=== PATIENT | female | born 1960 | race Caucasian/White ===

== ENCOUNTER 2020-04-18 10:13 | Emergency (ER) | payer BC ==
[~2020-04-18] VITALS: Ht 152.4 cm; Wt 64.0 kg
--- NOTE | 2020-04-18 10:46 | Emergency Department Note ---
History of Present Illnes History of Present Illness Chief Complaint: General Medicine Complaints History of Present Illness This is a 60 year old female Patient presents to the ER with reports of low platelet count. Patient reports that her doctor wanted her to get platelet transfusions. ER MD made patient aware that she would have to be admitted for the blood products transfusion. Patient states she does not want to be admitted here and states she would like to leave. 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 Any updates have been documented here. Past Medical History Recent Fever: No Clinical Suspicion of Infectio: No New/Unexplained Change in Ment: No Other Medical History: AML Past Surgical History: Social History Smoking Cessation: Never Smoker Counseling Performed: No Alcohol Use: None Any Illegal Drug Use: No TB Exposure/Symptoms: No Physically hurt or threatened: No Family History Family history of heart diseas: No Other Any Pre-Existing Lines (PICC,: No Review of Systems Review of Systems Constitutional: Reports no symptoms EENTM: Reports no symptoms Cardiovascular: Reports no symptoms Respiratory: Reports no symptoms Gastrointestinal: Reports no symptoms Genitourinary: Reports no symptoms Musculoskeletal: Reports no symptoms Integumentary: Reports as per HPI Neurological: Reports no symptoms Psychological: Reports no symptoms Endocrine: Reports no symptoms Hematological/Lymphatic: Reports no symptoms Physical Exam Related Data Triage Vital Signs Vital Signs Date Time Temp Pulse Resp B/P (MAP) Pulse Ox O2 Delivery O2 Flow Rate FiO2 04/18/20 10:18 97.8 97 16 160/83 100 Room Air Vital signs reviewed: Yes Physical Exam CONSTITUTIONAL Constitutional: Present well-developed, Present well-nourished HENT HENT: Present normocephalic, Present atraumatic, Present oropharynx clear/mois t, Present nose normal HENT L/R: Present left ext ear normal, Present right ext ear normal EYES Eyes: Reports PERRL, Reports conjunctivae normal NECK Neck: Present ROM normal PULMONARY Pulmonary: Present effort normal, Present breath sounds normal CARDIOVASCULAR Cardiovascular: Present regular rhythm, Present heart sounds normal, Present capillary refill normal, Present normal rate GASTROINTESTINAL Abdominal: Present soft, Present nontender, Present bowel sounds normal GENITOURINARY Genitourinary: Present exam deferred SKIN Skin: Present warm, Present dry, Present other (small areas of ecchymosis left arm, 1 cm area in mouth left cheek internally) MUSCULOSKELETAL Musculoskeletal: Present ROM normal NEUROLOGICAL Neurological: Present alert, Present oriented x 3, Present no gross motor or sensory deficits PSYCHOLOGICAL Psychological: Present mood/affect normal, Present judgement normal Assessment & Plan Medical Decision Making MDM pt advised that due to small ER here, we will need to admit for transfusion - she does not want admission. I offered to transfer pt but she wants to leve and go to [facility] where they will do transfusion Reassessment Reassessment dc home, pt wants to drive to [facility] now Assessment & Plan Final Impression: (1) Thrombocytopenia Depart Disposition: HOME, SELF-CARE Last Vital Signs Date Time Temp Pulse Resp B/P (MAP) Pulse Ox O2 Delivery O2 Flow Rate FiO2 04/18/20 10:18 97.8 97 16 160/83 100 Room Air SID MARTINEZ MD Apr 18, 2020 10:46
--- OUTSIDE RECORDS SUMMARY | 2020-04-19 09:58 | XMS REPORT | Clinical Summary ---
Author Author [facility] Address Unknown Phone Unavailable Care Team Providers Care Medical Office Manager Name Role Phone Kayleigh Green MD PCP Allergies Comments Active Allergy Reactions Severity Noted Date Latex Dermatitis 08/20/2019 Medications End Date Status Medication Sig Dispensed Refills Start Date Active cyanocobalamin, vitamin Take 800 mcg 0 B-12, 1,000 mcg/mL drops by mouth daily. Active ascorbic acid, vitamin C, Take 1,000 mg 0 (VITAMIN C) 1000 MG by mouth tablet daily. 11/07/2020 Active calcium carbonate-vitamin Take 1 tablet 0 10/28 D3 500 mg-200 unit per by mouth 0 tablet daily. Active polycarbophil (FIBERCON) Take 625 mg 0 625 mg tablet by mouth daily. Active multivitamin (THERAGRAN) Take 1 tablet 0 tablet by mouth daily. Active omeprazole (PriLOSEC) 20 Take 1 0 MG capsule capsule by mouth daily. Active valACYclovir (VALTREX) Take 500 mg 0 500 MG tablet by mouth 0 daily. Active VITAMIN B COMPLEX ORAL Take 1 tablet 0 by mouth daily. Active vitamin E 1000 UNIT Take 1,000 0 capsule Units by mouth daily. Active voriconazole (VFEND) 200 Take 1 tablet 0 02/28 / MG tablet by mouth 2 0 (two) times a day. 01/27/2021 Active zinc sulfate (ZINCATE) Take 200 mg 0 220 (50) mg capsule by mouth 0 daily. 09/21/2019 ciprofloxacin (Cipro) 500 Take 1 tablet 60 tablet 0 08/21/202 MG tablet (500 mg 0 total) by mouth 2 (two) times a day for 30 days. 09/21/2019 sulfamethoxazole-trimetho Take 1 tablet 12 tablet 0 prim (Bactrim DS) 800-160 by mouth 3 0 mg per tablet (three) times a week for 30 days. 01/14/2020 levoFLOXacin (LEVAQUIN) Take 500 mg 0 500 MG tablet by mouth 0 daily. 02/26/2020 voriconazole (VFEND) 200 Take 200 mg 0 12/21 MG tablet by mouth 2 0 (two) times a day. Active Problems Problem Noted Date Pre-transplant evaluation for stem cell transplant 1 Acute myeloid leukemia not having achieved remission 2020 Overview: 08/20/2019 bone marrow showed MDS with e xcess blasts-2, erythroid predominance, 15% myeloblasts and moder ate myelofibrosis grade 2, focal increase in myeloblasts 20%. Flow showe d 7% myeloblasts POSITIVE: CD13, CD34, HLA-DR. 09/07/2019 whole blood flow showed 9.23% myeloblasts. CD34, CD117, CD13, CD33, CD7, HLA-DR. NGS RUNX1+ at 45.9%, FISH negative for FLt3, IDHA, IDH2, RNUX1, BCR-Abl, not able to do cytogene tics 09/20/2019 Induction chemo with daunarub icon + cytarabine 3+7, complicated by neutropenic fever 10/23/2019 bone marrow showed 20% myelob lasts. 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 CT showed bilateral up per lobe lesions and MRI of LLE showed muscle abscesses. 11/28/2019 bone marrow shows complete rem ission with 20-80% cellularity, 1% blasts, normal female cytogenetics. 12/17/19 HiDac cycle #1 consolidation, c omplicated by admission for neutropenic fever 12/28-01/04/2020 01/23/2020 HiDac cycle #2 02/20/2020 HiDAC cycle #3 on 02/20/2020, complicated by neutropenic fever with admission on 03/08-03/12/2020. 03/27/2020 BM 70% cellular, AML in lemuel ssion. Flow negative. Cytogenetics 46 XX FISH AML normal RUNX-1 PCR negati ve NGS: RUNX1 c.292del, p.Zkk73mi ([id number]) Variant Frequency: 48.2%, DNMT3A c.1507del, p.Nmm838js ([id number]) Variant Frequency: 2.0% EZH2 c.1555T>C, p.Sin264Qxb ([id number]) Variant Frequency: 48.1% Fusarium 09/28/2019 Overview: 09/2019 skin Aspergillus 09/28/2019 Overview: skin/lungs Pancytopenia 08/20/2019 GI bleed 08/20/2019 Encounters Care Team Description Date Type Specialty Hao Luciano 04/18/2020 Documentation Hematology and Onco logy Caitlyn Rivas MD Canceled (Insurance Pending) 04/17/2020 Infusion Neurology 04/16/2020 Shelley aBshir, Maurice Matthews MD Acute myeloid leukemia not having achiev ed remission (HCC) (Primary Dx) 04/02/2020 Hospital Hematology and Onco logy Encounter 04/02/2020 Shelley Bashir NP Carrum, George, MD Acute myeloid leukemia not having achiev ed remission (HCC) (Primary Dx); Pre-transplant evaluation for stem cell transplant 03/27/2020 [facility] Hematology and Onco logy Encounter 03/27/2020 Keena Cooley LCSW 03/27/2020 Social Work Oncology Maurice Olea MD Acute myeloid leukemia not having achiev ed remission (HCC); Pre-transplant evaluation for stem cell transplant; Status post chemotherapy 03/25/2020 Hospital Procedural Cardiolo gy Encounter Teresa Levi RN Acute myeloid leukemia not having achiev ed remission (HCC) (Primary Dx); Pre-transplant evaluation for stem cell transplant 03/25/2020 Orders Only Hematology and Onco logy 03/25/2020 Maurice Swenson MD Acute myeloid leukemia not having achiev ed remission (HCC); Pre-transplant evaluation for stem cell transplant; Status post chemotherapy 03/18/2020 Hospital Radiology Encounter Maurice Olea MD Acute myeloid leukemia not having achiev ed remission (HCC) 03/18/2020 Hospital Pulmonology Encounter 03/18/2020 Travel 03/13/2020 Teresa Roberts RN Acute myeloid leukemia not having achiev ed remission (HCC) (Primary Dx); Pre-transplant evaluation for stem cell transplant; Status post chemotherapy 03/13/2020 Orders Only Hematology and Onco logy Maurice Olea MD 03/03/2020 Lab Lab Maurice Olea MD 02/22/2020 Lab Lab Maurice Olea MD Escudier, Susan M., MD Canceled (Scheduling Error) 02/13/2020 Infusion Neurology Caitlyn Rivas MD Acute myeloid leukemia not having achiev ed remission (HCC) (Primary Dx) 02/13/2020 Infusion Neurology 02/13/2020 Travel 02/12/2020 Travel Maurice Olea MD 02/11/2020 Lab Lab 02/11/2020 Teresa Roberts RN Acute myeloid leukemia not having achiev ed remission (HCC) (Primary Dx) 02/11/2020 Orders Only Hematology and Onco logy Maurice Olea MD 01/25/2020 Lab Lab Maurice Olea MD Scholoff, Audrey C., JACEY Acute myeloid leukemia not having achiev ed remission (HCC) (Primary Dx) 01/10/2020 Hospital Hematology and Onco logy Encounter 01/10/2020 Teresa Roberts RN Stem cell donor (Primary Dx) 2020 Orders Only Hematology and Onco logy Teresa Levi RN 2020 Orders Only Hematology and Onco logy Maurice Olea MD Scholoff, Audrey C., JACEY Canceled (Admitted/Hospitalized) 01/07/2020 [facility] Hematology and Onco logy Encounter Maurice Olea MD Scholoff, Audrey C., MANAGER CAMP Canceled (Department/Provider) 01/03/2020 [facility] Hematology and Onco logy Encounter Radha Burciaga MD Bavare, Arusha Amod, MD Bokhari, Syed Muhammad Javed, MD Pancytopenia (HCC) (Primary Dx); Gastrointestinal hemorrhage associated with gastritis, unspecified gastritis type 08/20/2019 [facility] Internal Me dicine - Encounter 08/22/2019 Flako Diane NP Gastrointestinal hemorrhage associated w ith gastritis, unspecified gastritis type (Primary Dx) 08/20/2019 Orders Only Family Medicine after 04/18/2019 Surgical History Surgery Date Site/Laterality Comments CYST REMOVAL 05/30/1991 - Right ear 05/29/1992 SECTION 05/30/1988 - 199105/29/1989 TONSILLECTOMY AND 05/30/1960 - ADENOIDECTOMY 05/29/1961 PERIPHERALLY INSERTED 09/19/2019 Right CENTRAL CATHETER INSERTION Medical History Medical History Date Comments AML (acute myelogenous leukemia) (HCC) 07/2019 Chronic tension headaches Aspergillus (HCC) 09/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 Mood disorder (HCC) anxiety/depression Family History Medical History Relation Name Comments Diabetes Brother age 64 Hepatitis Brother age 55 Hep C Alzheimer's disease Father 76 Heart disease Father 76 hypertension Schizophrenia Father 76 Acute myelogenous Mother 72 leukemia Relation Name Status Comments Brother age 64 Alive Brother age 55 Father 76 Mother 72 Social History Date Tobacco Use Types Packs/Day Years Used Quit: 1982 Former Smoker Cigarettes 0.1 6 Smokeless Tobacco: Never Used Drinks/Week oz/Week Comments Alcohol Use Not Currently Social Isolation Answer Date Recorded In a typical week, how many times do you talk on More than three times a week 01/10/2020 the phone with family, friends, or neig hbors? How often do you get together with friends or More than th ree times a week 01/10/2020 relatives? How often do you attend druze or confucianism 1 to 4 times p year 01/10/2020 services? Do you belong to any clubs or organizations such No 01/10/2020 as druze groups, unions, fraternal or athletic groups, or school groups? How often do you attend meetings of the clubs or Never 01/10/2020 organizations you belong to? Are you now , , , , 01/10/2020 never or living with a partner? Physical Activity Answer Date Recorded On average, how many days per week do you engage 0 days 01/10/2020 in moderate to strenuous exercise (like walking fast, running, jogging, dancing, swimmi ng, biking, or other activities that cause a light or heavy sweat)? On average, how many minutes do you engage in Not as ked exercise at this level? Stress Answer Date Recorded Do you feel stress - tense, restless, nervous, or To some extent 01/10/2020 anxious, or unable to sleep at night be cause your mind is troubled all the time - these d ays? Financial Resource Strain Answer Date Recorde d How hard is it for you to pay for the very basics Not hard at all 01/10/2020 like food, housing, medical care, and h eating? Intimate Partner Violence Answer Date Recorde d Within the last year, have you been afraid of your No 01/10/2020 partner or ex-partner? Within the last year, have you been humiliated or No 01/10/2020 emotionally abused in other ways by you r partner or ex-partner? Within the last year, have you been kicked, hit, No 01/10/2020 slapped, or otherwise physically hurt b y your partner or ex-partner? Within the last year, have you been raped or No 01/10/2020 forced to have any kind of sexual activ ity by your partner or ex-partner? Food Insecurity Answer Date Recorded Within the past 12 months, you worried that your Never renuka e 01/10/2020 food would run out before you got money to buy more. Within the past 12 months, the food you bought Never true 01/10/2020 just didn't last and you didn't have mo saúl to get more. Transportation Needs Answer Date Recorded In the past 12 months, has lack of transportation No 01/10/2020 kept you from medical appointments or f rom getting medications? In the past 12 months, has lack of transportation No 01/10/2020 kept you from meetings, work, or gettin g things needed for daily living? Sex Assigned at Date Recorded Not on file Industry Job Start Date Occupation Not on file Not on file Not on file Date Recorded COVID-19 Exposure Response 04/16/2020 3:47 PM AUDIOMETRIST In the last month, have you been in contact with [facility] to assess someone who was confirmed or suspected to have Coronavirus / COVID-19? Last Filed Vital Signs Reading Time Taken Comments Vital Sign 168/78 04/02/2020 9:53 AM AUDIOMETRIST Blood Pressure 77 04/02/2020 9:53 AM AUDIOMETRIST Pulse 36.8 C (98.2 F) 04/02/2020 9:53 AM AUDIOMETRIST Temperature 18 04/02/2020 9:53 AM AUDIOMETRIST Respiratory Rate 100% 04/02/2020 9:53 AM AUDIOMETRIST Oxygen Saturation - - Inhaled Oxygen Concentration 64 kg (141 lb 1.5 oz) 04/02/2020 9:53 AM AUDIOMETRIST Weight 149 cm (4' 10.66") 04/02/2020 9:53 AM AUDIOMETRIST Height 28.83 04/02/2020 9:53 AM AUDIOMETRIST Body Mass Index Plan of Treatment Health Maintenance Due Date Last Done Comments CERVICAL CANCER SCREENING 01/10/1980 BREAST CANCER SCREENING 2009 COLONOSCOPY SCREENING 2009 SHINGLES VACCINES (#1) 2009 INFLUENZA VACCINE 12/29/2019 Procedures Comments Procedure Name Priority Date/Time Associated Diag nosis FAMILY TYPING (HAPLOTYPE Routine 03/31/2020 REPORT) 12:49 PM AUDIOMETRIST SURGICAL PATHOLOGY Routine 03/27/2020 REQUEST 1:01 PM CDT MISCELLANEOUS REFERRAL Routine 03/27/2020 TEST 12:42 PM CDT MISCELLANEOUS REFERRAL Routine 03/27/2020 TEST 12:42 PM CDT MISCELLANEOUS REFERRAL Routine 03/27/2020 TEST 12:42 PM CDT BONE MARROW TRAY Routine 03/27/2020 11:42 AM CDT FLOW CYTOMETRY EVALUATION Routine 03/27/2020 11:42 AM CDT LOW RESOLUTION FULL STAT 03/27/2020 TYPING BY SSO 10:31 AM CDT URINE CULTURE STAT 03/27/2020 10:05 AM CDT ECG 12-LEAD Routine 03/27/2020 Pre-transplant evaluation 9:56 AM CDT for stem cell transplant Acute myeloid leukemia not having achieved remission (HCC) TOTAL IRON BINDING STAT 03/27/2020 Pre-transpl ant evaluation CAPACITY 9:33 AM CDT for stem cell trans plant Acute myeloid leukemia not having achieved remission (HCC) FERRITIN LEVEL STAT 03/27/2020 Pre-transplant evaluation 9:33 AM CDT for stem cell transplant Acute myeloid leukemia not having achieved remission (HCC) JUANI-UMAÑA VIRUS STAT 03/27/2020 Pre-transpl ant evaluation ANTIBODY TEST 9:33 AM CDT for stem cell trans plant Acute myeloid leukemia not having achieved remission (HCC) TOXOPLASMA GONDII STAT 03/27/2020 Pre-transpla nt evaluation ANTIBODY, IGG 9:32 AM CDT for stem cell trans plant Acute myeloid leukemia not having achieved remission (HCC) TOXOPLASMA IGM AB STAT 03/27/2020 Pre-transpla nt evaluation 9:32 AM CDT for stem cell transplant Acute myeloid leukemia not having achieved remission (HCC) IMMUNOGLOBULIN M STAT 03/27/2020 Pre-transplan t evaluation 9:32 AM CDT for stem cell transplant Acute myeloid leukemia not having achieved remission (HCC) IMMUNOGLOBULIN A STAT 03/27/2020 Pre-transplan t evaluation 9:32 AM CDT for stem cell transplant Acute myeloid leukemia not having achieved remission (HCC) IMMUNOGLOBULIN G STAT 03/27/2020 Pre-transplan t evaluation 9:32 AM CDT for stem cell transplant Acute myeloid leukemia not having achieved remission (HCC) HCG QUANTITATIVE, SERUM STAT 03/27/2020 Pre-tr ansplant evaluation 9:32 AM CDT for stem cell transplant Acute myeloid leukemia not having achieved remission (HCC) SICKLE CELL SCREEN STAT 03/27/2020 Pre-transpl ant evaluation 9:32 AM CDT for stem cell transplant Acute myeloid leukemia not having achieved remission (HCC) SMEAR REVIEW STAT 03/27/2020 9:31 AM CDT ESTIMATED GFR STAT 03/27/2020 9:31 AM CDT B NATRIURETIC PEPTIDE STAT 03/27/2020 Pre-nicole splant evaluation 9:31 AM CDT for stem cell transplant Acute myeloid leukemia not having achieved remission (HCC) TYPE AND SCREEN STAT 03/27/2020 Pre-transplant evaluation 9:31 AM CDT for stem cell transplant Acute myeloid leukemia not having achieved remission (HCC) URINALYSIS SCREEN AND STAT 03/27/2020 Pre-nicole splant evaluation MICROSCOPY, WITH REFLEX 9:31 AM CDT for stem cell transplant TO CULTURE Acute myeloid leukemia not having achieved remission (HCC) MAGNESIUM LEVEL STAT 03/27/2020 Pre-transplant evaluation 9:31 AM CDT for stem cell transplant Acute myeloid leukemia not having achieved remission (HCC) PHOSPHORUS LEVEL STAT 03/27/2020 Pre-transplan t evaluation 9:31 AM CDT for stem cell transplant Acute myeloid leukemia not having achieved remission (HCC) URIC ACID LEVEL STAT 03/27/2020 Pre-transplant evaluation 9:31 AM CDT for stem cell transplant Acute myeloid leukemia not having achieved remission (HCC) LDH STAT 03/27/2020 Pre-transplant evaluation 9:31 AM CDT for stem cell transplant Acute myeloid leukemia not having achieved remission (HCC) COMPREHENSIVE METABOLIC STAT 03/27/2020 Pre-tr ansplant evaluation PANEL 9:31 AM CDT for stem cell trans plant Acute myeloid leukemia not having achieved remission (HCC) PARTIAL THROMBOPLASTIN STAT 03/27/2020 Pre-tra nsplant evaluation TIME (PTT) 9:31 AM CDT for stem cell trans plant Acute myeloid leukemia not having achieved remission (HCC) PROTHROMBIN TIME WITH INR STAT 03/27/2020 Pre- transplant evaluation 9:31 AM CDT for stem cell transplant Acute myeloid leukemia not having achieved remission (HCC) HC COMPLETE BLD COUNT STAT 03/27/2020 Pre-nicole splant evaluation W/AUTO DIFF 9:31 AM CDT for stem cell trans plant Acute myeloid leukemia not having achieved remission (HCC) NM MYOCARDIAL PERFUSION Routine 03/25/2020 Acute myeloid leukemia STRESS REST 2 DAY 12:19 PM CDT not having achieved remission (HCC) Pre-transplant evaluation for stem cell transplant Status post chemotherapy CV STRESS TEST NUCLEAR Routine 03/25/2020 Acute m yeloid leukemia CARDIO 12:19 PM CDT not having achieved remission (HCC) Pre-transplant evaluation for stem cell transplant Status post chemotherapy XR CHEST 2 VW Routine 03/18/2020 Acute myeloid l eukemia 2:25 PM CDT not having achieved remission (HCC) Pre-transplant evaluation for stem cell transplant Status post chemotherapy SPIROMETRY, DIFFUSION, Routine 03/18/2020 Acute m yeloid leukemia LUNG VOLUMES 1:20 PM CDT not having achieved remission (HCC) FAMILY TYPING (HAPLOTYPE Routine 03/03/2020 REPORT) 11:52 AM CDT FAMILY TYPING (HAPLOTYPE Routine 02/22/2020 REPORT) 7:55 AM CDT TRANSFUSE PLATELET Routine 02/13/2020 Acute myelo id leukemia PHERESIS 11:59 AM CDT not having achieved remission (HCC) PREPARE PLATELET PHERESIS Routine 02/13/2020 Acut e myeloid leukemia 8:59 AM CDT not having achieved remission (HCC) TYPE AND SCREEN Routine 02/13/2020 Acute myeloid leukemia 8:59 AM CDT not having achieved remission (HCC) FAMILY TYPING (HAPLOTYPE Routine 01/25/2020 REPORT) 11:24 AM CDT SEQUENCE BASED TYPING STAT 01/10/2020 9:37 AM CDT [facility] SEROLOGY TEST STAT 01/10/2020 Acute myeloid leukemia 9:37 AM CDT not having achieved remission (HCC) CYTOMEGALOVIRUS AB, IGM STAT 01/10/2020 Acute myeloid leukemia 9:37 AM CDT not having achieved remission (HCC) CYTOMEGALOVIRUS AB, IGG STAT 01/10/2020 Acute myeloid leukemia 9:37 AM CDT not having achieved remission (HCC) MANUAL DIFFERENTIAL Routine 08/22/2019 5:49 AM CDT IMMATURE PLATELET Routine 08/22/2019 FRACTION 5:49 AM CDT ESTIMATED GFR Routine 08/22/2019 5:49 AM CDT BASIC METABOLIC PANEL Routine 08/22/2019 5:49 AM CDT CBC WITH PLATELET AND Routine 08/22/2019 DIFFERENTIAL 5:49 AM CDT SURGICAL PATHOLOGY Routine 08/21/2019 REQUEST 12:[address] BONE MARROW BX W ASP Routine 08/21/2019 SAME SITE 12:33 PM CDT HEPATITIS ACUTE PANEL Routine 08/21/2019 9:42 AM CDT US ABDOMEN COMPLETE Routine 08/21/2019 9:12 AM CDT MANUAL DIFFERENTIAL Routine 08/21/2019 5:02 AM CDT IMMATURE PLATELET Routine 08/21/2019 FRACTION 5:02 AM CDT CBC WITH PLATELET AND Routine 08/21/2019 DIFFERENTIAL 5:02 AM CDT TRANSFUSE RED BLOOD CELLS Routine 08/21/2019 1:56 AM CDT TRANSFUSE RED BLOOD CELLS Routine 08/20/2019 8:45 PM CDT TOTAL IRON BINDING Routine 08/20/2019 CAPACITY 7:12 PM CDT LDH Routine 08/20/2019 7:12 PM CDT HAPTOGLOBIN Routine 08/20/2019 7:12 PM CDT DIRECT KENAN' (DEO) Routine 08/20/2019 7:12 PM CDT VITAMIN B12 LEVEL Routine 08/20/2019 7:12 PM CDT FERRITIN LEVEL Routine 08/20/2019 7:12 PM CDT FLOW CYTOMETRY EVALUATION Routine 08/20/2019 7:12 PM CDT XR CHEST 1 VW PORTABLE Routine 08/20/2019 6:50 PM CDT TTE COMPLETE, W CONTRAST, Routine 08/20/2019 W DOPPLER ([id number]) 6:35 PM CDT ECG 12-LEAD Routine 08/20/2019 5:55 PM CDT PREPARE PLATELET PHERESIS STAT 08/20/2019 5:50 PM CDT PREPARE RBC STAT 08/20/2019 5:50 PM CDT PREPARE PLATELET PHERESIS STAT 08/20/2019 5:50 PM CDT PREPARE RBC STAT 08/20/2019 5:50 PM CDT MANUAL DIFFERENTIAL STAT 08/20/2019 5:50 PM CDT IMMATURE PLATELET STAT 08/20/2019 FRACTION 5:50 PM CDT ESTIMATED GFR STAT 08/20/2019 5:50 PM CDT PARTIAL THROMBOPLASTIN STAT 08/20/2019 TIME (PTT) 5:50 PM CDT TYPE AND SCREEN STAT 08/20/2019 5:50 PM CDT PROTHROMBIN TIME WITH INR STAT 08/20/2019 5:50 PM CDT COMPREHENSIVE METABOLIC STAT 08/20/2019 PANEL 5:50 PM CDT CBC WITH PLATELET AND STAT 08/20/2019 DIFFERENTIAL 5:50 PM CDT AMMONIA LEVEL Routine 08/20/2019 5:50 PM CDT after 04/18/2019 Results * Family typing (haplotype report) (03/31/2020 12:49 PM AUDIOMETRIST) Only the most recent of 4 results within the time period is included. [facility] Famiy typing See link below for PDF Lab [place] (haplotype Report [facility] report) HOSPITAL Specimen Performing Organization Address City/State/ZIP Code P raine Number [address] [address] PATHOLOGY AND GENOMIC MEDICINE [facility] * Surgical pathology request (03/27/2020 1:01 PM CDT) Only the most recent of 2 results within the time period is included. [facility] DEPARTMENT OF PATHOLOGY AND GENOMIC MEDICINE Surgical See link below for PDF Lab [facility] DEPART [facility] pathology Report OF PATHOLOGY report AND GENOMIC MEDICINE Result status This is Final Report for [facility] DEPARTME NT [id number] OF PATHOLOGY AND GENOMIC MEDICINE Specimen Performing Organization Address City/State/ZIP Code P raine Number [facility] DEPARTMENT OF [address] [place] [address] PATHOLOGY AND GENOMIC MEDICINE * Miscellaneous referral test (03/27/2020 12:42 PM CDT) Only the most recent of 3 results within the time period is included. Misc test name [facility] SHOWN ABOVE Misc test see note SHOWN ABOVE result Comment: CHROMOSOME/FISH ANALYSIS ONCOLOGY Chromosome Analysis Indication: AML Sample Type: BONE MARROW METHOD OF ANALYSIS: GTG-Banding RESULTS:999 46,XX[20] INTERPRETATION : Normal female chormosome analysis with no clonal abnormalities observed. ---- FISH ONCOLOGY ANALYSIS Method of Analysis: FISH FISH Nuclei examined: 1000 Results: NORMAL: 8 Centromere (D8Z2x2) - Gain of chromosome 8 NOT detected t(8;21)(q22;q22) (QRNC4N5/RUNX1) - Translocation NOT detected 11q23 (KMT2A) - Rearrangement NOT detected t(15;17)(q24;q21) (PML/JANET) - Translocation NOT detected inv(16)(p13.1q22) or t(16;16) (CBFB) - Rearrangement NOT detected INTERPRETATION : Normal FISH analysis for the above loci. Fluorescence in situ hybridization (FISH) studies were performed on this specimen using a panel of DNA probes as listed above designed to detect abnormalities frequently observed in acute myeloid leukemia (AML). At least two hundred nuclei were analyzed for each probe, and all probe sets scored within their normal ranges. Therefore, these results are interpreted as normal. It should be noted that approximately 2-5% of APL patients are estimated to have a cryptic insertion of JANET into PML which could be missed by the dual color, dual fusion probe set. If there is a strong clinical impression of APL, PCR analysis would be warranted. ISCN: nuc natasha(D8Z2,HYUQ0P9,KMT2A,PML,CBF B,JANET,RUNX1)x2[200] Test performed by: [facility] [address] [place] [address]. [place] [id number] Specimen Performing Organization Address City/State/ZIP Code P raine Number [facility] [place] [place] [address] PATHOLOGY AND GENOMIC MEDICINE SHOWN ABOVE * Bone marrow tray (03/27/2020 11:42 AM CDT) Bone marrow Done [facility] Specimen Fluid Performing Organization Address City/[facility]/[place] [address] PATHOLOGY AND GENOMIC MEDICINE [address] * Flow cytometry evaluation (03/27/2020 11:42 AM CDT) Only the most recent of 2 results within the time period is included. Pathologist [facility] Flow cytometry See link below for PDF Lab [place] evaluation Report [facility] Specimen Narrative Performed At This result has an attachment that is n ot available. Performing Organization Address [facility] Code P raine Number [facility] [place] [place] [address] PATHOLOGY AND GENOMIC MEDICINE [facility] * Low resolution full typing by SSO (03/27/2020 10:31 AM CDT) Pathologist [facility] Interpretation Note: HLA typing was performed [place] by PCR-SSO DNA based [facility] procedures. HOSPITAL Note: The serological phenotype is an interpretation based on molecular typing data. [facility] Low resolution See link below for PDF [facility] full typing by Report [facility] Specimen Blood Performing Organization Address City/[facility]/ZIP Code P raine Number [facility] [place] [address] PATHOLOGY AND GENOMIC MEDICINE [address] * Urine culture (03/27/2020 10:05 AM CDT) [facility] Urine culture SEE COMMENTComment: [place] Bacteriuria screen negative. [facility] Specimen Performing Organization Address City/[facility]/ZIP Code P raine Number [facility] DEPARTMENT OF [address] [place] [address] PATHOLOGY AND GENOMIC MEDICINE [address] * ECG 12 lead (03/27/2020 9:56 AM CDT) Only the most recent of 2 results within the time period is included. Ventricular 66 [facility] MUSE rate Atrial rate 66 [facility] MUSE [place] interval 178 [facility] QRSD interval 68 [facility] QT interval 412 [facility] QTC interval 431 [facility] P axis 1 53 [facility] MUSE QRS axis 1 56 HM MUSE T wave axis 54 [facility] EKG impression Normal sinus [facility] MUSE rhythm- Specimen Narrative Performed At This result has an attachment that is n ot available. Performing Organization Address City/[facility] [place] [address] * Juani-Umaña virus antibody test (03/27/2020 9:33 AM CDT) Pathologist [facility] EBV Ab to viral Positive (A) Negative [place] capsid Ag, IgG [facility] EBV Ab to viral Negative Negative [place] capsid Ag, IgM [facility] EBV Ab to Positive (A) Negative [place] nuclear Ag, IgG [facility] EBV Ab to early Negative Negative [place] (D) Ag, IgG [facility] Juani-Umaña SEE COMMENTComment: Infection [place] virus antibody Status: Results may suggest HOAHAOISM interpretation past EBV infection. HOSPITAL Specimen Serum Performing Organization Address [facility] P raine Number [facility] DEPARTMENT OF [address] [place] [address] PATHOLOGY AND GENOMIC MEDICINE [address] * Total iron binding capacity (03/27/2020 9:33 AM CDT) Only the most recent of 2 results within the time period is included. Pathologist [facility] Iron level 60 37 - 145 ug/dL [facility] Iron binding 228 200 - 400 ug/dL [facility] % Saturation 26.3 15.0 - 38.0 % [facility] Specimen Plasma Performing Organization Address [facility] P raine Number [facility] [place] [place] [address] PATHOLOGY AND GENOMIC MEDICINE [address] * Ferritin level (03/27/2020 9:33 AM CDT) Only the most recent of 2 results within the time period is included. [facility] Ferritin level 1,817 (H) 13 - 150 ng/mL [facility] Specimen Plasma Performing Organization Address City/[facility] P raine Number [facility] [place] [address] PATHOLOGY AND GENOMIC MEDICINE [address] * Toxoplasma IgM Ab (03/27/2020 9:32 AM CDT) [facility] Toxoplasma IgM Negative Negative [facility] Specimen Blood Performing Organization Address [facility] P raine Number [facility] [place] [address] PATHOLOGY AND GENOMIC MEDICINE [address] * Toxoplasma gondii antibody, IgG (03/27/2020 9:32 AM CDT) [facility] Toxoplasma <3 0 - 9 IU/mL [place] gondii Ab, IgG Comment: HOAHAOISM Equal or less than 9 IU/mL HOSPITAL Negative; No previous T. gonii infection Specimen Serum Performing Organization Address [facility] P raine Number [facility] [place] [address] PATHOLOGY AND GENOMIC MEDICINE [address] * Sickle cell screen (03/27/2020 9:32 AM CDT) [facility] Sickle cells Negative [place] Comment: HOAHAOISM This is a screening test. If HOSPITAL positive, confirmation by a definitive method such as Hemoglobin Electrophoresis is recommended if clinically indicated. Smear review, Smear Reviewed [place] sickle cell HOAHAOISM screen HOSPITAL Specimen Plasma Performing Organization Address [facility] P raine Number [facility] [place] [address] PATHOLOGY AND GENOMIC MEDICINE [address] * hCG quantitative, serum (03/27/2020 9:32 AM CDT) [facility] hCG <1 0 - 5 mIU/mL [place] quantitative, Comment: HOAHAOISM serum Reference range for HCG Quant HOSPITA L applies to males and non- females. Post Menopausal 0.0 - 8.1 mIU/mL Specimen Plasma Performing Organization Address City/[facility] Code P raine Number [facility] DEPARTMENT OF [address] [place] [address] PATHOLOGY AND GENOMIC MEDICINE [address] * Immunoglobulin A (03/27/2020 9:32 AM CDT) IgA <50 (L) 70 - 400 mg/dL [facility] Specimen Plasma Performing Organization Address City/[facility]/ZIP [facility] P raine Number [facility] [place] [address] PATHOLOGY AND GENOMIC MEDICINE [address] * Immunoglobulin M (03/27/2020 9:32 AM CDT) IgM <25 (L) 33 - 255 mg/dL [facility] Specimen Plasma Performing Organization Address City/[facility] P raine Number [facility] [place] [address] PATHOLOGY AND [facility] MEDICINE [address] * Immunoglobulin G (03/27/2020 9:32 AM CDT) IgG 509 (L) 700 - 1,600 mg/dL [facility] Specimen Plasma Performing Organization Address City/[facility] P raine Number [facility] [place] [address] PATHOLOGY AND GENOMIC MEDICINE [address] * Urinalysis screen and microscopy, with reflex to culture (03/27/2020 9:31 AM CDT) Specimen site Clean catch [facility] Color, UA Yellow [facility] Appearance, UA Clear [facility] Specific 1.006 1.001 - 1.035 [place] gravity, [facility] pH, UA 6.0 5.0 - 8.5 [facility] Protein, UA Negative Negative [facility] Glucose, UA Negative Negative [facility] Ketones, UA Negative Negative [facility] Bilirubin, UA Negative Negative [facility] Blood, UA Negative Negative [facility] Nitrite, UA Negative Negative [facility] Urobilinogen, <2.0 <2.0 [facility] Leukocyte Negative Negative [place] esterase, [facility] WBC, UA None seen 0 - 4 /HPF [facility] RBC, UA <1 0 - 5 /HPF [facility] Bacteria, UA None seen None seen [facility] Yeast, UA None seen [facility] Yeast with None seen [place] [facility] Specimen Urine Performing Organization Address City/[facility]/ZIP Code P raine Number [facility] [place] [address] PATHOLOGY AND GENOMIC MEDICINE [address] * Smear review (03/27/2020 9:31 AM CDT) Pathologist [facility] Platelet slide Decreased (A) [facility] Anisocytosis Moderate [facility] Polychromasia Moderate [facility] Tear drop cells Occasional [facility] Schistocytes Occasional [facility] Spherocytes Occasional [facility] Ovalocytes Moderate [facility] Specimen Plasma Performing Organization Address City/[facility] [place] [address] PATHOLOGY [address] * Estimated GFR (03/27/2020 9:31 AM CDT) Only the most recent of 3 results within the time period is included. Pathologist [facility] Estimated GFR >=90 mL/min/1.73 m2 [place] Comment: HOAHAOISM [facility] Interpretation G1 >=90 Normal or high G2 60-89 Mildly decreased G3a 45-59 Mildly to moderately decreased G3b 30-44 Moderately to severely decreased G4 15-29 Severely decreased G5 <15 Kidney failure The eGFR was calculated using the Chronic Kidney Disease Epidemiology Collaboration (CKD-EPI) equation. Interpretation is based on recommendations of the National Kidney Foundation-Kidney Disease Outcomes Quality Initiative (NKF-KDOQI) published in 2014. Specimen Plasma Performing Organization Address City/[facility] [place] [address] PATHOLOGY AND GENOMIC MEDICINE [address] * Partial thromboplastin time, activated (03/27/2020 9:31 AM CDT) Only the most recent of 2 results within the time period is included. PTT 28.3 23.0 - 36.0 sec [place] Comment: HOAHAOISM PTT therapeutic range for HOSPITAL unfractionated heparin is 61.0-112.0 seconds which corresponds to Anti-Xa 0.3-0.7 U/ml. Specimen Blood Performing Organization Address City/State/ZIP Code P raine Number [facility] OF [address] [place] [address] PATHOLOGY AND [facility] MEDICINE [address] * Prothrombin time with INR (03/27/2020 9:31 AM CDT) Only the most recent of 2 results within the time period is included. [facility] Prothrombin 13.8 11.5 - 14.5 sec [facility] INR 1.0 [place] Comment: HOAHAOISM The International Normalized HOSPITAL Ratio (INR) is a therapeutic monitoring tool for patients who are stable on oral anticoagulant therapy. An INR of 2.0-3.0 is suggested for deep vein thrombosis/pulmonary embolism. Specimen Blood Performing Organization Address City/State/[facility] [place] [address] PATHOLOGY AND [facility] MEDICINE [address] * CBC with platelet and differential (03/27/2020 9:31 AM CDT) Only the most recent of 4 results within the time period is included. [facility] WBC 2.87 (L) 4.50 - 11.00 k/uL [facility] RBC 2.92 (L) 4.20 - 5.50 m/uL [facility] HGB 10.6 (L) 12.0 - 16.0 g/dL [facility] HCT 32.2 (L) 37.0 - 47.0 % [facility] MCV 110.3 (H) 82.0 - 100.0 fL [facility] MCH 36.3 (H) 27.0 - 34.0 pg [facility] MCHC 32.9 31.0 - 37.0 g/dL [facility] RDW - SD 76.2 (H) 37.0 - 55.0 fL [facility] MPV 10.4 8.8 - 13.2 fL [facility] Platelet count 74 (L) 150 - 400 k/uL [facility] Neutrophils 57.3 39.0 - 69.0 % [facility] Lymphocytes 14.6 (L) 25.0 - 45.0 % [facility] Monocytes 26.8 (H) 0.0 - 10.0 % [facility] Eosinophils 1.0 0.0 - 5.0 % [facility] Basophils 0.3 0.0 - 1.0 % [facility] Specimen Plasma Performing Organization Address City/[facility]/ZIP Code P raine Number [facility] [place] [address] PATHOLOGY AND [facility] MEDICINE [address] * Type and screen (03/27/2020 9:31 AM CDT) Only the most recent of 3 results within the time period is included. ABO grouping O [facility] Rh type POS [facility] Antibody screen NEG [place] (gel) [facility] Specimen Plasma Performing Organization Address City/[facility]/ZIP Code P raine Number [facility] [place] [address] PATHOLOGY AND [facility] MEDICINE [address] * Uric acid level (03/27/2020 9:31 AM CDT) Uric acid 3.8 2.4 - 5.7 mg/dL [facility] Specimen Plasma Performing Organization Address City/[facility]/ZIP [facility] P raine Number [facility] [place] [address] PATHOLOGY AND [facility] MEDICINE [address] * Phosphorus level (03/27/2020 9:31 AM CDT) Phosphorus 3.7 2.4 - 4.5 mg/dL [facility] Specimen Plasma Performing Organization Address City/[facility]/ZIP [facility] P raine Number [facility] [place] [address] PATHOLOGY AND [facility] MEDICINE [address] * B natriuretic peptide (03/27/2020 9:31 AM CDT) BNP 28 0 - 100 pg/mL [facility] Specimen Blood Performing Organization Address City/[facility]/ZIP [facility] P raine Number [facility] [place] [address] PATHOLOGY AND [facility] MEDICINE [address] * Magnesium level (03/27/2020 9:31 AM CDT) Magnesium 2.1 1.6 - 2.4 mg/dL [facility] Specimen Plasma Performing Organization Address City/State/ZIP Code P raine Number [facility] DEPARTMENT OF [address] [place] [address] PATHOLOGY AND GENOMIC MEDICINE [address] * LDH (03/27/2020 9:31 AM CDT) Only the most recent of 2 results within the time period is included. LDH 301 (H) 87 - 225 U/L [facility] Specimen Plasma Performing Organization Address City/[facility] P raine Number [facility] DEPARTMENT OF [address] [place] [address] PATHOLOGY AND GENOMIC MEDICINE [address] * Comprehensive metabolic panel (03/27/2020 9:31 AM CDT) Only the most recent of 2 results within the time period is included. Sodium 143 135 - 148 mEq/L [facility] Potassium 3.7 3.5 - 5.0 mEq/L [facility] Chloride 104 98 - 112 mEq/L [facility] CO2 25 24 - 31 mEq/L [facility] Anion gap 14@ANIO 7 - 15 mEq/L [facility] BUN 18 8 - 23 mg/dL [facility] Creatinine 0.69 0.50 - 0.90 mg/dL [facility] Glucose 83 65 - 99 mg/dL [facility] Calcium 9.6 8.8 - 10.2 mg/dL [facility] Protein 6.7 6.3 - 8.3 g/dL [place] Comment: [facility] 4.6-7.0 g/dL 1 week 4.4-7.6 g/dL 7 months-1year 5.1-7.3 g/dL 1-2 years 5.6-7.5 g/dL >3 years 6.0-8.0 g/dL 18-150 6.3-8.3 g/dL Albumin 4.0 3.5 - 5.0 g/dL [facility] A/G ratio 1.5 0.7 - 3.8 [facility] Alkaline 84 35 - 104 U/L [place] phosphatase [facility] AST 30 10 - 35 U/L [facility] ALT 25 5 - 50 U/L [facility] Total bilirubin 0.5 0.0 - 1.2 mg/dL [facility] Specimen Plasma Performing Organization Address City/State/ZIP Code P raine Number [facility] DEPARTMENT OF [address] [place] [address] PATHOLOGY [place] [address] HOSPITAL * Cv stress test (03/25/2020 12:19 PM CDT) Resting HR 75 [facility] Resting BP 146&75 [facility] Peak MET 1.0 [facility] Achieved Protocol Name SANGEETA [facility] MUSE Time in 00:01:00 [facility] MUSE Exercise Phase Max Systolic BP 163 [facility] Max Diastolic 74 [facility] BP Max Heart Rate 110 [facility] Max Predicted 159 [facility] MUSE Heart Rate Target HR (220 - Age)*100% [facility] MUSE Formula Test Indication PRE TRANSPLANT [facility] MUSE Arrhy During Ex [facility] ECG Interp [facility] Before EX ECG Interp [facility] During Ex Ex Summary [facility] M[facility] Comment Overall HR [facility] Response to Exercise Overall BP [facility] Response To Exercise Reason for Protocol Complete [facility] MUSE Termination Stress Test Waveform interpreted in report HM MU SE Impression associated with image study . No interpretation is provided as part of this Stress ECG report.--Electronically Signed By Uziel IGLESIAS, José Luis Leonardo ([id number]), city editor Summer Lau ([id number]) on 03/28/2020 4:40:03 AM Specimen Narrative Performed At This result has an attachment that is n ot available. Performing Organization Address City/[facility]/ZIP Code P raine Number [facility] MUSE [address] [place] [address] * Nm myocardial perfusion (03/25/2020 12:19 PM CDT) Specimen Narrative Performed At [facility] Cardiology Department [address] [facility] [address] [place] [address] Phone: Myocardial Pe rfusion Imaging Report Pat.Name: TIMOTHY MATHEWS Pat .ID: [id number] St.Date: 03/25/2020 Refer.MD: MAURICE OLEA MD Exam Time: 9:29:00 AM Study Type:Myocardial Perfusion Imaging Height: 59in Weight: 140lb BSA: 1.59 m2 Age: 8 1960,60Y Sex: FEMALE BP: 146/75 HR: 82 bpm Nuclear Tech:KORI GilmanMT, [facility]/Mello Nguyen [facility] Pat. Stat.:Outpatient Tape Vol: , Nuclear Event ID:[id number] Order ID: [id number] Reason for Study:Pre-Op Clearace for BM T History / Clinical:AML, GI Bleed, Pancy topenia Procedures: Single Day Stress / Rest Si ngle-Photon Emission Computed Tomography Risk Factors:None Clinical Symptoms:Regadenoson 0.4 mg ad ministered intravenously over 10 seconds Physical Exam:S1, S2 Surgery: Outpatient SUMMARY: SCINTIGRAPHIC RESULTS Perfusion Defect Size (% LV) 0 % Total 0 % Ischemia 0 % Scar Left Ventricular Perfusion Results There is normal tracer distribution dur ing stress and rest. Gated SPECT Results The post-stress left ventricular ejecti on fraction is 75 % with normal regional wall motion and left ventricul ar thickening. Left ventricular end-diastolic volume is 55 ml; end-systolic volume is 14 ml. The left ventricle is of normal siz e at stress and at rest. The right ventricle is of normal size with normal wall motion. Conclusion Normal regadenoson Tc-99m tetrofosmin m yocardial perfusion study. The left ventricular ejection fraction is n ormal. CT Findings: There appear to be no coronary artery c alcifications present. The ascending and descending aorta are norm al in size. There is no significant pericardial effusion. Limit ed lung nash show no significant abnormalities. Comments Patients with a normal stress myocardia l perfusion study have a low (< 1%) annual risk of cardiac or non fatal myocardial infarction. Study Quality/Artifacts The study quality is fair. The mild red uction in apical and anteroapical wall counts is probably due to marked breast attenuation artifact rather than coronary artery di sease which resolves with prone imaging and CT correction. Comparison to Previous Study None available. FINDINGS: STRESS: Baseline Vital Signs: Intervention Regadenoson 0.4mg/5ml IV over 10 seconds followed by radiotra cer injection and 5ml saline flush Baseline EKG Normal Sinus Rhythm Resting HR: 82 Atropine Administered: 0 Resting BP: 146/75 Stress Test Results: Target HR: 135 Symptoms and Complications: Stress-induced Arrhythmias None Reason for Stopping Test: As per Regade noson protocol Symptoms During Test Dizziness, GI disc omfort, Shortness of breath Complications None Other: Normal heart rate response to pharmacological stress, Normal blood pressure response to pharm acological stress ECG / Stress Interpretation: No ischemi c ST segment change occurred with stress. Signed 03/27/2020 09:53 AM José Luis Triplett MD Procedure Note Interface, Radiology Results In - 03/27/2020 9:54 AM CDT [facility] Nuclear Cardiology Department [address] [place] [address] Myocardial Perfusion Imaging Report Pat.Name: TIMOTHY MATHEWS Pat.ID: [id number] .Date: 03/25/2020 Refer.MD: MAURICE OLEA MD Exam Time: 9:29:00 AM Study Type:Myocardial Perfusion Imaging Height: 59in Weight: 140lb BSA: 1.59 m2 Age: 8 1960,60Y Sex: FEMALE BP: 146/75 HR: 82 bpm Nuclear Tech:KORI GilmanMT, [facility]/Mello Nguyen [facility] Pat. Stat.:Outpatient Tape Vol: , Nuclear Event ID:[id number] Order ID: [id number] Reason for Study:Pre-Op Clearace for BMT History / Clinical:AML, GI Bleed, Pancytopenia Procedures: Single Day Stress / Rest Single-Photon Emission Computed Tomography Risk Factors:None Clinical Symptoms:Regadenoson 0.4 mg administered intravenously over 10 seconds Physical Exam:S1, S2 Surgery: Outpatient SUMMARY: SCINTIGRAPHIC RESULTS Perfusion Defect Size (% LV) 0 % Total 0 % Ischemia 0 % Scar Left Ventricular Perfusion Results There is normal tracer distribution during stress and rest. Gated SPECT Results The post-stress left ventricular ejection fraction is 75 % with normal regional wall motion and left ventricular thickening. Left ventricular end-diastolic volume is 55 ml; end-systolic volume is 14 ml. The left ventricle is of normal size at stress and at rest. The right ventricle is of normal size with normal wall motion. Conclusion Normal regadenoson Tc-99m tetrofosmin myocardial perfusion study. The left ventricular ejection fraction is normal. CT Findings: There appear to be no coronary artery calcifications present. The ascending and descending aorta are normal in size. There is no significant pericardial effusion. Limited lung nash show no significant abnormalities. Comments Patients with a normal stress myocardial perfusion study have a low (< 1%) annual risk of cardiac or nonf atal myocardial infarction. Study Quality/Artifacts The study quality is fair. The mild reduction in apical and anteroapical wall counts is probably due to marked breast attenuation artifact rather than coronary artery disease which resolves with prone imaging and CT correction. Comparison to Previous Study None available. FINDINGS: STRESS: Baseline Vital Signs: Intervention Regadenoson 0.4mg/5ml IV over 10 seconds followed by radiotracer injection and 5ml saline flush Baseline EKG Normal Sinus Rhythm Resting HR: 82 Atropine Administered: 0 Resting BP: 146/75 Stress Test Results: Target HR: 135 Symptoms and Complications: Stress-induced Arrhythmias None Reason for Stopping Test: As per Regadenoson protocol Symptoms During Test Dizziness, GI discomfort, Shortness of breath Complications None Other: Normal heart rate response to pharmacological stress, Normal blood pressure response to pharmacological stress ECG / Stress Interpretation: No ischemic ST segment change occurred with stress. 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 This overlies the anterior r ight seventh rib. Is not definitely seen laterally. CT or short-term follow-up c hest x-ray could be performed to determine if this persists. Linear atelectasis or scarrin g is seen in the left upper lobe. Cardiomediastinal silhouette is within normal limits. PICC line is seen with its tip in the brachiocephalic SVC junction . 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 This overlies the anterior right seventh rib. Is not definitely seen laterally. CT or short-term follow-up chest x-ray could be performed to determine if this persists. Linear atelectasis or scarring is seen in the left upper lobe. Cardiomediastinal silhouette is within normal limits. PICC line is seen with its tip in the brachiocephalic SVC junction. [id number] Performing Organization Address City/State/ZIP Code P raine Number [facility] [address] [place] [address] * Spirometry, diffusion, lung volumes (03/18/2020 1:20 PM CDT) FEV1 Pre 2.49 1.51 - 2.47 L [facility] FEV1/FVC % Pre 88.40 68.05 - 87.64 % [facility] FVC Pre 2.82 2.01 - 3.15 L [facility] PEF Pre 4.79 3.95 - 6.76 L/s [facility] FEF 25-75% Pre 3.49 0.96 - 2.99 L/s [facility] DLCO Pre 9.60 12.56 - 25.56 [facility] ml/(min*mmHg) DL/VA Pre 2.48 3.39 - 6.02 [facility] ml/(min*mmHg*L) VA SB Pre 3.87 2.98 - 5.18 L [facility] DLCOc Pre 11.67 12.56 - 25.56 [facility] ml/(min*mmHg) KCOc SB Pre 3.02 3.39 - 6.02 [facility] ml/(min*mmHg*L) Hb Pre 8.80 g(Hb)/dL [facility] FRCpl Pre 1.89 1.54 - 3.18 L [facility] RV Pre 0.80 1.07 - 2.22 L [facility] TLC Pre 3.67 2.95 - 4.92 L [facility] RV % TLC Pre 21.69 30.11 - 49.29 % [facility] VC Pre 2.88 2.01 - 3.15 L [facility] ERV Pre 1.10 0.72 - 0.72 L [facility] IC Pre 1.78 1.40 - 1.40 L [facility] Raw Pre 0.41 3.06 - 3.06 [facility] cmH2O*s/L sGaw Predicted 1.08 0.10 - 0.10 [facility] 1/(cmH2O*s) FEV1 Predicted 1.99 [facility] FEV1 LLN 1.51 [facility] FEV1 % Pre of 125.4 % [facility] Predicted FVC Predicted 2.58 [facility] FVC LLN 2.01 [facility] FVC % Pre of 109.3 % [facility] Predicted FEV1/FVC % 78 [facility] Predicted FEV1/FVC % LLN 68 [facility] FEV1/FVC % Pre 113.6 % [facility] of Predicted FEF 25-75% 1.98 [facility] Predicted FEF 25-75% LLN 0.96 [facility] FEF 25-75% % 176.4 % [facility] Pre of Predicted PEF Predicted 5.36 [facility] PEF LLN 3.95 [facility] PEF % Pre of 89.5 % [facility] Predicted VC Predicted 2.58 [facility] VC LLN 2.01 [facility] VC % Pre of 111.5 % [facility] Predicted ERV Predicted 0.72 [facility] ERV LLN 0.72 [facility] ERV % Pre of 152.7 % [facility] Predicted FRCpl % 2.36 [facility] Predicted FRCpl % LLN 1.54 [facility] FRCpl % Pre of 80.2 % [facility] Predicted IC Predicted 1.40 [facility] IC LLN 1.40 [facility] IC % Pre of 126.8 % [facility] Predicted RV Predicted 1.64 [facility] RV LLN 1.07 [facility] RV % Pre of 48.5 % [facility] Predicted RV % TLC 40 [facility] Predicted RV % TLC LLN 30 [facility] RV % TLC % Pre 54.6 % [facility] of Predicted TLC Predicted 3.93 [facility] TLC LLN 2.95 [facility] TLC % Pre of 93.3 % [facility] Predicted Raw Predicted 3.06 [facility] Raw LLN 3.06 [facility] Raw % Pre of 13.5 % [facility] Predicted sGaw Predicted 0.10 [facility] sGaw LLN 0.10 [facility] sGaw % Pre of 1059.2 % [facility] Predicted DLCO Predicted 19.06 [facility] DLCO LLN 12.56 [facility] DLCO % Pre of 50.4 % [facility] Predicted DLCOc Predicted 19.06 [facility] DLCOc LLN 12.56 [facility] DLCOc % Pre of 61.2 % [facility] Predicted DL/VA Predicted 4.71 [facility] DL/VA LLN 3.39 [facility] DL/VA % Pre of 52.7 % [facility] Predicted KCOc SB 4.71 [facility] Predicted KCOc SB LLN 3.39 [facility] KCOc SB % Pre 64.1 % [facility] of Predicted VA SB Predicted 4.08 [facility] VA SB LLN 2.98 [facility] VA SB % Pre of 94.9 % [facility] Predicted Specimen Narrative Performed At This result has an attachment that is n ot available. Performing Organization Address [facility] [place] [address] * Transfuse platelet pheresis (02/13/2020 11:59 AM CDT) Only the most recent of 2 results within the time period is included. * Prepare platelet pheresis, 1 Units (02/13/2020 8:59 AM CDT) Only the most recent of 2 results within the time period is included. Product name Apheresis Platelet ACDA LRIRR [place] #1 [facility] Unit number [id number] [facility] Product code [id number] [facility] Dispense status Transfused [facility] Blood [id number] [place] expiration date [facility] Blood type code 6200 [facility] Blood type A POSITIVE [facility] Compatibility Not required [facility] Specimen Performing Organization Address [facility] P raine Number [facility] DEPARTMENT OF [address] [place] [address] PATHOLOGY AND GENOMIC MEDICINE [address] * Sequence based typing (01/10/2020 9:37 AM CDT) Interpretation Note: HLA typing was performed [place] by PCR-SSP/SSO and PCR-SBT DNA HOAHAOISM based procedures. HOSPITAL Although unlikely, the following uncommon alleles cannot be ruled out A*02:CCEHN=A*02:01/02:786/02:8 44/02:846/02:864/02:869 B*44:CETNY=B*44:02/44:292/44:3 21/44:457/44:464/44:470/44:477 /44:479 DRB1*01:JZDV=DRB1*01:01/01:100 DRB1*03:RPXT=DRB1*03:01/03:147 DQB1*05:CDHTN=DQB1*05:01/05:44 /05:183/05:193/05:194/05:195/0 5:216/05:230/05:232/05:234/05: 237 DQB1*02:CVBWS=DQB1*02:01/02:47 /02:109/02:112/02:148/02:163N DRB3*02:CRWSZ=DRB3*02:02/02:28 /02:29N/02:30/02:31/02:33/02:3 402:35/02:36/02:39/02:40/02:4 102:43/02:45/02:46/02:47/02:4 9:51/02:52/02:53/02:54/02:5 11/28:59/02:60/02:61Q/02:62/02: 63/02:64/02:65/02:66/02:67N/02 :68/02:69/02:70/02:71/02:72/02 :73/02:74/02:7 09/28:76/02:77/02:79/02:80N/02: 82/02:84/02:85/02:86/02:87/02: 88/02:90/02:91/02:92/02:93/02: 94/02:95N/02:96/02:97/02:98/02 :99/02:101/02:102/02:105/02:10 11/28:108/02:109N/02:110/02:113 /02:114/02:116/02:117/02:118/0 2:120/02:121N/02:122/02:123/02 :124/02:125N/0 2:126/02:127/02:128/02:129/02: 130/02:132/02:133/02:134/02:13 5/02:136/02:137N/02:138/02:139 /02:140/02:142 Common Alleles found in the above strings can only be present when paired with uncommon alleles and therefore are not resolved. [facility] Sequence based See link below for PDF Lab [place] typing Report [facility] Specimen Blood Performing Organization Address City/[facility] Code P raine Number [facility] [place] [place] [address] PATHOLOGY AND GENOMIC MEDICINE [address] * [facility] serology test (01/10/2020 9:37 AM CDT) Blood type O POS [facility] Antibody screen Negative [place] interp ([facility] Hepatitis B Non-Reactive [place] core Ab ([facility] Hepatitis B Non-Reactive [place] surface Ag [facility] Hepatitis C Non-Reactive [facility]) [facility] HIV combined Non-Reactive [facility]) [facility] HTLV combined Non-Reactive [facility]) [facility] FINA HBV ([place] Non-Reactive [facility]) [facility] FINA HIV ([place] Non-Reactive [facility]) [facility] FINA HCV ([place] Non-Reactive [facility]) [facility] FINA West Nile Non-Reactive [place] virus ([facility] RPR screen Non-Reactive [facility] [place] ([place] Non-Reactive [facility]) [facility] CMV screen Positive (A) [facility] Specimen Blood Performing Organization Address City/[facility]/ZIP Code P raine Number [facility] [place] [place] [address] PATHOLOGY AND GENOMIC MEDICINE [address] * Cytomegalovirus Ab, IgM (01/10/2020 9:37 AM CDT) Cytomegalovirus Negative Negative [place] Ab, IgM [facility] Specimen Serum Performing Organization Address City/[facility]/ZIP Code P raine Number [facility] [place] [place] [address] PATHOLOGY AND GENOMIC MEDICINE [address] * Cytomegalovirus Ab, IgG (01/10/2020 9:37 AM CDT) [facility] Cytomegalovirus Positive (A) Negative [place] Ab, IgG Comment: HOAHAOISM Positive; IgG antibody to CMV HOSPITAL detected which may indicate exposure to CMV infection. Specimen Serum Performing Organization Address City/[facility]/ZIP Code P raine Number [facility] DEPARTMENT OF [address] [place] [address] PATHOLOGY AND GENOMIC MEDICINE [address] * Immature platelet fraction (08/22/2019 5:49 AM CDT) Only the most recent of 3 results within the time period is included. [facility] IPF percentage 2.2 1.0 - 5.8 % [facility] Specimen Performing Organization Address City/State/ZIP Code P raine Number [facility] DEPARTMENT OF [address] [place] [address] PATHOLOGY AND GENOMIC MEDICINE [facility] [address] * Manual differential (08/22/2019 5:49 AM CDT) Only the most recent of 3 results within the time period is included. [facility] Manual PERFORMED [place] differential [facility] Neutrophils 31.0 (L)Comment: Corrected 36.0 - 66.0 % SHABNAM STON result; previously reported as HOAHAOISM 33.0 on 08/22/2019 at 06:16 by [facility] Lymphocytes 61.0 (H)Comment: Corrected 24.0 - 44.0 % SHABNAM STON result; previously reported as HOAHAOISM 56.9 on 08/22/2019 at 06:16 by [facility] Monocytes 7.0 (H)Comment: Corrected 0.0 - 6.0 % [facility] result; previously reported as HOAHAOISM 8.4 on 08/22/2019 at 06:16 by [facility] Eosinophils 1.0Comment: Corrected result; 0.0 - 6.0 % [place] previously reported as 0.4 on HOAHAOISM 08/22/2019 at 06:16 by [facility] Basophils 0.0 0.0 - 1.2 % [facility] Metamyelocytes 0 0 - 1 % [facility] Promyelocytes 0 0 - 1 % [facility] Platelet slide Mkd decreased (A) [place] review [facility] Anisocytosis slight [facility] Polychromasia slight [facility] Tear drop cells Occasional [facility] Schistocytes Occasional [facility] Ovalocytes Occasional [facility] Home cells Occasional [facility] Enlarged Occasional [place] platelets [facility] Giant platelets Occasional [facility] Specimen Performing Organization Address City/State/ZIP Code P raine Number [facility] DEPARTMENT OF [facility] [place] [address] PATHOLOGY AND GENOMIC MEDICINE [address] * Basic metabolic panel (08/22/2019 5:49 AM CDT) Sodium 139 135 - 150 mEq/L [facility] Potassium 4.2 3.5 - 5.0 mEq/L [facility] Chloride 104 98 - 112 mEq/L [facility] CO2 20 (L) 24 - 31 mmol/L [facility] Anion gap 15@ANIO 7 - 15 mEq/L [facility] BUN 18 7 - 18 mg/dL [facility] Creatinine 0.70 0.50 - 0.90 mg/dL [facility] Glucose 99 65 - 100 mg/dL [facility] Calcium 9.2 8.8 - 10.2 mg/dL [facility] Specimen Blood Performing Organization Address City/State/ZIP Code P raine Number [facility] DEPARTMENT OF [address] [place] [address] [place] [address] PATHOLOGY AND GENOMIC MEDICINE [address] * CT Bone Marrow Bx W Asp Same Site (08/21/2019 12:33 PM CDT) Specimen Narrative Performed At Performing Radiologist: DORA Yang MD Assistants: None Anesthesia Type: Under supervision of the physician, Karo sed and fentanyl were administered intravenously for moderate sedation. Pu lse oximetry, heart rate, and blood pressure were continuously monitored by a radiology nurse. The physician spent 9 minutes of [id number] sedation time with the patient. Lidocaine 1% was used for local anesthe tic. Pre Procedure Diagnosis: pancytopenia Post Procedure Diagnosis: pancytopenia Procedure: CT-guided bone marrow biopsy Technique: Written and informed consent for the pr ocedure was obtained from the patient. The patient was brought to the CT suite and placed in the prone position. Limited, noncontrast CT of the pelvis w as obtained. An appropriate site on the skin surface was then marked and prepped and draped in usual sterile fashion. 1% lidocaine was used for local anesthesia. Under direct CT guidance, the posterior aspect of the right iliac bone was targeted using a 11 gauge On Control ma rrow biopsy needle. A bone marrow aspiration was attempted, however no as pirate was obtained. The needle was repositioned and aspiration was reattempted, however no further aspirat e obtained. Single core biopsy were then obtained. The sample was given directly to a financial services representative from the hematology department. The needle was then removed and hemostasis was achieved with manual compression. The patient tolerated the procedure wel l. Complications: None Specimens Removed: 0 mL bone marrow aspirate; one core bio psy. Estimated Blood Loss: Less than 1 mL Blood/Blood Products: Administered: None Grafts/Implants: None. Findings: The bones of the pelvis are unremarkabl e. 6 mm sclerotic lesion in the right sacrum, likely a bone island. IMPRESSION: Successful CT-guided bone marrow biopsy of the right posterior ilium. No blood aspirated. Single core biopsy obtained. [id number] Procedure Note Hm Interface, Radiology Results Incoming - 08/21/2019 1:44 PM CDT Performing Radiologist: Krish Yang MD Assistants: None Anesthesia Type: Under supervision of the physician, Versed and fentanyl were administered intravenously for moderate sedation. Pulse oximetry, heart rate, and blood pressure were continuously monitored by a radiology nurse. The physician spent 9 minutes of [id number] sedation time with the patient. Lidocaine 1% was used for local anesthetic. Pre Procedure Diagnosis: pancytopenia Post Procedure Diagnosis: pancytopenia Procedure: CT-guided bone marrow biopsy Technique: Written and informed consent for the procedure was obtained from the patient. The patient was brought to the CT suite and placed in the prone position. Limited, noncontrast CT of the pelvis was obtained. An appropriate site on the skin surface was then marked and prepped and draped in usual sterile fashion. 1% lidocaine was used for local anesthesia. Under direct CT guidance, the posterior aspect of the right iliac bone was targeted using a 11 gauge On Control marrow biopsy needle. A bone marrow aspiration was attempted, however no aspirate was obtained. The needle was repositioned and aspiration was reattempted, however no further aspirate obtained. Single core biopsy were then obtained. The sample was given directly to a financial services representative from the hematology department. The needle was then removed and hemostasis was achieved with manual compression. The patient tolerated the procedure well. Complications: None Specimens Removed: 0 mL bone marrow aspirate; one core biop sy. Estimated Blood Loss: Less than 1 mL Blood/Blood Products: Administered: None Grafts/Implants: None. Findings: The bones of the pelvis are unremarkable. 6 mm sclerotic lesion in the right sacrum, likely a bone island. IMPRESSION: Successful CT-guided bone marrow biopsy of the right posterior ilium. No blood aspirated. Single core biopsy obtained. [id number] Performing Organization Address City/[facility]/ZIP Code P raine Number [facility] [address] [place] [address] * Hepatitis acute panel (08/21/2019 9:42 AM CDT) Hepatitis A IgM Non-reactive Non-reactive [facility] Hepatitis B Non-reactive Non-reactive [place] core IgM [facility] Hepatitis B Non-reactive Non-reactive [place] surface Ag [facility] Hepatitis C Ab Non-reactive Non-reactive [facility] Specimen Serum Performing Organization Address City/State/ZIP Code P raine Number [facility] DEPARTMENT OF [address] [place] [address] PATHOLOGY AND GENOMIC MEDICINE [facility] [address] * US Abdomen Complete (08/21/2019 9:12 AM CDT) Specimen Narrative Performed At EXAM: [facility]: Abn liver function juliette ts (LFTs), pancytopenia eval liver and spleen COMPARISON: NONE. FINDINGS: PANCREAS: The head and body of the pa ncreas are unremarkable. The tail of the is not well seen on the current study . LIVER: The liver demonstrates normal echogenicity without focal mass or intrahepatic biliary ductal dilatation. MPV: Doppler evaluation of the portal vein demonstrates normal hepatopedal flow. CBD: 0.37 cm within normal limits. GALLBLADDER: The gallbladder is witho ut evidence of calculi. The gallbladder wall is not thickened and there is no p ericholecystic fluid. RIGHT KIDNEY: The right kidney is nor mal in size and echogenicity. There is no evidence of mass, calculi, or hydroneph rosis. The right kidney measures 9.39 cm LEFT KIDNEY: The left kidney is norman l in size and echogenicity. There is no evidence of mass, calculi, or hydroneph rosis. The left kidney measures 8.78 cm . SPLEEN: The spleen is homogeneous and not enlarged measuring 9.14 cm AORTA: The visualized upper abdominal aorta demonstrates no evidence of ectasia or aneurysm. IVC: The visualized portions of the i nferior vena cava are unremarkable. IMPRESSION: 1. Normal abdominal ultrasound examin ation. 2. The liver does not demonstrate any m asses. There is no intrahepatic biliary dilatation. 3. The gallbladder, spleen, kidneys and pancreas are unremarkable. [id number] Procedure Note Hm Interface, Radiology Results - 08/21/2019 9:24 AM CDT EXAM: US ABDOMEN COMPLETE CLINICAL DATA: Abn liver function tests (LFTs), pancytopenia eval liver and spleen COMPARISON: NONE. FINDINGS: PANCREAS: The head and body of the pancreas are unremarkable. The tail of the is not well seen on the current study. LIVER: The liver demonstrates normal echogenicity without focal mass or intrahepatic biliary ductal dilatation. MPV: Doppler evaluation of the portal vein demonstrates normal hepatopedal flow. CBD: 0.37 cm within normal limits. GALLBLADDER: The gallbladder is without evidence of calculi. The gallbladder wall is not thickened and there is no pericholecystic fluid. RIGHT KIDNEY: The right kidney is normal in size and echogenicity. There is no evidence of mass, calculi, or hydronephrosis. The right kidney measures 9.39 cm LEFT KIDNEY: The left kidney is normal in size and echogenicity. There is no evidence of mass, calculi, or hydronephrosis. The left kidney measures 8.78 cm . SPLEEN: The spleen is homogeneous and not enlarged measuring 9.14 cm AORTA: The visualized upper abdominal aorta demonstrates no evidence of ectasia or aneurysm. IVC: The visualized portions of the inferior vena cava are unremarkable. IMPRESSION: 1. Normal abdominal ultrasound examinat ion. 2. The liver does not demonstrate any ma sses. There is no intrahepatic biliary dilatation. 3. The gallbladder, spleen, kidneys and pancreas are unremarkable. [id number] Performing Organization Address City/[facility]/[place]IP [place] [address] * Transfuse RBC (08/21/2019 1:56 AM CDT) * Direct Kenan' (DEO) (08/20/2019 7:12 PM CDT) [id number] NEG [place] Polyspecific [facility] Specimen Blood Performing Organization Address City/[facility] Code P raine Number [facility] [place] [address] PATHOLOGY AND [facility] MEDICINE [address] * Haptoglobin (08/20/2019 7:12 PM CDT) Haptoglobin 252 (H) 30 - 200 mg/dL [facility] Specimen Blood Performing Organization Address [facility] P raine Number [facility] [place] [address] PATHOLOGY AND [facility] MEDICINE [address] * Vitamin B12 level (08/20/2019 7:12 PM CDT) Vitamin B12 665 231 - 931 pg/mL [place] Comment: HOAHAOISM Significant overlap exists HOSPITAL between normal and deficiency states. However, most patients with deficiencies will have Serum B12 <200 pg/mL. Specimen Serum Performing Organization Address [facility] P raine Number [facility] [place] [address] PATHOLOGY AND GENOMIC MEDICINE [address] * XR Chest 1 Vw Portable (08/20/2019 6:50 PM CDT) Specimen Narrative Performed At EXAMINATION: XR CHEST 1 VW PORTABLE [facility] CLINICAL HISTORY: 59 years Female S O B COMPARISON: None IMPRESSION: Heart size and pulmonary vasculature ar e normal. No focal infiltrate, pleural effusion or pneumothorax seen. Visualiz ed osseous structures are intact. [id number] Procedure Note Hm Interface, Radiology Results Incoming - 08/20/2019 6:59 PM CDT EXAMINATION: XR CHEST 1 VW PORTABLE CLINICAL HISTORY: 59 years Female S OB COMPARISON: None IMPRESSION: Heart size and pulmonary vasculature are normal. No focal infiltrate, pleural effusion or pneumothorax seen. Visualized osseous structures are intact. [id number] Performing Organization Address City/State/ZIP Code P raine Number [facility] [address] [place] [address] * Transthoracic Echocardiogram Complete, (w Contrast, Strain and 3D if needed) (08/20/2019 6:35 PM CDT) Velocity Ratio 0.71 m/s [facility] (V1/V2) AoV Mean PG 5.52 mmHg [facility] AV LVOT peak 4.89 mmHg [facility] gradient MV valve area p 6.23 cm2 [facility] 1/2 method E/A ratio 1.28 [facility] E wave 121.72 msec [facility] decelartion time LVOT Vmax 1.15 m/s [facility] LVOT VTI 0.22 m [facility] AoV Peak PG 10.10 mmHg [facility] MV Peak E Josh 0.95 m/s [facility] MV stenosis 35.30 ms [facility] pressure 1/2 time MV Peak A Josh 0.74 m/s [facility] BSA 1.51 m2 [facility] AoV Vmax 1.61 m/s [facility] BSA Owusu 1.59 m2 [facility] BSA Haycock 1.56 m2 [facility] TR Vpeak 2.90 mm/s [facility] BMI 26.75 kg/m2 [facility] MV E A ratio 1.28 [facility] TR pk grad 27.71 mmHg [facility] AR Press Half 361.65 ms [facility] Time LA area s A4C 19.34 cm2 [facility] LA Vol MOD A4C 59.43 ml [facility] AoV Vmn 1.11 [facility] AR slope 4.66 [facility] Ar Vmax 5.20 [facility] Glob Peak Long -23.25 % [facility] St A2C Glob Peak Long -20.74 % [facility] St A4C Glob Peak Long -20.99 % [facility] St ApLong Glob Peak Long -21.66 % [facility] St AoV VTI 0.34 m [facility] MV AE ratio 0.78 [facility] LVOT Vmn 0.85 [facility] Pt Size 147.32 [facility] Pt Wt 58.06 [facility] LVOT mean grad 3.13 mmHg [facility] MAX Pred HR 159.39 [facility] 85 of MPHR 135.48 [facility] AR DT 1,115.03 msec [facility] AR pk grad 96.28 mmHg [facility] Calc MPHR 159.39 bpm [facility] MV Decel slope 7.79 m/s2 [facility] Pred Exer Dur 7.84 [facility] R1 Pred METS R1 6.82 [facility] Specimen Narrative Performed At [facility] Left ventricular systolic function i s normal. Left Ventricular ejection fraction i s 55 - 60%. Diastolic dysfunction is indetermina te. Left atrium size is moderately dilat ed. Mild tricuspid valve regurgitation. Mild mitral valve regurgitation. There is pericardial effusion. There is a trivial pericardial effusion localized near the right ventricle. No previous study available for lalo alford. Performing Organization Address City/State/ZIP Code P raine Number [place] [address] [place] [address], * Prepare RBC, 2 Units (08/20/2019 5:50 PM CDT) Product name Red Blood Cells -1, Leukored [facility] N [facility] Unit number [id number] [facility] Product [facility] [id number] [facility] Dispense status Transfused [facility] Blood [id number] [place] expiration date [facility] Blood type code 9500 [facility] Blood type O NEGATIVE [facility] Compatibility Compatible [facility] Product name Red Blood Cells -1, Leukored [facility] N [facility] Unit number [id number] [facility] Product [facility] [id number] [facility] Dispense status Transfused [facility] Blood [id number] [place] expiration date [facility] Blood type [facility] 9500 [facility] Blood type O NEGATIVE [facility] Compatibility Compatible [facility] Specimen Blood Performing Organization Address City/State/ZIP Code P raine Number [facility] DEPARTMENT OF [address] [id number] PATHOLOGY AND GENOMIC MEDICINE [facility] [address] [place] [address] HOSPITAL * Ammonia level (08/20/2019 5:50 PM CDT) Ammonia 18 11 - 51 umol/L [facility] Specimen Blood Performing Organization Address City/State/ZIP Code P raine Number [facility] DEPARTMENT OF [address] [phone] PATHOLOGY AND GENOMIC MEDICINE [facility] [address] [place] [address] HOSPITAL after 04/18/2019 Insurance Type Payer Benefit Subscriber ID Effective Phone Address Plan / Dates Group Exchange BCBS EXCHANGE BLUE [id number] 2018-P ADVANTAGE resent HMO EXCH Timothy Mathews Meg BMT Self 1960 [phone] Transplant (Home) [place] [address] Lurdes Mathewsdeisi Weaver National Self [phone] [place] (Home) [place] [id number] Donor Program Advance Directives For more information, please contact: [phone] Patient Msw Explanation Type Date Recorded Advance Directives, Living Will and Medical Power of Paint Preparer Advance Directives, 08/21/2019 11:02 AM Living Will and Medical Power of Paint Preparer
--- OUTSIDE RECORDS SUMMARY | 2020-04-19 09:59 | XMS REPORT | Clinical Summary ---
Author [facility] Address Unknown Phone Unavailable Care Team Providers Care [employer] Name Role Phone System, Provider Not In PCP Unavailable Allergies Comments Active Allergy Reactions Severity Noted Date Latex Rash, High 08/20/2019 Dermatitis Medications End Date Status Medication Sig Dispensed Refills Start Date Active ascorbic acid, vitamin C, Take 1,000 mg 0 (VITAMIN C) 1000 MG by mouth tablet daily. Active b complex vitamins tablet Take 1 tablet 0 by mouth daily. Active cyanocobalamin, vitamin Take 800 mcg 0 B-12, (VITAMIN B-12 ORAL) by mouth daily. Active multivitamin per tablet Take 1 tablet 0 by mouth daily. Active omeprazole (PRILOSEC) 20 Take by mouth 0 MG capsuleIndications: daily. unknown dose Active polycarbophil (FIBERCON) Take 625 mg 0 625 mg tablet by mouth daily. 11/07/2020 Active calcium carbonate-vitamin Take 1 tablet 30 tablet 11 D3 (OSCAL-D) 500 by mouth 0 mg(1,250mg) -200 unit per daily. tablet Active valACYclovir (VALTREX) Take 1 tablet 30 tablet 1 0 500 MG tablet (500 mg 0 total) by mouth daily. 01/27/2021 Active zinc sulfate (ZINCATE) Take 1 30 capsule 2 220 (50) mg capsule capsule (220 0 mg total) by mouth daily. Active vitamin E 1000 UNIT Take 1,000 0 capsule Units by mouth daily. 04/20/2020 Active voriconazole (VFEND) 50 Take 6 60 tablet 11 MG tablet tablets (300 0 mg total) by mouth 2 (two) times daily for 7 days. 04/14/2021 Active fluticasone propionate 1 spray by 9.9 mL 0 (FLONASE) 50 Nasal route 0 mcg/actuation nasal spray daily. 09/19/2019 Discontinued (Med History: P atient reports therapy complete) sulfamethoxazole-trimetho Last dose due 0 07/29 prim (BACTRIM DS) 800-160 Saturday 09/16. 0 mg per tablet 11/07/2019 Discontinued (Stop Taking at Discharge) ciprofloxacin HCl (CIPRO) 2 (two) times 0 07/29 500 MG tablet daily . 0 11/07/2019 Discontinued (Stop Taking at Discharge) calcium carbonate Take 600 mg 0 (OS-BINH) 600 mg calcium by mouth 2 (1,500 mg) Tab (two) times daily with breakfast and dinner. 01/23/2020 Discontinued (Error) CARICA PAPAYA ORAL Take by 0 mouth. 09/19/2019 Discontinued (Duplicate Ther apy) ciprofloxacin HCl (CIPRO) Take 500 mg 0 07/29 500 MG tablet by mouth. 0 09/19/2019 Discontinued (Duplicate Ther apy) sulfamethoxazole-trimetho Take 1 tablet 0 07/29 prim (BACTRIM DS) 800-160 by mouth. 0 mg per tablet 11/29/2019 Discontinued (Stop Taking at Discharge) fluconazole (DIFLUCAN) Take 1 tablet 30 tablet 0 0 200 MG tablet (200 mg 0 total) by mouth daily for 30 days. 12/08/2019 levoFLOXacin (LEVAQUIN) Take 1 tablet 30 tablet 0 500 MG tablet (500 mg 0 total) by mouth daily for 30 days. 11/29/2019 Discontinued (Stop Taking at Discharge) valACYclovir (VALTREX) Take 1 tablet 60 tablet 0 0 500 MG tablet (500 mg 0 total) by mouth every 12 (twelve) hours for 30 days. 12/13/2019 amoxicillin-clavulanate Take 1 tablet 28 tablet 0 (AUGMENTIN) 875-125 mg by mouth 0 per tablet every 12 (twelve) hours for 14 days. 12/22/2019 Discontinued (Reorder) voriconazole (VFEND) 200 Take 1 tablet 176 tablet 0 MG tablet (200 mg 0 total) by mouth 2 (two) times daily for 88 days. 02/27/2020 Discontinued voriconazole (VFEND) 200 Take 1 tablet 176 tablet 0 MG tablet (200 mg 0 total) by mouth 2 (two) times daily for 66 days. 01/14/2020 levoFLOXacin (LEVAQUIN) Take 1 tablet 10 tablet 0 500 MG tablet (500 mg 0 total) by mouth daily for 10 days. 04/13/2020 Discontinued (Stop Taking at Discharge) voriconazole (VFEND) 200 Take 1 tablet 0 02/26 MG tablet (200 mg 0 total) by mouth 2 (two) times daily for 66 days. Status Hospital, Clinic, or Ordered Dose Route Frequency Start End Date Other Facility Date Administered Medication Ended sodium chloride 0.9% (NS) IV Once 12/28/19 infusion 20 0 Discontinued diphenhydrAMINE 25 mg IV Once 12/28/19 02 (BENADRYL) injection 25 20 0 mg Discontinued acetaminophen (TYLENOL) 650 mg Oral Once 12/28/19 tablet 650 mg 20 0 Ended sodium chloride 0.9% (NS) IV Once 03/06/20 infusion 20 0 Ended diphenhydrAMINE 25 mg IV Once 03/06/20 02 (BENADRYL) injection 25 20 0 mg Ended acetaminophen (TYLENOL) 650 mg Oral Once 03/06/20 tablet 650 mg 20 0 Ended furosemide (LASIX) 10 mg IV Once as needed 03/06/20 injection 10 mg 20 0 Active Problems Problem Noted Date Fever 04/03/2020 Severe sepsis 04/03/2020 Fever in other diseases 03/08/2020 Thrombocytopenia 02/05/2020 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 Sepsis 12/29/2019 Neutropenic fever 12/29/2019 Cellulitis, leg 11/20/2019 AML (acute myeloblastic leukemia) 11/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 Anemia 11/15/2019 Generalized weakness 11/10/2019 Chemotherapy-induced thrombocytopenia 11/10/2019 Neutropenia 09/22/2019 Chemotherapy follow-up examination 09/22/2019 Myelodysplastic syndrome, high grade 09/19/2019 MDS (myelodysplastic syndrome), high grade 0 Encounters Care Team Description Date Type Specialty Kristofer Arias MD 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); Thrombocytopenia (HCC) 04/18/2020 Emergency Emergency Medicine 04/18/2020 Travel 04/05/2020 Orders Only General Internal Me dicine 04/05/2020 Travel Sasha Henry MD Kazim, Deepa Dejesus MD Septic shock (HCC) (Primary Dx); Neutropenic fever (HCC); Acute myeloid leukemia in remission (HCC) 04/03/2020 Hospital Oncology - Encounter 04/13/2020 Param Benitez MD Hasan, Syed Ali Reza, MD Massumi, Bonny Thomas MD Fever in other diseases (Primary Dx); Leukopenia, unspecified type; Bilious vomiting with nausea 03/08/2020 Hospital Oncology - Encounter 03/12/2020 03/08/2020 Caitlyn Ireland MD Anemia with low platelet count (HCC) (Pr imary Dx) 03/06/2020 Infusion Oncology Caitlyn Rivas MD Canceled (Hospitalized) 03/05/2020 Infusion Oncology Josefina Messer MD Thrombocytopenia (HCC) (Primary Dx); Anemia, unspecified type; Neutropenia, unspecified type (HCC); Acute myeloid leukemia in remission (HCC) 03/04/2020 Emergency Emergency Medicine 03/04/2020 Alysa Mccabe MD Tran, Tuan Quoc, MD 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) 02/22/2020 Hospital Oncology - Encounter 02/27/2020 02/22/2020 Travel Caitlyn Rivas MD 02/22/2020 Orders Only Oncology 02/06/2020 Orders Only General Internal Nd Nakita Gambino DO Neason, Chau Le, MD Giveon, Ron, MD Thrombocytopenia (HCC) (Primary Dx) 02/05/2020 Hospital Oncology - Encounter 02/08/2020 02/05/2020 Mitch Calhoun MD 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) 01/23/2020 Hospital Oncology - Encounter 01/28/2020 01/23/2020 Caitlyn Ireland MD 01/23/2020 Orders Only Oncology Caitlyn Rivas MD 01/22/2020 Orders Only Oncology Caitlyn Rivas MD Localized swelling, mass and lump, unspe cified (Primary Dx) 01/15/2020 Outside Orders Central Scheduling Param Benitez MD Yoon, Alyssa Hyunna, MD Daniel, Jamuna V., MD Fever and chills (Primary Dx); Myalgia; Leukopenia, unspecified type; Pancytopenia (HCC) 12/29/2019 Hospital Oncology - Encounter 01/04/2020 12/29/2019 Travel Caitlyn Rivas MD 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) 12/28/2019 Infusion Oncology Caitlyn Rivas MD Acute myeloid leukemia not having achiev ed remission (HCC) 12/27/2019 Infusion Oncology Alysa Bliss MD Massumi, Mahsa Abolfathian, MD 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) 12/17/2019 Hospital Oncology - Encounter 12/22/2019 12/17/2019 Travel Alysa Bliss MD 12/17/2019 Orders Only Internal Medicine Caitlyn Rivas MD 12/17/2019 Orders Only Oncology 11/21/2019 Travel Zeke Sena MD 11/20/2019 Hospital Oncology - Encounter 11/29/2019 Zeke Sena MD 11/20/2019 Orders Only Internal Medicine Deepa Burnett MD 11/15/2019 Hospital General Internal Me dicine - Encounter 11/16/2019 Haylie Aguiar MD Massumi, Mahsa Abolfathian, MD Generalized weakness (Primary Dx) 11/10/2019 Emergency Emergency Medicine 11/10/2019 Orders Only General Internal Me Alysa Crockett MD 10/02/2019 Telephone Emergency Medicine Alysa Bliss MD 09/26/2019 Telephone Emergency Medicine Alysa Bliss MD Neason, Chau Le, MD MDS (myelodysplastic syndrome), high gra de (HCC) (Primary Dx); Myelodysplastic syndrome, high grade (HCC); Dry eye syndrome of both eyes; Retinal hemorrhage of right eye; Chemotherapy follow-up examination 09/19/2019 Hospital Oncology - Encounter 11/07/2019 09/19/2019 Travel Alysa Bliss MD 09/19/2019 Orders Only Internal Medicine Caitlyn Rivas MD Myelodysplastic syndrome, high grade (HC C) 09/19/2019 Orders Only Oncology Saulo Soto MD Thrombocytopenia (HCC) (Primary Dx) 09/14/2019 Emergency Emergency Medicine 09/14/2019 Orders Only General Internal Me dicine 09/14/2019 Travel Mario Cruz MD Anemia, unspecified type (Primary Dx); Thrombocytopenia (HCC) 09/07/2019 Emergency Emergency Medicine - 09/08/2019 09/07/2019 Travel after 04/18/2019 Social History Date Tobacco Use Types Packs/Day Years Used Never Smoker Smokeless Tobacco: Never Used Drinks/Week oz/Week Comments Alcohol Use No Alcohol Habits Answer Date Recorded How often do you have a drink containing alcohol? Never 09/14/2019 How many drinks containing alcohol do you have on No t asked a typical day when you are drinking? How often do you have six or more drinks on one Not asked occasion? Sex Assigned at Date Recorded Not on file Date Recorded COVID-19 Exposure Response 04/18/2020 12:11 PM [employer] In the last month, have you been in contact with No / Unsure someone who was confirmed or suspected to have Coronavirus / COVID-19? Last Filed Vital Signs Reading Time Taken Comments Vital Sign 127/82 04/18/2020 7:58 PM [employer] Blood Pressure 96 04/18/2020 7:58 PM [employer] Pulse 37.2 C (98.9 F) 04/18/2020 7:58 PM [employer] Temperature 16 04/18/2020 7:58 PM [employer] Respiratory Rate 100% 04/18/2020 7:58 PM [employer] Oxygen Saturation 99% 09/14/2019 3:52 PM CDT Inhaled Oxygen Concentration 64 kg (141 lb) 04/18/2020 12:18 PM [employer] Weight 152.4 cm (5') 04/18/2020 12:18 PM [employer] Height 27.54 04/18/2020 12:18 PM [employer] Body Mass Index Plan of Treatment Health Maintenance Due Date Last Done Comments BREAST CANCER SCREENING 1960 COLON CANCER SCREENING 1960 COLONOSCOPY PNEUMOCOCCAL VACCINE 0-64 1965 YRS (1 of 3 - PCV13) CERVICAL CANCER SCREENING 01/10/1980 PAP ONLY (Age 21-65) LIPID PANEL 01/10/2004 INFLUENZA VACCINE (#1) 2020 Procedures Comments Procedure Name Priority Date/Time Associated Diag nosis TRANSFUSE LEUKO-REDUCED Routine 04/18/2020 AND IRRADIATED PLATELETS 7:00 PM [employer] TRANSFUSE LEUKO-REDUCED Routine 04/18/2020 AND IRRADIATED PLATELETS 6:05 PM [employer] PREPARE LEUKO-REDUCED AND Routine 04/18/2020 IRRADIATED PLATELETS 4:43 PM [employer] (CELLAVISION MANUAL DIFF) STAT 04/18/2020 2:49 PM [employer] CBC W/PLT COUNT & AUTO STAT 04/18/2020 DIFFERENTIAL 2:49 PM [employer] TYPE AND SCREEN, STAT 04/18/2020 AUTOMATED 2:49 PM [employer] BASIC METABOLIC PANEL (7) STAT 04/18/2020 2:49 PM [employer] PT/APTT STAT 04/18/2020 2:49 PM [employer] CBC W/PLT COUNT & AUTO STAT 04/18/2020 DIFFERENTIAL 2:49 PM [employer] CBC W/PLT COUNT & AUTO Routine 04/13/2020 DIFFERENTIAL 5:22 AM [employer] COMPREHENSIVE METABOLIC Routine 04/13/2020 Acute myeloid leukemia in PANEL 5:22 AM [employer] remission (HCC) CBC W/PLT COUNT & AUTO Routine 04/13/2020 DIFFERENTIAL 5:22 AM [employer] CBC W/PLT COUNT & AUTO Routine 04/12/2020 DIFFERENTIAL 4:25 AM [employer] COMPREHENSIVE METABOLIC Routine 04/12/2020 Acute myeloid leukemia in PANEL 4:25 AM [employer] remission (HCC) CBC W/PLT COUNT & AUTO Routine 04/12/2020 DIFFERENTIAL 4:25 AM [employer] SARS-COV2/RT-PCR ([facility] & Routine 04/11/2020 REF LABS) 3:14 PM [employer] CBC W/PLT COUNT & AUTO Routine 04/11/2020 DIFFERENTIAL 4:48 AM [employer] COMPREHENSIVE METABOLIC Routine 04/11/2020 Acute myeloid leukemia in PANEL 4:48 AM [employer] remission (HCC) CBC W/PLT COUNT & AUTO Routine 04/11/2020 DIFFERENTIAL 4:48 AM [employer] CBC W/PLT COUNT & AUTO Routine 04/10/2020 DIFFERENTIAL 4:12 AM [employer] COMPREHENSIVE METABOLIC Routine 04/10/2020 Acute myeloid leukemia in PANEL 4:12 AM [employer] remission (HCC) CBC W/PLT COUNT & AUTO Routine 04/10/2020 DIFFERENTIAL 4:12 AM [employer] CBC W/PLT COUNT & AUTO Routine 04/09/2020 DIFFERENTIAL 4:55 AM [employer] COMPREHENSIVE METABOLIC Routine 04/09/2020 Acute myeloid leukemia in PANEL 4:55 AM [employer] remission (HCC) CBC W/PLT COUNT & AUTO Routine 04/09/2020 DIFFERENTIAL 4:55 AM [employer] CBC W/PLT COUNT & AUTO Routine 04/08/2020 DIFFERENTIAL 4:41 AM [employer] COMPREHENSIVE METABOLIC Routine 04/08/2020 Acute myeloid leukemia in PANEL 4:41 AM [employer] remission (HCC) CBC W/PLT COUNT & AUTO Routine 04/08/2020 DIFFERENTIAL 4:41 AM [employer] CATHETER TIP CULTURE Routine 04/07/2020 11:31 AM [employer] CMV PCR, QUANTITATIVE Routine 04/07/2020 5:38 AM [employer] (CELLAVISION MANUAL DIFF) Routine 04/07/2020 5:29 AM [employer] CBC W/PLT COUNT & AUTO Routine 04/07/2020 DIFFERENTIAL 5:29 AM [employer] BASIC METABOLIC PANEL (7) Routine 04/07/2020 5:29 AM [employer] CBC W/PLT COUNT & AUTO Routine 04/07/2020 DIFFERENTIAL 5:29 AM [employer] LACTIC ACID, VENOUS STAT 04/06/2020 1:04 PM [employer] (CELLAVISION MANUAL DIFF) Routine 04/06/2020 4:38 AM [employer] CBC W/PLT COUNT & AUTO Routine 04/06/2020 DIFFERENTIAL 4:38 AM [employer] CBC W/PLT COUNT & AUTO Routine 04/06/2020 DIFFERENTIAL 4:38 AM [employer] BASIC METABOLIC PANEL (7) Routine 04/06/2020 4:38 AM [employer] ECG 12-LEAD Routine 04/05/2020 11:08 PM [employer] Procedure Note - Interface, External Ris In - 04/06/2020 6:56 AM [employer] Ventricula r Rate 124 BPM Atrial Rate 124 BPM P-R Interval 154 ms QRS Duration 68 ms Q-T Interval 288 ms QTC Calculatio n(Bazett) 413 ms P Tor[place] 44 degrees R Torreon 28 degrees T [place] 66 degrees Sinus tachycardi a Otherwise normal ECG When compared with ECG of 0 20:34, No significan t change was found ECG 12-LEAD Routine 04/05/2020 11:08 PM [employer] BASIC METABOLIC PANEL (7) STAT 04/05/2020 10:07 PM [employer] POCT-GLUCOSE Routine 04/05/2020 9:59 PM [employer] POCT-CALCIUM IONIZED Routine 04/05/2020 9:59 PM [employer] POCT-HEMATOCRIT Routine 04/05/2020 9:59 PM [employer] POCT-HEMOGLOBIN Routine 04/05/2020 9:59 PM [employer] POCT-POTASSIUM Routine 04/05/2020 9:59 PM [employer] POCT-SODIUM Routine 04/05/2020 9:59 PM [employer] POCT-BLOOD GASES, Routine 04/05/2020 ARTERIAL 9:59 PM [employer] LACTIC ACID, ARTERIAL STAT 04/05/2020 9:59 PM [employer] BLOOD CULTURE Routine 04/05/2020 9:55 PM [employer] BLOOD CULTURE Routine 04/05/2020 9:53 PM [employer] XR CHEST 1 VIEW STAT 04/05/2020 PORTABLE/BEDSIDE 9:36 PM [employer] CBC W/PLT COUNT & AUTO Routine 04/05/2020 DIFFERENTIAL 4:53 AM [employer] CBC W/PLT COUNT & AUTO Routine 04/05/2020 DIFFERENTIAL 4:53 AM [employer] BASIC METABOLIC PANEL (7) Routine 04/05/2020 4:[address] CT SINUS WITH IV CONTRAST Routine 04/04/2020 9:25 PM [employer] BLOOD CULTURE BERNICE 04/04/2020 9:07 PM [employer] SARS-COV2/RT-PCR ([facility] & Routine 04/04/2020 REF LABS) 3:15 PM [employer] (CELLAVISION MANUAL DIFF) Routine 04/04/2020 6:25 AM [employer] CBC W/PLT COUNT & AUTO Routine 04/04/2020 DIFFERENTIAL 6:25 AM [employer] CBC W/PLT COUNT & AUTO Routine 04/04/2020 DIFFERENTIAL 6:25 AM [employer] BASIC METABOLIC PANEL (7) Routine 04/04/2020 6:25 AM [employer] LACTIC ACID, VENOUS STAT 04/04/2020 6:25 AM [employer] BLOOD CULTURE STAT 04/03/2020 9:48 PM [employer] URINALYSIS W/ REFLEX STAT 04/03/2020 URINE CULTURE 8:10 PM [employer] BLOOD CULTURE STAT 04/03/2020 8:01 PM [employer] CBC W/PLT COUNT & AUTO STAT 04/03/2020 DIFFERENTIAL 8:00 PM [employer] LACTIC ACID, VENOUS STAT 04/03/2020 8:00 PM [employer] COMPREHENSIVE METABOLIC STAT 04/03/2020 PANEL 8:00 PM [employer] CBC W/PLT COUNT & AUTO STAT 04/03/2020 DIFFERENTIAL 8:00 PM [employer] XR CHEST 2 VIEWS STAT 04/03/2020 5:39 PM [employer] PREPARE LEUKO-REDUCED AND Routine 03/12/2020 IRRADIATED PLATELETS 11:54 PM CDT (CELLAVISION MANUAL DIFF) Routine 03/12/2020 5:05 AM CDT CBC W/PLT COUNT & AUTO Routine 03/12/2020 DIFFERENTIAL 5:05 AM CDT BASIC METABOLIC PANEL (7) Routine 03/12/2020 5:05 AM CDT CBC W/PLT COUNT & AUTO Routine 03/12/2020 DIFFERENTIAL 5:05 AM CDT VORICONAZOLE LEVEL Routine 03/12/2020 5:04 AM CDT TRANSFUSE LEUKO-REDUCED Routine 03/11/2020 AND IRRADIATED PLATELETS 1:37 PM CDT (CELLAVISION MANUAL DIFF) Routine 03/11/2020 5:35 AM CDT CBC W/PLT COUNT & AUTO Routine 03/11/2020 DIFFERENTIAL 5:35 AM CDT BASIC METABOLIC PANEL (7) Routine 03/11/2020 5:35 AM CDT CBC W/PLT COUNT & AUTO Routine 03/11/2020 DIFFERENTIAL 5:35 AM CDT PREPARE RBC STAT 03/10/2020 11:54 PM CDT VANCOMYCIN LEVEL, TROUGH Timed 03/10/2020 9:08 PM CDT (CELLAVISION MANUAL DIFF) Routine 03/10/2020 4:38 AM CDT CBC W/PLT COUNT & AUTO Routine 03/10/2020 DIFFERENTIAL 4:38 AM CDT BASIC METABOLIC PANEL (7) Routine 03/10/2020 4:38 AM CDT CBC W/PLT COUNT & AUTO Routine 03/10/2020 DIFFERENTIAL 4:38 AM CDT ASPERGILLUS GALACTOMANNAN Routine 03/10/2020 ANTIGEN 4:37 AM CDT MISCELLANEOUS LAB ORDER Routine 03/10/2020 4:[address] MAXILLOFACIAL WITH IV Routine 03/10/2020 CONTRAST 3:12 AM CDT FUNGUS CULTURE, BLOOD Routine 03/09/2020 (ISOLATOR) 1:18 PM CDT (CELLAVISION MANUAL DIFF) Routine 03/09/2020 6:51 AM CDT CBC W/PLT COUNT & AUTO Routine 03/09/2020 DIFFERENTIAL 6:51 AM CDT CBC W/PLT COUNT & AUTO Routine 03/09/2020 DIFFERENTIAL 6:51 AM CDT PROTHROMBIN TIME/INR Routine 03/09/2020 6:51 AM CDT PHOSPHORUS Routine 03/09/2020 6:51 AM CDT MAGNESIUM Routine 03/09/2020 6:51 AM CDT HEPATIC FUNCTION PANEL Routine 03/09/2020 6:51 AM CDT BASIC METABOLIC PANEL (7) Routine 03/09/2020 6:51 AM CDT TRANSFUSE LEUKO-REDUCED Routine 03/09/2020 RED BLOOD CELLS 2:[address] ABDOMEN/PELVIS WITH IV STAT 03/08/2020 CONTRAST 9:40 PM CDT URINALYSIS W/ REFLEX Routine 03/08/2020 URINE CULTURE 9:11 PM CDT XR CHEST 1 VIEW STAT 03/08/2020 PORTABLE/BEDSIDE 7:20 PM CDT PREPARE RBC STAT 03/08/2020 5:10 PM CDT (CELLAVISION MANUAL DIFF) STAT 03/08/2020 3:55 PM CDT CBC W/PLT COUNT & AUTO STAT 03/08/2020 DIFFERENTIAL 3:55 PM CDT TYPE AND SCREEN, STAT 03/08/2020 AUTOMATED 3:55 PM CDT LIPASE Add-On 03/08/2020 3:55 PM CDT CREATINE KINASE (CK) STAT 03/08/2020 3:55 PM CDT LACTIC ACID, VENOUS STAT 03/08/2020 3:55 PM CDT COMPREHENSIVE METABOLIC STAT 03/08/2020 PANEL 3:55 PM CDT CBC W/PLT COUNT & AUTO STAT 03/08/2020 DIFFERENTIAL 3:55 PM CDT PT/APTT STAT 03/08/2020 3:55 PM CDT PHOSPHORUS STAT 03/08/2020 3:55 PM CDT MAGNESIUM STAT 03/08/2020 3:55 PM CDT BLOOD CULTURE Routine 03/08/2020 IDENTIFICATION PANEL 3:54 PM CDT BLOOD CULTURE STAT 03/08/2020 3:54 PM CDT BLOOD CULTURE STAT 03/08/2020 3:54 PM CDT CRITICAL CARE Routine 03/08/2020 3:32 PM CDT PREPARE LEUKO-REDUCED Routine 03/07/2020 Anemia w ith low platelet PLATELETS 11:54 PM CDT count (HCC) TRANSFUSION SERVICE 03/06/2020 REPORT - SCAN 6:05 PM CDT (CELLAVISION MANUAL DIFF) Routine 03/06/2020 1:17 PM CDT CBC W/PLT COUNT & AUTO Routine 03/06/2020 DIFFERENTIAL 1:17 PM CDT CBC W/PLT COUNT & AUTO Routine 03/06/2020 DIFFERENTIAL 1:17 PM CDT TRANSFUSE LEUKO-REDUCED Routine 03/06/2020 Anemia with low platelet AND IRRADIATED PLATELETS 12:27 PM CDT count (HCC) PREPARE LEUKO-REDUCED AND Routine 03/05/2020 IRRADIATED PLATELETS 11:54 PM CDT TRANSFUSION SERVICE 03/05/2020 REPORT - SCAN 6:04 PM CDT PREPARE RBC STAT 03/04/2020 5:51 PM CDT (CELLAVISION MANUAL DIFF) STAT 03/04/2020 5:08 PM CDT CBC W/PLT COUNT & AUTO STAT 03/04/2020 DIFFERENTIAL 5:08 PM CDT CBC W/PLT COUNT & AUTO STAT 03/04/2020 DIFFERENTIAL 5:08 PM CDT TRANSFUSE LEUKO-REDUCED Routine 03/04/2020 AND IRRADIATED PLATELETS 4:06 PM CDT (MANUAL DIFFERENTIAL) Routine 03/04/2020 12:28 PM CDT CBC W/PLT COUNT & AUTO STAT 03/04/2020 DIFFERENTIAL 12:28 PM CDT TYPE AND SCREEN, STAT 03/04/2020 AUTOMATED 12:28 PM CDT COMPREHENSIVE METABOLIC STAT 03/04/2020 PANEL 12:28 PM CDT CBC W/PLT COUNT & AUTO STAT 03/04/2020 DIFFERENTIAL 12:28 PM CDT (MANUAL DIFFERENTIAL) Routine 02/27/2020 4:58 AM CDT CBC W/PLT COUNT & AUTO Routine 02/27/2020 DIFFERENTIAL 4:58 AM CDT CBC W/PLT COUNT & AUTO Routine 02/27/2020 DIFFERENTIAL 4:58 AM CDT MAGNESIUM Routine 02/27/2020 4:58 AM CDT BASIC METABOLIC PANEL (7) Routine 02/27/2020 4:58 AM CDT CBC W/PLT COUNT & AUTO Routine 02/26/2020 DIFFERENTIAL 3:58 AM CDT HEPATIC FUNCTION PANEL Add-On 02/26/2020 3:58 AM CDT TSH/FREE T4 IF INDICATED Routine 02/26/2020 3:58 AM CDT CBC W/PLT COUNT & AUTO Routine 02/26/2020 DIFFERENTIAL 3:58 AM CDT MAGNESIUM Routine 02/26/2020 3:58 AM CDT BASIC METABOLIC PANEL (7) Routine 02/26/2020 3:58 AM CDT (CELLAVISION MANUAL DIFF) Routine 02/25/2020 3:53 AM CDT CBC W/PLT COUNT & AUTO Routine 02/25/2020 DIFFERENTIAL 3:53 AM CDT URIC ACID Routine 02/25/2020 3:53 AM CDT CBC W/PLT COUNT & AUTO Routine 02/25/2020 DIFFERENTIAL 3:53 AM CDT PHOSPHORUS Routine 02/25/2020 3:53 AM CDT MAGNESIUM Routine 02/25/2020 3:53 AM CDT BASIC METABOLIC PANEL (7) Routine 02/25/2020 3:53 AM CDT CBC W/PLT COUNT & AUTO Routine 02/24/2020 DIFFERENTIAL 4:11 AM CDT URIC ACID Routine 02/24/2020 4:11 AM CDT CBC W/PLT COUNT & AUTO Routine 02/24/2020 DIFFERENTIAL 4:11 AM CDT PHOSPHORUS Routine 02/24/2020 4:11 AM CDT MAGNESIUM Routine 02/24/2020 4:11 AM CDT BASIC METABOLIC PANEL (7) Routine 02/24/2020 4:11 AM CDT (CELLAVISION MANUAL DIFF) Routine 02/23/2020 6:06 AM CDT CBC W/PLT COUNT & AUTO Routine 02/23/2020 DIFFERENTIAL 6:06 AM CDT URIC ACID Routine 02/23/2020 6:06 AM CDT CBC W/PLT COUNT & AUTO Routine 02/23/2020 DIFFERENTIAL 6:06 AM CDT PHOSPHORUS Routine 02/23/2020 6:06 AM CDT MAGNESIUM Routine 02/23/2020 6:06 AM CDT BASIC METABOLIC PANEL (7) Routine 02/23/2020 6:06 AM CDT CBC W/PLT COUNT & AUTO Routine 02/22/2020 DIFFERENTIAL 3:50 PM CDT MAGNESIUM Add-On 02/22/2020 3:50 PM CDT CBC W/PLT COUNT & AUTO Routine 02/22/2020 DIFFERENTIAL 3:50 PM CDT HEPATIC FUNCTION PANEL Routine 02/22/2020 3:50 PM CDT BASIC METABOLIC PANEL (7) Routine 02/22/2020 3:50 PM CDT TRANSFUSION SERVICE 02/08/2020 REPORT - SCAN 6:01 PM CDT (CELLAVISION MANUAL DIFF) Routine 02/08/2020 5:01 AM CDT CBC W/PLT COUNT & AUTO Routine 02/08/2020 DIFFERENTIAL 5:01 AM CDT MAGNESIUM Routine 02/08/2020 5:01 AM CDT BASIC METABOLIC PANEL (7) Routine 02/08/2020 5:01 AM CDT CBC W/PLT COUNT & AUTO Routine 02/08/2020 DIFFERENTIAL 5:01 AM CDT PREPARE LEUKO-REDUCED AND Routine 02/07/2020 IRRADIATED RBC 11:54 PM CDT TRANSFUSION SERVICE 02/07/2020 REPORT - SCAN 6:01 PM CDT VANCOMYCIN LEVEL, TROUGH Timed 02/07/2020 7:52 AM CDT (MANUAL DIFFERENTIAL) Routine 02/07/2020 4:36 AM CDT CBC W/PLT COUNT & AUTO Routine 02/07/2020 DIFFERENTIAL 4:36 AM CDT MAGNESIUM Routine 02/07/2020 4:36 AM CDT BASIC METABOLIC PANEL (7) Routine 02/07/2020 4:36 AM CDT CBC W/PLT COUNT & AUTO Routine 02/07/2020 DIFFERENTIAL 4:36 AM CDT PREPARE LEUKO-REDUCED Routine 02/06/2020 PLATELETS 11:54 PM CDT ECG 12-LEAD Routine 02/06/2020 8:34 PM CDT Procedure Note - Interface, External Ris In - 02/07/2020 3:46 PM CDT Ventricula r Rate 101 BPM Atrial Rate 101 BPM P-R Interval 172 ms QRS Duration 66 ms Q-T Interval 336 ms QTC Calculatio n(Bazett) 435 ms P [place] 60 degrees R [place] 52 degrees T [place] 58 degrees Sinus tachycardi a Possible Left atrial enlargemen t Borderline ECG When compared with ECG of 0 14:27, Vent. rate has increased BY 40 BPM ECG 12-LEAD STAT 02/06/2020 8:34 PM CDT TRANSFUSION SERVICE 02/06/2020 REPORT - SCAN 6:01 PM CDT TRANSFUSE LEUKO-REDUCED Routine 02/06/2020 AND IRRADIATED RED BLOOD 1:33 PM CDT CELLS URINALYSIS W/ REFLEX Routine 02/06/2020 URINE CULTURE 5:41 AM CDT (CELLAVISION MANUAL DIFF) Routine 02/06/2020 4:19 AM CDT CBC W/PLT COUNT & AUTO Routine 02/06/2020 DIFFERENTIAL 4:19 AM CDT MAGNESIUM Routine 02/06/2020 4:19 AM CDT BASIC METABOLIC PANEL (7) Routine 02/06/2020 4:19 AM CDT CBC W/PLT COUNT & AUTO Routine 02/06/2020 DIFFERENTIAL 4:19 AM CDT TRANSFUSE LEUKO-REDUCED STAT 02/05/2020 AND IRRADIATED PLATELETS 10:30 PM CDT TRANSFUSE LEUKO-REDUCED STAT 02/05/2020 AND IRRADIATED PLATELETS 9:[address] MAXILLOFACIAL WITH IV STAT 02/05/2020 CONTRAST 7:58 PM CDT LACTIC ACID, VENOUS STAT 02/05/2020 6:33 PM CDT TYPE AND SCREEN, Routine 02/05/2020 AUTOMATED 6:20 PM CDT BASIC METABOLIC PANEL (7) STAT 02/05/2020 6:20 PM CDT BLOOD CULTURE STAT 02/05/2020 6:20 PM CDT BLOOD CULTURE STAT 02/05/2020 6:20 PM CDT CRITICAL CARE Routine 02/05/2020 4:20 PM CDT XR CHEST 1 VIEW STAT 02/05/2020 PORTABLE/BEDSIDE 4:18 PM CDT PROTHROMBIN TIME/INR STAT 02/05/2020 3:28 PM CDT (CELLAVISION MANUAL DIFF) BERNICE 02/05/2020 3:27 PM CDT CBC W/PLT COUNT & AUTO STAT 02/05/2020 DIFFERENTIAL 3:27 PM CDT CBC W/PLT COUNT & AUTO STAT 02/05/2020 DIFFERENTIAL 3:27 PM CDT (CELLAVISION MANUAL DIFF) Routine 01/28/2020 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) CBC W/PLT COUNT & AUTO Routine 01/28/2020 Acute m yeloid leukemia in DIFFERENTIAL 4:54 AM CDT remission (HCC) COMPREHENSIVE METABOLIC Routine 01/28/2020 Acute myeloid leukemia in PANEL 4:54 AM CDT remission (HCC) CBC W/PLT COUNT & AUTO Routine 01/28/2020 Acute m yeloid leukemia in DIFFERENTIAL 4:54 AM CDT remission (HCC) CBC W/PLT COUNT & AUTO Routine 01/27/2020 Acute m yeloid leukemia in DIFFERENTIAL 3:42 AM CDT remission (HCC) COMPREHENSIVE METABOLIC Routine 01/27/2020 Acute myeloid leukemia in PANEL 3:42 AM CDT remission (HCC) CBC W/PLT COUNT & AUTO Routine 01/27/2020 Acute m yeloid leukemia in DIFFERENTIAL 3:42 AM CDT remission (HCC) CT CHEST WITHOUT IV Routine 01/26/2020 CONTRAST 11:58 AM CDT (CELLAVISION MANUAL DIFF) Routine 01/26/2020 Acut e myeloid leukemia in 4:29 AM CDT remission (HCC) CBC W/PLT COUNT & AUTO Routine 01/26/2020 Acute m yeloid leukemia in DIFFERENTIAL 4:29 AM CDT remission (HCC) COMPREHENSIVE METABOLIC Routine 01/26/2020 Acute myeloid leukemia in PANEL 4:29 AM CDT remission (HCC) CBC W/PLT COUNT & AUTO Routine 01/26/2020 Acute m yeloid leukemia in DIFFERENTIAL 4:29 AM CDT remission (HCC) CBC W/PLT COUNT & AUTO Routine 01/25/2020 Acute m yeloid leukemia in DIFFERENTIAL 4:33 AM CDT remission (HCC) COMPREHENSIVE METABOLIC Routine 01/25/2020 Acute myeloid leukemia in PANEL 4:33 AM CDT remission (HCC) CBC W/PLT COUNT & AUTO Routine 01/25/2020 Acute m yeloid leukemia in DIFFERENTIAL 4:33 AM CDT remission (HCC) CBC W/PLT COUNT & AUTO Routine 01/24/2020 Acute m yeloid leukemia in DIFFERENTIAL 4:47 AM CDT remission (HCC) COMPREHENSIVE METABOLIC Routine 01/24/2020 Acute myeloid leukemia in PANEL 4:47 AM CDT remission (HCC) CBC W/PLT COUNT & AUTO Routine 01/24/2020 Acute m yeloid leukemia in DIFFERENTIAL 4:47 AM CDT remission (HCC) CBC W/PLT COUNT & AUTO Routine 01/23/2020 DIFFERENTIAL 2:29 PM CDT MAGNESIUM Routine 01/23/2020 2:29 PM CDT COMPREHENSIVE METABOLIC Routine 01/23/2020 PANEL 2:29 PM CDT CBC W/PLT COUNT & AUTO Routine 01/23/2020 DIFFERENTIAL 2:29 PM CDT TRANSFUSION SERVICE 01/05/2020 REPORT - SCAN 6:00 PM CDT PREPARE LEUKO-REDUCED AND Routine 01/04/2020 IRRADIATED RBC 11:54 PM CDT TRANSFUSION SERVICE 01/04/2020 REPORT - SCAN 6:01 PM CDT (CELLAVISION MANUAL DIFF) Routine 01/04/2020 4:59 AM CDT CBC W/PLT COUNT & AUTO Routine 01/04/2020 DIFFERENTIAL 4:59 AM CDT CBC W/PLT COUNT & AUTO Routine 01/04/2020 DIFFERENTIAL 4:59 AM CDT MAGNESIUM Routine 01/04/2020 4:59 AM CDT BASIC METABOLIC PANEL (7) Routine 01/04/2020 4:59 AM CDT TRANSFUSE LEUKO-REDUCED Routine 01/03/2020 AND IRRADIATED RED BLOOD 1:59 PM CDT CELLS PREPARE RBC Routine 01/03/2020 9:35 AM CDT (CELLAVISION MANUAL DIFF) Routine 01/03/2020 3:44 AM CDT CBC W/PLT COUNT & AUTO Routine 01/03/2020 DIFFERENTIAL 3:44 AM CDT CBC W/PLT COUNT & AUTO Routine 01/03/2020 DIFFERENTIAL 3:44 AM CDT MAGNESIUM Routine 01/03/2020 3:44 AM CDT BASIC METABOLIC PANEL (7) Routine 01/03/2020 3:44 AM CDT TRANSFUSION SERVICE 01/02/2020 REPORT - SCAN 6:01 PM CDT (CELLAVISION MANUAL DIFF) Routine 01/02/2020 4:13 AM CDT CBC W/PLT COUNT & AUTO Routine 01/02/2020 DIFFERENTIAL 4:13 AM CDT CBC W/PLT COUNT & AUTO Routine 01/02/2020 DIFFERENTIAL 4:13 AM CDT MAGNESIUM Routine 01/02/2020 4:13 AM CDT BASIC METABOLIC PANEL (7) Routine 01/02/2020 4:13 AM CDT PREPARE PLATELETS Routine 01/01/2020 11:54 PM CDT TRANSFUSION SERVICE 01/01/2020 REPORT - SCAN 6:21 PM CDT (MANUAL DIFFERENTIAL) Routine 01/01/2020 4:56 AM CDT CBC W/PLT COUNT & AUTO Routine 01/01/2020 DIFFERENTIAL 4:56 AM CDT CBC W/PLT COUNT & AUTO Routine 01/01/2020 DIFFERENTIAL 4:56 AM CDT MAGNESIUM Routine 01/01/2020 4:56 AM CDT BASIC METABOLIC PANEL (7) Routine 01/01/2020 4:56 AM CDT PREPARE LEUKO-REDUCED AND Routine 12/31/2019 IRRADIATED RBC 11:54 PM CDT VANCOMYCIN LEVEL, TROUGH Timed 12/31/2019 8:29 PM CDT TRANSFUSE LEUKO-REDUCED Routine 12/31/2019 AND IRRADIATED PLATELETS 5:58 PM CDT TYPE AND SCREEN, Routine 12/31/2019 AUTOMATED 9:27 AM CDT (CELLAVISION MANUAL DIFF) Routine 12/31/2019 5:23 AM CDT CBC W/PLT COUNT & AUTO Routine 12/31/2019 DIFFERENTIAL 5:23 AM CDT CBC W/PLT COUNT & AUTO Routine 12/31/2019 DIFFERENTIAL 5:23 AM CDT MAGNESIUM Routine 12/31/2019 5:23 AM CDT BASIC METABOLIC PANEL (7) Routine 12/31/2019 5:23 AM CDT TRANSFUSION SERVICE 12/30/2019 REPORT - SCAN 6:02 PM CDT TRANSFUSION SERVICE 12/30/2019 REPORT - SCAN 6:00 PM CDT (MANUAL DIFFERENTIAL) Routine 12/30/2019 5:11 AM CDT CBC W/PLT COUNT & AUTO Routine 12/30/2019 DIFFERENTIAL 5:11 AM CDT CBC W/PLT COUNT & AUTO Routine 12/30/2019 DIFFERENTIAL 5:11 AM CDT MAGNESIUM Routine 12/30/2019 5:11 AM CDT BASIC METABOLIC PANEL (7) Routine 12/30/2019 5:11 AM CDT TRANSFUSE LEUKO-REDUCED Routine 12/30/2019 AND IRRADIATED RED BLOOD 3:51 AM CDT CELLS PREPARE LEUKO-REDUCED AND Routine 12/29/2019 Acut e myeloid leukemia in IRRADIATED PLATELETS 11:54 PM CDT remission (HCC) RESPIRATORY PANEL [facility] Routine 12/29/2019 8:26 PM CDT LACTIC ACID, VENOUS STAT 12/29/2019 8:24 PM CDT URINALYSIS W/ REFLEX STAT 12/29/2019 URINE CULTURE 7:09 PM CDT FUNGUS CULTURE, BLOOD STAT 12/29/2019 (ISOLATOR) 6:32 PM CDT TRANSFUSION SERVICE 12/29/2019 REPORT - SCAN 6:03 PM CDT SARS-COV2/RT-PCR ([facility] & STAT 12/29/2019 REF LABS) 5:56 PM CDT BLOOD CULTURE STAT 12/29/2019 5:54 PM CDT (CELLAVISION MANUAL DIFF) Routine 12/29/2019 5:49 PM CDT CBC W/PLT COUNT & AUTO STAT 12/29/2019 DIFFERENTIAL 5:49 PM CDT LACTIC ACID, VENOUS STAT 12/29/2019 5:49 PM CDT CBC W/PLT COUNT & AUTO STAT 12/29/2019 DIFFERENTIAL 5:49 PM CDT APTT STAT 12/29/2019 5:48 PM CDT PROTHROMBIN TIME/INR STAT 12/29/2019 5:48 PM CDT COMPREHENSIVE METABOLIC STAT 12/29/2019 PANEL 5:48 PM CDT BLOOD CULTURE STAT 12/29/2019 5:48 PM CDT XR CHEST 1 VIEW STAT 12/29/2019 PORTABLE/BEDSIDE 4:55 PM CDT CRITICAL CARE Routine 12/29/2019 4:51 PM CDT TRANSFUSION SERVICE 12/28/2019 REPORT - SCAN 6:04 PM CDT TRANSFUSE LEUKO-REDUCED Routine 12/28/2019 Acute myeloid leukemia in AND IRRADIATED PLATELETS 12:18 PM CDT remission (H CC) TYPE AND SCREEN, Routine 12/27/2019 AUTOMATED 1:48 PM CDT TRANSFUSION SERVICE 12/24/2019 REPORT - SCAN 6:00 PM CDT PREPARE LEUKO-REDUCED AND Routine 12/23/2019 IRRADIATED RBC 11:54 PM CDT TRANSFUSION SERVICE 12/23/2019 REPORT - SCAN 6:00 PM CDT TRANSFUSE LEUKO-REDUCED Routine 12/22/2019 AND IRRADIATED RED BLOOD 5:46 PM CDT CELLS TYPE AND SCREEN, Routine 12/22/2019 AUTOMATED 1:04 PM CDT (CELLAVISION MANUAL DIFF) Routine 12/22/2019 5:15 AM CDT CBC W/PLT COUNT & AUTO Routine 12/22/2019 DIFFERENTIAL 5:15 AM CDT COMPREHENSIVE METABOLIC Routine 12/22/2019 Acute myeloid leukemia in PANEL 5:15 AM CDT remission (HCC) CBC W/PLT COUNT & AUTO Routine 12/22/2019 DIFFERENTIAL 5:15 AM CDT MAGNESIUM Routine 12/22/2019 5:15 AM CDT (CELLAVISION MANUAL DIFF) Routine 12/21/2019 4:48 AM CDT CBC W/PLT COUNT & AUTO Routine 12/21/2019 DIFFERENTIAL 4:48 AM CDT COMPREHENSIVE METABOLIC Routine 12/21/2019 Acute myeloid leukemia in PANEL 4:48 AM CDT remission (HCC) CBC W/PLT COUNT & AUTO Routine 12/21/2019 DIFFERENTIAL 4:48 AM CDT MAGNESIUM Routine 12/21/2019 4:48 AM CDT (CELLAVISION MANUAL DIFF) Routine 12/20/2019 4:34 AM CDT CBC W/PLT COUNT & AUTO Routine 12/20/2019 DIFFERENTIAL 4:34 AM CDT COMPREHENSIVE METABOLIC Routine 12/20/2019 Acute myeloid leukemia in PANEL 4:34 AM CDT remission (HCC) CBC W/PLT COUNT & AUTO Routine 12/20/2019 DIFFERENTIAL 4:34 AM CDT MAGNESIUM Routine 12/20/2019 4:34 AM CDT (CELLAVISION MANUAL DIFF) Routine 12/19/2019 4:18 AM CDT CBC W/PLT COUNT & AUTO Routine 12/19/2019 DIFFERENTIAL 4:18 AM CDT COMPREHENSIVE METABOLIC Routine 12/19/2019 Acute myeloid leukemia in PANEL 4:18 AM CDT remission (HCC) CBC W/PLT COUNT & AUTO Routine 12/19/2019 DIFFERENTIAL 4:18 AM CDT PHOSPHORUS Routine 12/19/2019 4:18 AM CDT MAGNESIUM Routine 12/19/2019 4:18 AM CDT CBC W/PLT COUNT & AUTO Routine 12/18/2019 DIFFERENTIAL 4:37 AM CDT COMPREHENSIVE METABOLIC Routine 12/18/2019 Acute myeloid leukemia in PANEL 4:37 AM CDT remission (HCC) CBC W/PLT COUNT & AUTO Routine 12/18/2019 DIFFERENTIAL 4:37 AM CDT PHOSPHORUS Routine 12/18/2019 4:37 AM CDT MAGNESIUM Routine 12/18/2019 4:37 AM CDT PROTHROMBIN TIME/INR Routine 12/17/2019 5:55 PM CDT PHOSPHORUS Routine 12/17/2019 5:55 PM CDT HEPATIC FUNCTION PANEL Routine 12/17/2019 5:55 PM CDT XR CHEST 2 VIEWS Routine 12/17/2019 3:51 PM CDT SARS-COV2/RT-PCR ([facility] & Routine 12/17/2019 REF LABS) 2:14 PM CDT (CELLAVISION MANUAL DIFF) Routine 12/17/2019 1:19 PM CDT CBC W/PLT COUNT & AUTO Routine 12/17/2019 DIFFERENTIAL 1:19 PM CDT MAGNESIUM STAT 12/17/2019 Add-on 1:19 PM CDT COMPREHENSIVE METABOLIC Routine 12/17/2019 PANEL 1:19 PM CDT CBC W/PLT COUNT & AUTO Routine 12/17/2019 DIFFERENTIAL 1:19 PM CDT (CELLAVISION MANUAL DIFF) Routine 11/29/2019 4:41 AM CDT CBC W/PLT COUNT & AUTO Routine 11/29/2019 DIFFERENTIAL 4:41 AM CDT CBC W/PLT COUNT & AUTO Routine 11/29/2019 DIFFERENTIAL 4:41 AM CDT BASIC METABOLIC PANEL (7) Routine 11/29/2019 4:41 AM CDT CHROMOSOMES CANCER STUDY Routine 11/28/2019 2:08 PM CDT BONE MARROW PROCESS. Routine 11/28/2019 12:30 PM CDT FLOW CYTOMETRY Routine 11/28/2019 12:15 PM CDT BONE MARROW EXAM Routine 11/28/2019 12:15 PM CDT FLOW CYTOMETRY Routine 11/28/2019 REQUISITION 12:15 PM CDT (CELLAVISION MANUAL DIFF) Routine 11/28/2019 5:16 AM CDT CBC W/PLT COUNT & AUTO Routine 11/28/2019 DIFFERENTIAL 5:16 AM CDT CBC W/PLT COUNT & AUTO Routine 11/28/2019 DIFFERENTIAL 5:16 AM CDT BASIC METABOLIC PANEL (7) Routine 11/28/2019 5:16 AM CDT TRANSFUSION SERVICE 11/27/2019 REPORT - SCAN 6:11 PM CDT 2D ECHO W/ DOPPLER Routine 11/27/2019 (CW/PW/COLOR) 1:54 PM CDT VORICONAZOLE LEVEL Routine 11/27/2019 8:46 AM CDT (CELLAVISION MANUAL DIFF) Routine 11/27/2019 5:47 AM CDT CBC W/PLT COUNT & AUTO Routine 11/27/2019 DIFFERENTIAL 5:47 AM CDT COMPREHENSIVE METABOLIC Routine 11/27/2019 PANEL 5:47 AM CDT CBC W/PLT COUNT & AUTO Routine 11/27/2019 DIFFERENTIAL 5:47 AM CDT PREPARE RBC Routine 11/26/2019 11:54 PM CDT FUNGUS CULTURE, BLOOD Routine 11/26/2019 (ISOLATOR) 11:[address] CHEST WITHOUT IV Routine 11/26/2019 CONTRAST 10:25 AM CDT (CELLAVISION MANUAL DIFF) Routine 11/26/2019 4:43 AM CDT CBC W/PLT COUNT & AUTO Routine 11/26/2019 DIFFERENTIAL 4:43 AM CDT CBC W/PLT COUNT & AUTO Routine 11/26/2019 DIFFERENTIAL 4:43 AM CDT BASIC METABOLIC PANEL (7) Routine 11/26/2019 4:43 AM CDT TRANSFUSION SERVICE 11/25/2019 REPORT - SCAN 6:00 PM CDT (CELLAVISION MANUAL DIFF) Routine 11/25/2019 5:03 AM CDT CBC W/PLT COUNT & AUTO Routine 11/25/2019 DIFFERENTIAL 5:03 AM CDT CBC W/PLT COUNT & AUTO Routine 11/25/2019 DIFFERENTIAL 5:03 AM CDT BASIC METABOLIC PANEL (7) Routine 11/25/2019 5:03 AM CDT PREPARE LEUKO-REDUCED AND Routine 11/24/2019 IRRADIATED PLATELETS 11:54 PM CDT TRANSFUSION SERVICE 11/24/2019 REPORT - SCAN 6:01 PM CDT STOOL PATH CHARGE Routine 11/24/2019 4:09 PM CDT SHIGA TOXIN SCREEN Routine 11/24/2019 4:09 PM CDT C. DIFFICILE GDH TOXIN Routine 11/24/2019 4:09 PM CDT STOOL CULTURE + SHIGA Routine 11/24/2019 TOXIN 4:09 PM CDT (CELLAVISION MANUAL DIFF) Routine 11/24/2019 5:19 AM CDT CBC W/PLT COUNT & AUTO Routine 11/24/2019 DIFFERENTIAL 5:19 AM CDT CBC W/PLT COUNT & AUTO Routine 11/24/2019 DIFFERENTIAL 5:19 AM CDT BASIC METABOLIC PANEL (7) Routine 11/24/2019 5:19 AM CDT PREPARE LEUKO-REDUCED AND Routine 11/23/2019 IRRADIATED RBC 11:54 PM CDT TRANSFUSE LEUKO-REDUCED Routine 11/23/2019 AND IRRADIATED PLATELETS 9:39 PM CDT URINALYSIS W/ MICROSCOPIC Routine 11/23/2019 7:47 PM CDT TRANSFUSION SERVICE 11/23/2019 REPORT - SCAN 6:01 PM CDT (MANUAL DIFFERENTIAL) Routine 11/23/2019 5:20 AM CDT CBC W/PLT COUNT & AUTO Routine 11/23/2019 DIFFERENTIAL 5:20 AM CDT TYPE AND SCREEN, Routine 11/23/2019 AUTOMATED 5:20 AM CDT CBC W/PLT COUNT & AUTO Routine 11/23/2019 DIFFERENTIAL 5:20 AM CDT BASIC METABOLIC PANEL (7) Routine 11/23/2019 5:20 AM CDT PREPARE LEUKO-REDUCED Routine 11/22/2019 PLATELETS 11:54 PM CDT TRANSFUSE LEUKO-REDUCED Routine 11/22/2019 AND IRRADIATED RED BLOOD 10:25 PM CDT CELLS TRANSFUSION SERVICE 11/22/2019 REPORT - SCAN 6:01 PM CDT MR LOWER EXTREMITY WITH & Routine 11/22/2019 WITHOUT IV CONTRAST LEFT 9:37 AM CDT (MANUAL DIFFERENTIAL) Routine 11/22/2019 4:23 AM CDT CBC W/PLT COUNT & AUTO Routine 11/22/2019 DIFFERENTIAL 4:23 AM CDT CBC W/PLT COUNT & AUTO Routine 11/22/2019 DIFFERENTIAL 4:23 AM CDT BASIC METABOLIC PANEL (7) Routine 11/22/2019 4:23 AM CDT BLOOD CULTURE, ROUTINE Routine 11/22/2019 ISOLATOR 4:23 AM CDT MISCELLANEOUS LAB ORDER Routine 11/22/2019 4:23 AM CDT HISTOPLASMA AB,ID Routine 11/22/2019 4:22 AM CDT COCCIDIOIDES ANTIBODIES Routine 11/22/2019 4:22 AM CDT BLASTOMYCES ANTIBODY Routine 11/22/2019 4:22 AM CDT ASPERGILLUS ANTIBODY,ID Routine 11/22/2019 4:22 AM CDT CRYPTOCOCCAL ANTIGEN Routine 11/22/2019 4:22 AM CDT FUNGAL PANEL Routine 11/22/2019 4:22 AM CDT ASPERGILLUS GALACTOMANNAN Routine 11/22/2019 ANTIGEN 4:22 AM CDT TRANSFUSION SERVICE 11/21/2019 REPORT - SCAN 6:01 PM CDT XR CHEST 1 VIEW Routine 11/21/2019 PORTABLE/BEDSIDE 7:53 AM CDT (CELLAVISION MANUAL DIFF) Routine 11/21/2019 5:50 AM CDT CBC W/PLT COUNT & AUTO Routine 11/21/2019 DIFFERENTIAL 5:50 AM CDT CBC W/PLT COUNT & AUTO Routine 11/21/2019 DIFFERENTIAL 5:50 AM CDT BASIC METABOLIC PANEL (7) Routine 11/21/2019 5:50 AM CDT URINALYSIS W/ MICROSCOPIC Routine 11/21/2019 5:50 AM CDT URINE CULTURE Routine 11/21/2019 5:50 AM CDT TRANSFUSE LEUKO-REDUCED Routine 11/21/2019 PLATELETS 4:31 AM CDT TRANSFUSE LEUKO-REDUCED Routine 11/21/2019 PLATELETS 1:12 AM CDT WOUND CULTURE + GRAM Routine 11/20/2019 STAIN 11:12 PM CDT BLOOD CULTURE Routine 11/20/2019 8:30 PM CDT BLOOD CULTURE Routine 11/20/2019 8:24 PM CDT TYPE AND SCREEN, Routine 11/20/2019 AUTOMATED 8:06 PM CDT TRANSFUSION SERVICE 11/18/2019 REPORT - SCAN 6:00 PM CDT PREPARE LEUKO-REDUCED AND Routine 11/17/2019 IRRADIATED RBC 11:54 PM CDT PREPARE LEUKO-REDUCED AND Routine 11/17/2019 IRRADIATED PLATELETS 11:54 PM CDT TRANSFUSION SERVICE 11/17/2019 REPORT - SCAN 6:01 PM CDT TRANSFUSION SERVICE 11/16/2019 REPORT - SCAN 6:01 PM CDT (CELLAVISION MANUAL DIFF) Routine 11/16/2019 9:28 AM CDT CBC W/PLT COUNT & AUTO Routine 11/16/2019 DIFFERENTIAL 9:28 AM CDT CBC W/PLT COUNT & AUTO Routine 11/16/2019 DIFFERENTIAL 9:28 AM CDT BASIC METABOLIC PANEL (7) Routine 11/16/2019 9:28 AM CDT TRANSFUSE LEUKO-REDUCED Routine 11/16/2019 AND IRRADIATED PLATELETS 6:31 AM CDT TRANSFUSE LEUKO-REDUCED Routine 11/16/2019 AND IRRADIATED PLATELETS 4:45 AM CDT TRANSFUSE LEUKO-REDUCED Routine 11/16/2019 AND IRRADIATED RED BLOOD 3:00 AM CDT CELLS TRANSFUSE LEUKO-REDUCED Routine 11/15/2019 AND IRRADIATED RED BLOOD 11:48 PM CDT CELLS SARS-COV2/RT-PCR ([facility] & Routine 11/15/2019 REF LABS) 7:09 PM CDT (CELLAVISION MANUAL DIFF) Routine 11/15/2019 6:09 PM CDT CBC W/PLT COUNT & AUTO Routine 11/15/2019 DIFFERENTIAL 6:09 PM CDT CBC W/PLT COUNT & AUTO Routine 11/15/2019 DIFFERENTIAL 6:09 PM CDT TYPE AND SCREEN, Routine 11/15/2019 AUTOMATED 6:07 PM CDT BASIC METABOLIC PANEL (7) Routine 11/15/2019 6:07 PM CDT REPORT OF PROCEDURE - 11/15/2019 ENDOSCOPY SCAN 3:01 PM CDT TRANSFUSION SERVICE 11/12/2019 REPORT - SCAN 6:02 PM CDT PREPARE LEUKO-REDUCED AND STAT 11/11/2019 IRRADIATED PLATELETS 11:54 PM CDT TRANSFUSION SERVICE 11/11/2019 REPORT - SCAN 6:02 PM CDT TRANSFUSE LEUKO-REDUCED STAT 11/10/2019 AND IRRADIATED PLATELETS 5:44 PM CDT TROPONIN I STAT 11/10/2019 4:13 PM CDT TYPE AND SCREEN, STAT 11/10/2019 AUTOMATED 2:47 PM CDT ECG 12-LEAD Routine 11/10/2019 2:27 PM CDT ECG 12-LEAD Routine 11/10/2019 2:27 PM CDT Procedure Note - Interface, External Ris In - 11/12/2019 8:02 PM CDT Ventricula r Rate 61 BPM Atrial Rate 61 BPM P-R Interval 176 ms QRS Duration 66 ms Q-T Interval 406 ms QTC Calculatio n(Bazett) 408 ms P [place] 59 degrees R [place] 61 degrees T [place] 48 degrees Normal sinus rhythm Normal ECG When compared with ECG of 0 15:24, No significan t change was found (CELLAVISION MANUAL DIFF) STAT 11/10/2019 2:16 PM CDT CBC W/PLT COUNT & AUTO STAT 11/10/2019 DIFFERENTIAL 2:16 PM CDT B-TYPE NATRIURETIC FACTOR STAT 11/10/2019 (BNP) 2:16 PM CDT PHOSPHORUS STAT 11/10/2019 2:16 PM CDT TROPONIN I STAT 11/10/2019 2:16 PM CDT COMPREHENSIVE METABOLIC STAT 11/10/2019 PANEL 2:16 PM CDT MAGNESIUM STAT 11/10/2019 2:16 PM CDT CBC W/PLT COUNT & AUTO STAT 11/10/2019 DIFFERENTIAL 2:16 PM CDT TRANSFUSION SERVICE 11/09/2019 REPORT - SCAN 6:01 PM CDT PREPARE LEUKO-REDUCED AND Routine 11/08/2019 IRRADIATED RBC 11:54 PM CDT TRANSFUSION SERVICE 11/08/2019 REPORT - SCAN 5:51 PM CDT TRANSFUSION SERVICE 11/07/2019 REPORT - SCAN 6:10 PM CDT TRANSFUSE LEUKO-REDUCED Routine 11/07/2019 AND IRRADIATED RED BLOOD 2:32 PM CDT CELLS (CELLAVISION MANUAL DIFF) Routine 11/07/2019 5:03 AM CDT CBC W/PLT COUNT & AUTO Routine 11/07/2019 DIFFERENTIAL 5:03 AM CDT COMPREHENSIVE METABOLIC Routine 11/07/2019 PANEL 5:03 AM CDT CBC W/PLT COUNT & AUTO Routine 11/07/2019 DIFFERENTIAL 5:03 AM CDT PREPARE LEUKO-REDUCED AND Routine 11/06/2019 IRRADIATED PLATELETS 11:54 PM CDT TRANSFUSION SERVICE 11/06/2019 REPORT - SCAN 6:51 PM CDT (CELLAVISION MANUAL DIFF) Routine 11/06/2019 4:28 AM CDT CBC W/PLT COUNT & AUTO Routine 11/06/2019 DIFFERENTIAL 4:28 AM CDT COMPREHENSIVE METABOLIC Routine 11/06/2019 PANEL 4:28 AM CDT CBC W/PLT COUNT & AUTO Routine 11/06/2019 DIFFERENTIAL 4:28 AM CDT PREPARE LEUKO-REDUCED AND Routine 11/05/2019 IRRADIATED PLATELETS 11:54 PM CDT TRANSFUSION SERVICE 11/05/2019 REPORT - SCAN 5:50 PM CDT TRANSFUSE LEUKO-REDUCED Routine 11/05/2019 AND IRRADIATED PLATELETS 2:43 PM CDT TYPE AND SCREEN, Routine 11/05/2019 AUTOMATED 9:59 AM CDT (CELLAVISION MANUAL DIFF) Routine 11/05/2019 4:23 AM CDT CBC W/PLT COUNT & AUTO Routine 11/05/2019 DIFFERENTIAL 4:23 AM CDT COMPREHENSIVE METABOLIC Routine 11/05/2019 PANEL 4:23 AM CDT CBC W/PLT COUNT & AUTO Routine 11/05/2019 DIFFERENTIAL 4:23 AM CDT TRANSFUSE LEUKO-REDUCED Routine 11/04/2019 AND IRRADIATED PLATELETS 12:28 PM CDT (CELLAVISION MANUAL DIFF) Routine 11/04/2019 4:35 AM CDT CBC W/PLT COUNT & AUTO Routine 11/04/2019 DIFFERENTIAL 4:35 AM CDT COMPREHENSIVE METABOLIC Routine 11/04/2019 PANEL 4:35 AM CDT CBC W/PLT COUNT & AUTO Routine 11/04/2019 DIFFERENTIAL 4:35 AM CDT TRANSFUSION SERVICE 11/03/2019 REPORT - SCAN 5:51 PM CDT COMPREHENSIVE METABOLIC Routine 11/03/2019 PANEL 5:18 AM CDT (CELLAVISION MANUAL DIFF) Routine 11/03/2019 4:51 AM CDT CBC W/PLT COUNT & AUTO Routine 11/03/2019 DIFFERENTIAL 4:51 AM CDT CBC W/PLT COUNT & AUTO Routine 11/03/2019 DIFFERENTIAL 4:51 AM CDT PREPARE LEUKO-REDUCED AND Routine 11/02/2019 IRRADIATED RBC 11:54 PM CDT TRANSFUSION SERVICE 11/02/2019 REPORT - SCAN 5:51 PM CDT BLOOD CULTURE Routine 11/02/2019 5:40 AM CDT (CELLAVISION MANUAL DIFF) Routine 11/02/2019 5:25 AM CDT CBC W/PLT COUNT & AUTO Routine 11/02/2019 DIFFERENTIAL 5:25 AM CDT MAGNESIUM Routine 11/02/2019 5:25 AM CDT CBC W/PLT COUNT & AUTO Routine 11/02/2019 DIFFERENTIAL 5:25 AM CDT BASIC METABOLIC PANEL (7) Routine 11/02/2019 5:25 AM CDT BLOOD CULTURE Routine 11/02/2019 5:25 AM CDT TRANSFUSE LEUKO-REDUCED Routine 11/01/2019 AND IRRADIATED RED BLOOD 4:58 PM CDT CELLS TYPE AND SCREEN, Routine 11/01/2019 AUTOMATED 9:18 AM CDT CBC W/PLT COUNT & AUTO Routine 11/01/2019 DIFFERENTIAL 4:44 AM CDT HEPATIC FUNCTION PANEL Add-On 11/01/2019 4:44 AM CDT MAGNESIUM Routine 11/01/2019 4:44 AM CDT CBC W/PLT COUNT & AUTO Routine 11/01/2019 DIFFERENTIAL 4:44 AM CDT BASIC METABOLIC PANEL (7) Routine 11/01/2019 4:44 AM CDT MAGNESIUM Routine 10/31/2019 5:32 AM CDT BASIC METABOLIC PANEL (7) Routine 10/31/2019 5:32 AM CDT (CELLAVISION MANUAL DIFF) Routine 10/31/2019 5:28 AM CDT CBC W/PLT COUNT & AUTO Routine 10/31/2019 DIFFERENTIAL 5:28 AM CDT CBC W/PLT COUNT & AUTO Routine 10/31/2019 DIFFERENTIAL 5:28 AM CDT TRANSFUSION SERVICE 10/30/2019 REPORT - SCAN 5:51 PM CDT (MANUAL DIFFERENTIAL) Routine 10/30/2019 4:49 AM CDT CBC W/PLT COUNT & AUTO Routine 10/30/2019 DIFFERENTIAL 4:49 AM CDT CREATINE KINASE (CK) Add-On 10/30/2019 4:49 AM CDT MAGNESIUM Routine 10/30/2019 4:49 AM CDT CBC W/PLT COUNT & AUTO Routine 10/30/2019 DIFFERENTIAL 4:49 AM CDT BASIC METABOLIC PANEL (7) Routine 10/30/2019 4:49 AM CDT PREPARE LEUKO-REDUCED AND Routine 10/29/2019 IRRADIATED PLATELETS 11:54 PM CDT TRANSFUSION SERVICE 10/29/2019 REPORT - SCAN 5:50 PM CDT MISCELLANEOUS LAB ORDER Routine 10/29/2019 12:39 PM CDT VANCOMYCIN LEVEL, TROUGH Timed 10/29/2019 12:33 PM CDT BARTONELLA SPECIES ABS, Routine 10/29/2019 REFLEX TO TITER 12:33 PM CDT ASPERGILLUS GALACTOMANNAN Routine 10/29/2019 ANTIGEN 12:33 PM CDT (CELLAVISION MANUAL DIFF) Routine 10/29/2019 4:47 AM CDT CBC W/PLT COUNT & AUTO Routine 10/29/2019 DIFFERENTIAL 4:47 AM CDT MAGNESIUM Routine 10/29/2019 4:47 AM CDT CBC W/PLT COUNT & AUTO Routine 10/29/2019 DIFFERENTIAL 4:47 AM CDT BASIC METABOLIC PANEL (7) Routine 10/29/2019 4:47 AM CDT TRANSFUSION SERVICE 10/28/2019 REPORT - SCAN 5:51 PM CDT TRANSFUSE LEUKO-REDUCED Routine 10/28/2019 AND IRRADIATED PLATELETS 11:35 AM CDT TYPE AND SCREEN, Routine 10/28/2019 AUTOMATED 8:00 AM CDT (CELLAVISION MANUAL DIFF) Routine 10/28/2019 5:56 AM CDT CBC W/PLT COUNT & AUTO Routine 10/28/2019 DIFFERENTIAL 5:56 AM CDT MAGNESIUM Routine 10/28/2019 5:56 AM CDT CBC W/PLT COUNT & AUTO Routine 10/28/2019 DIFFERENTIAL 5:56 AM CDT BASIC METABOLIC PANEL (7) Routine 10/28/2019 5:56 AM CDT PREPARE LEUKO-REDUCED RBC Routine 10/27/2019 11:54 PM CDT TRANSFUSION SERVICE 10/27/2019 REPORT - SCAN 5:51 PM CDT (MANUAL DIFFERENTIAL) Routine 10/27/2019 5:48 AM CDT CBC W/PLT COUNT & AUTO Routine 10/27/2019 DIFFERENTIAL 5:48 AM CDT MAGNESIUM Routine 10/27/2019 5:48 AM CDT CBC W/PLT COUNT & AUTO Routine 10/27/2019 DIFFERENTIAL 5:48 AM CDT BASIC METABOLIC PANEL (7) Routine 10/27/2019 5:48 AM CDT URINALYSIS WITH Routine 10/26/2019 MICROSCOPIC IF INDICATED 10:56 PM CDT BLOOD CULTURE Routine 10/26/2019 9:56 PM CDT BLOOD CULTURE Routine 10/26/2019 9:49 PM CDT TRANSFUSION SERVICE 10/26/2019 REPORT - SCAN 5:51 PM CDT TRANSFUSE LEUKO-REDUCED Routine 10/26/2019 RED BLOOD CELLS 12:35 PM CDT (CELLAVISION MANUAL DIFF) Routine 10/26/2019 5:25 AM CDT CBC W/PLT COUNT & AUTO Routine 10/26/2019 DIFFERENTIAL 5:25 AM CDT MAGNESIUM Routine 10/26/2019 5:25 AM CDT CBC W/PLT COUNT & AUTO Routine 10/26/2019 DIFFERENTIAL 5:25 AM CDT BASIC METABOLIC PANEL (7) Routine 10/26/2019 5:25 AM CDT PREPARE LEUKO-REDUCED AND Routine 10/25/2019 IRRADIATED PLATELETS 11:54 PM CDT TRANSFUSION SERVICE 10/25/2019 REPORT - SCAN 5:51 PM CDT (CELLAVISION MANUAL DIFF) Routine 10/25/2019 4:39 AM CDT CBC W/PLT COUNT & AUTO Routine 10/25/2019 DIFFERENTIAL 4:39 AM CDT MAGNESIUM Routine 10/25/2019 4:39 AM CDT CBC W/PLT COUNT & AUTO Routine 10/25/2019 DIFFERENTIAL 4:39 AM CDT BASIC METABOLIC PANEL (7) Routine 10/25/2019 4:39 AM CDT TRANSFUSE LEUKO-REDUCED Routine 10/24/2019 AND IRRADIATED PLATELETS 5:[address] CHEST WITH IV CONTRAST Routine 10/24/2019 10:[address] ABDOMEN/PELVIS WITH IV Routine 10/24/2019 CONTRAST 10:13 AM CDT CHROMOSOMES CANCER STUDY Routine 10/24/2019 8:37 AM CDT TYPE AND SCREEN, Routine 10/24/2019 AUTOMATED 8:18 AM CDT (CELLAVISION MANUAL DIFF) Routine 10/24/2019 4:36 AM CDT CBC W/PLT COUNT & AUTO Routine 10/24/2019 DIFFERENTIAL 4:36 AM CDT MAGNESIUM Routine 10/24/2019 4:36 AM CDT CBC W/PLT COUNT & AUTO Routine 10/24/2019 DIFFERENTIAL 4:36 AM CDT BASIC METABOLIC PANEL (7) Routine 10/24/2019 4:36 AM CDT FLOW CYTOMETRY Routine 10/23/2019 4:00 PM CDT FLOW CYTOMETRY Routine 10/23/2019 REQUISITION 4:00 PM CDT BONE MARROW EXAM Routine 10/23/2019 3:30 PM CDT BONE MARROW PROCESS. Routine 10/23/2019 3:30 PM CDT (CELLAVISION MANUAL DIFF) Routine 10/23/2019 4:45 AM CDT CBC W/PLT COUNT & AUTO Routine 10/23/2019 DIFFERENTIAL 4:45 AM CDT MAGNESIUM Routine 10/23/2019 4:45 AM CDT CBC W/PLT COUNT & AUTO Routine 10/23/2019 DIFFERENTIAL 4:45 AM CDT BASIC METABOLIC PANEL (7) Routine 10/23/2019 4:45 AM CDT BLOOD CULTURE Routine 10/22/2019 8:53 PM CDT BLOOD CULTURE Routine 10/22/2019 8:47 PM CDT XR CHEST 1 VIEW STAT 10/22/2019 PORTABLE/BEDSIDE 8:14 PM CDT TRANSFUSION SERVICE 10/22/2019 REPORT - SCAN 5:50 PM CDT (CELLAVISION MANUAL DIFF) Routine 10/22/2019 5:01 AM CDT CBC W/PLT COUNT & AUTO Routine 10/22/2019 DIFFERENTIAL 5:01 AM CDT MAGNESIUM Routine 10/22/2019 5:01 AM CDT CBC W/PLT COUNT & AUTO Routine 10/22/2019 DIFFERENTIAL 5:01 AM CDT BASIC METABOLIC PANEL (7) Routine 10/22/2019 5:01 AM CDT PREPARE LEUKO-REDUCED RBC Routine 10/21/2019 11:54 PM CDT TRANSFUSION SERVICE 10/21/2019 REPORT - SCAN 5:50 PM CDT (MANUAL DIFFERENTIAL) Routine 10/21/2019 4:51 AM CDT CBC W/PLT COUNT & AUTO Routine 10/21/2019 DIFFERENTIAL 4:51 AM CDT MAGNESIUM Routine 10/21/2019 4:51 AM CDT CBC W/PLT COUNT & AUTO Routine 10/21/2019 DIFFERENTIAL 4:51 AM CDT BASIC METABOLIC PANEL (7) Routine 10/21/2019 4:51 AM CDT PREPARE LEUKO-REDUCED AND Routine 10/20/2019 IRRADIATED PLATELETS 11:54 PM CDT TRANSFUSION SERVICE 10/20/2019 REPORT - SCAN 5:51 PM CDT TRANSFUSE LEUKO-REDUCED Routine 10/20/2019 RED BLOOD CELLS 5:18 PM CDT (CELLAVISION MANUAL DIFF) Routine 10/20/2019 4:31 AM CDT CBC W/PLT COUNT & AUTO Routine 10/20/2019 DIFFERENTIAL 4:31 AM CDT MAGNESIUM Routine 10/20/2019 4:31 AM CDT CBC W/PLT COUNT & AUTO Routine 10/20/2019 DIFFERENTIAL 4:31 AM CDT BASIC METABOLIC PANEL (7) Routine 10/20/2019 4:31 AM CDT TRANSFUSE LEUKO-REDUCED Routine 10/19/2019 AND IRRADIATED PLATELETS 4:31 PM CDT TYPE AND SCREEN, Routine 10/19/2019 AUTOMATED 1:08 PM CDT VANCOMYCIN LEVEL, TROUGH Timed 10/19/2019 10:57 AM CDT (MANUAL DIFFERENTIAL) Routine 10/19/2019 5:05 AM CDT CBC W/PLT COUNT & AUTO Routine 10/19/2019 DIFFERENTIAL 5:05 AM CDT MAGNESIUM Routine 10/19/2019 5:05 AM CDT CBC W/PLT COUNT & AUTO Routine 10/19/2019 DIFFERENTIAL 5:05 AM CDT BASIC METABOLIC PANEL (7) Routine 10/19/2019 5:05 AM CDT (CELLAVISION MANUAL DIFF) Routine 10/18/2019 4:30 AM CDT CBC W/PLT COUNT & AUTO Routine 10/18/2019 DIFFERENTIAL 4:30 AM CDT MAGNESIUM Routine 10/18/2019 4:30 AM CDT CBC W/PLT COUNT & AUTO Routine 10/18/2019 DIFFERENTIAL 4:30 AM CDT BASIC METABOLIC PANEL (7) Routine 10/18/2019 4:30 AM CDT TRANSFUSION SERVICE 10/17/2019 REPORT - SCAN 9:34 PM CDT (MANUAL DIFFERENTIAL) Routine 10/17/2019 3:54 AM CDT CBC W/PLT COUNT & AUTO Routine 10/17/2019 DIFFERENTIAL 3:54 AM CDT MAGNESIUM Routine 10/17/2019 3:54 AM CDT CBC W/PLT COUNT & AUTO Routine 10/17/2019 DIFFERENTIAL 3:54 AM CDT BASIC METABOLIC PANEL (7) Routine 10/17/2019 3:54 AM CDT PREPARE LEUKO-REDUCED AND Routine 10/16/2019 IRRADIATED PLATELETS 11:54 PM CDT TRANSFUSION SERVICE 10/16/2019 REPORT - SCAN 7:25 PM CDT (MANUAL DIFFERENTIAL) Routine 10/16/2019 5:31 AM CDT CBC W/PLT COUNT & AUTO Routine 10/16/2019 DIFFERENTIAL 5:31 AM CDT MAGNESIUM Routine 10/16/2019 5:31 AM CDT CBC W/PLT COUNT & AUTO Routine 10/16/2019 DIFFERENTIAL 5:31 AM CDT BASIC METABOLIC PANEL (7) Routine 10/16/2019 5:31 AM CDT TRANSFUSE LEUKO-REDUCED Routine 10/15/2019 AND IRRADIATED PLATELETS 10:49 PM CDT TYPE AND SCREEN, Routine 10/15/2019 AUTOMATED 6:02 PM CDT TRANSFUSION SERVICE 10/15/2019 REPORT - SCAN 5:50 PM CDT VANCOMYCIN LEVEL, TROUGH Timed 10/15/2019 4:38 PM CDT (CELLAVISION MANUAL DIFF) Routine 10/15/2019 5:08 AM CDT CBC W/PLT COUNT & AUTO Routine 10/15/2019 DIFFERENTIAL 5:08 AM CDT MAGNESIUM Routine 10/15/2019 5:08 AM CDT CBC W/PLT COUNT & AUTO Routine 10/15/2019 DIFFERENTIAL 5:08 AM CDT BASIC METABOLIC PANEL (7) Routine 10/15/2019 5:08 AM CDT PREPARE LEUKO-REDUCED AND BERNICE 10/14/2019 IRRADIATED PLATELETS 11:54 PM CDT TRANSFUSION SERVICE 10/14/2019 REPORT - SCAN 5:50 PM CDT VITAMIN B12 AND FOLATE Routine 10/14/2019 9:52 AM CDT (CELLAVISION MANUAL DIFF) Routine 10/14/2019 5:27 AM CDT CBC W/PLT COUNT & AUTO Routine 10/14/2019 DIFFERENTIAL 5:27 AM CDT MAGNESIUM Routine 10/14/2019 5:27 AM CDT CBC W/PLT COUNT & AUTO Routine 10/14/2019 DIFFERENTIAL 5:27 AM CDT BASIC METABOLIC PANEL (7) Routine 10/14/2019 5:27 AM CDT PREPARE LEUKO-REDUCED AND Routine 10/13/2019 IRRADIATED RBC 11:54 PM CDT TRANSFUSION SERVICE 10/13/2019 REPORT - SCAN 5:51 PM CDT TRANSFUSE LEUKO-REDUCED BERNICE 10/13/2019 AND IRRADIATED PLATELETS 12:53 PM CDT (MANUAL DIFFERENTIAL) Routine 10/13/2019 4:37 AM CDT CBC W/PLT COUNT & AUTO Routine 10/13/2019 DIFFERENTIAL 4:37 AM CDT MAGNESIUM Routine 10/13/2019 4:37 AM CDT CBC W/PLT COUNT & AUTO Routine 10/13/2019 DIFFERENTIAL 4:37 AM CDT BASIC METABOLIC PANEL (7) Routine 10/13/2019 4:37 AM CDT TRANSFUSION SERVICE 10/12/2019 REPORT - SCAN 5:51 PM CDT TRANSFUSE LEUKO-REDUCED Routine 10/12/2019 AND IRRADIATED RED BLOOD 2:08 PM CDT CELLS CMV PCR, QUANTITATIVE Routine 10/12/2019 11:04 AM CDT (CELLAVISION MANUAL DIFF) Routine 10/12/2019 4:09 AM CDT CBC W/PLT COUNT & AUTO Routine 10/12/2019 DIFFERENTIAL 4:09 AM CDT CBC W/PLT COUNT & AUTO Routine 10/12/2019 DIFFERENTIAL 4:09 AM CDT BASIC METABOLIC PANEL (7) Routine 10/12/2019 4:09 AM CDT MISCELLANEOUS LAB ORDER Routine 10/12/2019 4:09 AM CDT PREPARE LEUKO-REDUCED AND Routine 10/11/2019 IRRADIATED PLATELETS 11:[address] MAXILLOFACIAL WITH IV Routine 10/11/2019 CONTRAST 9:[address] ABDOMEN/PELVIS WITH IV Routine 10/11/2019 CONTRAST 9:[address] CHEST WITH IV CONTRAST Routine 10/11/2019 9:20 PM CDT TRANSFUSION SERVICE 10/11/2019 REPORT - SCAN 5:51 PM CDT (MANUAL DIFFERENTIAL) Routine 10/11/2019 4:18 AM CDT CBC W/PLT COUNT & AUTO Routine 10/11/2019 DIFFERENTIAL 4:18 AM CDT TYPE AND SCREEN, Routine 10/11/2019 AUTOMATED 4:18 AM CDT CBC W/PLT COUNT & AUTO Routine 10/11/2019 DIFFERENTIAL 4:18 AM CDT BASIC METABOLIC PANEL (7) Routine 10/11/2019 4:18 AM CDT TRANSFUSE LEUKO-REDUCED Routine 10/10/2019 AND IRRADIATED PLATELETS 1:12 PM CDT XR CHEST 1 VIEW Routine 10/10/2019 PORTABLE/BEDSIDE 7:56 AM CDT BLOOD CULTURE Routine 10/10/2019 6:46 AM CDT (CELLAVISION MANUAL DIFF) Routine 10/10/2019 5:28 AM CDT CBC W/PLT COUNT & AUTO Routine 10/10/2019 DIFFERENTIAL 5:28 AM CDT CBC W/PLT COUNT & AUTO Routine 10/10/2019 DIFFERENTIAL 5:28 AM CDT BASIC METABOLIC PANEL (7) Routine 10/10/2019 4:34 AM CDT TRANSFUSION SERVICE 10/09/2019 REPORT - SCAN 5:51 PM CDT (CELLAVISION MANUAL DIFF) Routine 10/09/2019 4:19 AM CDT CBC W/PLT COUNT & AUTO Routine 10/09/2019 DIFFERENTIAL 4:19 AM CDT BASIC METABOLIC PANEL (7) Routine 10/09/2019 4:19 AM CDT CBC W/PLT COUNT & AUTO Routine 10/09/2019 DIFFERENTIAL 4:19 AM CDT PREPARE LEUKO-REDUCED Routine 10/08/2019 PLATELETS 11:54 PM CDT XR CHEST 1 VIEW BERNICE 10/08/2019 PORTABLE/BEDSIDE 11:27 PM CDT URINALYSIS W/ REFLEX Routine 10/08/2019 URINE CULTURE 9:33 PM CDT BLOOD CULTURE Routine 10/08/2019 8:16 PM CDT BLOOD CULTURE Routine 10/08/2019 8:11 PM CDT TRANSFUSION SERVICE 10/08/2019 REPORT - SCAN 5:50 PM CDT VANCOMYCIN LEVEL, TROUGH Timed 10/08/2019 4:17 PM CDT (CELLAVISION MANUAL DIFF) Routine 10/08/2019 5:20 AM CDT CBC W/PLT COUNT & AUTO Routine 10/08/2019 DIFFERENTIAL 5:20 AM CDT BASIC METABOLIC PANEL (7) Routine 10/08/2019 5:20 AM CDT CBC W/PLT COUNT & AUTO Routine 10/08/2019 DIFFERENTIAL 5:20 AM CDT TRANSFUSION SERVICE 10/07/2019 REPORT - SCAN 5:50 PM CDT TRANSFUSE LEUKO-REDUCED Routine 10/07/2019 PLATELETS 4:49 PM CDT TYPE AND SCREEN, Routine 10/07/2019 AUTOMATED 10:11 AM CDT (MANUAL DIFFERENTIAL) Routine 10/07/2019 4:44 AM CDT CBC W/PLT COUNT & AUTO Routine 10/07/2019 DIFFERENTIAL 4:44 AM CDT BASIC METABOLIC PANEL (7) Routine 10/07/2019 4:44 AM CDT CBC W/PLT COUNT & AUTO Routine 10/07/2019 DIFFERENTIAL 4:44 AM CDT TRANSFUSION SERVICE 10/06/2019 REPORT - SCAN 5:51 PM CDT PREPARE RBC Routine 10/06/2019 5:04 AM CDT (CELLAVISION MANUAL DIFF) Routine 10/06/2019 4:19 AM CDT CBC W/PLT COUNT & AUTO Routine 10/06/2019 DIFFERENTIAL 4:19 AM CDT BASIC METABOLIC PANEL (7) Routine 10/06/2019 4:19 AM CDT CBC W/PLT COUNT & AUTO Routine 10/06/2019 DIFFERENTIAL 4:19 AM CDT PREPARE LEUKO-REDUCED Routine 10/05/2019 PLATELETS 11:54 PM CDT TRANSFUSION SERVICE 10/05/2019 REPORT - SCAN 5:51 PM CDT VANCOMYCIN LEVEL, TROUGH Timed 10/05/2019 2:41 PM CDT (MANUAL DIFFERENTIAL) Routine 10/05/2019 4:58 AM CDT CBC W/PLT COUNT & AUTO Routine 10/05/2019 DIFFERENTIAL 4:58 AM CDT BASIC METABOLIC PANEL (7) Routine 10/05/2019 4:58 AM CDT CBC W/PLT COUNT & AUTO Routine 10/05/2019 DIFFERENTIAL 4:58 AM CDT TRANSFUSION SERVICE 10/04/2019 REPORT - SCAN 5:50 PM CDT TRANSFUSE LEUKO-REDUCED Routine 10/04/2019 PLATELETS 2:03 PM CDT (CELLAVISION MANUAL DIFF) Routine 10/04/2019 4:46 AM CDT CBC W/PLT COUNT & AUTO Routine 10/04/2019 DIFFERENTIAL 4:46 AM CDT BASIC METABOLIC PANEL (7) Routine 10/04/2019 4:46 AM CDT CBC W/PLT COUNT & AUTO Routine 10/04/2019 DIFFERENTIAL 4:46 AM CDT PREPARE LEUKO-REDUCED RBC Routine 10/03/2019 11:54 PM CDT TRANSFUSION SERVICE 10/03/2019 REPORT - SCAN 8:10 PM CDT (CELLAVISION MANUAL DIFF) Routine 10/03/2019 5:21 AM CDT CBC W/PLT COUNT & AUTO Routine 10/03/2019 DIFFERENTIAL 5:21 AM CDT BASIC METABOLIC PANEL (7) Routine 10/03/2019 5:21 AM CDT CBC W/PLT COUNT & AUTO Routine 10/03/2019 DIFFERENTIAL 5:21 AM CDT TRANSFUSE LEUKO-REDUCED Routine 10/02/2019 RED BLOOD CELLS 1:45 PM CDT TYPE AND SCREEN, Routine 10/02/2019 AUTOMATED 8:17 AM CDT (CELLAVISION MANUAL DIFF) Routine 10/02/2019 5:46 AM CDT CBC W/PLT COUNT & AUTO Routine 10/02/2019 DIFFERENTIAL 5:46 AM CDT BASIC METABOLIC PANEL (7) Routine 10/02/2019 5:46 AM CDT CBC W/PLT COUNT & AUTO Routine 10/02/2019 DIFFERENTIAL 5:46 AM CDT VANCOMYCIN LEVEL, TROUGH Timed 10/02/2019 12:43 AM CDT TRANSFUSION SERVICE 10/01/2019 REPORT - SCAN 6:00 PM CDT (CELLAVISION MANUAL DIFF) Routine 10/01/2019 4:48 AM CDT CBC W/PLT COUNT & AUTO Routine 10/01/2019 DIFFERENTIAL 4:48 AM CDT PT/APTT Routine 10/01/2019 4:48 AM CDT COMPREHENSIVE METABOLIC Routine 10/01/2019 PANEL 4:48 AM CDT MAGNESIUM Routine 10/01/2019 4:48 AM CDT CBC W/PLT COUNT & AUTO Routine 10/01/2019 DIFFERENTIAL 4:48 AM CDT PREPARE LEUKO-REDUCED AND Routine 09/30/2019 IRRADIATED PLATELETS 11:54 PM CDT TRANSFUSION SERVICE 09/30/2019 REPORT - SCAN 5:[address] ABDOMEN/PELVIS WITH IV Routine 09/30/2019 CONTRAST 4:50 PM CDT URINE CULTURE Routine 09/30/2019 2:38 PM CDT BLOOD CULTURE Routine 09/30/2019 10:46 AM CDT XR CHEST 1 VIEW Routine 09/30/2019 PORTABLE/BEDSIDE 10:43 AM CDT BLOOD CULTURE Routine 09/30/2019 10:38 AM CDT (CELLAVISION MANUAL DIFF) Routine 09/30/2019 5:03 AM CDT CBC W/PLT COUNT & AUTO Routine 09/30/2019 DIFFERENTIAL 5:03 AM CDT CBC W/PLT COUNT & AUTO Routine 09/30/2019 DIFFERENTIAL 5:03 AM CDT BASIC METABOLIC PANEL (7) Routine 09/30/2019 5:02 AM CDT TRANSFUSE LEUKO-REDUCED Routine 09/29/2019 AND IRRADIATED PLATELETS 12:17 PM CDT (MANUAL DIFFERENTIAL) Routine 09/29/2019 5:39 AM CDT CBC W/PLT COUNT & AUTO Routine 09/29/2019 DIFFERENTIAL 5:39 AM CDT BASIC METABOLIC PANEL (7) Routine 09/29/2019 5:39 AM CDT CBC W/PLT COUNT & AUTO Routine 09/29/2019 DIFFERENTIAL 5:39 AM CDT TRANSFUSION SERVICE 09/28/2019 REPORT - SCAN 5:51 PM CDT (CELLAVISION MANUAL DIFF) Routine 09/28/2019 5:52 AM CDT CBC W/PLT COUNT & AUTO Routine 09/28/2019 DIFFERENTIAL 5:52 AM CDT BASIC METABOLIC PANEL (7) Routine 09/28/2019 5:52 AM CDT CBC W/PLT COUNT & AUTO Routine 09/28/2019 DIFFERENTIAL 5:52 AM CDT PREPARE LEUKO-REDUCED RBC Routine 09/27/2019 11:54 PM CDT TRANSFUSION SERVICE 09/27/2019 REPORT - SCAN 6:00 PM CDT (CELLAVISION MANUAL DIFF) Routine 09/27/2019 5:03 AM CDT CBC W/PLT COUNT & AUTO Routine 09/27/2019 DIFFERENTIAL 5:03 AM CDT BASIC METABOLIC PANEL (7) Routine 09/27/2019 5:03 AM CDT CBC W/PLT COUNT & AUTO Routine 09/27/2019 DIFFERENTIAL 5:03 AM CDT TRANSFUSE LEUKO-REDUCED Routine 09/26/2019 RED BLOOD CELLS 1:40 PM CDT TYPE AND SCREEN, Routine 09/26/2019 AUTOMATED 8:58 AM CDT (CELLAVISION MANUAL DIFF) Routine 09/26/2019 5:02 AM CDT CBC W/PLT COUNT & AUTO Routine 09/26/2019 DIFFERENTIAL 5:02 AM CDT LACTATE DEHYDROGENASE Routine 09/26/2019 (LDH) 5:02 AM CDT URIC ACID Routine 09/26/2019 5:02 AM CDT BASIC METABOLIC PANEL (7) Routine 09/26/2019 5:02 AM CDT CBC W/PLT COUNT & AUTO Routine 09/26/2019 DIFFERENTIAL 5:02 AM CDT (CELLAVISION MANUAL DIFF) Routine 09/25/2019 5:20 AM CDT CBC W/PLT COUNT & AUTO Routine 09/25/2019 DIFFERENTIAL 5:20 AM CDT COMPREHENSIVE METABOLIC Routine 09/25/2019 PANEL 5:20 AM CDT LACTATE DEHYDROGENASE Routine 09/25/2019 (LDH) 5:20 AM CDT URIC ACID Routine 09/25/2019 5:20 AM CDT CBC W/PLT COUNT & AUTO Routine 09/25/2019 DIFFERENTIAL 5:20 AM CDT TRANSFUSION SERVICE 09/24/2019 REPORT - SCAN 6:00 PM CDT (CELLAVISION MANUAL DIFF) Routine 09/24/2019 4:51 AM CDT CBC W/PLT COUNT & AUTO Routine 09/24/2019 DIFFERENTIAL 4:51 AM CDT LACTATE DEHYDROGENASE Routine 09/24/2019 (LDH) 4:51 AM CDT URIC ACID Routine 09/24/2019 4:51 AM CDT BASIC METABOLIC PANEL (7) Routine 09/24/2019 4:51 AM CDT CBC W/PLT COUNT & AUTO Routine 09/24/2019 DIFFERENTIAL 4:51 AM CDT PREPARE LEUKO-REDUCED AND Routine 09/23/2019 IRRADIATED PLATELETS 11:54 PM CDT TRANSFUSION SERVICE 09/23/2019 REPORT - SCAN 6:00 PM CDT (CELLAVISION MANUAL DIFF) Routine 09/23/2019 3:54 AM CDT CBC W/PLT COUNT & AUTO Routine 09/23/2019 DIFFERENTIAL 3:54 AM CDT LACTATE DEHYDROGENASE Routine 09/23/2019 (LDH) 3:54 AM CDT URIC ACID Routine 09/23/2019 3:54 AM CDT BASIC METABOLIC PANEL (7) Routine 09/23/2019 3:54 AM CDT CBC W/PLT COUNT & AUTO Routine 09/23/2019 DIFFERENTIAL 3:54 AM CDT TRANSFUSION SERVICE 09/22/2019 REPORT - SCAN 6:01 PM CDT TRANSFUSE LEUKO-REDUCED Routine 09/22/2019 AND IRRADIATED PLATELETS 11:39 AM CDT (CELLAVISION MANUAL DIFF) Routine 09/22/2019 5:10 AM CDT CBC W/PLT COUNT & AUTO Routine 09/22/2019 DIFFERENTIAL 5:10 AM CDT LACTATE DEHYDROGENASE Routine 09/22/2019 (LDH) 5:10 AM CDT URIC ACID Routine 09/22/2019 5:10 AM CDT PHOSPHORUS Routine 09/22/2019 5:10 AM CDT MAGNESIUM Routine 09/22/2019 5:10 AM CDT BASIC METABOLIC PANEL (7) Routine 09/22/2019 5:10 AM CDT CBC W/PLT COUNT & AUTO Routine 09/22/2019 DIFFERENTIAL 5:10 AM CDT PREPARE LEUKO-REDUCED AND Routine 09/21/2019 IRRADIATED RBC 11:54 PM CDT TRANSFUSION SERVICE 09/21/2019 REPORT - SCAN 6:00 PM CDT (CELLAVISION MANUAL DIFF) Routine 09/21/2019 4:17 AM CDT CBC W/PLT COUNT & AUTO Routine 09/21/2019 DIFFERENTIAL 4:17 AM CDT LACTATE DEHYDROGENASE Routine 09/21/2019 (LDH) 4:17 AM CDT URIC ACID Routine 09/21/2019 4:17 AM CDT PHOSPHORUS Routine 09/21/2019 4:17 AM CDT MAGNESIUM Routine 09/21/2019 4:17 AM CDT BASIC METABOLIC PANEL (7) Routine 09/21/2019 4:17 AM CDT CBC W/PLT COUNT & AUTO Routine 09/21/2019 DIFFERENTIAL 4:17 AM CDT TRANSFUSE LEUKO-REDUCED Routine 09/20/2019 AND IRRADIATED RED BLOOD 2:19 PM CDT CELLS PREPARE RBC Routine 09/20/2019 10:23 AM CDT ANTIBODY IDENTIFICATION Routine 09/20/2019 9:59 AM CDT (CELLAVISION MANUAL DIFF) Routine 09/20/2019 4:39 AM CDT CBC W/PLT COUNT & AUTO Routine 09/20/2019 DIFFERENTIAL 4:39 AM CDT TYPE AND SCREEN, Routine 09/20/2019 AUTOMATED 4:39 AM CDT LACTATE DEHYDROGENASE Routine 09/20/2019 (LDH) 4:39 AM CDT URIC ACID Routine 09/20/2019 4:39 AM CDT PHOSPHORUS Routine 09/20/2019 4:39 AM CDT MAGNESIUM Routine 09/20/2019 4:39 AM CDT BASIC METABOLIC PANEL (7) Routine 09/20/2019 4:39 AM CDT CBC W/PLT COUNT & AUTO Routine 09/20/2019 DIFFERENTIAL 4:39 AM CDT ECHOCARDIOGRAM REPORT - 09/19/2019 SCAN 9:20 PM CDT IR TUNNELED DIALYSIS Routine 09/19/2019 CATHETER 6:35 PM CDT ECG 12-LEAD Routine 09/19/2019 3:24 PM CDT 2D ECHO W/ DOPPLER Routine 09/19/2019 (CW/PW/COLOR) 2:31 PM CDT (CELLAVISION MANUAL DIFF) Routine 09/19/2019 1:12 PM CDT CBC W/PLT COUNT & AUTO Routine 09/19/2019 DIFFERENTIAL 1:12 PM CDT PT/APTT Routine 09/19/2019 1:12 PM CDT MAGNESIUM Routine 09/19/2019 1:12 PM CDT HEPATIC FUNCTION PANEL Routine 09/19/2019 1:12 PM CDT COMPREHENSIVE METABOLIC Routine 09/19/2019 PANEL 1:12 PM CDT CBC W/PLT COUNT & AUTO Routine 09/19/2019 DIFFERENTIAL 1:12 PM CDT REPORT OF PROCEDURE - 09/17/2019 ENDOSCOPY SCAN 2:41 PM CDT TRANSFUSION SERVICE 09/16/2019 REPORT - SCAN 6:02 PM CDT PREPARE LEUKO-REDUCED AND Routine 09/15/2019 IRRADIATED PLATELETS 11:54 PM CDT TRANSFUSION SERVICE 09/15/2019 REPORT - SCAN 6:02 PM CDT TRANSFUSE LEUKO-REDUCED Routine 09/14/2019 AND IRRADIATED PLATELETS 3:20 PM CDT ECG 12-LEAD Routine 09/14/2019 11:22 AM CDT ECG 12-LEAD Routine 09/14/2019 11:22 AM CDT Procedure Note - Interface, External Ris In - 09/15/2019 4:24 PM CDT Ventricula r Rate 70 BPM Atrial Rate 70 BPM P-R Interval 174 ms QRS Duration 70 ms Q-T Interval 394 ms QTC Calculatio n(Bazett) 425 ms P [place] 59 degrees R [place] 43 degrees T [place] 42 degrees Normal sinus rhythm Cannot rule out Anterior infarct (cited on or before 0) Abnormal ECG When compared with ECG of 0 11:20, No significan t change was found ECG 12-LEAD Routine 09/14/2019 11:20 AM CDT Procedure Note - Interface, External Ris In - 09/15/2019 4:24 PM CDT Ventricula r Rate 66 BPM Atrial Rate 66 BPM P-R Interval 178 ms QRS Duration 68 ms Q-T Interval 396 ms QTC Calculatio n(Bazett) 415 ms P [place] 63 degrees R [place] 44 degrees T [place] 46 degrees Normal sinus rhythm Cannot rule out Anterior infarct , age undetermin ed Abnormal ECG No previous ECGs available ECG 12-LEAD STAT 09/14/2019 11:20 AM CDT XR CHEST 1 VIEW STAT 09/14/2019 PORTABLE/BEDSIDE 11:18 AM CDT (CELLAVISION MANUAL DIFF) STAT 09/14/2019 11:16 AM CDT CBC W/PLT COUNT & AUTO STAT 09/14/2019 DIFFERENTIAL 11:16 AM CDT CBC W/PLT COUNT & AUTO STAT 09/14/2019 DIFFERENTIAL 11:16 AM CDT TYPE AND SCREEN, STAT 09/14/2019 AUTOMATED 11:00 AM CDT D-DIMER STAT 09/14/2019 11:00 AM CDT BASIC METABOLIC PANEL (7) STAT 09/14/2019 11:00 AM CDT HEPATIC FUNCTION PANEL STAT 09/14/2019 11:00 AM CDT LIPASE STAT 09/14/2019 11:00 AM CDT TROPONIN I STAT 09/14/2019 11:00 AM CDT B-TYPE NATRIURETIC FACTOR STAT 09/14/2019 (BNP) 11:00 AM CDT TRANSFUSION SERVICE 09/09/2019 REPORT - SCAN 5:51 PM CDT PREPARE LEUKO-REDUCED RBC STAT 09/08/2019 11:54 PM CDT PREPARE LEUKO-REDUCED STAT 09/08/2019 PLATELETS 11:54 PM CDT TRANSFUSION SERVICE 09/08/2019 REPORT - SCAN 5:52 PM CDT TRANSFUSE LEUKO-REDUCED STAT 09/07/2019 RED BLOOD CELLS 11:14 PM CDT TRANSFUSE LEUKO-REDUCED STAT 09/07/2019 PLATELETS 6:08 PM CDT ABORH, MANUAL STAT 09/07/2019 2:59 PM CDT PT/APTT STAT 09/07/2019 2:38 PM CDT (CELLAVISION MANUAL DIFF) Routine 09/07/2019 2:37 PM CDT CBC W/PLT COUNT & AUTO STAT 09/07/2019 DIFFERENTIAL 2:37 PM CDT FLOW CYTOMETRY Routine 09/07/2019 2:37 PM CDT TYPE AND SCREEN, STAT 09/07/2019 AUTOMATED 2:37 PM CDT FLOW CYTOMETRY Routine 09/07/2019 REQUISITION 2:37 PM CDT PERIPHERAL BLOOD SMEAR - Routine 09/07/2019 PATHOLOGIST REVIEW 2:37 PM CDT BASIC METABOLIC PANEL (7) STAT 09/07/2019 2:37 PM CDT CBC W/PLT COUNT & AUTO STAT 09/07/2019 DIFFERENTIAL 2:37 PM CDT after 04/18/2019 Results * Transfuse Leuko-Red & Irrad PLT (04/18/2020 7:00 PM AUTOMATIC FABRIC CUTTER) Only the most recent of 24 results within the time period is included. * Prepare Leuko-Red & Irrad PLT (04/18/2020 4:43 PM AUTOMATIC FABRIC CUTTER) Only the most recent of 18 results within the time period is included. Unit ABO O Pos SAFETRACE TX UNIT NUMBER [id number] SAFETRACE TX Status ISSUED SAFETRACE TX Blood Bank PLATELETS SAFETRACE TX Product PRODUCT CODE [id number] SAFETRACE TX Unit ABO O Pos SAFETRACE TX UNIT NUMBER [id number] SAFETRACE TX Status ISSUED SAFETRACE TX Blood Bank PLATELETS SAFETRACE TX Product PRODUCT CODE [id number] SAFETRACE TX Specimen Blood Performing Organization Address City/State/Zipcode Ph one Number [employer] [place] * Manual Differential (04/18/2020 2:49 PM AUTOMATIC FABRIC CUTTER) Only the most recent of 78 results within the time period is included. % Neutros 1 % [facility] % Lymphs 87 % [facility] % Monos 1 % [facility] % Atypical 11 (H) 0 - 0 % [facility] # Neutros 0.00 (L) 1.56 - 6.13 K/ul [facility] # Lymphs 0.09 (L) 1.18 - 3.74 K/ul [facility] # Monos 0.00 (L) 0.24 - 0.36 K/uL [facility] # Atypical 0.01 (H) 0.00 - 0.00 K/uL [facility] Total Counted 100 [facility] WBC Morphology Normal [facility] Platelet Normal [facility] Anisocytosis 1+ few [facility] Macrocytes 1+ few [facility] Tear Drop Cells 1+ few [facility] Platelet Conc Decreased [facility] Specimen Blood Narrative Performed At Mental Health Coordinator ID - [id number] [facility] Performing Organization Address City/[facility] Ph one Number [place] [phone] [place] [address] * Type and screen, automated ([facility] and [facility] only) (04/18/2020 2:49 PM [employer]) Only the most recent of 24 results within the time period is included. ABO/RH O POSITIVE [facility] Ab Scrn NEGATIVE [facility] Specimen Blood Performing Organization Address City/[facility] Ph one Number [place] [address] [phone] [place] [address] * PT/aPTT (04/18/2020 2:49 PM [employer]) Only the most recent of 5 results within the time period is included. Protime 12.9 11.9 - 14.2 seconds [facility] INR 1.00 <=5.90 [facility] PTT 28.0 22.5 - 36.0 seconds [facility] Specimen Blood Narrative Performed At Effective 10/25/2018: PT Reference Range Change [facility] New: 11.9-14.2 Previous: 11.7-14.7 [facility] [place] TER RECOMMENDED COUMADIN/WARFARIN INR THERA PY RANGES STANDARD DOSE: 2.0-3.0 Includes: PROP HYLAXIS for venous thrombosis, systemic embolization; TREATMENT for venous thro mbosis and/or pulmonary embolus. HIGH RISK: Target INR is 2.5-3.5 for pa tients wiht mechanical heart valves. Performing Organization Address [facility] one Number [address] [facility] * CBC with platelet count + automated diff (04/18/2020 2:49 PM [employer]) Only the most recent of 113 results within the time period is included. WBC 0.1 (LL) 3.5 - 10.5 K/L [facility] RBC 2.63 (L) 3.93 - 5.22 M/L [facility] Hemoglobin 8.9 (L) 11.2 - 15.7 GM/DL [facility] Hematocrit 27.2 (L) 34.1 - 44.9 % [facility] MCV 103.4 (H) 79.4 - 94.8 fL [facility] MCH 33.8 (H) 25.6 - 32.2 pg [facility] MCHC 32.7 32.2 - 35.5 GM/DL [facility] RDW 15.5 (H) 11.7 - 14.4 % [facility] Platelets 2 (LL) 150 - 450 K/CU MM [facility] MPV Comment: Unable to report due [facility] to abnormal Platelet [facility] population distribution. [facility] nRBC 0 0 - 0 /100 WBC [facility] Specimen Blood Performing Organization Address City/[facility] one Number [address] [facility] * Basic Metabolic Panel (04/18/2020 2:49 PM [employer]) Only the most recent of 80 results within the time period is included. Sodium 139 136 - 145 meq/L [facility] Potassium 3.8 3.5 - 5.1 meq/L [facility] Chloride 106 98 - 107 meq/L [facility] CO2 24 22 - 29 meq/L [facility] BUN 23 (H) 7 - 21 mg/dL [facility] Creatinine 0.74 0.57 - 1.25 mg/dL [facility] Glucose 106 (H) 70 - 105 mg/dL [facility] Calcium 9.2 8.4 - 10.2 mg/dL [facility] EGFR 80Comment: ESTIMATED GFR IS mL/min/1.73 sq m [facility] NOT ACCURATE CREATININE [facility] CLEARANCE IN PREDICTING MEDICAL CENTER GLOMERULAR FILTRATION RATE. ESTIMATED GFR IS NOT APPLICABLE FOR DIALYSIS PATIENTS. Specimen Blood Narrative Performed At Mental Health Coordinator ID - ADMIN [facility] Performing Organization Address City/State/Zipcode Ph one Number [address] [facility] MED[facility] CENTER * Comprehensive metabolic panel (04/13/2020 5:22 AM AUTOMATIC FABRIC CUTTER) Only the most recent of 32 results within the time period is included. Protein, Total 6.1 6.0 - 8.3 gm/dL [facility] Albumin 3.9 3.5 - 5.0 g/dL [facility] Alkaline 79 40 - 150 U/L [facility] Total Bilirubin 0.8 0.2 - 1.2 mg/dL [facility] Sodium 139 136 - 145 meq/L [facility] Potassium 4.1 3.5 - 5.1 meq/L [facility] Chloride 106 98 - 107 meq/L [facility] CO2 26 22 - 29 meq/L [facility] BUN 17 7 - 21 mg/dL [facility] Creatinine 0.58 0.57 - 1.25 mg/dL [facility] Glucose 106 (H) 70 - 105 mg/dL [facility] Calcium 9.3 8.4 - 10.2 mg/dL [facility] AST 29 5 - 34 U/L [facility] ALT 30 6 - 55 U/L [facility] EGFR 106Comment: ESTIMATED GFR IS mL/min/1.73 sq m [facility] NOT ACCURATE CREATININE [facility] CLEARANCE IN PREDICTING [facility] CENTER GLOMERULAR FILTRATION RATE. ESTIMATED GFR IS NOT APPLICABLE FOR DIALYSIS PATIENTS. Specimen Blood Narrative Performed At Mental Health Coordinator ID - GEOFFREYASI [facility] Performing Organization Address City/State/Zipcode Ph one Number [address] [facility] [facility]ENTER * SARS-CoV2/RT-PCR (Asymptomatic ONLY) (04/11/2020 3:14 PM AUTOMATIC FABRIC CUTTER) Only the most recent of 5 results within the time period is included. SARS-COV2/RT-PC Negative Not Detected, [facility] R Negative, See [facility] external report for [facility] CENTER linked test SARS-COV-2 [facility] MALCOM [facility] PERFORMING LAB [facility] Specimen Other - Nasopharyngeal wall structure (body structure) Narrative Performed At Negative result for this test determine s that SARS-CoV-2 RNA was not present in [facility] the specimen above the Limit of Detecti on (LOD). However, Negative results do [facility] not preclude SARS-CoV-2 infection and s hould not be used as the sole basis for treatment or patient management decisio ns. Negative results must be combined with clinical observations, patient his tory, and epidemiological information. A false negative result may occur if a sp ecimen is improperly collected, transported or handled. A false negat neetu result should be considered if patient's recent exposures or clinical presentation indicate that COVID-19 (SARS-CoV-2) is likely and diagnostic t ests for other causes of illness are negative. Re-testing should be consid ered in cases of suspected false negatives. The limit of detection for this assay i s 800 copies/mL. This SARS CoV-2 test is a real-time RT- PCR test intended for the qualitative detection of nucleic acid from SARS-CoV -2 in a nasopharyngeal swab specimen collected from individuals suspected of COVID-19 by their healthcare provider. This test has not been Food and Drug Ad ministration (FDA) cleared or approved. This is a modified version of an appr cassidy Emergency Use Authorization (EUA) and is in the process of review by the FDA. Once authorized by the FDA, the issued EUA will be effective until the declaration that circumstances exist justifying the authorization of the sarah rgency use of in vitro diagnostic tests for detection and/or diagnosis of COVID -19 is terminated under Section 564(b)(2) of the Act or the EUA is revoked under Section 564(g) of the Act. Fact Sheet for Healthcare Providers: https://www.[facility]/sites/default/files/product/documents/Fact_Sheet_HC_Provi xloj_Ayzp_AOCK-GiY-0.pdf Fact Sheet for Healthcare Patients: https://www.[facility]/sites/default/files/product/documents/Fact_Sheet_Patients _Znlb_WYHL-EfD-7.pdf Performing Laboratory: [address] [place] [address] Performing Organization Address City/[facility] Ph one Number [place] [address] [facility] * Catheter Tip Culture (04/07/2020 11:31 AM AUTOMATIC FABRIC CUTTER) Result No growth [facility] Specimen Other - Catheter tip, device (physical object) Performing Organization Address [facility] Ph one Number [place] [address] [facility] * CMV PCR, quantitative (04/07/2020 5:38 AM AUTOMATIC FABRIC CUTTER) Only the most recent of 2 results within the time period is included. CMV DNA Viral Comment: See scanned report. [facility] CMV DNA Viral Comment: See scanned report. [facility] Specimen Blood Narrative Performed At This result has an attachment that is n ot available. Performing Organization Address City/[facility] Ph one Number [facility] [address] [place], [place] [address] [facility] * Lactic acid, venous (04/06/2020 1:04 PM AUTOMATIC FABRIC CUTTER) Only the most recent of 7 results within the time period is included. Lactate, Venous 1.09 0.50 - 2.20 mmol/L [facility] Specimen Blood Narrative Performed At Mental Health Coordinator ID - IVANA Christopher [facility] Performing Organization Address [facility] one Number [facility] [address] [place], [place] [address] [facility] * ECG 12 lead (04/05/2020 11:08 PM AUTOMATIC FABRIC CUTTER) Only the most recent of 6 results within the time period is included. Specimen Narrative Performed At Ventricular Rate 124 BPM [facility] Atrial Rate 124 BPM P-R Interval 154 ms QRS Duration 68 ms Q-T Interval 288 ms QTC Calculation(Bazett) 413 ms P Torreon 44 degrees R Torreon 28 degrees T Torreon 66 degrees Sinus tachycardia Otherwise normal ECG When compared with ECG of 06-FEB-2020 2 0:34, No significant change was found Confirmed by MD ARTHUR JOSEPH P ([id number]) on 04/07/2020 6:39:37 AM Procedure Note Interface, External Ris In - 04/07/2020 6:39 AM AUTOMATIC FABRIC CUTTER Ventricular Rate 124 BPM Atrial Rate 124 BPM P-R Interval 154 ms QRS Duration 68 ms Q-T Interval 288 ms QTC Calculation(Bazett) 413 ms P Torreon 44 degrees R Torreon 28 degrees T Torreon 66 degrees Sinus tachycardia Otherwise normal ECG When compared with ECG of 06-FEB-2020 20:34, No significant change was found Confirmed by MD ARTHUR JOSEPH P ([id number]) on 04/07/2020 6:39:37 AM Performing Organization Address [facility] one Number GE MUSE * POCT-HEMATOCRIT (04/05/2020 9:59 PM AUTOMATIC FABRIC CUTTER) [facility] POC-Hematocrit 32 (L)Comment: : 36 - 45 % [facility] Mental Health Coordinator/Powerhouse Engineer ID = [id number] [id number] for [facility] Specimen Blood Performing Organization Address [facility] one [address] [facility] * POCT-HEMOGLOBIN (04/05/2020 9:59 PM AUTOMATIC FABRIC CUTTER) [facility] POC-Hemoglobin 10.9 (L) 12.0 - 15.0 g/dL [facility] Comment: HEALTH BCM : TESTED AT [address], [address] : Mental Health Coordinator/Powerhouse Engineer ID = [id number] for [facility] Specimen Blood Performing Organization Address [facility] one [address] 0 [phone] [place] [address] * POCT-GLUCOSE (04/05/2020 9:59 PM AUTOMATIC FABRIC CUTTER) [facility] POC-Glucose 111 (H) 70 - 110 mg/dL [facility] Comment: HEALTH BCM : TESTED AT [address], [address] : Mental Health Coordinator/Powerhouse Engineer ID = [id number] for [facility] Specimen Blood Performing Organization Address [facility] one [address] 0 [phone] [place] [address] * POC-Sodium (04/05/2020 9:59 PM AUTOMATIC FABRIC CUTTER) [facility] POC-Sodium 135 135 - 148 meq/L [facility] Comment: HEALTH BCM : TESTED AT [address], [address] : Mental Health Coordinator/Powerhouse Engineer ID = [id number] for [facility] Specimen Blood Performing Organization Address [facility] one [address] [facility] * POC-Potassium (04/05/2020 9:59 PM AUTOMATIC FABRIC CUTTER) [facility] POC-Potassium 5.5 3.6 - 5.5 meq/L [facility] Comment: HEALTH M : TESTED AT [address], [address] : Mental Health Coordinator/Powerhouse Engineer ID = [id number] for [facility] SIMMONS Specimen Blood Performing Organization Address City/[facility] Ph one Number [address] [facility] * POC-Calcium ionized (04/05/2020 9:59 PM AUTOMATIC FABRIC CUTTER) Pathologist [facility] POC-Calcium 1.09 (L) 1.12 - 1.27 mmol/L [facility] Ionized Comment: HEALTH [facility] : TESTED AT [address], [address] : Mental Health Coordinator/Powerhouse Engineer ID = [id number] for ELIZABETH SIMMONS Specimen Blood Performing Organization Address City/[facility] Ph one Number [address] [facility] * POC-Blood gases, arterial (04/05/2020 9:59 PM AUTOMATIC FABRIC CUTTER) Pathologist [facility] Temp. 99.9 [facility] Celsius-POC [facility] FIO2-POC 100 [facility] pH, 7.507 (H) 7.350 - 7.450 [facility] Arterial-POC [facility] PCO2, 28.0 (L) 35.0 - 45.0 mm Hg [facility] Arterial-POC [facility] PO2, 228.0 (H) 80.0 - 90.0 mm Hg [facility] Arterial-POC [facility] SO2, 100.0 (H) 96.0 - 97.0 % [facility] Arterial-POC [facility] HCO3, 22.0 21.0 - 29.0 meq/L [facility] Arterilal-POC [facility] BE, -1.0 -2.0 - 3.0 meq/L [facility] Arterial-POC Comment: HEALTH BCM : TESTED AT [address], [address] : Mental Health Coordinator/Powerhouse Engineer ID = [id number] for ELIZAB[facility] SIMMONS Specimen Blood Performing Organization Address [facility] one [address] * Lactic Acid, Arterial (04/05/2020 9:59 PM AUTOMATIC FABRIC CUTTER) Lactate, Art 4.0 (HH)Comment: Specimen 0.5 - 2.2 mmol/L [facility] slightly hemolyzed [facility] Specimen Blood, Arterial Narrative Performed At Mental Health Coordinator ID - DB [facility] Performing Organization Address [facility] one Number [place] [address] [place] [address] * Blood Culture - Routine (Left Venipuncture) (04/05/2020 9:55 PM AUTOMATIC FABRIC CUTTER) Only the most recent of 24 results within the time period is included. Result No growth in 5 days [facility] Specimen Blood - Entire left upper arm (body structure) Performing Organization Address [facility] one [address] * XR chest 1 view portable / bedside (04/05/2020 9:36 PM AUTOMATIC FABRIC CUTTER) Only the most recent of 10 results within the time period is included. Specimen Narrative Performed At FINAL REPORT [facility] RAD, CHEST, 1 VIEW, NON DEPT INDICATION: SOB COMPARISON: 04/03/2020 FINDINGS: Portable frontal view of the chest. IMPRESSION: Support Lines: Stable right PICC Lungs and pleura: Unchanged bandlike at electasis in the right midlung and left upper lobe. No consolidation o r sizable effusion. No pneumothorax. Heart and mediastinum: Stable contours. Additional findings: None. Signed: Tayler More MD Report Verified Date/Time: 04/05/2020 22:56:51 Procedure Note Interface, External Ris In - 04/05/2020 10:59 PM AUTOMATIC FABRIC CUTTER FINAL REPORT RAD, CHEST, 1 VIEW, NON DEPT INDICATION: SOB COMPARISON: 04/03/2020 FINDINGS: Portable frontal view of the chest. IMPRESSION: Support Lines: Stable right PICC Lungs and pleura: Unchanged bandlike atelectasis in the right midlung and left upper lobe. No consolidation or sizable effusion. No pneumothorax. Heart and mediastinum: Stable contours. Additional findings: None. Signed: Tayler More MD Report Verified Date/Time: 04/05/2020 22:56:51 Performing Organization Address City/State/Zipcode Ph one Number [phone] * CT sinus with iv contrast (04/04/2020 9:25 PM AUTOMATIC FABRIC CUTTER) Specimen Narrative Performed At FINAL REPORT [phone] EXAM: CT, SINUS, WITH IV CONTRAST CLINICAL INDICATION: Sinusitis. TECHNIQUE: Helical CT examination of th e paranasal sinuses with IV contrast. Axial, sagittal and coronal r eformations were generated. This exam was performed according to [facility] departmental dose-optimization program, which includ es automated exposure control, adjustment of the mA and/or kV accordin g to patient size and/or use of iterative reconstruction technique.E SRC.1.1.1 COMPARISON: 03/10/2020 FINDINGS: Extra-sinus Soft Tissues: Normal Paranasal Sinuses: Predominately bushra r. Previous mucosal thickening that was present within the bilateral e thmoidal air cells and left sphenoid sinus has significantly improv ed. Lamina Papyracea: Intact Cribriform Plate, Lateral Lamella and E thmoid Roofs: Intact Retroantral Fat: Normal Premaxillary Soft Tissues: Normal Nasal Cavity: Clear. Nasopharynx: Normal Included Intracranial Structures: Mild intracranial ICA atherosclerotic calcifications. Included Orbits: Normal Tympanomastoid Cavities: Clear IMPRESSION: No significant paranasal sinus disease. Significant interval decreased mucosal thickening compared t o prior CT. Signed: Tayler More MD Report Verified Date/Time: 04/05/2020 02:04:23 Procedure Note Interface, External Ris In - 04/05/2020 2:07 AM AUTOMATIC FABRIC CUTTER FINAL REPORT EXAM: CT, SINUS, WITH IV CONTRAST CLINICAL INDICATION: Sinusitis. TECHNIQUE: Helical CT examination of the paranasal sinuses with IV contrast. Axial, sagittal and coronal reformations were generated. This exam was performed according to our departmental dose-optimization program, which includes automated exposure control, adjustment of the mA and/or kV according to patient size and/or use of iterative reconstruction technique.[facility].1.1.1 COMPARISON: 03/10/2020 FINDINGS: Extra-sinus Soft Tissues: Normal Paranasal Sinuses: Predominately clear. Previous mucosal thickening that was present within the bilateral ethmoidal air cells and left sphenoid sinus has significantly improved. Lamina Papyracea: Intact Cribriform Plate, Lateral Lamella and Ethmoid Roofs: Intact Retroantral Fat: Normal Premaxillary Soft Tissues: Normal Nasal Cavity: Clear. Nasopharynx: Normal Included Intracranial Structures: Mild intracranial ICA atherosclerotic calcifications. Included Orbits: Normal Tympanomastoid Cavities: Clear IMPRESSION: No significant paranasal sinus disease. Significant interval decreased mucosal thickening compared to prior CT. Signed: Tayler More MD Report Verified Date/Time: 04/05/2020 02:04:23 Performing Organization Address City/State/Zipcode Ph one Number GE RIS * Urinalysis w/Microscopic + Reflex to Culture (04/03/2020 8:10 PM AUTOMATIC FABRIC CUTTER) Only the most recent of 5 results within the time period is included. Color, UA Yellow [facility] Clarity, UA Clear [facility] Specific 1.023 1.001 - 1.035 [facility] [place] pH, UA 5.5 5.0 - 8.0 [facility] Protein, UA 10 mg/dL (A) Negative [facility] Glucose, UA Negative Negative [facility] Ketones, UA Trace (A) Negative [facility] Bilirubin, UA Negative Negative [facility] Blood, UA Negative Negative [facility] Nitrite, UA Negative Negative [facility] Leukocytes, UA Trace (A) Negative [facility] Urobilinogen, 0.2 0.2 - 1.0 mg/dL [facility] RBC, UA <1 /HPF [facility] WBC, UA 2 /HPF [facility] Mucus Few [facility] Squam Epithel, <1 /HPF [facility] Specimen Source [facility] Specimen Urine Narrative Performed At Mental Health Coordinator ID - [auto] [facility] Mental Health Coordinator ID - tech [facility] Performing Organization Address City/State/Zipcode Ph one Number [facility] [address] [place], [place] [address] MED[facility] CENTER * XR chest 2 views (04/03/2020 5:39 PM AUTOMATIC FABRIC CUTTER) Only the most recent of 2 results within the time period is included. Specimen Narrative Performed At FINAL REPORT [facility] PA and Lateral views of the chest dated 04/03/2020 COMPARISON: March 08, 2020 Clinical information: FEVER Comment: Heart is normal in size. Pul monary vasculature is unremarkable. Subsegmental atelectasis is seen in the left upper lobe and right mid lung. The rest of the maria [place] carmen gs are clear. A skinfold is seen in the right lower chest simulatin g pneumothorax. No pulmonary infiltrate or pleural effusion is prese nt. Right PICC line remains in place. Impression: No pneumonia. Signed: Tayler Gallego MD Report Verified Date/Time: 04/03/2020 18:54:14 Reading Location: [facility] B1 C013W Consult Reading Room Procedure Note Interface, External Ris In - 04/03/2020 6:56 PM AUTOMATIC FABRIC CUTTER FINAL REPORT PA and Lateral views of the chest dated 04/03/2020 COMPARISON: March 08, 2020 Clinical information: FEVER Comment: Heart is normal in size. Pulmonary vasculature is unremarkable. Subsegmental atelectasis is seen in the left upper lobe and right mid lung. The rest of the lungs are clear. A skinfold is seen in the right lower chest simulating pneumothorax. No pulmonary infiltrate or pleural effusion is present. Right PICC line remains in place. Impression: No pneumonia. Signed: Tayler Gallego MD Report Verified Date/Time: 04/03/2020 18:54:14 Reading Location: [facility] C013W Consult Reading Room Performing Organization Address [facility] one Number GE [facility] * Voriconazole Level (03/12/2020 5:04 AM CDT) Only the most recent of 2 results within the time period is included. Pathologist [facility] Voriconazole, 1.0 1 - 6 g/mL [employer] [facility] by Comment: LC-MS/MS REFERENCE INTERVAL - Therapeutic Range (trough): 1.0-6.0 g/mL Toxic Level: Greater than 6.0 g/mL INTERPRETIVE DATA - Toxic concentrations may cause nausea, vomiting, peripheral edema and elevated serum liver enzymes. [email or web address] Compliance Statement B: This test was developed and its performance characteristics determined by [employer]. The U.S. Food and Drug Administration has not approved or cleared this test; however, FDA clearance or approval is not currently required for clinical use. The results are not intended to be used as the sole means for clinical diagnosis or patient management decisions. Specimen Blood Narrative Performed At This result has an attachment that is n ot available. Performing Organization Address [facility] Ph one Number [facility] [address] [place] [address] * Prepare RBC (03/10/2020 11:54 PM CDT) Only the most recent of 7 results within the time period is included. Unit ABO O Pos SAFETRACE TX UNIT NUMBER [id number] SAFETRACE TX Status TX_TIMEINCHART SAFETRACE TX Blood Bank RED BLOOD CELLS SAFETRACE TX Product PRODUCT CODE [id number] SAFETRACE TX Unit ABO O Pos SAFETRACE TX UNIT NUMBER [id number] SAFETRACE TX Status READY SAFETRACE TX Blood Bank RED BLOOD CELLS SAFETRACE TX Product PRODUCT CODE [id number] SAFETRACE TX CROSSMATCH COMPATIBLE SAFETRACE TX CROSSMATCH COMPATIBLE SAFETRACE TX Performing Organization Address [facility] one Number [place] * Vancomycin level, trough (03/10/2020 9:08 PM CDT) Only the most recent of 9 results within the time period is included. Vancomycin Tr 11.9 10.0 - 20.0 ug/mL [facility] Specimen Blood Narrative Performed At Mental Health Coordinator ID - DB [facility] Performing Organization Address [facility] one Number [facility] [address] [place], [place] [address] [facility] * fungitell (03/10/2020 4:37 AM CDT) Only the most recent of 4 results within the time period is included. Pathologist [facility] Scan Result <31 [facility] Specimen Blood Narrative Performed At This result has an attachment that is n ot available. Performing Organization Address [facility] one Number [facility] [address] [place] [address] * Aspergillus galactomannan antigen (03/10/2020 4:37 AM CDT) Only the most recent of 3 results within the time period is included. Pathologist [facility] Aspergillus <0.50 [facility] Index Value [facility] Aspergillus NOT DETECTED [facility] Antigen Comment: DIAGNOSTIC REFERENCE RANGE: <0.50, NOT INCORPORATED DETECTED A negative result does not exclude invasive aspergillosis. Follow-up testing may be indicated for high-risk patients. Specimen Blood Narrative Performed At Performing Lab [facility] *[facility] [employer] [address] [place] [address] Fly Calle MD Performing Organization Address [facility] one Number [facility] [place] [place] [facility] [id number] [place] [address] * CT maxillofacial with IV contrast (03/10/2020 3:12 AM CDT) Only the most recent of 3 results within the time period is included. Specimen Narrative Performed At FINAL REPORT [facility] EXAM: CT maxillofacial CT with contrast CLINICAL HISTORY: Unlisted Reason for E xam. Neutropenic patient with sinus pain. TECHNIQUE: CT maxillofacial area was pe rformed with intravenous contrast administration. This exam wa s performed according to our departmental dose optimization program which includes automated exposure control, adjustment of the mA and/or kV according to patient's size and/or use of iterative reconstructive technique. COMPARISON: CT maxillofacial area 02/04. FINDINGS: The paranasal sinuses are well-develope d. The right frontal sinus is smaller than the left. The sino-orbital and sino-cranial junct ions are intact. There is mild mucosal thickening of the bilateral ethmoid sinuses, sphenoid and maxillary sinuses. There i s a small polyp or retention cyst in the left ethmoid sinus. The clare ateral sphenoethmoidal recesses are effaced by mucosal disease . The bilateral ostiomeatal units are patent. There are no parana hina sinus air-fluid levels. The nasal cavity and nasopharynx are un remarkable. There is no abnormal enhancement. The vessels enhance normally. The orbits and visualized intracranial compartment is unremarkable. The mastoid air cells are clear. IMPRESSION: Paranasal sinus mucosal disease as desc ribed. Signed: Keven Aleman MD Report Verified Date/Time: 03/10/2020 04:12:39 Procedure Note Interface, External Ris In - 03/10/2020 4:14 AM CDT FINAL REPORT EXAM: CT maxillofacial CT with contrast CLINICAL HISTORY: Unlisted Reason for Exam. Neutropenic patient with sinus pain. TECHNIQUE: CT maxillofacial area was performed with intravenous contrast administration. This exam was performed according to our departmental dose optimization program which includes automated exposure control, adjustment of the mA and/or kV according to patient's size and/or use of iterative reconstructive technique. COMPARISON: CT maxillofacial area 02/05/2020. FINDINGS: The paranasal sinuses are well-developed. The right frontal sinus is smaller than the left. The sino-orbital and sino-cranial junctions are intact. There is mild mucosal thickening of the bilateral ethmoid sinuses, sphenoid and maxillary sinuses. There is a small polyp or retention cyst in the left ethmoid sinus. The bilateral sphenoethmoidal recesses are effaced by mucosal disease. The bilateral ostiomeatal units are patent. There are no paranasal sinus air-fluid levels. The nasal cavity and nasopharynx are unremarkable. There is no abnormal enhancement. The vessels enhance normally. The orbits and visualized intracranial compartment is unremarkable. The mastoid air cells are clear. IMPRESSION: Paranasal sinus mucosal disease as described. Signed: Keven Aleman MD Report Verified Date/Time: 03/10/2020 04:12:39 Performing Organization Address [facility] one Number GE RIS * Fungus culture, blood (Isolator) (03/09/2020 1:18 PM CDT) Only the most recent of 3 results within the time period is included. Result No fungus isolated [facility] Specimen Blood - Entire left upper arm (body structure) Narrative Performed At [facility] Performing Organization Address [facility] one Number [address] [facility] * Prothrombin time/INR (03/09/2020 6:51 AM CDT) Only the most recent of 4 results within the time period is included. Protime 13.8 11.9 - 14.2 seconds [facility] INR 1.09 <=5.90 [facility] Specimen Blood Narrative Performed At Effective 10/25/2018: PT Reference Range Change [facility] New: 11.9-14.2 Previous: 11.7-14.7 [facility] [place] TER RECOMMENDED COUMADIN/WARFARIN INR THERA PY RANGES STANDARD DOSE: 2.0-3.0 Includes: PROP HYLAXIS for venous thrombosis, systemic embolization; TREATMENT for venous thro mbosis and/or pulmonary embolus. HIGH RISK: Target INR is 2.5-3.5 for pa tients wiht mechanical heart valves. Performing Organization Address [facility] one Number [address] 0 [phone] [place] [address] * Phosphorus (03/09/2020 6:51 AM CDT) Only the most recent of 12 results within the time period is included. Phosphorus 2.8 2.3 - 4.7 mg/dL [facility] Specimen Blood Narrative Performed At Mental Health Coordinator ID - [facility] Performing Organization Address [facility] Ph one Number [address] 0 [phone] [place] [address] * Magnesium (03/09/2020 6:51 AM CDT) Only the most recent of 51 results within the time period is included. Magnesium 1.9 1.6 - 2.6 mg/dL [facility] Specimen Blood Narrative Performed At Mental Health Coordinator ID - [facility] Performing Organization Address [facility] one Number [address] 0 [phone] * Hepatic function panel (03/09/2020 6:51 AM CDT) Only the most recent of 7 results within the time period is included. Protein, Total 6.4 6.0 - 8.3 gm/dL [facility] Albumin 3.8 3.5 - 5.0 g/dL [facility] Total Bilirubin 0.8 0.2 - 1.2 mg/dL [facility] Bilirubin, 0.4 0.1 - 0.5 mg/dL [facility] Alkaline 79 40 - 150 U/L [facility] AST 13 5 - 34 U/L [facility] ALT 15 6 - 55 U/L [facility] Specimen Blood Narrative Performed At [facility] Health [facility]inator [facility] Performing Organization [facility] Ph one Number [address] [place], [place] [address] MEDICAL CENTER * Transfuse Leuko-Red RBC (03/09/2020 2:49 AM CDT) Only the most recent of 6 results within the time period is included. * CT abdomen pelvis with IV contrast (03/08/2020 9:40 PM CDT) Only the most recent of 4 results within the time period is included. Specimen Narrative Performed At FINAL REPORT RIS TECHNIQUE: CT of the abdomen and pelvis WITH intravenous contrast and WITHOUT oral contrast. Dose modulation, iterative reconstruction, and/or weight-based adjustment of the m A/kV was utilized to reduce the radiation dose to as low as reasona anaid achievable. INDICATION: Unlisted Reason for Exam FEVER EMESIS. COMPARISON: 01/26/2028 chest, 10/24/2019 CT abdomen/pelvis. FINDINGS: LOWER THORAX: New pleural-based nodular density in the right lower lobe with diameter of 1.2 cm. HEPATOBILIARY: No focal hepatic lesions . Gallbladder is unremarkable. No biliary ductal dilatation. SPLEEN: No splenomegaly. PANCREAS: No focal masses or ductal dil atation. ADRENALS: No adrenal nodules. KIDNEYS/URETERS: No hydronephrosis, sto rubina, or masses. PELVIC ORGANS/BLADDER: Bladder and uter us are unremarkable. No adnexal mass. PERITONEUM/RETROPERITONEUM: No free air or fluid. LYMPH NODES: No lymphadenopathy. VESSELS: Unremarkable. GI TRACT: No distention or wall thicken ing. Normal appendix. BONES AND SOFT TISSUES: No acute osseou s abnormality. Soft tissues are unremarkable.. IMPRESSION: 1. No acute abnormality within the abdo men or pelvis. 2. New 1.2 cm subpleural pulmonary nodu le in the right lower lobe suspicious for infectious/inflammation. Consider follow-up in three months to ensure resolution Signed: Tayler More MD Report Verified Date/Time: 03/08/2020 22:11:58 Procedure Note Interface, External Ris In - 03/08/2020 10:14 PM CDT FINAL REPORT TECHNIQUE: CT of the abdomen and pelvis WITH intravenous contrast and WITHOUT oral contrast. Dose modulation, iterative reconstruction, and/or weight-based adjustment of the mA/kV was utilized to reduce the radiation dose to as low as reasonably achievable. INDICATION: Unlisted Reason for Exam FEVER EMESIS. COMPARISON: 01/26/2028 chest, 10/24/2019 CT abdomen/pelvis. FINDINGS: LOWER THORAX: New pleural-based nodular density in the right lower lobe with diameter of 1.2 cm. HEPATOBILIARY: No focal hepatic lesions. Gallbladder is unremarkable. No biliary ductal dilatation. SPLEEN: No splenomegaly. PANCREAS: No focal masses or ductal dilatation. ADRENALS: No adrenal nodules. KIDNEYS/URETERS: No hydronephrosis, stones, or masses. PELVIC ORGANS/BLADDER: Bladder and uterus are unremarkable. No adnexal mass. PERITONEUM/RETROPERITONEUM: No free air or fluid. LYMPH NODES: No lymphadenopathy. VESSELS: Unremarkable. GI TRACT: No distention or wall thickening. Normal appendix. BONES AND SOFT TISSUES: No acute osseous abnormality. Soft tissues are unremarkable.. IMPRESSION: 1. No acute abnormality within the abdom en or pelvis. 2. New 1.2 cm subpleural pulmonary nodul e in the right lower lobe suspicious for infectious/inflammation. Consider follow-up in three months to ensure resolution Signed: Tayler More MD Report Verified Date/Time: 03/08/2020 22:11:58 Performing Organization Address [facility] one Number GE RIS * Lipase (03/08/2020 3:55 PM CDT) Only the most recent of 2 results within the time period is included. Lipase 108 (H) 8 - 78 U/L [facility] Specimen Blood Narrative Performed At Mental Health Coordinator ID - [facility] Performing Organization Address [facility] one Number [place] [address] MEDICAL CENTER * Creatine Kinase (CK) (03/08/2020 3:55 PM CDT) Only the most recent of 2 results within the time period is included. Total CK 30 29 - 200 U/L [facility] Specimen Blood Narrative Performed At Mental Health Coordinator ID - DB [facility] Performing Organization Address City/State/Zipcode Ph one Number [facility] [address] [place], [place] [address] MEDICAL CENTER * Blood Culture Panel(BioFire) (03/08/2020 3:54 PM CDT) LISTERIA Not detected Not detected [facility] MONOCYTOGENES [facility] STAPHYLOCOCCUS Detected (A) Not detected [facility] Comment: [facility] Coagulase negative [facility] species (CoNS)- methicillin susceptible First-line therapy: Cefazolin or Oxacillin (Oxacillin preferred if FIELD NURSE CASE MANAGER involvement) MecA NOT DETECTED Possible contamination. The likelihood of pathogenicity is increased if the organism is observed in multiple blood cultures obtained from separate venipunctures. Reference Range: Not Detected STAPHYLOCOCCUS Not detected Not detected [facility] AUREUS [facility] Streptococcus Not detected Not detected [facility] STREPTOCOCCUS Not detected Not detected [facility] AGALACTIAE [facility] (GROUP B) [facility] STREPTOCOCCUS Not detected Not detected [facility] PNEUMONIAE [facility] Streptococcus Not detected Not detected [facility] pyogenes (Group [facility] A) [facility] ACINETOBACTER Not detected Not detected [facility] BAUMANNII [facility] HAEMOPHILUS Not detected Not detected [facility] INFLUENZAE [facility] NEISSERIA Not detected Not detected [facility] MENINGITIDIS [facility] ENTEROBACTERIAC Not detected Not detected [facility] EAE [facility] ENTEROBACTER Not detected Not detected [facility] CLOACOE COMPLEX [facility] KLEBSIELLA Not detected Not detected [facility] OXYTOCA [facility] KLEBSIELLA Not detected Not detected [facility] PNEUMONIAE [facility] PROTEUS Not detected Not detected [facility] SERRATIA Not detected Not detected [facility] MARCESCENS [facility] MARYLU Not detected Not detected [facility] ALBICANS [facility] MARYLU Not detected Not detected [facility] GLABRATA [facility] MARYLU KRUSEI Not detected Not detected [facility] MARYLU Not detected Not detected [facility] PARAPSILOSIS [facility] MARYLU Not detected Not detected [facility] TROPICALIS [facility] ESCHERICHIA Not detected Not detected [facility] COLI [facility] METHICILLIN-RES Not detected Not detected [facility] Comment: [facility] Note: Antimicrobial resistance [facility] can occur via multiple mechanisms. A Not Detected result for the FilmArray antimicrobial resistance gene assays does not indicate antimicrobial susceptibility. Subculturing is required for species identification and susceptibility testing of isolates. VANCOMYCIN-RESI [facility] STANCE [facility] CARBAPENEM-RESI [facility] ENTEROCOCCUS Not detected Not detected [facility] PSEUDOMONAS Not detected Not detected [facility] AERUGINOSA [facility] Specimen Blood - Entire left upper arm (body structure) Narrative Performed At Other bacteria and resistance markers not targeted by this PCR panel cannot be [facility] excluded; therefore clinical correlation and follow u p of serology, culture [facility] results, and other molecular studies is required. The results are not intended to be used as the sole means for clinic al diagnosis or patient management decisions. This sample was tested at e [facility] Molecular Diagnostics Laboratory using the TopFloor Blood Cultu re ID Panel. It is FDA cleared and has been verified and approved by the [facility] Molecular Diagnostics Laboratory for clinical use. This laboratory is CLIA-c ertified and [employer] ([employer])-accredited to [facility] m high complexity testing. Performing Organization Address City/State/Zipcode Ph one Number [facility] [address] [place], [place] [address] [facility] * CRITICAL CARE (03/08/2020 3:32 PM CDT) Narrative Performed At Param Benitez MD 0 5:15 PM Critical Care Performed by: Param Benitez MD Authorized by: Param Benitez MD Total critical care time: 68 minutes Critical care was necessary to treat or prevent imminent or life-threatening deterioration of the f ollowing conditions: sepsis. Critical care was time spent personally by me on the following activities: development of treatment plan with tiffani ent or surrogate, discussions with consultants, discussions with primary p rovider, interpretation of cardiac output measurements, evaluation of tiffani ent's response to treatment, examination of patient, obtaining histo ry from patient or surrogate, ordering and performing treatments and interventions, ordering and review of laboratory studies, ordering and rev iew of radiographic studies, pulse oximetry, re-evaluation of patient's co ndition and review of old charts. * Prepare Leuko-Red PLT (03/07/2020 11:54 PM CDT) Only the most recent of 6 results within the time period is included. Unit ABO O Neg [place] [place] UNIT NUMBER [id number] [place] TX Status TX_TIMEINCHART SAFETRACE TX Blood Bank PLATELETS SAFETRACE [place] Product PRODUCT CODE [id number] [place] Specimen Blood Performing Organization Address [facility] one Number [place] * TRANSFUSION SERVICE REPORT - SCAN (03/06/2020 6:05 PM CDT) Only the most recent of 68 results within the time period is included. Narrative Performed At This result has an attachment that is n ot available. * Manual Differential (03/04/2020 12:28 PM CDT) Only the most recent of 18 results within the time period is included. % Neutros 7 % [facility] (manual) [facility] % Lymphs 93 % [facility] (manual) [facility] # Neutros 0.01 (L) 1.80 - 8.00 K/L [facility] (manual) [facility] # Lymphs 0.09 (L) 1.48 - 4.50 K/L [facility] (manual) [facility] Total Counted 46 [facility] Platelet Normal [facility] Morphology [facility] RBC Morphology Normal [facility] Atypical Lymphs Present [facility] Specimen Blood Performing Organization Address City/[facility] Ph one Number [facility] [address] [place], [place] [address] MEDICAL CENTER * TSH/Free T4 If Indicated (02/26/2020 3:58 AM CDT) TSH 0.953 0.350 - 4.940 uIU/mL [facility] Specimen Blood Narrative Performed At Mental Health Coordinator ID - WU Polo [facility] Performing Organization Address [facility] one [address] [phone] [place] [address] * Uric acid (02/25/2020 3:53 AM CDT) Only the most recent of 10 results within the time period is included. Uric Acid 3.2 2.6 - 7.2 mg/dL [facility] Specimen Blood Narrative Performed At Mental Health Coordinator ID - WU L [facility] Performing Organization Address [facility] one [address] [phone] [address] * Prepare Leuko-Red & Irrad RBC (02/07/2020 11:54 PM CDT) Only the most recent of 10 results within the time period is included. Unit ABO O Pos SAFETRACE TX UNIT NUMBER [id number] SAFETRACE TX Status TX_TIMEINCHART SAFETRACE TX Blood Bank RED BLOOD CELLS SAFETRACE TX Product PRODUCT CODE [id number] SAFETRACE TX CROSSMATCH COMPATIBLE SAFETRACE TX Specimen Other Performing Organization Address [facility] one Number [place] * Transfuse Leuko-Red & Irrad RBC (02/06/2020 1:33 PM CDT) Only the most recent of 11 results within the time period is included. * CRITICAL CARE (02/05/2020 4:20 PM CDT) Narrative Performed At Nakita Lincoln DO 02/05/2020 5: 06 PM Critical Care Performed by: Nakita Lincoln DO Authorized by: aNkita Lincoln DO Total critical care time: 45 minutes Critical care time was exclusive of sep arately billable procedures and treating other patients. Critical care was necessary to treat or prevent imminent or life-threatening deterioration of the f ollowing conditions: circulatory failure. * CT chest without IV contrast (01/26/2020 11:58 AM CDT) Only the most recent of 2 results within the time period is included. Specimen Narrative Performed At FINAL REPORT [employer] RIS History: Pneumonia. TECHNIQUE: Helical CT of the chest was performed w ithout contrast utilizing multiple windows, sagittal and coronal reformations. This exam was performed according to r departmental dose optimization program which includes aut omated exposure control, adjustment of the mA and/or KV accordin g to the patient's size and/or use of iterative reconstruction techniq ue. FINDINGS: Correlation is made with tiffani ent's previous study performed November 26, 2019. Minimal atherosclerotic calcification o f the aorta is again noted. The heart, mediastinum and great vessel s are otherwise unremarkable in this noncontrast study. A right uppe r extremity PICC line is noted its tip terminates in the superior vena cava. No mediastinal or hilar adenopathy. Thyroid gland is unremarkab le. Central airways are patent. Focal opacity in the upper lobe s has improved significantly since the previous study. Only a small amount of residual opacity is present. No new pulmonary parenchymal a bnormalities. No effusions. No suspicious pulmonary nodules or masses. Images obtained through the upper abdomen are unremarkable. Bones a re unremarkable. IMPRESSION: 1. Improved and resolving bilateral upp er lobe pneumonia since the patient's prior study. No new cardiopul monary abnormalities. Signed: Dave Lujan MD Report Verified Date/Time: 01/26/2020 12:28:09 Reading Location: [address] Reading Room Procedure Note Interface, External Ris In - 01/26/2020 12:30 PM CDT FINAL REPORT History: Pneumonia. TECHNIQUE: Helical CT of the chest was performed without contrast utilizing multiple windows, sagittal and coronal reformations. This exam was performed according to our departmental dose optimization program which includes automated exposure control, adjustment of the mA and/or KV according to the patient's size and/or use of iterative reconstruction technique. FINDINGS: Correlation is made with patient's previous study performed November 26, 2019. Minimal atherosclerotic calcification of the aorta is again noted. The heart, mediastinum and great vessels are otherwise unremarkable in this noncontrast study. A right upper extremity PICC line is noted its tip terminates in the superior vena cava. No mediastinal or hilar adenopathy. Thyroid gland is unremarkable. Central airways are patent. Focal opacity in the upper lobes has improved significantly since the previous study. Only a small amount of residual opacity is present. No new pulmonary parenchymal abnormalities. No effusions. No suspicious pulmonary nodules or masses. Images obtained through the upper abdomen are unremarkable. Bones are unremarkable. IMPRESSION: 1. Improved and resolving bilateral uppe r lobe pneumonia since the patient's prior study. No new cardiopulmonary abnormalities. Signed: Dave Lujan MD Report Verified Date/Time: 01/26/2020 12:28:09 Reading Location: [address] Transitional Reading Room Performing Organization Address City/State/[facility] Ph one Number GE RIS * Prepare PLT (01/01/2020 11:54 PM CDT) Unit ABO O Pos SAFETRACE TX UNIT NUMBER [id number] SAFETRACE TX Status TX_TIMEINCHART SAFETRACE TX Blood Bank PLATELETS SAFETRACE TX Product PRODUCT CODE [id number] SAFETRACE TX Performing Organization Address City/[facility] Ph one Number [place] * Respiratory Panel [facility] (12/29/2019 8:26 PM CDT) Human Not detected Not detected, [facility] Metapneumovirus Equivocal [facility] Rhinovirus Not detected Not detected, [facility] Influenza A Not detected Not detected, [facility] Equivocal [facility] INFLUENZA A (NO [facility] SUBTYPE) [facility] Influ[facility] A [facility] subtype H1 [facility] Influenza [facility] Subtype H3 [facility] Influenza A [facility] Subtype H1-2009 [facility] Influenza B Not detected Not detected, [facility] Respiratory Not detected Not detected, [facility] Syncytial Virus Equivocal [facility] Parainfluenza Not detected Not detected, [facility] Virus 1 Equivocal [facility] Parainfluenza Not detected Not detected, [facility] Virus 2 [facility] Parainfluenza Not detected Not detected, [facility] virus 3 [facility] Parainfluenza Not detected Not detected, [facility] Virus 4 [facility] Adenovirus Not detected Not detected, [facility] Coronavirus Not detected Not detected, [facility] 229E [facility] Coronavirus Not detected Not detected, [facility] HKU1 [facility] Coronavirus Not detected Not detected, [facility] [id number] [facility] Coronavirus Not detected Not detected, [facility] OC43 [facility] Bordetella Not detected Not detected, [facility] Pertussis [facility] Chlamydophila Not detected Not detected, [facility] Pneumoniae [facility] Mycoplasma Not detected Not detected, [facility] Pneumoniae [facility] Specimen Nasopharyngeal - Nasopharyngeal wall structure (body structure) Narrative Performed At Other viruses and bacteria not targeted by this PCR p mandy cannot be excluded; [facility] therefore clinical correlation and follow up of serol ogy, culture results, and [facility] other molecular studies is required. e results are not intended to be used as the sole means for clinical diagnosis o r patient management decisions. This sample was tested at the [facility] [employer] [facility] using the [employer] FilmArray Respiratory Panel. It is FDA cleared and has been verified and approved by the [facility] Molecular Diagnos tics Laboratory for clinical use on nasopharyngeal swab specimens. The performance of the FilmArray RP has not been established in individuals who received influenza vaccine. Recent ad ministration of a nasal influenza vaccine may cause false positive results for In fluenza A and/or Influenza B. Performing Organization Address City/State/Zipcode Ph one Number [facility] [address] [place], [place] [address] MEDICAL CENTER * aPTT (12/29/2019 5:48 PM CDT) PTT 35.6 22.5 - 36.0 seconds [facility] Specimen Blood Performing Organization Address City/[facility]/Zipcode Ph one Number [facility] [address] [place], [place] [address] MEDICAL CENTER * CRITICAL CARE (12/29/2019 4:51 PM CDT) Narrative Performed At Param Benitez MD 12/29/2019 6:55 PM Critical Care Performed by: Param Benitez MD Authorized by: Param Benitez MD Total critical care time: 71 minutes Critical care was necessary to treat or prevent imminent or life-threatening deterioration of the f ollowing conditions: sepsis. Critical care was time spent personally by me on the following activities: discussions with primary provider, inte rpretation of cardiac output measurements, examination of patient, o rdering and performing treatments and interventions, ordering and review of radiographic studies, re-evaluation of patient's condition, d evelopment of treatment plan with patient or surrogate, review of old satnam rts, pulse oximetry, ordering and review of laboratory studies, obtaining history from patient or surrogate, evaluation of patient's response to tara atment and discussions with consultants. * Chromosomes Cancer Study (11/28/2019 2:08 PM CDT) Only the most recent of 2 results within the time period is included. Scan Result [facility] Specimen Bone Marrow - Bone marrow structure (body structure) Narrative Performed At This result has an attachment that is n ot available. Performing Organization Address City/[facility]/Zipcode Ph one Number [facility] [address] [facility] [address] [place], [place] [address] GENETICS * BONE MARROW PROCESS. (11/28/2019 12:30 PM CDT) Only the most recent of 2 results within the time period is included. Anatomic Case# [id number] [facility] Ordering [facility] Performing [facility] Clot Rec'd? Yes [facility] Biopsy Rec'd? Yes [facility] Rec'd for No [facility] Culture? [facility] Rec'd for Flow? Yes [facility] Rec'd for Yes [facility] Cytogenetics? [facility] Rec'd for Yes [facility] Molecular [facility] Genetics? MEDICAL CENTER Specimen Bone Marrow - Right posterior iliac crest (body structure) Narrative Performed At Good collection but aspirate slides not good lavander top clot(Molly) [facility] Performing Organization Address [facility] Ph one Number [address] [facility] * Flow Cytometry Requisition (11/28/2019 12:15 PM CDT) Only the most recent of 3 results within the time period is included. Flow Cytometry See Separate Report [facility] Case # [id number] [facility] Specimen Bone Marrow - Bone marrow structure (body structure) Performing Organization Address [facility] Ph one Number [address] [facility] * Flow Cytometry (11/28/2019 12:15 PM CDT) Only the most recent of 3 results within the time period is included. Case Report Flow Cytometry Report [facility] Case: [id number] [facility] Authorizing Provider: Caitlyn Rivas MD Collected: 11/28/2019 12:15 PM Ordering Location: [address] Received: 11/28/2019 01:37 PM SERVICE Pathologist: Radha Devries MD Specimen: Other Flow BONE MARROW, FLOW CYTOMETRY: [facility] Electronically Interpretation -NO INCREASED OR ABERRANT [facility] sig sonia by Kayce, MYELOBLAST POPULATION [facility] CENTER Radha blanc MD IDENTIFIED on 11/29/2019 at 10:23 -SEE COMMENT AM Flow The myeloblasts in the current [facility] Interpretation sample (1% of total cells) [facility] Comment lack aberrant expression of MEDICAL C ENTER CD7, in contrast to the neoplastic myeloblasts seen in previous flow cytometric evaluations ([id number], [id number]). See M20-104 for correlation with the morphologic and other features. 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 [facility] SPECIMEN SOURCE Bone marrow [facility] CELLULAR cytoplasmic (c) MPO, cCD79a, FAVIAN VILLA UKE'S BIOMARKER CD34, CD19, CD7, CD3, cCD3, [facility] ANALYSIS CD45, CD16, CD13, CD117, MEDICAL CENT ER CD11b, CD10, CD36, CD64, CD33, CD14, HLA-DR, cTdT, CD56 IMMUNOPHENOTYPI Specimen Viability: 99.7% [facility] FINDINGS Number of Events Acquired: [facility] [id number] [facility] The following populations are identified: Blasts: the dim CD45+ CD34+CD117+CD13+CD33+HLA-DR+CD 7- myeloblasts comprise 1.0% of total cells. Lymphocytes: Bright CD45+ lymphocytes comprise 3.3% of total cells. Myeloid/monocytic populations: As identified by CD45 and light scatter characteristics, granulocytes comprise 72.3% of cells analyzed, and CD14+ monocytes comprise 17.6% of total cells. The remaining events analyzed represent nonviable cells, non-hematolymphoid cells, and debris. DISCLAIMER These tests were developed and [facility] their performance [facility] characteristics determined by [facility]. They have not been cleared or approved by the U.S. Food and Drug Administration. The FDA has determined that such clearance or approval is not necessary. It should not be regarded as investigational or for research. This laboratory is certified under the Clinical Laboratory Improvement Amendments of 1988 ("CLIA") as qualified to perform high-complexity clinical testing. Professional [facility] 'S component was Center, Department of HEALTH BCM performed at Pathology, [address] [place] [address], [place] [address], Specimen Other Performing Organization Address City/State/Zipcode Ph one Number [facility] [address] [place] [address] [facility]ICAL [place] * Bone Marrow Exam (11/28/2019 12:15 PM CDT) Only the most recent of 2 results within the time period is included. Case Report Bone Marrow Pathology Report [facility] Melani [facility] Case: [id number] [facility] CENTER Authorizing Provider: Caitlyn Rivas MD Collected: 11/28/2019 12:15 PM Ordering Location: [address] Received: 11/28/2019 12:32 PM SERVICE Pathologist: Radha Devries MD Specimens: A) - Iliac Crest, Right B) - C) - ADDENDUM 2 Reticulin stain performed on [facility] Addendum the marrow biopsy (C1) shows a [facility] electr onically focal mild to moderate [facility]ENTER signed by Kayce , increase in reticulin Radha Le MD fibrosis. on 12/06/2019 at 6:01 CPT: 98529 x 1 PM ADDENDUM The normal results of the [facility] Add endum cytogenetic studies do not [facility] electronic ally alter the previously rendered MEDICAL CENTER signed by Kayce, diagnosis (see attached Radha Le MD report). on 12/04/2019 at 10:21 AM DIAGNOSIS BONE MARROW ASPIRATE, CLOT, [facility] LUKE'S E lectronically AND DECALCIFIED BIOPSY: [facility] signed by Dell jay, -VARIABLY CELLULAR (20-80%) [facility] CENTER Radha Le MD MARROW WITH TRILINEAGE on 11/29/2019 at 2:34 HEMATOPOIESIS AND 1% BLASTS PM -PENDING CYTOGENETIC STUDIES PERIPHERAL BLOOD: -ANEMIA AND THROMBOCYTOPENIA Signing Pathologist Direct Phone Line: [phone] COMMENT Less than 5%(1%) blasts are [facility] noted on marrow touch [facility] imprints; marrow aspirate [facility] smears are less than optimal. Flow cytometric studies (F20-567) do not identify an increased nor aberrant myeloblast population. CD34 immunostaining is compatible with the morphologic impression of less than 5% marrow blasts. Cytogenetic studies are pending, and will be reported separately. An addendum will follow. CPT Code(s) 25335; 83539; 38532 x 2; [facility] S 46241; 72900; 74300; [address] [facility] CLINICAL S/p therapy for AML [facility] SPECIMEN SOURCE Bone marrow [facility] GROSS The specimen is received in [facility] DESCRIPTION three parts all labeled with [facility] the patient's name, [facility] CENTER record number, accession number. Specimen A consists of several aspirate smears including one unstained slide for iron stain. Specimen B consists of blood clot measuring 0.8 x 0.5 x 0.5 cm. The specimen is sectioned and entirely submitted in B1. Specimen C is received in formalin and consists of pascual-red bone core measuring pascual-red bone core measuring 0.7 cm in length, submitted entirely in cassette C1 for decalcification. HS/pl MICROSCOPIC BONE MARROW ASPIRATE: [facility] DESCRIPTION QUALITY: [facility] Aspirate- Inadequate [facility] CENTER Touch imprint- Adequate MARROW DIFFERENTIAL COUNT: Number of cells counted: 300 1% Blasts 2% Promyelocytes 36% Myelocytes/Metamyelocytes 30% Bands/Segmented granulocytes 0% Eosinophils and precursors 0% Basophils and precursors 28% Erythroid precursors 2% Lymphocytes 1% Monocytes 0% Plasma cells Myeloid: Erythroid Ratio: 2.5; Normal Blasts: Not Increased Erythropoiesis: Left shifted and complete maturation Myelopoiesis: Normal and complete maturation Megakaryocytes: Present Stainable storage iron cannot be assessed based on an iron stain performed on the aspirate smear due to the lack of adequate marrow spicules. BONE MARROW BIOPSY: Biopsy- Adequate Clot- Inadequate Variable Cellular ( 20-80 %). There is stromal injury/chemotherapy effect. Erythropoiesis and myelopoiesis are complete. Megakaryocytes are adequate, best highlighted with the CD61 immunohistochemical stain. CD34 immunohistochemical staining shows very few (less than 5%) scattered positive blasts. Bony trabeculae: Compatible with a partially subcortical sampling Stainable storage iron cannot be assessed based on an iron stain performed on the clot section due to the lack of adequate marrow particles. PERIPHERAL BLOOD: Red cells: Normocytic, mild anisocytosis White cells: No circulating blasts; occasional reactive-appearing lymphocytes; mild granulocytic left shift with toxic changes Platelets: Decreased SPECIAL STUDIES The interpretation of this FVAIAN URBANO case included the use of [facility] immunohistochemistry or [facility] special stains. B1: iron C1: CD34, CD61 Control Slides Examined: In-house known positive controls were evaluated along with the test tissue. These control slides run alongside of the patients sample show appropriate staining. Internal positive and negative controls when available are evaluated Immunohistochemistry technical testing was performed at [facility], Pathology Laboratory where it was developed and its performance characteristics were determined. It has not been cleared or approved by the U.S. Food and Drug Administration. The FDA has determined that such clearance or approval is not necessary. The test is used for clinical purposes. It should not be regarded as investigational or for research. This laboratory is certified under the Clinical Laboratory Improvement Amendments of 1988 (CLIA-88) as qualified to perform high complexity clinical laboratory testing. Professional [facility] component was Center, Department of HEALTH BCM performed at Pathology, [address] [place] [address], Specimen Bone Marrow Narrative Performed At This result has an attachment that is n ot available. Performing Organization Address City/State/Zipcode Ph one Number [address] 7[address] MEDICAL CENTER * 2D Echo W/Doppler(CW/PW/Color) (11/27/2019 1:54 PM CDT) Ejection [facility] ECHO Fraction [facility] [employer] [facility] Specimen Narrative Performed At Transthoracic Echocardiography Report (TTE) [facility] ECH O HEART[facility] Demographics [facility] Patient Name FARA MATHEWS ate of Study 11/27/2019 BIMAL Gender Female Visit Number [id number] Race Unknown Room Number 2011 Number Date of 1960 Referring Physician Renzo Porras Age 59 year(s) Targeting Acquisition Officer Abed Ubaldo Interpreting Isabel Daniels Physician Procedure Type of Study TTE procedure:2DECHO W DOPP LER(CW/PW/COLOR) (Routine) Indications:Shortness of breath. Clinical History HGB 8.1 HCT 24.2 % CANCER Height: 60 inches Weight: 57.61 kg (127 lbs) BSA: 1.54 m^2 BMI: 24.8 kg/m^2 HR: 87 bpm BP: 165/84 mmHg Summary Global LV systolic function normal . No evidence of LV hypertrophy. Normal diastolic function. LA size is normal . A trace of aortic regurgitation. Estimated peak systolic PA pressure is 30-35 mmHg (normal range) . The estimated RA pressure by IVC dynami cs 0-5mmHg . Previous Study In comparison with the prior exam on there are no significant changes. Signature Findings Left Ventricle Global LV sy stolic function normal . LVEF by Aguilar's method of disk assessment is incr eased (>60%) . The left ventricle is chamber size (by vol index) is n ormal (female - LVED vol - 29-61ml/m2). No e vidence of LV hypertrophy. Norm al diastolic function. Left Atrium LA size is normal . Right Ventricle The right ve ntricular chamber size and systolic func tion are within normal limits. Right Atrium RA size is probably normal based on available view s. Aortic Valve Mild AoV cu sp thickening. A tr rob of aortic regurgitation. Mitral Valve Mild MV ana flet thickening. Trac e mitral regurgitation. Tricuspid Valve TV structure is normal. A tr rob of tricuspid regurgitation. [place] mated peak systolic PA pressure is 30-35 mmHg (nor mal range) . Pulmonic Valve Normal PV st ructure appears normal by available view s. Aorta Aortic root size (SInus of Valsalva diameter) is norm al . Pericardium No signifi cant pericardial effusion is visualized. IVC/SVC/PA/PV/Pleural The estimated R A pressure by IVC dynamics 0-5mmHg . Chambers/Structures Left Atrium LA Dimension: 3.75 cm LA Area: 14.6 cm^2 LA Volume: 48.94 ml LA Vol. Index: 32 ml/m^2 Left Ventricle LVIDd: 4.52 cm LVEDV:93.63 ml LVIDs: 2.65 cm LV Septum Diastolic: 0.79 cm LV PW Diastolic: 0.79 cm LV FS: 41.4 % LVEDV Aguilar's:64.23 ml LVESV Aguilar's:22.45 ml LVEDVI: 42 ml/m^2 LVEF Aguilar's: 65.1 % LVESVI: 15 ml/m^2 LVOT Diameter: 2.02 cm Right Ventricle RVOT VTI: 18.47 cm Doppler/Quantitative Measurements Mitral Valve MV Peak E-Wave: 0.9 m/s MV Peak A-Wave: 0.77 m/s E/A Ratio: 1.16 Peak Gradient: 3.21 mmHg Deceleration Time: 176 msec MV Josh. Peak: Tissue Doppler E' Septal Velocity: 0.07 m/s E' Lateral Velocity: 0.12 m/s Aortic Valve Peak Velocity: 1.57 m/s Mean Velocity: 0.99 m/s Peak Gradient: 9.83 mmHg Mean Gradient: 4.64 mmHg AV Area (continuity): 2.98 cm^2 AV VTI: 28.58 cm AR P1/2t: 333.5 msec Deceleration Time: 1149.9 msec AV DVI: 0.93 LVOT Peak Velocity: 1.38 m/s Peak Gradient: 7.64 mmHg Mean Velocity: 0.8 m/s Mean Gradient: 3.09 mmHg LVOT Diameter: 2.02 cm LVOT VTI: 26.56 cm LVOT Area: 3.2 cm^2 LVOT SV:85.07 ml LVOT CO: 7.4 l/min LVOT CI: 4.81 l/min/m^2 Tricuspid Valve TR Velocity: 2.67 m/s TR Gradient: 28.52 mmHg Procedure Note Interface, External Ris In - 11/27/2019 4:33 PM CDT Transthoracic Echocardiography Report (TTE) Demographics Patient Name FARA MATHEWS Date of Study 11/27/2019 BIMAL Gender Female Visit Number [id number] Race Unknown Room Number 2011 Number Date of 1960 Referring Physician Renzo Porras Age 59 year(s) Targeting Acquisition Officer Abed Ubaldo Interpreting Physician KELSIE Licona Procedure Type of Study TTE procedure:2DECHO W DOPPLER(CW/PW/COLOR) (Routine) Indications:Shortness of breath. Clinical History HGB 8.1 HCT 24.2 % CANCER Height: 60 inches Weight: 57.61 kg (127 lbs) BSA: 1.54 m^2 BMI: 24.8 kg/m^2 HR: 87 bpm BP: 165/84 mmHg Summary Global LV systolic function normal . No evidence of LV hypertrophy. Normal diastolic function. LA size is normal . A trace of aortic regurgitation. Estimated peak systolic PA pressure is 30-35 mmHg (normal range) . The estimated RA pressure by IVC dynamics 0-5mmHg . Previous Study In comparison with the prior exam on 09/19/19 there are no significant changes. Signature Findings Left Ventricle Global LV systolic function normal . LVEF by Aguilar's method of disk assessment is increased (>60%) . The left ventricle is chamber size (by vol index) is normal (female - LVED vol - 29-61ml/m2). No evidence of LV hypertrophy. Normal diastolic function. Left Atrium LA size is normal . Right Ventricle The right ventricular chamber size and systolic function are within normal limits. Right Atrium RA size is probably normal based on available views. Aortic Valve Mild AoV cusp thickening. A trace of aortic regurgitation. Mitral Valve Mild MV leaflet thickening. Trace mitral regurgitation. Tricuspid Valve TV structure is normal. A trace of tricuspid regurgitation. Estimated peak systolic PA pressure is 30-35 mmHg (normal range) . Pulmonic Valve Normal PV structure appears normal by available views. Aorta Aortic root size (SInus of Valsalva diameter) is normal . Pericardium No significant pericardial effusion is visualized. IVC/SVC/PA/PV/Pleural The estimated RA pressure by IVC dynamics 0-5mmHg . Chambers/Structures Left Atrium LA Dimension: 3.75 cm LA Area: 14.6 cm^2 LA Volume: 48.94 ml LA Vol. Index: 32 ml/m^2 Left Ventricle LVIDd: 4.52 cm LVEDV:93.63 ml LVIDs: 2.65 cm LV Septum Diastolic: 0.79 cm LV PW Diastolic: 0.79 cm LV FS: 41.4 % LVEDV Aguilar's:64.23 ml LVESV Aguilar's:22.45 ml LVEDVI: 42 ml/m^2 LVEF Aguilar's: 65.1 % LVESVI: 15 ml/m^2 LVOT Diameter: 2.02 cm Right Ventricle RVOT VTI: 18.47 cm Doppler/Quantitative Measurements Mitral Valve MV Peak E-Wave: 0.9 m/s MV Peak A-Wave: 0.77 m/s E/A Ratio: 1.16 Peak Gradient: 3.21 mmHg Deceleration Time: 176 msec MV Josh. Peak: Tissue Doppler E' Septal Velocity: 0.07 m/s E' Lateral Velocity: 0.12 m/s Aortic Valve Peak Velocity: 1.57 m/s Mean Velocity: 0.99 m/s Peak Gradient: 9.83 mmHg Mean Gradient: 4.64 mmHg AV Area (continuity): 2.98 cm^2 AV VTI: 28.58 cm AR P1/2t: 333.5 msec Deceleration Time: 1149.9 msec AV DVI: 0.93 LVOT Peak Velocity: 1.38 m/s Peak Gradient: 7.64 mmHg Mean Velocity: 0.8 m/s Mean Gradient: 3.09 mmHg LVOT Diameter: 2.02 cm LVOT VTI: 26.56 cm LVOT Area: 3.2 cm^2 LVOT SV:85.07 ml LVOT CO: 7.4 l/min LVOT CI: 4.81 l/min/m^2 Tricuspid Valve TR Velocity: 2.67 m/s TR Gradient: 28.52 mmHg Performing Organization Address City/State/Zipcode Ph one Number [facility] * Clostridium difficile [facility] Toxin (11/24/2019 4:09 PM CDT) C. Difficle Negative Negative [facility] C. Difficile NegativeComment: No indication Negative [facility] Antigen of Clostridium difficile [facility] infection and no colonization. MEDICAL CENTER Discontinue enteric isolation and therapy. Specimen Stool - Feces (substance) Narrative Performed At Testing performed by [employer] Rapid Cassette Assay. Fo r [facility], published [facility] sensitivity of the assay is 98.7% andie red to cytotoxicity testing. For Toxin [facility], published sensitivity is 87.8% and specificity 99.4% compared to cytotoxicity testing. Verification of kit performance was don e by the [facility] Microbiology Lab prior to clinical use. Performing Organization Address City/[facility] Cent[facility] Ph one Number [address] [facility] * STOOL PATH CHARGE (11/24/2019 4:09 PM CDT) Pathogen exam Done [facility] Specimen Stool - Feces (substance) Performing Organization Address [facility] Centercode Ph one Number [address] [facility] * Shiga Toxin Screen (11/24/2019 4:09 PM CDT) Shiga toxin 1 Not detected Not detected [facility] Shiga toxin 2 Not detected Not detected [facility] Specimen Stool - Feces (substance) Performing Organization Address [facility] Ph one Number [address] [facility] * Stool culture + Shiga toxin (11/24/2019 4:09 PM CDT) Result No Salmonella, Shigella or [facility] Campylobacter isolated [facility] Specimen Stool - Feces (substance) Narrative Performed At Reduced fecal amandeep [facility] Performing Organization Address [facility] Centercode Ph one Number [address] [facility] * Urinalysis w/Microscopic (11/23/2019 7:47 PM CDT) Only the most recent of 2 results within the time period is included. Color, UA Light Yellow [facility] Clarity, UA Clear [facility] Specific 1.011 1.001 - 1.035 [facility] [place] pH, UA 5.5 5.0 - 8.0 [facility] Protein, UA 20 mg/dL (A) Negative [facility] Glucose, UA Negative Negative [facility] Ketones, UA Negative Negative [facility] Bilirubin, UA Negative Negative [facility] Blood, UA Trace (A) Negative [facility] Nitrite, UA Negative Negative [facility] Leukocytes, UA Negative Negative [facility] Urobilinogen, 0.2 0.2 - 1.0 mg/dL [facility] RBC, UA 8 /HPF [facility] WBC, UA 4 /HPF [facility] Bacteria, UA Rare [facility] Mucus Rare [facility] Squam Epithel, <1 /HPF [facility] Specimen Source [facility] Specimen Urine Narrative Performed At Mental Health Coordinator ID - [auto] [facility] Mental Health Coordinator ID - [facility] Performing Organization Address City/State/Zipcode Ph one Number [facility] [address] [place], [place] [address] MEDICAL CENTER * MR lower extremity without & with IV contrast left side (11/22/2019 9:37 AM CDT) Specimen Narrative Performed At FINAL REPORT Page365 MRI of the left leg with and without co ntrast. INDICATION: Left knee pain and necrotic left hoover lesion in febrile, neutropenic pt COMPARISON: No priors TECHNIQUE: Multiplanar multisequence MR I examination of the pelvis was performed with and without intraven ous gadolinium. FINDINGS: There is no evidence of fracture, or ma lalignment. Yuxq-rd-tenjuwkh degenerative changes noted at the left knee, associated with a small joint effusion. Marrow signal is somewh at heterogeneous, but there is no suspicious lesion. Focal edema is noted in the peroneus mu scles. Additional small foci of marrow edema are seen in the medial head of gastrocnemius, and lateral aspect of soleus muscles. There are four foci of focal enhancement in the muscles, each with a tiny central area of nonenhancement. No drainable collection . There is no fascial edema. There is mild subcutaneous edema at the anterior aspect of the mid leg, with a shallow ulceration. No drai nable fluid collection. IMPRESSION: Edema in the peroneus, gastrocnemius, a nd soleus muscles, associated with four foci of focal enhancement wit h nonenhancing centers, which could reflect small abscesses, or granu madelaine. Nonspecific mild subcutaneous edema at the anterior aspect of the mid leg, associated with a shallow ulcerati on. Signed: Abdirashid Villeda MD Report Verified Date/Time: 11/22/2019 10:35:10 Reading Location: [facility] C0X [employer] [facility] Reading Room Procedure Note Interface, External Ris In - 11/22/2019 10:37 AM CDT FINAL REPORT MRI of the left leg with and without contrast. INDICATION: Left knee pain and necrotic left hoover lesion in febrile, neutropenic pt COMPARISON: No priors TECHNIQUE: Multiplanar multisequence MRI examination of the pelvis was performed with and without intravenous gadolinium. FINDINGS: There is no evidence of fracture, or malalignment. Xujc-si-nvwbzlsg degenerative changes noted at the left knee, associated with a small joint effusion. Marrow signal is somewhat heterogeneous, but there is no suspicious lesion. Focal edema is noted in the peroneus muscles. Additional small foci of marrow edema are seen in the medial head of gastrocnemius, and lateral aspect of soleus muscles. There are four foci of focal enhancement in the muscles, each with a tiny central area of nonenhancement. No drainable collection. There is no fascial edema. There is mild subcutaneous edema at the anterior aspect of the mid leg, with a shallow ulceration. No drainable fluid collection. IMPRESSION: Edema in the peroneus, gastrocnemius, and soleus muscles, associated with four foci of focal enhancement with nonenhancing centers, which could reflect small abscesses, or granulomas. Nonspecific mild subcutaneous edema at the anterior aspect of the mid leg, associated with a shallow ulceration. Signed: Abdirashid Villeda MD Report Verified Date/Time: 11/22/2019 10:35:10 Reading Location: [facility] C013X Ortho Consult Reading Room Performing Organization Address [facility] Ph one Number GE RIS * Blood culture, routine Isolator (11/22/2019 4:23 AM CDT) Result No growth [facility] Specimen Blood Performing Organization Address [facility] Ph one Number [place] [address] [facility] * Aspergillus Antibody,ID (11/22/2019 4:22 AM CDT) Aspergillus Negative Negative [facility] flavus Ab [facility] Aspergillus Negative Negative [facility] niger Ab [facility] ASPERGILLUS Negative Negative [facility] FUMIGATUS AB Comment: DIAGNOSTIC Interpretive INCORPORATED Criteria: Negative: Antibody not detected Positive: Antibody detected A positive result is represented by 1 or more precipitin bands, and may indicate fungus ball, allergic bronchopulmonary aspergillosis (ROZ) or invasive aspergillosis. Generally, the appearance of 3-4 bands indicates either fungus ball or ROZ. Specimen Blood Narrative Performed At SEE ALSO #[id number] [facility] Performing [facility] INC[facility]PORATED [address] [facility], [address] [facility] [place] [address] Bird Mueller MD, PhD Performing Organization Address [facility] Ph one Number [facility] , [place] INCORPORATED [address] [facility] [address] * HISTOPLASMA AB,ID (11/22/2019 4:22 AM CDT) Histoplasma NEGATIVE [facility] Ab,Id Comment: DIAGNOSTIC REFERENCE RANGE: NEGATIVE INCORPORATED INTERPRETIVE CRITERIA: NEGATIVE: Antibody Not Detected POSITIVE: Antibody Detected Positive immunodiffusion (ID) reactions involve one or more specific precipitin bands. Of these bands the first to appear in active histoplasmosis is the "M" band, which is seen in approximately 70% of proven cases. This band is also seen in some patients with past infections and in 20% of those with recent histoplasmin skin testing. The "H" band is usually seen in active and progressive histoplasmosis and almost always in the presence of the "M" band, although it is found less often (approx. 10% of proven cases.) Specimen Blood Narrative Performed At SEE ALSO #[id number] [facility] Performing [facility] *QDID [facility] [employer] [address] [place] [phone] Fly Calle MD Performing Organization Address [facility] one Number [facility] [place], [place] INCORPORATED [address] [place] [address] * Fungal Panel (11/22/2019 4:22 AM CDT) [facility] Fungal Panel1 Refer to individual [facility] Aspergillus, Blastomyces, DIAGNOSTIC Coccidioides & Histoplasma Ab INCORPORATED results. Specimen Blood Performing Organization Address [facility] one Number [place] INCOR[place] [address] [place] [address] * Coccidioides antibodies (11/22/2019 4:22 AM CDT) [facility] Coccidioides NEGATIVE [facility] Ab,Id Comment: DIAGNOSTIC REFERENCE RANGE: NEGATIVE INCORPORATED INTERPRETIVE CRITERIA: NEGATIVE: Antibody Not Detected POSITIVE: Antibody Detected The immunodiffusion (ID) procedure correlates both in sensitivity and clinical utility with the CF test. The ID test, which detects IgG directed to the "F" antigen, becomes positive within 4 weeks after infection and remains positive throughout clinically active disease. It is most useful in confirming the specificity of low CF titers, where line(s) of identity are formed with reference antisera. Positive ID reactions are diagnostic for coccidioidomycosis and usually indicate active or recent disease and remain detectable for up to 1 year thereafter. Specimen Blood Narrative Performed At SEE ALSO #[id number] [facility] Performing [facility] *QDID [facility] [address] [place] [phone] Fly Calle MD Performing Organization Address [facility]/Zipcode Ph one Number [facility] [place] INCORPORATED [address] [facility] [address] * Blastomyces antibody (11/22/2019 4:22 AM CDT) Pathologist [facility] Blastomyces Negative [facility] Ab,Id Comment: DIAGNOSTIC Test Not Performed. Due to INCORPORATED technical issues with this assay we are unable to perform the test ordered at our [place] site. Your sample has been sent to our [place], [place] laboratory for testing. We will communicate when the problem has been resolved and testing has been resumed at [place]. This is a corrected result. Previous result was TNP on 12/11/2019 at 0801 CDT Specimen Blood Narrative Performed At [facility] SEE ALSO #[id number] INCORPORATED Performing Lab *QDID [facility] [address] [place] [phone] Fly Calle MD Performing Organization Address [facility] Ph one Number [facility] [place] INC[facility] [address] [place] [id number] * Cryptococcal antigen (11/22/2019 4:22 AM CDT) Pathologist [facility] Cryptococcal Negative Negative, [facility] Antigen, Serum [facility] Specimen Blood Performing Organization Address [facility] one Number [address] [facility] * Urine culture (11/21/2019 5:50 AM CDT) Only the most recent of 2 results within the time period is included. Pathologist [facility] Result >100,000 col/mL skin amandeep [facility] Specimen Urine - Urine specimen collection, clean catch (procedure) Performing Organization Address [facility] one Number [address] [facility] * Transfuse Leuko-Red PLT (11/21/2019 4:31 AM CDT) Only the most recent of 5 results within the time period is included. * Wound culture + gram stain (11/20/2019 11:12 PM CDT) Result 3 out of 3 media Fus[facility] species (A) [facility] Comment: MEDICAL CENTER Susceptibility performed by: [facility], Dept. of Pathology, [facility], [address] [place] [phone] Gram Stain No white blood cells seen [facility] Gram Stain No organisms seen [facility] Specimen Wound - Structure of left lower leg (body structure) Antibiotic Method Susceptibility Organism Amphotericin B MANUAL METHOD 2 [facility] species Voriconazole MANUAL METHOD 16 [facility] species Comment: Testing performed by: [facility] Dept. of Pathology [facility] [address] [place] [phone] Performing Organization Address [facility] one Number [address] MEDICAL CENTER * EKG-SCANNED (11/15/2019 3:01 PM CDT) Only the most recent of 2 results within the time period is included. Narrative Performed At This result has an attachment that is n ot available. * Troponin I (11/10/2019 4:13 PM CDT) Only the most recent of 3 results within the time period is included. Troponin I 0.05 (H) 0.00 - 0.03 ng/mL [facility] Specimen Blood Narrative Performed At Troponin I (TnI) levels must be interpreted in the co ntext of the presenting [facility] symptoms and the clinical findings. Elevated TnI leve ls indicate myocardial [facility] damage, but are not specific for ischem ic heart disease. Elevated TnI levels are seen in patients with other cardiac con ditions (including myocarditis and congestive heart failure), and slight T nI elevations occur in patients with other conditions, including sepsis, ian al failure, acidosis, acute neurological disease, and persistent tachyarrhythmia . Mental Health Coordinator ID - CONSUELO M Performing Organization Address [facility] one Number [address] [facility] * B-type Natriuretic Factor (BNP) (11/10/2019 2:16 PM CDT) Only the most recent of 2 results within the time period is included. BNP 30 0 - 100 pg/mL [facility] Specimen Blood Narrative Performed At Mental Health Coordinator ID - DB [facility] Performing Organization Address [facility] Ph one Number [facility] [address] [place], [place] [address] [facility] * Bartonella Species Abs, reflex to titer (10/29/2019 12:33 PM CDT) B. HENSELAE NEGATIVE [facility] (IGG) SCREEN [facility]NO[facility]IC INCORPORATED B.Roman Igg NEGATIVE [facility] Screen [facility]NO[facility] B.Henselae Igm NEGATIVE [facility] Screen [facility]AGNOSTIC INC[facility]PORATED B. roman IgM NEGATIVE [facility] Screen Comment: DIAGNOSTIC REFERENCE RANGE: NEGATIVE INCORPORATED Whereas sera from 10% of healthy controls exhibit Bartonella henselae and Bartonella roman IgG titers of 1:64 - 1:128, none show titers of 1:256 or above. Sera from 95% of patients with clinically defined cat scratch disease show IgG titers of 1:64 and above; 79% exhibit titers of 1:256 and above. IgM titers at 1:20 or higher have not been detected in the normal adult population. Individuals infected with either B. henselae or B. roman may not have initial IgG titers greater than or equal to 1:64; confirmation of infection with either organism may therefore require testing of serial specimens to detect increasing IgG titers or the presence of IgM. IgG cross- reactivity between B. henselae and B. roman may occur at any titer. Crossreactivity of IgM between the two species is limited, and typically is not seen. This test was developed and its analytical performance characteristics have been determined by [facility]. It has not been cleared or approved by FDA. This assay has been validated pursuant to the CLIA regulations and is used for clinical purposes. Specimen Blood Narrative Performed At Performing Lab [facility] *QDID INCORPORATED [facility]. [address] [place] [phone] Fly Calle MD Performing Organization Address City/State/Zipcode Ph one Number [facility] [place] INC[place] [address] [address] * Prepare Leuko-Red RBC (10/27/2019 11:54 PM CDT) Only the most recent of 5 results within the time period is included. Unit ABO O Pos [employer] [place] UNIT NUMBER [id number] [employer] [place] Status TX_TIMEINCHART [facility] [place] Blood Bank RED BLOOD CELLS [employer] [place] Product PRODUCT CODE [id number] [employer] [place] CROSSMATCH COMPATIBLE [facility] [place] Specimen Other Performing Organization Address [facility] Ph one Number [employer] [place] * Urinalysis with Microscopic If Indicated (10/26/2019 10:56 PM CDT) Color, UA Colorless [facility] Clarity, UA Clear [facility] Specific 1.006 1.001 - 1.035 [facility] [place] pH, UA 7.0 5.0 - 8.0 [facility] Protein, UA Negative Negative [facility] Glucose, UA Negative Negative [facility] Ketones, UA Negative Negative [facility] Bilirubin, UA Negative Negative [facility] Blood, UA Negative Negative [facility] Nitrite, UA Negative Negative [facility] Leukocytes, UA Negative Negative [facility] Urobilinogen, 0.2 0.2 - 1.0 mg/dL [facility] Specimen Source [facility] Specimen Urine Narrative Performed At Mental Health Coordinator ID - [auto] [facility] Mental Health Coordinator ID - christiane [facility] Mental Health Coordinator ID - christiane Performing Organization Address City/[facility]/Zipcode Ph one Number [facility] [address] [facility] [place] [place] [address] * CT chest with IV contrast (10/24/2019 10:13 AM CDT) Only the most recent of 2 results within the time period is included. Specimen Narrative Performed At FINAL REPORT [employer] RIS CT of the chest, abdomen and pelvis, wi th contrast Clinical History: neutropenic fever Technique: CT of the chest, abdomen and pelvis is performed with intravenous contrast administration. This exam was performed according to our departmental dose opti mization program which includes automated exposure control, ad justment of the mA and/or kV according to patient's size and/or use of iterative reconstructive technique. Comparison Film: October 11, 2019 and September 30, 2019 Discussion: Visualized thyroid gland is normal. No supraclavicular, and axillary, mediastinal or hilar lymphadenopathy. H eart and pericardium are unremarkable. There is no mass or consolidation, no p leural effusion. Central airways are patent, no significant bron chiectasis or bronchial wall thickening. Previously seen small groun dglass foci in right upper lobe have resolved. A tiny hypodensity in the posterior rig ht lobe of liver is likely a cyst. No biliary ductal dilatation. Gal lbladder appears normal. There are several new tiny hypodensitie s in spleen, measuring up to 7 mm, probably reflecting microabscess. P ancreas, adrenal glands are normal. Kidneys demonstrate no mass, hy dronephrosis or radiopaque stone. No evidence of bowel obstruction, or ab normal bowel wall thickening. There is a moderate to large amount of fecal content in colon suggests constipation. Appendix is not clearly identified, but there is no pericecal inflammatory change. In the pelvis, bladder, uterus and adne xa are unremarkable. No ascites, free air, or lymphadenopath y. No suspicious bony lesion. Impression: A few tiny new hypodensities in the spl een, possibly reflecting microabscess given history of neutropen ic fever. Resolution of small groundglass foci in right upper lobe. Signed: Abdriashid Villeda MD Report Verified Date/Time: 10/24/2019 12:28:17 Reading Location: [facility] C0[facility] Reading Room Procedure Note Interface, External Ris In - 10/24/2019 12:30 PM CDT FINAL REPORT CT of the chest, abdomen and pelvis, with contrast Clinical History: neutropenic fever Technique: CT of the chest, abdomen and pelvis is performed with intravenous contrast administration. This exam was performed according to our departmental dose optimization program which includes automated exposure control, adjustment of the mA and/or kV according to patient's size and/or use of iterative reconstructive technique. Comparison Film: October 11, 2019 and September 30, 2019 Discussion: Visualized thyroid gland is normal. No supraclavicular, and axillary, mediastinal or hilar lymphadenopathy. Heart and pericardium are unremarkable. There is no mass or consolidation, no pleural effusion. Central airways are patent, no significant bronchiectasis or bronchial wall thickening. Previously seen small groundglass foci in right upper lobe have resolved. A tiny hypodensity in the posterior right lobe of liver is likely a cyst. No biliary ductal dilatation. Gallbladder appears normal. There are several new tiny hypodensities in spleen, measuring up to 7 mm, probably reflecting microabscess. Pancreas, adrenal glands are normal. Kidneys demonstrate no mass, hydronephrosis or radiopaque stone. No evidence of bowel obstruction, or abnormal bowel wall thickening. There is a moderate to large amount of fecal content in colon suggests constipation. Appendix is not clearly identified, but there is no pericecal inflammatory change. In the pelvis, bladder, uterus and adnexa are unremarkable. No ascites, free air, or lymphadenopathy. No suspicious bony lesion. Impression: A few tiny new hypodensities in the spleen, possibly reflecting microabscess given history of neutropenic fever. Resolution of small groundglass foci in right upper lobe. Signed: Abdirashid Villeda MD Report Verified Date/Time: 10/24/2019 12:28:17 Reading Location: [facility] C013X [facility] Consult Reading Room Performing Organization Address City/State/Zipcode Ph one Number GE RIS * Vitamin B12 and Folate (10/14/2019 9:52 AM CDT) Vitamin B12 1,087 (H) 213 - 816 pg/mL [facility] Folate 12.80 >=7.00 ng/mL [facility] Specimen Blood Narrative Performed At Vitamin B12= pg/ml [facility] Reference Range 200-1100 pg/ml [facility] Folate, Serum= ng/ml Reference Range Low <3.4 Borderline 3.4-5.4 Normal >5.4 Performed by [facility] Performing Organization Address [facility] one [address] [facility] * Lactate dehydrogenase (LDH) (09/26/2019 5:02 AM CDT) Only the most recent of 7 results within the time period is included. LDH 206 125 - 220 U/L [facility] Specimen Blood - Central venous catheter, device (physical object) Narrative Performed At Mental Health Coordinator ID - LA [facility] Performing Organization Address [facility] one [address] [facility] * Antibody identification (09/20/2019 9:59 AM CDT) ANTIBODY ID UNID IgG [employer] [place] (BEAKER) Antibody SIGNED OUTComment: An IgG SAFETRACE T X Consult antibody of undetermined specificity is detected, transfuse crossmatch compatible RBCs.Electronic Signature: Giovanni Spain M.D. Specimen Performing Organization Address [facility] one Number [employer] [place] * ECHOCARDIOGRAM REPORT - SCAN (09/19/2019 9:20 PM CDT) Narrative Performed At This result has an attachment that is n ot available. * IR Tunneled Catheter Insertion (09/19/2019 6:35 PM CDT) Specimen Narrative Performed At FINAL REPORT GE RIS History: Leukemia. Need for long-term c entral IV access. PROCEDURE: Following informed written consent, the patient's right upper extremity was prepped and draped in usu al sterile manner. Maximum sterile barrier techniques were utilize d. 2% lidocaine was given locally for anesthesia. No conscious se dation was administered. Using ultrasound guidance a micropuncture nee dle, access was gained to the patient's right basilic vein. A 5 Frenc h dual-lumen power PICC line was cut to a length of 32 cm and placed through a peel-away sheath and over wire centrally into the superi or vena cava under fluoroscopic guidance. The catheter was flushed and secured to the skin using 2-0 silk suture. Overall, th e patient tolerated the procedure well without immediate compli cations and was discharged from the department in stable condition . FINDINGS: Spot image of the chest following PICC line placement demonstrates the right upper extremity PICC to lie i n expected position with its tip of the superior vena cava. Both por ts of the catheter flush and aspirate without difficulty. Ultrasound images of the right upper ex tremity show patent compressible right brachial and basilic veins. No evidence for thrombosis. These ultrasound images wer e archived to PACS. IMPRESSION: 1. Successful uncomplicated ultrasound and fluoroscopically guided placement of a right upper extremity 5 [place] dual lumen PICC line as described above. Total fluoroscopy time: 0.4 minutes. Estimated total patient dose reported a s (Ka,r): 0.6 mGy Signed: Dave uLjan MD Report Verified Date/Time: 09/21/2019 10:43:52 Reading Location: [place] [address] [facility] Reading Room Procedure Note Interface, External Ris In - 09/21/2019 10:46 AM CDT FINAL REPORT History: Leukemia. Need for long-term central IV access. PROCEDURE: Following informed written consent, the patient's right upper extremity was prepped and draped in usual sterile manner. Maximum sterile barrier techniques were utilized. 2% lidocaine was given locally for anesthesia. No conscious sedation was administered. Using ultrasound guidance a micropuncture needle, access was gained to the patient's right basilic vein. A 5 Kittitian dual-lumen power PICC line was cut to a length of 32 cm and placed through a peel-away sheath and over wire centrally into the superior vena cava under fluoroscopic guidance. The catheter was flushed and secured to the skin using 2-0 silk suture. Overall, the patient tolerated the procedure well without immediate complications and was discharged from the department in stable condition. FINDINGS: Spot image of the chest following PICC line placement demonstrates the right upper extremity PICC to lie in expected position with its tip of the superior vena cava. Both ports of the catheter flush and aspirate without difficulty. Ultrasound images of the right upper extremity show patent compressible right brachial and basilic veins. No evidence for thrombosis. These ultrasound images were archived to PACS. IMPRESSION: 1. Successful uncomplicated ultrasound a nd fluoroscopically guided placement of a right upper extremity 5 Kittitian dual lumen PICC line as described above. Total fluoroscopy time: 0.4 minutes. Estimated total patient dose reported as (Ka,r): 0.6 mGy Signed: Dave Lujan MD Report Verified Date/Time: 09/21/2019 10:43:52 Reading Location: [facility] P048 Angio Body Reading Room Performing Organization Address City/State/Zipcode Ph one Number GE RIS * 2D Echo W/Doppler(CW/PW/Color) (09/19/2019 2:31 PM CDT) Ejection [facility] ECHO Fraction [facility] Specimen Narrative Performed At Transthoracic Echocardiography Report (TTE) [facility] ECH O HEARTLAB Demographics [facility] Patient Name FARA MATHEWS e of Study 09/19/2019 BIMAL Gender Female Visit Number [id number] R rob Unknown Room Number 2047 Number Date of 1960 Aaliyah Hammer Physician Age 59 year(s) 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 Clinical History HGB 8.4 HCT 25.5 % THROMBOCYTOPENIA, ITP, MDS, HX OF LEU[place] JO ANN Height: 60 inches Weight: 59.87 kg (132 lbs) BSA: 1.56 m^2 BMI: 25.78 kg/m^2 HR: 72 bpm BP: 168/78 mmHg Summary 1. Normal LV size. All LV segments are hyperkinetic LVEF by Aguilar's method of disk assess ment is increased (>70%) 2. Normal RV size and function. 3. Estimated peak systolic PA pressure is 30-35 mmHg (normal range) . 4. Normal diastolic function. Previous Study No prior studies available for comparis on. Signature Findings Technical Quality: Technically adequate exam. Left Ventricle The left ro tricle is chamber size (by vol index) is n ormal (female - LVED vol - 29-61ml/m2). No evid ence of LV hypertrophy. All LV segments are hype rkinetic . Global LV systolic function hype rdynamic . LVEF by Aguilar's method of disk asse ssment is increased (>70%) . Normal diastolic func tion. Left Atrium LA size is normal (16-34 ml/m2) . Right Ventricle The right ve ntricular chamber size and systolic func tion are within normal limits. Right Atrium RA size is normal. Aortic Valve Mild AoV cu sp thickening. A tr rob of aortic regurgitation. Mitral Valve Mild MV ana flet thickening. Mild mitral regurgitation. Tricuspid Valve TV structure is normal. Mild tricuspid regurgitation. [place] mated peak systolic PA pressure is 30-35 mmHg (nor mal range) . Pulmonic Valve Normal PV st ructure and function by limited views and Doppler. Aorta Aortic root size (SInus of Valsalva diameter) is norm al . Pericardium No pericar dial effusion is visualized. IVC/SVC/PA/PV/Pleural The estimated R A pressure by IVC dynamics 0-5mmHg . Chambers/Structures Left Atrium LA Volume: 32.2 ml LA Area: 13.79 cm^2 LA Vol. Index: 21 ml/m^2 Left Ventricle LVIDd: 4.35 cm LVIDs: 2.5 cm LV Septum Diastolic: 0.84 cm LV PW Diastolic: 0.81 cm LV FS: 42.5 % LVEDV Aguilar's:60.12 ml LVESV Aguilar's:12.1 ml LVEDVI: 39 ml/m^2 LVEF Aguilar's: 79.9 % LVESVI: 8 ml/m^2 LVOT Diameter: 2.12 cm Aorta Ao Root S of Angie.: 2.87 cm Doppler/Quantitative Measurements Mitral Valve MV Peak E-Wave: 0.75 m/s MV Peak A-Wave: 0.75 m/s E/A Ratio: 1 Peak Gradient: 2.24 mmHg Deceleration Time: 174.9 msec MV Josh. Peak: Aortic Valve Peak Velocity: 1.38 m/s Mean Velocity: 0.92 m/s Peak Gradient: 7.66 mmHg Mean Gradient: 3.96 mmHg AV Area (continuity): 2.8 cm^2 AV VTI: 25.23 cm AV DVI: 0.79 LVOT Peak Velocity: 0.98 m/s Peak Gradient: 3.85 mmHg Mean Velocity: 0.64 m/s Mean Gradient: 1.94 mmHg LVOT Diameter: 2.12 cm LVOT VTI: 20.02 cm LVOT Area: 3.53 cm^2 LVOT SV:70.63 ml LVOT CO: 5.09 l/min LVOT CI: 3.26 l/min/m^2 Tricuspid Valve TR Velocity: 2.61 m/s TR Gradient: 27.18 mmHg Procedure Note Interface, External Ris In - 09/19/2019 5:15 PM CDT Transthoracic Echocardiography Report (TTE) Demographics Patient Name FARA MATHEWS Date of Study 09/19/2019 BIMAL Gender Female Visit Number [id number] Race Unknown Room Number 2047 Number Date of 1960 Referring [place]udier Caitlyn Hammer Physician Age 59 year(s) 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 Clinical History HGB 8.4 HCT 25.5 % THROMBOCYTOPENIA, ITP, MDS, HX OF LEUKEMIA Height: 60 inches Weight: 59.87 kg (132 lbs) BSA: 1.56 m^2 BMI: 25.78 kg/m^2 HR: 72 bpm BP: 168/78 mmHg Summary 1. Normal LV size. All LV segments are hyperkinetic LVEF by Aguilar's method of disk assessment is increased (>70%) 2. Normal RV size and function. 3. Estimated peak systolic PA pressure is 30-35 mmHg (normal range) . 4. Normal diastolic function. Previous Study No prior studies available for comparison. Signature Findings Technical Quality: Technically adequate exam. Left Ventricle The left ventricle is chamber size (by vol index) is normal (female - LVED vol - 29-61ml/m2). No evidence of LV hypertrophy. All LV segments are hyperkinetic . Global LV systolic function hyperdynamic . LVEF by Aguilar's method of disk assessment is increased (>70%) . Normal diastolic function. Left Atrium LA size is normal (16-34 ml/m2) . Right Ventricle The right ventricular chamber size and systolic function are within normal limits. Right Atrium RA size is normal. Aortic Valve Mild AoV cusp thickening. A trace of aortic regurgitation. Mitral Valve Mild MV leaflet thickening. Mild mitral regurgitation. Tricuspid Valve TV structure is normal. Mild tricuspid regurgitation. Estimated peak systolic PA pressure is 30-35 mmHg (normal range) . Pulmonic Valve Normal PV structure and function by limited views and Doppler. Aorta Aortic root size (SInus of Valsalva diameter) is normal . Pericardium No pericardial effusion is visualized. IVC/SVC/PA/PV/Pleural The estimated RA pressure by IVC dynamics 0-5mmHg . Chambers/Structures Left Atrium LA Volume: 32.2 ml LA Area: 13.79 cm^2 LA Vol. Index: 21 ml/m^2 Left Ventricle LVIDd: 4.35 cm LVIDs: 2.5 cm LV Septum Diastolic: 0.84 cm LV PW Diastolic: 0.81 cm LV FS: 42.5 % LVEDV Aguilar's:60.12 ml LVESV Aguilar's:12.1 ml LVEDVI: 39 ml/m^2 LVEF Aguilar's: 79.9 % LVESVI: 8 ml/m^2 LVOT Diameter: 2.12 cm Aorta Ao Root S of Angie.: 2.87 cm Doppler/Quantitative Measurements Mitral Valve MV Peak E-Wave: 0.75 m/s MV Peak A-Wave: 0.75 m/s E/A Ratio: 1 Peak Gradient: 2.24 mmHg Deceleration Time: 174.9 msec MV Josh. Peak: Aortic Valve Peak Velocity: 1.38 m/s Mean Velocity: 0.92 m/s Peak Gradient: 7.66 mmHg Mean Gradient: 3.96 mmHg AV Area (continuity): 2.8 cm^2 AV VTI: 25.23 cm AV DVI: 0.79 LVOT Peak Velocity: 0.98 m/s Peak Gradient: 3.85 mmHg Mean Velocity: 0.64 m/s Mean Gradient: 1.94 mmHg LVOT Diameter: 2.12 cm LVOT VTI: 20.02 cm LVOT Area: 3.53 cm^2 LVOT SV:70.63 ml LVOT CO: 5.09 l/min LVOT CI: 3.26 l/min/m^2 Tricuspid Valve TR Velocity: 2.61 m/s TR Gradient: 27.18 mmHg Performing Organization Address City/State/Zipcode Ph one Number SLE ECHO HEARTLAB [facility] * D-dimer, quantitative (09/14/2019 11:00 AM CDT) D-Dimer, Quant 0.44 <0.50 MG/L FEU [facility] Specimen Blood Narrative Performed At Intended Use: The D-Dimer Assay can be used to aid in the diagnosis of Deep Vein [facility] Thrombosis (DVT) and Pulmonary Embolism Disease (PED) . [facility] In patients with low pre-test probabili ty, various studies concerning STA Liatest D-dimer test have reported that with a cutoff value of 0.50 MG/L FEU, the Negative Predictive Value (NPV) reg arding the exclusion of thrombosis is within 95-100% range. Performing Organization Address City/[facility]/Zipcode Ph one Number [facility] [address] [place], [place] [address] [facility] * DONI, manual (09/07/2019 2:59 PM CDT) ABO Grouping O [facility] Rh Factor POS [facility] Specimen Blood Performing Organization Address City/State/Zipcode Ph one Number [facility] [address] [place] [address] [phone] [facility] * Peripheral Blood Smear - Path Review (09/07/2019 2:37 PM CDT) Pathologist Circulating blasts present, No [facility] Review Favio rods identified. Reported [facility] to ER physician Dr. Cruz [facility] on 09/07/2019. Pathologist: Jeremy Donahue [facility] Pang(electronic signature) [facility] Specimen Blood Performing Organization Address City/[facility] Ph one Number [facility] [address] [place] [address] [facility] after 04/18/2019 Insurance Type Payer Benefit Subscriber ID Effective Phone Address Plan / Dates Group [employer] BCBS ADV [id number] 2019-P [phone] [id number] [place] [phone] Advance Directives For more information, please contact: [phone] Date Inactivated Comments Code Status Date Activated 04/13/2020 12:13 PM Full Code 04/03/2020 8:39 PM This code status was determined by: Patient 03/12/2020 3:43 PM Full Code 03/08/2020 8:06 PM This code status was determined by: Patient 03/08/2020 8:04 PM Full Code 03/08/2020 5:00 PM This code status was determined by: Patient 02/27/2020 8:06 PM Full Code 02/22/2020 2:48 PM This code status was determined by: Patient 01/04/2020 1:45 PM Full Code 12/29/2019 4:51 PM This code status was determined by: Patient
--- OUTSIDE RECORDS SUMMARY | 2020-04-19 10:03 | XMS REPORT | Continuity of Care Document ---
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 2020-03-27 09:31:00 Carrharriet, Chalo Mary COMPREHENSIVE METABOLIC PANEL 2020-03-27 09:31:00 CarrPato thomas LDH 2020-03-27 09:31:00 CarrPato thomas [facility] URIC ACID LEVEL 2020-03-27 09:31:00 CarrPato thomas odjusta PHOSPHORUS LEVEL 2020-03-27 09:31:00 CarrPato thomas Met [facility] MAGNESIUM LEVEL 2020-03-27 09:31:00 Pato Olea odjusta URINALYSIS SCREEN AND MICROSCOPY, WITH REFLEX TO CULTURE 202 09:31:00 Pato Olea TYPE AND SCREEN 2020-03-27 09:31:00 CarrPato thomas B NATRIURETIC PEPTIDE 2020-03-27 09:31:00 Pato Olea ESTIMATED GFR 2020-03-27 09:31:00 Pato Olea SMEAR REVIEW 2020-03-27 09:31:00 Pato Olea CV STRESS TEST NUCLEAR CARDIO 2020-03-25 12:19:41 Pato Olea NM MYOCARDIAL PERFUSION STRESS REST 2 DAY 2020-03-25 12:19:41 Ca rrPato thomas XR CHEST 2 VW 2020-03-18 14:25:26 Pato Olea SPIROMETRY, DIFFUSION, LUNG VOLUMES 2020-03-18 13:20:01 Pato Olea PREPARE LEUKO-REDUCED AND IRRADIATED PLATELETS 2020-03-12 23 :54:00 [facility] BASIC METABOLIC PANEL (7) 2020-03-12 05:05:00 Oleg Tang [facility] CBC W/PLT COUNT & AUTO DIFFERENTIAL 2020-03-12 05:05:00 Marya Tang [facility] (CELLAVISION MANUAL DIFF) 2020-03-12 05:05:00 Oleg Tang [facility] VORICONAZOLE LEVEL 2020-03-12 05:04:00 Chayito Smiley [facility] TRANSFUSE LEUKO-REDUCED AND IRRADIATED PLATELETS 2020-03-11 13:37:00 [facility] BASIC METABOLIC PANEL (7) 2020-03-11 05:35:00 Oleg Tang [facility] CBC W/PLT COUNT & AUTO DIFFERENTIAL 2020-03-11 05:35:00 Marya Tang [facility] (CELLAVISION MANUAL DIFF) 2020-03-11 05:35:00 Oleg Tang [facility] PREPARE RBC 2020-03-10 23:54:00 Oleg Tang [facility] VANCOMYCIN LEVEL, TROUGH 2020-03-10 21:08:00 Chayito Smiley [facility] BASIC METABOLIC PANEL (7) 2020-03-10 04:38:00 Oleg Tang [facility] CBC W/PLT COUNT & AUTO DIFFERENTIAL 2020-03-10 04:38:00 Marya Tang [facility] (CELLAVISION MANUAL DIFF) 2020-03-10 04:38:00 Oleg Tang [facility] MISCELLANEOUS LAB ORDER 2020-03-10 04:37:00 Betina Linares [facility] ASPERGILLUS GALACTOMANNAN ANTIGEN 2020-03-10 04:37:00 Betina Linares [facility] CT MAXILLOFACIAL WITH IV CONTRAST 2020-03-10 03:12:00 Betina Linares [facility] FUNGUS CULTURE, BLOOD (ISOLATOR) 2020-03-09 13:18:00 Betina Linares [facility] BASIC METABOLIC PANEL (7) 2020-03-09 06:51:00 Trae Trejo [facility] HEPATIC FUNCTION PANEL 2020-03-09 06:51:00 Trae Trejo [facility] MAGNESIUM 2020-03-09 06:51:00 Trae Trejo [facility] PHOSPHORUS 2020-03-09 06:51:00 [facility]/INR 2020-03-09 06:51:00 Trae Trejo [facility] CBC W/PLT COUNT & AUTO DIFFERENTIAL 2020-03-09 06:51:00 Enmanuel Trejo [facility] (CELLAVISION MANUAL DIFF) 2020-03-09 06:51:00 Trae Trejo [facility] TRANSFUSE LEUKO-REDUCED RED BLOOD CELLS 2020-03-09 02:49:19 Trae Trejo [facility] CT ABDOMEN/PELVIS WITH IV CONTRAST 2020-03-08 21:40:00 Daren Trejo [facility] URINALYSIS W/ REFLEX URINE CULTURE 2020-03-08 21:11:00 Daren Trejo [facility] XR CHEST 1 VIEW PORTABLE/BEDSIDE 2020-03-08 19:20:00 ClydeBradlymichi Dillon [facility] PREPARE RBC 2020-03-08 17:10:00 Transfusion Service, Onesimo jurado [facility] MAGNESIUM 2020-03-08 15:55:00 Eli, [facility] PHOSPHORUS 2020-03-08 15:55:00 Eli, [facility] PT/APTT 2020-03-08 15:55:00 Eli, [facility] COMPREHENSIVE METABOLIC PANEL 2020-03-08 15:55:00 Eli, Param pérez [facility] LACTIC ACID, VENOUS 2020-03-08 15:55:00 Eli, [facility] CREATINE KINASE (CK) 2020-03-08 15:55:00 Eli, [facility] LIPASE 2020-03-08 15:55:00 Trae Trejo [facility] TYPE AND SCREEN, AUTOMATED 2020-03-08 15:55:00 Eli, Param gonzalez [facility] CBC W/PLT COUNT & AUTO DIFFERENTIAL 2020-03-08 15:55:00 Eli, Lamin davis [facility] (CELLAVISION MANUAL DIFF) 2020-03-08 15:55:00 Eli, Param benz [facility] BLOOD CULTURE 2020-03-08 15:54:00 Eli, [facility] BLOOD CULTURE IDENTIFICATION PANEL 2020-03-08 15:54:00 Eli, Luca alarcon [facility] CRITICAL CARE 2020-03-08 15:32:14 Eli, [facility] PREPARE LEUKO-REDUCED PLATELETS 2020-03-07 23:54:00 Steph White [facility] TRANSFUSION SERVICE REPORT - SCAN 2020-03-06 18:05:00 Provid er, Default Scanning [facility] CBC W/PLT COUNT & AUTO DIFFERENTIAL 2020-03-06 13:17:00 Caitlyn White [facility] (CELLAVISION MANUAL DIFF) 2020-03-06 13:17:00 Caitlyn White [facility] TRANSFUSE LEUKO-REDUCED AND IRRADIATED PLATELETS 2020-03-06 12:27:35 Caitlyn White [facility] PREPARE LEUKO-REDUCED AND IRRADIATED PLATELETS 2020-03-05 23:54: 00 Vasquez [facility] TRANSFUSION SERVICE REPORT - SCAN 2020-03-05 18:04:29 Provid er, Default Scanning [facility] PREPARE RBC 2020-03-04 17:51:00 Ellis Bonilla [facility] CBC W/PLT COUNT & AUTO DIFFERENTIAL 2020-03-04 17:08:00 Vasquez [facility] (CELLAVISION MANUAL DIFF) 2020-03-04 17:08:00 Elsie Vasquez [facility] TRANSFUSE LEUKO-REDUCED AND IRRADIATED PLATELETS 2020-03-04 16:06:31 Vasquez [facility] COMPREHENSIVE METABOLIC PANEL 2020-03-04 12:28:00 Ellis Bonilla [facility] TYPE AND SCREEN, AUTOMATED 2020-03-04 12:28:00 Ellis Bonilla [facility] CBC W/PLT COUNT & AUTO DIFFERENTIAL 2020-03-04 12:28:00 Jorden Bonilla [facility] (MANUAL DIFFERENTIAL) 2020-03-04 12:28:00 [facility] FAMILY TYPING (HAPLOTYPE REPORT) 2020-03-03 11:52:00 Jasen Olea Religion BASIC METABOLIC PANEL (7) 2020-02-27 04:58:00 Gisele, Pratik Hyunn a [facility] MAGNESIUM 2020-02-27 04:58:00 Gisele, Pratik Hyunna [facility] CBC W/PLT COUNT & AUTO DIFFERENTIAL 2020-02-27 04:58:00 Irving Jaquez yssa Hyunna [facility] (MANUAL DIFFERENTIAL) 2020-02-27 04:58:00 Donny Posada [facility] BASIC METABOLIC PANEL (7) 2020-02-26 03:58:00 Gisele, Pratik Hyunn a [facility] MAGNESIUM 2020-02-26 03:58:00 Gisele, Pratik Hyunna [facility] TSH/FREE T4 IF INDICATED 2020-02-26 03:58:00 Posada, Donny Jhonny [facility] HEPATIC FUNCTION PANEL 2020-02-26 03:58:00 [facility] W/[facility] & AUTO DIFFERENTIAL 2020-02-26 03:58:00 Gisele, Al yssa Hyunna [facility] BASIC METABOLIC PANEL (7) 2020-02-25 03:53:00 Gisele, Pratik Hyunn a [facility] MAGNESIUM 2020-02-25 03:53:00 Gisele, Pratik Hyunna [facility] PHOSPHORUS 2020-02-25 03:53:00 Gisele, Pratik Hyunna [facility] URIC ACID 2020-02-25 03:53:00 Gisele, Pratik Hyunna [facility] CBC W/PLT COUNT & AUTO DIFFERENTIAL 2020-02-25 03:53:00 Gisele, Al yssa Hyunna [facility] (CELLAVISION MANUAL DIFF) 2020-02-25 03:53:00 Gisele, Pratik Hyunn a [facility] BASIC METABOLIC PANEL (7) 2020-02-24 04:11:00 Gisele, Pratik Hyunn a [facility] MAGNESIUM 2020-02-24 04:11:00 Gisele, Pratik Hyunna [facility] PHOSPHORUS 2020-02-24 04:11:00 Gisele, Pratik Hyunna [facility] URIC ACID 2020-02-24 04:11:00 Gisele, Pratik Hyunna [facility] CBC W/PLT COUNT & AUTO DIFFERENTIAL 2020-02-24 04:11:00 Gisele, Al yssa Hyunna [facility] BASIC METABOLIC PANEL (7) 2020-02-23 06:06:00 Gisele, Pratik Hyunn a [facility] MAGNESIUM 2020-02-23 06:06:00 Gisele, Pratik Clark [facility] PHOSPHORUS 2020-02-23 06:06:00 Gisele, Pratik Clark [facility] URIC ACID 2020-02-23 06:06:00 Gisele, Pratiksa Duenasa [facility] CBC W/PLT COUNT & AUTO DIFFERENTIAL 2020-02-23 06:06:00 Gisele, Irving Clark [facility] (CELLAVISION MANUAL DIFF) 2020-02-23 06:06:00 Gisele, Pratik blanc [facility] BASIC METABOLIC PANEL (7) 2020-02-22 15:50:00 Gisele, Pratik blanc [facility] HEPATIC FUNCTION PANEL 2020-02-22 15:50:00 Gisele Pratik Clark [facility] MAGNESIUM 2020-02-22 15:50:00 Caitlyn White [facility] CBC W/PLT COUNT & AUTO DIFFERENTIAL 2020-02-22 15:50:00 GiseleIrving karl [facility] FAMILY TYPING (HAPLOTYPE REPORT) 2020-02-22 07:55:00 Jasen Olea TRANSFUSE PLATELET PHERESIS 2020-02-13 11:59:52 Caitlyn White TYPE AND SCREEN 2020-02-13 08:59:00 Caitlyn White ethodist PREPARE PLATELET PHERESIS 2020-02-13 08:59:00 Caitlyn White TRANSFUSION SERVICE REPORT - SCAN 2020-02-08 18:01:27 Provid er, Default Scanning [facility] BASIC METABOLIC PANEL (7) 2020-02-08 05:01:00 Bunny Roy [facility], [facility] MAGNESIUM 2020-02-08 05:01:00 Bunny Roy [facility] CBC W/PLT COUNT & AUTO DIFFERENTIAL 2020-02-08 05:01:00 Bunny Roy [facility] (CELLAVISION MANUAL DIFF) 2020-02-08 05:01:00 ManuelaBunny [facility] PREPARE LEUKO-REDUCED AND IRRADIATED RBC 2020-02-07 23:54:00 [facility] - SCAN 2020-02-07 18:01:29 Provid er, Default Scanning [facility] VANCOMYCIN LEVEL, TROUGH 2020-02-07 07:52:00 BgMaren cortez [facility] BASIC METABOLIC PANEL (7) 2020-02-07 04:36:00 Manuela Bunny YANG [facility] MAGNESIUM 2020-02-07 04:36:00 Manuela [facility] CBC W/PLT COUNT & AUTO DIFFERENTIAL 2020-02-07 04:36:00 Manuela [facility] (MANUAL DIFFERENTIAL) 2020-02-07 04:36:00 Leon Sena [facility] PREPARE LEUKO-REDUCED PLATELETS 2020-02-06 23:54:00 Josesito Lincoln [facility] ECG 12-LEAD 2020-02-06 20:34:48 Unknown, Hl7 Doctor [facility] TRANSFUSION SERVICE REPORT - SCAN 2020-02-06 18:01:02 Provid er, Default Scanning [facility] TRANSFUSE LEUKO-REDUCED AND IRRADIATED RED BLOOD CELLS 02-05 13:33:02 Abdulkadir Muller [facility] URINALYSIS W/ REFLEX URINE CULTURE 2020-02-06 05:41:00 Muna Roy [facility] BASIC METABOLIC PANEL (7) 2020-02-06 04:19:00 Manuela Bunny [facility] MAGNESIUM 2020-02-06 04:19:00 Manuela [facility] CBC W/PLT COUNT & AUTO DIFFERENTIAL 2020-02-06 04:19:00 Manuela [facility] (CELLAVISION MANUAL DIFF) 2020-02-06 04:19:00 Manuela [facility] TRANSFUSE LEUKO-REDUCED AND IRRADIATED PLATELETS 2020-02-05 22:30:01 Manuela [facility] TRANSFUSE LEUKO-REDUCED AND IRRADIATED PLATELETS 2020-02-05 21:20:33 Manuela Bunny [facility] CT MAXILLOFACIAL WITH IV CONTRAST 2020-02-05 19:58:00 [facility] 2020-02-05 18:33:00 Manuela Bunny [facility] BLOOD CULTURE 2020-02-05 18:20:00 [facility] BASIC METABOLIC PANEL (7) 2020-02-05 18:20:00 Nakita Lincoln [facility] TYPE AND SCREEN, AUTOMATED 2020-02-05 18:20:00 Nakita Lincoln [facility] CRITICAL CARE 2020-02-05 16:20:48 Latonia [facility] XR CHEST 1 VIEW PORTABLE/BEDSIDE 2020-02-05 16:18:00 Jahaira Lincoln [facility] PROTHROMBIN TIME/INR 2020-02-05 15:28:00 Latonia [facility] CBC W/PLT COUNT & AUTO DIFFERENTIAL 2020-02-05 15:27:00 Jorden Bonilla [facility] (CELLAVISION MANUAL DIFF) 2020-02-05 15:27:00 Ellis Bonilla [facility] COMPREHENSIVE METABOLIC PANEL 2020-01-28 04:54:00 Hung [facility] CBC W/PLT COUNT & AUTO DIFFERENTIAL 2020-01-28 04:54:00 Caitlyn White [facility] (CELLAVISION MANUAL DIFF) 2020-01-28 04:54:00 Caitlyn White [facility] COMPREHENSIVE METABOLIC PANEL 2020-01-27 03:42:00 Hung [facility] CBC W/PLT COUNT & AUTO DIFFERENTIAL 2020-01-27 03:42:00 Caitlyn White [facility] CT CHEST WITHOUT IV CONTRAST 2020-01-26 11:58:00 Caitlyn White [facility] COMPREHENSIVE METABOLIC PANEL 2020-01-26 04:29:00 EscudierHung [facility] CBC W/PLT COUNT & AUTO DIFFERENTIAL 2020-01-26 04:29:00 EscCaitlyn garcia [facility] (CELLAVISION MANUAL DIFF) 2020-01-26 04:29:00 Escradha [facility] FAMILY TYPING (HAPLOTYPE REPORT) 2020-01-25 11:24:00 Jasen Olea COMPREHENSIVE METABOLIC PANEL 2020-01-25 04:33:00 Escudier[facility] CBC W/PLT COUNT & AUTO DIFFERENTIAL 2020-01-25 04:33:00 EscCaitlyn garcia Nupur [facility] COMPREHENSIVE METABOLIC PANEL 2020-01-24 04:47:00 [facility] CBC W/PLT COUNT & AUTO DIFFERENTIAL 2020-01-24 04:47:00 Caitlyn White Nupur [facility] COMPREHENSIVE METABOLIC PANEL 2020-01-23 14:29:00 Posaad, Donny Velázquezo c [facility] MAGNESIUM 2020-01-23 14:29:00 Posada, Donny Jhonny [facility] CBC W/PLT COUNT & AUTO DIFFERENTIAL 2020-01-23 14:29:00 Posada, Dylan jurado Jhonny [facility] CYTOMEGALOVIRUS AB, IGG 2020-01-10 09:37:00 Pato Olea CYTOMEGALOVIRUS AB, IGM 2020-01-10 09:37:00 Pato Olea [facility] SEROLOGY TEST 2020-01-10 09:37:00 Pato Olea SEQUENCE BASED TYPING 2020-01-10 09:37:00 Pato Olea TRANSFUSION SERVICE REPORT - SCAN 2020-01-05 18:00:58 Provid er, Default Scanning [facility] PREPARE LEUKO-REDUCED AND IRRADIATED RBC 2020-01-04 23:54:00 Juan Kelly V. [facility] TRANSFUSION SERVICE REPORT - SCAN 2020-01-04 18:01:05 Provid er, Default Scanning [facility] BASIC METABOLIC PANEL (7) 2020-01-04 04:59:00 Gisele, Pratik Hyunn a [facility] MAGNESIUM 2020-01-04 04:59:00 Gisele, Pratik Hyunna [facility] CBC W/PLT COUNT & AUTO DIFFERENTIAL 2020-01-04 04:59:00 Gisele, [facility]ssa [facility] (CELLAVISION MANUAL DIFF) 2020-01-04 04:59:00 Gisele, Pratik Gerardounn a [facility] TRANSFUSE LEUKO-REDUCED AND IRRADIATED RED BLOOD CELLS 01-02 13:59:04 Juan Larkin V. [facility] PREPARE RBC 2020-01-03 09:35:00 [facility] BASIC METABOLIC PANEL (7) 2020-01-03 03:44:00 Gisele, Pratik Hyunn a [facility] MAGNESIUM 2020-01-03 03:44:00 Gisele, Pratik Hyunna [facility] CBC W/PLT COUNT & AUTO DIFFERENTIAL 2020-01-03 03:44:00 Gisele, Al yssa [facility] (CELLAVISION MANUAL DIFF) 2020-01-03 03:44:00 Gisele, Pratik Hyunn a [facility] TRANSFUSION SERVICE REPORT - SCAN 2020-01-02 18:01:54 Provid er, Default Scanning [facility] BASIC METABOLIC PANEL (7) 2020-01-02 04:13:00 Gisele, Pratik Hyunn a [facility] MAGNESIUM 2020-01-02 04:13:00 Gisele, Pratik Hyunna [facility] CBC W/PLT COUNT & AUTO DIFFERENTIAL 2020-01-02 04:13:00 Gisele, Al [facility]ssa [facility] (CELLAVISION MANUAL DIFF) 2020-01-02 04:13:00 Gisele, Pratik Hyunn a [facility] PREPARE PLATELETS 2020-01-01 23:54:00 Gisele, Pratik Hyunna [facility] TRANSFUSION SERVICE REPORT - SCAN 2020-01-01 18:21:14 Provid er, Default Scanning [facility] BASIC METABOLIC PANEL (7) 2020-01-01 04:56:00 Gisele, Pratik blanc [facility] MAGNESIUM 2020-01-01 04:56:00 Gisele, Pratiksa Duenasa [facility] CBC W/PLT COUNT & AUTO DIFFERENTIAL 2020-01-01 04:56:00 Gisele, Irving Clark [facility] (MANUAL DIFFERENTIAL) 2020-01-01 04:56:00 Gisele, Pratik Gerardokarl [facility] PREPARE LEUKO-REDUCED AND IRRADIATED RBC 2019-12-31 23:54:00 Gisele, Pratik Hysohaazam [facility] VANCOMYCIN LEVEL, TROUGH 2019-12-31 20:29:00 Chayito Smiley [facility] TRANSFUSE LEUKO-REDUCED AND IRRADIATED PLATELETS 2019-12-31 17:58:17 Abdulkadir Muller [facility] TYPE AND SCREEN, AUTOMATED 2019-12-31 09:27:00 Abdulkadir Muller [facility] BASIC METABOLIC PANEL (7) 2019-12-31 05:23:00 Gisele, Pratik blanc [facility] MAGNESIUM 2019-12-31 05:23:00 Gisele, Pratik Clark [facility] CBC W/PLT COUNT & AUTO DIFFERENTIAL 2019-12-31 05:23:00 Gisele, Irving Clark [facility] (CELLAVISION MANUAL DIFF) 2019-12-31 05:23:00 Gisele, Pratik Carrillosoha a [facility] TRANSFUSION SERVICE REPORT - SCAN 2019-12-30 18:02:40 Provid er, Default Scanning [facility] TRANSFUSION SERVICE REPORT - SCAN 2019-12-30 18:00:49 Provid er, Default Scanning [facility] BASIC METABOLIC PANEL (7) 2019-12-30 05:11:00 Gisele, Pratik Carrillounn a [facility] MAGNESIUM 2019-12-30 05:11:00 GiselePratik turner [facility] CBC W/PLT COUNT & AUTO DIFFERENTIAL 2019-12-30 05:11:00 GiseleIrving turner [facility] (MANUAL DIFFERENTIAL) 2019-12-30 05:11:00 Pratik Jaquez [facility] TRANSFUSE LEUKO-REDUCED AND IRRADIATED RED BLOOD CELLS 12-29 03:51:32 Gisele, Pratik Clark [facility] PREPARE LEUKO-REDUCED AND IRRADIATED PLATELETS 2019-12-29 23 :54:00 EscudiCaitlyn randolph [facility] RESPIRATORY PANEL [facility] 2019-12-29 20:26:00 GiselePratik turner [facility] LACTIC ACID, VENOUS 2019-12-29 20:24:00 Eli [facility] URINALYSIS W/ REFLEX URINE CULTURE 2019-12-29 19:09:00 Luca Benitez [facility] FUNGUS CULTURE, BLOOD (ISOLATOR) 2019-12-29 18:32:00 Katya Benitez [facility] TRANSFUSION SERVICE REPORT - SCAN 2019-12-29 18:03:33 Provid er, Default Scanning [facility] SARS-COV2/RT-PCR ([facility] & REF LABS) 2019-12-29 17:56:00 Luca Benitez [facility] BLOOD CULTURE 2019-12-29 17:54:00 Eli [facility] LACTIC ACID, VENOUS 2019-12-29 17:49:00 Eli [facility] CBC W/PLT COUNT & AUTO DIFFERENTIAL 2019-12-29 17:49:00 Lamin Benitez [facility] (CELLAVISION MANUAL DIFF) 2019-12-29 17:49:00 Param Benitez [facility] BLOOD CULTURE 2019-12-29 17:48:00 Eli [facility] COMPREHENSIVE METABOLIC PANEL 2019-12-29 17:48:00 Param Benitez [facility] PROTHROMBIN TIME/INR 2019-12-29 17:48:00 Param Benitez [facility] APTT 2019-12-29 17:48:00 Param Benitez [facility] XR CHEST 1 VIEW PORTABLE/BEDSIDE 2019-12-29 16:55:00 Katya Benitez [facility] CRITICAL CARE 2019-12-29 16:51:08 Param Benitez [facility] TRANSFUSION SERVICE REPORT - SCAN 2019-12-28 18:04:22 Provid er, Default Scanning [facility] TRANSFUSE LEUKO-REDUCED AND IRRADIATED PLATELETS 2019-12-28 12:18:20 Caitlyn White Nupur [facility] TYPE AND SCREEN, AUTOMATED 2019-12-27 13:48:00 Caitlyn White [facility] TRANSFUSION SERVICE REPORT - SCAN 2019-12-24 18:00:50 Provid er, Default Scanning [facility] PREPARE LEUKO-REDUCED AND IRRADIATED RBC 2019-12-23 23:54:00 Caitlyn Cha [facility] TRANSFUSION SERVICE REPORT - SCAN 2019-12-23 18:00:45 Provid er, Default Scanning [facility] TRANSFUSE LEUKO-REDUCED AND IRRADIATED RED BLOOD CELLS 12-21 17:46:35 Caitlyn White [facility] TYPE AND SCREEN, AUTOMATED 2019-12-22 13:04:00 Caitlyn White [facility] MAGNESIUM 2019-12-22 05:15:00 Pratik Jaquez [facility] COMPREHENSIVE METABOLIC PANEL 2019-12-22 05:15:00 Hung White [facility] CBC W/PLT COUNT & AUTO DIFFERENTIAL 2019-12-22 05:15:00 Irving Jaquez yssa [facility] (CELLAVISION MANUAL DIFF) 2019-12-22 05:15:00 Pratik Jaquezunn a [facility] MAGNESIUM 2019-12-21 04:48:00 Gisele Pratik Hyunna [facility] COMPREHENSIVE METABOLIC PANEL 2019-12-21 04:48:00 EscudiHung randolph [facility] CBC W/PLT COUNT & AUTO DIFFERENTIAL 2019-12-21 04:48:00 Gisele, Irving Duenasa [facility] (CELLAVISION MANUAL DIFF) 2019-12-21 04:48:00 Gisele, Pratik Hyunn a [facility] MAGNESIUM 2019-12-20 04:34:00 Gisele, Pratik Hyunna [facility] COMPREHENSIVE METABOLIC PANEL 2019-12-20 04:34:00 EscudierHung [facility] CBC W/PLT COUNT & AUTO DIFFERENTIAL 2019-12-20 04:34:00 Gisele, Irving Duenasa [facility] (CELLAVISION MANUAL DIFF) 2019-12-20 04:34:00 Gisele, Pratik Hyunn a [facility] MAGNESIUM 2019-12-19 04:18:00 Gisele, Pratik Hyunna [facility] PHOSPHORUS 2019-12-19 04:18:00 Gisele, Pratik Hyunna [facility] COMPREHENSIVE METABOLIC PANEL 2019-12-19 04:18:00 EscudierHung [facility] CBC W/PLT COUNT & AUTO DIFFERENTIAL 2019-12-19 04:18:00 Gisele, Irving Duenasa [facility] (CELLAVISION MANUAL DIFF) 2019-12-19 04:18:00 Gisele, Pratik Hyunn a [facility] MAGNESIUM 2019-12-18 04:37:00 Gisele, Pratik Hyunna [facility] PHOSPHORUS 2019-12-18 04:37:00 Gisele, Pratik Hyunna [facility] COMPREHENSIVE METABOLIC PANEL 2019-12-18 04:37:00 EscudierHung [facility] CBC W/PLT COUNT & AUTO DIFFERENTIAL 2019-12-18 04:37:00 Gisele, Al nimesh Hysohaa [facility] HEPATIC FUNCTION PANEL 2019-12-17 17:55:00 Gisele, Pratik [facility] PHOSPHORUS 2019-12-17 17:55:00 Gisele, Pratik [facility] PROTHROMBIN TIME/INR 2019-12-17 17:55:00 [facility] 2 VIEWS 2019-12-17 15:51:00 Gisele, Pratik [facility] SARS-COV2/RT-PCR ([facility] REF LABS) 2019-12-17 14:14:00 Gisele, Iván ramirez [facility] COMPREHENSIVE METABOLIC PANEL 2019-12-17 13:19:00 Hung White [facility] MAGNESIUM 2019-12-17 13:19:00 [facility] W/PLT COUNT & AUTO DIFFERENTIAL 2019-12-17 13:19:00 Caitlyn White Nupur [facility] (CELLAVISION MANUAL DIFF) 2019-12-17 13:19:00 Caitlyn White [facility] BASIC METABOLIC PANEL (7) 2019-11-29 04:41:00 Leon Sena [facility] CBC W/PLT COUNT & AUTO DIFFERENTIAL 2019-11-29 04:41:00 Leon Sena [facility] (CELLAVISION MANUAL DIFF) 2019-11-29 04:41:00 Leon Sena [facility] CHROMOSOMES CANCER STUDY 2019-11-28 14:08:00 EscCaitlyn garcia [facility] BONE MARROW PROCESS. 2019-11-28 12:30:00 Caitlyn White [facility] FLOW CYTOMETRY REQUISITION 2019-11-28 12:15:00 Caitlyn White [facility] BONE MARROW EXAM 2019-11-28 12:15:00 Caitlyn White [facility] FLOW CYTOMETRY 2019-11-28 12:15:00 Caitlyn White [facility] BASIC METABOLIC PANEL (7) 2019-11-28 05:16:00 Leon Sena [facility] CBC W/PLT COUNT & AUTO DIFFERENTIAL 2019-11-28 05:16:00 Leon Sena [facility] (CELLAVISION MANUAL DIFF) 2019-11-28 05:16:00 Leon Sena [facility] TRANSFUSION SERVICE REPORT - SCAN 2019-11-27 18:11:37 Provid er, Default Scanning [facility] 2D ECHO W/ DOPPLER (CW/PW/COLOR) 2019-11-27 13:54:57 Marya White [facility] VORICONAZOLE LEVEL 2019-11-27 08:46:00 Betina Linares [facility] COMPREHENSIVE METABOLIC PANEL 2019-11-27 05:47:00 Hung White [facility] CBC W/PLT COUNT & AUTO DIFFERENTIAL 2019-11-27 05:47:00 [facility] (CELLAVISION MANUAL DIFF) 2019-11-27 05:47:00 [facility] Leon Le [facility] PREPARE RBC 2019-11-26 23:54:00 [facility] FUNGUS CULTURE, BLOOD (ISOLATOR) 2019-11-26 11:58:00 Betina Linares [facility] CT CHEST WITHOUT IV CONTRAST 2019-11-26 10:25:00 Calli Linares cia [facility] BASIC METABOLIC PANEL (7) 2019-11-26 04:43:00 NeLeon ballesteros [facility] CBC W/PLT COUNT & AUTO DIFFERENTIAL 2019-11-26 04:43:00 Nathen Leon [facility] (CELLAVISION MANUAL DIFF) 2019-11-26 04:43:00 NeLeon ballesteros [facility] TRANSFUSION SERVICE REPORT - SCAN 2019-11-25 18:00:44 Provid er, Default Scanning [facility] BASIC METABOLIC PANEL (7) 2019-11-25 05:03:00 RoseLeon ballesteros [facility] CBC W/PLT COUNT & AUTO DIFFERENTIAL 2019-11-25 05:03:00 RoseLeon ballesteros [facility] (CELLAVISION MANUAL DIFF) 2019-11-25 05:03:00 Leon Sena [facility] PREPARE LEUKO-REDUCED AND IRRADIATED PLATELETS 2019-11-24 23 :54:00 [facility] TRANSFUSION SERVICE REPORT - SCAN 2019-11-24 18:01:21 Provid er, Default Scanning [facility] STOOL CULTURE + SHIGA TOXIN 2019-11-24 16:09:00 [facility]uco [facility] C. DIFFICILE GDH TOXIN 2019-11-24 16:09:00 Josse Cucosa Rhona zeng [facility] SHIGA TOXIN SCREEN 2019-11-24 16:09:00 Josse [facility] Cammy lipscomb [facility] STOOL PATH CHARGE 2019-11-24 16:09:00 Josse [facility] BASIC METABOLIC PANEL (7) 2019-11-24 05:19:00 NathenLeon [facility] CBC W/PLT COUNT & AUTO DIFFERENTIAL 2019-11-24 05:19:00 NathenLeon [facility] (CELLAVISION MANUAL DIFF) 2019-11-24 05:19:00 NathenLeon [facility] PREPARE LEUKO-REDUCED AND IRRADIATED RBC 2019-11-23 23:54:00 [facility] TRANSFUSE LEUKO-REDUCED AND IRRADIATED PLATELETS 2019-11-23 21:39:15 [facility] URINALYSIS W/ MICROSCOPIC 2019-11-23 19:47:00 Deanna Rosa [facility] TRANSFUSION SERVICE REPORT - SCAN 2019-11-23 18:01:18 Provid er, Default [facility]anning [facility] BASIC METABOLIC PANEL (7) 2019-11-23 05:20:00 Neason, Leon Le [facility] TYPE AND SCREEN, AUTOMATED 2019-11-23 05:20:00 Abdulkadir Muller [facility] CBC W/PLT COUNT & AUTO DIFFERENTIAL 2019-11-23 05:20:00 [facility] (MANUAL DIFFERENTIAL) 2019-11-23 05:20:00 [facility] PREPARE LEUKO-REDUCED PLATELETS 2019-11-22 23:54:00 [facility] TRANSFUSE LEUKO-REDUCED AND IRRADIATED RED BLOOD CELLS 11-21 22:25:25 Abdulkadir Muller [facility] TRANSFUSION SERVICE REPORT - SCAN 2019-11-22 18:01:52 Provid er, Default Scanning [facility] MR LOWER EXTREMITY WITH & WITHOUT IV CONTRAST LEFT 2019-10-30 5 09:37:00 Caitlyn Mcgraw [facility] MISCELLANEOUS LAB ORDER 2019-11-22 04:23:00 Caitlyn Mcgraw [facility] BLOOD CULTURE, ROUTINE ISOLATOR 2019-11-22 04:23:00 Anyi Mcgraw [facility] BASIC METABOLIC PANEL (7) 2019-11-22 04:23:00 Leon Sena [facility] CBC W/PLT COUNT & AUTO DIFFERENTIAL 2019-11-22 04:23:00 Nathen Leon [facility] (MANUAL DIFFERENTIAL) 2019-11-22 04:23:00 Nathen Leon [facility] ASPERGILLUS GALACTOMANNAN ANTIGEN 2019-11-22 04:22:00 Marya Mcgraw [facility] CRYPTOCOCCAL ANTIGEN 2019-11-22 04:22:00 Caitlyn Mcgraw [facility] ASPERGILLUS ANTIBODY,ID 2019-11-22 04:22:00 Caitlyn Mcgraw [facility] BLASTOMYCES ANTIBODY 2019-11-22 04:22:00 Caitlyn Mcgraw [facility] COCCIDIOIDES ANTIBODIES 2019-11-22 04:22:00 Caitlyn Mcgraw [facility] HISTOPLASMA AB,ID 2019-11-22 04:22:00 Caitlyn Mcgraw [facility] TRANSFUSION SERVICE REPORT - SCAN 2019-11-21 18:01:34 Provid er, Default [facility] XR CHEST 1 VIEW PORTABLE/BEDSIDE 2019-11-21 07:53:00 Loren Sena [facility] URINE CULTURE 2019-11-21 05:50:00 Leon Sena [facility] URINALYSIS W/ MICROSCOPIC 2019-11-21 05:50:00 Leon Sena [facility] BASIC METABOLIC PANEL (7) 2019-11-21 05:50:00 Leon Sena [facility] CBC W/PLT COUNT & AUTO DIFFERENTIAL 2019-11-21 05:50:00 [facility] (CELLAVISION MANUAL DIFF) 2019-11-21 05:50:00 Leon Sena [facility] TRANSFUSE LEUKO-REDUCED PLATELETS 2019-11-21 04:31:12 Dylan Sena [facility] TRANSFUSE LEUKO-REDUCED PLATELETS 2019-11-21 01:12:29 Dylan Sena [facility] WOUND CULTURE + GRAM STAIN 2019-11-20 23:12:00 Leon Sena [facility] BLOOD CULTURE 2019-11-20 20:30:00 Leon Sena [facility] BLOOD CULTURE 2019-11-20 20:24:00 [facility] TYPE AND SCREEN, AUTOMATED 2019-11-20 20:06:00 Leon Sena [facility] TRANSFUSION SERVICE REPORT - SCAN 2019-11-18 18:00:45 Provid er, Default Scanning [facility] PREPARE LEUKO-REDUCED AND IRRADIATED PLATELETS 2019-11-17 23 :54:00 Deepa Burnett [facility] PREPARE LEUKO-REDUCED AND IRRADIATED RBC 2019-11-17 23:54:00 Lico Carlna [facility] TRANSFUSION SERVICE REPORT - SCAN 2019-11-17 18:01:07 Provid er, Default Scanning [facility] TRANSFUSION SERVICE REPORT - SCAN 2019-11-16 18:01:21 Provid er, Default Scanning [facility] BASIC METABOLIC PANEL (7) 2019-11-16 09:28:00 Tracee [facility] CBC W/PLT COUNT & AUTO DIFFERENTIAL 2019-11-16 09:28:00 TraceeMelani moo [facility] (CELLAVISION MANUAL DIFF) 2019-11-16 09:28:00 Tracee [facility] TRANSFUSE LEUKO-REDUCED AND IRRADIATED PLATELETS 2019-11-16 06:31:50 Tracee [facility] TRANSFUSE LEUKO-REDUCED AND IRRADIATED PLATELETS 2019-11-16 04:45:03 [facility] TRANSFUSE LEUKO-REDUCED AND IRRADIATED RED BLOOD CELLS 11-15 03:00:59 Tracee [facility] TRANSFUSE LEUKO-REDUCED AND IRRADIATED RED BLOOD CELLS 11-14 23:48:00 Tracee [facility] SARS-COV2/RT-PCR ([facility] & REF LABS) 2019-11-15 19:09:00 Ellen Burnett [facility] CBC W/PLT COUNT & AUTO DIFFERENTIAL 2019-11-15 18:09:00 Melani Burnettrichie [facility] (CELLAVISION MANUAL DIFF) 2019-11-15 18:09:00 Tracee [facility] BASIC METABOLIC PANEL (7) 2019-11-15 18:07:00 [facility] TYPE AND SCREEN, AUTOMATED 2019-11-15 18:07:00 [facility] OF [facility] - ENDOSCOPY SCAN 2019-11-15 15:01:48 Pro vider, Default [facility] TRANSFUSION SERVICE REPORT - SCAN 2019-11-12 18:02:00 Provid er, Default Scanning [facility] PREPARE LEUKO-REDUCED AND IRRADIATED PLATELETS 2019-11-11 23 :54:[address] [facility] TRANSFUSION SERVICE REPORT - SCAN 2019-11-11 18:02:12 Provid er, Default [facility]anning [facility] TRANSFUSE LEUKO-REDUCED AND IRRADIATED PLATELETS 2019-11-10 17:44:16 [facility] 2019-11-10 16:13:[address] [facility] TYPE AND SCREEN, AUTOMATED 2019-11-10 14:47:00 Stefania [facility]uke [facility] 12-LEAD 2019-11-10 14:27:55 Unknown, Hl7 Doctor [facility] MAGNESIUM 2019-11-10 14:16:[address] [facility] COMPREHENSIVE METABOLIC PANEL 2019-11-10 14:16:00 Alayadiel Bou[facility]ilduke [facility] TROPONIN I 2019-11-10 14:16:[address] [facility] PHOSPHORUS 2019-11-10 14:16:00 Alao Titilola Esther [facility] B-TYPE NATRIURETIC FACTOR (BNP) 2019-11-10 14:16:[address] [facility] CBC W/PLT COUNT & AUTO DIFFERENTIAL 2019-11-10 14:16:[address] [facility] (CELLAVISION MANUAL DIFF) 2019-11-10 14:16:00 Alayadiel Bou[facility]acarilduke [facility] TRANSFUSION SERVICE REPORT - SCAN 2019-11-09 18:01:35 Provid er, Default [facility]anning [facility] PREPARE LEUKO-REDUCED AND IRRADIATED RBC 2019-11-08 23:54:00 Cuco Loaiza [facility] TRANSFUSION SERVICE REPORT - SCAN 2019-11-08 17:51:25 Provid er, Default [facility]anning [facility] TRANSFUSION SERVICE REPORT - SCAN 2019-11-07 18:10:48 Provid er, Default [facility]anning [facility] TRANSFUSE LEUKO-REDUCED AND IRRADIATED RED BLOOD CELLS 11-06 14:32:42 Josse [facility] COMPREHENSIVE METABOLIC PANEL 2019-11-07 05:03:00 Leon Sena [facility] CBC W/PLT COUNT & AUTO DIFFERENTIAL 2019-11-07 05:03:00 Gisele Irving nimesh [facility] (CELLAVISION MANUAL DIFF) 2019-11-07 05:03:00 GiseleIrvingPratik [facility] PREPARE LEUKO-REDUCED AND IRRADIATED PLATELETS 2019-11-06 23 :54:00 Josse [facility] TRANSFUSION SERVICE REPORT - SCAN 2019-11-06 18:51:27 Provid er, Default [facility]anning [facility] COMPREHENSIVE METABOLIC PANEL 2019-11-06 04:28:00 Leon Sena [facility] CBC W/PLT COUNT & AUTO DIFFERENTIAL 2019-11-06 04:28:00 Irving Jaquez nimesh [facility] (CELLAVISION MANUAL DIFF) 2019-11-06 04:28:00 Gisele, Pratik Duenas [facility] PREPARE LEUKO-REDUCED AND IRRADIATED PLATELETS 2019-11-05 23 :54:00 [facility] RE[facility] - SCAN 2019-11-05 17:50:40 Provid er, Default Scanning [facility] TRANSFUSE LEUKO-REDUCED AND IRRADIATED PLATELETS 2019-11-05 14:43:14 Coyabimael [facility] TYPE AND SCREEN, AUTOMATED 2019-11-05 09:59:00 Coyabimael Cuco [facility] COMPREHENSIVE METABOLIC PANEL 2019-11-05 04:23:00 Leon Sena [facility] CBC W/PLT COUNT & AUTO DIFFERENTIAL 2019-11-05 04:23:00 Gisele, Al yssa Hyunna [facility] (CELLAVISION MANUAL DIFF) 2019-11-05 04:23:00 Pratik Jaquez [facility] TRANSFUSE LEUKO-REDUCED AND IRRADIATED PLATELETS 2019-11-04 12:28:22 Pratik Jaquez [facility] COMPREHENSIVE METABOLIC PANEL 2019-11-04 04:35:00 Leon Sena [facility] CBC W/PLT COUNT & AUTO DIFFERENTIAL 2019-11-04 04:35:00 GiseleIrving turner [facility] (CELLAVISION MANUAL DIFF) 2019-11-04 04:35:00 Pratik Jaquez [facility] TRANSFUSION SERVICE REPORT - SCAN 2019-11-03 17:51:15 Provid er, Default [facility]anning [facility] COMPREHENSIVE METABOLIC PANEL 2019-11-03 05:18:00 Leon Sena [facility] CBC W/PLT COUNT & AUTO DIFFERENTIAL 2019-11-03 04:51:00 Gisele, Irving nimesh Clark [facility] (CELLAVISION MANUAL DIFF) 2019-11-03 04:51:00 GiseleLatonyasa Henrique [facility] PREPARE LEUKO-REDUCED AND IRRADIATED RBC 2019-11-02 23:54:00 Esc Caitlyn garcia [facility] TRANSFUSION SERVICE REPORT - SCAN 2019-11-02 17:51:43 Provid er, Default [facility] BLOOD CULTURE 2019-11-02 05:40:00 Michael Bansal [facility] BLOOD CULTURE 2019-11-02 05:25:00 Michael Bansal [facility] BASIC METABOLIC PANEL (7) 2019-11-02 05:25:00 Gisele Pratiksa Henrique blanc [facility] MAGNESIUM 2019-11-02 05:25:00 Bunny Roy [facility] CBC W/PLT COUNT & AUTO DIFFERENTIAL 2019-11-02 05:25:00 GiseleIrving nimesh Clark [facility] (CELLAVISION MANUAL DIFF) 2019-11-02 05:25:00 GiseleIrving turnernimesh Duenas [facility] TRANSFUSE LEUKO-REDUCED AND IRRADIATED RED BLOOD CELLS 10-31 16:58:59 Caitlyn White [facility] TYPE AND SCREEN, AUTOMATED 2019-11-01 09:18:00 Caitlyn White [facility] BASIC METABOLIC PANEL (7) 2019-11-01 04:44:00 Gisele Pratik blanc [facility] MAGNESIUM 2019-11-01 04:44:00 GiveonBunny [facility] HEPATIC FUNCTION PANEL 2019-11-01 04:44:00 Caitlyn White [facility] CBC W/PLT COUNT & AUTO DIFFERENTIAL 2019-11-01 04:44:00 Gisele Irving [facility] BASIC METABOLIC PANEL (7) 2019-10-31 05:32:00 Gisele Pratiknimesh blanc [facility] MAGNESIUM 2019-10-31 05:32:00 GiveonBunny [facility] CBC W/PLT COUNT & AUTO DIFFERENTIAL 2019-10-31 05:28:00 Gisele Irving pak [facility] (CELLAVISION MANUAL DIFF) 2019-10-31 05:28:00 Irving Jaquezyssa Gerardosoha [facility] TRANSFUSION SERVICE REPORT - SCAN 2019-10-30 17:51:05 Provid er, Default Scanning [facility] BASIC METABOLIC PANEL (7) 2019-10-30 04:49:00 Gisele Pratik Gerardosoha blanc [facility] MAGNESIUM 2019-10-30 04:49:00 GiveonBunny [facility] CREATINE KINASE (CK) 2019-10-30 04:49:00 Chayito Smiley [facility] CBC W/PLT COUNT & AUTO DIFFERENTIAL 2019-10-30 04:49:[address] [facility] (MANUAL DIFFERENTIAL) 2019-10-30 04:49:00 Leon Sena [facility] PREPARE LEUKO-REDUCED AND IRRADIATED PLATELETS 2019-10-29 23 :54:00 Timothy Fontaine [facility] TRANSFUSION SERVICE REPORT - SCAN 2019-10-29 17:50:50 Provid er, Default Scanning [facility] MISCELLANEOUS LAB ORDER 2019-10-29 12:39:00 Chayito Smiley [facility] ASPERGILLUS GALACTOMANNAN ANTIGEN 2019-10-29 12:33:00 Zena Smiley [facility] BARTONELLA SPECIES ABS, REFLEX TO TITER 2019-10-29 12:33:00 [facility] VANCOM[facility], TROUGH 2019-10-29 12:33:00 Baljit [facility] BASIC METABOLIC PANEL (7) 2019-10-29 04:47:00 Pratik Jaquez [facility] MAGNESIUM 2019-10-29 04:47:00 Giveon [facility] CBC W/PLT COUNT & AUTO DIFFERENTIAL 2019-10-29 04:47:00 Irving Jaquez [facility] (CELLAVISION MANUAL DIFF) 2019-10-29 04:47:00 Pratik Jaquez [facility] TRANSFUSION SERVICE REPORT - SCAN 2019-10-28 17:51:00 Provid er, Default Scanning [facility] TRANSFUSE LEUKO-REDUCED AND IRRADIATED PLATELETS 2019-10-28 11:35:40 Timothy Fontaine [facility] TYPE AND SCREEN, AUTOMATED 2019-10-28 08:00:00 Timothy Fontaine [facility] BASIC METABOLIC PANEL (7) 2019-10-28 05:56:00 Pratik Jaquez [facility] MAGNESIUM 2019-10-28 05:56:00 Giveon [facility] CBC W/PLT COUNT & AUTO DIFFERENTIAL 2019-10-28 05:56:00 Irving Jaquez [facility] (CELLAVISION MANUAL DIFF) 2019-10-28 05:56:00 Pratik Jaquez [facility] PREPARE LEUKO-REDUCED RBC 2019-10-27 23:54:00 Leon Sena [facility] TRANSFUSION SERVICE REPORT - SCAN 2019-10-27 17:51:47 Provid er, Default Scanning [facility] BASIC METABOLIC PANEL (7) 2019-10-27 05:48:00 GiselePratik turner [facility] MAGNESIUM 2019-10-27 05:48:00 Giveon [facility] CBC W/PLT COUNT & AUTO DIFFERENTIAL 2019-10-27 05:48:00 Irving Jaquez [facility] (MANUAL DIFFERENTIAL) 2019-10-27 05:48:00 Natanael Forbes [facility] URINALYSIS WITH MICROSCOPIC IF INDICATED 2019-10-26 22:56:00 Gary Daniel [facility] BLOOD CULTURE 2019-10-26 21:56:00 [facility] 2019-10-26 21:49:00 Daniel Vega [facility] TRANSFUSION SERVICE REPORT - SCAN 2019-10-26 17:51:54 Provid er, Default Scanning [facility] TRANSFUSE LEUKO-REDUCED RED BLOOD CELLS 2019-10-26 12:35:05 Leon Tucker [facility] BASIC METABOLIC PANEL (7) 2019-10-26 05:25:00 Pratik Jaquez [facility] MAGNESIUM 2019-10-26 05:25:00 Giveon, Bnuny [facility] CBC W/PLT COUNT & AUTO DIFFERENTIAL 2019-10-26 05:25:00 Irving Jaquez [facility] (CELLAVISION MANUAL DIFF) 2019-10-26 05:25:00 GiselePratik turner [facility] PREPARE LEUKO-REDUCED AND IRRADIATED PLATELETS 2019-10-25 23 :54:00 Abdulkadir Muller [facility] TRANSFUSION SERVICE REPORT - SCAN 2019-10-25 17:51:40 Provid er, Default Scanning [facility] BASIC METABOLIC PANEL (7) 2019-10-25 04:39:00 Pratik Jaquezsoha azam [facility] MAGNESIUM 2019-10-25 04:39:00 GiveBunny turner [facility] CBC W/PLT COUNT & AUTO DIFFERENTIAL 2019-10-25 04:39:00 Irving Jaquezsohaazam [facility] (CELLAVISION MANUAL DIFF) 2019-10-25 04:39:00 GiseleLatonya turnersa Duenas azam [facility] TRANSFUSE LEUKO-REDUCED AND IRRADIATED PLATELETS 2019-10-24 17:40:37 Abdulkadir Muller [facility] CT ABDOMEN/PELVIS WITH IV CONTRAST 2019-10-24 10:13:00 Caitlyn Mcgraw [facility] CT CHEST WITH IV CONTRAST 2019-10-24 10:13:00 Caitlyn Mcgraw [facility] CHROMOSOMES CANCER STUDY 2019-10-24 08:37:00 Natanael Forbes [facility] TYPE AND SCREEN, AUTOMATED 2019-10-24 08:18:00 Abdulkadir Muller [facility] BASIC METABOLIC PANEL (7) 2019-10-24 04:36:00 Irving Jaquezyssa Henrique blanc [facility] MAGNESIUM 2019-10-24 04:36:00 Bunny Roy [facility] CBC W/PLT COUNT & AUTO DIFFERENTIAL 2019-10-24 04:36:00 GiseleIrvingsa Carrillosohaazam [facility] (CELLAVISION MANUAL DIFF) 2019-10-24 04:36:00 Pratik Jaquez [facility] FLOW CYTOMETRY REQUISITION 2019-10-23 16:00:00 Abdulkadir Muller [facility] FLOW CYTOMETRY 2019-10-23 16:00:00 Abdulkadir Muller [facility] BONE MARROW PROCESS. 2019-10-23 15:30:00 Abdulkadir Muller [facility] BONE MARROW EXAM 2019-10-23 15:30:00 Abdulkadir Muller [facility] BASIC METABOLIC PANEL (7) 2019-10-23 04:45:00 Pratik Jaquez [facility] MAGNESIUM 2019-10-23 04:45:00 Manuela [facility] CBC W/PLT COUNT & AUTO DIFFERENTIAL 2019-10-23 04:45:00 Irving Jaquez [facility] (CELLAVISION MANUAL DIFF) 2019-10-23 04:45:00 Pratik Jaquezsoha azam [facility] BLOOD CULTURE 2019-10-22 20:53:00 Marcos Benavidez [facility] BLOOD CULTURE 2019-10-22 20:47:00 Marcos Benavidez [facility] XR CHEST 1 VIEW PORTABLE/BEDSIDE 2019-10-22 20:14:00 Germaine Benavidez [facility] TRANSFUSION SERVICE REPORT - SCAN 2019-10-22 17:50:29 Provid er, Default Scanning [facility] BASIC METABOLIC PANEL (7) 2019-10-22 05:01:00 Pratik Jaquezunn azam [facility] MAGNESIUM 2019-10-22 05:01:00 Manuela [facility] CBC W/PLT COUNT & AUTO DIFFERENTIAL 2019-10-22 05:01:00 Irving Jaquez [facility] (CELLAVISION MANUAL DIFF) 2019-10-22 05:01:00 Pratik Jaquezsoha azam [facility] PREPARE LEUKO-REDUCED RBC 2019-10-21 23:54:00 Leon Sena [facility] TRANSFUSION SERVICE REPORT - SCAN 2019-10-21 17:50:26 Provid er, Default Scanning [facility] BASIC METABOLIC PANEL (7) 2019-10-21 04:51:00 GiselePratikunn azam [facility] MAGNESIUM 2019-10-21 04:51:00 [facility] & AUTO DIFFERENTIAL 2019-10-21 04:51:00 Gisele, Irving beavers Gerardokarl [facility] (MANUAL DIFFERENTIAL) 2019-10-21 04:51:00 NeasonLeon [facility] PREPARE LEUKO-REDUCED AND IRRADIATED PLATELETS 2019-10-20 23 :54:00 Abdulkadir Muller [facility] TRANSFUSION SERVICE REPORT - SCAN 2019-10-20 17:51:12 Provid er, Default Scanning [facility] TRANSFUSE LEUKO-REDUCED RED BLOOD CELLS 2019-10-20 17:18:50 Neas on, Leon Costa [facility] BASIC METABOLIC PANEL (7) 2019-10-20 04:31:00 Pratik Jaquez [facility] MAGNESIUM 2019-10-20 04:31:00 Giveon [facility] CBC W/PLT COUNT & AUTO DIFFERENTIAL 2019-10-20 04:31:00 Irving Jaquez [facility] (CELLAVISION MANUAL DIFF) 2019-10-20 04:31:00 Pratik Jaquez Gerardosoha [facility] TRANSFUSE LEUKO-REDUCED AND IRRADIATED PLATELETS 2019-10-19 16:31:22 Abdulkadir Muller [facility] TYPE AND SCREEN, AUTOMATED 2019-10-19 13:08:00 Abdulkadir Muller [facility] VANCOMYCIN LEVEL, TROUGH 2019-10-19 10:57:00 Caitlyn Mcgraw [facility] BASIC METABOLIC PANEL (7) 2019-10-19 05:05:00 GiselePratik turner azam [facility] MAGNESIUM 2019-10-19 05:05:00 Giveon [facility] CBC W/PLT COUNT & AUTO DIFFERENTIAL 2019-10-19 05:05:00 Irving Jaquezsa Carrillosohaazam [facility] (MANUAL DIFFERENTIAL) 2019-10-19 05:05:00 NeasonLeon [facility] BASIC METABOLIC PANEL (7) 2019-10-18 04:30:00 GiselePratik turner [facility] MAGNESIUM 2019-10-18 04:30:00 GiveonBunny [facility] CBC W/PLT COUNT & AUTO DIFFERENTIAL 2019-10-18 04:30:00 Irving Jaquez [facility] (CELLAVISION MANUAL DIFF) 2019-10-18 04:30:00 Pratik Jaquez [facility] TRANSFUSION SERVICE REPORT - SCAN 2019-10-17 21:34:41 Provid er, Default Scanning [facility] BASIC METABOLIC PANEL (7) 2019-10-17 03:54:00 GiselePratik [facility] MAGNESIUM 2019-10-17 03:54:00 Giveon [facility] CBC W/PLT COUNT & AUTO DIFFERENTIAL 2019-10-17 03:54:00 GiseleIrving [facility] (MANUAL DIFFERENTIAL) 2019-10-17 03:54:00 NeLeon ballesteros [facility] PREPARE LEUKO-REDUCED AND IRRADIATED PLATELETS 2019-10-16 23 :54:00 Abdulkadir Muller [facility] TRANSFUSION SERVICE REPORT - SCAN 2019-10-16 19:25:27 Provid er, Default Scanning [facility] BASIC METABOLIC PANEL (7) 2019-10-16 05:31:00 Pratik Jaquez [facility] MAGNESIUM 2019-10-16 05:31:00 Giveon [facility] CBC W/PLT COUNT & AUTO DIFFERENTIAL 2019-10-16 05:31:00 Irving Jaquez [facility] (MANUAL DIFFERENTIAL) 2019-10-16 05:31:00 NeLeon ballesteros [facility] TRANSFUSE LEUKO-REDUCED AND IRRADIATED PLATELETS 2019-10-15 22:49:36 Renzo [facility] TYPE AND SCREEN, AUTOMATED 2019-10-15 18:02:00 Abdulkadir Muller [facility] TRANSFUSION SERVICE REPORT - SCAN 2019-10-15 17:50:42 Provid er, Default Scanning [facility] VANCOMYCIN LEVEL, TROUGH 2019-10-15 16:38:00 Dominga Borges [facility] BASIC METABOLIC PANEL (7) 2019-10-15 05:08:00 Pratik Jaquez [facility] MAGNESIUM 2019-10-15 05:08:00 Givejohnny [facility] CBC W/PLT COUNT & AUTO DIFFERENTIAL 2019-10-15 05:08:00 Irving Jaquez [facility] (CELLAVISION MANUAL DIFF) 2019-10-15 05:08:00 GiselePratik [facility] PREPARE LEUKO-REDUCED AND IRRADIATED PLATELETS 2019-10-14 23:54: 00 [facility] - SCAN 2019-10-14 17:50:39 Provid er, Default Scanning [facility] VITAMIN B12 AND FOLATE 2019-10-14 09:52:00 Manuela [facility] BASIC METABOLIC PANEL (7) 2019-10-14 05:27:00 Pratik Jaquezunn [facility] MAGNESIUM 2019-10-14 05:27:00 Giveon [facility] CBC W/PLT COUNT & AUTO DIFFERENTIAL 2019-10-14 05:27:00 Irving Jaquez [facility] (CELLAVISION MANUAL DIFF) 2019-10-14 05:27:00 Pratik Jaquez [facility] PREPARE LEUKO-REDUCED AND IRRADIATED RBC 2019-10-13 23:54:00 Esc Caitlyn garcia [facility] TRANSFUSION SERVICE REPORT - SCAN 2019-10-13 17:51:14 Provid er, Default Scanning [facility] TRANSFUSE LEUKO-REDUCED AND IRRADIATED PLATELETS 2019-10-13 12:53:52 [facility] BASIC METABOLIC PANEL (7) 2019-10-13 04:37:00 Gisele, Pratik Hyunn [facility] MAGNESIUM 2019-10-13 04:37[facility]00 [facility] & AUTO DIFFERENTIAL 2019-10-13 04:37:00 Irving Jaquezazam [facility] (MANUAL DIFFERENTIAL) 2019-10-13 04:37:00 Natanael Forbes [facility] TRANSFUSION SERVICE REPORT - SCAN 2019-10-12 17:51:24 Provid er, Default Scanning [facility] TRANSFUSE LEUKO-REDUCED AND IRRADIATED RED BLOOD CELLS 10-11 14:08:22 Caitlyn White [facility] CMV PCR, QUANTITATIVE 2019-10-12 11:04:00 Betina Linares [facility] MISCELLANEOUS LAB ORDER 2019-10-12 04:09:00 Betina Linares [facility] BASIC METABOLIC PANEL (7) 2019-10-12 04:09:00 Pratik Jaquez a [facility] CBC W/PLT COUNT & AUTO DIFFERENTIAL 2019-10-12 04:09:00 Irving Jaquez [facility] (CELLAVISION MANUAL DIFF) 2019-10-12 04:09:00 Pratik Jaquez a [facility] PREPARE LEUKO-REDUCED AND IRRADIATED PLATELETS 2019-10-11 23 :54:00 Caitlyn White [facility] CT CHEST WITH IV CONTRAST 2019-10-11 21:20:00 Betina Linares [facility] CT ABDOMEN/PELVIS WITH IV CONTRAST 2019-10-11 21:20:00 Betina Landers [facility] CT MAXILLOFACIAL WITH IV CONTRAST 2019-10-11 21:20:00 Danielle Bro [facility] TRANSFUSION SERVICE REPORT - SCAN 2019-10-11 17:51:01 Provid er, Default Scanning [facility] BASIC METABOLIC PANEL (7) 2019-10-11 04:18:00 GiseleIrvingPratik Hyunn a [facility] TYPE AND SCREEN, AUTOMATED 2019-10-11 04:18:00 GiseleIrvingPratik Gifty na [facility] CBC W/PLT COUNT & AUTO DIFFERENTIAL 2019-10-11 04:18:00 Irving Jaquez [facility] (MANUAL DIFFERENTIAL) 2019-10-11 04:18:00 RoseLeon ballesteros [facility] TRANSFUSE LEUKO-REDUCED AND IRRADIATED PLATELETS 2019-10-10 13:12:07 Caitlyn White [facility] XR CHEST 1 VIEW PORTABLE/BEDSIDE 2019-10-10 07:56:00 Betina Linares [facility] BLOOD CULTURE 2019-10-10 06:46:00 Betina Linares [facility] CBC W/PLT COUNT & AUTO DIFFERENTIAL 2019-10-10 05:28:00 NathenLorensanjiv Costa [facility] (CELLAVISION MANUAL DIFF) 2019-10-10 05:28:00 Leon Sena [facility] BASIC METABOLIC PANEL (7) 2019-10-10 04:34:00 Pratik Jaquez Henrique azam [facility] TRANSFUSION SERVICE REPORT - SCAN 2019-10-09 17:51:00 Provid er, Default Scanning [facility] BASIC METABOLIC PANEL (7) 2019-10-09 04:19:00 Pratik Jaquezsoha blanc [facility] CBC W/PLT COUNT & AUTO DIFFERENTIAL 2019-10-09 04:19:00 Irving Jaquez mellisa Henriqueazam [facility] (CELLAVISION MANUAL DIFF) 2019-10-09 04:19:00 GiseleIrvingPratik Henrique blanc [facility] PREPARE LEUKO-REDUCED PLATELETS 2019-10-08 23:54:00 Carlos Jimenez [facility] XR CHEST 1 VIEW PORTABLE/BEDSIDE 2019-10-08 23:27:00 Sara Patricia [facility] URINALYSIS W/ REFLEX URINE CULTURE 2019-10-08 21:33:00 Summer Reid [facility] BLOOD CULTURE 2019-10-08 20:16:00 Summer Patricia [facility] BLOOD CULTURE 2019-10-08 20:11:00 Belem Summershaina Pang I [facility] TRANSFUSION SERVICE REPORT - SCAN 2019-10-08 17:50:28 Provid er, Default Scanning [facility] VANCOMYCIN LEVEL, TROUGH 2019-10-08 16:17:00 Vijay Betina Kenzie [facility] BASIC METABOLIC PANEL (7) 2019-10-08 05:20:00 Gisele, Pratik Duenas [facility] CBC W/PLT COUNT & AUTO DIFFERENTIAL 2019-10-08 05:20:00 Gisele, Irving Duenasa [facility] (CELLAVISION MANUAL DIFF) 2019-10-08 05:20:00 Gisele, Pratik [facility] TRANSFUSION SERVICE REPORT - SCAN 2019-10-07 17:50:42 Provid er, Default Scanning [facility] TRANSFUSE LEUKO-REDUCED PLATELETS 2019-10-07 16:49:53 [facility] AND SCREEN, AUTOMATED 2019-10-07 10:11:00 Aquiles Jimenez [facility] BASIC METABOLIC PANEL (7) 2019-10-07 04:44:00 Gisele Pratik Duenas [facility] CBC W/PLT COUNT & AUTO DIFFERENTIAL 2019-10-07 04:44:00 Gisele, Irving [facility] (MANUAL DIFFERENTIAL) 2019-10-07 04:44:00 Leon Sena [facility] TRANSFUSION SERVICE REPORT - SCAN 2019-10-06 17:51:10 Provid er, Default Scanning [facility] PREPARE RBC 2019-10-06 05:04:00 Leon Sena [facility] BASIC METABOLIC PANEL (7) 2019-10-06 04:19:00 Gisele, Pratik Duenas [facility] CBC W/PLT COUNT & AUTO DIFFERENTIAL 2019-10-06 04:19:00 Gisele, Irving Clark [facility] (CELLAVISION MANUAL DIFF) 2019-10-06 04:19:00 GiselePratik turner [facility] PREPARE LEUKO-REDUCED PLATELETS 2019-10-05 23:54:00 NathenLorenu Nahun [facility] TRANSFUSION SERVICE REPORT - SCAN 2019-10-05 17:51:15 Provid er, Default Scanning [facility] VANCOMYCIN LEVEL, TROUGH 2019-10-05 14:41:00 Natanael Forbes [facility] BASIC METABOLIC PANEL (7) 2019-10-05 04:58:00 GiselePratik [facility] CBC W/PLT COUNT & AUTO DIFFERENTIAL 2019-10-05 04:58:00 GiseleIrving turner [facility] (MANUAL DIFFERENTIAL) 2019-10-05 04:58:00 NathenLorensanjiv Costa [facility] TRANSFUSION SERVICE REPORT - SCAN 2019-10-04 17:50:48 Provid er, Default Scanning [facility] TRANSFUSE LEUKO-REDUCED PLATELETS 2019-10-04 14:03:58 Caitlyn White [facility] BASIC METABOLIC PANEL (7) 2019-10-04 04:46:00 GiselePratik turner [facility] CBC W/PLT COUNT & AUTO DIFFERENTIAL 2019-10-04 04:46:00 Gisele, Irving Clark [facility] (CELLAVISION MANUAL DIFF) 2019-10-04 04:46:00 Gisele Pratik Duenas [facility] PREPARE LEUKO-REDUCED RBC 2019-10-03 23:54:00 NathenLorensanjiv Costa DYLAN [facility] TRANSFUSION SERVICE REPORT - SCAN 2019-10-03 20:10:55 Provid er, Default Scanning [facility] BASIC METABOLIC PANEL (7) 2019-10-03 05:21:00 Gisele Pratik Hyunn a [facility] CBC W/PLT COUNT & AUTO DIFFERENTIAL 2019-10-03 05:21:00 Gisele Irving yssa Eduardo [facility] (CELLAVISION MANUAL DIFF) 2019-10-03 05:21:00 Pratik Jaquez [facility] TRANSFUSE LEUKO-REDUCED RED BLOOD CELLS 2019-10-02 13:45:10 NeLeon mathew [facility] TYPE AND SCREEN, AUTOMATED 2019-10-02 08:17:00 Leon Sena [facility] BASIC METABOLIC PANEL (7) 2019-10-02 05:46:00 GiselePratik turner [facility] CBC W/PLT COUNT & AUTO DIFFERENTIAL 2019-10-02 05:46:00 GiseleIrving turner [facility] (CELLAVISION MANUAL DIFF) 2019-10-02 05:46:00 GiseleLatonya [facility]erResnick [facility] VANCOMYCIN LEVEL, TROUGH 2019-10-02 00:43:00 Josias PantojaOlindaCharisma [facility] TRANSFUSION SERVICE REPORT - SCAN 2019-10-01 18:00:15 Provid er, Default Scanning [facility] MAGNESIUM 2019-10-01 04:48:00 Donny Posada [facility] COMPREHENSIVE METABOLIC PANEL 2019-10-01 04:48:00 Hung White [facility] PT/APTT 2019-10-01 04:48:00 Caitlyn White [facility] CBC W/PLT COUNT & AUTO DIFFERENTIAL 2019-10-01 04:48:00 [facility]Irving [facility] ([facility] DIFF) 2019-10-01 04:48:00 GiselePratik turner [facility] PREPARE LEUKO-REDUCED AND IRRADIATED PLATELETS 2019-09-30 23 :54:00 Donny Posada Jhonny [facility] TRANSFUSION SERVICE REPORT - SCAN 2019-09-30 17:50:29 Provid er, Default Scanning [facility] CT ABDOMEN/PELVIS WITH IV CONTRAST 2019-09-30 16:50:00 Caitlyn White [facility] URINE CULTURE 2019-09-30 14:38:00 Caitlyn White [facility] BLOOD CULTURE 2019-09-30 10:46:00 Caitlyn White [facility] XR CHEST 1 VIEW PORTABLE/BEDSIDE 2019-09-30 10:43:00 Marya White [facility] BLOOD CULTURE 2019-09-30 10:38:00 Caitlyn White [facility] CBC W/PLT COUNT & AUTO DIFFERENTIAL 2019-09-30 05:03:00 Irving Jaquez [facility] (CELLAVISION MANUAL DIFF) 2019-09-30 05:03:00 Pratik Jaquez [facility] BASIC METABOLIC PANEL (7) 2019-09-30 05:02:00 GiseleLatonya turnerResnick [facility] TRANSFUSE LEUKO-REDUCED AND IRRADIATED PLATELETS 2019-09-29 12:17:43 Donny Posada [facility] BASIC METABOLIC PANEL (7) 2019-09-29 05:39:00 GiselePratik turner [facility] CBC W/PLT COUNT & AUTO DIFFERENTIAL 2019-09-29 05:39:00 Irving Jaquezbanner [facility] center[facility] (MANUAL DIFFERENTIAL) 2019-09-29 05:39:00 Leon Sena [facility] TRANSFUSION SERVICE REPORT - SCAN 2019-09-28 17:51:23 Provid er, Default Scanning [facility] BASIC METABOLIC PANEL (7) 2019-09-28 05:52:00 GiselePratik turner [facility] CBC W/PLT COUNT & AUTO DIFFERENTIAL 2019-09-28 05:52:[address] GiseleIrving turn[address] [facility] (CELLAVISION MANUAL DIFF) 2019-09-28 05:52:00 GiseleLatonya turnerResnick [facility] PREPARE LEUKO-REDUCED RBC 2019-09-27 23:54:00 Leon Sena [facility] TRANSFUSION SERVICE REPORT - SCAN 2019-09-27 18:00:52 Provid er, Default Scanning [facility] BASIC METABOLIC PANEL (7) 2019-09-27 05:03:00 Pratik Jaquez [facility] CBC W/PLT COUNT & AUTO DIFFERENTIAL 2019-09-27 05:03:00 Irving Jaquez [facility] (CELLAVISION MANUAL DIFF) 2019-09-27 05:03:00 Pratik Jaquez [facility] TRANSFUSE LEUKO-REDUCED RED BLOOD CELLS 2019-09-26 13:40:04 NeLeon mathew [facility] TYPE AND SCREEN, AUTOMATED 2019-09-26 08:58:00 Leon Sena [facility] BASIC METABOLIC PANEL (7) 2019-09-26 05:02:00 Pratik Jaquez [facility] URIC ACID 2019-09-26 05:02:00 EscCaitlyn garcia Nupur [facility] LACTATE DEHYDROGENASE (LDH) 2019-09-26 05:02:00 Caitlyn White [facility] CBC W/PLT COUNT & AUTO DIFFERENTIAL 2019-09-26 05:02:00 Irving Jaquezbanner [facility] center[facility] (CELLAVISION MANUAL DIFF) 2019-09-26 05:02:00 Pratik Jaquez [facility] URIC ACID 2019-09-25 05:20:00 Caitlyn White [facility] LACTATE DEHYDROGENASE (LDH) 2019-09-25 05:20:00 Caitlyn White [facility] COMPREHENSIVE METABOLIC PANEL 2019-09-25 05:20:00 Kristan Borges [facility] CBC W/PLT COUNT & AUTO DIFFERENTIAL 2019-09-25 05:20:00 Irving Jaquez [facility] (CELLAVISION MANUAL DIFF) 2019-09-25 05:20:00 Pratik Jaquez [facility] TRANSFUSION SERVICE REPORT - SCAN 2019-09-24 18:00:28 Provid er, Default Scanning [facility] BASIC METABOLIC PANEL (7) 2019-09-24 04:51:00 Gisele, Pratik Gerardosoha blanc [facility] URIC ACID 2019-09-24 04:51:00 EscudierCaitlyn Nupur [facility] LACTATE DEHYDROGENASE (LDH) 2019-09-24 04:51:00 EscudierCaitlyn [facility] CBC W/PLT COUNT & AUTO DIFFERENTIAL 2019-09-24 04:51:00 GiseleIrving turner Gerardokarl [facility] (CELLAVISION MANUAL DIFF) 2019-09-24 04:51:00 GiselePratik [facility] PREPARE LEUKO-REDUCED AND IRRADIATED PLATELETS 2019-09-23 23 :54:[address] [facility] [address] TRANSFUSION SERVICE REPORT - SCAN 2019-09-23 18:00:42 Provid er, Default Scanning [facility] BASIC METABOLIC PANEL (7) 2019-09-23 03:54:00 GiselePratik [facility] URIC ACID 2019-09-23 03:54:00 EscudierCaitlyn Nupur [facility] LACTATE DEHYDROGENASE (LDH) 2019-09-23 03:54:00 EscudierCaitlyn [facility] CBC W/PLT COUNT & AUTO DIFFERENTIAL 2019-09-23 03:54:00 GiseleIrvingsa Carrillobanner [facility] (CELLAVISION MANUAL DIFF) 2019-09-23 03:54:00 GiselePratik a [facility] TRANSFUSION SERVICE REPORT - SCAN 2019-09-22 18:01:09 Provid er, Default Scanning [facility] TRANSFUSE LEUKO-REDUCED AND IRRADIATED PLATELETS 2019-09-22 11:39:17 GiselePratik turner [facility] BASIC METABOLIC PANEL (7) 2019-09-22 05:10:00 GiseleIrvingPratik Hyunn a [facility] MAGNESIUM 2019-09-22 05:10:00 GiselePratik Hykarl [facility] PHOSPHORUS 2019-09-22 05:10:00 [facility]ID 2019-09-22 05:10:00 EscudiCaitlyn randolph [facility] LACTATE DEHYDROGENASE (LDH) 2019-09-22 05:10:00 EscudiCaitlyn randolph [facility] CBC W/PLT COUNT & AUTO DIFFERENTIAL 2019-09-22 05:10:00 [facility]leIrving [facility] ([facility] DIFF) 2019-09-22 05:10:00 GiseleIrvingPratik [facility] PREPARE LEUKO-REDUCED AND IRRADIATED RBC 2019-09-21 23:54:00 Gisele, [facility] TRANSFUSION SERVICE REPORT - SCAN 2019-09-21 18:00:57 Provid er, Default Scanning [facility] BASIC METABOLIC PANEL (7) 2019-09-21 04:17:00 GiseleLatonyaResnick [facility] MAGNESIUM 2019-09-21 04:17:00 [facility] 2019-09-21 04:17:00 Gisele, [facility] URIC ACID 2019-09-21 04:17:00 EscudiCaitlyn randolph [facility] LACTATE DEHYDROGENASE (LDH) 2019-09-21 04:17:00 EscudiCaitlyn randolph [facility] CBC W/PLT COUNT & AUTO DIFFERENTIAL 2019-09-21 04:17:00 GiseleIrving turner [facility] ([facility] MANUAL DIFF) 2019-09-21 04:17:00 Gisele [facility] TRANSFUSE LEUKO-REDUCED AND IRRADIATED RED BLOOD CELLS 09-19 14:19:02 Gisele, [facility] PREPARE RBC 2019-09-20 10:23:00 Gisele, [facility] ANTIBODY IDENTIFICATION 2019-09-20 09:59:00 Gisele, Pratiknimesh Clark [facility] BASIC METABOLIC PANEL (7) 2019-09-20 04:39:00 Gisele, Pratik Gerardosoha azam [facility] MAGNESIUM 2019-09-20 04:39:00 Gisele, Pratik Carrillosohaazam [facility] PHOSPHORUS 2019-09-20 04:39:00 Gisele, Pratik Gerardokarl [facility] URIC ACID 2019-09-20 04:39:00 Caitlyn White [facility] LACTATE DEHYDROGENASE (LDH) 2019-09-20 04:39:00 Caitlyn White [facility] TYPE AND SCREEN, AUTOMATED 2019-09-20 04:39:00 Gisele, Pratik quiroz [facility] CBC W/PLT COUNT & AUTO DIFFERENTIAL 2019-09-20 04:39:00 Gisele, Irving paksa Clark [facility] (CELLAVISION MANUAL DIFF) 2019-09-20 04:39:00 Gisele, Pratiknimesh blanc [facility] ECHOCARDIOGRAM REPORT - SCAN 2019-09-19 21:20:26 Ronny Waters lt [facility] IR TUNNELED DIALYSIS CATHETER 2019-09-19 18:35:00 Hung White [facility] ECG 12-LEAD 2019-09-19 15:24:05 Pratik Jaquez [facility] 2D ECHO W/ DOPPLER (CW/PW/COLOR) 2019-09-19 14:31:39 Marya White [facility] COMPREHENSIVE METABOLIC PANEL 2019-09-19 13:12:00 GiselePratik turner [facility] HEPATIC FUNCTION PANEL 2019-09-19 13:12:00 Caitlyn White [facility] MAGNESIUM 2019-09-19 13:12:00 Caitlyn White [facility] PT/APTT 2019-09-19 13:12:00 Caitlyn White [facility] CBC W/PLT COUNT & AUTO DIFFERENTIAL 2019-09-19 13:12:00 Irving Jaquez [facility] (CELLAVISION MANUAL DIFF) 2019-09-19 13:12:00 Pratik Jaquez [facility] REPORT OF PROCEDURE - ENDOSCOPY SCAN 2019-09-17 14:41:19 Pro vider, Default Scanning [facility] TRANSFUSION SERVICE REPORT - SCAN 2019-09-16 18:02:05 Provid er, Default Scanning [facility] PREPARE LEUKO-REDUCED AND IRRADIATED PLATELETS 2019-09-15 23 :54:00 Charles Sualo [facility] TRANSFUSION SERVICE REPORT - SCAN 2019-09-15 18:02:46 Provid er, Default Scanning [facility] TRANSFUSE LEUKO-REDUCED AND IRRADIATED PLATELETS 2019-09-14 15:20:35 Charles Saulo [facility] ECG 12-LEAD 2019-09-14 11:22:54 Unknown, Hl7 Doctor [facility] ECG 12-LEAD 2019-09-14 11:20:12 Unknown, Hl7 Doctor [facility] XR CHEST 1 VIEW PORTABLE/BEDSIDE 2019-09-14 11:18:00 Jose White [facility] CBC W/PLT COUNT & AUTO DIFFERENTIAL 2019-09-14 11:16:00 Saulo White [facility] (CELLAVISION MANUAL DIFF) 2019-09-14 11:16:00 Saulo White [facility] B-TYPE NATRIURETIC FACTOR (BNP) 2019-09-14 11:00:00 Sharon White [facility] TROPONIN I 2019-09-14 11:00:00 Saulo White [facility] LIPASE 2019-09-14 11:00:00 Saulo White [facility] HEPATIC FUNCTION PANEL 2019-09-14 11:00:00 Charles Saulo [facility] BASIC METABOLIC PANEL (7) 2019-09-14 11:00:00 Saulo White [facility] D-DIMER 2019-09-14 11:00:00 Saulo White [facility] TYPE AND SCREEN, AUTOMATED 2019-09-14 11:00:00 Saulo White [facility] TRANSFUSION SERVICE REPORT - SCAN 2019-09-09 17:51:49 Provid er, Default Scanning [facility] PREPARE LEUKO-REDUCED PLATELETS 2019-09-08 23:54:00 Muna Roper [facility] PREPARE LEUKO-REDUCED RBC 2019-09-08 23:54:00 Anthony [facility] TRANSFUSION SERVICE REPORT - SCAN 2019-09-08 17:52:04 Provid er, Default Scanning [facility] TRANSFUSE LEUKO-REDUCED RED BLOOD CELLS 2019-09-07 23:14:16 Anthony [facility] TRANSFUSE LEUKO-REDUCED PLATELETS 2019-09-07 18:08:43 Anthony [facility] ABORH, MANUAL 2019-09-07 14:59:00 Alexandra Mcdaniels [facility] PT/APTT 2019-09-07 14:38:00 Anthony [facility] BASIC METABOLIC PANEL (7) 2019-09-07 14:37:00 Anthony [facility] PERIPHERAL BLOOD SMEAR - PATHOLOGIST REVIEW 2019-09-07 14:37 :00 Anthony [facility] FLOW CYTOMETRY REQUISITION 2019-09-07 14:37:00 Anthony [facility] TYPE AND SCREEN, AUTOMATED 2019-09-07 14:37:00 Anthony [facility] FLOW CYTOMETRY 2019-09-07 14:37:00 Anthony [facility] CBC W/PLT COUNT & AUTO DIFFERENTIAL 2019-09-07 14:37:00 Andrew engel [facility] (CELLAVISION MANUAL DIFF) 2019-09-07 14:37:00 Mario Roper [facility] CBC WITH PLATELET AND DIFFERENTIAL 2019-08-22 05:49:00 Sondra Hernandez [facility] BASIC METABOLIC PANEL 2019-08-22 05:49:00 Oleg Pardo Religion ESTIMATED GFR 2019-08-22 05:49:00 Sondra Hernandez on Religion IMMATURE PLATELET FRACTION 2019-08-22 05:49:00 Sondra Hernandez [facility] MANUAL DIFFERENTIAL 2019-08-22 05:49:00 Sondra Hernandez [facility] SURGICAL PATHOLOGY REQUEST 2019-08-21 12:52:[address] BONE MARROW BX W ASP SAME SITE 2019-08-21 12:33:04 Sondra Hernandez Religion HEPATITIS ACUTE PANEL 2019-08-21 09:42:00 Sondra Hernandez Religion US ABDOMEN COMPLETE 2019-08-21 09:12:34 Flako Diane Religion CBC WITH PLATELET AND DIFFERENTIAL 2019-08-21 05:02:00 Sondra Hernandez Religion IMMATURE PLATELET FRACTION 2019-08-21 05:02:00 Sondra Hernandez Religion MANUAL DIFFERENTIAL 2019-08-21 05:02:00 Sondra Hernandez Religion TRANSFUSE RED BLOOD CELLS 2019-08-21 01:56:02 Flako Diane Religion TRANSFUSE RED BLOOD CELLS 2019-08-20 20:45:24 Flako Diane FLOW CYTOMETRY EVALUATION 2019-08-20 19:12:00 Sondra Hernandez Ra Religion FERRITIN LEVEL 2019-08-20 19:12:00 Sondra Hernandez Religion VITAMIN B12 LEVEL 2019-08-20 19:12:00 Sondra Hernandez Religion DIRECT MACHELLE' (DEO) 2019-08-20 19:12:00 Sondra Hernandez Religion HAPTOGLOBIN 2019-08-20 19:12:00 Sondra Hernandez on Religion LDH 2019-08-20 19:12:00 Sondra Hernandez on Religion TOTAL IRON BINDING CAPACITY 2019-08-20 19:12:00 Sondra Hernandez Religion XR CHEST 1 VW PORTABLE 2019-08-20 18:50:58 Flako Diane TTE COMPLETE, W CONTRAST, W DOPPLER ([id number]) 2019-08-20 18:35 :14 Flako Diane ECG 12-LEAD 2019-08-20 17:55:50 Flako Diane AMMONIA LEVEL 2019-08-20 17:50:00 Flako Diane CBC WITH PLATELET AND DIFFERENTIAL 2019-08-20 17:50:00 Ashwin Diane COMPREHENSIVE METABOLIC PANEL 2019-08-20 17:50:00 Tin Diane PROTHROMBIN TIME WITH INR 2019-08-20 17:50:00 Flako Diane PARTIAL THROMBOPLASTIN TIME (PTT) 2019-08-20 17:50:00 Dylan Diane ESTIMATED GFR 2019-08-20 17:50:00 Flako Diane IMMATURE PLATELET FRACTION 2019-08-20 17:50:00 Flako Diane MANUAL DIFFERENTIAL 2019-08-20 17:50:00 Flako Diane PREPARE RBC 2019-08-20 17:50:00 Sondra Hernandez Religion PREPARE PLATELET PHERESIS 2019-08-20 17:50:00 Sondra Hernandez Ra Plan of Care Planned Activity Planned Date Details Comments Source Future Scheduled Test 2020-01-29 00:00:00 INFLUENZA VACCINE (#1) [code = INFLUENZA VACCINE (#1)] [facility] Future Scheduled Test 2019-12-29 00:00:00 INFLUENZA VACCINE [code = INFLUENZA VACCINE] [facility] Future Scheduled Test 2009 00:00:00 BREAST CANCER SCRE ENING [code = BREAST CANCER SCREENING] [facility] Scheduled Test 2009 00:00:00 COLONOSCOPY SCREEN ING [code = COLONOSCOPY SCREENING] [facility] Scheduled Test 2009 00:00:00 SHINGLES VACCINES (#1) [code = SHINGLES VACCINES (#1)] [facility] Scheduled Test 2004-01-10 00:00:00 Lipid panel (proce dure) [code = 22805191] [facility] 1980-01-10 00:00:00 Screening for mario gnant neoplasm of cervix (procedure) [code = 571681185] [facility] Future Scheduled Test 1980-01-10 00:00:00 Screening for mario gnant neoplasm of cervix (procedure) [code = 558210895] [facility] Future Scheduled Test 1965 00:00:00 PNEUMOCOCCAL VACCI NE 0-64 YRS (1 of 3 - PCV13) [code = PNEUMOCOCCAL VACCINE 0-64 YRS (1 of 3 - PCV13)] [facility] Future Scheduled Test 1959 00:00:00 Screening for mario gnant neoplasm of breast (procedure) [code = 222361980] [facility] Future Scheduled Test 1959 00:00:00 Screening for mario gnant neoplasm of colon (procedure) [code = 974949330] [facility] Instructions Thrombocytopenia [facility] Encounters Start Date/Time End Date/Time Encounter Type Admission Type [facility] Care Department Encounter ID Source 2020-04-18 10:20:00 2020-04-18 11:08:00 Departed Emergency Room [facility] [id number] [facility] 2020-04-02 00:00:00 2020-04-02 00:00:00 Outpatient AYAD OLEA [facility] [id number] [facility] 2020-03-27 00:00:00 2020-03-27 00:00:00 Outpatient AYAD OLEA [facility] [id number] [facility] 2020-03-25 00:00:00 2020-03-25 00:00:00 Outpatient CARRUMNAING E [facility] [id number] [facility] 2020-03-18 00:00:00 2020-03-18 00:00:00 Outpatient CARRUMAYAD E [facility] [id number] [facility] 2020-03-18 00:00:00 2020-03-18 00:00:00 Outpatient CARRUMAYAD [facility] [id number] [facility] 2020-03-03 00:00:00 2020-03-03 00:00:00 Outpatient CARRUMAYAD E [facility] [id number] [facility] 2020-02-26 00:00:00 2020-02-26 00:00:00 Office Visit Status, Fax [facility] Encounter/[id number] [facility] 2020-02-26 00:00:00 2020-02-26 00:00:00 Office Visit Status, Fax [facility] Encounter/[id number] [facility] 2020-02-25 00:00:00 2020-02-25 00:00:00 Office Visit Erika Powell, Carina Alcala Adriana [facility] Encounter/[id number] [facility] 2020-02-22 00:00:00 2020-02-22 00:00:00 Outpatient CARRAYAD THOMAS E [facility] [id number] [facility] 2020-02-13 00:00:00 2020-02-13 00:00:00 Outpatient ESCUDIER, ANYI AN [facility] [id number] [facility] 2020-01-25 00:00:00 2020-01-25 00:00:00 Outpatient CARRUMAYAD E [facility] [id number] [facility] 2020-01-25 00:00:00 2020-01-25 00:00:00 Outpatient CARRUMNAING E [facility] [id number] [facility] 2020-01-21 00:00:00 2020-01-21 00:00:00 Office Visit Erika Powell, Wendi Gutierrez, Sandy Saini, Jaylene Valdivia [facility] Encounter/[id number] [facility] 2020-01-10 00:00:00 2020-01-10 00:00:00 Outpatient CARRAYAD THOMAS E [facility] [id number] [facility] 2020-01-07 00:00:00 2020-01-07 00:00:00 Outpatient CARRUMAYAD E [facility] [id number] [facility] 2020-01-03 00:00:00 2020-01-03 00:00:00 Outpatient CARRAYAD THOMAS E [facility] [id number] [facility] 2019-12-20 00:00:00 2019-12-20 00:00:00 Office Visit Erika Franklin [facility] Encounter/[id number] [facility] 2019-12-11 00:00:00 2019-12-11 00:00:00 Office Visit Status, Fax [facility] Encounter/[id number] [facility] 2019-12-11 00:00:00 2019-12-11 00:00:00 Office Visit Status, Fax [facility] Encounter/[id number] [facility] 2019-12-11 00:00:00 2019-12-11 00:00:00 Office Visit Status, Fax [facility] Encounter/[id number] [facility] 2019-12-04 00:00:00 2019-12-04 00:00:00 Office Visit Erika Powell, Wendi Worthington, Candace Alexis, Danii Castillo [facility] Encounter/[id number] [facility] 2019-12-04 00:00:00 2019-12-04 00:00:00 Office Visit Erika Franklin [facility] Encounter/[id number] [facility] 2019-11-29 00:00:00 2019-11-29 00:00:00 Office Visit Erika Franklin [facility] Encounter/[id number] [facility] 2019-11-27 00:00:00 2019-11-27 00:00:00 Office Visit Erika Franklin [facility] Encounter/[id number] [facility] 2019-11-23 00:00:00 2019-11-23 00:00:00 Office Visit Erika Franklin [facility] Encounter/[id number] [facility] 2019-11-22 00:00:00 2019-11-22 00:00:00 Office Visit Erika Franklin Ashwin [facility] Encounter/[id number] [facility] 2019-11-22 00:00:00 2019-11-22 00:00:00 Office Visit CarlaShara [facility] Encounter/[id number] [facility] 2019-09-19 00:00:00 2019-09-19 00:00:00 Office Visit Erika Franklin Ashwin [facility] Encounter/[id number] [facility] 2019-09-12 00:00:00 2019-09-12 00:00:00 Office Visit Erika Franklin [facility] Encounter/[id number] [facility] 2019-09-07 00:00:00 2019-09-07 00:00:00 Office Visit Status, Fax [facility] Encounter/[id number] [facility] 2019-09-07 00:00:00 2019-09-07 00:00:00 Office Visit Status, Fax [facility] Encounter/[id number] [facility] 2019-09-07 00:00:00 2019-09-07 00:00:00 Office Visit Status, Fax [facility] Encounter/[id number] [facility] 2019-09-07 00:00:00 2019-09-07 00:00:00 Office Visit Erika Powell Lisa Brown, Kiera Mariaca, Jennifer [facility] Encounter/[id number] [facility] 2019-09-07 00:00:00 2019-09-07 00:00:00 Office Visit Lili Franklinshari Christopher [facility] Encounter/[id number] [facility] 2019-09-06 00:00:00 2019-09-06 00:00:00 Office Visit Lili Franklinshari Christopher [facility] Encounter/[id number] [facility] 2019-09-06 00:00:00 2019-09-06 00:00:00 Office Visit Shara Perla Lynda C [facility] Encounter/[id number] [facility] 2019-09-06 00:00:00 2019-09-06 00:00:00 Office Visit Shara Aguirre [facility] Encounter/[id number] [facility] 2019-09-05 00:00:00 2019-09-05 00:00:00 Office Visit Lacie avilaErika [facility] Encounter/[id number] [facility] 2019-09-03 00:00:00 2019-09-03 00:00:00 Office Visit Lacie avila Erika Christopher [facility] Encounter/[id number] [facility] 2019-09-03 00:00:00 2019-09-03 00:00:00 Office Visit Erika Powell Lora Fly [facility] Encounter/[id number] [facility] 2019-09-03 00:00:00 2019-09-03 00:00:00 Office Visit Erika Powell Sara [facility] Encounter/[id number] [facility] 2019-09-03 00:00:00 2019-09-03 00:00:00 Office Visit R esponsible Provider, Not Yet Assigned [facility] Encounter/[id number] [facility] 2019-09-03 00:00:00 2019-09-03 00:00:00 Office Visit R esponsible Provider, Not Yet Assigned [facility] Encounter/[id number] [facility] 2019-09-03 00:00:00 2019-09-03 00:00:00 Office Visit Shara Perla, Alma Manning, Erika Andujar [facility] Encounter/[id number] L [facility] 2019-09-03 00:00:00 2019-09-03 00:00:00 Office Visit Erika Franklin [facility] Encounter/[id number] [facility] 2019-09-03 00:00:00 2019-09-03 00:00:00 Office Visit Status, Fax [facility] Encounter/[id number] [facility] 2019-09-03 00:00:00 2019-09-03 00:00:00 Office Visit Status, Fax [facility] Encounter/[id number] [facility] 2019-09-03 00:00:00 2019-09-03 00:00:00 Office Visit Status, Fax [facility] Encounter/[id number] [facility] 2019-09-03 00:00:00 2019-09-03 00:00:00 Office Visit Erika Powell Lora [facility] Encounter/[id number] [facility] 2019-08-29 00:00:00 2019-08-29 00:00:00 Office Visit Erika Franklin [facility] Encounter/[id number] [facility] 2019-08-29 00:00:00 2019-08-29 00:00:00 Office Visit Shara Perla Lesny Montgomery, Lynda C [facility] Encounter/[id number] [facility] 2019-08-29 00:00:00 2019-08-29 00:00:00 Office Visit Status, Fax [facility] Encounter/[id number] [facility] 2019-08-29 00:00:00 2019-08-29 00:00:00 Office Visit Status, Fax [facility] Encounter/[id number] [facility] 2019-08-29 00:00:00 2019-08-29 00:00:00 Office Visit Status, Fax [facility] Encounter/[id number] [facility] 2019-08-29 00:00:00 2019-08-29 00:00:00 Office Visit Erika Powell, Candace Gutierrez, Sandy Alexis, Alma Romero, César Smalls [id number] [facility]:00 2019-08-28 00:00:00 Office Visit Eufemia Linares al [facility] Encounter/[id number] [facility] 2019-08-28 00:00:00 2019-08-28 00:00:00 Office Visit Eufemia Linares al [facility] Encounter/[id number] [facility] 2019-08-27 00:00:00 2019-08-27 00:00:00 Office Visit Shara Aguirre [facility] Encounter/[id number] [facility] 2019-08-23 00:00:00 2019-08-23 00:00:00 Office Visit Kayleigh Abraham, Tierney Haro [facility] Encounter/[id number] [facility] 2019-08-22 00:00:00 2019-08-22 00:00:00 Office Visit Erika Franklin [facility] Encounter/[id number] [facility] 2019-08-22 00:00:00 2019-08-22 00:00:00 Office Visit Emery Green [facility] Encounter/[id number] [facility] 2019-08-20 00:00:00 2019-08-22 00:00:00 Inpatient OLEG PARDO [facility] [id number] Luis Enrique [facility] 2019-08-21 00:00:00 2019-08-21 00:00:00 Office Visit Erika Franklin [facility] Encounter/[id number] [facility] 2019-08-20 00:00:00 2019-08-20 00:00:00 Office Visit Erika Franklin [facility] Encounter/[id number] [facility] 2019-08-20 00:00:00 2019-08-20 00:00:00 Office Visit Erika Franklin [facility] Encounter/[id number] [facility] 2019-08-20 00:00:00 2019-08-20 00:00:00 Office Visit Erika Franklin [facility] Encounter/[id number] [facility] Results Test Description Test Time Test Comments Results Result Comments Source Prepare Leuko-Red & Irrad PLT 2020-04-18 16:43:00 Test Item Unit ABO (test code = 3850953) O Pos UNIT NUMBER (test code = 934-0) [id number] Status (test code = 6291756) ISSUED Blood Bank Product (test code = 2263) PLATELETS PRODUCT CODE (test code = 933-2) [id number] [facility] [id number] 16:18:00* Test Item Value Reference Range Interpretation Comments % Neutros (test code = 2816) 1 % % Lymphs (test code = 2817) 87 % % Monos (test code = 2818) 1 % % Atypical Lymphs (test code = 2829) 11 % 0-0 H # Neutros (test code = 2830) 0.00 K/ul 1.56-6.13 L # Lymphs (test code = 2831) 0.09 K/ul 1.18-3.74 L # Monos (test code = 2832) 0.00 K/uL 0.24-0.36 L # Atypical Lymphs (test code = 2858) 0.01 K/uL 0-0 H Total Counted (test code = 1351) 100 WBC Morphology (test code = 487) Normal Platelet Morphology (test code = 486) Normal Anisocytosis (test code = 961) 1+ few Macrocytes (test code = 964) 1+ few Tear Drop Cells (test code = 481) 1+ few Platelet Conc (test code = 3438) Decreased KO (test code = KO) Compotype Operator ID - [id number] Lab Interpretation (test code = 55124-7) Abnormal [facility](CELLAVISION MANUAL DIFF)2020-04-18 16:18:00* Test Item Value Reference Range Interpretation Comments NEUTROPHILS - REL (CELLAVISION)(BEAKER) (test code = 2816) 1 % LYMPHOCYTES - REL (CELLAVISION)(BEAKER) (test code = 2817) 87 % MONOCYTES - REL (CELLAVISION)(BEAKER) (test code = 2818) 1 % ATYPICAL LYMPHOCYTES - REL (CELLAVISION)(BEAKER) (test code = 2829) 11 % 0-0 H NEUTROPHILS - ABS (CELLAVISION)(BEAKER) (test code = 2830) 0.00 K/ul 1.56-6.13 L LYMPHOCYTES - ABS (CELLAVISION)(BEAKER) (test code = 2831) 0.09 K/ul 1.18-3.74 L MONOCYTES - ABS (CELLAVISION)(BEAKER) (test code = 2832) 0.00 K/uL 0.24-0.36 L ATYPICAL LYMPHOCYTES - ABS (CELLAVISION)(BEAKER) (test code = 2858) 0.01 K/uL 0.00-0.00 H TOTAL COUNTED (BEAKER) (test code = 1351) 100 WBC MORPHOLOGY (BEAKER) (test code = 487) Normal PLT MORPHOLOGY (BEAKER) (test code = 486) Normal ANISOCYTOSIS (BEAKER) (test code = 961) 1+ few MACROCYTES (BEAKER) (test code = 964) 1+ few TEAR DROP CELLS (BEAKER) (test code = 481) 1+ few PLATELET CONCENTRATION (CELLAVISION)(BEAKER) (test code = 3438) Dec reased Compotype Operator ID - [id number] and screen, automated ([facility] and [facility] only)2020-04-18 15:41:00* Test Item Value Reference Range Interpretation Comments ABO/RH AUTOMATED (BEAKER) (test code = 2260) O POSITIVE Ab Scrn (test code = 890-4) NEGATIVE [facility] [id number] 15:23:00* Test Item Value Reference Range Interpretation Comments Sodium (test code = 2951-2) 139 meq/L 136-145 Potassium (test code = 2823-3) 3.8 meq/L 3.5-5.1 Chloride (test code = 2075-0) 106 meq/L 98-107 CO2 (test code = 2028-9) 24 meq/L 22-29 BUN (test code = 3094-0) 23 mg/dL 7-21 H Creatinine (test code = 2160-0) 0.74 mg/dL 0.57-1.25 Glucose (test code = 2345-7) 106 mg/dL 70-105 H Calcium (test code = 95181-6) 9.2 mg/dL 8.4-10.2 EGFR (test code = 09358-0) 80 mL/min/1.73 sq m ESTIMATED GFR IS NOT ACCURATE CREATININE CLEARANCE IN PREDICTING GLOMERULAR FILTRATION RATE. ESTIMATED GFR IS NOT APPLICABLE FOR DIALYSIS PATIENTS. KO (test code = KO) Compotype Operator ID - [id number] Lab Interpretation (test code = 86460-9) [facility] [id number] 15:23:00* Test Item Value Reference Range Interpretation Comments SODIUM (BEAKER) (test code = 381) 139 meq/L 136-145 POTASSIUM (BEAKER) (test code = 379) 3.8 meq/L 3.5-5.1 CHLORIDE (BEAKER) (test code = 382) 106 meq/L 98-107 CO2 (BEAKER) (test code = 355) 24 meq/L 22-29 BLOOD UREA NITROGEN (BEAKER) (test code = 354) 23 mg/dL 7-21 H CREATININE (BEAKER) (test code = 358) 0.74 mg/dL 0.57-1.25 GLUCOSE RANDOM (BEAKER) (test code = 652) 106 mg/dL 70-105 H CALCIUM (BEAKER) (test code = 697) 9.2 mg/dL 8.4-10.2 EGFR (BEAKER) (test code = 1092) 80 mL/min/1.73 sq m ESTIMATED GFR IS NOT ACCURATE CREATININE CLEARANCE IN PREDICTING GLOMERULAR FILTRATION RATE. ESTIMATED GFR IS NOT APPLICABLE FOR DIALYSIS PATIENTS. Compotype Operator ID - ADMINPT/[id number] 15:19:00* Test Item Value Reference Range Interpretation Comments Protime (test code = 5902-2) 12.9 11.9- 14.2 seconds INR (test code = 6301-6) 1.00 <=5.90 PTT (test code = 71548-3) 28.0 22.5- 36.0 seconds KO (test code = KO) Effective 10/25/2018: PT Refe rence Range ChangeNew: 11.9- 14.2 Previous: 11.7-14.7 RECOMMENDED COUMADIN/WARFARIN INR THERAPY RANGESSTANDARD DOSE: 2.0-3.0 Includes: PROPHYLAXIS for venous thrombosis, sys temic embolization; TREATMENT for venous thrombosis and/or pulmonary embolus.HIGH RISK: Target INR is 2.5-3.5 for patients wiht mechanical heart valves. Lab Interpretation (test code = 44044-4) Normal [id number] 15:19:00* Test Item Value Reference Range Interpretation Comments PROTIME (BEAKER) (test code = 759) 12.9 seconds 11.9-14.2 INR (BEAKER) (test code = 370) 1.00 <=5.90 PARTIAL THROMBOPLASTIN TIME (BEAKER) (test code = 760) 28.0 seconds 22.5-36.0 Effective 10/25/2018: PT Reference Range ChangeNew: 11.9-14.2 Previous: 11.7-14. 7RECOMMENDED COUMADIN/WARFARIN INR THERAPY RANGESSTANDARD DOSE: 2.0-3.0 Include s: PROPHYLAXIS for venous thrombosis, systemic embolization; TREATMENT for venou s thrombosis and/or pulmonary embolus.HIGH RISK: Target INR is 2.5-3.5 for patie nts wiht mechanical heart valves.CBC with platelet count + automated diff 2020-04-18 15:14:00* Test Item Value Reference Range Interpretation Comments WBC (test code = 6690-2) 0.1 3.5- 10.5 K/L LL RBC (test code = 789-8) 2.63 3.93- 5.22 M/L L MCHC (test code = 786-4) 32.7 32.2- 35.5 GM/DL L Hematocrit (test code = 4544-3) 27.2 % 34.1-44.9 L MCV (test code = 787-2) 103.4 fL 79.4-94.8 H MCH (test code = 785-6) 33.8 pg 25.6-32.2 H RDW (test code = 788-0) 15.5 % 11.7-14.4 H Platelets (test code = 777-3) 2 150- 450 K/CU MM LL MPV (test code = 21606-1) Un able to report due to abnormal Platelet population distribution. nRBC (test code = 413) 0 0- 0 /100 WBC Lab Interpretation (test code = 57674-3) [facility]normal [facility] & AUTO [id number] 15:14:00* Test Item Value Reference Range Interpretation Comments WHITE BLOOD CELL COUNT (BEAKER) (test code = 775) 0.1 K/ L 3.5- 10.5 LL RED BLOOD CELL COUNT (BEAKER) (test code = 761) 2.63 M/ L 3.93-5 .22 L HEMOGLOBIN (BEAKER) (test code = 410) 8.9 GM/DL 11.2-15.7 L HEMATOCRIT (BEAKER) (test code = 411) 27.2 % 34.1-44.9 L MEAN CORPUSCULAR VOLUME (BEAKER) (test code = 753) 103.4 fL 79. 4-94.8 H MEAN CORPUSCULAR HEMOGLOBIN (BEAKER) (test code = 751) 33.8 pg 25.6-32.2 H MEAN CORPUSCULAR HEMOGLOBIN CONC (BEAKER) (test code = 752) 32.7 GM/DL 32.2-35.5 RED CELL DISTRIBUTION WIDTH (BEAKER) (test code = 412) 15.5 % 11.7-14.4 H PLATELET COUNT (BEAKER) (test code = 756) 2 K/CU MM 150-450 LL MEAN PLATELET VOLUME (BEAKER) (test code = 754) Unable to report due to abnormal Platelet population distribution. NUCLEATED RED BLOOD CELLS (BEAKER) (test code = 413) 0 /100 WBC 0 -0 CBC W/PLT COUNT & AUTO [id number] 07:09:00* Test Item Value Reference Range Interpretation Comments WHITE BLOOD CELL COUNT (BEAKER) (test code = 775) 3.0 K/ L 3.5- 10.5 L RED BLOOD CELL COUNT (BEAKER) (test code = 761) 2.95 M/ L 3.93-5 .22 L HEMOGLOBIN (BEAKER) (test code = 410) 10.0 GM/DL 11.2-15.7 L HEMATOCRIT (BEAKER) (test code = 411) 30.7 % 34.1-44.9 L MEAN CORPUSCULAR VOLUME (BEAKER) (test code = 753) 104.1 fL 79. 4-94.8 H MEAN CORPUSCULAR HEMOGLOBIN (BEAKER) (test code = 751) 33.9 pg 25.6-32.2 H MEAN CORPUSCULAR HEMOGLOBIN CONC (BEAKER) (test code = 752) 32.6 GM/DL 32.2-35.5 RED CELL DISTRIBUTION WIDTH (BEAKER) (test code = 412) 15.9 % 11.7-14.4 H PLATELET COUNT (BEAKER) (test code = 756) 61 K/CU MM 150-450 L MEAN PLATELET VOLUME (BEAKER) (test code = 754) 11.6 fL 9.4-12 .3 NUCLEATED RED BLOOD CELLS (BEAKER) (test code = 413) 0 /100 WBC 0 -0 NEUTROPHILS RELATIVE PERCENT (BEAKER) (test code = 429) 96 % LYMPHOCYTES RELATIVE PERCENT (BEAKER) (test code = 430) 3 % MONOCYTES RELATIVE PERCENT (BEAKER) (test code = 431) 0 % EOSINOPHILS RELATIVE PERCENT (BEAKER) (test code = 432) 0 % BASOPHILS RELATIVE PERCENT (BEAKER) (test code = 437) 0 % NEUTROPHILS ABSOLUTE COUNT (BEAKER) (test code = 670) 2.88 K/ L 1.56-6.13 LYMPHOCYTES ABSOLUTE COUNT (BEAKER) (test code = 414) 0.09 K/ L 1.18-3.74 L MONOCYTES ABSOLUTE COUNT (BEAKER) (test code = 415) 0.01 K/ L 0. 24-0.36 L EOSINOPHILS ABSOLUTE COUNT (BEAKER) (test code = 416) 0.00 K/ L 0.04-0.36 L BASOPHILS ABSOLUTE COUNT (BEAKER) (test code = 417) 0.00 K/ L 0. 01-0.08 L IMMATURE GRANULOCYTES-RELATIVE PERCENT (BEAKER) (test code = 2801) 1 % 0-1 Comprehensive metabolic [id number] 06:20:00* Test Item Value Reference Range Interpretation Comments Protein, Total (test code = 2885-2) 6.1 6.0- 8.3 gm/dL Albumin (test code = 36324-5) 3.9 g/dL 3.5-5 Alkaline Phosphatase (test code = 6768-6) 79 U/L 40-150 Total Bilirubin (test code = 1975-2) 0.8 mg/dL 0.2-1.2 Sodium (test code = 2951-2) 139 meq/L 136-145 Potassium (test code = 2823-3) 4.1 meq/L 3.5-5.1 Chloride (test code = 5-0) 106 meq/L 98-107 CO2 (test code = 8-9) 26 meq/L 22-29 BUN (test code = 3094-0) 17 mg/dL 7-21 Creatinine (test code = 2160-0) 0.58 mg/dL 0.57-1.25 Glucose (test code = 2345-7) 106 mg/dL 70-105 H Calcium (test code = 49721-3) 9.3 mg/dL 8.4-10.2 AST (test code = 1920-8) 29 U/L 5-34 ALT (test code = 1742-6) 30 U/L 6-55 EGFR (test code = 04802-8) 106 mL/min/1.73 sq m ESTIMATED GFR IS NOT ACCURATE CREATININE CLEARANCE IN PREDICTING GLOMERULAR FILTRATION RATE. ESTIMATED GFR IS NOT APPLICABLE FOR DIALYSIS PATIENTS. KO (test code = KO) Compotype Operator ID - [id number] Lab Interpretation (test code = 96727-0) [facility] [id number] 06:20:00* Test Item Value Reference Range Interpretation Comments TOTAL PROTEIN (BEAKER) (test code = 770) 6.1 gm/dL 6.0-8.3 ALBUMIN (BEAKER) (test code = 1145) 3.9 g/dL 3.5-5.0 ALKALINE PHOSPHATASE (BEAKER) (test code = 346) 79 U/L 40-150 BILIRUBIN TOTAL (BEAKER) (test code = 377) 0.8 mg/dL 0.2-1.2 SODIUM (BEAKER) (test code = 381) 139 meq/L 136-145 POTASSIUM (BEAKER) (test code = 379) 4.1 meq/L 3.5-5.1 CHLORIDE (BEAKER) (test code = 382) 106 meq/L 98-107 CO2 (BEAKER) (test code = 355) 26 meq/L 22-29 BLOOD UREA NITROGEN (BEAKER) (test code = 354) 17 mg/dL 7-21 CREATININE (BEAKER) (test code = 358) 0.58 mg/dL 0.57-1.25 GLUCOSE RANDOM (BEAKER) (test code = 652) 106 mg/dL 70-105 H CALCIUM (BEAKER) (test code = 697) 9.3 mg/dL 8.4-10.2 AST (SGOT) (BEAKER) (test code = 353) 29 U/L 5-34 ALT (SGPT) (BEAKER) (test code = 347) 30 U/L 6-55 EGFR (BEAKER) (test code = 1092) 106 mL/min/1.73 sq m ESTIMATED GFR IS NOT ACCURATE CREATININE CLEARANCE IN PREDICTING GLOMERULAR FILTRATION RATE. ESTIMATED GFR IS NOT APPLICABLE FOR DIALYSIS PATIENTS. Compotype Operator ID - EDASICOMPREHENSIVE METABOLIC [id number] 05:29:00* Test Item Value Reference Range Interpretation Comments TOTAL PROTEIN (BEAKER) (test code = 770) 5.7 gm/dL 6.0-8.3 L ALBUMIN (BEAKER) (test code = 1145) 3.7 g/dL 3.5-5.0 ALKALINE PHOSPHATASE (BEAKER) (test code = 346) 76 U/L 40-150 BILIRUBIN TOTAL (BEAKER) (test code = 377) 0.9 mg/dL 0.2-1.2 SODIUM (BEAKER) (test code = 381) 140 meq/L 136-145 POTASSIUM (BEAKER) (test code = 379) 4.1 meq/L 3.5-5.1 CHLORIDE (BEAKER) (test code = 382) 108 meq/L 98-107 H CO2 (BEAKER) (test code = 355) 24 meq/L 22-29 BLOOD UREA NITROGEN (BEAKER) (test code = 354) 18 mg/dL 7-21 CREATININE (BEAKER) (test code = 358) 0.61 mg/dL 0.57-1.25 GLUCOSE RANDOM (BEAKER) (test code = 652) 83 mg/dL 70-105 CALCIUM (BEAKER) (test code = 697) 8.9 mg/dL 8.4-10.2 AST (SGOT) (BEAKER) (test code = 353) 29 U/L 5-34 ALT (SGPT) (BEAKER) (test code = 347) 25 U/L 6-55 EGFR (BEAKER) (test code = 1092) 100 mL/min/1.73 sq m ESTIMATED GFR IS NOT ACCURATE CREATININE CLEARANCE IN PREDICTING GLOMERULAR FILTRATION RATE. ESTIMATED GFR IS NOT APPLICABLE FOR DIALYSIS PATIENTS. Compotype Operator ID - ADMINCBC W/PLT COUNT & AUTO [id number] 05:08:00* Test Item Value Reference Range Interpretation Comments WHITE BLOOD CELL COUNT (BEAKER) (test code = 775) 3.6 K/ L 3.5- 10.5 RED BLOOD CELL COUNT (BEAKER) (test code = 761) 2.77 M/ L 3.93-5 .22 L HEMOGLOBIN (BEAKER) (test code = 410) 9.4 GM/DL 11.2-15.7 L HEMATOCRIT (BEAKER) (test code = 411) 29.1 % 34.1-44.9 L MEAN CORPUSCULAR VOLUME (BEAKER) (test code = 753) 105.1 fL 79. 4-94.8 H MEAN CORPUSCULAR HEMOGLOBIN (BEAKER) (test code = 751) 33.9 pg 25.6-32.2 H MEAN CORPUSCULAR HEMOGLOBIN CONC (BEAKER) (test code = 752) 32.3 GM/DL 32.2-35.5 RED CELL DISTRIBUTION WIDTH (BEAKER) (test code = 412) 16.9 % 11.7-14.4 H PLATELET COUNT (BEAKER) (test code = 756) 63 K/CU MM 150-450 L MEAN PLATELET VOLUME (BEAKER) (test code = 754) 9.9 fL 9.4-12 .3 NUCLEATED RED BLOOD CELLS (BEAKER) (test code = 413) 0 /100 WBC 0 -0 NEUTROPHILS RELATIVE PERCENT (BEAKER) (test code = 429) 92 % LYMPHOCYTES RELATIVE PERCENT (BEAKER) (test code = 430) 5 % MONOCYTES RELATIVE PERCENT (BEAKER) (test code = 431) 1 % EOSINOPHILS RELATIVE PERCENT (BEAKER) (test code = 432) 1 % BASOPHILS RELATIVE PERCENT (BEAKER) (test code = 437) 0 % NEUTROPHILS ABSOLUTE COUNT (BEAKER) (test code = 670) 3.29 K/ L 1.56-6.13 LYMPHOCYTES ABSOLUTE COUNT (BEAKER) (test code = 414) 0.19 K/ L 1.18-3.74 L MONOCYTES ABSOLUTE COUNT (BEAKER) (test code = 415) 0.03 K/ L 0. 24-0.36 L EOSINOPHILS ABSOLUTE COUNT (BEAKER) (test code = 416) 0.05 K/ L 0.04-0.36 BASOPHILS ABSOLUTE COUNT (BEAKER) (test code = 417) 0.00 K/ L 0. 01-0.08 L IMMATURE GRANULOCYTES-RELATIVE PERCENT (BEAKER) (test code = 2801) 1 % 0-1 SARS-CoV2/RT-PCR (Asymptomatic ONLY)2020-04-11 20:47:00* Test Item Value Reference Range Interpretation Comments SARS-COV2/RT-PCR (test code = 59590-4) Negative N ot Detected, Negative, See external report for linked test SARS-COV-2 PERFORMING LAB (test code = 30936-5) [facility] (test code = KO) Negative result for this juliette t determines that SARS-CoV-2 RNA was not present in the specimen above the Limit of Detection (LOD). However, Negative results do not preclude SARS-CoV-2 infection and should not be used as the sole basis for treatment or patient management decisions. Negative results must be combined with clinical observations, patient history, and epidemiological information. A false negative result may occur if a specimen is improperly collected, transported or handled. A false negative result should be considered if patient's recent exposures or clinical presentation indicate that COVID-19 (SARS-CoV-2) is likely and diagnostic tests for other causes of illness are negative. Re-testing should be considered in cases of suspected false negatives. The limit of detection for this assay is 800 copies/mL. This SARS CoV-2 test is a real-time RT-PCR test intended for the qualitative detection of nucleic acid from SARS-CoV-2 in a nasopharyngeal swab specimen collected from individuals suspected of COVID-19 by their healthcare provider. This test has not been Food and Drug Administration (FDA) cleared or approved. This is a modified version of an approved Emergency Use Authorization (EUA) and is in the process of review by the FDA. Once authorized by the FDA, the issued EUA will be effective until the declaration that circumstances exist justifying the authorization of the emergency use of in vitro diagnostic tests for detection and/or diagnosis of COVID-19 is terminated under Section 564(b)(2) of the Act or the EUA is revoked under Section 564(g) of the Act. Fact Sheet for Healthcare Providers:https://www.[employer]/sites/default/files/product/documents/Fact_Shee w_ZD_Weehslkcq_Awvr_XZQF-AwL-4.pdf Fact Sheet for Healthcare Patients:https://www.[employer]/sites/default/files/pro duct/documents/Soza_Dfpkb_Eakkfxum_Kygd_WBUS-BnR-4.pdf Performing Laboratory:[facility]OV2/RT-PCR ([facility])2020-04-11 20:47:00* Test Item Value Reference Range Interpretation Comments SARS-COV2/RT-PCR (test code = 2484323) Negative N ot Detected, Negative, See external report for linked test SARS-COV-2 PERFORMING LAB (test code = 4844250) [facility] Negative result for this test determines that SARS-CoV-2 RNA was not present in the specimen above the Limit of Detection (LOD). However, Negative results do n ot preclude SARS-CoV-2 infection and should not be used as the sole basis for tr eatment or patient management decisions. Negative results must be combined with clinical observations, patient history, and epidemiological information. A false negative result may occur if a specimen is improperly collected, transported or handled. A false negative result should be considered if patient's recent expo sures or clinical presentation indicate that COVID-19 (SARS-CoV-2) is likely and diagnostic tests for other causes of illness are negative. Re-testing should be considered in cases of suspected false negatives.The limit of detection for this assay is 800 copies/mL.This SARS CoV-2 test is a real-time RT-PCR test intended for the qualitative detection of nucleic acid from SARS-CoV-2 in a nasopharyn geal swab specimen collected from individuals suspected of COVID-19 by their [facility] provider.This test has not been Food and Drug Administration (FDA) clear ed or approved. This is a modified version of an approved Emergency Use Authori zation (EUA) and is in the process of review by the FDA. Once authorized by [facility] FDA, the issued EUA will be effective until the declaration that circumstances exist justifying the authorization of the emergency use of in vitro diagnostic tests for detection and/or diagnosis of COVID-19 is terminated under Section 564 (b)(2) of the Act or the EUA is revoked under Section 564(g) of the Act.Fact She et for Healthcare Providers:https://www.[employer]/sites/default/files/product/d ocuments/Ztpq_Ydvoh_PZ_Wvtjubzgj_Dgpw_YRNF-ObC-5.pdfFact Sheet for Healthcare Pa martíns:https://www.[employer]/sites/default/files/product/documents/Fact_Sheet_P dvhxeie_Jufv_RXXD-VoD-3.pdfPerforming Laboratory:[facility] r6[facility] [address].[place], [place] [address]Ixpjsxbtcjehb referral [id number] 14:57:10* Test Item Value Reference Range Interpretation Comments [facility] test name (test code = 2566) [facility] test result (test code = 1730) see note CHROMOSOME/FISH ANALYSIS ONCOLOGYChromosome AnalysisIndication: AMLSample Type: BONE MARROW METHOD OF ANALYSIS: GTG-BandingRESULTS:55058,XX[20]INTERPRETATION :Normal female chormosome analysis with no clonal abnormalities observed. FISH ONCOLOGY ANALYSISMethod of Analysis: FISHFISH Nuclei examined: 1000Results:NORMAL:8 Centromere (D8Z2x2) - Gain of chromosome 8 NOT detectedt(8;21)(q22;q22) (MCEX0D2/RUNX1) - Translocation NOT prfeovyg27t67 (KMT2A) - Rearrangement NOT detectedt(15;17)(q24;q21) (PML/JANET) - Translocation NOT detectedinv(16)(p13.1q22) or t(16;16) (CBFB) - Rearrangement NOT detectedINTERPRETATION :Normal FISH analysis for the above loci.Fluorescence in situ hybridization (FISH) studies were performed on this specimen using a panel of DNA probes as listed above designed to detect abnormalities frequently observed in acute myeloid leukemia (AML). At least two hundred nuclei were analyzed for each probe, and all probe sets scored within their normal ranges. Therefore, these results are interpreted as normal.It should be noted that approximately 2-5% of APL patients are estimated to have a cryptic insertion of JANET into PML which could be missed by the dual color, dual fusion probe set. If there is a strong clinical impression of APL, PCR analysis would be warranted.ISCN: nuc natasha(D8Z2,ICWP0U8,KMT2A,PML,CBFB,JANET,RUNX1)x2[200]Test performed by:[facility] [address] [place] [address].[place], [place] [address] [place] [address] MethodistCOMPREHENSIVE METABOLIC [id number] 09:23:00* Test Item Value Reference Range Interpretation Comments TOTAL PROTEIN (BEAKER) (test code = 770) 5.7 gm/dL 6.0-8.3 L ALBUMIN (BEAKER) (test code = 1145) 3.6 g/dL 3.5-5.0 ALKALINE PHOSPHATASE (BEAKER) (test code = 346) 73 U/L 40-150 BILIRUBIN TOTAL (BEAKER) (test code = 377) 0.5 mg/dL 0.2-1.2 SODIUM (BEAKER) (test code = 381) 141 meq/L 136-145 POTASSIUM (BEAKER) (test code = 379) 3.9 meq/L 3.5-5.1 CHLORIDE (BEAKER) (test code = 382) 109 meq/L 98-107 H CO2 (BEAKER) (test code = 355) 23 meq/L 22-29 BLOOD UREA NITROGEN (BEAKER) (test code = 354) 16 mg/dL 7-21 CREATININE (BEAKER) (test code = 358) 0.60 mg/dL 0.57-1.25 GLUCOSE RANDOM (BEAKER) (test code = 652) 111 mg/dL 70-105 H CALCIUM (BEAKER) (test code = 697) 8.5 mg/dL 8.4-10.2 AST (SGOT) (BEAKER) (test code = 353) 24 U/L 5-34 ALT (SGPT) (BEAKER) (test code = 347) 22 U/L 6-55 EGFR (BEAKER) (test code = 1092) 102 mL/min/1.73 sq m ESTIMATED GFR IS NOT ACCURATE CREATININE CLEARANCE IN PREDICTING GLOMERULAR FILTRATION RATE. ESTIMATED GFR IS NOT APPLICABLE FOR DIALYSIS PATIENTS. Compotype Operator ID - IVANA CCBC W/PLT COUNT & AUTO [id number] 05:46:00* Test Item Value Reference Range Interpretation Comments WHITE BLOOD CELL COUNT (BEAKER) (test code = 775) 4.5 K/ L 3.5- 10.5 RED BLOOD CELL COUNT (BEAKER) (test code = 761) 2.85 M/ L 3.93-5 .22 L HEMOGLOBIN (BEAKER) (test code = 410) 9.7 GM/DL 11.2-15.7 L HEMATOCRIT (BEAKER) (test code = 411) 30.3 % 34.1-44.9 L MEAN CORPUSCULAR VOLUME (BEAKER) (test code = 753) 106.3 fL 79. 4-94.8 H MEAN CORPUSCULAR HEMOGLOBIN (BEAKER) (test code = 751) 34.0 pg 25.6-32.2 H MEAN CORPUSCULAR HEMOGLOBIN CONC (BEAKER) (test code = 752) 32.0 GM/DL 32.2-35.5 L RED CELL DISTRIBUTION WIDTH (BEAKER) (test code = 412) 16.8 % 11.7-14.4 H PLATELET COUNT (BEAKER) (test code = 756) 69 K/CU MM 150-450 L MEAN PLATELET VOLUME (BEAKER) (test code = 754) 10.4 fL 9.4-12 .3 NUCLEATED RED BLOOD CELLS (BEAKER) (test code = 413) 0 /100 WBC 0 -0 NEUTROPHILS RELATIVE PERCENT (BEAKER) (test code = 429) 94 % LYMPHOCYTES RELATIVE PERCENT (BEAKER) (test code = 430) 2 % MONOCYTES RELATIVE PERCENT (BEAKER) (test code = 431) 2 % EOSINOPHILS RELATIVE PERCENT (BEAKER) (test code = 432) 0 % BASOPHILS RELATIVE PERCENT (BEAKER) (test code = 437) 0 % NEUTROPHILS ABSOLUTE COUNT (BEAKER) (test code = 670) 4.24 K/ L 1.56-6.13 LYMPHOCYTES ABSOLUTE COUNT (BEAKER) (test code = 414) 0.11 K/ L 1.18-3.74 L MONOCYTES ABSOLUTE COUNT (BEAKER) (test code = 415) 0.07 K/ L 0. 24-0.36 L EOSINOPHILS ABSOLUTE COUNT (BEAKER) (test code = 416) 0.00 K/ L 0.04-0.36 L BASOPHILS ABSOLUTE COUNT (BEAKER) (test code = 417) 0.00 K/ L 0. 01-0.08 L IMMATURE GRANULOCYTES-RELATIVE PERCENT (BEAKER) (test code = 2801) 2 % 0-1 H Blood Culture - Routine (Left Venipuncture)2020-04-11 01:00:00* Test Item Value Reference Range Interpretation Comments Result (test code = 6463-4) No growth in 5 days [facility] [id number]:00* Test Item Value Reference Range Interpretation Comments CULTURE (BEAKER) (test code = 1095) No growth in 5 days BLOOD [id number] 01:00:00* Test Item Value Reference Range Interpretation Comments CULTURE (BEAKER) (test code = 1095) No growth in 5 days CMV PCR, [id number] 12:46:00* Test Item Value Reference Range Interpretation Comments CMV VIRAL LOAD - POSITIVE (BEAKER) (test code = 1557) See scanned report. CMV VIRAL LOAD - NEGATIVE (BEAKER) (test code = 2558) See scanned report. CMV PCR, [id number] 12:46:00CMV DNA Viral LoadComment: See scanned report.[facility]ENTERCMV DNA Viral LoadComment: See scanned report.[facility] CenterCatheter Tip [id number] 08:31:00* Test Item Value Reference Range Interpretation Comments Result (test code = 6463-4) No growth [facility] T[facility] [id number] 08:31:00* Test Item Value Reference Range Interpretation Comments CULTURE (BEAKER) (test code = 1095) No growth COMPREHENSIVE METABOLIC [id number] 05:34:00* Test Item Value Reference Range Interpretation Comments TOTAL PROTEIN (BEAKER) (test code = 770) 6.0 gm/dL 6.0-8.3 ALBUMIN (BEAKER) (test code = 1145) 3.8 g/dL 3.5-5.0 ALKALINE PHOSPHATASE (BEAKER) (test code = 346) 78 U/L 40-150 BILIRUBIN TOTAL (BEAKER) (test code = 377) 0.9 mg/dL 0.2-1.2 SODIUM (BEAKER) (test code = 381) 142 meq/L 136-145 POTASSIUM (BEAKER) (test code = 379) 4.3 meq/L 3.5-5.1 CHLORIDE (BEAKER) (test code = 382) 109 meq/L 98-107 H CO2 (BEAKER) (test code = 355) 27 meq/L 22-29 BLOOD UREA NITROGEN (BEAKER) (test code = 354) 16 mg/dL 7-21 CREATININE (BEAKER) (test code = 358) 0.66 mg/dL 0.57-1.25 GLUCOSE RANDOM (BEAKER) (test code = 652) 94 mg/dL 70-105 CALCIUM (BEAKER) (test code = 697) 9.3 mg/dL 8.4-10.2 AST (SGOT) (BEAKER) (test code = 353) 24 U/L 5-34 ALT (SGPT) (BEAKER) (test code = 347) 22 U/L 6-55 EGFR (BEAKER) (test code = 1092) 91 mL/min/1.73 sq m ESTIMATED GFR IS NOT ACCURATE CREATININE CLEARANCE IN PREDICTING GLOMERULAR FILTRATION RATE. ESTIMATED GFR IS NOT APPLICABLE FOR DIALYSIS PATIENTS. Compotype Operator ID - CONSUELO MCBC W/PLT COUNT & AUTO [id number] 04:51:00* Test Item Value Reference Range Interpretation Comments WHITE BLOOD CELL COUNT (BEAKER) (test code = 775) 8.8 K/ L 3.5- 10.5 RED BLOOD CELL COUNT (BEAKER) (test code = 761) 2.78 M/ L 3.93-5 .22 L HEMOGLOBIN (BEAKER) (test code = 410) 9.5 GM/DL 11.2-15.7 L HEMATOCRIT (BEAKER) (test code = 411) 29.7 % 34.1-44.9 L MEAN CORPUSCULAR VOLUME (BEAKER) (test code = 753) 106.8 fL 79. 4-94.8 H MEAN CORPUSCULAR HEMOGLOBIN (BEAKER) (test code = 751) 34.2 pg 25.6-32.2 H MEAN CORPUSCULAR HEMOGLOBIN CONC (BEAKER) (test code = 752) 32.0 GM/DL 32.2-35.5 L RED CELL DISTRIBUTION WIDTH (BEAKER) (test code = 412) 17.6 % 11.7-14.4 H PLATELET COUNT (BEAKER) (test code = 756) 86 K/CU MM 150-450 L MEAN PLATELET VOLUME (BEAKER) (test code = 754) 11.2 fL 9.4-12 .3 NUCLEATED RED BLOOD CELLS (BEAKER) (test code = 413) 0 /100 WBC 0 -0 NEUTROPHILS RELATIVE PERCENT (BEAKER) (test code = 429) 92 % LYMPHOCYTES RELATIVE PERCENT (BEAKER) (test code = 430) 4 % MONOCYTES RELATIVE PERCENT (BEAKER) (test code = 431) 4 % EOSINOPHILS RELATIVE PERCENT (BEAKER) (test code = 432) 0 % BASOPHILS RELATIVE PERCENT (BEAKER) (test code = 437) 0 % NEUTROPHILS ABSOLUTE COUNT (BEAKER) (test code = 670) 8.09 K/ L 1.56-6.13 H LYMPHOCYTES ABSOLUTE COUNT (BEAKER) (test code = 414) 0.32 K/ L 1.18-3.74 L MONOCYTES ABSOLUTE COUNT (BEAKER) (test code = 415) 0.31 K/ L 0. 24-0.36 EOSINOPHILS ABSOLUTE COUNT (BEAKER) (test code = 416) 0.01 K/ L 0.04-0.36 L BASOPHILS ABSOLUTE COUNT (BEAKER) (test code = 417) 0.00 K/ L 0. 01-0.08 L IMMATURE GRANULOCYTES-RELATIVE PERCENT (BEAKER) (test code = 2801) 1 % 0-1 BLOOD [id number] 23:00:00* Test Item Value Reference Range Interpretation Comments CULTURE (BEAKER) (test code = 1095) No growth in 5 days CBC W/PLT COUNT & AUTO [id number] 07:12:00* Test Item Value Reference Range Interpretation Comments WHITE BLOOD CELL COUNT (BEAKER) (test code = 775) 14.7 K/ L 3.5- 10.5 H RED BLOOD CELL COUNT (BEAKER) (test code = 761) 3.18 M/ L 3.93-5 .22 L HEMOGLOBIN (BEAKER) (test code = 410) 10.9 GM/DL 11.2-15.7 L HEMATOCRIT (BEAKER) (test code = 411) 34.1 % 34.1-44.9 MEAN CORPUSCULAR VOLUME (BEAKER) (test code = 753) 107.2 fL 79. 4-94.8 H MEAN CORPUSCULAR HEMOGLOBIN (BEAKER) (test code = 751) 34.3 pg 25.6-32.2 H MEAN CORPUSCULAR HEMOGLOBIN CONC (BEAKER) (test code = 752) 32.0 GM/DL 32.2-35.5 L RED CELL DISTRIBUTION WIDTH (BEAKER) (test code = 412) 17.1 % 11.7-14.4 H PLATELET COUNT (BEAKER) (test code = 756) 90 K/CU MM 150-450 L MEAN PLATELET VOLUME (BEAKER) (test code = 754) 10.7 fL 9.4-12 .3 NUCLEATED RED BLOOD CELLS (BEAKER) (test code = 413) 0 /100 WBC 0 -0 NEUTROPHILS RELATIVE PERCENT (BEAKER) (test code = 429) 91 % LYMPHOCYTES RELATIVE PERCENT (BEAKER) (test code = 430) 2 % MONOCYTES RELATIVE PERCENT (BEAKER) (test code = 431) 6 % EOSINOPHILS RELATIVE PERCENT (BEAKER) (test code = 432) 0 % BASOPHILS RELATIVE PERCENT (BEAKER) (test code = 437) 0 % NEUTROPHILS ABSOLUTE COUNT (BEAKER) (test code = 670) 13.37 K/ L 1.56-6.13 H LYMPHOCYTES ABSOLUTE COUNT (BEAKER) (test code = 414) 0.34 K/ L 1.18-3.74 L MONOCYTES ABSOLUTE COUNT (BEAKER) (test code = 415) 0.83 K/ L 0. 24-0.36 H EOSINOPHILS ABSOLUTE COUNT (BEAKER) (test code = 416) 0.00 K/ L 0.04-0.36 L BASOPHILS ABSOLUTE COUNT (BEAKER) (test code = 417) 0.01 K/ L 0. 01-0.08 IMMATURE GRANULOCYTES-RELATIVE PERCENT (BEAKER) (test code = 2801) 1 % 0-1 COMPREHENSIVE METABOLIC [id number] 07:07:00* Test Item Value Reference Range Interpretation Comments TOTAL PROTEIN (BEAKER) (test code = 770) 6.3 gm/dL 6.0-8.3 ALBUMIN (BEAKER) (test code = 1145) 3.9 g/dL 3.5-5.0 ALKALINE PHOSPHATASE (BEAKER) (test code = 346) 79 U/L 40-150 BILIRUBIN TOTAL (BEAKER) (test code = 377) 0.5 mg/dL 0.2-1.2 SODIUM (BEAKER) (test code = 381) 141 meq/L 136-145 POTASSIUM (BEAKER) (test code = 379) 4.4 meq/L 3.5-5.1 CHLORIDE (BEAKER) (test code = 382) 108 meq/L 98-107 H CO2 (BEAKER) (test code = 355) 24 meq/L 22-29 BLOOD UREA NITROGEN (BEAKER) (test code = 354) 17 mg/dL 7-21 CREATININE (BEAKER) (test code = 358) 0.64 mg/dL 0.57-1.25 GLUCOSE RANDOM (BEAKER) (test code = 652) 116 mg/dL 70-105 H CALCIUM (BEAKER) (test code = 697) 9.2 mg/dL 8.4-10.2 AST (SGOT) (BEAKER) (test code = 353) 26 U/L 5-34 ALT (SGPT) (BEAKER) (test code = 347) 23 U/L 6-55 EGFR (BEAKER) (test code = 1092) 94 mL/min/1.73 sq m ESTIMATED GFR IS NOT ACCURATE CREATININE CLEARANCE IN PREDICTING GLOMERULAR FILTRATION RATE. ESTIMATED GFR IS NOT APPLICABLE FOR DIALYSIS PATIENTS. Compotype Operator ID - BSBLOOD [id number] 23:02:00* Test Item Value Reference Range Interpretation Comments CULTURE (BEAKER) (test code = 1095) No growth in 5 days BLOOD [id number] 23:01:00* Test Item Value Reference Range Interpretation Comments CULTURE (BEAKER) (test code = 1095) No growth in 5 days COMPREHENSIVE METABOLIC [id number] 05:28:00* Test Item Value Reference Range Interpretation Comments TOTAL PROTEIN (BEAKER) (test code = 770) 5.8 gm/dL 6.0-8.3 L ALBUMIN (BEAKER) (test code = 1145) 3.6 g/dL 3.5-5.0 ALKALINE PHOSPHATASE (BEAKER) (test code = 346) 78 U/L 40-150 BILIRUBIN TOTAL (BEAKER) (test code = 377) 0.4 mg/dL 0.2-1.2 SODIUM (BEAKER) (test code = 381) 143 meq/L 136-145 POTASSIUM (BEAKER) (test code = 379) 3.9 meq/L 3.5-5.1 CHLORIDE (BEAKER) (test code = 382) 110 meq/L 98-107 H CO2 (BEAKER) (test code = 355) 24 meq/L 22-29 BLOOD UREA NITROGEN (BEAKER) (test code = 354) 12 mg/dL 7-21 CREATININE (BEAKER) (test code = 358) 0.67 mg/dL 0.57-1.25 GLUCOSE RANDOM (BEAKER) (test code = 652) 100 mg/dL 70-105 CALCIUM (BEAKER) (test code = 697) 8.9 mg/dL 8.4-10.2 AST (SGOT) (BEAKER) (test code = 353) 31 U/L 5-34 ALT (SGPT) (BEAKER) (test code = 347) 24 U/L 6-55 EGFR (BEAKER) (test code = 1092) 89 mL/min/1.73 sq m ESTIMATED GFR IS NOT ACCURATE CREATININE CLEARANCE IN PREDICTING GLOMERULAR FILTRATION RATE. ESTIMATED GFR IS NOT APPLICABLE FOR DIALYSIS PATIENTS. Compotype Operator ID - EDASICBC W/PLT COUNT & AUTO [id number] 05:22:00* Test Item Value Reference Range Interpretation Comments WHITE BLOOD CELL COUNT (BEAKER) (test code = 775) 5.3 K/ L 3.5- 10.5 RED BLOOD CELL COUNT (BEAKER) (test code = 761) 3.02 M/ L 3.93-5 .22 L HEMOGLOBIN (BEAKER) (test code = 410) 10.2 GM/DL 11.2-15.7 L HEMATOCRIT (BEAKER) (test code = 411) 32.6 % 34.1-44.9 L MEAN CORPUSCULAR VOLUME (BEAKER) (test code = 753) 107.9 fL 79. 4-94.8 H MEAN CORPUSCULAR HEMOGLOBIN (BEAKER) (test code = 751) 33.8 pg 25.6-32.2 H MEAN CORPUSCULAR HEMOGLOBIN CONC (BEAKER) (test code = 752) 31.3 GM/DL 32.2-35.5 L RED CELL DISTRIBUTION WIDTH (BEAKER) (test code = 412) 17.4 % 11.7-14.4 H PLATELET COUNT (BEAKER) (test code = 756) 73 K/CU MM 150-450 L MEAN PLATELET VOLUME (BEAKER) (test code = 754) 11.4 fL 9.4-12 .3 NUCLEATED RED BLOOD CELLS (BEAKER) (test code = 413) 0 /100 WBC 0 -0 NEUTROPHILS RELATIVE PERCENT (BEAKER) (test code = 429) 49 % LYMPHOCYTES RELATIVE PERCENT (BEAKER) (test code = 430) 21 % MONOCYTES RELATIVE PERCENT (BEAKER) (test code = 431) 22 % EOSINOPHILS RELATIVE PERCENT (BEAKER) (test code = 432) 5 % BASOPHILS RELATIVE PERCENT (BEAKER) (test code = 437) 0 % NEUTROPHILS ABSOLUTE COUNT (BEAKER) (test code = 670) 2.55 K/ L 1.56-6.13 LYMPHOCYTES ABSOLUTE COUNT (BEAKER) (test code = 414) 1.10 K/ L 1.18-3.74 L MONOCYTES ABSOLUTE COUNT (BEAKER) (test code = 415) 1.17 K/ L 0. 24-0.36 H EOSINOPHILS ABSOLUTE COUNT (BEAKER) (test code = 416) 0.27 K/ L 0.04-0.36 BASOPHILS ABSOLUTE COUNT (BEAKER) (test code = 417) 0.02 K/ L 0. 01-0.08 IMMATURE GRANULOCYTES-RELATIVE PERCENT (BEAKER) (test code = 2801) 3 % 0-1 H CBC W/PLT COUNT & AUTO [id number] 13:13:00* Test Item Value Reference Range Interpretation Comments WHITE BLOOD CELL COUNT (BEAKER) (test code = 775) 4.8 K/ L 3.5- 10.5 RED BLOOD CELL COUNT (BEAKER) (test code = 761) 3.01 M/ L 3.93-5 .22 L HEMOGLOBIN (BEAKER) (test code = 410) 10.3 GM/DL 11.2-15.7 L HEMATOCRIT (BEAKER) (test code = 411) 32.0 % 34.1-44.9 L MEAN CORPUSCULAR VOLUME (BEAKER) (test code = 753) 106.3 fL 79. 4-94.8 H MEAN CORPUSCULAR HEMOGLOBIN (BEAKER) (test code = 751) 34.2 pg 25.6-32.2 H MEAN CORPUSCULAR HEMOGLOBIN CONC (BEAKER) (test code = 752) 32.2 GM/DL 32.2-35.5 RED CELL DISTRIBUTION WIDTH (BEAKER) (test code = 412) 17.2 % 11.7-14.4 H PLATELET COUNT (BEAKER) (test code = 756) 58 K/CU MM 150-450 L MEAN PLATELET VOLUME (BEAKER) (test code = 754) 11.9 fL 9.4-12 .3 NUCLEATED RED BLOOD CELLS (BEAKER) (test code = 413) 0 /100 WBC 0 -0 (CELLAVISION MANUAL DIFF)2020-04-07 13:13:00* Test Item Value Reference Range Interpretation Comments NEUTROPHILS - REL (CELLAVISION)(BEAKER) (test code = 2816) 67 % LYMPHOCYTES - REL (CELLAVISION)(BEAKER) (test code = 2817) 6 % MONOCYTES - REL (CELLAVISION)(BEAKER) (test code = 2818) 19 % EOSINOPHILS - REL (CELLAVISION)(BEAKER) (test code = 2819) 2 % MYELOCYTES - REL (CELLAVISION)(BEAKER) (test code = 2822) 2 % 0-0 H BANDS - REL (CELLAVISION)(BEAKER) (test code = 2826) 3 % 0 -10 ATYPICAL LYMPHOCYTES - REL (CELLAVISION)(BEAKER) (test code = 2829) 1 % 0-0 H NEUTROPHILS - ABS (CELLAVISION)(BEAKER) (test code = 2830) 3.22 K/ul 1.56-6.13 LYMPHOCYTES - ABS (CELLAVISION)(BEAKER) (test code = 2831) 0.29 K/ul 1.18-3.74 L MONOCYTES - ABS (CELLAVISION)(BEAKER) (test code = 2832) 0.91 K/uL 0.24-0.36 H EOSINOPHILS - ABS (CELLAVISION)(BEAKER) (test code = 2834) 0.10 K/uL 0.04-0.36 MYELOCYTES-ABS (CELLAVISION)(BEAKER) (test code = 2837) 0.10 K/uL 0.00-0.00 H BANDS - ABS (CELLAVISION)(BEAKER) (test code = 2840) 0.14 K/uL 0 .00-0.80 ATYPICAL LYMPHOCYTES - ABS (CELLAVISION)(BEAKER) (test code = 2858) 0.05 K/uL 0.00-0.00 H TOTAL COUNTED (BEAKER) (test code = 1351) 100 WBC MORPHOLOGY (BEAKER) (test code = 487) Normal PLT MORPHOLOGY (BEAKER) (test code = 486) Normal ANISOCYTOSIS (BEAKER) (test code = 961) 1+ few MACROCYTES (BEAKER) (test code = 964) 1+ few ARTIFACT (CELLAVISION)(BEAKER) (test code = 3432) Present PLATELET CONCENTRATION (CELLAVISION)(BEAKER) (test code = 3438) Dec reased Compotype Operator HUNG - Rosalina OverholtUser comments: Slide comments: BASIC METABOLIC PANEL 2020-04-07 06:50:00* Test Item Value Reference Range Interpretation Comments SODIUM (BEAKER) (test code = 381) 142 meq/L 136-145 POTASSIUM (BEAKER) (test code = 379) 3.7 meq/L 3.5-5.1 CHLORIDE (BEAKER) (test code = 382) 109 meq/L 98-107 H CO2 (BEAKER) (test code = 355) 24 meq/L 22-29 BLOOD UREA NITROGEN (BEAKER) (test code = 354) 8 mg/dL 7-21 CREATININE (BEAKER) (test code = 358) 0.65 mg/dL 0.57-1.25 GLUCOSE RANDOM (BEAKER) (test code = 652) 91 mg/dL 70-105 CALCIUM (BEAKER) (test code = 697) 8.7 mg/dL 8.4-10.2 EGFR (BEAKER) (test code = 1092) 93 mL/min/1.73 sq m ESTIMATED GFR IS NOT ACCURATE CREATININE CLEARANCE IN PREDICTING GLOMERULAR FILTRATION RATE. ESTIMATED GFR IS NOT APPLICABLE FOR DIALYSIS PATIENTS. Compotype Operator HUNG - CONSUELO [facility] [place] [id number] 06:39:40Interface, External Ris In - 04/07/2020 6:39 AM CSTVentricular Rate 124 BPMAtrial Rate 124 BPMP-R Interval 154 msQRS Duration 68 msQ-T Interval 288 msQTC Calculation(Bazett) 413 msP [place] 44 degreesR [place] 28 degreesT [place] 66 degreesSinus tachycardiaOtherwise normal ECGWhen compared with ECG of 06-FEB-2020 20:34,No significant change was foundConfirmed by MD JERSON, ELLIS Pang ([id number]) on 04/07/2020 6:39:37 [facility] campusLactic acid, [id number] 13:49:00* Test Item Value Reference Range Interpretation Comments Lactate, Venous (test code = 2872) 1.09 mmol/L 0.5-2.2 KO (test code = KO) Compotype Operator ID - IVANA C Lab Interpretation (test code = 03861-6) [facility] [id number] 13:49:00* Test Item Value Reference Range Interpretation Comments LACTATE BLOOD VENOUS (2) (BEAKER) (test code = 2872) 1.09 mmol/L 0 .50-2.20 Compotype Operator ID - IVANA CCBC W/PLT COUNT & AUTO [id number] 09:24:00* Test Item Value Reference Range Interpretation Comments WHITE BLOOD CELL COUNT (BEAKER) (test code = 775) 6.1 K/ L 3.5- 10.5 RED BLOOD CELL COUNT (BEAKER) (test code = 761) 2.83 M/ L 3.93-5 .22 L HEMOGLOBIN (BEAKER) (test code = 410) 9.5 GM/DL 11.2-15.7 L HEMATOCRIT (BEAKER) (test code = 411) 30.8 % 34.1-44.9 L MEAN CORPUSCULAR VOLUME (BEAKER) (test code = 753) 108.8 fL 79. 4-94.8 H MEAN CORPUSCULAR HEMOGLOBIN (BEAKER) (test code = 751) 33.6 pg 25.6-32.2 H MEAN CORPUSCULAR HEMOGLOBIN CONC (BEAKER) (test code = 752) 30.8 GM/DL 32.2-35.5 L RED CELL DISTRIBUTION WIDTH (BEAKER) (test code = 412) 17.3 % 11.7-14.4 H PLATELET COUNT (BEAKER) (test code = 756) 42 K/CU MM 150-450 L MEAN PLATELET VOLUME (BEAKER) (test code = 754) 12.4 fL 9.4-12 .3 H NUCLEATED RED BLOOD CELLS (BEAKER) (test code = 413) 0 /100 WBC 0 -0 (CELLAVISION MANUAL DIFF)2020-04-06 09:24:00* Test Item Value Reference Range Interpretation Comments NEUTROPHILS - REL (CELLAVISION)(BEAKER) (test code = 2816) 74 % LYMPHOCYTES - REL (CELLAVISION)(BEAKER) (test code = 2817) 5 % MONOCYTES - REL (CELLAVISION)(BEAKER) (test code = 2818) 10 % EOSINOPHILS - REL (CELLAVISION)(BEAKER) (test code = 2819) 2 % BANDS - REL (CELLAVISION)(BEAKER) (test code = 2826) 8 % 0 -10 ATYPICAL LYMPHOCYTES - REL (CELLAVISION)(BEAKER) (test code = 2829) 1 % 0-0 H NEUTROPHILS - ABS (CELLAVISION)(BEAKER) (test code = 2830) 4.51 K/ul 1.56-6.13 LYMPHOCYTES - ABS (CELLAVISION)(BEAKER) (test code = 2831) 0.31 K/ul 1.18-3.74 L MONOCYTES - ABS (CELLAVISION)(BEAKER) (test code = 2832) 0.61 K/uL 0.24-0.36 H EOSINOPHILS - ABS (CELLAVISION)(BEAKER) (test code = 2834) 0.12 K/uL 0.04-0.36 BANDS - ABS (CELLAVISION)(BEAKER) (test code = 2840) 0.49 K/uL 0 .00-0.80 ATYPICAL LYMPHOCYTES - ABS (CELLAVISION)(BEAKER) (test code = 2858) 0.06 K/uL 0.00-0.00 H TOTAL COUNTED (BEAKER) (test code = 1351) 100 WBC MORPHOLOGY (BEAKER) (test code = 487) Normal PLT MORPHOLOGY (BEAKER) (test code = 486) Normal POLYCHROMATOPHILLIC RBCS(BEAKER) (test code = 478) 1+ few ANISOCYTOSIS (BEAKER) (test code = 961) 1+ few ARTIFACT (CELLAVISION)(BEAKER) (test code = 3432) Present PLATELET CONCENTRATION (CELLAVISION)(BEAKER) (test code = 3438) Dec reased Compotype Operator ID - [id number] ID - Rosalina OverholtUser comments: Slide comments: BASIC METABOLIC [id number] 06:12:00* Test Item Value Reference Range Interpretation Comments SODIUM (BEAKER) (test code = 381) 142 meq/L 136-145 POTASSIUM (BEAKER) (test code = 379) 3.8 meq/L 3.5-5.1 CHLORIDE (BEAKER) (test code = 382) 111 meq/L 98-107 H CO2 (BEAKER) (test code = 355) 21 meq/L 22-29 L BLOOD UREA NITROGEN (BEAKER) (test code = 354) 10 mg/dL 7-21 CREATININE (BEAKER) (test code = 358) 0.69 mg/dL 0.57-1.25 GLUCOSE RANDOM (BEAKER) (test code = 652) 96 mg/dL 70-105 CALCIUM (BEAKER) (test code = 697) 8.6 mg/dL 8.4-10.2 EGFR (BEAKER) (test code = 1092) 86 mL/min/1.73 sq m ESTIMATED GFR IS NOT ACCURATE CREATININE CLEARANCE IN PREDICTING GLOMERULAR FILTRATION RATE. ESTIMATED GFR IS NOT APPLICABLE FOR DIALYSIS PATIENTS. Compotype Operator ID - CONSUELO MRAD, CHEST, 1 VIEW, NON [id number] 22:56:00Reason for exam:->SOBShould this be performed at the bedside?->Yes [facility] : 1960 Sex: F FINAL REPORT RAD, CHEST, 1 VIEW, NON DEPT INDICATION: SOB COMPARISON: 04/03/2020 FI NDINGS: Portable frontal view of the chest. IMPRESSION: Support Lines: Stable right PICC Lungs and pleura: Unchanged bandlike atelectasis in the right midlun g and left upper lobe. No consolidation or sizable effusion. No pneumothorax.Hea rt and mediastinum: Stable contours.Additional findings: None. Signed: Jorden More MDReport Verified Date/Time: 04/05/2020 22:56:51 Electronically sig sonia by: TAYLER MORE MD on 04/05/2020 10:56 PM XR chest 1 view portable / [id number] 22:56:00Interface, External Ris In - 04/05/2020 10:59 PM CSTFINAL REPORT RAD, CHEST, 1 VIEW, NON DEPT INDICATION: SOB COMPARISON: 04/03/2020 FINDINGS: Portable frontal view of the chest. IMPRESSION: Support Lines: Stable right PICC Lungs and pleura: Unchanged bandlike atelectasis in the right midlung and left upper lobe. No consolidation or sizable effusion. No pneumothorax.Heart and mediastinum: Stable contours.Additional findings: None. Signed: Tayler More MDReport Verified Date/Time: 04/05/2020 22:56:51 [facility] Arter[facility] 2020-04-05 22:36:00* Test Item Value Reference Range Interpretation Comments Lactate, Art (test code = 2874) 4.0 mmol/L 0.5-2.2 HH Specimen slightly hemolyzed KO (test code = KO) Compotype Operator ID - DB Lab Interpretation (test code = 85367-5) Abnormal [facility]aLACT[facility] ACID, [id number] 22:36:00* Test Item Value Reference Range Interpretation Comments LACTATE BLOOD ARTERIAL (2) (BEAKER) (test code = 2874) 4.0 mmol/L 0.5-2.2 HH Specimen slightly hemolyzed Compotype Operator ID - DBBASIC METABOLIC [id number] 22:30:00* Test Item Value Reference Range Interpretation Comments SODIUM (BEAKER) (test code = 381) 140 meq/L 136-145 POTASSIUM (BEAKER) (test code = 379) 4.1 meq/L 3.5-5.1 CHLORIDE (BEAKER) (test code = 382) 107 meq/L 98-107 CO2 (BEAKER) (test code = 355) 20 meq/L 22-29 L BLOOD UREA NITROGEN (BEAKER) (test code = 354) 12 mg/dL 7-21 CREATININE (BEAKER) (test code = 358) 0.75 mg/dL 0.57-1.25 GLUCOSE RANDOM (BEAKER) (test code = 652) 106 mg/dL 70-105 H CALCIUM (BEAKER) (test code = 697) 8.7 mg/dL 8.4-10.2 EGFR (BEAKER) (test code = 1092) 79 mL/min/1.73 sq m ESTIMATED GFR IS NOT ACCURATE CREATININE CLEARANCE IN PREDICTING GLOMERULAR FILTRATION RATE. ESTIMATED GFR IS NOT APPLICABLE FOR DIALYSIS PATIENTS. Compotype Operator ID - DBPOC-Blood gases, [id number] 22:16:00* Test Item Value Reference Range Interpretation Comments Temp. Celsius-POC (test code = 1834) 99.9 FIO2-POC (test code = 1835) 100 pH, Arterial-POC (test code = 1836) 7.507 7.350-7.450 H PCO2, Arterial-POC (test code = 1837) 28.0 35.0- 45.0 mm Hg L PO2, Arterial-POC (test code = 1838) 228.0 80.0- 90.0 mm Hg H SO2, Arterial-POC (test code = 1839) 100.0 % 96-97 H HCO3, Arterilal-POC (test code = 1840) 22.0 meq/L 21-29 BE, Arterial-POC (test code = 1841) -1.0 meq/L -2-3 : TESTED AT [facility] [address] [facility], [address]: Compotype Operator/Cigarette Stamper ID = [id number] for ELIZABETH SIMMONS Lab Interpretation (test code = 96578-4) Abnormal [facility]-Calcium [id number] 22:16:00* Test Item Value Reference Range Interpretation Comments POC-Calcium Ionized (test code = 1536) 1.09 mmol/L 1.12-1.27 L : TESTED AT [address], [address]: Compotype Operator/Cigarette Stamper ID = [id number] for JOSSUE SIMMONSGERALD Lab Interpretation (test code = 18350-8) Abnormal [facility]-[id number] 22:16:00* Test Item Value Reference Range Interpretation Comments POC-Potassium (test code = 1540) 5.5 meq/L 3.6-5.5 : TESTED AT [address], [address]: Compotype Operator/Cigarette Stamper ID = [id number] for MIKAYLA SIMMONSALD Lab Interpretation (test code = 51001-9) Normal [facility]-[id number] 22:16:00* Test Item Value Reference Range Interpretation Comments POC-Sodium (test code = 1542) 135 meq/L 135-148 : TESTED AT [address], [address]: Compotype Operator/Cigarette Stamper ID = [id number] for JOSSUE SIMMONSGERALD Lab Interpretation (test code = 97448-2) Normal [facility]-[id number] 22:16:00* Test Item Value Reference Range Interpretation Comments POC-Glucose (test code = 1855) 111 mg/dL 70-110 H : TESTED AT [address], [address]: Compotype Operator/Cigarette Stamper ID = [id number] for JOSSUE SIMMONSGERALD Lab Interpretation (test code = 69413-0) Abnormal [facility]-[id number] 22:16:00* Test Item Value Reference Range Interpretation Comments POC-Hemoglobin (test code = 1856) 10.9 g/dL 12-15 L : TESTED AT [address], [address]: Compotype Operator/Cigarette Stamper ID = [id number] for BAYANGNAOMIJOHNSON Lab Interpretation (test code = 31310-9) Abnormal [facility]-[id number] 22:16:00* Test Item Value Reference Range Interpretation Comments POC-Hematocrit (test code = 1857) 32 % 36-45 L : Compotype Operator/Cigarette Stamper ID = [id number] for ELIZABETH SIMMONS Lab Interpretation (test code = 31236-8) [facility], [id number] 22:16:00* Test Item Value Reference Range Interpretation Comments TEMP, CELSIUS-POC (BEAKER) (test code = 1834) 99.9 FIO2-POC (BEAKER) (test code = 1835) 100 PH, ARTERIAL-POC (BEAKER) (test code = 1836) 7.507 7.350-7.4 50 H PCO2, ARTERIAL-POC (BEAKER) (test code = 1837) 28.0 mm Hg 35.0-45 .0 L PO2, ARTERIAL-POC (BEAKER) (test code = 1838) 228.0 mm Hg 80.0-90. 0 H SO2, ARTERIAL-POC (BEAKER) (test code = 1839) 100.0 % 96.0-97. 0 H HCO3, ARTERIAL-POC (BEAKER) (test code = 1840) 22.0 meq/L 21.0-29 .0 BASE EXCESS, ARTERIAL-POC (BEAKER) (test code = 1841) -1.0 meq/L -2.0-3.0 : TESTED AT [address], [address]: Compotype Operator/Cigarette Stamper ID = [id number] for ELIZABETH SIMMONS [id number] 22:16:00* Test Item Value Reference Range Interpretation Comments POC-SODIUM (BEAKER) (test code = 1542) 135 meq/L 135-148 : TESTED AT [address], [address]: Compotype Operator/Cigarette Stamper ID = [id number] for ELIZABETH SIMMONS RENO-[id number] 22:16:00* Test Item Value Reference Range Interpretation Comments POC-POTASSIUM (BEAKER) (test code = 1540) 5.5 meq/L 3.6-5.5 : TESTED AT [address], [address]: Compotype Operator/Cigarette Stamper ID = [id number] for ELIZABETH SIMMONS [id number]-[id number] 22:16:00* Test Item Value Reference Range Interpretation Comments POC-HEMOGLOBIN (BEAKER) (test code = 1856) 10.9 g/dL 12.0-15.0 L : TESTED AT [place] [id number] [facility], [address]: Compotype Operator/Cigarette Stamper ID = [id number] for ELIZABETH SIMMONS [id number] 22:16:00* Test Item Value Reference Range Interpretation Comments POC-HEMATOCRIT (BEAKER) (test code = 1857) 32 % 36-45 L : Compotype Operator/Cigarette Stamper ID = [id number] for ELZIABETH SIMMONS POCT-CALCIUM [id number] 22:16:00* Test Item Value Reference Range Interpretation Comments POC-CALCIUM IONIZED (OWENAKER) (test code = 1536) 1.09 mmol/L 1.12-1 .27 L : TESTED AT [facility] [address] [facility], [address]: Compotype Operator/Cigarette Stamper ID = [id number] for ELIZABETH SIMMONS [id number] 22:16:00* Test Item Value Reference Range Interpretation Comments POC-GLUCOSE (DEBBIE) (test code = 1855) 111 mg/dL 70-110 H : TESTED AT [address], [address]: Compotype Operator/Cigarette Stamper ID = [id number] for ELIZABETH SIMMONS SARS-COV2/RT-PCR ([facility])2020-04-05 08:01:00* Test Item Value Reference Range Interpretation Comments SARS-COV2/RT-PCR (test code = 9782077) Negative N ot Detected, Negative, See external report for linked test SARS-COV-2 PERFORMING LAB (test code = 7534877) [facility] Negative result for this test determines that SARS-CoV-2 RNA was not present in the specimen above the Limit of Detection (LOD). However, Negative results do n ot preclude SARS-CoV-2 infection and should not be used as the sole basis for tr eatment or patient management decisions. Negative results must be combined with clinical observations, patient history, and epidemiological information. A false negative result may occur if a specimen is improperly collected, transported or handled. A false negative result should be considered if patient's recent expo sures or clinical presentation indicate that COVID-19 (SARS-CoV-2) is likely and diagnostic tests for other causes of illness are negative. Re-testing should b e considered in cases of suspected false negatives.The limit of detection for th is assay is 100 copies/mL.This SARS CoV-2 test is a real-time RT-PCR test intend ed for the qualitative detection of nucleic acid from SARS-CoV-2 in a nasopharyn geal swab specimen collected from individuals suspected of COVID-19 by their [facility] provider.This test has not been Food and Drug Administration (FDA) clear ed or approved. This is a modified version of an approved Emergency Use Authori zation (EUA) and is in the process of review by the FDA. Once authorized by [facility] FDA, the issued EUA will be effective until the declaration that circumstances exist justifying the authorization of the emergency use of in vitro diagnostic tests for detection and/or diagnosis of COVID-19 is terminated under Section 564 (b)(2) of the Act or the EUA is revoked under Section 564(g) of the Act.Testing was performed using the [employer] SARS-CoV-2 assay.Fact Sheet for Healthcare Provid ers:https://www.molecular.shaffer/hina/GT_CQOO-HwB-3_YNN_Sfoq_Dnhcb_55-243231.pdfF act Sheet for Healthcare Patients:https://www.molecular.shaffer/hina/KJ_UTVH-VcY-6 _Patient_Fact_Sheet_EN_51-243898W1.pdfPerforming Laboratory:[address] [address]IDHQV METABOLIC [id number] 06:11:00* Test Item Value Reference Range Interpretation Comments SODIUM (BEAKER) (test code = 381) 143 meq/L 136-145 POTASSIUM (BEAKER) (test code = 379) 3.7 meq/L 3.5-5.1 CHLORIDE (BEAKER) (test code = 382) 112 meq/L 98-107 H CO2 (BEAKER) (test code = 355) 23 meq/L 22-29 BLOOD UREA NITROGEN (BEAKER) (test code = 354) 11 mg/dL 7-21 CREATININE (BEAKER) (test code = 358) 0.66 mg/dL 0.57-1.25 GLUCOSE RANDOM (BEAKER) (test code = 652) 86 mg/dL 70-105 CALCIUM (BEAKER) (test code = 697) 8.7 mg/dL 8.4-10.2 EGFR (BEAKER) (test code = 1092) 91 mL/min/1.73 sq m ESTIMATED GFR IS NOT ACCURATE CREATININE CLEARANCE IN PREDICTING GLOMERULAR FILTRATION RATE. ESTIMATED GFR IS NOT APPLICABLE FOR DIALYSIS PATIENTS. Compotype Operator ID - EDASICBC W/PLT COUNT & AUTO [id number] 06:04:00* Test Item Value Reference Range Interpretation Comments WHITE BLOOD CELL COUNT (BEAKER) (test code = 775) 6.0 K/ L 3.5- 10.5 RED BLOOD CELL COUNT (BEAKER) (test code = 761) 2.89 M/ L 3.93-5 .22 L HEMOGLOBIN (BEAKER) (test code = 410) 10.0 GM/DL 11.2-15.7 L HEMATOCRIT (BEAKER) (test code = 411) 31.8 % 34.1-44.9 L MEAN CORPUSCULAR VOLUME (BEAKER) (test code = 753) 110.0 fL 79. 4-94.8 H MEAN CORPUSCULAR HEMOGLOBIN (BEAKER) (test code = 751) 34.6 pg 25.6-32.2 H MEAN CORPUSCULAR HEMOGLOBIN CONC (BEAKER) (test code = 752) 31.4 GM/DL 32.2-35.5 L RED CELL DISTRIBUTION WIDTH (BEAKER) (test code = 412) 17.5 % 11.7-14.4 H PLATELET COUNT (BEAKER) (test code = 756) 46 K/CU MM 150-450 L MEAN PLATELET VOLUME (BEAKER) (test code = 754) 12.7 fL 9.4-12 .3 H NUCLEATED RED BLOOD CELLS (BEAKER) (test code = 413) 0 /100 WBC 0 -0 NEUTROPHILS RELATIVE PERCENT (BEAKER) (test code = 429) 68 % LYMPHOCYTES RELATIVE PERCENT (BEAKER) (test code = 430) 13 % MONOCYTES RELATIVE PERCENT (BEAKER) (test code = 431) 17 % EOSINOPHILS RELATIVE PERCENT (BEAKER) (test code = 432) 2 % BASOPHILS RELATIVE PERCENT (BEAKER) (test code = 437) 0 % NEUTROPHILS ABSOLUTE COUNT (BEAKER) (test code = 670) 4.05 K/ L 1.56-6.13 LYMPHOCYTES ABSOLUTE COUNT (BEAKER) (test code = 414) 0.75 K/ L 1.18-3.74 L MONOCYTES ABSOLUTE COUNT (BEAKER) (test code = 415) 1.03 K/ L 0. 24-0.36 H EOSINOPHILS ABSOLUTE COUNT (BEAKER) (test code = 416) 0.10 K/ L 0.04-0.36 BASOPHILS ABSOLUTE COUNT (BEAKER) (test code = 417) 0.01 K/ L 0. 01-0.08 IMMATURE GRANULOCYTES-RELATIVE PERCENT (BEAKER) (test code = 2801) 1 % 0-1 CT, SINUS, WITH IV [id number] 02:04:00Unlisted Reason for Exam - Click Yes and Enter Reason Below->No [facility] : 1960 Sex: F FINAL REPORT EXAM: CT, SINUS, WITH IV CONTRAST CLINICAL INDICATION: Sinusitis. MAKENNA HNIQUE: Helical CT examination of the paranasal sinuses with IV contrast. Axial, sagittal and coronal reformations were generated. This exam was performed accor ding to our departmental dose-optimization program, which includes automated exp osure control, adjustment of the mA and/or kV according to patient size and/or u se of iterative reconstruction technique.ESRC.1.1.1 COMPARISON: 03/10/2020 FINDI NGS: Extra-sinus Soft Tissues: Normal Paranasal Sinuses: Predominately clear. P revious mucosal thickening that was present within the bilateral ethmoidal air c ells and left sphenoid sinus has significantly improved. Lamina Papyracea: Intac tCribriform Plate, Lateral Lamella and Ethmoid Roofs: IntactRetroantral Fat: Nor malPremaxillary Soft Tissues: Normal Nasal Cavity: Clear.Nasopharynx: Normal Inc luded Intracranial Structures: Mild intracranial ICA atherosclerotic calcificati ons.Included Orbits: NormalTympanomastoid Cavities: Clear IMPRESSION:No signifi cant paranasal sinus disease. Significant interval decreased mucosal thickening compared to prior CT. Signed: Tayler Moreort Verified Date/Time: 02:04:23 02 :[address] sinus with iv [id number] 02:04:00Interface, External Ris In - 04/05/2020 2:07 AM CSTFINAL REPORT EXAM: CT, SINUS, WITH IV CONTRAST CLINICAL INDICATION: Sinusitis. TECHNIQUE: Helical CT examination of the paranasal sinuses with IV contrast. Axial, sagittal and coronal reformations were generated. This exam was performed according to our departmental dose-optimization program, which includes automated exposure control, adjustment of the mA and/or kV according to patient size and/or use of iterative reconstruction technique.ESRC.1.1.1 COMPARISON: 03/10/2020 FINDINGS: Extra-sinus Soft Tissues: Normal Paranasal Sinuses: Predominately clear. Prev ious mucosal thickening that was present within the bilateral ethmoidal air cell s and left sphenoid sinus has significantly improved. Lamina Papyracea: IntactCr ibriform Plate, Lateral Lamella and Ethmoid Roofs: IntactRetroantral Fat: Normal Premaxillary Soft Tissues: Normal Nasal Cavity: Clear.Nasopharynx: Normal Includ ed Intracranial Structures: Mild intracranial ICA atherosclerotic calcifications .Included Orbits: NormalTympanomastoid Cavities: Clear IMPRESSION:No significan t paranasal sinus disease. Significant interval decreased mucosal thickening com pared to prior CT. Signed: Tayler More Verified Date/Time: 04/05/2020 02:04:23 [facility](CELLAVISION MANUAL DIFF)2020-04-04 15:38:00* Test Item Value Reference Range Interpretation Comments NEUTROPHILS - REL (CELLAVISION)(BEAKER) (test code = 2816) 78 % LYMPHOCYTES - REL (CELLAVISION)(BEAKER) (test code = 2817) 2 % MONOCYTES - REL (CELLAVISION)(BEAKER) (test code = 2818) 9 % BANDS - REL (CELLAVISION)(BEAKER) (test code = 2826) 10 % 0 -10 ATYPICAL LYMPHOCYTES - REL (CELLAVISION)(BEAKER) (test code = 2829) 1 % 0-0 H NEUTROPHILS - ABS (CELLAVISION)(BEAKER) (test code = 2830) 5.38 K/ul 1.56-6.13 LYMPHOCYTES - ABS (CELLAVISION)(BEAKER) (test code = 2831) 0.14 K/ul 1.18-3.74 L MONOCYTES - ABS (CELLAVISION)(BEAKER) (test code = 2832) 0.62 K/uL 0.24-0.36 H BANDS - ABS (CELLAVISION)(BEAKER) (test code = 2840) 0.69 K/uL 0 .00-0.80 ATYPICAL LYMPHOCYTES - ABS (CELLAVISION)(BEAKER) (test code = 2858) 0.07 K/uL 0.00-0.00 H TOTAL COUNTED (BEAKER) (test code = 1351) 100 WBC MORPHOLOGY (BEAKER) (test code = 487) Normal GIANT PLATELETS (BEAKER) (test code = 313) Present POLYCHROMATOPHILLIC RBCS(BEAKER) (test code = 478) 1+ few ANISOCYTOSIS (BEAKER) (test code = 961) 1+ few MACROCYTES (BEAKER) (test code = 964) 1+ few ARTIFACT (CELLAVISION)(BEAKER) (test code = 3432) Present PLATELET CONCENTRATION (CELLAVISION)(BEAKER) (test code = 3438) Dec reased [employer] Operator ID - Marielena Angel comments: Slide comments: CBC W/PLT COUNT & AUTO [id number] 15:13:00* Test Item Value Reference Range Interpretation Comments WHITE BLOOD CELL COUNT (BEAKER) (test code = 775) 6.9 K/ L 3.5- 10.5 RED BLOOD CELL COUNT (BEAKER) (test code = 761) 3.07 M/ L 3.93-5 .22 L HEMOGLOBIN (BEAKER) (test code = 410) 10.6 GM/DL 11.2-15.7 L HEMATOCRIT (BEAKER) (test code = 411) 33.1 % 34.1-44.9 L MEAN CORPUSCULAR VOLUME (BEAKER) (test code = 753) 107.8 fL 79. 4-94.8 H MEAN CORPUSCULAR HEMOGLOBIN (BEAKER) (test code = 751) 34.5 pg 25.6-32.2 H MEAN CORPUSCULAR HEMOGLOBIN CONC (BEAKER) (test code = 752) 32.0 GM/DL 32.2-35.5 L RED CELL DISTRIBUTION WIDTH (BEAKER) (test code = 412) 17.7 % 11.7-14.4 H PLATELET COUNT (BEAKER) (test code = 756) 53 K/CU MM 150-450 L MEAN PLATELET VOLUME (BEAKER) (test code = 754) 11.9 fL 9.4-12 .3 NUCLEATED RED BLOOD CELLS (BEAKER) (test code = 413) 0 /100 WBC 0 -0 BASIC METABOLIC [id number] 08:04:00* Test Item Value Reference Range Interpretation Comments SODIUM (BEAKER) (test code = 381) 141 meq/L 136-145 POTASSIUM (BEAKER) (test code = 379) 3.3 meq/L 3.5-5.1 L CHLORIDE (BEAKER) (test code = 382) 109 meq/L 98-107 H CO2 (BEAKER) (test code = 355) 21 meq/L 22-29 L BLOOD UREA NITROGEN (BEAKER) (test code = 354) 10 mg/dL 7-21 CREATININE (BEAKER) (test code = 358) 0.70 mg/dL 0.57-1.25 GLUCOSE RANDOM (BEAKER) (test code = 652) 121 mg/dL 70-105 H CALCIUM (BEAKER) (test code = 697) 8.5 mg/dL 8.4-10.2 EGFR (BEAKER) (test code = 1092) 85 mL/min/1.73 sq m ESTIMATED GFR IS NOT ACCURATE CREATININE CLEARANCE IN PREDICTING GLOMERULAR FILTRATION RATE. ESTIMATED GFR IS NOT APPLICABLE FOR DIALYSIS PATIENTS. Compotype Operator ID - PIAYA LLACTIC ACID, [id number] 07:00:00* Test Item Value Reference Range Interpretation Comments LACTATE BLOOD VENOUS (2) (BEAKER) (test code = 0732) 0.95 mmol/L 0 .50-2.20 Compotype Operator ID - PIAYA LCOMPREHENSIVE METABOLIC [id number] 20:31:00* Test Item Value Reference Range Interpretation Comments TOTAL PROTEIN (BEAKER) (test code = 770) 6.8 gm/dL 6.0-8.3 ALBUMIN (BEAKER) (test code = 1145) 4.3 g/dL 3.5-5.0 ALKALINE PHOSPHATASE (BEAKER) (test code = 346) 87 U/L 40-150 BILIRUBIN TOTAL (BEAKER) (test code = 377) 0.5 mg/dL 0.2-1.2 SODIUM (BEAKER) (test code = 381) 142 meq/L 136-145 POTASSIUM (BEAKER) (test code = 379) 4.3 meq/L 3.5-5.1 CHLORIDE (BEAKER) (test code = 382) 106 meq/L 98-107 CO2 (BEAKER) (test code = 355) 23 meq/L 22-29 BLOOD UREA NITROGEN (BEAKER) (test code = 354) 14 mg/dL 7-21 CREATININE (BEAKER) (test code = 358) 0.94 mg/dL 0.57-1.25 GLUCOSE RANDOM (BEAKER) (test code = 652) 201 mg/dL 70-105 H CALCIUM (BEAKER) (test code = 697) 9.8 mg/dL 8.4-10.2 AST (SGOT) (BEAKER) (test code = 353) 38 U/L 5-34 H ALT (SGPT) (BEAKER) (test code = 347) 31 U/L 6-55 EGFR (BEAKER) (test code = 1092) 61 mL/min/1.73 sq m ESTIMATED GFR IS NOT ACCURATE CREATININE CLEARANCE IN PREDICTING GLOMERULAR FILTRATION RATE. ESTIMATED GFR IS NOT APPLICABLE FOR DIALYSIS PATIENTS. Compotype Operator ID - BSCBC W/PLT COUNT & AUTO [id number] 20:30:00* Test Item Value Reference Range Interpretation Comments WHITE BLOOD CELL COUNT (BEAKER) (test code = 775) 8.4 K/ L 3.5- 10.5 RED BLOOD CELL COUNT (BEAKER) (test code = 761) 3.41 M/ L 3.93-5 .22 L HEMOGLOBIN (BEAKER) (test code = 410) 11.9 GM/DL 11.2-15.7 HEMATOCRIT (BEAKER) (test code = 411) 36.2 % 34.1-44.9 MEAN CORPUSCULAR VOLUME (BEAKER) (test code = 753) 106.2 fL 79. 4-94.8 H MEAN CORPUSCULAR HEMOGLOBIN (BEAKER) (test code = 751) 34.9 pg 25.6-32.2 H MEAN CORPUSCULAR HEMOGLOBIN CONC (BEAKER) (test code = 752) 32.9 GM/DL 32.2-35.5 RED CELL DISTRIBUTION WIDTH (BEAKER) (test code = 412) 17.6 % 11.7-14.4 H PLATELET COUNT (BEAKER) (test code = 756) 89 K/CU MM 150-450 L MEAN PLATELET VOLUME (BEAKER) (test code = 754) 10.9 fL 9.4-12 .3 NUCLEATED RED BLOOD CELLS (BEAKER) (test code = 413) 0 /100 WBC 0 -0 NEUTROPHILS RELATIVE PERCENT (BEAKER) (test code = 429) 88 % LYMPHOCYTES RELATIVE PERCENT (BEAKER) (test code = 430) 4 % MONOCYTES RELATIVE PERCENT (BEAKER) (test code = 431) 7 % EOSINOPHILS RELATIVE PERCENT (BEAKER) (test code = 432) 0 % BASOPHILS RELATIVE PERCENT (BEAKER) (test code = 437) 0 % NEUTROPHILS ABSOLUTE COUNT (BEAKER) (test code = 670) 7.46 K/ L 1.56-6.13 H LYMPHOCYTES ABSOLUTE COUNT (BEAKER) (test code = 414) 0.32 K/ L 1.18-3.74 L MONOCYTES ABSOLUTE COUNT (BEAKER) (test code = 415) 0.61 K/ L 0. 24-0.36 H EOSINOPHILS ABSOLUTE COUNT (BEAKER) (test code = 416) 0.01 K/ L 0.04-0.36 L BASOPHILS ABSOLUTE COUNT (BEAKER) (test code = 417) 0.01 K/ L 0. 01-0.08 IMMATURE GRANULOCYTES-RELATIVE PERCENT (BEAKER) (test code = 2801) 0 % 0-1 Urinalysis w/Microscopic + Reflex to [id number] 20:26:00* Test Item Value Reference Range Interpretation Comments Color, UA (test code = 5778-6) Yellow Clarity, UA (test code = 5767-9) Clear Specific [place], UA (test code = 5811-5) 1.023 1.001-1.035 pH, UA (test code = 5803-2) 5.5 5.0-8.0 Protein, UA (test code = 56512-7) 10 mg/dL Negative A Glucose, UA (test code = 365) Negative Negative Ketones, UA (test code = 2514-8) Trace Negative A Bilirubin, UA (test code = 06538-3) Negative Negative Blood, UA (test code = 02275-0) Negative Negative Nitrite, UA (test code = 5802-4) Negative Negative Leukocytes, UA (test code = 5799-2) Trace Negative A Urobilinogen, UA (test code = 22534-9) 0.2 mg/dL 0.2-1 RBC, UA (test code = 03815-8) <1 /HPF WBC, UA (test code = 5821-4) 2 /HPF Mucus (test code = 8247-9) Few Squam Epithel, UA (test code = 22112-0) <1 /HPF Specimen Source (test code = 2795) KO (test code = KO) Compotype Operator ID - [auto]Compotype Operator ID - tech Lab Interpretation (test code = 84383-3) [facility] [id number] 20:26:00* Test Item Value Reference Range Interpretation Comments COLOR (BEAKER) (test code = 470) Yellow CLARITY (BEAKER) (test code = 469) Clear SPECIFIC GRAVITY UA (BEAKER) (test code = 468) 1.023 1.001-1 .035 PH UA (BEAKER) (test code = 467) 5.5 5.0-8.0 PROTEIN UA (BEAKER) (test code = 464) 10 mg/dL Negative A GLUCOSE UA (BEAKER) (test code = 365) Negative Negative KETONES UA (BEAKER) (test code = 371) Trace Negative A BILIRUBIN UA (BEAKER) (test code = 462) Negative Negative BLOOD UA (BEAKER) (test code = 461) Negative Negative NITRITE UA (BEAKER) (test code = 465) Negative Negative LEUKOCYTE ESTERASE UA (BEAKER) (test code = 466) Trace Negat neetu A UROBILINOGEN UA (BEAKER) (test code = 463) 0.2 mg/dL 0.2-1.0 RBC UA (BEAKER) (test code = 519) < /HPF WBC UA (BEAKER) (test code = 520) 2 /HPF MUCUS (BEAKER) (test code = 1574) Few SQUAMOUS EPITHELIAL (BEAKER) (test code = 516) < /HPF SOURCE(BEAKER) (test code = 2795) Compotype Operator ID - [auto]Compotype Operator ID - techLACTIC ACID, [id number] 20:25:00* Test Item Value Reference Range Interpretation Comments LACTATE BLOOD VENOUS (2) (BEAKER) (test code = 2872) 3.08 mmol/L 0 .50-2.20 H Specimen slightly hemolyzed Compotype Operator ID - BSRAD, CHEST, 2 [id number] 18:54:00Reason for exam:->FEVER [facility] : 1960 Sex: F FINAL REPORT PA and Lateral views of the chest dated 04/03/2020 COMPARISON: [facility] r 2019 Clinical information: FEVER Comment: Heart is normal in size. Pulmon saul vasculature is unremarkable. Subsegmental atelectasis is seen in the left up per lobe and right mid lung. The rest of the lungs are clear. A skinfold is seen in the right lower chest simulating pneumothorax. No pulmonary infiltrate or pl eural effusion is present. Right PICC line remains in place. Impression: No pneu monia. Signed: Tayler Gallego MDReport Verified Date/Time: 04/03/2020 18:54:14 Candelaria nieves Location: [facility] C0[facility] Consult Reading Room chest 2 fweuy1730-08-81 18:54:00 Interface, External Ris In - 04/03/2020 6:56 PM CSTFINAL REPORT PATIENT ID: [id number] PA and Lateral views of the chest dated 04/03/2020 COMPARISON: February 272019 Clinical information: FEVER Comment: Heart is normal in size. Pulmonary vasculature is unremarkable. Subsegmental atelectasis is seen in the left upper lobe and right mid lung. The rest of the lungs are clear. A skinfold is seen in the right lower chest simulating pneumothorax. No pulmonary infiltrate or pleur al effusion is present. Right PICC line remains in place. Impression: No pneumon ia. Signed: Tayler Gallego MDReport Verified Date/Time: 04/03/2020 18:54:14 Readin g Location: [facility] C013W Consult [facility] full [facility] by [id number] 07:15:48* Test Item Value Reference Range Interpretation Comments Interpretation (test code = 7331910) Note: HLA typing was performed by PCR-SSO DNA based procedures.Note: The serological phenotype is an interpretation based on molecular typing data. Case number (test code = 1324069) [id number] Low resolution full typing by SSO (test code = 1359) S ee link below for PDF Lab Report [facility] MethodistFamily typing (haplotype report)2020-03-31 13:23:47* Test Item Value Reference Range Interpretation Comments Case number (test code = 8181420) [id number] Famiy typing (haplotype report) (test code = 2576) See link below for PDF Lab Report [place] MethodistSurgical pathology nqtpywf1025-49-80 09:14:40* Test Item Value Reference Range Interpretation Comments Case number (test code = 8365558) [id number] Surgical pathology report (test code = 2255) See link below for PDF Lab Report Result status (test code = 3442574) This is Final Report for [id number] 9720-32 [facility] MethodistToxoplasma IgM Ze1295-86-26 17:42:31* Test Item Value Reference Range Interpretation Comments Toxoplasma IgM (test code = 8040-8) Negative Negative [place] MethodistFlow cytometry ydapybsqly5582-15-81 11:56:49* Test Item Value Reference Range Interpretation Comments Case number (test code = 6057012) [id number] Flow cytometry evaluation (test code = 6692915) See josias morrissey below for PDF Lab Report [facility] MethodistCv stress bmkn9824-13-02 04:40:10* Test Item Value Reference Range Interpretation Comments Resting HR (test code = 0533874401) 75 Resting BP (test code = 6310239587) 146&75 Peak MET Achieved (test code = 1819366125) 1 Protocol Name (test code = 6140443643) REGADENO Time in Exercise Phase (test code = 4672047699) 00:01:00 Max Systolic BP (test code = 9499464503) 163 Max Diastolic BP (test code = 2591859494) 74 Max Heart Rate (test code = 2747662406) 110 Max Predicted Heart Rate (test code = 1782818009) 159 Target HR Formula (test code = 5395666316) (220 - Age)*100% Test Indication (test code = 7272717830) PRE TRANSPLANT Arrhy During Ex (test code = 6413762426) ECG Interp Before EX (test code = 5995017653) ECG Interp During Ex (test code = 7217729007) Ex Summary Comment (test code = 5026757244) Overall HR Response to Exercise (test code = 8155323298) Overall BP Response To Exercise (test code = 2166044493) Reason for Termination (test code = 2622908510) Protocol Complete Stress Test Impression (test code = 5722143095) Wavefo rm interpreted in report associated with image study. No interpretation is provided as part of this Stress ECG report.--Electronically Signed By Uziel IGLESIAS, José Luis Leonardo ([id number]), food expeditor Summer Lau ([id number]) on 03/28/2020 4:40:03 AM Luis Enrique MaryECG 12 [id number] 17:27:26* Test Item Value Reference Range Interpretation Comments Ventricular rate (test code = 253) 66 Atrial rate (test code = 255) 66 KS interval (test code = 266) 178 QRSD interval (test code = 260) 68 QT interval (test code = 264) 412 QTC interval (test code = 265) 431 P axis 1 (test code = 267) 53 QRS axis 1 (test code = 268) 56 T wave axis (test code = 270) 54 EKG impression (test code = 273) Normal sinus rhythm-E lectronically Signed By Henry Hill MD ([id number]) on 03/27/2020 5:27:25 PM [place] MethodistBone marrow oaqp2911-14-61 12:20:39* Test Item Value Reference Range Interpretation Comments Bone marrow tray (test code = 989) Done [place] MethodistImmunoglobulin [id number] 11:53:09* Test Item Value Reference Range Interpretation Comments IgG (test code = 2465-3) 509 mg/dL 700-1600 L Lab Interpretation (test code = 92433-8) Abnormal [place] MethodistImmunoglobulin [id number] 11:53:09* Test Item Value Reference Range Interpretation Comments IgM (test code = 2472-9) <25 33-255 L Lab Interpretation (test code = 24015-0) Abnormal [place] MethodistImmunoglobulin O8531-73-17 11:53:09* Test Item Value Reference Range Interpretation Comments IgA (test code = 2458-8) <50 70-400 L Lab Interpretation (test code = 27506-1) Abnormal [place] MethodistToxoplasma gondii antibody, [id number] 11:46:13* Test Item Value Reference Range Interpretation Comments Toxoplasma gondii Ab, IgG (test code = 5388-4) <3 0- 9 IU /mL Equal or less than 9 IU/mL Negative; No previous T. gonii infection [place] MethodistEpstein-Bernard virus antibody bjvs8025-78-43 11:45:39* Test Item Value Reference Range Interpretation Comments EBV Ab to viral capsid Ag, IgG (test code = 07663-1) Positive N egative A EBV Ab to viral capsid Ag, IgM (test code = 15717-2) Negative N egative EBV Ab to nuclear Ag, IgG (test code = 7883-2) Positive Negativ e A EBV Ab to early (D) Ag, IgG (test code = 28534-7) Negative Nega tive [place]-Bernard virus antibody interpretation (test code = 5466) SEE C OMMENT Infection Status: Results may suggest past EBV infection. Lab Interpretation (test code = 89217-2) Abnormal [place] MethodistFerritin dfxzk5867-86-36 11:44:07* Test Item Value Reference Range Interpretation Comments Ferritin level (test code = 2276-4) 1817 ng/mL 13-150 H Lab Interpretation (test code = 61595-3) Abnormal [place] MethodistSickle cell plilns9259-09-71 11:38:18* Test Item Value Reference Range Interpretation Comments Sickle cells (test code = 6864-3) Negative This is a screening test. If positive, confirmation by adefinitive method such as Hemoglobin Electrophoresis isrecommended if clinically indicated. Smear review, sickle cell screen (test code = 30221-8) Smear Review ed [place] MethodisthCG quantitative, yvflr9470-53-35 11:23:56* Test Item Value Reference Range Interpretation Comments hCG quantitative, serum (test code = 96264-8) <1 0- 5 mIU /mL Reference range for HCG Quant applies to males and non-females.Post Menopausal 0.0 - 8.1 mIU/mL [place] MethodistType and kpfnxl8581-12-71 11:16:00* Test Item Value Reference Range Interpretation Comments ABO grouping (test code = 883-9) O Rh type (test code = 05810-0) POS Antibody screen (gel) (test code = 890-4) NEG [place] MethodistB natriuretic yzgodxs9621-15-87 11:07:57* Test Item Value Reference Range Interpretation Comments BNP (test code = 07083-0) 28 pg/mL 0-100 [place] JanelleistComprehensive metabolic zyidr1635-94-14 11:07:23* Test Item Value Reference Range Interpretation Comments Sodium (test code = 2951-2) 143 135- 148 mEq/L Potassium (test code = 2823-3) 3.7 3.5- 5.0 mEq/L Chloride (test code = 2075-0) 104 98- 112 mEq/L CO2 (test code = 2027-9) 25 24- 31 mEq/L Anion gap (test code = 37003-2) 14@ANIO 7- 15 mEq/L BUN (test code = 3094-0) 18 mg/dL 8-23 Creatinine (test code = 2160-0) 0.69 mg/dL 0.5-0.9 Glucose (test code = 2345-7) 83 mg/dL 65-99 Calcium (test code = 10387-4) 9.6 mg/dL 8.8-10.2 Protein (test code = 2885-2) 6.7 g/dL 6.3-8.3 -[place] 4.6- 7.0 g/dL1 week 4.4-7.6 g/dL7 months-1year 5.1-7.3 g/dL1-2 years 5.6-7.5 g/dL>3 years 6.0-8.0 g/lB61-592 6.3-8.3 g/dL Albumin (test code = 1751-7) 4.0 g/dL 3.5-5 A/G ratio (test code = 1759-0) 1.5 0.7-3.8 Alkaline phosphatase (test code = 6768-6) 84 U/L 35-104 AST (test code = 1920-8) 30 U/L 10-35 ALT (test code = 1742-6) 25 U/L 5-50 Total bilirubin (test code = 1975-2) 0.5 mg/dL 0-1.2 [place] WwxytemckDHZ2766-33-51 11:07:23* Test Item Value Reference Range Interpretation Comments LDH (test code = 42077-4) 301 U/L 87-225 H Lab Interpretation (test code = 23797-6) Abnormal [place] MethodistMagnesium nslbg5133-39-34 11:07:23* Test Item Value Reference Range Interpretation Comments Magnesium (test code = 54539-7) 2.1 mg/dL 1.6-2.4 [place] MethodistUric acid gphze1832-41-25 11:07:23* Test Item Value Reference Range Interpretation Comments Uric acid (test code = 3084-1) 3.8 mg/dL 2.4-5.7 [place] MethodistEstimated EOE3653-77-82 11:07:21* Test Item Value Reference Range Interpretation Comments Estimated GFR (test code = 5488) >=90 mL/min/1.73 m2 Catergory Units InterpretationG1 >=90 Normal or highG2 60-89 Mildly bdrsiklsuH4v 45-59 Mildly to moderately ywxgfirstO5q 30-44 Moderately to severely decreasedG4 15-29 Severely decreasedG5 <15 Kidney failureThe eGFR was calculated using the Chronic Kidney Disease Epidemiology Collaboration (CKD-EPI) equation. Interpretation is based on recommendations of the National Kidney Foundation-Kidney Disease Outcomes Quality Initiative (NKF-KDOQI) published in 2014. [place] MethodistPhosphorus qdaic4322-70-81 11:07:16* Test Item Value Reference Range Interpretation Comments Phosphorus (test code = 2777-1) 3.7 mg/dL 2.4-4.5 [place] MethodistTotal iron binding kmfhnyrd6102-89-50 11:02:06* Test Item Value Reference Range Interpretation Comments Iron level (test code = 2498-4) 60 ug/dL 37-145 Iron binding capacity (test code = 2500-7) 228 ug/dL 200-400 % Saturation (test code = 2502-3) 26.3 % 15-38 [place] MethodistUrinalysis screen and microscopy, with reflex to culture 2020-03-27 10:54:57* Test Item Value Reference Range Interpretation Comments Specimen site (test code = 8616135) Clean catch Color, UA (test code = 5778-6) Yellow Appearance, UA (test code = 5767-9) Clear Specific gravity, UA (test code = 5811-5) 1.006 1.001-1.035 pH, UA (test code = 5803-2) 6.0 5.0-8.5 Protein, UA (test code = 29715-5) Negative Negative Glucose, UA (test code = 12676-1) Negative Negative Ketones, UA (test code = 2514-8) Negative Negative Bilirubin, UA (test code = 5770-3) Negative Negative Blood, UA (test code = 5794-3) Negative Negative Nitrite, UA (test code = 5802-4) Negative Negative Urobilinogen, UA (test code = 72677-5) <2.0 <2.0 Leukocyte esterase, UA (test code = 5799-2) Negative Negative WBC, UA (test code = 5821-4) None seen 0- 4 /HPF RBC, UA (test code = 75246-8) <1 0- 5 /HPF Bacteria, UA (test code = 88316-5) None seen None seen Yeast, UA (test code = 21674-0) None seen Yeast with pseudohyphae, UA (test code = 25929-9) None seen [facility] Enrique MethodistUrine mslcjvi8933-07-75 10:49:49* Test Item Value Reference Range Interpretation Comments Urine culture (test code = 1721538) SEE COMMENT Bacteriuria screen negative. Luis Enrique MethodistPartial thromboplastin time, aootechse9745-34-56 10:35:31* Test Item Value Reference Range Interpretation Comments PTT (test code = 39869-9) 28.3 23.0- 36.0 sec PTT therapeutic range for unfractionated heparin is61.0-112.0 seconds which corresponds to Anti-Xa0.3-0.7 U/ml. Luis Enrique MethodistProthrombin time with TYO6543-81-98 10:34:50* Test Item Value Reference Range Interpretation Comments Prothrombin time (test code = 5902-2) 13.8 11.5- 14.5 sec INR (test code = 92368-1) 1.0 Th e International Normalized Ratio (INR) is a therapeutic monitoring tool for patients who are stable on oral anticoagulant therapy. An INR of 2.0-3.0 is suggested for deep vein thrombosis/pulmonary embolism. [facility] MethodistCBC with platelet and ywjshxanfrqh8618-91-30 10:18:32* Test Item Value Reference Range Interpretation Comments WBC (test code = 06805-0) 2.87 4.50- 11.00 k/uL L RBC (test code = 76534-1) 2.92 m/uL 4.2-5.5 L HGB (test code = 718-7) 10.6 g/dL 12-16 L HCT (test code = 4544-3) 32.2 % 37-47 L MCV (test code = 787-2) 110.3 fL 82-100 H MCH (test code = 785-6) 36.3 pg 27-34 H MCHC (test code = 786-4) 32.9 g/dL 31-37 RDW - SD (test code = 99108-1) 76.2 fL 37-55 H MPV (test code = 49144-3) 10.4 fL 8.8-13.2 Platelet count (test code = 51078-9) 74 150- 400 k/uL L Neutrophils (test code = 81335-6) 57.3 % 39-69 Lymphocytes (test code = 81514-7) 14.6 % 25-45 L Monocytes (test code = 26524-9) 26.8 % 0-10 H Eosinophils (test code = 24195-0) 1.0 % 0-5 Basophils (test code = 82566-1) 0.3 % 0-1 Lab Interpretation (test code = 05093-7) Abnormal [place] MethodistSmear rcyoeg9438-13-13 10:18:32* Test Item Value Reference Range Interpretation Comments Platelet slide review (test code = 58704-9) Decreased A Anisocytosis (test code = 702-1) Moderate Polychromasia (test code = 83337-5) Moderate Tear drop cells (test code = 7791-7) Occasional Schistocytes (test code = 800-3) Occasional Spherocytes (test code = 802-9) Occasional Ovalocytes (test code = 774-0) Moderate Lab Interpretation (test code = 04130-3) Abnormal [facility] myocardial fqwngnbmo3487-13-31 09:53:00Interface, Radiology Results In - 03/27/2020 9:54 AM CDT [facility] Heart & Vascular Nuclear Cardiology Department [address] [place] [address] Myocardial Perfusion Imaging Report Pat.Name: TIMOTHY DALY Pat.ID: [id number] .Date: 03/25/2020 Refer.MD: PATO OLEA MD Exam Time: 9:29:00 AM Study Type:Myocardial Perfusion ImagingHeight: 59in Weight: 140lb BSA: 1.59 m2 Age: 8 1960,60Y Sex: FEMALE BP: 146/75 HR: 82 bpm Nuclear Tech:BRIANA Gilman, ARRT/Mello SHEIKHILPat. Stat.:Outpatient Tape Vol: 28.28, Nuclear Event ID:[id number] Order ID: [id number] Reason for Study:Pre-Op Clearace for BMTHistory / Clinical:AML, GI Bleed, PancytopeniaProcedures: Single Day Stress / Rest Single-Photon Emission ComputedTomographyRisk Factors:None Clinical Symptoms:Regadenoson 0.4 mg administered intravenously over10 secondsPhysical Exam:S1, S2 Surgery: Outpatient SUMMARY: SCINTIGRAPHIC RESULTSPerfusion Defect Size (% LV) 0 % Total 0 % Ischem ia 0 % ScarLeft Ventricular Perfusion ResultsThere is normal tracer distribution during stress and rest. Gated SPECT ResultsThe post-stress left ventricular eje ction fraction is 75 % with normalregional wall motion and left ventricular thic kening. Leftventricular end-diastolic volume is 55 ml; end-systolic volume is 14ml. The left ventricle is of normal size at stress and at rest. Theright vent ricle is of normal size with normal wall motion. ConclusionNormal regadenoson T c-99m tetrofosmin myocardial perfusion study. Theleft ventricular ejection frac tion is normal. CT Findings:There appear to be no coronary artery calcification s present. Theascending and descending aorta are normal in size. There is nosig nificant pericardial effusion. Limited lung nash show nosignificant abnormalit ies.CommentsPatients with a normal stress myocardial perfusion study have a low (<1%) annual risk of cardiac or nonfatal myocardial infarction. Study Quality/ArtifactsThe study quality is fair. The mild reduction in apical andanteroapical wall counts is probably due to marked breast attenuationartifact rather than coronary artery disease which resolves with proneimaging and CT correction. Comparison to Previous StudyNone available. --FINDINGS: ---STRESS: Baseline Vital Signs: Intervention Regadenoson 0.4mg/5mlIV over 10 seconds followed by radiotracer i njection and 5ml salineflushBaseline EKG Normal Sinus Rhythm Resting HR: 82 Atropine Administered: 0Resting BP: 146/75 Str ess Test Results:Target HR: 135 Symptoms and Complications:S tress-induced Arrhythmias NoneReason for Stopping Test: As per Regadenoson tk colSymptoms During Test Dizziness, GI discomfort, Shortness of breathComplicatio ns NoneOther: Normal heart rate response to pharmacological stress,Normal bl ood pressure response to pharmacological stressECG / Stress Interpretation: No i schemic ST segment change occurredwith stress.Signed 03/27/2020 09:53 Maximilian Fuentes MethodistFungus culture, blood (Isolator)2020-03-20 13:45:00* Test Item Value Reference Range Interpretation Comments Result (test code = 6463-4) No fungus isolated KO (test code = KO) [facility]aFUNGUS [facility], BLOOD (ISOLATOR)2020-03-20 13:45:00 * Test Item Value Reference Range Interpretation Comments CULTURE (BEAKER) (test code = 1095) No fungus isolated XR Chest 2 Rm1950-56-71 14:35:03Hm Interface, Radiology Results 03/18/2020 2:38 PM CDTEXAMINATION: XR CHEST 2 VWCLINICAL HISTORY: 60 years Female 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, Z01.818 Encounter for other preprocedural examination, pre-transplant testing AMLCOMPARISON: 08/20/2019IMPRESSION:There is subtle area of parenchymal density overlying [...] with its tip in the brachiocephalic SVC junction.[id number] Enrique MethodistSpirometry, diffusion, lung volumes 2020-03-18 13:20:01* Test Item Value Reference Range Interpretation Comments FEV1 Pre (test code = 5348) 2.49 L 1.51-2.47 FEV1/FVC % Pre (test code = 5361) 88.4 % 68.05-87.64 FVC Pre (test code = 5354) 2.82 L 2.01-3.15 PEF Pre (test code = 5367) 4.79 L/s 3.95-6.76 FEF 25-75% Pre (test code = 5547) 3.49 L/s 0.96-2.99 DLCO Pre (test code = 5423) 9.6 12.56- 25.56 ml/(min*mmHg) DL/VA Pre (test code = 5437) 2.48 3.39- 6.02 ml/(min*mmHg*L ) VA SB Pre (test code = 5444) 3.87 L 2.98-5.18 DLCOc Pre (test code = 5430) 11.67 12.56- 25.56 ml/(min*mmHg ) KCOc SB Pre (test code = 5535) 3.02 3.39- 6.02 ml/(min*mmHg *L) Hb Pre (test code = 5540) 8.8 g(Hb)/dL FRCpl Pre (test code = 5388) 1.89 L 1.54-3.18 RV Pre (test code = 5402) 0.8 L 1.07-2.22 TLC Pre (test code = 5416) 3.67 L 2.95-4.92 RV % TLC Pre (test code = 5409) 21.69 % 30.11-49.29 VC Pre (test code = 5374) 2.88 L 2.01-3.15 ERV Pre (test code = 5381) 1.1 L 0.72-0.72 IC Pre (test code = 5395) 1.78 L 1.4-1.4 Raw Pre (test code = 5507) 0.41 3.06- 3.06 cmH2O*s/L sGaw Predicted (test code = 5528) 1.08 0.10- 0.10 1/(cmH2O* s) FEV1 Predicted (test code = 5302) 1.99 FEV1 LLN (test code = 5347) 1.51 FEV1 % Pre of Predicted (test code = 5308) 125.4 % FVC Predicted (test code = 5307) 2.58 FVC LLN (test code = 5353) 2.01 FVC % Pre of Predicted (test code = 5355) 109.3 % FEV1/FVC % Predicted (test code = 5359) 78 FEV1/FVC % LLN (test code = 5360) 68 FEV1/FVC % Pre of Predicted (test code = 5362) 113.6 % FEF 25-75% Predicted (test code = 5546) 1.98 FEF 25-75% LLN (test code = 5545) 0.96 FEF 25-75% % Pre of Predicted (test code = 5548) 176.4 % PEF Predicted (test code = 5310) 5.36 PEF LLN (test code = 5366) 3.95 PEF % Pre of Predicted (test code = 5368) 89.5 % VC Predicted (test code = 5372) 2.58 VC LLN (test code = 5373) 2.01 VC % Pre of Predicted (test code = 5375) 111.5 % ERV Predicted (test code = 5379) 0.72 ERV LLN (test code = 5380) 0.72 ERV % Pre of Predicted (test code = 5382) 152.7 % FRCpl % Predicted (test code = 5386) 2.36 FRCpl % LLN (test code = 5387) 1.54 FRCpl % Pre of Predicted (test code = 5389) 80.2 % IC Predicted (test code = 5393) 1.4 IC LLN (test code = 5394) 1.4 IC % Pre of Predicted (test code = 5396) 126.8 % RV Predicted (test code = 5400) 1.64 RV LLN (test code = 5401) 1.07 RV % Pre of Predicted (test code = 5403) 48.5 % RV % TLC Predicted (test code = 5407) 40 RV % TLC LLN (test code = 5408) 30 RV % TLC % Pre of Predicted (test code = 5410) 54.6 % TLC Predicted (test code = 5414) 3.93 TLC LLN (test code = 5415) 2.95 TLC % Pre of Predicted (test code = 5417) 93.3 % Raw Predicted (test code = 5505) 3.06 Raw LLN (test code = 5506) 3.06 Raw % Pre of Predicted (test code = 5508) 13.5 % sGaw Predicted (test code = 5526) 0.1 sGaw LLN (test code = 5527) 0.1 sGaw % Pre of Predicted (test code = 5529) 1059.2 % DLCO Predicted (test code = 5421) 19.06 DLCO LLN (test code = 5422) 12.56 DLCO % Pre of Predicted (test code = 5424) 50.4 % DLCOc Predicted (test code = 5428) 19.06 DLCOc LLN (test code = 5429) 12.56 DLCOc % Pre of Predicted (test code = 5431) 61.2 % DL/VA Predicted (test code = 5435) 4.71 DL/VA LLN (test code = 5436) 3.39 DL/VA % Pre of Predicted (test code = 5438) 52.7 % [facility]CO[facility] SB Predicted (test code = 5533) 4.71 KCOc SB LLN (test code = 5534) 3.39 KCOc SB % Pre of Predicted (test code = 5536) 64.1 % VA SB Predicted (test code = 5442) 4.08 VA SB LLN (test code = 5443) 2.98 VA SB % Pre of Predicted (test code = 5445) 94.9 % [facility] [id number] 13:17:00* Test Item Value Reference Range Interpretation Comments Voriconazole, Quantitation by LC-MS/MS (test code = 43543-5) 1.0 1- 6 g/mL REFERENCE INTERVAL -Therapeutic Range (trough): 1.0-6.0 g/mL Toxic Level: Greater than 6.0 g/mL INTERPRETIVE DATA -Toxic concentrations may cause nausea, vomiting, peripheral edema and elevated serum liver enzymes. [email or web address] Compliance Statement B:This test was developed and its performance characteristics determined by [employer]. The U.S. Food and Drug Administration has not approved or cleared this test; however, FDA clearance or approval is not currently required for clinical use. The results are not intended to be used as the sole means for clinical diagnosis or patient management decisions. Lab Interpretation (test code = 44828-2) [facility]OR[facility] [id number] 13:17:00* Test Item Value Reference Range Interpretation Comments VORICONAZOLE LEVEL (BEAKER) (test code = 2807) 1.0 g/mL 1-6 REFERENCE INTERVAL -Therapeutic Range (trough):1.0-6.0 g/mL Toxic Level:Greater than 6.0 g/mL INTERPRETIVE DATA -Toxic concentrations may cause nausea, vomiting, peripheral edema and elevated serum liver enzymes. [email or web address] Compliance Statement B:This test was developed and its performance characteristics determined by [employer]. The U.S. Food and Drug Administration has not approved or cleared this test; however, FDA clearance or approval is not currently required for clinical use. The results are not intended to be used as the sole means for clinical diagnosis or patient management decisions. BLOOD [id number] 09:57:00* Test Item Value Reference Range Interpretation Comments CULTURE (BEAKER) (test code = 1095) A From Aerobic Bottle Only Coagulase negative Staphylococcus GRAM STAIN RESULT (BEAKER) (test code = 1123) From aer obic bottle only: gram positive cocci in clusters BLOOD [id number] 17:00:00* Test Item Value Reference Range Interpretation Comments CULTURE (BEAKER) (test code = 1095) No growth in 5 days Aspergillus galactomannan [id number] 07:57:00* Test Item Value Reference Range Interpretation Comments Aspergillus Index Value (test code = 2645) <0.50 Aspergillus Antigen (test code = 26946-3) NOT DETECTED REFERENCE RANGE: <0.50, NOT DETECTED A negative result does not exclude invasiveaspergillosis. Follow-up testing may be indicatedfor high-risk patients. KO (test code = KO) Performing Lab *[facility] [address] [place] [address] Fly Calle [facility]ung[facility]ell2020-10-14 12:46:00* Test Item Value Reference Range Interpretation Comments Scan Result (test code = 9850217) <31 [facility] [id number] 12:46:00* Test Item Value Reference Range Interpretation Comments SCAN RESULT (test code = 9093371) <31 CBC W/PLT COUNT & AUTO [id number] 10:25:00* Test Item Value Reference Range Interpretation Comments WHITE BLOOD CELL COUNT (BEAKER) (test code = 775) 8.0 K/ L 3.5- 10.5 RED BLOOD CELL COUNT (BEAKER) (test code = 761) 2.17 M/ L 3.93-5 .22 L HEMOGLOBIN (BEAKER) (test code = 410) 7.4 GM/DL 11.2-15.7 L HEMATOCRIT (BEAKER) (test code = 411) 21.6 % 34.1-44.9 L MEAN CORPUSCULAR VOLUME (BEAKER) (test code = 753) 99.5 fL 79. 4-94.8 H MEAN CORPUSCULAR HEMOGLOBIN (BEAKER) (test code = 751) 34.1 pg 25.6-32.2 H MEAN CORPUSCULAR HEMOGLOBIN CONC (BEAKER) (test code = 752) 34.3 GM/DL 32.2-35.5 RED CELL DISTRIBUTION WIDTH (BEAKER) (test code = 412) 15.1 % 11.7-14.4 H PLATELET COUNT (BEAKER) (test code = 756) 47 K/CU MM 150-450 L Discordant plt result compared to previous result, clinical correlation required MEAN PLATELET VOLUME (BEAKER) (test code = 754) 11.3 fL 9.4-12 .3 NUCLEATED RED BLOOD CELLS (BEAKER) (test code = 413) 0 /100 WBC 0 -0 (CELLAVISION MANUAL DIFF)2020-03-12 10:25:00* Test Item Value Reference Range Interpretation Comments NEUTROPHILS - REL (CELLAVISION)(BEAKER) (test code = 2816) 75 % LYMPHOCYTES - REL (CELLAVISION)(BEAKER) (test code = 2817) 4 % MONOCYTES - REL (CELLAVISION)(BEAKER) (test code = 2818) 16 % METAMYELOCYTES - REL (CELLAVISION)(BEAKER) (test code = 2821) 1 % 0-0 H BANDS - REL (CELLAVISION)(BEAKER) (test code = 2826) 4 % 0 -10 NEUTROPHILS - ABS (CELLAVISION)(BEAKER) (test code = 2830) 6.00 K/ul 1.56-6.13 LYMPHOCYTES - ABS (CELLAVISION)(BEAKER) (test code = 2831) 0.32 K/ul 1.18-3.74 L MONOCYTES - ABS (CELLAVISION)(BEAKER) (test code = 2832) 1.28 K/uL 0.24-0.36 H METAMYELOCYTES - ABS (CELLAVISION)(BEAKER) (test code = 2836 ) 0.08 K/uL 0.00-0.00 H BANDS - ABS (CELLAVISION)(BEAKER) (test code = 2840) 0.32 K/uL 0 .00-0.80 TOTAL COUNTED (BEAKER) (test code = 1351) 100 MANUAL NRBC PER 100 CELLS (BEAKER) (test code = 1353) 2 /100 WBC 0-0 H PLT MORPHOLOGY (BEAKER) (test code = 486) Normal SMUDGE CELLS (BEAKER) (test code = 1371) Present POLYCHROMATOPHILLIC RBCS(BEAKER) (test code = 478) 2+ moderate ANISOCYTOSIS (BEAKER) (test code = 961) 2+ moderate MICROCYTES (BEAKER) (test code = 965) 2+ moderate POIKILOCYTES (BEAKER) (test code = 966) 1+ few PLATELET CONCENTRATION (CELLAVISION)(BEAKER) (test code = 3438) Dec reased Compotype Operator ID - [id number] ID - Quiles Jonahr comments: Slide comments: BASIC METABOLIC [id number] 05:45:00* Test Item Value Reference Range Interpretation Comments SODIUM (BEAKER) (test code = 381) 144 meq/L 136-145 POTASSIUM (BEAKER) (test code = 379) 4.0 meq/L 3.5-5.1 CHLORIDE (BEAKER) (test code = 382) 110 meq/L 98-107 H CO2 (BEAKER) (test code = 355) 25 meq/L 22-29 BLOOD UREA NITROGEN (BEAKER) (test code = 354) 12 mg/dL 7-21 CREATININE (BEAKER) (test code = 358) 0.65 mg/dL 0.57-1.25 GLUCOSE RANDOM (BEAKER) (test code = 652) 93 mg/dL 70-105 CALCIUM (BEAKER) (test code = 697) 8.8 mg/dL 8.4-10.2 EGFR (BEAKER) (test code = 1092) 93 mL/min/1.73 sq m ESTIMATED GFR IS NOT ACCURATE CREATININE CLEARANCE IN PREDICTING GLOMERULAR FILTRATION RATE. ESTIMATED GFR IS NOT APPLICABLE FOR DIALYSIS PATIENTS. Compotype Operator ID - CONSUELO MCBC W/PLT COUNT & AUTO [id number] 13:25:00* Test Item Value Reference Range Interpretation Comments WHITE BLOOD CELL COUNT (BEAKER) (test code = 775) 7.9 K/ L 3.5- 10.5 RED BLOOD CELL COUNT (BEAKER) (test code = 761) 2.16 M/ L 3.93-5 .22 L HEMOGLOBIN (BEAKER) (test code = 410) 7.2 GM/DL 11.2-15.7 L HEMATOCRIT (BEAKER) (test code = 411) 21.4 % 34.1-44.9 L MEAN CORPUSCULAR VOLUME (BEAKER) (test code = 753) 99.1 fL 79. 4-94.8 H MEAN CORPUSCULAR HEMOGLOBIN (BEAKER) (test code = 751) 33.3 pg 25.6-32.2 H MEAN CORPUSCULAR HEMOGLOBIN CONC (BEAKER) (test code = 752) 33.6 GM/DL 32.2-35.5 RED CELL DISTRIBUTION WIDTH (BEAKER) (test code = 412) 15.3 % 11.7-14.4 H PLATELET COUNT (BEAKER) (test code = 756) 2 K/CU MM 150-450 LL MEAN PLATELET VOLUME (BEAKER) (test code = 754) Unable to report due to abnormal Platelet population distribution. NUCLEATED RED BLOOD CELLS (BEAKER) (test code = 413) 0 /100 WBC 0 -0 (CELLAVISION MANUAL DIFF)2020-03-11 13:25:00* Test Item Value Reference Range Interpretation Comments NEUTROPHILS - REL (CELLAVISION)(BEAKER) (test code = 2816) 66 % LYMPHOCYTES - REL (CELLAVISION)(BEAKER) (test code = 2817) 1 % MONOCYTES - REL (CELLAVISION)(BEAKER) (test code = 2818) 29 % METAMYELOCYTES - REL (CELLAVISION)(BEAKER) (test code = 2821) 1 % 0-0 H BANDS - REL (CELLAVISION)(BEAKER) (test code = 2826) 3 % 0 -10 NEUTROPHILS - ABS (CELLAVISION)(BEAKER) (test code = 2830) 5.21 K/ul 1.56-6.13 LYMPHOCYTES - ABS (CELLAVISION)(BEAKER) (test code = 2831) 0.08 K/ul 1.18-3.74 L MONOCYTES - ABS (CELLAVISION)(BEAKER) (test code = 2832) 2.29 K/uL 0.24-0.36 H METAMYELOCYTES - ABS (CELLAVISION)(BEAKER) (test code = 2836 ) 0.08 K/uL 0.00-0.00 H BANDS - ABS (CELLAVISION)(BEAKER) (test code = 2840) 0.24 K/uL 0 .00-0.80 TOTAL COUNTED (BEAKER) (test code = 1351) 100 PLT MORPHOLOGY (BEAKER) (test code = 486) Normal DOHLE BODIES (BEAKER) (test code = 359) Present HYPOCHROMIA (BEAKER) (test code = 963) 2+ moderate ANISOCYTOSIS (BEAKER) (test code = 961) 1+ few MICROCYTES (BEAKER) (test code = 965) 1+ few POIKILOCYTES (BEAKER) (test code = 966) 1+ few SPHEROCYTES (BEAKER) (test code = 768) 2+ moderate ELLIPTOCYTES (BEAKER) (test code = 962) 2+ moderate OVALOCYTES (BEAKER) (test code = 477) 2+ moderate TEAR DROP CELLS (BEAKER) (test code = 481) 1+ few ARTIFACT (CELLAVISION)(BEAKER) (test code = 3432) Present PLATELET CONCENTRATION (CELLAVISION)(BEAKER) (test code = 3438) Dec reased Compotype Operator ID - [id number] ID - Aixa García comments: Slide comments: BASIC METABOLIC [id number] 06:46:00* Test Item Value Reference Range Interpretation Comments SODIUM (BEAKER) (test code = 381) 142 meq/L 136-145 POTASSIUM (BEAKER) (test code = 379) 3.3 meq/L 3.5-5.1 L CHLORIDE (BEAKER) (test code = 382) 110 meq/L 98-107 H CO2 (BEAKER) (test code = 355) 21 meq/L 22-29 L BLOOD UREA NITROGEN (BEAKER) (test code = 354) 11 mg/dL 7-21 CREATININE (BEAKER) (test code = 358) 0.70 mg/dL 0.57-1.25 GLUCOSE RANDOM (BEAKER) (test code = 652) 135 mg/dL 70-105 H CALCIUM (BEAKER) (test code = 697) 8.5 mg/dL 8.4-10.2 EGFR (BEAKER) (test code = 1092) 85 mL/min/1.73 sq m ESTIMATED GFR IS NOT ACCURATE CREATININE CLEARANCE IN PREDICTING GLOMERULAR FILTRATION RATE. ESTIMATED GFR IS NOT APPLICABLE FOR DIALYSIS PATIENTS. Compotype Operator ID - EDASIPrepare [id number] 23:54:00* Test Item Value Reference Range Interpretation Comments Unit ABO (test code = 0746401) O Pos UNIT NUMBER (test code = 934-0) [id number] Status (test code = 5863235) READY Blood Bank Product (test code = 2263) RED BLOOD CELLS PRODUCT CODE (test code = 933-2) [id number] CROSSMATCH (test code = 2264) [facility], [id number] 21:42:00* Test Item Value Reference Range Interpretation Comments Vancomycin Tr (test code = 4092-3) 11.9 ug/mL 10-20 KO (test code = KO) Compotype Operator ID - DB Lab Interpretation (test code = 53190-0) Normal [facility]CIN LEVEL, [id number] 21:42:00* Test Item Value Reference Range Interpretation Comments VANCOMYCIN TROUGH (BEAKER) (test code = 522) 11.9 ug/mL 10.0-20.0 Compotype Operator ID - DB(CELLAVISION MANUAL DIFF)2020-03-10 12:37:00* Test Item Value Reference Range Interpretation Comments NEUTROPHILS - REL (CELLAVISION)(BEAKER) (test code = 2816) 57 % LYMPHOCYTES - REL (CELLAVISION)(BEAKER) (test code = 2817) 7 % MONOCYTES - REL (CELLAVISION)(BEAKER) (test code = 2818) 35 % EOSINOPHILS - REL (CELLAVISION)(BEAKER) (test code = 2819) 1 % NEUTROPHILS - ABS (CELLAVISION)(BEAKER) (test code = 2830) 1.82 K/ul 1.56-6.13 LYMPHOCYTES - ABS (CELLAVISION)(BEAKER) (test code = 2831) 0.22 K/ul 1.18-3.74 L MONOCYTES - ABS (CELLAVISION)(BEAKER) (test code = 2832) 1.12 K/uL 0.24-0.36 H EOSINOPHILS - ABS (CELLAVISION)(BEAKER) (test code = 2834) 0.03 K/uL 0.04-0.36 L TOTAL COUNTED (BEAKER) (test code = 1351) 100 WBC MORPHOLOGY (BEAKER) (test code = 487) Normal PLT MORPHOLOGY (BEAKER) (test code = 486) Normal ANISOCYTOSIS (BEAKER) (test code = 961) 1+ few MICROCYTES (BEAKER) (test code = 965) 1+ few POIKILOCYTES (BEAKER) (test code = 966) 1+ few OVALOCYTES (BEAKER) (test code = 477) 1+ few TEAR DROP CELLS (BEAKER) (test code = 481) 1+ few ARTIFACT (CELLAVISION)(BEAKER) (test code = 3432) Present PLATELET CONCENTRATION (CELLAVISION)(BEAKER) (test code = 3438) Dec reased Compotype Operator ID - [id number] ID - Hari EscobarUser comments: Slide comments: CBC W/PLT COUNT & AUTO [id number] 12:36:00* Test Item Value Reference Range Interpretation Comments WHITE BLOOD CELL COUNT (BEAKER) (test code = 775) 3.2 K/ L 3.5- 10.5 L RED BLOOD CELL COUNT (BEAKER) (test code = 761) 2.21 M/ L 3.93-5 .22 L HEMOGLOBIN (BEAKER) (test code = 410) 7.6 GM/DL 11.2-15.7 L HEMATOCRIT (BEAKER) (test code = 411) 21.8 % 34.1-44.9 L MEAN CORPUSCULAR VOLUME (BEAKER) (test code = 753) 98.6 fL 79. 4-94.8 H MEAN CORPUSCULAR HEMOGLOBIN (BEAKER) (test code = 751) 34.4 pg 25.6-32.2 H MEAN CORPUSCULAR HEMOGLOBIN CONC (BEAKER) (test code = 752) 34.9 GM/DL 32.2-35.5 RED CELL DISTRIBUTION WIDTH (BEAKER) (test code = 412) 15.5 % 11.7-14.4 H PLATELET COUNT (BEAKER) (test code = 756) 11 K/CU MM 150-450 L MEAN PLATELET VOLUME (BEAKER) (test code = 754) Unable to report due to abnormal Platelet population distribution. NUCLEATED RED BLOOD CELLS (BEAKER) (test code = 413) 0 /100 WBC 0 -0 BASIC METABOLIC [id number] 05:44:00* Test Item Value Reference Range Interpretation Comments SODIUM (BEAKER) (test code = 381) 142 meq/L 136-145 POTASSIUM (BEAKER) (test code = 379) 3.7 meq/L 3.5-5.1 CHLORIDE (BEAKER) (test code = 382) 111 meq/L 98-107 H CO2 (BEAKER) (test code = 355) 22 meq/L 22-29 BLOOD UREA NITROGEN (BEAKER) (test code = 354) 10 mg/dL 7-21 CREATININE (BEAKER) (test code = 358) 0.65 mg/dL 0.57-1.25 GLUCOSE RANDOM (BEAKER) (test code = 652) 89 mg/dL 70-105 CALCIUM (BEAKER) (test code = 697) 8.6 mg/dL 8.4-10.2 EGFR (BEAKER) (test code = 1092) 93 mL/min/1.73 sq m ESTIMATED GFR IS NOT ACCURATE CREATININE CLEARANCE IN PREDICTING GLOMERULAR FILTRATION RATE. ESTIMATED GFR IS NOT APPLICABLE FOR DIALYSIS PATIENTS. Compotype Operator ID - CONSUELO MCT, MAXILLOFACIAL AREA, [id number] 04:12:00Unlisted Reason for Exam - Click Yes and Enter Reason Below->YesUnlisted Reason for Exam- >neutropenic patient with sinus painFINAL REPORT EXAM: CT maxillofacial CT with contrast [...] sinus mucosal disease as described. Signed: Keven Tomas MDReport Verified Date/Time: 03/10/2020 04:12:39 maxillofacial with IV [id number] 04:12:00Interface, External Ris In - 03/10/2020 4:14 AM CDTFINAL REPORT EXAM: CT maxillofacial CT with contrast [...] The paranasal sinuses are well-developed. The right fr ontal sinus is smaller than the left. The sino-orbital and sino-cranial junction s are intact. There is mild mucosal thickening of the bilateral ethmoid sinuses, sphenoid and maxillary sinuses. There is a small polyp or retention cyst in the left ethmoid sinus. The bilateral sphenoethmoidal recesses are effaced by mucos al disease. The bilateral ostiomeatal units are patent. There are no paranasal sinus air-fluid levels. The nasal cavity and nasopharynx are unremarkable. Ther e is no abnormal enhancement. The vessels enhance normally. The orbits and visu alized intracranial compartment is unremarkable. The mastoid air cells are clear . IMPRESSION: Paranasal sinus mucosal disease as described. Signed: Tyrese Tomas MDReport Verified Date/Time: 03/10/2020 04:12:39 [facility] Blood Culture Panel([employer])2020-03-09 14:56:00* Test Item Value Reference Range Interpretation Comments LISTERIA MONOCYTOGENES (test code = 82711-6) Not detected Not detec abiola STAPHYLOCOCCUS (test code = 19373-7) Detected Not detected A Coagulase negative Staph species (CoNS)- methicillin susceptibleFirst-line therapy: Cefazolin or Oxacillin (Oxacillin preferred if QUILL COLLECTOR involvement) MecA NOT DETECTEDPossible contamination. The likelihood of pathogenicity is increased if the organism is observed in multiple blood cultures obtained from separate venipunctures.Reference Range: Not Detected STAPHYLOCOCCUS AUREUS (test code = 33409-0) Not detected Not detect ed Streptococcus (test code = 74850-1) Not detected Not detected STREPTOCOCCUS AGALACTIAE (GROUP B) (test code = 44636-6) Not detected Not detected STREPTOCOCCUS PNEUMONIAE (test code = 95062-1) Not detected Not det ected Streptococcus pyogenes (Group A) (test code = 98587-9) Not d etected Not detected ACINETOBACTER BAUMANNII (test code = 49125-2) Not detected Not dete cted HAEMOPHILUS INFLUENZAE (test code = 95935-8) Not detected Not detec abiola NEISSERIA MENINGITIDIS (test code = 54147-9) Not detected Not detec abiola ENTEROBACTERIACEAE (test code = 13261-5) Not detected Not detected ENTEROBACTER CLOACOE COMPLEX (test code = 72343-0) Not detected Not detected KLEBSIELLA OXYTOCA (test code = 04216-5) Not detected Not detected KLEBSIELLA PNEUMONIAE (test code = 85581-0) Not detected Not detect ed PROTEUS (test code = 44270-6) Not detected Not detected SERRATIA MARCESCENS (test code = 97459-3) Not detected Not detected MARYLU ALBICANS (test code = 39191-3) Not detected Not detected MARYLU GLABRATA (test code = 78041-0) Not detected Not detected MARYLU KRUSEI (test code = 94195-4) Not detected Not detected MARYLU PARAPSILOSIS (test code = 71347-9) Not detected Not detecte d MARYLU TROPICALIS (test code = 23511-8) Not detected Not detected ESCHERICHIA COLI (test code = 28909-5) Not detected Not detected METHICILLIN-RESISTANCE GENE (test code = 92482-6) Not detected Not detected Note: Antimicrobial resistance can occur via multiple mechanisms. A Not Detected result for the [employer] antimicrobial resistance gene assays does not indicate antimicrobial susceptibility. Subculturing is required for species identification and susceptibility testing of isolates. VANCOMYCIN-RESISTANCE GENE (test code = 94611-2) CARBAPENEM-RESISTANCE GENE (test code = 68523-9) ENTEROCOCCUS (test code = 05465-1) Not detected Not detected PSEUDOMONAS AERUGINOSA (test code = 42091-0) Not detected Not detec abiola KO (test code = KO) Other bacteria and resistanc e markers not targeted by this PCR panel cannot be excluded; therefore clinical correlation and follow up of serology, culture results, and other molecular studies is required. The results are not intended to be used as the sole means for clinical diagnosis or patient management decisions. This sample was tested at the [facility] using the [employer] Blood Culture ID Panel. It is FDA cleared and has been verified and approved by the [facility] for clinical use. This laboratory is CLIA-certified and [employer] (CAP)-accredited to perform high complexity testing. Lab Interpretation (test code = 03881-0) [facility]normal [facility] [id number] 14:56:00* Test Item Value Reference Range Interpretation Comments LISTERIA MONOCYTOGENES (test code = 0130872) Not detected Not detec abiola STAPHYLOCOCCUS (test code = 7256583) Detected Not detected A Coagulase negative Staph species (CoNS)- methicillin susceptibleFirst-line therapy: Cefazolin or Oxacillin (Oxacillin preferred if QUILL COLLECTOR involvement) MecA NOT DETECTEDPossible contamination. The likelihood of pathogenicity is increased if the organism is observed in multiple blood cultures obtained from separate venipunctures.Reference Range: Not Detected STAPHYLOCOCCUS AUREUS (test code = 6106046) Not detected Not detect ed STREPTOCOCCUS (test code = 2686856) Not detected Not detected STREPTOCOCCUS AGALACTIAE (GROUP B) (test code = 9076431) Not detected Not detected STREPTOCOCCUS PNEUMONIAE (test code = 9719867) Not detected Not det ected STREPTOCOCCUS PYOGENES (GROUP A) (test code = 5308521) Not d etected Not detected ACINETOBACTER BAUMANNII (test code = 4646928) Not detected Not dete cted HAEMOPHILUS INFLUENZAE (test code = 4452629) Not detected Not detec abiola NEISSERIA MENINGITIDIS (test code = 5992901) Not detected Not detec abiola ENTEROBACTERIACEAE (test code = 0600886) Not detected Not detected ENTEROBACTER CLOACOE COMPLEX (test code = 7942631) Not detected Not detected KLEBSIELLA OXYTOCA (test code = 9797770) Not detected Not detected KLEBSIELLA PNEUMONIAE (test code = 1650) Not detected Not detected PROTEUS (test code = 2953642) Not detected Not detected SERRATIA MARCESCENS (test code = 3014686) Not detected Not detected MARYLU ALBICANS (test code = 1208617) Not detected Not detected MARYLU GLABRATA (test code = 2025200) Not detected Not detected MARYLU KRUSEI (test code = 0975820) Not detected Not detected MARYLU PARAPSILOSIS (test code = 4260955) Not detected Not detecte d MARYLU TROPICALIS (test code = 7603938) Not detected Not detected ESCHERICHIA COLI (test code = 3374516) Not detected Not detected METHICILLIN-RESISTANCE GENE (test code = 4231256) Not detected Not detected Note: Antimicrobial resistance can occur via multiple mechanisms. A Not Detected result for the [employer] antimicrobial resistance gene assays does not indicate antimicrobial susceptibility. Subculturing is required for species identification and susceptibility testing of isolates. VANCOMYCIN-RESISTANCE GENE (test code = 8226073) CARBAPENEM-RESISTANCE GENE (test code = 8731922) ENTEROCOCCUS-BEAKER (test code = 8249057) Not detected Not detected PSEUDOMONAS AERUGINOSA-BEAKER (test code = 9706718) Not detected No t detected Other bacteria and resistance markers not targeted by this PCR panel cannot be e xcluded; therefore clinical correlation and follow up of serology, culture resul ts, and other molecular studies is required. The results are not intended to be used as the sole means for clinical diagnosis or patient management decisions. T his sample was tested at the [facility] using the [employer] Blood Culture ID Panel. It is FDA cleared and has been verified and approved by the [facility] for clinical use. Thi s laboratory is CLIA-certified and [employer] (CAP)-accred ited to perform high complexity testing.CBC W/PLT COUNT & AUTO DIFFERENTIAL 2020-03-09 10:23:00* Test Item Value Reference Range Interpretation Comments WHITE BLOOD CELL COUNT (BEAKER) (test code = 775) 1.3 K/ L 3.5- 10.5 L RED BLOOD CELL COUNT (BEAKER) (test code = 761) 2.36 M/ L 3.93-5 .22 L HEMOGLOBIN (BEAKER) (test code = 410) 7.7 GM/DL 11.2-15.7 L HEMATOCRIT (BEAKER) (test code = 411) 23.2 % 34.1-44.9 L MEAN CORPUSCULAR VOLUME (BEAKER) (test code = 753) 98.3 fL 79. 4-94.8 H MEAN CORPUSCULAR HEMOGLOBIN (BEAKER) (test code = 751) 32.6 pg 25.6-32.2 H MEAN CORPUSCULAR HEMOGLOBIN CONC (BEAKER) (test code = 752) 33.2 GM/DL 32.2-35.5 RED CELL DISTRIBUTION WIDTH (BEAKER) (test code = 412) 15.3 % 11.7-14.4 H PLATELET COUNT (BEAKER) (test code = 756) 15 K/CU MM 150-450 L MEAN PLATELET VOLUME (BEAKER) (test code = 754) 12.0 fL 9.4-12 .3 NUCLEATED RED BLOOD CELLS (BEAKER) (test code = 413) 0 /100 WBC 0 -0 (CELLAVISION MANUAL DIFF)2020-03-09 10:23:00* Test Item Value Reference Range Interpretation Comments NEUTROPHILS - REL (CELLAVISION)(BEAKER) (test code = 2816) 42 % LYMPHOCYTES - REL (CELLAVISION)(BEAKER) (test code = 2817) 10 % MONOCYTES - REL (CELLAVISION)(BEAKER) (test code = 2818) 41 % BASOPHILS - REL (CELLAVISION)(BEAKER) (test code = 2820) 1 % METAMYELOCYTES - REL (CELLAVISION)(BEAKER) (test code = 2821) 1 % 0-0 H PROMYELOCYTES - REL (CELLAVSION)(BEAKER) (test code = 2825) 1 % 0-0 H BANDS - REL (CELLAVISION)(BEAKER) (test code = 2826) 3 % 0 -10 ATYPICAL LYMPHOCYTES - REL (CELLAVISION)(BEAKER) (test code = 2829) 1 % 0-0 H NEUTROPHILS - ABS (CELLAVISION)(BEAKER) (test code = 2830) 0.55 K/ul 1.56-6.13 L LYMPHOCYTES - ABS (CELLAVISION)(BEAKER) (test code = 2831) 0.13 K/ul 1.18-3.74 L MONOCYTES - ABS (CELLAVISION)(BEAKER) (test code = 2832) 0.53 K/uL 0.24-0.36 H BASOPHILS - ABS (CELLAVISION)(BEAKER) (test code = 2835) 0.01 K/uL 0.01-0.08 METAMYELOCYTES - ABS (CELLAVISION)(BEAKER) (test code = 2836 ) 0.01 K/uL 0.00-0.00 H PROMYELOCYTES - ABS (CELLAVISION)(BEAKER) (test code = 2838) 0.01 K/uL 0.00-0.00 H BANDS - ABS (CELLAVISION)(BEAKER) (test code = 2840) 0.04 K/uL 0 .00-0.80 ATYPICAL LYMPHOCYTES - ABS (CELLAVISION)(BEAKER) (test code = 1538) 0.01 K/uL 0.00-0.00 H TOTAL COUNTED (BEAKER) (test code = 1351) 100 PLT MORPHOLOGY (BEAKER) (test code = 486) Normal DOHLE BODIES (BEAKER) (test code = 359) Present POLYCHROMATOPHILLIC RBCS(BEAKER) (test code = 478) 2+ moderate ANISOCYTOSIS (BEAKER) (test code = 961) 1+ few MICROCYTES (BEAKER) (test code = 965) 1+ few POIKILOCYTES (BEAKER) (test code = 966) 1+ few SCHISTOCYTES (BEAKER) (test code = 765) 1+ few OVALOCYTES (BEAKER) (test code = 477) 1+ few ARTIFACT (CELLAVISION)(BEAKER) (test code = 3432) Present HELMET CELLS (CELLAVISION)(BEAKER) (test code = 3434) 1+ few PLATELET CONCENTRATION (CELLAVISION)(BEAKER) (test code = 3438) Dec reased Compotype Operator ID - [id number] ID - Zita comments: Slide comments: Hepatic function [id number] 07:55:00* Test Item Value Reference Range Interpretation Comments Protein, Total (test code = 2885-2) 6.4 6.0- 8.3 gm/dL Albumin (test code = 43291-0) 3.8 g/dL 3.5-5 Total Bilirubin (test code = 1974-) 0.8 mg/dL 0.2-1.2 Bilirubin, Direct (test code = 1967-7) 0.4 mg/dL 0.1-0.5 Alkaline Phosphatase (test code = 6768-6) 79 U/L 40-150 AST (test code = 1920-8) 13 U/L 5-34 ALT (test code = 1742-6) 15 U/L 6-55 KO (test code = KO) Compotype Operator ID - ClickGanicLAURENG Lab Interpretation (test code = 82738-8) [facility] 07:55:[facility]* Test Item Value Reference Range Interpretation Comments Magnesium (test code = 55423-6) 1.9 mg/dL 1.6-2.6 KO (test code = KO) Compotype Operator ID - ROSIANG Lab Interpretation (test code = 20881-7) [facility] 07:55:00* Test Item Value Reference Range Interpretation Comments Phosphorus (test code = 2777-1) 2.8 mg/dL 2.3-4.7 OK (test code = KO) Compotype Operator ID - ROSIANG Lab Interpretation (test code = 87548-7) [facility] [id number] 07:55:00* Test Item Value Reference Range Interpretation Comments SODIUM (BEAKER) (test code = 381) 140 meq/L 136-145 POTASSIUM (BEAKER) (test code = 379) 3.4 meq/L 3.5-5.1 L CHLORIDE (BEAKER) (test code = 382) 110 meq/L 98-107 H CO2 (BEAKER) (test code = 355) 24 meq/L 22-29 BLOOD UREA NITROGEN (BEAKER) (test code = 354) 14 mg/dL 7-21 CREATININE (BEAKER) (test code = 358) 0.67 mg/dL 0.57-1.25 GLUCOSE RANDOM (BEAKER) (test code = 652) 98 mg/dL 70-105 CALCIUM (BEAKER) (test code = 697) 9.0 mg/dL 8.4-10.2 EGFR (BEAKER) (test code = 1092) 89 mL/min/1.73 sq m ESTIMATED GFR IS NOT ACCURATE CREATININE CLEARANCE IN PREDICTING GLOMERULAR FILTRATION RATE. ESTIMATED GFR IS NOT APPLICABLE FOR DIALYSIS PATIENTS. Compotype Operator ID - [id number] 07:55:00* Test Item Value Reference Range Interpretation Comments MAGNESIUM (BEAKER) (test code = 627) 1.9 mg/dL 1.6-2.6 Compotype Operator ID - [id number] 07:55:00* Test Item Value Reference Range Interpretation Comments PHOSPHORUS (BEAKER) (test code = 604) 2.8 mg/dL 2.3-4.7 Compotype Operator ID - CASSGHEPATIC FUNCTION [id number] 07:55:00* Test Item Value Reference Range Interpretation Comments TOTAL PROTEIN (BEAKER) (test code = 770) 6.4 gm/dL 6.0-8.3 ALBUMIN (BEAKER) (test code = 1145) 3.8 g/dL 3.5-5.0 BILIRUBIN TOTAL (BEAKER) (test code = 377) 0.8 mg/dL 0.2-1.2 BILIRUBIN DIRECT (BEAKER) (test code = 706) 0.4 mg/dL 0.1-0.5 ALKALINE PHOSPHATASE (BEAKER) (test code = 346) 79 U/L 40-150 AST (SGOT) (BEAKER) (test code = 353) 13 U/L 5-34 ALT (SGPT) (BEAKER) (test code = 347) 15 U/L 6-55 Compotype Operator ID - OLGArothrombin time/[id number] 07:21:00* Test Item Value Reference Range Interpretation Comments Protime (test code = 5902-2) 13.8 11.9- 14.2 seconds INR (test code = 6301-6) 1.09 <=5.90 KO (test code = KO) Effective 10/25/2018: PT Refe rence Range ChangeNew: 11.9- 14.2 Previous: 11.7-14.7 RECOMMENDED COUMADIN/WARFARIN INR THERAPY RANGESSTANDARD DOSE: 2.0-3.0 Includes: PROPHYLAXIS for venous thrombosis, sys temic embolization; TREATMENT for venous thrombosis and/or pulmonary embolus.HIGH RISK: Target INR is 2.5-3.5 for patients wiht mechanical heart valves. Lab Interpretation (test code = 65820-5) [facility]HROMBIN TIME/FYS2909-03-38 07:21:00* Test Item Value Reference Range Interpretation Comments PROTIME (BEAKER) (test code = 759) 13.8 seconds 11.9-14.2 INR (BEAKER) (test code = 370) 1.09 <=5.90 Effective 10/25/2018: PT Reference Range ChangeNew: 11.9-14.2 Previous: 11.7-14. 7RECOMMENDED COUMADIN/WARFARIN INR THERAPY RANGESSTANDARD DOSE: 2.0-3.0 Include s: PROPHYLAXIS for venous thrombosis, systemic embolization; TREATMENT for venou s thrombosis and/or pulmonary embolus.HIGH RISK: Target INR is 2.5-3.5 for patie nts wiht mechanical heart valves.CT, [id number] 22:11:00Reason for exam:- >FEVERReason for exam:->EMESISWhat is the patient's sedation requirement?->No SedationFINAL REPORT TECHNIQUE: CT of the abdomen and pelvis WITH intravenous contrast and WITHOUT oral contrast. Dose modulation, iterative reconstruction, and/or weight-based adjustment of the mA/kV was utilized to reduce the radiation dose to as low as reasonably achievable. INDICATION: Unlisted Reason for ExamFEVEREMESIS. COMPARISON: 01/26/2028 chest, 10/24/2019 CT abdomen/pelvis. FINDINGS: LOWER THORAX: New pleural-based nodular density in the right lower lobe with diameter of 1.2 cm. HEPATOBILIARY: No focal hepatic lesions. Gallbladder is unremarkable. No biliary ductal dilatation.SPLEEN: No splenomegaly.PANCREAS: No focal masses or ductal dilatation. ADRENALS: No adrenal nodules.KIDNEYS/URETERS: No hydronephrosis, stones, or masses.PELVIC ORGANS/BLADDER: Bladder and uterus are unremarkable. No adnexal mass. PERITONEUM/RETROPERITONEUM: No free air or fluid.LYMPH NODES: No lymphadenopathy.VESSELS: Unremarkable. GI TRACT: No distention or wall thickening. Normal appendix. BONES AND SOFT TISSUES: No acute osseous abnormality. Soft tissues are unremarkable.. IMPRESSION: 1. No acute abno rmality within the abdomen or pelvis. 2. New 1.2 cm subpleural pulmonary nodule in the right lower lobe suspicious for infectious/inflammation. Consider follow- up in three months to ensure resolution Signed: Tayler More MDReport Verified D ate/Time: 03/08/2020 22:11:58 abdomen pelvis with IV [id number] 22:11:00 Interface, External Ris In - 03/08/2020 10:14 PM CDTFINAL REPORT PATIENT ID: [id number] TECHNIQUE: CT of the abdomen and pelvis WITH intravenous contrast and WI THOUT oral contrast. Dose modulation, iterative reconstruction, and/or weight-ba sed adjustment of the mA/kV was utilized to reduce the radiation dose to as low as reasonably achievable. INDICATION: Unlisted Reason for ExamFEVEREMESIS. PRITESH RISON: 01/26/2028 chest, 10/24/2019 CT abdomen/pelvis. FINDINGS: LOWER THORAX: Ne w pleural-based nodular density in the right lower lobe with diameter of 1.2 cm. HEPATOBILIARY: No focal hepatic lesions. Gallbladder is unremarkable. No biliar y ductal dilatation.SPLEEN: No splenomegaly.PANCREAS: No focal masses or ductal dilatation. ADRENALS: No adrenal nodules.KIDNEYS/URETERS: No hydronephrosis, sto rubina, or masses.PELVIC ORGANS/BLADDER: Bladder and uterus are unremarkable. No ad nexal mass. PERITONEUM/RETROPERITONEUM: No free air or fluid.LYMPH NODES: No lym phadenopathy.VESSELS: Unremarkable. GI TRACT: No distention or wall thickening. Normal appendix. BONES AND SOFT TISSUES: No acute osseous abnormality. Soft tiss ues are unremarkable.. IMPRESSION: 1. No acute abnormality within the abdomen o r pelvis. 2. New 1.2 cm subpleural pulmonary nodule in the right lower lobe susp icious for infectious/inflammation. Consider follow-up in three months to ensure resolution Signed: Tayler More MDReport Verified Date/Time: 03/08/2020 22:11: 58 [facility] UR[facility] [id number] 21:33:00 * Test Item Value Reference Range Interpretation Comments COLOR (BEAKER) (test code = 470) Yellow CLARITY (BEAKER) (test code = 469) Clear SPECIFIC GRAVITY UA (BEAKER) (test code = 468) 1.015 1.001-1 .035 PH UA (BEAKER) (test code = 467) 8.0 5.0-8.0 PROTEIN UA (BEAKER) (test code = 464) Negative Negative GLUCOSE UA (BEAKER) (test code = 365) Negative Negative KETONES UA (BEAKER) (test code = 371) Negative Negative BILIRUBIN UA (BEAKER) (test code = 462) Negative Negative BLOOD UA (BEAKER) (test code = 461) Negative Negative NITRITE UA (BEAKER) (test code = 465) Negative Negative LEUKOCYTE ESTERASE UA (BEAKER) (test code = 466) Negative Negat neetu UROBILINOGEN UA (BEAKER) (test code = 463) 0.2 mg/dL 0.2-1.0 RBC UA (BEAKER) (test code = 519) 0 /HPF WBC UA (BEAKER) (test code = 520) 0 /HPF SOURCE(BEAKER) (test code = 2795) Compotype Operator ID - [auto]Compotype Operator ID - [id number] 21:18:00* Test Item Value Reference Range Interpretation Comments Lipase (test code = 3040-3) 108 U/L 8-78 H KO (test code = KO) Compotype Operator ID - DB Lab Interpretation (test code = 20988-2) [facility] 21:18:00* Test Item Value Reference Range Interpretation Comments LIPASE (BEAKER) (test code = 749) 108 U/L 8-78 H Compotype Operator ID - DBRAD, CHEST, 1 VIEW, NON [id number] 20:38:00Reason for exam:- >FEVERShould this be performed at the bedside?->YesFINAL REPORT Chest one view. Clinical history: FEVER Comparison: Chest radiograph 02/05/2020. Technique: A single frontal view of the chest was obtained. Findings:There is a right PICC line with tip in the SVC.The heart is normal in size. The aorta is tortuous and atherosclerotic. There is mild linear scarring in the bilateral upper lobes and left lung base. There is no focal pulmonary consolidation, pleural effusion or pneumothorax. There is no pulmonary edema. The osseous structures are unremarkable. Impression: No focal pulmonary consolidation. Signed: Keven Tomas MDReport Verified Date/Time: 03/08/2020 20:38:09 08 :38 PM (CELLAVISION MANUAL DIFF)2020-03-08 17:12:00* Test Item Value Reference Range Interpretation Comments NEUTROPHILS - REL (CELLAVISION)(BEAKER) (test code = 2816) 33 % LYMPHOCYTES - REL (CELLAVISION)(BEAKER) (test code = 2817) 18 % MONOCYTES - REL (CELLAVISION)(BEAKER) (test code = 2818) 39 % BANDS - REL (CELLAVISION)(BEAKER) (test code = 2826) 7 % 0 -10 ATYPICAL LYMPHOCYTES - REL (CELLAVISION)(BEAKER) (test code = 2829) 3 % 0-0 H NEUTROPHILS - ABS (CELLAVISION)(BEAKER) (test code = 2830) 0.23 K/ul 1.56-6.13 L LYMPHOCYTES - ABS (CELLAVISION)(BEAKER) (test code = 2831) 0.13 K/ul 1.18-3.74 L MONOCYTES - ABS (CELLAVISION)(BEAKER) (test code = 2832) 0.27 K/uL 0.24-0.36 BANDS - ABS (CELLAVISION)(BEAKER) (test code = 2840) 0.05 K/uL 0 .00-0.80 ATYPICAL LYMPHOCYTES - ABS (CELLAVISION)(BEAKER) (test code = 2858) 0.02 K/uL 0.00-0.00 H TOTAL COUNTED (BEAKER) (test code = 1351) 100 PLT MORPHOLOGY (BEAKER) (test code = 486) Normal DOHLE BODIES (BEAKER) (test code = 359) Present TOXIC GRANULATION (BEAKER) (test code = 771) Present VACUOLATED NEUTROPHILS (BEAKER) (test code = 483) Present POLYCHROMATOPHILLIC RBCS(BEAKER) (test code = 478) 2+ moderate ANISOCYTOSIS (BEAKER) (test code = 961) 1+ few MACROCYTES (BEAKER) (test code = 964) 1+ few POIKILOCYTES (BEAKER) (test code = 966) 1+ few ELLIPTOCYTES (BEAKER) (test code = 962) 1+ few TEAR DROP CELLS (BEAKER) (test code = 481) 1+ few ARTIFACT (CELLAVISION)(BEAKER) (test code = 3432) Present PLATELET CONCENTRATION (CELLAVISION)(BEAKER) (test code = 3438) Dec reased Compotype Operator ID - [id number] ID - Jennifer comments: Slide comments: Creatine Kinase (CK)2020-03-08 16:53:00* Test Item Value Reference Range Interpretation Comments Total CK (test code = 2157-6) 30 U/L 29-200 KO (test code = KO) Compotype Operator ID - DB Lab Interpretation (test code = 30300-5) [facility]2020-03-08 16:53:00* Test Item Value Reference Range Interpretation Comments CREATINE KINASE TOTAL (BEAKER) (test code = 380) 30 U/L 29-20 0 Compotype Operator ID - [id number] 16:36:00* Test Item Value Reference Range Interpretation Comments PHOSPHORUS (BEAKER) (test code = 604) 1.4 mg/dL 2.3-4.7 LL Compotype Operator ID - EDASIPT/[id number] 16:34:00* Test Item Value Reference Range Interpretation Comments PROTIME (BEAKER) (test code = 759) 14.5 seconds 11.9-14.2 H INR (BEAKER) (test code = 370) 1.16 <=5.90 PARTIAL THROMBOPLASTIN TIME (BEAKER) (test code = 760) 36.9 seconds 22.5-36.0 H Effective 10/25/2018: PT Reference Range ChangeNew: 11.9-14.2 Previous: 11.7-14. 7RECOMMENDED COUMADIN/WARFARIN INR THERAPY RANGESSTANDARD DOSE: 2.0-3.0 Include s: PROPHYLAXIS for venous thrombosis, systemic embolization; TREATMENT for venou s thrombosis and/or pulmonary embolus.HIGH RISK: Target INR is 2.5-3.5 for patie nts wiht mechanical heart valves.COMPREHENSIVE METABOLIC [id number] 16:30:00* Test Item Value Reference Range Interpretation Comments TOTAL PROTEIN (BEAKER) (test code = 770) 7.1 gm/dL 6.0-8.3 ALBUMIN (BEAKER) (test code = 1145) 4.3 g/dL 3.5-5.0 ALKALINE PHOSPHATASE (BEAKER) (test code = 346) 82 U/L 40-150 BILIRUBIN TOTAL (BEAKER) (test code = 377) 1.0 mg/dL 0.2-1.2 SODIUM (BEAKER) (test code = 381) 138 meq/L 136-145 POTASSIUM (BEAKER) (test code = 379) 3.1 meq/L 3.5-5.1 L CHLORIDE (BEAKER) (test code = 382) 104 meq/L 98-107 CO2 (BEAKER) (test code = 355) 22 meq/L 22-29 BLOOD UREA NITROGEN (BEAKER) (test code = 354) 35 mg/dL 7-21 H CREATININE (BEAKER) (test code = 358) 0.86 mg/dL 0.57-1.25 GLUCOSE RANDOM (BEAKER) (test code = 652) 164 mg/dL 70-105 H CALCIUM (BEAKER) (test code = 697) 9.6 mg/dL 8.4-10.2 AST (SGOT) (BEAKER) (test code = 353) 14 U/L 5-34 ALT (SGPT) (BEAKER) (test code = 347) 17 U/L 6-55 EGFR (BEAKER) (test code = 1092) 67 mL/min/1.73 sq m ESTIMATED GFR IS NOT ACCURATE CREATININE CLEARANCE IN PREDICTING GLOMERULAR FILTRATION RATE. ESTIMATED GFR IS NOT APPLICABLE FOR DIALYSIS PATIENTS. Compotype Operator ID - [id number] 16:30:00* Test Item Value Reference Range Interpretation Comments MAGNESIUM (BEAKER) (test code = 627) 2.2 mg/dL 1.6-2.6 Compotype Operator ID - EDASILACTIC ACID, [id number] 16:26:00* Test Item Value Reference Range Interpretation Comments LACTATE BLOOD VENOUS (2) (BEAKER) (test code = 2872) 2.13 mmol/L 0 .50-2.20 Specimen slightly hemolyzed Compotype Operator ID - EDASICBC W/PLT COUNT & AUTO [id number] 16:22:00* Test Item Value Reference Range Interpretation Comments WHITE BLOOD CELL COUNT (BEAKER) (test code = 775) 0.7 K/ L 3.5- 10.5 LL RED BLOOD CELL COUNT (BEAKER) (test code = 761) 1.99 M/ L 3.93-5 .22 L HEMOGLOBIN (BEAKER) (test code = 410) 6.9 GM/DL 11.2-15.7 L HEMATOCRIT (BEAKER) (test code = 411) 20.0 % 34.1-44.9 L MEAN CORPUSCULAR VOLUME (BEAKER) (test code = 753) 100.5 fL 79. 4-94.8 H MEAN CORPUSCULAR HEMOGLOBIN (BEAKER) (test code = 751) 34.7 pg 25.6-32.2 H MEAN CORPUSCULAR HEMOGLOBIN CONC (BEAKER) (test code = 752) 34.5 GM/DL 32.2-35.5 RED CELL DISTRIBUTION WIDTH (BEAKER) (test code = 412) 14.9 % 11.7-14.4 H PLATELET COUNT (BEAKER) (test code = 756) 21 K/CU MM 150-450 L MEAN PLATELET VOLUME (BEAKER) (test code = 754) 11.0 fL 9.4-12 .3 NUCLEATED RED BLOOD CELLS (BEAKER) (test code = 413) 3 /100 WBC 0 -0 H CRITICAL [id number] 15:32:14Param Benitez MD 03/08/2020 5:15 PMCritical CarePerformed by: Param Benitez MDAuthorized by: Param Benitez MD Total critical care time: 68 minutesCritical care was necessary to treat or prevent imminent or life-threatening deterioration of the following conditions: sepsis.Critical care was time spent personally by me on the following activities: development of treatment plan with patient or surrogate, discussions with consultants, discussions with primary provider, interpretation of cardiac output measurements, evaluation of patient's response to treatment, examination of patient, obtaining history from patient or surrogate, ordering and performing treatments and interventions, ordering and review of laboratory studies, ordering and review of radiographic studies, pulse oximetry, re- evaluation of patient's condition and review of old charts. [facility] Leuko-Red [id number] 23:54:00* Test Item Value Reference Range Interpretation Comments Unit ABO (test code = 6289405) O Neg UNIT NUMBER (test code = 934-0) [id number] Status (test code = 7788982) TX_TIMEINCHART Blood Bank Product (test code = 2263) PLATELETS PRODUCT CODE (test code = 933-2) [id number] [facility](CELLAVISION MANUAL DIFF)2020-03-06 19:28:00* Test Item Value Reference Range Interpretation Comments LYMPHOCYTES - REL (CELLAVISION)(BEAKER) (test code = 2817) 96 % MONOCYTES - REL (CELLAVISION)(BEAKER) (test code = 2818) 4 % LYMPHOCYTES - ABS (CELLAVISION)(BEAKER) (test code = 2831) 0.10 K/ul 1.18-3.74 L MONOCYTES - ABS (CELLAVISION)(BEAKER) (test code = 2832) 0.00 K/uL 0.24-0.36 L TOTAL COUNTED (BEAKER) (test code = 1351) 100 WBC MORPHOLOGY (BEAKER) (test code = 487) Normal PLT MORPHOLOGY (BEAKER) (test code = 486) Normal POLYCHROMATOPHILLIC RBCS(BEAKER) (test code = 478) 1+ few ANISOCYTOSIS (BEAKER) (test code = 961) 2+ moderate MICROCYTES (BEAKER) (test code = 965) 2+ moderate POIKILOCYTES (BEAKER) (test code = 966) 1+ few ELLIPTOCYTES (BEAKER) (test code = 962) 1+ few ARTIFACT (CELLAVISION)(BEAKER) (test code = 3432) Present PLATELET CONCENTRATION (CELLAVISION)(BEAKER) (test code = 3438) Dec reased Compotype Operator ID - [id number] ID - Jennifer comments: Slide comments: CBC W/PLT COUNT & AUTO [id number] 19:07:00* Test Item Value Reference Range Interpretation Comments WHITE BLOOD CELL COUNT (BEAKER) (test code = 775) 0.1 K/ L 3.5- 10.5 LL RED BLOOD CELL COUNT (BEAKER) (test code = 761) 1.77 M/ L 3.93-5 .22 L HEMOGLOBIN (BEAKER) (test code = 410) 6.1 GM/DL 11.2-15.7 L HEMATOCRIT (BEAKER) (test code = 411) 18.1 % 34.1-44.9 L MEAN CORPUSCULAR VOLUME (BEAKER) (test code = 753) 102.3 fL 79. 4-94.8 H MEAN CORPUSCULAR HEMOGLOBIN (BEAKER) (test code = 751) 34.5 pg 25.6-32.2 H MEAN CORPUSCULAR HEMOGLOBIN CONC (BEAKER) (test code = 752) 33.7 GM/DL 32.2-35.5 RED CELL DISTRIBUTION WIDTH (BEAKER) (test code = 412) 15.6 % 11.7-14.4 H PLATELET COUNT (BEAKER) (test code = 756) 61 K/CU MM 150-450 L MEAN PLATELET VOLUME (BEAKER) (test code = 754) 12.0 fL 9.4-12 .3 NUCLEATED RED BLOOD CELLS (BEAKER) (test code = 413) 0 /100 WBC 0 -0 (CELLAVISION MANUAL DIFF)2020-03-04 18:40:00* Test Item Value Reference Range Interpretation Comments LYMPHOCYTES - REL (CELLAVISION)(BEAKER) (test code = 2817) 97 % MONOCYTES - REL (CELLAVISION)(BEAKER) (test code = 2818) 1 % ATYPICAL LYMPHOCYTES - REL (CELLAVISION)(BEAKER) (test code = 2829) 2 % 0-0 H LYMPHOCYTES - ABS (CELLAVISION)(BEAKER) (test code = 2831) 0.10 K/ul 1.18-3.74 L MONOCYTES - ABS (CELLAVISION)(BEAKER) (test code = 2832) 0.00 K/uL 0.24-0.36 L ATYPICAL LYMPHOCYTES - ABS (CELLAVISION)(BEAKER) (test code = 2858) 0.00 K/uL 0.00-0.00 TOTAL COUNTED (BEAKER) (test code = 1351) 100 PLT MORPHOLOGY (BEAKER) (test code = 486) Normal SMUDGE CELLS (BEAKER) (test code = 1371) Present ANISOCYTOSIS (BEAKER) (test code = 961) 1+ few MACROCYTES (BEAKER) (test code = 964) 1+ few ARTIFACT (CELLAVISION)(BEAKER) (test code = 3432) Present PLATELET CONCENTRATION (CELLAVISION)(BEAKER) (test code = 3438) Dec reased Compotype Operator ID - [id number] ID - Marielena Angel comments: Slide comments: CBC W/PLT COUNT & AUTO [id number] 17:30:00* Test Item Value Reference Range Interpretation Comments WHITE BLOOD CELL COUNT (BEAKER) (test code = 775) 0.1 K/ L 3.5- 10.5 LL RED BLOOD CELL COUNT (BEAKER) (test code = 761) 2.20 M/ L 3.93-5 .22 L HEMOGLOBIN (BEAKER) (test code = 410) 7.4 GM/DL 11.2-15.7 L HEMATOCRIT (BEAKER) (test code = 411) 22.1 % 34.1-44.9 L MEAN CORPUSCULAR VOLUME (BEAKER) (test code = 753) 100.5 fL 79. 4-94.8 H MEAN CORPUSCULAR HEMOGLOBIN (BEAKER) (test code = 751) 33.6 pg 25.6-32.2 H MEAN CORPUSCULAR HEMOGLOBIN CONC (BEAKER) (test code = 752) 33.5 GM/DL 32.2-35.5 RED CELL DISTRIBUTION WIDTH (BEAKER) (test code = 412) 16.8 % 11.7-14.4 H PLATELET COUNT (BEAKER) (test code = 756) 35 K/CU MM 150-450 L MEAN PLATELET VOLUME (BEAKER) (test code = 754) 9.1 fL 9.4-12 .3 L NUCLEATED RED BLOOD CELLS (BEAKER) (test code = 413) 0 /100 WBC 0 -0 Manual [id number] 14:42:00* Test Item Value Reference Range Interpretation Comments % Neutros (manual) (test code = 1359) 7 % % Lymphs (manual) (test code = 1360) 93 % # Neutros (manual) (test code = 1365) 0.01 1.80- 8.00 K/L L # Lymphs (manual) (test code = 1366) 0.09 1.48- 4.50 K/L L Total Counted (test code = 1351) 46 Platelet Morphology (test code = 486) Normal RBC Morphology (test code = 762) Normal Atypical Lymphs (test code = 1678) Present Lab Interpretation (test code = 35088-7) Abnormal [facility] W/PLT COUNT & AUTO [id number] 14:42:00* Test Item Value Reference Range Interpretation Comments WHITE BLOOD CELL COUNT (BEAKER) (test code = 775) 0.1 K/ L 3.5- 10.5 LL RED BLOOD CELL COUNT (BEAKER) (test code = 761) 2.48 M/ L 3.93-5 .22 L HEMOGLOBIN (BEAKER) (test code = 410) 8.5 GM/DL 11.2-15.7 L HEMATOCRIT (BEAKER) (test code = 411) 24.8 % 34.1-44.9 L MEAN CORPUSCULAR VOLUME (BEAKER) (test code = 753) 100.0 fL 79. 4-94.8 H MEAN CORPUSCULAR HEMOGLOBIN (BEAKER) (test code = 751) 34.3 pg 25.6-32.2 H MEAN CORPUSCULAR HEMOGLOBIN CONC (BEAKER) (test code = 752) 34.3 GM/DL 32.2-35.5 RED CELL DISTRIBUTION WIDTH (BEAKER) (test code = 412) 16.6 % 11.7-14.4 H PLATELET COUNT (BEAKER) (test code = 756) 1 K/CU MM 150-450 LL MEAN PLATELET VOLUME (BEAKER) (test code = 754) Unable to report due to abnormal Platelet population distribution. NUCLEATED RED BLOOD CELLS (BEAKER) (test code = 413) 0 /100 WBC 0 -0 (MANUAL DIFFERENTIAL)2020-03-04 14:42:00* Test Item Value Reference Range Interpretation Comments NEUTROPHILS - REL (DIFF) (BEAKER) (test code = 1359) 7 % LYMPHOCYTES - REL (DIFF) (BEAKER) (test code = 1360) 93 % NEUTROPHILS - ABS (DIFF) (BEAKER) (test code = 1365) 0.01 K/ L 1 .80-8.00 L LYMPHOCYTES - ABS (DIFF) (BEAKER) (test code = 1366) 0.09 K/ L 1 .48-4.50 L TOTAL COUNTED (BEAKER) (test code = 1351) 46 PLT MORPHOLOGY (BEAKER) (test code = 486) Normal RBC MORPHOLOGY (BEAKER) (test code = 762) Normal ATYPICAL LYMPHS(BEAKER) (test code = 1678) Present COMPREHENSIVE METABOLIC [id number] 13:00:00* Test Item Value Reference Range Interpretation Comments TOTAL PROTEIN (BEAKER) (test code = 770) 6.9 gm/dL 6.0-8.3 ALBUMIN (BEAKER) (test code = 1145) 4.4 g/dL 3.5-5.0 ALKALINE PHOSPHATASE (BEAKER) (test code = 346) 74 U/L 40-150 BILIRUBIN TOTAL (BEAKER) (test code = 377) 0.9 mg/dL 0.2-1.2 SODIUM (BEAKER) (test code = 381) 141 meq/L 136-145 POTASSIUM (BEAKER) (test code = 379) 3.8 meq/L 3.5-5.1 CHLORIDE (BEAKER) (test code = 382) 107 meq/L 98-107 CO2 (BEAKER) (test code = 355) 25 meq/L 22-29 BLOOD UREA NITROGEN (BEAKER) (test code = 354) 24 mg/dL 7-21 H CREATININE (BEAKER) (test code = 358) 0.87 mg/dL 0.57-1.25 GLUCOSE RANDOM (BEAKER) (test code = 652) 105 mg/dL 70-105 CALCIUM (BEAKER) (test code = 697) 9.2 mg/dL 8.4-10.2 AST (SGOT) (BEAKER) (test code = 353) 15 U/L 5-34 ALT (SGPT) (BEAKER) (test code = 347) 18 U/L 6-55 EGFR (BEAKER) (test code = 1092) 66 mL/min/1.73 sq m ESTIMATED GFR IS NOT ACCURATE CREATININE CLEARANCE IN PREDICTING GLOMERULAR FILTRATION RATE. ESTIMATED GFR IS NOT APPLICABLE FOR DIALYSIS PATIENTS. Compotype Operator ID - IVANA CCBC W/PLT COUNT & AUTO [id number] 11:53:00* Test Item Value Reference Range Interpretation Comments WHITE BLOOD CELL COUNT (BEAKER) (test code = 775) 1.0 K/ L 3.5- 10.5 LL RED BLOOD CELL COUNT (BEAKER) (test code = 761) 2.56 M/ L 3.93-5 .22 L HEMOGLOBIN (BEAKER) (test code = 410) 8.7 GM/DL 11.2-15.7 L HEMATOCRIT (BEAKER) (test code = 411) 26.9 % 34.1-44.9 L MEAN CORPUSCULAR VOLUME (BEAKER) (test code = 753) 105.1 fL 79. 4-94.8 H MEAN CORPUSCULAR HEMOGLOBIN (BEAKER) (test code = 751) 34.0 pg 25.6-32.2 H MEAN CORPUSCULAR HEMOGLOBIN CONC (BEAKER) (test code = 752) 32.3 GM/DL 32.2-35.5 RED CELL DISTRIBUTION WIDTH (BEAKER) (test code = 412) 20.0 % 11.7-14.4 H PLATELET COUNT (BEAKER) (test code = 756) 52 K/CU MM 150-450 L MEAN PLATELET VOLUME (BEAKER) (test code = 754) 10.0 fL 9.4-12 .3 NUCLEATED RED BLOOD CELLS (BEAKER) (test code = 413) 0 /100 WBC 0 -0 (MANUAL DIFFERENTIAL)2020-02-27 11:53:00* Test Item Value Reference Range Interpretation Comments NEUTROPHILS - REL (DIFF) (BEAKER) (test code = 1359) 98 % LYMPHOCYTES - REL (DIFF) (BEAKER) (test code = 1360) 2 % NEUTROPHILS - ABS (DIFF) (BEAKER) (test code = 1365) 0.98 K/ L 1 .80-8.00 L LYMPHOCYTES - ABS (DIFF) (BEAKER) (test code = 1366) 0.02 K/ L 1 .48-4.50 L TOTAL COUNTED (BEAKER) (test code = 1351) 100 WBC MORPHOLOGY (BEAKER) (test code = 487) Normal PLT MORPHOLOGY (BEAKER) (test code = 486) Normal ANISOCYTOSIS (BEAKER) (test code = 961) 1+ few MACROCYTES (BEAKER) (test code = 964) 1+ few OVALOCYTES (BEAKER) (test code = 477) 1+ few POIKILOCYTES (BEAKER) (test code = 966) 1+ few TEAR DROP CELLS (BEAKER) (test code = 481) 1+ few [id number] 06:19:00* Test Item Value Reference Range Interpretation Comments MAGNESIUM (BEAKER) (test code = 627) 2.0 mg/dL 1.6-2.6 Compotype Operator ID - EDASIBASIC METABOLIC [id number] 06:19:00* Test Item Value Reference Range Interpretation Comments SODIUM (BEAKER) (test code = 381) 141 meq/L 136-145 POTASSIUM (BEAKER) (test code = 379) 4.3 meq/L 3.5-5.1 CHLORIDE (BEAKER) (test code = 382) 109 meq/L 98-107 H CO2 (BEAKER) (test code = 355) 24 meq/L 22-29 BLOOD UREA NITROGEN (BEAKER) (test code = 354) 18 mg/dL 7-21 CREATININE (BEAKER) (test code = 358) 0.66 mg/dL 0.57-1.25 GLUCOSE RANDOM (BEAKER) (test code = 652) 135 mg/dL 70-105 H CALCIUM (BEAKER) (test code = 697) 8.6 mg/dL 8.4-10.2 EGFR (BEAKER) (test code = 1092) 91 mL/min/1.73 sq m ESTIMATED GFR IS NOT ACCURATE CREATININE CLEARANCE IN PREDICTING GLOMERULAR FILTRATION RATE. ESTIMATED GFR IS NOT APPLICABLE FOR DIALYSIS PATIENTS. Compotype Operator ID - EDASIHEPATIC FUNCTION [id number] 12:02:00* Test Item Value Reference Range Interpretation Comments TOTAL PROTEIN (BEAKER) (test code = 770) 6.3 gm/dL 6.0-8.3 ALBUMIN (BEAKER) (test code = 1145) 4.1 g/dL 3.5-5.0 BILIRUBIN TOTAL (BEAKER) (test code = 377) 0.6 mg/dL 0.2-1.2 BILIRUBIN DIRECT (BEAKER) (test code = 706) 0.3 mg/dL 0.1-0.5 ALKALINE PHOSPHATASE (BEAKER) (test code = 346) 67 U/L 40-150 AST (SGOT) (BEAKER) (test code = 353) 20 U/L 5-34 ALT (SGPT) (BEAKER) (test code = 347) 20 U/L 6-55 Compotype Operator ID - ROSIANGTSH/Free T4 If [id number] 05:14:00* Test Item Value Reference Range Interpretation Comments TSH (test code = 81761-7) 0.953 0.350- 4.940 uIU/mL KO (test code = KO) Compotype Operator ID - WU L Lab Interpretation (test code = 87245-5) [facility] [id number] 05:14:00* Test Item Value Reference Range Interpretation Comments THYROID STIMULATING HORMONE (BEAKER) (test code = 772) 0.953 uIU /mL 0.350-4.940 Compotype Operator ID - WU [id number] 04:53:00* Test Item Value Reference Range Interpretation Comments MAGNESIUM (BEAKER) (test code = 627) 2.1 mg/dL 1.6-2.6 Compotype Operator ID - EDASIBASIC METABOLIC [id number] 04:53:00* Test Item Value Reference Range Interpretation Comments SODIUM (BEAKER) (test code = 381) 141 meq/L 136-145 POTASSIUM (BEAKER) (test code = 379) 3.9 meq/L 3.5-5.1 CHLORIDE (BEAKER) (test code = 382) 110 meq/L 98-107 H CO2 (BEAKER) (test code = 355) 24 meq/L 22-29 BLOOD UREA NITROGEN (BEAKER) (test code = 354) 14 mg/dL 7-21 CREATININE (BEAKER) (test code = 358) 0.64 mg/dL 0.57-1.25 GLUCOSE RANDOM (BEAKER) (test code = 652) 113 mg/dL 70-105 H CALCIUM (BEAKER) (test code = 697) 8.9 mg/dL 8.4-10.2 EGFR (BEAKER) (test code = 1092) 94 mL/min/1.73 sq m ESTIMATED GFR IS NOT ACCURATE CREATININE CLEARANCE IN PREDICTING GLOMERULAR FILTRATION RATE. ESTIMATED GFR IS NOT APPLICABLE FOR DIALYSIS PATIENTS. Compotype Operator ID - EDASICBC W/PLT COUNT & AUTO [id number] 04:22:00* Test Item Value Reference Range Interpretation Comments WHITE BLOOD CELL COUNT (BEAKER) (test code = 775) 3.1 K/ L 3.5- 10.5 L RED BLOOD CELL COUNT (BEAKER) (test code = 761) 2.54 M/ L 3.93-5 .22 L HEMOGLOBIN (BEAKER) (test code = 410) 8.7 GM/DL 11.2-15.7 L HEMATOCRIT (BEAKER) (test code = 411) 26.4 % 34.1-44.9 L MEAN CORPUSCULAR VOLUME (BEAKER) (test code = 753) 103.9 fL 79. 4-94.8 H MEAN CORPUSCULAR HEMOGLOBIN (BEAKER) (test code = 751) 34.3 pg 25.6-32.2 H MEAN CORPUSCULAR HEMOGLOBIN CONC (BEAKER) (test code = 752) 33.0 GM/DL 32.2-35.5 RED CELL DISTRIBUTION WIDTH (BEAKER) (test code = 412) 20.2 % 11.7-14.4 H PLATELET COUNT (BEAKER) (test code = 756) 56 K/CU MM 150-450 L MEAN PLATELET VOLUME (BEAKER) (test code = 754) 10.3 fL 9.4-12 .3 NUCLEATED RED BLOOD CELLS (BEAKER) (test code = 413) 0 /100 WBC 0 -0 NEUTROPHILS RELATIVE PERCENT (BEAKER) (test code = 429) 97 % LYMPHOCYTES RELATIVE PERCENT (BEAKER) (test code = 430) 1 % MONOCYTES RELATIVE PERCENT (BEAKER) (test code = 431) 1 % EOSINOPHILS RELATIVE PERCENT (BEAKER) (test code = 432) 0 % BASOPHILS RELATIVE PERCENT (BEAKER) (test code = 437) 0 % NEUTROPHILS ABSOLUTE COUNT (BEAKER) (test code = 670) 3.01 K/ L 1.56-6.13 LYMPHOCYTES ABSOLUTE COUNT (BEAKER) (test code = 414) 0.04 K/ L 1.18-3.74 L MONOCYTES ABSOLUTE COUNT (BEAKER) (test code = 415) 0.03 K/ L 0. 24-0.36 L EOSINOPHILS ABSOLUTE COUNT (BEAKER) (test code = 416) 0.00 K/ L 0.04-0.36 L BASOPHILS ABSOLUTE COUNT (BEAKER) (test code = 417) 0.00 K/ L 0. 01-0.08 L IMMATURE GRANULOCYTES-RELATIVE PERCENT (BEAKER) (test code = 2801) 1 % 0-1 CBC W/PLT COUNT & AUTO [id number] 07:21:00* Test Item Value Reference Range Interpretation Comments WHITE BLOOD CELL COUNT (BEAKER) (test code = 775) 3.0 K/ L 3.5- 10.5 L RED BLOOD CELL COUNT (BEAKER) (test code = 761) 2.52 M/ L 3.93-5 .22 L HEMOGLOBIN (BEAKER) (test code = 410) 8.7 GM/DL 11.2-15.7 L HEMATOCRIT (BEAKER) (test code = 411) 27.1 % 34.1-44.9 L MEAN CORPUSCULAR VOLUME (BEAKER) (test code = 753) 107.5 fL 79. 4-94.8 H MEAN CORPUSCULAR HEMOGLOBIN (BEAKER) (test code = 751) 34.5 pg 25.6-32.2 H MEAN CORPUSCULAR HEMOGLOBIN CONC (BEAKER) (test code = 752) 32.1 GM/DL 32.2-35.5 L RED CELL DISTRIBUTION WIDTH (BEAKER) (test code = 412) 21.4 % 11.7-14.4 H PLATELET COUNT (BEAKER) (test code = 756) 50 K/CU MM 150-450 L MEAN PLATELET VOLUME (BEAKER) (test code = 754) 10.1 fL 9.4-12 .3 NUCLEATED RED BLOOD CELLS (BEAKER) (test code = 413) 0 /100 WBC 0 -0 (CELLAVISION MANUAL DIFF)2020-02-25 07:21:00* Test Item Value Reference Range Interpretation Comments NEUTROPHILS - REL (CELLAVISION)(BEAKER) (test code = 2816) 99 % LYMPHOCYTES - REL (CELLAVISION)(BEAKER) (test code = 2817) 1 % NEUTROPHILS - ABS (CELLAVISION)(BEAKER) (test code = 2830) 2.97 K/ul 1.56-6.13 LYMPHOCYTES - ABS (CELLAVISION)(BEAKER) (test code = 2831) 0.03 K/ul 1.18-3.74 L TOTAL COUNTED (BEAKER) (test code = 1351) 100 WBC MORPHOLOGY (BEAKER) (test code = 487) Normal GIANT PLATELETS (BEAKER) (test code = 313) Present LARGE PLT(BEAKER) (test code = 2156) Present HYPOCHROMIA (BEAKER) (test code = 963) 1+ few ANISOCYTOSIS (BEAKER) (test code = 961) 1+ few MICROCYTES (BEAKER) (test code = 965) 1+ few POIKILOCYTES (BEAKER) (test code = 966) 1+ few SPHEROCYTES (BEAKER) (test code = 768) 1+ few OVALOCYTES (BEAKER) (test code = 477) 1+ few TEAR DROP CELLS (BEAKER) (test code = 481) 1+ few BASOPHILIC STIPPLING (BEAKER) (test code = 473) Present ARTIFACT (CELLAVISION)(BEAKER) (test code = 3432) Present PLATELET CONCENTRATION (CELLAVISION)(BEAKER) (test code = 3438) Dec reased Compotype Operator ID - Aixa García comments: Slide comments: Uric acid 2020-02-25 04:49:00* Test Item Value Reference Range Interpretation Comments Uric Acid (test code = 3084-1) 3.2 mg/dL 2.6-7.2 KO (test code = KO) Compotype Operator ID - WU L Lab Interpretation (test code = 82310-5) [id number] 04:49:00* Test Item Value Reference Range Interpretation Comments URIC ACID (BEAKER) (test code = 773) 3.2 mg/dL 2.6-7.2 Compotype Operator ID - WU [id number] 04:49:00* Test Item Value Reference Range Interpretation Comments MAGNESIUM (BEAKER) (test code = 627) 2.0 mg/dL 1.6-2.6 Compotype Operator ID - WU [id number] 04:49:00* Test Item Value Reference Range Interpretation Comments PHOSPHORUS (BEAKER) (test code = 604) 2.9 mg/dL 2.3-4.7 Compotype Operator ID - PIAYA LBASIC METABOLIC [id number] 04:49:00* Test Item Value Reference Range Interpretation Comments SODIUM (BEAKER) (test code = 381) 143 meq/L 136-145 POTASSIUM (BEAKER) (test code = 379) 4.4 meq/L 3.5-5.1 CHLORIDE (BEAKER) (test code = 382) 114 meq/L 98-107 H CO2 (BEAKER) (test code = 355) 21 meq/L 22-29 L BLOOD UREA NITROGEN (BEAKER) (test code = 354) 15 mg/dL 7-21 CREATININE (BEAKER) (test code = 358) 0.62 mg/dL 0.57-1.25 GLUCOSE RANDOM (BEAKER) (test code = 652) 141 mg/dL 70-105 H CALCIUM (BEAKER) (test code = 697) 8.1 mg/dL 8.4-10.2 L EGFR (BEAKER) (test code = 1092) 98 mL/min/1.73 sq m ESTIMATED GFR IS NOT ACCURATE CREATININE CLEARANCE IN PREDICTING GLOMERULAR FILTRATION RATE. ESTIMATED GFR IS NOT APPLICABLE FOR DIALYSIS PATIENTS. Compotype Operator ID - PIAYA LCBC W/PLT COUNT & AUTO [id number] 05:45:00* Test Item Value Reference Range Interpretation Comments WHITE BLOOD CELL COUNT (BEAKER) (test code = 775) 12.2 K/ L 3.5- 10.5 H RED BLOOD CELL COUNT (BEAKER) (test code = 761) 2.63 M/ L 3.93-5 .22 L HEMOGLOBIN (BEAKER) (test code = 410) 9.1 GM/DL 11.2-15.7 L HEMATOCRIT (BEAKER) (test code = 411) 28.0 % 34.1-44.9 L MEAN CORPUSCULAR VOLUME (BEAKER) (test code = 753) 106.5 fL 79. 4-94.8 H MEAN CORPUSCULAR HEMOGLOBIN (BEAKER) (test code = 751) 34.6 pg 25.6-32.2 H MEAN CORPUSCULAR HEMOGLOBIN CONC (BEAKER) (test code = 752) 32.5 GM/DL 32.2-35.5 RED CELL DISTRIBUTION WIDTH (BEAKER) (test code = 412) 21.7 % 11.7-14.4 H PLATELET COUNT (BEAKER) (test code = 756) 62 K/CU MM 150-450 L MEAN PLATELET VOLUME (BEAKER) (test code = 754) 10.5 fL 9.4-12 .3 NUCLEATED RED BLOOD CELLS (BEAKER) (test code = 413) 0 /100 WBC 0 -0 NEUTROPHILS RELATIVE PERCENT (BEAKER) (test code = 429) 93 % LYMPHOCYTES RELATIVE PERCENT (BEAKER) (test code = 430) 1 % MONOCYTES RELATIVE PERCENT (BEAKER) (test code = 431) 5 % EOSINOPHILS RELATIVE PERCENT (BEAKER) (test code = 432) 0 % BASOPHILS RELATIVE PERCENT (BEAKER) (test code = 437) 0 % NEUTROPHILS ABSOLUTE COUNT (BEAKER) (test code = 670) 11.39 K/ L 1.56-6.13 H LYMPHOCYTES ABSOLUTE COUNT (BEAKER) (test code = 414) 0.12 K/ L 1.18-3.74 L MONOCYTES ABSOLUTE COUNT (BEAKER) (test code = 415) 0.59 K/ L 0. 24-0.36 H EOSINOPHILS ABSOLUTE COUNT (BEAKER) (test code = 416) 0.00 K/ L 0.04-0.36 L BASOPHILS ABSOLUTE COUNT (BEAKER) (test code = 417) 0.01 K/ L 0. 01-0.08 IMMATURE GRANULOCYTES-RELATIVE PERCENT (BEAKER) (test code = 2801) 1 % 0-1 URIC [id number] 05:39:00* Test Item Value Reference Range Interpretation Comments URIC ACID (BEAKER) (test code = 773) 3.9 mg/dL 2.6-7.2 Compotype Operator ID - PIAYA [id number] 05:39:00* Test Item Value Reference Range Interpretation Comments MAGNESIUM (BEAKER) (test code = 627) 2.2 mg/dL 1.6-2.6 Compotype Operator ID - PIAYA [id number] 05:39:00* Test Item Value Reference Range Interpretation Comments PHOSPHORUS (BEAKER) (test code = 604) 3.6 mg/dL 2.3-4.7 Compotype Operator ID - PIAYA LBASIC METABOLIC [id number] 05:39:00* Test Item Value Reference Range Interpretation Comments SODIUM (BEAKER) (test code = 381) 143 meq/L 136-145 POTASSIUM (BEAKER) (test code = 379) 4.4 meq/L 3.5-5.1 CHLORIDE (BEAKER) (test code = 382) 114 meq/L 98-107 H CO2 (BEAKER) (test code = 355) 23 meq/L 22-29 BLOOD UREA NITROGEN (BEAKER) (test code = 354) 19 mg/dL 7-21 CREATININE (BEAKER) (test code = 358) 0.76 mg/dL 0.57-1.25 GLUCOSE RANDOM (BEAKER) (test code = 652) 126 mg/dL 70-105 H CALCIUM (BEAKER) (test code = 697) 8.2 mg/dL 8.4-10.2 L EGFR (BEAKER) (test code = 1092) 77 mL/min/1.73 sq m ESTIMATED GFR IS NOT ACCURATE CREATININE CLEARANCE IN PREDICTING GLOMERULAR FILTRATION RATE. ESTIMATED GFR IS NOT APPLICABLE FOR DIALYSIS PATIENTS. Compotype Operator ID - PIAYA LCBC W/PLT COUNT & AUTO [id number] 12:09:00* Test Item Value Reference Range Interpretation Comments WHITE BLOOD CELL COUNT (BEAKER) (test code = 775) 3.6 K/ L 3.5- 10.5 RED BLOOD CELL COUNT (BEAKER) (test code = 761) 3.03 M/ L 3.93-5 .22 L HEMOGLOBIN (BEAKER) (test code = 410) 10.2 GM/DL 11.2-15.7 L HEMATOCRIT (BEAKER) (test code = 411) 32.0 % 34.1-44.9 L MEAN CORPUSCULAR VOLUME (BEAKER) (test code = 753) 105.6 fL 79. 4-94.8 H MEAN CORPUSCULAR HEMOGLOBIN (BEAKER) (test code = 751) 33.7 pg 25.6-32.2 H MEAN CORPUSCULAR HEMOGLOBIN CONC (BEAKER) (test code = 752) 31.9 GM/DL 32.2-35.5 L RED CELL DISTRIBUTION WIDTH (BEAKER) (test code = 412) 21.7 % 11.7-14.4 H PLATELET COUNT (BEAKER) (test code = 756) 86 K/CU MM 150-450 L MEAN PLATELET VOLUME (BEAKER) (test code = 754) 10.3 fL 9.4-12 .3 NUCLEATED RED BLOOD CELLS (BEAKER) (test code = 413) 1 /100 WBC 0 -0 H (CELLAVISION MANUAL DIFF)2020-02-23 12:09:00* Test Item Value Reference Range Interpretation Comments NEUTROPHILS - REL (CELLAVISION)(BEAKER) (test code = 2816) 88 % LYMPHOCYTES - REL (CELLAVISION)(BEAKER) (test code = 2817) 4 % MONOCYTES - REL (CELLAVISION)(BEAKER) (test code = 2818) 2 % BANDS - REL (CELLAVISION)(BEAKER) (test code = 2826) 6 % 0 -10 NEUTROPHILS - ABS (CELLAVISION)(BEAKER) (test code = 2830) 3.17 K/ul 1.56-6.13 LYMPHOCYTES - ABS (CELLAVISION)(BEAKER) (test code = 2831) 0.14 K/ul 1.18-3.74 L MONOCYTES - ABS (CELLAVISION)(BEAKER) (test code = 2832) 0.07 K/uL 0.24-0.36 L BANDS - ABS (CELLAVISION)(BEAKER) (test code = 2840) 0.22 K/uL 0 .00-0.80 TOTAL COUNTED (BEAKER) (test code = 1351) 100 MANUAL NRBC PER 100 CELLS (BEAKER) (test code = 1353) 1 /100 WBC 0-0 H WBC MORPHOLOGY (BEAKER) (test code = 487) Normal PLT MORPHOLOGY (BEAKER) (test code = 486) Normal POLYCHROMATOPHILLIC RBCS(BEAKER) (test code = 478) 2+ moderate ANISOCYTOSIS (BEAKER) (test code = 961) 2+ moderate MICROCYTES (BEAKER) (test code = 965) 1+ few MACROCYTES (BEAKER) (test code = 964) 3+ many POIKILOCYTES (BEAKER) (test code = 966) 2+ moderate ELLIPTOCYTES (BEAKER) (test code = 962) 1+ few OVALOCYTES (BEAKER) (test code = 477) 2+ moderate TEAR DROP CELLS (BEAKER) (test code = 481) 1+ few ARTIFACT (CELLAVISION)(BEAKER) (test code = 3432) Present PLATELET CONCENTRATION (CELLAVISION)(BEAKER) (test code = 3438) Dec reased Compotype Operator ID - Janeth Daniels comments: Slide comments: [id number] 07:35:00* Test Item Value Reference Range Interpretation Comments MAGNESIUM (BEAKER) (test code = 627) 2.1 mg/dL 1.6-2.6 Specimen slightly hemolyzed Compotype Operator ID - [id number] 07:35:00* Test Item Value Reference Range Interpretation Comments PHOSPHORUS (BEAKER) (test code = 604) 3.7 mg/dL 2.3-4.7 Specimen slightly hemolyzed Compotype Operator ID - EDASIURIC [id number] 07:35:00* Test Item Value Reference Range Interpretation Comments URIC ACID (BEAKER) (test code = 773) 4.7 mg/dL 2.6-7.2 Specimen slightly hemolyzed Compotype Operator ID - EDASIBASIC METABOLIC [id number] 07:35:00* Test Item Value Reference Range Interpretation Comments SODIUM (BEAKER) (test code = 381) 144 meq/L 136-145 POTASSIUM (BEAKER) (test code = 379) 4.5 meq/L 3.5-5.1 Specimen slightly hemolyzed CHLORIDE (BEAKER) (test code = 382) 113 meq/L 98-107 H CO2 (BEAKER) (test code = 355) 23 meq/L 22-29 BLOOD UREA NITROGEN (BEAKER) (test code = 354) 18 mg/dL 7-21 CREATININE (BEAKER) (test code = 358) 0.74 mg/dL 0.57-1.25 Specimen slightly hemolyzed GLUCOSE RANDOM (BEAKER) (test code = 652) 136 mg/dL 70-105 H CALCIUM (BEAKER) (test code = 697) 8.9 mg/dL 8.4-10.2 EGFR (BEAKER) (test code = 1092) 80 mL/min/1.73 sq m ESTIMATED GFR IS NOT ACCURATE CREATININE CLEARANCE IN PREDICTING GLOMERULAR FILTRATION RATE. ESTIMATED GFR IS NOT APPLICABLE FOR DIALYSIS PATIENTS. Compotype Operator ID - [id number] 17:03:00* Test Item Value Reference Range Interpretation Comments MAGNESIUM (BEAKER) (test code = 627) 2.3 mg/dL 1.6-2.6 Compotype Operator ID - BSHEPATIC FUNCTION [id number] 16:32:00* Test Item Value Reference Range Interpretation Comments TOTAL PROTEIN (BEAKER) (test code = 770) 7.0 gm/dL 6.0-8.3 ALBUMIN (BEAKER) (test code = 1145) 4.5 g/dL 3.5-5.0 BILIRUBIN TOTAL (BEAKER) (test code = 377) 0.3 mg/dL 0.2-1.2 BILIRUBIN DIRECT (BEAKER) (test code = 706) 0.2 mg/dL 0.1-0.5 ALKALINE PHOSPHATASE (BEAKER) (test code = 346) 88 U/L 40-150 AST (SGOT) (BEAKER) (test code = 353) 22 U/L 5-34 ALT (SGPT) (BEAKER) (test code = 347) 21 U/L 6-55 Compotype Operator ID - BSBASIC METABOLIC [id number] 16:32:00* Test Item Value Reference Range Interpretation Comments SODIUM (BEAKER) (test code = 381) 144 meq/L 136-145 POTASSIUM (BEAKER) (test code = 379) 4.7 meq/L 3.5-5.1 CHLORIDE (BEAKER) (test code = 382) 107 meq/L 98-107 CO2 (BEAKER) (test code = 355) 28 meq/L 22-29 BLOOD UREA NITROGEN (BEAKER) (test code = 354) 19 mg/dL 7-21 CREATININE (BEAKER) (test code = 358) 0.84 mg/dL 0.57-1.25 GLUCOSE RANDOM (BEAKER) (test code = 652) 84 mg/dL 70-105 CALCIUM (BEAKER) (test code = 697) 9.3 mg/dL 8.4-10.2 EGFR (BEAKER) (test code = 1092) 69 mL/min/1.73 sq m ESTIMATED GFR IS NOT ACCURATE CREATININE CLEARANCE IN PREDICTING GLOMERULAR FILTRATION RATE. ESTIMATED GFR IS NOT APPLICABLE FOR DIALYSIS PATIENTS. Compotype Operator ID - BSCBC W/PLT COUNT & AUTO [id number] 16:18:00* Test Item Value Reference Range Interpretation Comments WHITE BLOOD CELL COUNT (BEAKER) (test code = 775) 4.5 K/ L 3.5- 10.5 RED BLOOD CELL COUNT (BEAKER) (test code = 761) 2.92 M/ L 3.93-5 .22 L HEMOGLOBIN (BEAKER) (test code = 410) 9.9 GM/DL 11.2-15.7 L HEMATOCRIT (BEAKER) (test code = 411) 30.9 % 34.1-44.9 L MEAN CORPUSCULAR VOLUME (BEAKER) (test code = 753) 105.8 fL 79. 4-94.8 H MEAN CORPUSCULAR HEMOGLOBIN (BEAKER) (test code = 751) 33.9 pg 25.6-32.2 H MEAN CORPUSCULAR HEMOGLOBIN CONC (BEAKER) (test code = 752) 32.0 GM/DL 32.2-35.5 L RED CELL DISTRIBUTION WIDTH (BEAKER) (test code = 412) 21.6 % 11.7-14.4 H PLATELET COUNT (BEAKER) (test code = 756) 76 K/CU MM 150-450 L MEAN PLATELET VOLUME (BEAKER) (test code = 754) 10.3 fL 9.4-12 .3 NUCLEATED RED BLOOD CELLS (BEAKER) (test code = 413) 1 /100 WBC 0 -0 H NEUTROPHILS RELATIVE PERCENT (BEAKER) (test code = 429) 56 % LYMPHOCYTES RELATIVE PERCENT (BEAKER) (test code = 430) 15 % MONOCYTES RELATIVE PERCENT (BEAKER) (test code = 431) 28 % EOSINOPHILS RELATIVE PERCENT (BEAKER) (test code = 432) 0 % BASOPHILS RELATIVE PERCENT (BEAKER) (test code = 437) 0 % NEUTROPHILS ABSOLUTE COUNT (BEAKER) (test code = 670) 2.51 K/ L 1.56-6.13 LYMPHOCYTES ABSOLUTE COUNT (BEAKER) (test code = 414) 0.66 K/ L 1.18-3.74 L MONOCYTES ABSOLUTE COUNT (BEAKER) (test code = 415) 1.25 K/ L 0. 24-0.36 H EOSINOPHILS ABSOLUTE COUNT (BEAKER) (test code = 416) 0.01 K/ L 0.04-0.36 L BASOPHILS ABSOLUTE COUNT (BEAKER) (test code = 417) 0.01 K/ L 0. 01-0.08 IMMATURE GRANULOCYTES-RELATIVE PERCENT (BEAKER) (test code = 2801) 1 % 0-1 Prepare platelet pheresis, 1 [id number] 10:50:00* Test Item Value Reference Range Interpretation Comments Product name (test code = 25) Apheresis Platelet ACDA LRIRR #1 Unit number (test code = 1371625) [id number] Product code (test code = 3092) [id number] Dispense status (test code = 24) Transfused Blood expiration date (test code = 302) [id number] Blood type code (test code = 308) 6203 Blood type (test code = 1314) A POSITIVE Compatibility (test code = 6400) Not required [place] [id number] 21:00:00* Test Item Value Reference Range Interpretation Comments CULTURE (BEAKER) (test code = 1095) No growth in 5 days BLOOD [id number] 21:00:00* Test Item Value Reference Range Interpretation Comments CULTURE (BEAKER) (test code = 1095) No growth in 5 days CBC W/PLT COUNT & AUTO [id number] 10:01:00* Test Item Value Reference Range Interpretation Comments WHITE BLOOD CELL COUNT (BEAKER) (test code = 775) 2.4 K/ L 3.5- 10.5 L RED BLOOD CELL COUNT (BEAKER) (test code = 761) 2.23 M/ L 3.93-5 .22 L HEMOGLOBIN (BEAKER) (test code = 410) 7.3 GM/DL 11.2-15.7 L HEMATOCRIT (BEAKER) (test code = 411) 21.8 % 34.1-44.9 L MEAN CORPUSCULAR VOLUME (BEAKER) (test code = 753) 97.8 fL 79. 4-94.8 H MEAN CORPUSCULAR HEMOGLOBIN (BEAKER) (test code = 751) 32.7 pg 25.6-32.2 H MEAN CORPUSCULAR HEMOGLOBIN CONC (BEAKER) (test code = 752) 33.5 GM/DL 32.2-35.5 RED CELL DISTRIBUTION WIDTH (BEAKER) (test code = 412) 15.8 % 11.7-14.4 H PLATELET COUNT (BEAKER) (test code = 756) 35 K/CU MM 150-450 L MEAN PLATELET VOLUME (BEAKER) (test code = 754) 10.3 fL 9.4-12 .3 NUCLEATED RED BLOOD CELLS (BEAKER) (test code = 413) 0 /100 WBC 0 -0 (CELLAVISION MANUAL DIFF)[id number] 10:01:00* Test Item Value Reference Range Interpretation Comments NEUTROPHILS - REL (CELLAVISION)(BEAKER) (test code = 2816) 64 % LYMPHOCYTES - REL (CELLAVISION)(BEAKER) (test code = 2817) 10 % MONOCYTES - REL (CELLAVISION)(BEAKER) (test code = 2818) 17 % EOSINOPHILS - REL (CELLAVISION)(BEAKER) (test code = 2819) 1 % BANDS - REL (CELLAVISION)(BEAKER) (test code = 2826) 4 % 0 -10 BLASTS - REL (CELLAVISION)(BEAKER) (test code = 2827) 1 % 0-0 H ATYPICAL LYMPHOCYTES - REL (CELLAVISION)(BEAKER) (test code = 2829) 3 % 0-0 H NEUTROPHILS - ABS (CELLAVISION)(BEAKER) (test code = 2830) 1.54 K/ul 1.56-6.13 L LYMPHOCYTES - ABS (CELLAVISION)(BEAKER) (test code = 2831) 0.24 K/ul 1.18-3.74 L MONOCYTES - ABS (CELLAVISION)(BEAKER) (test code = 2832) 0.41 K/uL 0.24-0.36 H EOSINOPHILS - ABS (CELLAVISION)(BEAKER) (test code = 2834) 0.02 K/uL 0.04-0.36 L BANDS - ABS (CELLAVISION)(BEAKER) (test code = 2840) 0.10 K/uL 0 .00-0.80 BLASTS - ABS (CELLAVISION)(BEAKER) (test code = 2845) 0.02 K/uL 0.00-0.00 H ATYPICAL LYMPHOCYTES - ABS (CELLAVISION)(BEAKER) (test code = 5138) 0.07 K/uL 0.00-0.00 H TOTAL COUNTED (BEAKER) (test code = 1351) 100 PLT MORPHOLOGY (BEAKER) (test code = 486) Normal DOHLE BODIES (BEAKER) (test code = 359) Present TOXIC GRANULATION (BEAKER) (test code = 771) Present VACUOLATED NEUTROPHILS (BEAKER) (test code = 483) Present ANISOCYTOSIS (BEAKER) (test code = 961) 1+ few MICROCYTES (BEAKER) (test code = 965) 1+ few POIKILOCYTES (BEAKER) (test code = 966) 1+ few OVALOCYTES (BEAKER) (test code = 477) 1+ few TEAR DROP CELLS (BEAKER) (test code = 481) 1+ few ARTIFACT (CELLAVISION)(BEAKER) (test code = 3432) Present PLATELET CONCENTRATION (CELLAVISION)(BEAKER) (test code = 3438) Dec reased Compotype Operator ID - [id number] ID - Izabela Hanna comments: Slide comments: [id number] 09:15:00* Test Item Value Reference Range Interpretation Comments MAGNESIUM (BEAKER) (test code = 627) 1.9 mg/dL 1.6-2.6 Compotype Operator ID - AIXA FBASIC METABOLIC [id number] 09:15:00* Test Item Value Reference Range Interpretation Comments SODIUM (BEAKER) (test code = 381) 140 meq/L 136-145 POTASSIUM (BEAKER) (test code = 379) 3.7 meq/L 3.5-5.1 CHLORIDE (BEAKER) (test code = 382) 111 meq/L 98-107 H CO2 (BEAKER) (test code = 355) 20 meq/L 22-29 L BLOOD UREA NITROGEN (BEAKER) (test code = 354) 13 mg/dL 7-21 CREATININE (BEAKER) (test code = 358) 0.72 mg/dL 0.57-1.25 GLUCOSE RANDOM (BEAKER) (test code = 652) 86 mg/dL 70-105 CALCIUM (BEAKER) (test code = 697) 8.3 mg/dL 8.4-10.2 L EGFR (BEAKER) (test code = 1092) 82 mL/min/1.73 sq m ESTIMATED GFR IS NOT ACCURATE CREATININE CLEARANCE IN PREDICTING GLOMERULAR FILTRATION RATE. ESTIMATED GFR IS NOT APPLICABLE FOR DIALYSIS PATIENTS. Compotype Operator ID - AIXA FPrepare Leuko-Red & Irrad [id number] 23:54:00* Test Item Value Reference Range Interpretation Comments Unit ABO (test code = 6400091) O Pos UNIT NUMBER (test code = 934-0) [id number] Status (test code = 7404685) TX_TIMEINCHART Blood Bank Product (test code = 2263) RED BLOOD CELLS PRODUCT CODE (test code = 933-2) [id number] CROSSMATCH (test code = 2264) [facility], [id number] 11:08:00* Test Item Value Reference Range Interpretation Comments VANCOMYCIN TROUGH (BEAKER) (test code = 522) 10.4 ug/mL 10.0-20.0 Compotype Operator ID - AAHAMIDCBC W/PLT COUNT & AUTO [id number] 09:25:00* Test Item Value Reference Range Interpretation Comments WHITE BLOOD CELL COUNT (BEAKER) (test code = 775) 0.7 K/ L 3.5- 10.5 LL RED BLOOD CELL COUNT (BEAKER) (test code = 761) 2.51 M/ L 3.93-5 .22 L HEMOGLOBIN (BEAKER) (test code = 410) 7.9 GM/DL 11.2-15.7 L HEMATOCRIT (BEAKER) (test code = 411) 24.1 % 34.1-44.9 L MEAN CORPUSCULAR VOLUME (BEAKER) (test code = 753) 96.0 fL 79. 4-94.8 H MEAN CORPUSCULAR HEMOGLOBIN (BEAKER) (test code = 751) 31.5 pg 25.6-32.2 MEAN CORPUSCULAR HEMOGLOBIN CONC (BEAKER) (test code = 752) 32.8 GM/DL 32.2-35.5 RED CELL DISTRIBUTION WIDTH (BEAKER) (test code = 412) 16.1 % 11.7-14.4 H PLATELET COUNT (BEAKER) (test code = 756) 57 K/CU MM 150-450 L MEAN PLATELET VOLUME (BEAKER) (test code = 754) 9.8 fL 9.4-12 .3 NUCLEATED RED BLOOD CELLS (BEAKER) (test code = 413) 0 /100 WBC 0 -0 (MANUAL DIFFERENTIAL)2020-02-07 09:25:00* Test Item Value Reference Range Interpretation Comments NEUTROPHILS - REL (DIFF) (BEAKER) (test code = 1359) 21 % LYMPHOCYTES - REL (DIFF) (BEAKER) (test code = 1360) 18 % MONOCYTES - REL (DIFF) (BEAKER) (test code = 1361) 47 % BANDS - REL (DIFF) (BEAKER) (test code = 1348) 14 % 0-10 H NEUTROPHILS - ABS (DIFF) (BEAKER) (test code = 1365) 0.15 K/ L 1 .80-8.00 L LYMPHOCYTES - ABS (DIFF) (BEAKER) (test code = 1366) 0.13 K/ L 1 .48-4.50 L MONOCYTES - ABS (DIFF) (BEAKER) (test code = 1367) 0.33 K/ L 0.0 0-1.30 BANDS-ABS (DIFF) (BEAKER) (test code = 1349) 0.1 K/ L 0.0-0.8 TOTAL COUNTED (BEAKER) (test code = 1351) 100 BANDS + SEGMENTED NEUTROPHILS (BEAKER) (test code = 1352) 0.25 PLT MORPHOLOGY (BEAKER) (test code = 486) Normal RBC MORPHOLOGY (BEAKER) (test code = 762) Normal ATYPICAL LYMPHS(BEAKER) (test code = 4568) Present [id number] 06:45:00* Test Item Value Reference Range Interpretation Comments MAGNESIUM (BEAKER) (test code = 627) 1.9 mg/dL 1.6-2.6 Compotype Operator ID - EDASIBASIC METABOLIC [id number] 06:45:00* Test Item Value Reference Range Interpretation Comments SODIUM (BEAKER) (test code = 381) 139 meq/L 136-145 POTASSIUM (BEAKER) (test code = 379) 3.7 meq/L 3.5-5.1 CHLORIDE (BEAKER) (test code = 382) 109 meq/L 98-107 H CO2 (BEAKER) (test code = 355) 21 meq/L 22-29 L BLOOD UREA NITROGEN (BEAKER) (test code = 354) 11 mg/dL 7-21 CREATININE (BEAKER) (test code = 358) 0.64 mg/dL 0.57-1.25 GLUCOSE RANDOM (BEAKER) (test code = 652) 91 mg/dL 70-105 CALCIUM (BEAKER) (test code = 697) 8.8 mg/dL 8.4-10.2 EGFR (BEAKER) (test code = 1092) 94 mL/min/1.73 sq m ESTIMATED GFR IS NOT ACCURATE CREATININE CLEARANCE IN PREDICTING GLOMERULAR FILTRATION RATE. ESTIMATED GFR IS NOT APPLICABLE FOR DIALYSIS PATIENTS. Compotype Operator ID - EDASI(CELLAVISION MANUAL DIFF)2020-02-06 19:39:00* Test Item Value Reference Range Interpretation Comments LYMPHOCYTES - REL (CELLAVISION)(BEAKER) (test code = 2817) 73 % MONOCYTES - REL (CELLAVISION)(BEAKER) (test code = 2818) 27 % LYMPHOCYTES - ABS (CELLAVISION)(BEAKER) (test code = 2831) 0.07 K/ul 1.18-3.74 L MONOCYTES - ABS (CELLAVISION)(BEAKER) (test code = 2832) 0.03 K/uL 0.24-0.36 L TOTAL COUNTED (BEAKER) (test code = 1351) 100 SMUDGE CELLS (BEAKER) (test code = 1371) Present GIANT PLATELETS (BEAKER) (test code = 313) Present POLYCHROMATOPHILLIC RBCS(BEAKER) (test code = 478) 1+ few ANISOCYTOSIS (BEAKER) (test code = 961) 1+ few MICROCYTES (BEAKER) (test code = 965) 1+ few POIKILOCYTES (BEAKER) (test code = 966) 1+ few OVALOCYTES (BEAKER) (test code = 477) 1+ few ARTIFACT (CELLAVISION)(BEAKER) (test code = 3432) Present PLATELET CONCENTRATION (CELLAVISION)(BEAKER) (test code = 3438) Dec reased Compotype Operator ID - [id number] ID - deana Carmona comments: Slide comments: CBC W/PLT COUNT & AUTO [id number] 14:40:00* Test Item Value Reference Range Interpretation Comments WHITE BLOOD CELL COUNT (BEAKER) (test code = 775) 0.1 K/ L 3.5- 10.5 LL RED BLOOD CELL COUNT (BEAKER) (test code = 761) 1.94 M/ L 3.93-5 .22 L HEMOGLOBIN (BEAKER) (test code = 410) 6.5 GM/DL 11.2-15.7 L HEMATOCRIT (BEAKER) (test code = 411) 19.3 % 34.1-44.9 L MEAN CORPUSCULAR VOLUME (BEAKER) (test code = 753) 99.5 fL 79. 4-94.8 H MEAN CORPUSCULAR HEMOGLOBIN (BEAKER) (test code = 751) 33.5 pg 25.6-32.2 H MEAN CORPUSCULAR HEMOGLOBIN CONC (BEAKER) (test code = 752) 33.7 GM/DL 32.2-35.5 RED CELL DISTRIBUTION WIDTH (BEAKER) (test code = 412) 15.9 % 11.7-14.4 H PLATELET COUNT (BEAKER) (test code = 756) 96 K/CU MM 150-450 L Discordant PLT results compared to previous results; clinical correlation required. MEAN PLATELET VOLUME (BEAKER) (test code = 754) 10.0 fL 9.4-12 .3 NUCLEATED RED BLOOD CELLS (BEAKER) (test code = 413) 0 /100 WBC 0 -0 [id number] 07:59:00* Test Item Value Reference Range Interpretation Comments MAGNESIUM (BEAKER) (test code = 627) 2.1 mg/dL 1.6-2.6 Specimen slightly hemolyzed Compotype Operator ID - PIAYA LBASIC METABOLIC [id number] 07:59:00* Test Item Value Reference Range Interpretation Comments SODIUM (BEAKER) (test code = 381) 136 meq/L 136-145 POTASSIUM (BEAKER) (test code = 379) 4.0 meq/L 3.5-5.1 Specimen slightly hemolyzed CHLORIDE (BEAKER) (test code = 382) 107 meq/L 98-107 CO2 (BEAKER) (test code = 355) 21 meq/L 22-29 L BLOOD UREA NITROGEN (BEAKER) (test code = 354) 18 mg/dL 7-21 CREATININE (BEAKER) (test code = 358) 0.68 mg/dL 0.57-1.25 Specimen slightly hemolyzed GLUCOSE RANDOM (BEAKER) (test code = 652) 97 mg/dL 70-105 CALCIUM (BEAKER) (test code = 697) 8.8 mg/dL 8.4-10.2 EGFR (BEAKER) (test code = 1092) 88 mL/min/1.73 sq m ESTIMATED GFR IS NOT ACCURATE CREATININE CLEARANCE IN PREDICTING GLOMERULAR FILTRATION RATE. ESTIMATED GFR IS NOT APPLICABLE FOR DIALYSIS PATIENTS. Compotype Operator ID - WU LURINALYSIS W/ REFLEX URINE [id number] 06:09:00* Test Item Value Reference Range Interpretation Comments COLOR (BEAKER) (test code = 470) Yellow CLARITY (BEAKER) (test code = 469) Clear SPECIFIC GRAVITY UA (BEAKER) (test code = 468) 1.031 1.001-1 .035 PH UA (BEAKER) (test code = 467) 6.5 5.0-8.0 PROTEIN UA (BEAKER) (test code = 464) Negative Negative GLUCOSE UA (BEAKER) (test code = 365) Negative Negative KETONES UA (BEAKER) (test code = 371) Negative Negative BILIRUBIN UA (BEAKER) (test code = 462) Negative Negative BLOOD UA (BEAKER) (test code = 461) Negative Negative NITRITE UA (BEAKER) (test code = 465) Negative Negative LEUKOCYTE ESTERASE UA (BEAKER) (test code = 466) Negative Negat neetu UROBILINOGEN UA (BEAKER) (test code = 463) 0.2 mg/dL 0.2-1.0 RBC UA (BEAKER) (test code = 519) 0 /HPF WBC UA (BEAKER) (test code = 520) 1 /HPF BACTERIA (BEAKER) (test code = 517) Rare SQUAMOUS EPITHELIAL (BEAKER) (test code = 516) < /HPF SOURCE(BEAKER) (test code = 2795) Compotype Operator ID - [auto]Compotype Operator ID - hankCT, MAXILLOFACIAL AREA, [id number] 20:03:00Reason for exam:->b/l epistaxisWhat is the patient's sedation requirement?->No SedationFINAL REPORT CT, MAXILLOFACIAL AREA, CONTRAST CLINICAL INDICATION: Unlisted Reason for Examb/l epistaxis COMPARISON: CT 10/11/2019 TECHNIQUE: Postcontrast CT of the maxillofacial area. Coronal and sagittal reconstructions were performed. DOSE REDUCTION: Dose modulation, iterative reconstruction, and/or weight-based adjustment of the mA/kV was utilized to reduce the radiation dose to as low as reasonably achievable. FINDINGS: Maxilla: Intact. Pterygoid plates are intact.Paranasal sinuses: Clear.Mastoid air cells and middle ear cavities: Clear.Nasal bones: Intact nasal bones and septum. Mandible: Intact. Temporomandibular joints normally aligned.Dental structures: No acute abnormality. Orbits: Orbital roof, floor, medial and lateral abdi intact.Globes: Globes and extraocular muscles intact.Retrobulbar spaces: Unremarkable. Superficial soft tissues: Unremarkable. IMPRESSION:Unremarkable CT of the face. Signed: Joey Murillo Verified Date/Time: 02/05/2020 20:03:33 IC ACID, [id number] 19:10:00* Test Item Value Reference Range Interpretation Comments LACTATE BLOOD VENOUS (2) (BEAKER) (test code = 2872) 0.61 mmol/L 0 .50-2.20 Compotype Operator ID - BSBASIC METABOLIC [id number] 18:48:00* Test Item Value Reference Range Interpretation Comments SODIUM (BEAKER) (test code = 381) 135 meq/L 136-145 L POTASSIUM (BEAKER) (test code = 379) 4.2 meq/L 3.5-5.1 CHLORIDE (BEAKER) (test code = 382) 104 meq/L 98-107 CO2 (BEAKER) (test code = 355) 21 meq/L 22-29 L BLOOD UREA NITROGEN (BEAKER) (test code = 354) 25 mg/dL 7-21 H CREATININE (BEAKER) (test code = 358) 0.76 mg/dL 0.57-1.25 GLUCOSE RANDOM (BEAKER) (test code = 652) 108 mg/dL 70-105 H CALCIUM (BEAKER) (test code = 697) 9.8 mg/dL 8.4-10.2 EGFR (BEAKER) (test code = 1092) 77 mL/min/1.73 sq m ESTIMATED GFR IS NOT ACCURATE CREATININE CLEARANCE IN PREDICTING GLOMERULAR FILTRATION RATE. ESTIMATED GFR IS NOT APPLICABLE FOR DIALYSIS PATIENTS. Compotype Operator ID - BS(CELLAVISION MANUAL DIFF)2020-02-05 17:16:00* Test Item Value Reference Range Interpretation Comments LYMPHOCYTES - REL (CELLAVISION)(BEAKER) (test code = 2817) 70 % MONOCYTES - REL (CELLAVISION)(BEAKER) (test code = 2818) 29 % ATYPICAL LYMPHOCYTES - REL (CELLAVISION)(BEAKER) (test code = 2829) 1 % 0-0 H LYMPHOCYTES - ABS (CELLAVISION)(BEAKER) (test code = 2831) 0.30 K/ul 1.18-3.74 L MONOCYTES - ABS (CELLAVISION)(BEAKER) (test code = 2832) 0.13 K/uL 0.24-0.36 L ATYPICAL LYMPHOCYTES - ABS (CELLAVISION)(BEAKER) (test code = 2858) 0.00 K/uL 0.00-0.00 TOTAL COUNTED (BEAKER) (test code = 1351) 23 WBC MORPHOLOGY (BEAKER) (test code = 487) Normal PLT MORPHOLOGY (BEAKER) (test code = 486) Normal ANISOCYTOSIS (BEAKER) (test code = 961) 1+ few MACROCYTES (BEAKER) (test code = 964) 1+ few PLATELET CONCENTRATION (CELLAVISION)(BEAKER) (test code = 3438) Dec reased Compotype Operator ID - [id number], CHEST, 1 VIEW, NON [id number] 16:41:00Reason for exam:->SEPSISShould this be performed at the bedside?->YesFINAL REPORT History: Sepsis Comparison: Chest CT of 01/26/2020 Findings: There are curvilinear opacities in the right perihilar region and left suprahilar region which are similar to the most recent prior chest CT of 01/26/2020, likely reflecting mild residual pneumonitis bilaterally with areas of developing lung parenchymal scarring. A right PICC line is present, with its t ip in the SVC region No new pulmonary opacities are visualized. No pleural effus ions or pneumothorax. The heart shadow is normal in size. The thoracic aorta is mildly tortuous. No skeletal abnormalities are visualized. Impression: Unchanged bilateral pulmonary opacities suggestive of mild bilateral residual pneumonitis . Signed: Elisha Esqueda Verified Date/Time: 02/05/2020 16:41:46 Reading Location: [facility] Radiology Reading Room ICAL [id number] 16:20:48Nakita Lincoln DO 02/05/2020 5:06 PMCritical CarePerformed by: Nakita Lincoln DOAuthorized by: Nakita Lincoln DO Total critical care time: 45 minutesCr itical care time was exclusive of separately billable procedures and treating ot her patients.Critical care was necessary to treat or prevent imminent or life-th reatening deterioration of the following conditions: circulatory failure. [facility] W/PLT COUNT & AUTO [id number] 15:51:00* Test Item Value Reference Range Interpretation Comments WHITE BLOOD CELL COUNT (BEAKER) (test code = 775) 0.1 K/ L 3.5- 10.5 LL RED BLOOD CELL COUNT (BEAKER) (test code = 761) 2.70 M/ L 3.93-5 .22 L HEMOGLOBIN (BEAKER) (test code = 410) 8.9 GM/DL 11.2-15.7 L HEMATOCRIT (BEAKER) (test code = 411) 26.1 % 34.1-44.9 L MEAN CORPUSCULAR VOLUME (BEAKER) (test code = 753) 96.7 fL 79. 4-94.8 H MEAN CORPUSCULAR HEMOGLOBIN (BEAKER) (test code = 751) 33.0 pg 25.6-32.2 H MEAN CORPUSCULAR HEMOGLOBIN CONC (BEAKER) (test code = 752) 34.1 GM/DL 32.2-35.5 RED CELL DISTRIBUTION WIDTH (BEAKER) (test code = 412) 15.9 % 11.7-14.4 H PLATELET COUNT (BEAKER) (test code = 756) 1 K/CU MM 150-450 LL MEAN PLATELET VOLUME (BEAKER) (test code = 754) Unable to report due to abnormal Platelet population distribution. NUCLEATED RED BLOOD CELLS (BEAKER) (test code = 413) 0 /100 WBC 0 -0 PROTHROMBIN TIME/[id number] 15:48:00* Test Item Value Reference Range Interpretation Comments PROTIME (BEAKER) (test code = 759) 14.0 seconds 11.9-14.2 INR (BEAKER) (test code = 370) 1.11 <=5.90 Effective 10/25/2018: PT Reference Range ChangeNew: 11.9-14.2 Previous: 11.7-14. 7RECOMMENDED COUMADIN/WARFARIN INR THERAPY RANGESSTANDARD DOSE: 2.0-3.0 Include s: PROPHYLAXIS for venous thrombosis, systemic embolization; TREATMENT for venou s thrombosis and/or pulmonary embolus.HIGH RISK: Target INR is 2.5-3.5 for patie nts wiht mechanical heart valves.CBC W/PLT COUNT & AUTO [id number] 14:34:00* Test Item Value Reference Range Interpretation Comments WHITE BLOOD CELL COUNT (BEAKER) (test code = 775) 1.4 K/ L 3.5- 10.5 L RED BLOOD CELL COUNT (BEAKER) (test code = 761) 2.90 M/ L 3.93-5 .22 L HEMOGLOBIN (BEAKER) (test code = 410) 9.5 GM/DL 11.2-15.7 L HEMATOCRIT (BEAKER) (test code = 411) 29.9 % 34.1-44.9 L MEAN CORPUSCULAR VOLUME (BEAKER) (test code = 753) 103.1 fL 79. 4-94.8 H MEAN CORPUSCULAR HEMOGLOBIN (BEAKER) (test code = 751) 32.8 pg 25.6-32.2 H MEAN CORPUSCULAR HEMOGLOBIN CONC (BEAKER) (test code = 752) 31.8 GM/DL 32.2-35.5 L RED CELL DISTRIBUTION WIDTH (BEAKER) (test code = 412) 19.4 % 11.7-14.4 H PLATELET COUNT (BEAKER) (test code = 756) 63 K/CU MM 150-450 L MEAN PLATELET VOLUME (BEAKER) (test code = 754) 10.0 fL 9.4-12 .3 NUCLEATED RED BLOOD CELLS (BEAKER) (test code = 413) 0 /100 WBC 0 -0 (CELLAVISION MANUAL DIFF)2020-01-28 14:34:00* Test Item Value Reference Range Interpretation Comments NEUTROPHILS - REL (CELLAVISION)(BEAKER) (test code = 2816) 99 % LYMPHOCYTES - REL (CELLAVISION)(BEAKER) (test code = 2817) 1 % NEUTROPHILS - ABS (CELLAVISION)(BEAKER) (test code = 2830) 1.39 K/ul 1.56-6.13 L LYMPHOCYTES - ABS (CELLAVISION)(BEAKER) (test code = 2831) 0.01 K/ul 1.18-3.74 L TOTAL COUNTED (BEAKER) (test code = 1351) 100 WBC MORPHOLOGY (BEAKER) (test code = 487) Normal GIANT PLATELETS (BEAKER) (test code = 313) Present LARGE PLT(BEAKER) (test code = 2156) Present POLYCHROMATOPHILLIC RBCS(BEAKER) (test code = 478) 1+ few HYPOCHROMIA (BEAKER) (test code = 963) 1+ few ANISOCYTOSIS (BEAKER) (test code = 961) 1+ few MACROCYTES (BEAKER) (test code = 964) 1+ few POIKILOCYTES (BEAKER) (test code = 966) 1+ few SPHEROCYTES (BEAKER) (test code = 768) 2+ moderate OVALOCYTES (BEAKER) (test code = 477) 1+ few ARTIFACT (CELLAVISION)(BEAKER) (test code = 3432) Present PLATELET CONCENTRATION (CELLAVISION)(BEAKER) (test code = 3438) Dec reased Compotype Operator ID - Aixa Raquel comments: Slide comments: COMPREHENSIVE METABOLIC [id number] 06:45:00* Test Item Value Reference Range Interpretation Comments TOTAL PROTEIN (BEAKER) (test code = 770) 5.6 gm/dL 6.0-8.3 L ALBUMIN (BEAKER) (test code = 1145) 3.7 g/dL 3.5-5.0 ALKALINE PHOSPHATASE (BEAKER) (test code = 346) 61 U/L 40-150 BILIRUBIN TOTAL (BEAKER) (test code = 377) 0.3 mg/dL 0.2-1.2 SODIUM (BEAKER) (test code = 381) 138 meq/L 136-145 POTASSIUM (BEAKER) (test code = 379) 3.9 meq/L 3.5-5.1 CHLORIDE (BEAKER) (test code = 382) 111 meq/L 98-107 H CO2 (BEAKER) (test code = 355) 22 meq/L 22-29 BLOOD UREA NITROGEN (BEAKER) (test code = 354) 18 mg/dL 7-21 CREATININE (BEAKER) (test code = 358) 0.65 mg/dL 0.57-1.25 GLUCOSE RANDOM (BEAKER) (test code = 652) 140 mg/dL 70-105 H CALCIUM (BEAKER) (test code = 697) 8.4 mg/dL 8.4-10.2 AST (SGOT) (BEAKER) (test code = 353) 16 U/L 5-34 ALT (SGPT) (BEAKER) (test code = 347) 14 U/L 6-55 EGFR (BEAKER) (test code = 1092) 93 mL/min/1.73 sq m ESTIMATED GFR IS NOT ACCURATE CREATININE CLEARANCE IN PREDICTING GLOMERULAR FILTRATION RATE. ESTIMATED GFR IS NOT APPLICABLE FOR DIALYSIS PATIENTS. Compotype Operator ID - PIAYA [facility] METABOL[facility] [id number] 04:43:00* Test Item Value Reference Range Interpretation Comments TOTAL PROTEIN (BEAKER) (test code = 770) 5.8 gm/dL 6.0-8.3 L ALBUMIN (BEAKER) (test code = 1145) 3.7 g/dL 3.5-5.0 ALKALINE PHOSPHATASE (BEAKER) (test code = 346) 62 U/L 40-150 BILIRUBIN TOTAL (BEAKER) (test code = 377) 0.6 mg/dL 0.2-1.2 SODIUM (BEAKER) (test code = 381) 139 meq/L 136-145 POTASSIUM (BEAKER) (test code = 379) 3.8 meq/L 3.5-5.1 CHLORIDE (BEAKER) (test code = 382) 112 meq/L 98-107 H CO2 (BEAKER) (test code = 355) 19 meq/L 22-29 L BLOOD UREA NITROGEN (BEAKER) (test code = 354) 17 mg/dL 7-21 CREATININE (BEAKER) (test code = 358) 0.63 mg/dL 0.57-1.25 GLUCOSE RANDOM (BEAKER) (test code = 652) 119 mg/dL 70-105 H CALCIUM (BEAKER) (test code = 697) 8.7 mg/dL 8.4-10.2 AST (SGOT) (BEAKER) (test code = 353) 21 U/L 5-34 ALT (SGPT) (BEAKER) (test code = 347) 15 U/L 6-55 EGFR (BEAKER) (test code = 1092) 96 mL/min/1.73 sq m ESTIMATED GFR IS NOT ACCURATE CREATININE CLEARANCE IN PREDICTING GLOMERULAR FILTRATION RATE. ESTIMATED GFR IS NOT APPLICABLE FOR DIALYSIS PATIENTS. Compotype Operator ID - PIAYA LCBC W/PLT COUNT & AUTO [id number] 04:17:00* Test Item Value Reference Range Interpretation Comments WHITE BLOOD CELL COUNT (BEAKER) (test code = 775) 4.4 K/ L 3.5- 10.5 RED BLOOD CELL COUNT (BEAKER) (test code = 761) 2.91 M/ L 3.93-5 .22 L HEMOGLOBIN (BEAKER) (test code = 410) 9.8 GM/DL 11.2-15.7 L HEMATOCRIT (BEAKER) (test code = 411) 29.6 % 34.1-44.9 L MEAN CORPUSCULAR VOLUME (BEAKER) (test code = 753) 101.7 fL 79. 4-94.8 H MEAN CORPUSCULAR HEMOGLOBIN (BEAKER) (test code = 751) 33.7 pg 25.6-32.2 H MEAN CORPUSCULAR HEMOGLOBIN CONC (BEAKER) (test code = 752) 33.1 GM/DL 32.2-35.5 RED CELL DISTRIBUTION WIDTH (BEAKER) (test code = 412) 19.5 % 11.7-14.4 H PLATELET COUNT (BEAKER) (test code = 756) 77 K/CU MM 150-450 L MEAN PLATELET VOLUME (BEAKER) (test code = 754) 10.2 fL 9.4-12 .3 NUCLEATED RED BLOOD CELLS (BEAKER) (test code = 413) 0 /100 WBC 0 -0 NEUTROPHILS RELATIVE PERCENT (BEAKER) (test code = 429) 98 % LYMPHOCYTES RELATIVE PERCENT (BEAKER) (test code = 430) 1 % MONOCYTES RELATIVE PERCENT (BEAKER) (test code = 431) 1 % EOSINOPHILS RELATIVE PERCENT (BEAKER) (test code = 432) 0 % BASOPHILS RELATIVE PERCENT (BEAKER) (test code = 437) 0 % NEUTROPHILS ABSOLUTE COUNT (BEAKER) (test code = 670) 4.27 K/ L 1.56-6.13 LYMPHOCYTES ABSOLUTE COUNT (BEAKER) (test code = 414) 0.05 K/ L 1.18-3.74 L MONOCYTES ABSOLUTE COUNT (BEAKER) (test code = 415) 0.03 K/ L 0. 24-0.36 L EOSINOPHILS ABSOLUTE COUNT (BEAKER) (test code = 416) 0.00 K/ L 0.04-0.36 L BASOPHILS ABSOLUTE COUNT (BEAKER) (test code = 417) 0.00 K/ L 0. 01-0.08 L IMMATURE GRANULOCYTES-RELATIVE PERCENT (BEAKER) (test code = 2801) 1 % 0-1 CT, CHEST, WITHOUT [id number] 12:28:00Follow up on prior infiltratesUnlisted Reason for Exam - Click Yes and Enter Reason Below->NoFINAL REPORT History: Pneumonia. TECHNIQUE: Helical CT of the chest was performed without contrast utilizing multiple windows, sagittal and coronal reformations. This exam was performed according to our departmental dose optimization program which includes automated exposure control, adjustment of the mA and/or KV according to the patient's size and/or use of iterative liliam nstruction technique. FINDINGS: Correlation is made with patient's previous stud y performed November 26, 2019. Minimal atherosclerotic calcification of the aorta is again noted. The heart, mediastinum and great vessels are otherwise unremarkabl e in this noncontrast study. A right upper extremity PICC line is noted its tip terminates in the superior vena cava. No mediastinal or hilar adenopathy. Thyroi d gland is unremarkable. Central airways are patent. Focal opacity in the upper lobes has improved significantly since the previous study. Only a small amount o f residual opacity is present. No new pulmonary parenchymal abnormalities. No ef fusions. No suspicious pulmonary nodules or masses. Images obtained through the upper abdomen are unremarkable. Bones are unremarkable. IMPRESSION: 1. Improved and resolving bilateral upper lobe pneumonia since the patient's prior study. No new cardiopulmonary abnormalities. Signed: José Luis Lao MDReport Verified Date /Time: 01/26/2020 12:28:09 Reading Location: [facility] C013T Transitional Reading Room chest without IV [id number] 12:28:00Interface, External Ris In - 01/26/2020 12:30 PM CDTFINAL REPORT History: Pneumonia. TECHNIQUE: Helical CT of [...] the aorta is again noted. The heart, med iastinum and great vessels are otherwise unremarkable in this noncontrast study. A right upper extremity PICC line is noted its tip terminates in the superior v fernando cava. No mediastinal or hilar adenopathy. Thyroid gland is unremarkable. Radha tral airways are patent. Focal opacity in the upper lobes has improved significa ntly since the previous study. Only a small amount of residual opacity is presen t. No new pulmonary parenchymal abnormalities. No effusions. No suspicious pulmo nary nodules or masses. Images obtained through the upper abdomen are unremarkab le. Bones are unremarkable. IMPRESSION: 1. Improved and resolving bilateral uppe r lobe pneumonia since the patient's prior study. No new cardiopulmonary abnorma lities. Signed: José Luis Lao MDReport Verified Date/Time: 01/26/2020 12:28:09 Reading Location: [address] Transitional Reading Room Electronically sig sonia by: JOSÉ LUIS LAO M.D. on 01/26/2020 12:28 PM [facility] W/PLT COUNT & AUTO [id number] 09:32:00* Test Item Value Reference Range Interpretation Comments WHITE BLOOD CELL COUNT (BEAKER) (test code = 775) 3.8 K/ L 3.5- 10.5 RED BLOOD CELL COUNT (BEAKER) (test code = 761) 3.23 M/ L 3.93-5 .22 L HEMOGLOBIN (BEAKER) (test code = 410) 10.5 GM/DL 11.2-15.7 L HEMATOCRIT (BEAKER) (test code = 411) 32.9 % 34.1-44.9 L MEAN CORPUSCULAR VOLUME (BEAKER) (test code = 753) 101.9 fL 79. 4-94.8 H MEAN CORPUSCULAR HEMOGLOBIN (BEAKER) (test code = 751) 32.5 pg 25.6-32.2 H MEAN CORPUSCULAR HEMOGLOBIN CONC (BEAKER) (test code = 752) 31.9 GM/DL 32.2-35.5 L RED CELL DISTRIBUTION WIDTH (BEAKER) (test code = 412) 20.3 % 11.7-14.4 H PLATELET COUNT (BEAKER) (test code = 756) 91 K/CU MM 150-450 L MEAN PLATELET VOLUME (BEAKER) (test code = 754) 10.1 fL 9.4-12 .3 NUCLEATED RED BLOOD CELLS (BEAKER) (test code = 413) 0 /100 WBC 0 -0 (CELLAVISION MANUAL DIFF)2020-01-26 09:32:00* Test Item Value Reference Range Interpretation Comments NEUTROPHILS - REL (CELLAVISION)(BEAKER) (test code = 2816) 97 % LYMPHOCYTES - REL (CELLAVISION)(BEAKER) (test code = 2817) 2 % BANDS - REL (CELLAVISION)(BEAKER) (test code = 2826) 1 % 0 -10 NEUTROPHILS - ABS (CELLAVISION)(BEAKER) (test code = 2830) 3.69 K/ul 1.56-6.13 LYMPHOCYTES - ABS (CELLAVISION)(BEAKER) (test code = 2831) 0.08 K/ul 1.18-3.74 L BANDS - ABS (CELLAVISION)(BEAKER) (test code = 2840) 0.04 K/uL 0 .00-0.80 TOTAL COUNTED (BEAKER) (test code = 1351) 100 WBC MORPHOLOGY (BEAKER) (test code = 487) Normal PLT MORPHOLOGY (BEAKER) (test code = 486) Normal POLYCHROMATOPHILLIC RBCS(BEAKER) (test code = 478) 1+ few ANISOCYTOSIS (BEAKER) (test code = 961) 2+ moderate MICROCYTES (BEAKER) (test code = 965) 2+ moderate MACROCYTES (BEAKER) (test code = 964) 3+ many POIKILOCYTES (BEAKER) (test code = 966) 2+ moderate OVALOCYTES (BEAKER) (test code = 477) 2+ moderate TEAR DROP CELLS (BEAKER) (test code = 481) 1+ few ARTIFACT (CELLAVISION)(BEAKER) (test code = 3432) Present PLATELET CONCENTRATION (CELLAVISION)(BEAKER) (test code = 3438) Dec reased Compotype Operator ID - Donnie-Charbel HuangUser comments: Slide comments: COMPREHENSIVE METABOLIC [id number] 06:01:00* Test Item Value Reference Range Interpretation Comments TOTAL PROTEIN (BEAKER) (test code = 770) 6.2 gm/dL 6.0-8.3 ALBUMIN (BEAKER) (test code = 1145) 4.0 g/dL 3.5-5.0 ALKALINE PHOSPHATASE (BEAKER) (test code = 346) 69 U/L 40-150 BILIRUBIN TOTAL (BEAKER) (test code = 377) 0.5 mg/dL 0.2-1.2 SODIUM (BEAKER) (test code = 381) 143 meq/L 136-145 POTASSIUM (BEAKER) (test code = 379) 4.0 meq/L 3.5-5.1 CHLORIDE (BEAKER) (test code = 382) 114 meq/L 98-107 H CO2 (BEAKER) (test code = 355) 22 meq/L 22-29 BLOOD UREA NITROGEN (BEAKER) (test code = 354) 13 mg/dL 7-21 CREATININE (BEAKER) (test code = 358) 0.65 mg/dL 0.57-1.25 GLUCOSE RANDOM (BEAKER) (test code = 652) 136 mg/dL 70-105 H CALCIUM (BEAKER) (test code = 697) 9.1 mg/dL 8.4-10.2 AST (SGOT) (BEAKER) (test code = 353) 20 U/L 5-34 ALT (SGPT) (BEAKER) (test code = 347) 16 U/L 6-55 EGFR (BEAKER) (test code = 1092) 93 mL/min/1.73 sq m ESTIMATED GFR IS NOT ACCURATE CREATININE CLEARANCE IN PREDICTING GLOMERULAR FILTRATION RATE. ESTIMATED GFR IS NOT APPLICABLE FOR DIALYSIS PATIENTS. Compotype Operator ID - PIAYA [facility] METABOLIC [id number] 05:51:00* Test Item Value Reference Range Interpretation Comments TOTAL PROTEIN (BEAKER) (test code = 770) 5.8 gm/dL 6.0-8.3 L ALBUMIN (BEAKER) (test code = 1145) 3.7 g/dL 3.5-5.0 ALKALINE PHOSPHATASE (BEAKER) (test code = 346) 65 U/L 40-150 BILIRUBIN TOTAL (BEAKER) (test code = 377) 0.4 mg/dL 0.2-1.2 SODIUM (BEAKER) (test code = 381) 143 meq/L 136-145 POTASSIUM (BEAKER) (test code = 379) 4.2 meq/L 3.5-5.1 CHLORIDE (BEAKER) (test code = 382) 115 meq/L 98-107 H CO2 (BEAKER) (test code = 355) 20 meq/L 22-29 L BLOOD UREA NITROGEN (BEAKER) (test code = 354) 15 mg/dL 7-21 CREATININE (BEAKER) (test code = 358) 0.66 mg/dL 0.57-1.25 GLUCOSE RANDOM (BEAKER) (test code = 652) 114 mg/dL 70-105 H CALCIUM (BEAKER) (test code = 697) 8.8 mg/dL 8.4-10.2 AST (SGOT) (BEAKER) (test code = 353) 19 U/L 5-34 ALT (SGPT) (BEAKER) (test code = 347) 15 U/L 6-55 EGFR (BEAKER) (test code = 1092) 91 mL/min/1.73 sq m ESTIMATED GFR IS NOT ACCURATE CREATININE CLEARANCE IN PREDICTING GLOMERULAR FILTRATION RATE. ESTIMATED GFR IS NOT APPLICABLE FOR DIALYSIS PATIENTS. Compotype Operator ID - EDASICBC W/PLT COUNT & AUTO [id number] 05:32:00* Test Item Value Reference Range Interpretation Comments WHITE BLOOD CELL COUNT (BEAKER) (test code = 775) 10.0 K/ L 3.5- 10.5 RED BLOOD CELL COUNT (BEAKER) (test code = 761) 3.09 M/ L 3.93-5 .22 L HEMOGLOBIN (BEAKER) (test code = 410) 10.3 GM/DL 11.2-15.7 L HEMATOCRIT (BEAKER) (test code = 411) 31.7 % 34.1-44.9 L MEAN CORPUSCULAR VOLUME (BEAKER) (test code = 753) 102.6 fL 79. 4-94.8 H MEAN CORPUSCULAR HEMOGLOBIN (BEAKER) (test code = 751) 33.3 pg 25.6-32.2 H MEAN CORPUSCULAR HEMOGLOBIN CONC (BEAKER) (test code = 752) 32.5 GM/DL 32.2-35.5 RED CELL DISTRIBUTION WIDTH (BEAKER) (test code = 412) 20.8 % 11.7-14.4 H PLATELET COUNT (BEAKER) (test code = 756) 93 K/CU MM 150-450 L MEAN PLATELET VOLUME (BEAKER) (test code = 754) 10.1 fL 9.4-12 .3 NUCLEATED RED BLOOD CELLS (BEAKER) (test code = 413) 0 /100 WBC 0 -0 NEUTROPHILS RELATIVE PERCENT (BEAKER) (test code = 429) 92 % LYMPHOCYTES RELATIVE PERCENT (BEAKER) (test code = 430) 2 % MONOCYTES RELATIVE PERCENT (BEAKER) (test code = 431) 6 % EOSINOPHILS RELATIVE PERCENT (BEAKER) (test code = 432) 0 % BASOPHILS RELATIVE PERCENT (BEAKER) (test code = 437) 0 % NEUTROPHILS ABSOLUTE COUNT (BEAKER) (test code = 670) 9.13 K/ L 1.56-6.13 H LYMPHOCYTES ABSOLUTE COUNT (BEAKER) (test code = 414) 0.22 K/ L 1.18-3.74 L MONOCYTES ABSOLUTE COUNT (BEAKER) (test code = 415) 0.59 K/ L 0. 24-0.36 H EOSINOPHILS ABSOLUTE COUNT (BEAKER) (test code = 416) 0.00 K/ L 0.04-0.36 L BASOPHILS ABSOLUTE COUNT (BEAKER) (test code = 417) 0.00 K/ L 0. 01-0.08 L IMMATURE GRANULOCYTES-RELATIVE PERCENT (BEAKER) (test code = 2801) 0 % 0-1 CBC W/PLT COUNT & AUTO [id number] 06:02:00* Test Item Value Reference Range Interpretation Comments WHITE BLOOD CELL COUNT (BEAKER) (test code = 775) 2.5 K/ L 3.5- 10.5 L RED BLOOD CELL COUNT (BEAKER) (test code = 761) 3.30 M/ L 3.93-5 .22 L HEMOGLOBIN (BEAKER) (test code = 410) 10.8 GM/DL 11.2-15.7 L HEMATOCRIT (BEAKER) (test code = 411) 33.7 % 34.1-44.9 L MEAN CORPUSCULAR VOLUME (BEAKER) (test code = 753) 102.1 fL 79. 4-94.8 H MEAN CORPUSCULAR HEMOGLOBIN (BEAKER) (test code = 751) 32.7 pg 25.6-32.2 H MEAN CORPUSCULAR HEMOGLOBIN CONC (BEAKER) (test code = 752) 32.0 GM/DL 32.2-35.5 L RED CELL DISTRIBUTION WIDTH (BEAKER) (test code = 412) 20.6 % 11.7-14.4 H PLATELET COUNT (BEAKER) (test code = 756) 98 K/CU MM 150-450 L MEAN PLATELET VOLUME (BEAKER) (test code = 754) 10.6 fL 9.4-12 .3 NUCLEATED RED BLOOD CELLS (BEAKER) (test code = 413) 0 /100 WBC 0 -0 NEUTROPHILS RELATIVE PERCENT (BEAKER) (test code = 429) 75 % LYMPHOCYTES RELATIVE PERCENT (BEAKER) (test code = 430) 22 % MONOCYTES RELATIVE PERCENT (BEAKER) (test code = 431) 2 % EOSINOPHILS RELATIVE PERCENT (BEAKER) (test code = 432) 0 % BASOPHILS RELATIVE PERCENT (BEAKER) (test code = 437) 0 % NEUTROPHILS ABSOLUTE COUNT (BEAKER) (test code = 670) 1.88 K/ L 1.56-6.13 LYMPHOCYTES ABSOLUTE COUNT (BEAKER) (test code = 414) 0.54 K/ L 1.18-3.74 L MONOCYTES ABSOLUTE COUNT (BEAKER) (test code = 415) 0.05 K/ L 0. 24-0.36 L EOSINOPHILS ABSOLUTE COUNT (BEAKER) (test code = 416) 0.00 K/ L 0.04-0.36 L BASOPHILS ABSOLUTE COUNT (BEAKER) (test code = 417) 0.01 K/ L 0. 01-0.08 IMMATURE GRANULOCYTES-RELATIVE PERCENT (BEAKER) (test code = 2801) 1 % 0-1 COMPREHENSIVE METABOLIC [id number] 05:58:00* Test Item Value Reference Range Interpretation Comments TOTAL PROTEIN (BEAKER) (test code = 770) 6.2 gm/dL 6.0-8.3 ALBUMIN (BEAKER) (test code = 1145) 3.9 g/dL 3.5-5.0 ALKALINE PHOSPHATASE (BEAKER) (test code = 346) 73 U/L 40-150 BILIRUBIN TOTAL (BEAKER) (test code = 377) 0.2 mg/dL 0.2-1.2 SODIUM (BEAKER) (test code = 381) 139 meq/L 136-145 POTASSIUM (BEAKER) (test code = 379) 4.2 meq/L 3.5-5.1 CHLORIDE (BEAKER) (test code = 382) 112 meq/L 98-107 H CO2 (BEAKER) (test code = 355) 20 meq/L 22-29 L BLOOD UREA NITROGEN (BEAKER) (test code = 354) 21 mg/dL 7-21 CREATININE (BEAKER) (test code = 358) 0.81 mg/dL 0.57-1.25 GLUCOSE RANDOM (BEAKER) (test code = 652) 162 mg/dL 70-105 H CALCIUM (BEAKER) (test code = 697) 8.6 mg/dL 8.4-10.2 AST (SGOT) (BEAKER) (test code = 353) 20 U/L 5-34 ALT (SGPT) (BEAKER) (test code = 347) 16 U/L 6-55 EGFR (BEAKER) (test code = 1092) 72 mL/min/1.73 sq m ESTIMATED GFR IS NOT ACCURATE CREATININE CLEARANCE IN PREDICTING GLOMERULAR FILTRATION RATE. ESTIMATED GFR IS NOT APPLICABLE FOR DIALYSIS PATIENTS. Compotype Operator ID - [id number] 15:18:00* Test Item Value Reference Range Interpretation Comments MAGNESIUM (BEAKER) (test code = 627) 2.3 mg/dL 1.6-2.6 Compotype Operator ID - BSCOMPREHENSIVE METABOLIC [id number] 15:18:00* Test Item Value Reference Range Interpretation Comments TOTAL PROTEIN (BEAKER) (test code = 770) 6.4 gm/dL 6.0-8.3 ALBUMIN (BEAKER) (test code = 1145) 4.0 g/dL 3.5-5.0 ALKALINE PHOSPHATASE (BEAKER) (test code = 346) 73 U/L 40-150 BILIRUBIN TOTAL (BEAKER) (test code = 377) 0.3 mg/dL 0.2-1.2 SODIUM (BEAKER) (test code = 381) 137 meq/L 136-145 POTASSIUM (BEAKER) (test code = 379) 4.1 meq/L 3.5-5.1 CHLORIDE (BEAKER) (test code = 382) 107 meq/L 98-107 CO2 (BEAKER) (test code = 355) 21 meq/L 22-29 L BLOOD UREA NITROGEN (BEAKER) (test code = 354) 27 mg/dL 7-21 H CREATININE (BEAKER) (test code = 358) 0.84 mg/dL 0.57-1.25 GLUCOSE RANDOM (BEAKER) (test code = 652) 110 mg/dL 70-105 H CALCIUM (BEAKER) (test code = 697) 8.8 mg/dL 8.4-10.2 AST (SGOT) (BEAKER) (test code = 353) 23 U/L 5-34 ALT (SGPT) (BEAKER) (test code = 347) 17 U/L 6-55 EGFR (BEAKER) (test code = 1092) 69 mL/min/1.73 sq m ESTIMATED GFR IS NOT ACCURATE CREATININE CLEARANCE IN PREDICTING GLOMERULAR FILTRATION RATE. ESTIMATED GFR IS NOT APPLICABLE FOR DIALYSIS PATIENTS. Compotype Operator ID - BSSpecimen slightly lipemicCBC W/PLT COUNT & AUTO DIFFERENTIAL 2020-01-23 14:52:00* Test Item Value Reference Range Interpretation Comments WHITE BLOOD CELL COUNT (BEAKER) (test code = 775) 4.5 K/ L 3.5- 10.5 RED BLOOD CELL COUNT (BEAKER) (test code = 761) 3.19 M/ L 3.93-5 .22 L HEMOGLOBIN (BEAKER) (test code = 410) 10.4 GM/DL 11.2-15.7 L HEMATOCRIT (BEAKER) (test code = 411) 32.2 % 34.1-44.9 L MEAN CORPUSCULAR VOLUME (BEAKER) (test code = 753) 100.9 fL 79. 4-94.8 H MEAN CORPUSCULAR HEMOGLOBIN (BEAKER) (test code = 751) 32.6 pg 25.6-32.2 H MEAN CORPUSCULAR HEMOGLOBIN CONC (BEAKER) (test code = 752) 32.3 GM/DL 32.2-35.5 RED CELL DISTRIBUTION WIDTH (BEAKER) (test code = 412) 21.1 % 11.7-14.4 H PLATELET COUNT (BEAKER) (test code = 756) 91 K/CU MM 150-450 L MEAN PLATELET VOLUME (BEAKER) (test code = 754) 10.6 fL 9.4-12 .3 NUCLEATED RED BLOOD CELLS (BEAKER) (test code = 413) 0 /100 WBC 0 -0 NEUTROPHILS RELATIVE PERCENT (BEAKER) (test code = 429) 53 % LYMPHOCYTES RELATIVE PERCENT (BEAKER) (test code = 430) 27 % MONOCYTES RELATIVE PERCENT (BEAKER) (test code = 431) 16 % EOSINOPHILS RELATIVE PERCENT (BEAKER) (test code = 432) 3 % BASOPHILS RELATIVE PERCENT (BEAKER) (test code = 437) 0 % NEUTROPHILS ABSOLUTE COUNT (BEAKER) (test code = 670) 2.38 K/ L 1.56-6.13 LYMPHOCYTES ABSOLUTE COUNT (BEAKER) (test code = 414) 1.21 K/ L 1.18-3.74 MONOCYTES ABSOLUTE COUNT (BEAKER) (test code = 415) 0.71 K/ L 0. 24-0.36 H EOSINOPHILS ABSOLUTE COUNT (BEAKER) (test code = 416) 0.12 K/ L 0.04-0.36 BASOPHILS ABSOLUTE COUNT (BEAKER) (test code = 417) 0.00 K/ L 0. 01-0.08 L IMMATURE GRANULOCYTES-RELATIVE PERCENT (BEAKER) (test code = 2801) 1 % 0-1 Sequence based [id number] 12:45:15* Test Item Value Reference Range Interpretation Comments Interpretation (test code = 2906864) Note: HLA typing was performed by PCR- SSP/SSO and PCR-SBT DNA based procedures.Although unlikely, the following uncommon alleles cannot be ruled outA*02:CCEHN=A*02:01/02:786/02:844/02:846/02:864/02:869B *44:CETNY=B*44:02/44:292/44:321/44:457/44:464/44:470/44:477/44:543QMF1*01:JZDV=D RB1*01:05/30:611DRK2*03:RPXT=DRB1*03:01/03:136BDZ8*05:CDHTN=DQB1*05:01/05:44/05: 183/05:193/05:194/05:195/05:216/05:230/05: 232/05:234/05:115KXI0*02:CVBWS=DQB1*02:01/02:47/02:109/02:112/02:148/02:734DELS9 *02:CRWSZ=DRB3*02:02/02:28/02:29N/02:30/02:31/02:33/02:34/02:35/02:36/02:39/02:4 0/02:41/02:43/02:45/02:46/02:47/02:49/02:5 1/02:52/02:53/02:54/02:57/02:59/02:60/02:61Q/02:62/02:63/02:64/02:65/02:66/02:67 N/02:68/02:69/02:70/02:71/02:72/02:73/02:74/02:75/02:76/02:77/02:79/02:80N/02:82 /02:84/02:85/02:86/02:87/02:88/02:90/02:91 /02:92/02:93/02:94/02:95N/02:96/02:97/02:98/02:99/02:101/02:102/02:105/02:107/02 :108/02:109N/02:110/02:113/02:114/02:116/02:117/02:118/02:120/02:121N/02:122/02: 123/02:124/02:125N/02:126/02:127/02:128/02 :129/02:130/02:132/02:133/02:134/02:135/02:136/02:137N/02:138/02:139/02:140/02:1 42Common Alleles found in the above strings can only be present when paired with uncommon alleles and therefore are not resolved. Case number (test code = 1677506) [id number] Sequence based typing (test code = 11285-7) See link below for P DF Lab Report [facility], [id number] 19:55:42* Test Item Value Reference Range Interpretation Comments Cytomegalovirus Ab, IgM (test code = 5659283) Negative Negative [facility] [id number] 10:46:10* Test Item Value Reference Range Interpretation Comments Blood type ([facility]) (test code = 882-1) O POS Antibody screen interp ([facility]) (test code = 05286-9) Negative Hepatitis B core Ab ([facility]) (test code = 85358-6) Non-Reactive Hepatitis B surface Ag ([facility]) (test code = 5195-3) Non-Reacti ve Hepatitis C ([facility]) (test code = 21562-5) Non-Reactive HIV combined ([facility]) (test code = 7918-6) Non-Reactive HTLV combined ([facility]) (test code = 96425-2) Non-Reactive FINA HBV ([facility]) (test code = 1777) Non-Reactive FINA HIV ([facility]) (test code = 1781) Non-Reactive FINA HCV ([facility]) (test code = 1779) Non-Reactive FINA West Nile virus ([facility]) (test code = 45379-1) Non-Reactive RPR screen ([facility]) (test code = 05439-6) Non-Reactive Chagas ([facility]) (test code = 70315-8) Non-Reactive CMV screen ([facility]) (test code = 90800-3) Positive A Lab Interpretation (test code = 02451-6) Abnormal [facility], [id number] 13:18:01* Test Item Value Reference Range Interpretation Comments Cytomegalovirus Ab, IgG (test code = 25213-5) Positive Negative A Positive; IgG antibody to CMV detected which may indicateexposure to CMV infection. Lab Interpretation (test code = 40518-5) Abnormal [facility] MethodistFUNGUS CULTURE, BLOOD (ISOLATOR)2020 14:11:00* Test Item Value Reference Range Interpretation Comments CULTURE (BEAKER) (test code = 1095) No fungus isolated CBC W/PLT COUNT & AUTO [id number] 09:25:00* Test Item Value Reference Range Interpretation Comments WHITE BLOOD CELL COUNT (BEAKER) (test code = 775) 2.4 K/ L 3.5- 10.5 L RED BLOOD CELL COUNT (BEAKER) (test code = 761) 2.85 M/ L 3.93-5 .22 L HEMOGLOBIN (BEAKER) (test code = 410) 8.7 GM/DL 11.2-15.7 L HEMATOCRIT (BEAKER) (test code = 411) 25.9 % 34.1-44.9 L MEAN CORPUSCULAR VOLUME (BEAKER) (test code = 753) 90.9 fL 79. 4-94.8 MEAN CORPUSCULAR HEMOGLOBIN (BEAKER) (test code = 751) 30.5 pg 25.6-32.2 MEAN CORPUSCULAR HEMOGLOBIN CONC (BEAKER) (test code = 752) 33.6 GM/DL 32.2-35.5 RED CELL DISTRIBUTION WIDTH (BEAKER) (test code = 412) 14.0 % 11.7-14.4 PLATELET COUNT (BEAKER) (test code = 756) 23 K/CU MM 150-450 L MEAN PLATELET VOLUME (BEAKER) (test code = 754) 11.6 fL 9.4-12 .3 NUCLEATED RED BLOOD CELLS (BEAKER) (test code = 413) 0 /100 WBC 0 -0 (CELLAVISION MANUAL DIFF)2020-01-04 09:25:00* Test Item Value Reference Range Interpretation Comments NEUTROPHILS - REL (CELLAVISION)(BEAKER) (test code = 2816) 33 % LYMPHOCYTES - REL (CELLAVISION)(BEAKER) (test code = 2817) 14 % MONOCYTES - REL (CELLAVISION)(BEAKER) (test code = 2818) 44 % EOSINOPHILS - REL (CELLAVISION)(BEAKER) (test code = 2819) 1 % BANDS - REL (CELLAVISION)(BEAKER) (test code = 2826) 5 % 0 -10 BLASTS - REL (CELLAVISION)(BEAKER) (test code = 2827) 2 % 0-0 H NEUTROPHILS - ABS (CELLAVISION)(BEAKER) (test code = 2830) 0.79 K/ul 1.56-6.13 L LYMPHOCYTES - ABS (CELLAVISION)(BEAKER) (test code = 2831) 0.34 K/ul 1.18-3.74 L MONOCYTES - ABS (CELLAVISION)(BEAKER) (test code = 2832) 1.06 K/uL 0.24-0.36 H EOSINOPHILS - ABS (CELLAVISION)(BEAKER) (test code = 2834) 0.02 K/uL 0.04-0.36 L BANDS - ABS (CELLAVISION)(BEAKER) (test code = 2840) 0.12 K/uL 0 .00-0.80 BLASTS - ABS (CELLAVISION)(BEAKER) (test code = 2845) 0.05 K/uL 0.00-0.00 H TOTAL COUNTED (BEAKER) (test code = 1351) 100 MANUAL NRBC PER 100 CELLS (BEAKER) (test code = 1353) 1 /100 WBC 0-0 H WBC MORPHOLOGY (BEAKER) (test code = 487) Normal PLT MORPHOLOGY (BEAKER) (test code = 486) Normal POLYCHROMATOPHILLIC RBCS(BEAKER) (test code = 478) 1+ few ANISOCYTOSIS (BEAKER) (test code = 961) 1+ few MICROCYTES (BEAKER) (test code = 965) 1+ few POIKILOCYTES (BEAKER) (test code = 966) 1+ few ARTIFACT (CELLAVISION)(BEAKER) (test code = 3432) Present PLATELET CONCENTRATION (CELLAVISION)(BEAKER) (test code = 3438) Dec reased Compotype Operator ID - [id number] ID - Rosalina OverholtUser comments: Slide comments: [id number] 05:31:00* Test Item Value Reference Range Interpretation Comments MAGNESIUM (BEAKER) (test code = 627) 2.0 mg/dL 1.6-2.6 Compotype Operator ID - EDASIBASIC METABOLIC [id number] 05:31:00* Test Item Value Reference Range Interpretation Comments SODIUM (BEAKER) (test code = 381) 140 meq/L 136-145 POTASSIUM (BEAKER) (test code = 379) 4.1 meq/L 3.5-5.1 CHLORIDE (BEAKER) (test code = 382) 111 meq/L 98-107 H CO2 (BEAKER) (test code = 355) 22 meq/L 22-29 BLOOD UREA NITROGEN (BEAKER) (test code = 354) 14 mg/dL 7-21 CREATININE (BEAKER) (test code = 358) 0.75 mg/dL 0.57-1.25 GLUCOSE RANDOM (BEAKER) (test code = 652) 86 mg/dL 70-105 CALCIUM (BEAKER) (test code = 697) 9.1 mg/dL 8.4-10.2 EGFR (BEAKER) (test code = 1092) 79 mL/min/1.73 sq m ESTIMATED GFR IS NOT ACCURATE CREATININE CLEARANCE IN PREDICTING GLOMERULAR FILTRATION RATE. ESTIMATED GFR IS NOT APPLICABLE FOR DIALYSIS PATIENTS. Compotype Operator ID - EDASIBLOOD [id number] 19:00:00* Test Item Value Reference Range Interpretation Comments CULTURE (BEAKER) (test code = 1095) No growth in 5 days BLOOD [id number] 19:00:00* Test Item Value Reference Range Interpretation Comments CULTURE (BEAKER) (test code = 1095) No growth in 5 days CBC W/PLT COUNT & AUTO [id number] 10:54:00* Test Item Value Reference Range Interpretation Comments WHITE BLOOD CELL COUNT (BEAKER) (test code = 775) 1.6 K/ L 3.5- 10.5 L RED BLOOD CELL COUNT (BEAKER) (test code = 761) 2.30 M/ L 3.93-5 .22 L HEMOGLOBIN (BEAKER) (test code = 410) 6.9 GM/DL 11.2-15.7 L HEMATOCRIT (BEAKER) (test code = 411) 21.1 % 34.1-44.9 L MEAN CORPUSCULAR VOLUME (BEAKER) (test code = 753) 91.7 fL 79. 4-94.8 MEAN CORPUSCULAR HEMOGLOBIN (BEAKER) (test code = 751) 30.0 pg 25.6-32.2 MEAN CORPUSCULAR HEMOGLOBIN CONC (BEAKER) (test code = 752) 32.7 GM/DL 32.2-35.5 RED CELL DISTRIBUTION WIDTH (BEAKER) (test code = 412) 14.3 % 11.7-14.4 PLATELET COUNT (BEAKER) (test code = 756) 19 K/CU MM 150-450 L MEAN PLATELET VOLUME (BEAKER) (test code = 754) 11.1 fL 9.4-12 .3 NUCLEATED RED BLOOD CELLS (BEAKER) (test code = 413) 0 /100 WBC 0 -0 (CELLAVISION MANUAL DIFF)2020-01-03 10:54:00* Test Item Value Reference Range Interpretation Comments NEUTROPHILS - REL (CELLAVISION)(BEAKER) (test code = 2816) 26 % LYMPHOCYTES - REL (CELLAVISION)(BEAKER) (test code = 2817) 15 % MONOCYTES - REL (CELLAVISION)(BEAKER) (test code = 2818) 52 % PROMYELOCYTES - REL (CELLAVSION)(BEAKER) (test code = 2825) 3 % 0-0 H BANDS - REL (CELLAVISION)(BEAKER) (test code = 2826) 1 % 0 -10 BLASTS - REL (CELLAVISION)(BEAKER) (test code = 2827) 2 % 0-0 H ATYPICAL LYMPHOCYTES - REL (CELLAVISION)(BEAKER) (test code = 2829) 1 % 0-0 H NEUTROPHILS - ABS (CELLAVISION)(BEAKER) (test code = 2830) 0.42 K/ul 1.56-6.13 L LYMPHOCYTES - ABS (CELLAVISION)(BEAKER) (test code = 2831) 0.24 K/ul 1.18-3.74 L MONOCYTES - ABS (CELLAVISION)(BEAKER) (test code = 2832) 0.83 K/uL 0.24-0.36 H PROMYELOCYTES - ABS (CELLAVISION)(BEAKER) (test code = 2838) 0.05 K/uL 0.00-0.00 H BANDS - ABS (CELLAVISION)(BEAKER) (test code = 2840) 0.02 K/uL 0 .00-0.80 BLASTS - ABS (CELLAVISION)(BEAKER) (test code = 2845) 0.03 K/uL 0.00-0.00 H ATYPICAL LYMPHOCYTES - ABS (CELLAVISION)(BEAKER) (test code = 2858) 0.02 K/uL 0.00-0.00 H TOTAL COUNTED (BEAKER) (test code = 1351) 100 WBC MORPHOLOGY (BEAKER) (test code = 487) Normal PLT MORPHOLOGY (BEAKER) (test code = 486) Normal ANISOCYTOSIS (BEAKER) (test code = 961) 2+ moderate MICROCYTES (BEAKER) (test code = 965) 2+ moderate POIKILOCYTES (BEAKER) (test code = 966) 1+ few OVALOCYTES (BEAKER) (test code = 477) 1+ few TEAR DROP CELLS (BEAKER) (test code = 481) 1+ few ARTIFACT (CELLAVISION)(BEAKER) (test code = 3432) Present PLATELET CONCENTRATION (CELLAVISION)(BEAKER) (test code = 3438) Dec reased Compotype Operator ID - [id number] ID - Izabela Hanna comments: Slide comments: [id number] 04:19:00* Test Item Value Reference Range Interpretation Comments MAGNESIUM (BEAKER) (test code = 627) 2.1 mg/dL 1.6-2.6 Compotype Operator ID - EDASIBASIC METABOLIC [id number] 04:19:00* Test Item Value Reference Range Interpretation Comments SODIUM (BEAKER) (test code = 381) 136 meq/L 136-145 POTASSIUM (BEAKER) (test code = 379) 3.6 meq/L 3.5-5.1 CHLORIDE (BEAKER) (test code = 382) 108 meq/L 98-107 H CO2 (BEAKER) (test code = 355) 21 meq/L 22-29 L BLOOD UREA NITROGEN (BEAKER) (test code = 354) 13 mg/dL 7-21 CREATININE (BEAKER) (test code = 358) 0.73 mg/dL 0.57-1.25 GLUCOSE RANDOM (BEAKER) (test code = 652) 84 mg/dL 70-105 CALCIUM (BEAKER) (test code = 697) 9.0 mg/dL 8.4-10.2 EGFR (BEAKER) (test code = 1092) 81 mL/min/1.73 sq m ESTIMATED GFR IS NOT ACCURATE CREATININE CLEARANCE IN PREDICTING GLOMERULAR FILTRATION RATE. ESTIMATED GFR IS NOT APPLICABLE FOR DIALYSIS PATIENTS. Compotype Operator ID - EDASICBC W/PLT COUNT & AUTO [id number] 09:30:00* Test Item Value Reference Range Interpretation Comments WHITE BLOOD CELL COUNT (BEAKER) (test code = 775) 0.8 K/ L 3.5- 10.5 LL RED BLOOD CELL COUNT (BEAKER) (test code = 761) 2.44 M/ L 3.93-5 .22 L HEMOGLOBIN (BEAKER) (test code = 410) 7.2 GM/DL 11.2-15.7 L HEMATOCRIT (BEAKER) (test code = 411) 22.1 % 34.1-44.9 L MEAN CORPUSCULAR VOLUME (BEAKER) (test code = 753) 90.6 fL 79. 4-94.8 MEAN CORPUSCULAR HEMOGLOBIN (BEAKER) (test code = 751) 29.5 pg 25.6-32.2 MEAN CORPUSCULAR HEMOGLOBIN CONC (BEAKER) (test code = 752) 32.6 GM/DL 32.2-35.5 RED CELL DISTRIBUTION WIDTH (BEAKER) (test code = 412) 14.5 % 11.7-14.4 H PLATELET COUNT (BEAKER) (test code = 756) 30 K/CU MM 150-450 L MEAN PLATELET VOLUME (BEAKER) (test code = 754) 10.5 fL 9.4-12 .3 NUCLEATED RED BLOOD CELLS (BEAKER) (test code = 413) 0 /100 WBC 0 -0 (CELLAVISION MANUAL DIFF)2020-01-02 09:30:00* Test Item Value Reference Range Interpretation Comments NEUTROPHILS - REL (CELLAVISION)(BEAKER) (test code = 2816) 9 % LYMPHOCYTES - REL (CELLAVISION)(BEAKER) (test code = 2817) 40 % MONOCYTES - REL (CELLAVISION)(BEAKER) (test code = 2818) 44 % EOSINOPHILS - REL (CELLAVISION)(BEAKER) (test code = 2819) 2 % BLASTS - REL (CELLAVISION)(BEAKER) (test code = 2827) 1 % 0-0 H ATYPICAL LYMPHOCYTES - REL (CELLAVISION)(BEAKER) (test code = 2829) 4 % 0-0 H NEUTROPHILS - ABS (CELLAVISION)(BEAKER) (test code = 2830) 0.07 K/ul 1.56-6.13 L LYMPHOCYTES - ABS (CELLAVISION)(BEAKER) (test code = 2831) 0.32 K/ul 1.18-3.74 L MONOCYTES - ABS (CELLAVISION)(BEAKER) (test code = 2832) 0.35 K/uL 0.24-0.36 EOSINOPHILS - ABS (CELLAVISION)(BEAKER) (test code = 2834) 0.02 K/uL 0.04-0.36 L BLASTS - ABS (CELLAVISION)(BEAKER) (test code = 8215) 0.01 K/uL 0.00-0.00 H ATYPICAL LYMPHOCYTES - ABS (CELLAVISION)(BEAKER) (test code = 0178) 0.03 K/uL 0.00-0.00 H TOTAL COUNTED (BEAKER) (test code = 1351) 100 WBC MORPHOLOGY (BEAKER) (test code = 487) Normal PLT MORPHOLOGY (BEAKER) (test code = 486) Normal HYPOCHROMIA (BEAKER) (test code = 963) 1+ few ANISOCYTOSIS (BEAKER) (test code = 961) 2+ moderate MICROCYTES (BEAKER) (test code = 965) 2+ moderate POIKILOCYTES (BEAKER) (test code = 966) 1+ few SPHEROCYTES (BEAKER) (test code = 768) 1+ few ELLIPTOCYTES (BEAKER) (test code = 962) 1+ few OVALOCYTES (BEAKER) (test code = 477) 2+ moderate TEAR DROP CELLS (BEAKER) (test code = 481) 1+ few PLATELET CONCENTRATION (CELLAVISION)(BEAKER) (test code = 3438) Dec reased Compotype Operator ID - [id number] ID - Aixa García comments: Slide comments: [id number] 06:09:00* Test Item Value Reference Range Interpretation Comments MAGNESIUM (BEAKER) (test code = 627) 2.1 mg/dL 1.6-2.6 Compotype Operator ID - TALIB WBASIC METABOLIC [id number] 06:09:00* Test Item Value Reference Range Interpretation Comments SODIUM (BEAKER) (test code = 381) 137 meq/L 136-145 POTASSIUM (BEAKER) (test code = 379) 3.7 meq/L 3.5-5.1 CHLORIDE (BEAKER) (test code = 382) 108 meq/L 98-107 H CO2 (BEAKER) (test code = 355) 22 meq/L 22-29 BLOOD UREA NITROGEN (BEAKER) (test code = 354) 13 mg/dL 7-21 CREATININE (BEAKER) (test code = 358) 0.71 mg/dL 0.57-1.25 GLUCOSE RANDOM (BEAKER) (test code = 652) 89 mg/dL 70-105 CALCIUM (BEAKER) (test code = 697) 8.9 mg/dL 8.4-10.2 EGFR (BEAKER) (test code = 1092) 84 mL/min/1.73 sq m ESTIMATED GFR IS NOT ACCURATE CREATININE CLEARANCE IN PREDICTING GLOMERULAR FILTRATION RATE. ESTIMATED GFR IS NOT APPLICABLE FOR DIALYSIS PATIENTS. Compotype Operator ID - TALIB WPrepare [id number] 23:54:00* Test Item Value Reference Range Interpretation Comments Unit ABO (test code = 8308388) O Pos UNIT NUMBER (test code = 934-0) [id number] Status (test code = 9222366) TX_TIMEINCHART Blood Bank Product (test code = 2263) PLATELETS PRODUCT CODE (test code = 933-2) [id number] [facility] W/PLT COUNT & AUTO [id number] 13:22:00* Test Item Value Reference Range Interpretation Comments WHITE BLOOD CELL COUNT (BEAKER) (test code = 775) 0.3 K/ L 3.5- 10.5 LL RED BLOOD CELL COUNT (BEAKER) (test code = 761) 2.58 M/ L 3.93-5 .22 L HEMOGLOBIN (BEAKER) (test code = 410) 7.5 GM/DL 11.2-15.7 L HEMATOCRIT (BEAKER) (test code = 411) 23.0 % 34.1-44.9 L MEAN CORPUSCULAR VOLUME (BEAKER) (test code = 753) 89.1 fL 79. 4-94.8 MEAN CORPUSCULAR HEMOGLOBIN (BEAKER) (test code = 751) 29.1 pg 25.6-32.2 MEAN CORPUSCULAR HEMOGLOBIN CONC (BEAKER) (test code = 752) 32.6 GM/DL 32.2-35.5 RED CELL DISTRIBUTION WIDTH (BEAKER) (test code = 412) 14.4 % 11.7-14.4 PLATELET COUNT (BEAKER) (test code = 756) 48 K/CU MM 150-450 L Discordant PLT result compared to previous result; clinical correlation required. MEAN PLATELET VOLUME (BEAKER) (test code = 754) 10.2 fL 9.4-12 .3 NUCLEATED RED BLOOD CELLS (BEAKER) (test code = 413) 0 /100 WBC 0 -0 (MANUAL DIFFERENTIAL)2020-01-01 13:22:00* Test Item Value Reference Range Interpretation Comments NEUTROPHILS - REL (DIFF) (BEAKER) (test code = 1359) 3 % LYMPHOCYTES - REL (DIFF) (BEAKER) (test code = 1360) 38 % MONOCYTES - REL (DIFF) (BEAKER) (test code = 1361) 30 % EOSINOPHILS - REL (DIFF) (BEAKER) (test code = 1362) 2 % BASOPHILS - REL (DIFF) (BEAKER) (test code = 1363) 0 % BLASTS - REL (DIFF) (BEAKER) (test code = 1358) 11 % 0-0 H [id number] notified of blasts ATYPICAL LYMPHOCYTE - REL (DIFF) (BEAKER) (test code = 260) 16 % 0-0 H NEUTROPHILS - ABS (DIFF) (BEAKER) (test code = 1365) 0.01 K/ L 1 .80-8.00 L LYMPHOCYTES - ABS (DIFF) (BEAKER) (test code = 1366) 0.11 K/ L 1 .48-4.50 L MONOCYTES - ABS (DIFF) (BEAKER) (test code = 1367) 0.09 K/ L 0.0 0-1.30 EOSINOPHILS - ABS (DIFF) (BEAKER) (test code = 1368) 0.01 K/ L 0 .00-0.50 BASOPHILS - ABS (DIFF) (BEAKER) (test code = 1369) 0.00 K/ L 0.0 0-0.20 BLASTS - ABS (DIFF) (BEAKER) (test code = 1350) 0.03 K/ L 0.00-0 .00 H ATYPICAL LYMPHOCYTES - ABS (DIFF) (BEAKER) (test code = 263) 0.05 K/ L 0.00-0.00 H TOTAL COUNTED (BEAKER) (test code = 1351) 100 WBC MORPHOLOGY (BEAKER) (test code = 487) Normal PLT MORPHOLOGY (BEAKER) (test code = 486) Normal RBC MORPHOLOGY (BEAKER) (test code = 762) Normal Blasts confirmed by Dr. Giovanni Spani.[id number] 05:37:00* Test Item Value Reference Range Interpretation Comments MAGNESIUM (BEAKER) (test code = 627) 2.1 mg/dL 1.6-2.6 Compotype Operator ID - TALIB WBASIC METABOLIC [id number] 05:37:00* Test Item Value Reference Range Interpretation Comments SODIUM (BEAKER) (test code = 381) 138 meq/L 136-145 POTASSIUM (BEAKER) (test code = 379) 4.1 meq/L 3.5-5.1 CHLORIDE (BEAKER) (test code = 382) 107 meq/L 98-107 CO2 (BEAKER) (test code = 355) 23 meq/L 22-29 BLOOD UREA NITROGEN (BEAKER) (test code = 354) 11 mg/dL 7-21 CREATININE (BEAKER) (test code = 358) 0.68 mg/dL 0.57-1.25 GLUCOSE RANDOM (BEAKER) (test code = 652) 88 mg/dL 70-105 CALCIUM (BEAKER) (test code = 697) 9.0 mg/dL 8.4-10.2 EGFR (BEAKER) (test code = 1092) 88 mL/min/1.73 sq m ESTIMATED GFR IS NOT ACCURATE CREATININE CLEARANCE IN PREDICTING GLOMERULAR FILTRATION RATE. ESTIMATED GFR IS NOT APPLICABLE FOR DIALYSIS PATIENTS. Compotype Operator ID Olinda MAYERS WVANCOMYCIN LEVEL, [id number] 21:21:00* Test Item Value Reference Range Interpretation Comments VANCOMYCIN TROUGH (BEAKER) (test code = 522) 11.2 ug/mL 10.0-20.0 Compotype Operator ID Olinda WASH[place]URN LCBC W/PLT COUNT & AUTO [id number] 14:43:00* Test Item Value Reference Range Interpretation Comments WHITE BLOOD CELL COUNT (BEAKER) (test code = 775) 0.1 K/ L 3.5- 10.5 LL RED BLOOD CELL COUNT (BEAKER) (test code = 761) 2.73 M/ L 3.93-5 .22 L HEMOGLOBIN (BEAKER) (test code = 410) 8.0 GM/DL 11.2-15.7 L HEMATOCRIT (BEAKER) (test code = 411) 24.2 % 34.1-44.9 L MEAN CORPUSCULAR VOLUME (BEAKER) (test code = 753) 88.6 fL 79. 4-94.8 MEAN CORPUSCULAR HEMOGLOBIN (BEAKER) (test code = 751) 29.3 pg 25.6-32.2 MEAN CORPUSCULAR HEMOGLOBIN CONC (BEAKER) (test code = 752) 33.1 GM/DL 32.2-35.5 RED CELL DISTRIBUTION WIDTH (BEAKER) (test code = 412) 14.8 % 11.7-14.4 H PLATELET COUNT (BEAKER) (test code = 756) 12 K/CU MM 150-450 L MEAN PLATELET VOLUME (BEAKER) (test code = 754) 10.8 fL 9.4-12 .3 NUCLEATED RED BLOOD CELLS (BEAKER) (test code = 413) 0 /100 WBC 0 -0 (CELLAVISION MANUAL DIFF)2019-12-31 14:43:00* Test Item Value Reference Range Interpretation Comments NEUTROPHILS - REL (CELLAVISION)(BEAKER) (test code = 2816) 3 % LYMPHOCYTES - REL (CELLAVISION)(BEAKER) (test code = 2817) 74 % MONOCYTES - REL (CELLAVISION)(BEAKER) (test code = 2818) 17 % EOSINOPHILS - REL (CELLAVISION)(BEAKER) (test code = 2819) 6 % NEUTROPHILS - ABS (CELLAVISION)(BEAKER) (test code = 2830) 0.00 K/ul 1.56-6.13 L LYMPHOCYTES - ABS (CELLAVISION)(BEAKER) (test code = 2831) 0.07 K/ul 1.18-3.74 L MONOCYTES - ABS (CELLAVISION)(BEAKER) (test code = 2832) 0.02 K/uL 0.24-0.36 L EOSINOPHILS - ABS (CELLAVISION)(BEAKER) (test code = 2834) 0.01 K/uL 0.04-0.36 L TOTAL COUNTED (BEAKER) (test code = 1351) 100 WBC MORPHOLOGY (BEAKER) (test code = 487) Normal PLT MORPHOLOGY (BEAKER) (test code = 486) Normal ANISOCYTOSIS (BEAKER) (test code = 961) 1+ few MICROCYTES (BEAKER) (test code = 965) 1+ few POIKILOCYTES (BEAKER) (test code = 966) 1+ few OVALOCYTES (BEAKER) (test code = 477) 1+ few TEAR DROP CELLS (BEAKER) (test code = 481) 1+ few PLATELET CONCENTRATION (CELLAVISION)(BEAKER) (test code = 3438) Dec reased Compotype Operator ID - [id number] ID - Izabela Hanna comments: Slide comments: [id number] 07:02:00* Test Item Value Reference Range Interpretation Comments MAGNESIUM (BEAKER) (test code = 627) 2.1 mg/dL 1.6-2.6 Compotype Operator ID - PIAYA LBASIC METABOLIC [id number] 07:02:00* Test Item Value Reference Range Interpretation Comments SODIUM (BEAKER) (test code = 381) 138 meq/L 136-145 POTASSIUM (BEAKER) (test code = 379) 4.2 meq/L 3.5-5.1 CHLORIDE (BEAKER) (test code = 382) 111 meq/L 98-107 H CO2 (BEAKER) (test code = 355) 20 meq/L 22-29 L BLOOD UREA NITROGEN (BEAKER) (test code = 354) 15 mg/dL 7-21 CREATININE (BEAKER) (test code = 358) 0.66 mg/dL 0.57-1.25 GLUCOSE RANDOM (BEAKER) (test code = 652) 85 mg/dL 70-105 CALCIUM (BEAKER) (test code = 697) 8.8 mg/dL 8.4-10.2 EGFR (BEAKER) (test code = 1092) 91 mL/min/1.73 sq m ESTIMATED GFR IS NOT ACCURATE CREATININE CLEARANCE IN PREDICTING GLOMERULAR FILTRATION RATE. ESTIMATED GFR IS NOT APPLICABLE FOR DIALYSIS PATIENTS. Compotype Operator ID - PIAYA LCBC W/PLT COUNT & AUTO [id number] 10:54:00* Test Item Value Reference Range Interpretation Comments WHITE BLOOD CELL COUNT (BEAKER) (test code = 775) 0.1 K/ L 3.5- 10.5 LL RED BLOOD CELL COUNT (BEAKER) (test code = 761) 2.59 M/ L 3.93-5 .22 L HEMOGLOBIN (BEAKER) (test code = 410) 7.6 GM/DL 11.2-15.7 L HEMATOCRIT (BEAKER) (test code = 411) 23.1 % 34.1-44.9 L MEAN CORPUSCULAR VOLUME (BEAKER) (test code = 753) 89.2 fL 79. 4-94.8 MEAN CORPUSCULAR HEMOGLOBIN (BEAKER) (test code = 751) 29.3 pg 25.6-32.2 MEAN CORPUSCULAR HEMOGLOBIN CONC (BEAKER) (test code = 752) 32.9 GM/DL 32.2-35.5 RED CELL DISTRIBUTION WIDTH (BEAKER) (test code = 412) 14.9 % 11.7-14.4 H PLATELET COUNT (BEAKER) (test code = 756) 22 K/CU MM 150-450 L MEAN PLATELET VOLUME (BEAKER) (test code = 754) 11.4 fL 9.4-12 .3 NUCLEATED RED BLOOD CELLS (BEAKER) (test code = 413) 0 /100 WBC 0 -0 (MANUAL DIFFERENTIAL)2019-12-30 10:54:00* Test Item Value Reference Range Interpretation Comments LYMPHOCYTES - REL (DIFF) (BEAKER) (test code = 1360) 95 % MONOCYTES - REL (DIFF) (BEAKER) (test code = 1361) 4 % EOSINOPHILS - REL (DIFF) (BEAKER) (test code = 1362) 1 % LYMPHOCYTES - ABS (DIFF) (BEAKER) (test code = 1366) 0.10 K/ L 1 .48-4.50 L MONOCYTES - ABS (DIFF) (BEAKER) (test code = 1367) 0.00 K/ L 0.0 0-1.30 EOSINOPHILS - ABS (DIFF) (BEAKER) (test code = 1368) 0.00 K/ L 0 .00-0.50 TOTAL COUNTED (BEAKER) (test code = 1351) 100 PLT MORPHOLOGY (BEAKER) (test code = 486) Normal ATYPICAL LYMPHS(BEAKER) (test code = 1678) Present ANISOCYTOSIS (BEAKER) (test code = 961) 1+ few MICROCYTES (BEAKER) (test code = 965) 1+ few OVALOCYTES (BEAKER) (test code = 477) 1+ few POIKILOCYTES (BEAKER) (test code = 966) 1+ few [id number] 06:43:00* Test Item Value Reference Range Interpretation Comments MAGNESIUM (BEAKER) (test code = 627) 2.1 mg/dL 1.6-2.6 Compotype Operator HUNG - WU LBASIC METABOLIC [id number] 06:43:00* Test Item Value Reference Range Interpretation Comments SODIUM (BEAKER) (test code = 381) 141 meq/L 136-145 POTASSIUM (BEAKER) (test code = 379) 3.3 meq/L 3.5-5.1 L CHLORIDE (BEAKER) (test code = 382) 111 meq/L 98-107 H CO2 (BEAKER) (test code = 355) 25 meq/L 22-29 BLOOD UREA NITROGEN (BEAKER) (test code = 354) 14 mg/dL 7-21 CREATININE (BEAKER) (test code = 358) 0.69 mg/dL 0.57-1.25 GLUCOSE RANDOM (BEAKER) (test code = 652) 89 mg/dL 70-105 CALCIUM (BEAKER) (test code = 697) 8.6 mg/dL 8.4-10.2 EGFR (BEAKER) (test code = 1092) 87 mL/min/1.73 sq m ESTIMATED GFR IS NOT ACCURATE CREATININE CLEARANCE IN PREDICTING GLOMERULAR FILTRATION RATE. ESTIMATED GFR IS NOT APPLICABLE FOR DIALYSIS PATIENTS. Compotype Operator ID - PIAYA LRespiratory Panel [id number] 22:37:00* Test Item Value Reference Range Interpretation Comments Human Metapneumovirus (test code = 29383-3) Not detected Not detected, Equivocal Rhinovirus (test code = 53715-0) Not detected Not detected, Equivoc al INFLUENZA A (NO SUBTYPE) (test code = 14245-5) Not detected Not detected, Equivocal Influenza A subtype H1 (test code = 61064-1) Influenza A Subtype H3 (test code = 79977-8) Influenza A Subtype H1-2009 (test code = 45947-5) Influenza B (test code = 49868-1) Not detected Not detected, Equivo juan Respiratory Syncytial Virus (test code = 84327-4) Not detect ed Not detected, Equivocal Parainfluenza Virus 1 (test code = 58839-4) Not detected Not detected, Equivocal Parainfluenza Virus 2 (test code = 85783-6) Not detected Not detected, Equivocal Parainfluenza virus 3 (test code = 41504-9) Not detected Not detected, Equivocal Parainfluenza Virus 4 (test code = 79048-3) Not detected Not detected, Equivocal Adenovirus (test code = 99735-9) Not detected Not detected, Equivoc al Coronavirus 229E (test code = 73882-4) Not detected Not detected, E quivocal Coronavirus HKU1 (test code = 92700-3) Not detected Not detected, E quivocal Coronavirus NL63 (test code = 57912-7) Not detected Not detected, E quivocal Coronavirus OC43 (test code = 31830-0) Not detected Not detected, E quivocal Bordetella Pertussis (test code = 37101-5) Not detected Not d etected, Equivocal Chlamydophila Pneumoniae (test code = 19919-7) Not detected Not detected, Equivocal Mycoplasma Pneumoniae (test code = 51094-8) Not detected Not detected, Equivocal KO (test code = KO) Other viruses and bacteria n ot targeted by this PCR panel cannot be excluded; therefore clinical correlation and follow up of serology, culture results, and other molecular studies is required. The results are not intended to be used as the sole means for clinical diagnosis or patient management decisions. This sample was tested at the [facility] using the Energy[employer] Respiratory Panel. It is FDA cleared and has been verified and approved by the [facility] for clinical use on nasopharyngeal swab specimens. The performance of the FilmArra y RP has not been established in individuals who received influenza vaccine. Recent administration of a nasal influenza vaccine may cause false positive results for Influenza A and/orInfluenza B. [facility] [id number] 22:37:00* Test Item Value Reference Range Interpretation Comments HUMAN METAPNEUMOVIRUS (BEAKER) (test code = 2683) Not detect ed Not detected, Equivocal RHINOVIRUS (BEAKER) (test code = 2684) Not detected Not detected, E quivocal INFLUENZA A (BEAKER) (test code = 2685) Not detected Not detected, Equivocal INFLUENZA A (NO SUBTYPE) (test code = 3606) INFLUENZA A SUBTYPE H1 (BEAKER) (test code = 2686) INFLUENZA A SUBTYPE H3 (BEAKER) (test code = 2687) INFLUENZA A SUBTYPE H1-2009 (BEAKER) (test code = 3198) INFLUENZA B (BEAKER) (test code = 2688) Not detected Not detected, Equivocal RESPIRATORY SYNCYTIAL VIRUS (BEAKER) (test code = 3199) Not detected Not detected, Equivocal PARAINFLUENZA VIRUS 1 (BEAKER) (test code = 2691) Not detect ed Not detected, Equivocal PARAINFLUENZA VIRUS 2 (BEAKER) (test code = 2692) Not detect ed Not detected, Equivocal PARAINFLUENZA VIRUS 3 (BEAKER) (test code = 2693) Not detect ed Not detected, Equivocal PARAINFLUENZA VIRUS 4 (BEAKER) (test code = 3200) Not detect ed Not detected, Equivocal ADENOVIRUS (BEAKER) (test code = 2694) Not detected Not detected, E quivocal CORONAVIRUS 229E (BEAKER) (test code = 3201) Not detected Not detected, Equivocal CORONAVIRUS HKU1 (BEAKER) (test code = 3202) Not detected Not detected, Equivocal CORONAVIRUS NL63 (BEAKER) (test code = 3203) Not detected Not detected, Equivocal CORONAVIRUS OC43 (BEAKER) (test code = 3204) Not detected Not detected, Equivocal BORDETELLA PERTUSSIS (BEAKER) (test code = 3205) Not detecte d Not detected, Equivocal CHLAMYDOPHILA PNEUMONIAE (BEAKER) (test code = 3206) Not det ected Not detected, Equivocal MYCOPLASMA PNEUMONIAE (BEAKER) (test code = 3207) Not detect ed Not detected, Equivocal Other viruses and bacteria not targeted by this PCR panel cannot be excluded; th erefore clinical correlation and follow up of serology, culture results, and oth er molecular studies is required. The results are not intended to be used as the sole means for clinical diagnosis or patient management decisions. This sample was tested at the [facility] using the [employer] FilmA rray Respiratory Panel. It is FDA cleared and has been verified and approved by the [facility] for clinical use on nasopharyngeal sw ab specimens.The performance of the FilmArray RP has not been established in ind ividuals who received influenza vaccine. Recent administration of a nasal influ sol vaccine may cause false positive results for Influenza A and/orInfluenza B. SARS-COV2/RT-PCR ([facility])2019-12-29 22:10:00* Test Item Value Reference Range Interpretation Comments SARS-COV2/RT-PCR (test code = 9817563) Negative N ot Detected, Negative, See external report for linked test SARS-COV-2 PERFORMING LAB (test code = 6811850) [facility] Negative results do not preclude SARS-CoV-2 infection and should not be used as the sole basis for patient management decisions. Negative results must be combin ed with clinical observations, patient history, and epidemiological information. A false negative result may occur if a specimen is improperly collected, transp orted or handled.The limit of detection for this assay is 250 copies/mL.This [facility] CoV-2 test is a rapid, real-time RT-PCR test intended for the qualitative dete ction of nucleic acid from SARS-CoV-2 in a nasopharyngeal swab specimen collecte d from individuals suspected of COVID-19 by their healthcare provider.This test has not been Food and Drug Administration (FDA) cleared or approved and has been authorized by FDA under an Emergency Use Authorization (EUA). This EUA will be effective until the declaration that circumstances exist justifying the authoriz ation of the emergency use of in vitro diagnostic tests for detection and/or natanael gnosis of COVID-19 is terminated under Section 564(b)(2) of the Act or the EUA i s revoked under Section 564(g) of the Act.Fact Sheet for Healthcare Providers:ht tps://www.[employer]/Documents/Xpert%20Xpress%20SARS%20CoV-2/Fact%20Sheets/302- 3802%01ZNHL-JZG-4%20HEALTHCARE%20PROVIDERS%20FACT%20SHEET.pdfFact Sheet for Heal thcare Patients:https://www.[employer]/Documents/Xpert%20Xpress%20SARS%20CoV-2/ Fact%20Sheets/302-3801%65TPGA-KXZ-7%20PATIENT%20FACT%20SHEET.pdfPerforming Labor atory:[facility], [place] [address]GZSGJN ACID, [id number] 21:01:00* Test Item Value Reference Range Interpretation Comments LACTATE BLOOD VENOUS (2) (BEAKER) (test code = 2872) 0.91 mmol/L 0 .50-2.20 Compotype Operator ID - NTPURINALYSIS W/ REFLEX URINE [id number] 19:29:00* Test Item Value Reference Range Interpretation Comments COLOR (BEAKER) (test code = 470) Light Yellow CLARITY (BEAKER) (test code = 469) Clear SPECIFIC GRAVITY UA (BEAKER) (test code = 468) 1.012 1.001-1 .035 PH UA (BEAKER) (test code = 467) 6.5 5.0-8.0 PROTEIN UA (BEAKER) (test code = 464) Negative Negative GLUCOSE UA (BEAKER) (test code = 365) Negative Negative KETONES UA (BEAKER) (test code = 371) Negative Negative BILIRUBIN UA (BEAKER) (test code = 462) Negative Negative BLOOD UA (BEAKER) (test code = 461) Negative Negative NITRITE UA (BEAKER) (test code = 465) Negative Negative LEUKOCYTE ESTERASE UA (BEAKER) (test code = 466) Moderate Negat neetu A UROBILINOGEN UA (BEAKER) (test code = 463) 0.2 mg/dL 0.2-1.0 RBC UA (BEAKER) (test code = 519) < /HPF WBC UA (BEAKER) (test code = 520) 1 /HPF MUCUS (BEAKER) (test code = 1574) Rare SOURCE(BEAKER) (test code = 2795) Compotype Operator ID - [auto]Compotype Operator ID - tech(CELLAVISION MANUAL DIFF)2019-12-29 19:27:00* Test Item Value Reference Range Interpretation Comments NEUTROPHILS - REL (CELLAVISION)(BEAKER) (test code = 2816) 1 % LYMPHOCYTES - REL (CELLAVISION)(BEAKER) (test code = 2817) 86 % MONOCYTES - REL (CELLAVISION)(BEAKER) (test code = 2818) 6 % EOSINOPHILS - REL (CELLAVISION)(BEAKER) (test code = 2819) 1 % ATYPICAL LYMPHOCYTES - REL (CELLAVISION)(BEAKER) (test code = 2829) 6 % 0-0 H NEUTROPHILS - ABS (CELLAVISION)(BEAKER) (test code = 2830) 0.00 K/ul 1.56-6.13 L LYMPHOCYTES - ABS (CELLAVISION)(BEAKER) (test code = 2831) 0.09 K/ul 1.18-3.74 L MONOCYTES - ABS (CELLAVISION)(BEAKER) (test code = 2832) 0.01 K/uL 0.24-0.36 L EOSINOPHILS - ABS (CELLAVISION)(BEAKER) (test code = 2834) 0.00 K/uL 0.04-0.36 L ATYPICAL LYMPHOCYTES - ABS (CELLAVISION)(BEAKER) (test code = 2858) 0.01 K/uL 0.00-0.00 H TOTAL COUNTED (BEAKER) (test code = 1351) 100 WBC MORPHOLOGY (BEAKER) (test code = 487) Normal GIANT PLATELETS (BEAKER) (test code = 313) Present ANISOCYTOSIS (BEAKER) (test code = 961) 1+ few ELLIPTOCYTES (BEAKER) (test code = 962) 1+ few ARTIFACT (CELLAVISION)(BEAKER) (test code = 3432) Present PLATELET CONCENTRATION (CELLAVISION)(BEAKER) (test code = 3438) Dec reased Buffy coat differentialCOMPREHENSIVE METABOLIC [id number] 18:44:00* Test Item Value Reference Range Interpretation Comments TOTAL PROTEIN (BEAKER) (test code = 770) 6.1 gm/dL 6.0-8.3 ALBUMIN (BEAKER) (test code = 1145) 3.7 g/dL 3.5-5.0 ALKALINE PHOSPHATASE (BEAKER) (test code = 346) 73 U/L 40-150 BILIRUBIN TOTAL (BEAKER) (test code = 377) 0.5 mg/dL 0.2-1.2 SODIUM (BEAKER) (test code = 381) 136 meq/L 136-145 POTASSIUM (BEAKER) (test code = 379) 3.7 meq/L 3.5-5.1 CHLORIDE (BEAKER) (test code = 382) 107 meq/L 98-107 CO2 (BEAKER) (test code = 355) 24 meq/L 22-29 BLOOD UREA NITROGEN (BEAKER) (test code = 354) 15 mg/dL 7-21 CREATININE (BEAKER) (test code = 358) 0.70 mg/dL 0.57-1.25 GLUCOSE RANDOM (BEAKER) (test code = 652) 93 mg/dL 70-105 CALCIUM (BEAKER) (test code = 697) 8.6 mg/dL 8.4-10.2 AST (SGOT) (BEAKER) (test code = 353) 20 U/L 5-34 ALT (SGPT) (BEAKER) (test code = 347) 26 U/L 6-55 EGFR (BEAKER) (test code = 1092) 85 mL/min/1.73 sq m ESTIMATED GFR IS NOT ACCURATE CREATININE CLEARANCE IN PREDICTING GLOMERULAR FILTRATION RATE. ESTIMATED GFR IS NOT APPLICABLE FOR DIALYSIS PATIENTS. Compotype Operator ID - NTPLACTIC ACID, [id number] 18:37:00* Test Item Value Reference Range Interpretation Comments LACTATE BLOOD VENOUS (2) (BEAKER) (test code = 2872) 0.64 mmol/L 0 .50-2.20 Compotype Operator ID - [id number] 18:34:00* Test Item Value Reference Range Interpretation Comments PTT (test code = 55587-4) 35.6 22.5- 36.0 seconds Lab Interpretation (test code = 51878-4) [facility]* Test Item Value Reference Range Interpretation Comments PARTIAL THROMBOPLASTIN TIME (BEAKER) (test code = 760) 35.6 seconds 22.5-36.0 PROTHROMBIN [id number] 18:33:00* Test Item Value Reference Range Interpretation Comments PROTIME (BEAKER) (test code = 759) 13.6 seconds 11.9-14.2 INR (BEAKER) (test code = 370) 1.1 <=5.9 Effective 10/25/2018: PT Reference Range ChangeNew: 11.9-14.2 Previous: 11.7-14. 7RECOMMENDED COUMADIN/WARFARIN INR THERAPY RANGESSTANDARD DOSE: 2.0-3.0 Include s: PROPHYLAXIS for venous thrombosis, systemic embolization; TREATMENT for venou s thrombosis and/or pulmonary embolus.HIGH RISK: Target INR is 2.5-3.5 for patie nts wiht mechanical heart valves.CBC W/PLT COUNT & AUTO [id number] 18:31:00* Test Item Value Reference Range Interpretation Comments WHITE BLOOD CELL COUNT (BEAKER) (test code = 775) 0.1 K/ L 3.5- 10.5 LL RED BLOOD CELL COUNT (BEAKER) (test code = 761) 2.33 M/ L 3.93-5 .22 L HEMOGLOBIN (BEAKER) (test code = 410) 6.8 GM/DL 11.2-15.7 L HEMATOCRIT (BEAKER) (test code = 411) 20.8 % 34.1-44.9 L MEAN CORPUSCULAR VOLUME (BEAKER) (test code = 753) 89.3 fL 79. 4-94.8 MEAN CORPUSCULAR HEMOGLOBIN (BEAKER) (test code = 751) 29.2 pg 25.6-32.2 MEAN CORPUSCULAR HEMOGLOBIN CONC (BEAKER) (test code = 752) 32.7 GM/DL 32.2-35.5 RED CELL DISTRIBUTION WIDTH (BEAKER) (test code = 412) 15.1 % 11.7-14.4 H PLATELET COUNT (BEAKER) (test code = 756) 26 K/CU MM 150-450 L MEAN PLATELET VOLUME (BEAKER) (test code = 754) 10.0 fL 9.4-12 .3 NUCLEATED RED BLOOD CELLS (BEAKER) (test code = 413) 0 /100 WBC 0 -0 RAD, CHEST, 1 VIEW, NON [id number] 17:31:00Reason for exam:->feverShould this be performed at the bedside?->YesFINAL REPORT RAD, CHEST, 1 VIEW, NON DEPT TECHNIQUE: Frontal view of the chest. INDICATION: fever. COMPARISON: Chest radiograph December 17, 2019 FINDINGS/IMPRESSION: Lines/Tubes: Unchanged right arm PICC terminating in the upper SVC. Lungs: Similar to slightly improved hazy and streaky right midlung opacity. Unchanged streaky left suprahilar opacity. Pleura: No pneumothorax or significant pleural effusion. Heart and Mediastinum: The cardiac silhouette is unchanged. Soft Tissues and Bones: Unchanged. Signed: Hao Taveras MDRanupamort Verified Date/Time: 12/29/2019 17:31:17 Reading Location: [facility] [id number] Ortho Consult Reading Room ICAL CARE 2019-12-29 16:51:08Param Benitez MD 12/29/2019 6:55 PMCritical CarePerformed by: Param Benitez MDAuthorized by: Param Benitez MD Total critical care time: 71 minutesCritical care was necessary to treat or prevent imminent or life-threatening deterioration of the following conditions: sepsis.Critical care was time spent personally by me on the following activities: discussions with primary provider, interpretation of cardiac output measurements, examination of patient, ordering and performing treatments and interventions, ordering and review of radiographic studies, re-evaluation of patient's condition, development of treatment plan with patient or surrogate, review of old charts, pulse oximetry, ordering and review of laboratory studies, obtaining history from patient or surrogate, evaluation of patient's response to treatment and discussions with consultants. [facility] WOUND CULTURE + GRAM [id number] 09:08:00* Test Item Value Reference Range Interpretation Comments CULTURE (BEAKER) (test code = 1095) FUSARIUM SPECIES A 3 out of 3 media Fusarium speciesSusceptibility performed by:[facility] [place], Dept. of Pathology, [facility], [address] [place] [id number] Amphotericin B (test code = 136) Voriconazole (test code = 153) GRAM STAIN RESULT (BEAKER) (test code = 1123) No white blood cells seen GRAM STAIN RESULT (BEAKER) (test code = 876693) No organisms seen CBC W/PLT COUNT & AUTO [id number] 09:48:00* Test Item Value Reference Range Interpretation Comments WHITE BLOOD CELL COUNT (BEAKER) (test code = 775) 1.2 K/ L 3.5- 10.5 L RED BLOOD CELL COUNT (BEAKER) (test code = 761) 2.46 M/ L 3.93-5 .22 L HEMOGLOBIN (BEAKER) (test code = 410) 7.2 GM/DL 11.2-15.7 L HEMATOCRIT (BEAKER) (test code = 411) 23.6 % 34.1-44.9 L MEAN CORPUSCULAR VOLUME (BEAKER) (test code = 753) 95.9 fL 79. 4-94.8 H MEAN CORPUSCULAR HEMOGLOBIN (BEAKER) (test code = 751) 29.3 pg 25.6-32.2 MEAN CORPUSCULAR HEMOGLOBIN CONC (BEAKER) (test code = 752) 30.5 GM/DL 32.2-35.5 L RED CELL DISTRIBUTION WIDTH (BEAKER) (test code = 412) 17.6 % 11.7-14.4 H PLATELET COUNT (BEAKER) (test code = 756) 89 K/CU MM 150-450 L MEAN PLATELET VOLUME (BEAKER) (test code = 754) 9.8 fL 9.4-12 .3 NUCLEATED RED BLOOD CELLS (BEAKER) (test code = 413) 0 /100 WBC 0 -0 (CELLAVISION MANUAL DIFF)2019-12-22 09:48:00* Test Item Value Reference Range Interpretation Comments NEUTROPHILS - REL (CELLAVISION)(BEAKER) (test code = 2816) 98 % LYMPHOCYTES - REL (CELLAVISION)(BEAKER) (test code = 2817) 1 % BANDS - REL (CELLAVISION)(BEAKER) (test code = 2826) 1 % 0 -10 NEUTROPHILS - ABS (CELLAVISION)(BEAKER) (test code = 2830) 1.18 K/ul 1.56-6.13 L LYMPHOCYTES - ABS (CELLAVISION)(BEAKER) (test code = 2831) 0.01 K/ul 1.18-3.74 L BANDS - ABS (CELLAVISION)(BEAKER) (test code = 2840) 0.01 K/uL 0 .00-0.80 TOTAL COUNTED (BEAKER) (test code = 1351) 100 PLT MORPHOLOGY (BEAKER) (test code = 486) Normal TOXIC GRANULATION (BEAKER) (test code = 771) Present HYPOCHROMIA (BEAKER) (test code = 963) 1+ few ANISOCYTOSIS (BEAKER) (test code = 961) 2+ moderate MACROCYTES (BEAKER) (test code = 964) 1+ few ARTIFACT (CELLAVISION)(BEAKER) (test code = 3432) Present PLATELET CONCENTRATION (CELLAVISION)(BEAKER) (test code = 3438) Dec reased Compotype Operator ID - Palak Engle comments: Slide comments: [id number] 05:57:00 * Test Item Value Reference Range Interpretation Comments MAGNESIUM (BEAKER) (test code = 627) 1.9 mg/dL 1.6-2.6 Compotype Operator ID - EDASICOMPREHENSIVE METABOLIC [id number] 05:57:00* Test Item Value Reference Range Interpretation Comments TOTAL PROTEIN (BEAKER) (test code = 770) 5.5 gm/dL 6.0-8.3 L ALBUMIN (BEAKER) (test code = 1145) 3.3 g/dL 3.5-5.0 L ALKALINE PHOSPHATASE (BEAKER) (test code = 346) 69 U/L 40-150 BILIRUBIN TOTAL (BEAKER) (test code = 377) 0.4 mg/dL 0.2-1.2 SODIUM (BEAKER) (test code = 381) 139 meq/L 136-145 POTASSIUM (BEAKER) (test code = 379) 3.9 meq/L 3.5-5.1 CHLORIDE (BEAKER) (test code = 382) 110 meq/L 98-107 H CO2 (BEAKER) (test code = 355) 26 meq/L 22-29 BLOOD UREA NITROGEN (BEAKER) (test code = 354) 18 mg/dL 7-21 CREATININE (BEAKER) (test code = 358) 0.63 mg/dL 0.57-1.25 GLUCOSE RANDOM (BEAKER) (test code = 652) 127 mg/dL 70-105 H CALCIUM (BEAKER) (test code = 697) 8.5 mg/dL 8.4-10.2 AST (SGOT) (BEAKER) (test code = 353) 30 U/L 5-34 ALT (SGPT) (BEAKER) (test code = 347) 34 U/L 6-55 EGFR (BEAKER) (test code = 1092) 96 mL/min/1.73 sq m ESTIMATED GFR IS NOT ACCURATE CREATININE CLEARANCE IN PREDICTING GLOMERULAR FILTRATION RATE. ESTIMATED GFR IS NOT APPLICABLE FOR DIALYSIS PATIENTS. Compotype Operator ID - EDASICBC W/PLT COUNT & AUTO [id number] 11:55:00* Test Item Value Reference Range Interpretation Comments WHITE BLOOD CELL COUNT (BEAKER) (test code = 775) 4.2 K/ L 3.5- 10.5 RED BLOOD CELL COUNT (BEAKER) (test code = 761) 2.36 M/ L 3.93-5 .22 L HEMOGLOBIN (BEAKER) (test code = 410) 7.0 GM/DL 11.2-15.7 L HEMATOCRIT (BEAKER) (test code = 411) 22.6 % 34.1-44.9 L MEAN CORPUSCULAR VOLUME (BEAKER) (test code = 753) 95.8 fL 79. 4-94.8 H MEAN CORPUSCULAR HEMOGLOBIN (BEAKER) (test code = 751) 29.7 pg 25.6-32.2 MEAN CORPUSCULAR HEMOGLOBIN CONC (BEAKER) (test code = 752) 31.0 GM/DL 32.2-35.5 L RED CELL DISTRIBUTION WIDTH (BEAKER) (test code = 412) 18.0 % 11.7-14.4 H PLATELET COUNT (BEAKER) (test code = 756) 109 K/CU MM 150-450 L MEAN PLATELET VOLUME (BEAKER) (test code = 754) 10.1 fL 9.4-12 .3 NUCLEATED RED BLOOD CELLS (BEAKER) (test code = 413) 0 /100 WBC 0 -0 (CELLAVISION MANUAL DIFF)2019-12-21 11:55:00* Test Item Value Reference Range Interpretation Comments NEUTROPHILS - REL (CELLAVISION)(BEAKER) (test code = 2816) 98 % LYMPHOCYTES - REL (CELLAVISION)(BEAKER) (test code = 2817) 1 % EOSINOPHILS - REL (CELLAVISION)(BEAKER) (test code = 2819) 1 % NEUTROPHILS - ABS (CELLAVISION)(BEAKER) (test code = 2830) 4.12 K/ul 1.56-6.13 LYMPHOCYTES - ABS (CELLAVISION)(BEAKER) (test code = 2831) 0.04 K/ul 1.18-3.74 L EOSINOPHILS - ABS (CELLAVISION)(BEAKER) (test code = 2834) 0.04 K/uL 0.04-0.36 TOTAL COUNTED (BEAKER) (test code = 1351) 100 SMUDGE CELLS (BEAKER) (test code = 1371) Present GIANT PLATELETS (BEAKER) (test code = 313) Present ANISOCYTOSIS (BEAKER) (test code = 961) 1+ few MICROCYTES (BEAKER) (test code = 965) 1+ few TEAR DROP CELLS (BEAKER) (test code = 481) 1+ few PLATELET CONCENTRATION (CELLAVISION)(BEAKER) (test code = 3438) Dec reased Compotype Operator ID - [id number] ID - Kb Daniels comments: Slide comments: MAGNESIUM 2019-12-21 06:29:00* Test Item Value Reference Range Interpretation Comments MAGNESIUM (BEAKER) (test code = 627) 1.9 mg/dL 1.6-2.6 Compotype Operator ID - EDASICOMPREHENSIVE METABOLIC [id number] 06:29:00* Test Item Value Reference Range Interpretation Comments TOTAL PROTEIN (BEAKER) (test code = 770) 5.6 gm/dL 6.0-8.3 L ALBUMIN (BEAKER) (test code = 1145) 3.3 g/dL 3.5-5.0 L ALKALINE PHOSPHATASE (BEAKER) (test code = 346) 72 U/L 40-150 BILIRUBIN TOTAL (BEAKER) (test code = 377) 0.6 mg/dL 0.2-1.2 SODIUM (BEAKER) (test code = 381) 141 meq/L 136-145 POTASSIUM (BEAKER) (test code = 379) 3.8 meq/L 3.5-5.1 CHLORIDE (BEAKER) (test code = 382) 111 meq/L 98-107 H CO2 (BEAKER) (test code = 355) 25 meq/L 22-29 BLOOD UREA NITROGEN (BEAKER) (test code = 354) 19 mg/dL 7-21 CREATININE (BEAKER) (test code = 358) 0.65 mg/dL 0.57-1.25 GLUCOSE RANDOM (BEAKER) (test code = 652) 92 mg/dL 70-105 CALCIUM (BEAKER) (test code = 697) 8.6 mg/dL 8.4-10.2 AST (SGOT) (BEAKER) (test code = 353) 27 U/L 5-34 ALT (SGPT) (BEAKER) (test code = 347) 30 U/L 6-55 EGFR (BEAKER) (test code = 1092) 93 mL/min/1.73 sq m ESTIMATED GFR IS NOT ACCURATE CREATININE CLEARANCE IN PREDICTING GLOMERULAR FILTRATION RATE. ESTIMATED GFR IS NOT APPLICABLE FOR DIALYSIS PATIENTS. Compotype Operator ID - EDASICBC W/PLT COUNT & AUTO [id number] 10:55:00* Test Item Value Reference Range Interpretation Comments WHITE BLOOD CELL COUNT (BEAKER) (test code = 775) 5.3 K/ L 3.5- 10.5 RED BLOOD CELL COUNT (BEAKER) (test code = 761) 2.50 M/ L 3.93-5 .22 L HEMOGLOBIN (BEAKER) (test code = 410) 7.2 GM/DL 11.2-15.7 L HEMATOCRIT (BEAKER) (test code = 411) 23.8 % 34.1-44.9 L MEAN CORPUSCULAR VOLUME (BEAKER) (test code = 753) 95.2 fL 79. 4-94.8 H MEAN CORPUSCULAR HEMOGLOBIN (BEAKER) (test code = 751) 28.8 pg 25.6-32.2 MEAN CORPUSCULAR HEMOGLOBIN CONC (BEAKER) (test code = 752) 30.3 GM/DL 32.2-35.5 L RED CELL DISTRIBUTION WIDTH (BEAKER) (test code = 412) 18.7 % 11.7-14.4 H PLATELET COUNT (BEAKER) (test code = 756) 106 K/CU MM 150-450 L MEAN PLATELET VOLUME (BEAKER) (test code = 754) 10.2 fL 9.4-12 .3 NUCLEATED RED BLOOD CELLS (BEAKER) (test code = 413) 0 /100 WBC 0 -0 (CELLAVISION MANUAL DIFF)2019-12-20 10:55:00* Test Item Value Reference Range Interpretation Comments NEUTROPHILS - REL (CELLAVISION)(BEAKER) (test code = 2816) 97 % LYMPHOCYTES - REL (CELLAVISION)(BEAKER) (test code = 2817) 1 % MONOCYTES - REL (CELLAVISION)(BEAKER) (test code = 2818) 1 % NEUTROPHILS - ABS (CELLAVISION)(BEAKER) (test code = 2830) 5.14 K/ul 1.56-6.13 LYMPHOCYTES - ABS (CELLAVISION)(BEAKER) (test code = 2831) 0.05 K/ul 1.18-3.74 L MONOCYTES - ABS (CELLAVISION)(BEAKER) (test code = 2832) 0.05 K/uL 0.24-0.36 L TOTAL COUNTED (BEAKER) (test code = 1351) 100 PLT MORPHOLOGY (BEAKER) (test code = 486) Normal TOXIC GRANULATION (BEAKER) (test code = 771) Present HYPERSEGMENTATION (CELLAVISION)(BEAKER) (test code = 3445) Present HYPOCHROMIA (BEAKER) (test code = 963) 1+ few ANISOCYTOSIS (BEAKER) (test code = 961) 1+ few MACROCYTES (BEAKER) (test code = 964) 1+ few ARTIFACT (CELLAVISION)(BEAKER) (test code = 3432) Present PLATELET CONCENTRATION (CELLAVISION)(BEAKER) (test code = 3438) Dec reased Compotype Operator ID - Palak Engle comments: Slide comments: [id number] 05:57:00 * Test Item Value Reference Range Interpretation Comments MAGNESIUM (BEAKER) (test code = 627) 1.9 mg/dL 1.6-2.6 Compotype Operator ID - EDASICOMPREHENSIVE METABOLIC [id number] 05:57:00* Test Item Value Reference Range Interpretation Comments TOTAL PROTEIN (BEAKER) (test code = 770) 5.8 gm/dL 6.0-8.3 L ALBUMIN (BEAKER) (test code = 1145) 3.4 g/dL 3.5-5.0 L ALKALINE PHOSPHATASE (BEAKER) (test code = 346) 81 U/L 40-150 BILIRUBIN TOTAL (BEAKER) (test code = 377) 0.6 mg/dL 0.2-1.2 SODIUM (BEAKER) (test code = 381) 142 meq/L 136-145 POTASSIUM (BEAKER) (test code = 379) 4.4 meq/L 3.5-5.1 CHLORIDE (BEAKER) (test code = 382) 114 meq/L 98-107 H CO2 (BEAKER) (test code = 355) 23 meq/L 22-29 BLOOD UREA NITROGEN (BEAKER) (test code = 354) 16 mg/dL 7-21 CREATININE (BEAKER) (test code = 358) 0.64 mg/dL 0.57-1.25 GLUCOSE RANDOM (BEAKER) (test code = 652) 127 mg/dL 70-105 H CALCIUM (BEAKER) (test code = 697) 8.6 mg/dL 8.4-10.2 AST (SGOT) (BEAKER) (test code = 353) 40 U/L 5-34 H ALT (SGPT) (BEAKER) (test code = 347) 37 U/L 6-55 EGFR (BEAKER) (test code = 1092) 95 mL/min/1.73 sq m ESTIMATED GFR IS NOT ACCURATE CREATININE CLEARANCE IN PREDICTING GLOMERULAR FILTRATION RATE. ESTIMATED GFR IS NOT APPLICABLE FOR DIALYSIS PATIENTS. Compotype Operator ID - EDASICBC W/PLT COUNT & AUTO [id number] 11:11:00* Test Item Value Reference Range Interpretation Comments WHITE BLOOD CELL COUNT (BEAKER) (test code = 775) 23.9 K/ L 3.5- 10.5 H RED BLOOD CELL COUNT (BEAKER) (test code = 761) 2.71 M/ L 3.93-5 .22 L HEMOGLOBIN (BEAKER) (test code = 410) 8.2 GM/DL 11.2-15.7 L HEMATOCRIT (BEAKER) (test code = 411) 25.8 % 34.1-44.9 L MEAN CORPUSCULAR VOLUME (BEAKER) (test code = 753) 95.2 fL 79. 4-94.8 H MEAN CORPUSCULAR HEMOGLOBIN (BEAKER) (test code = 751) 30.3 pg 25.6-32.2 MEAN CORPUSCULAR HEMOGLOBIN CONC (BEAKER) (test code = 752) 31.8 GM/DL 32.2-35.5 L RED CELL DISTRIBUTION WIDTH (BEAKER) (test code = 412) 18.7 % 11.7-14.4 H PLATELET COUNT (BEAKER) (test code = 756) 135 K/CU MM 150-450 L MEAN PLATELET VOLUME (BEAKER) (test code = 754) 9.9 fL 9.4-12 .3 NUCLEATED RED BLOOD CELLS (BEAKER) (test code = 413) 0 /100 WBC 0 -0 (CELLAVISION MANUAL DIFF)2019-12-19 11:11:00* Test Item Value Reference Range Interpretation Comments NEUTROPHILS - REL (CELLAVISION)(BEAKER) (test code = 2816) 97 % LYMPHOCYTES - REL (CELLAVISION)(BEAKER) (test code = 2817) 1 % MONOCYTES - REL (CELLAVISION)(BEAKER) (test code = 2818) 2 % NEUTROPHILS - ABS (CELLAVISION)(BEAKER) (test code = 2830) 23.18 K/ul 1.56-6.13 H LYMPHOCYTES - ABS (CELLAVISION)(BEAKER) (test code = 2831) 0.24 K/ul 1.18-3.74 L MONOCYTES - ABS (CELLAVISION)(BEAKER) (test code = 2832) 0.48 K/uL 0.24-0.36 H TOTAL COUNTED (BEAKER) (test code = 1351) 100 PLT MORPHOLOGY (BEAKER) (test code = 486) Normal TOXIC GRANULATION (BEAKER) (test code = 771) Present POLYCHROMATOPHILLIC RBCS(BEAKER) (test code = 478) 1+ few HYPOCHROMIA (BEAKER) (test code = 963) 1+ few ANISOCYTOSIS (BEAKER) (test code = 961) 1+ few MACROCYTES (BEAKER) (test code = 964) 1+ few POIKILOCYTES (BEAKER) (test code = 966) 1+ few OVALOCYTES (BEAKER) (test code = 477) 1+ few ARTIFACT (CELLAVISION)(BEAKER) (test code = 3432) Present PLATELET CONCENTRATION (CELLAVISION)(BEAKER) (test code = 3438) Dec reased Compotype Operator ID - Palak Engle comments: Slide comments: [id number] 06:49:00 * Test Item Value Reference Range Interpretation Comments PHOSPHORUS (BEAKER) (test code = 604) 3.6 mg/dL 2.3-4.7 Compotype Operator ID - [id number] 06:49:00* Test Item Value Reference Range Interpretation Comments MAGNESIUM (BEAKER) (test code = 627) 2.0 mg/dL 1.6-2.6 Compotype Operator ID - EDASICOMPREHENSIVE METABOLIC [id number] 06:49:00* Test Item Value Reference Range Interpretation Comments TOTAL PROTEIN (BEAKER) (test code = 770) 6.3 gm/dL 6.0-8.3 ALBUMIN (BEAKER) (test code = 1145) 3.6 g/dL 3.5-5.0 ALKALINE PHOSPHATASE (BEAKER) (test code = 346) 88 U/L 40-150 BILIRUBIN TOTAL (BEAKER) (test code = 377) 0.3 mg/dL 0.2-1.2 SODIUM (BEAKER) (test code = 381) 141 meq/L 136-145 POTASSIUM (BEAKER) (test code = 379) 4.0 meq/L 3.5-5.1 CHLORIDE (BEAKER) (test code = 382) 113 meq/L 98-107 H CO2 (BEAKER) (test code = 355) 20 meq/L 22-29 L BLOOD UREA NITROGEN (BEAKER) (test code = 354) 17 mg/dL 7-21 CREATININE (BEAKER) (test code = 358) 0.74 mg/dL 0.57-1.25 GLUCOSE RANDOM (BEAKER) (test code = 652) 110 mg/dL 70-105 H CALCIUM (BEAKER) (test code = 697) 8.8 mg/dL 8.4-10.2 AST (SGOT) (BEAKER) (test code = 353) 18 U/L 5-34 ALT (SGPT) (BEAKER) (test code = 347) 13 U/L 6-55 EGFR (BEAKER) (test code = 1092) 80 mL/min/1.73 sq m ESTIMATED GFR IS NOT ACCURATE CREATININE CLEARANCE IN PREDICTING GLOMERULAR FILTRATION RATE. ESTIMATED GFR IS NOT APPLICABLE FOR DIALYSIS PATIENTS. Compotype Operator ID - [id number] 05:24:00* Test Item Value Reference Range Interpretation Comments PHOSPHORUS (BEAKER) (test code = 604) 3.9 mg/dL 2.3-4.7 Compotype Operator ID - TALIB [id number] 05:24:00* Test Item Value Reference Range Interpretation Comments MAGNESIUM (BEAKER) (test code = 627) 2.1 mg/dL 1.6-2.6 Compotype Operator ID - TALIB WCOMPREHENSIVE METABOLIC [id number] 05:24:00* Test Item Value Reference Range Interpretation Comments TOTAL PROTEIN (BEAKER) (test code = 770) 6.3 gm/dL 6.0-8.3 ALBUMIN (BEAKER) (test code = 1145) 3.6 g/dL 3.5-5.0 ALKALINE PHOSPHATASE (BEAKER) (test code = 346) 93 U/L 40-150 BILIRUBIN TOTAL (BEAKER) (test code = 377) 0.2 mg/dL 0.2-1.2 SODIUM (BEAKER) (test code = 381) 141 meq/L 136-145 POTASSIUM (BEAKER) (test code = 379) 4.6 meq/L 3.5-5.1 CHLORIDE (BEAKER) (test code = 382) 113 meq/L 98-107 H CO2 (BEAKER) (test code = 355) 22 meq/L 22-29 BLOOD UREA NITROGEN (BEAKER) (test code = 354) 17 mg/dL 7-21 CREATININE (BEAKER) (test code = 358) 0.77 mg/dL 0.57-1.25 GLUCOSE RANDOM (BEAKER) (test code = 652) 146 mg/dL 70-105 H CALCIUM (BEAKER) (test code = 697) 8.9 mg/dL 8.4-10.2 AST (SGOT) (BEAKER) (test code = 353) 20 U/L 5-34 ALT (SGPT) (BEAKER) (test code = 347) 15 U/L 6-55 EGFR (BEAKER) (test code = 1092) 76 mL/min/1.73 sq m ESTIMATED GFR IS NOT ACCURATE CREATININE CLEARANCE IN PREDICTING GLOMERULAR FILTRATION RATE. ESTIMATED GFR IS NOT APPLICABLE FOR DIALYSIS PATIENTS. Compotype Operator ID - TALIB WCBC W/PLT COUNT & AUTO [id number] 05:17:00* Test Item Value Reference Range Interpretation Comments WHITE BLOOD CELL COUNT (BEAKER) (test code = 775) 8.4 K/ L 3.5- 10.5 RED BLOOD CELL COUNT (BEAKER) (test code = 761) 3.00 M/ L 3.93-5 .22 L HEMOGLOBIN (BEAKER) (test code = 410) 8.8 GM/DL 11.2-15.7 L HEMATOCRIT (BEAKER) (test code = 411) 28.8 % 34.1-44.9 L MEAN CORPUSCULAR VOLUME (BEAKER) (test code = 753) 96.0 fL 79. 4-94.8 H MEAN CORPUSCULAR HEMOGLOBIN (BEAKER) (test code = 751) 29.3 pg 25.6-32.2 MEAN CORPUSCULAR HEMOGLOBIN CONC (BEAKER) (test code = 752) 30.6 GM/DL 32.2-35.5 L RED CELL DISTRIBUTION WIDTH (BEAKER) (test code = 412) 18.5 % 11.7-14.4 H PLATELET COUNT (BEAKER) (test code = 756) 130 K/CU MM 150-450 L MEAN PLATELET VOLUME (BEAKER) (test code = 754) 10.2 fL 9.4-12 .3 NUCLEATED RED BLOOD CELLS (BEAKER) (test code = 413) 0 /100 WBC 0 -0 NEUTROPHILS RELATIVE PERCENT (BEAKER) (test code = 429) 92 % LYMPHOCYTES RELATIVE PERCENT (BEAKER) (test code = 430) 5 % MONOCYTES RELATIVE PERCENT (BEAKER) (test code = 431) 1 % EOSINOPHILS RELATIVE PERCENT (BEAKER) (test code = 432) 0 % BASOPHILS RELATIVE PERCENT (BEAKER) (test code = 437) 0 % NEUTROPHILS ABSOLUTE COUNT (BEAKER) (test code = 670) 7.69 K/ L 1.56-6.13 H LYMPHOCYTES ABSOLUTE COUNT (BEAKER) (test code = 414) 0.43 K/ L 1.18-3.74 L MONOCYTES ABSOLUTE COUNT (BEAKER) (test code = 415) 0.09 K/ L 0. 24-0.36 L EOSINOPHILS ABSOLUTE COUNT (BEAKER) (test code = 416) 0.01 K/ L 0.04-0.36 L BASOPHILS ABSOLUTE COUNT (BEAKER) (test code = 417) 0.01 K/ L 0. 01-0.08 IMMATURE GRANULOCYTES-RELATIVE PERCENT (BEAKER) (test code = 2801) 2 % 0-1 H SARS-COV2/RT-PCR ([facility] [place] [facility])2019-12-17 21:16:00* Test Item Value Reference Range Interpretation Comments SARS-COV2/RT-PCR (test code = 3102151) Negative N ot Detected, Negative, See external report for linked test SARS-COV-2 PERFORMING LAB (test code = 5591243) [facility] Negative result for this test determines that SARS-CoV-2 RNA was not present in the specimen above the Limit of Detection (LOD). However, Negative results do n ot preclude SARS-CoV-2 infection and should not be used as the sole basis for tr eatment or patient management decisions. Negative results must be combined with clinical observations, patient history, and epidemiological information. A false negative result may occur if a specimen is improperly collected, transported or handled. A false negative result should be considered if patient's recent expo sures or clinical presentation indicate that COVID-19 (SARS-CoV-2) is likely and diagnostic tests for other causes of illness are negative. Re-testing should b e considered in cases of suspected false negatives.The limit of detection for th is assay is 800 copies/mL.This SARS CoV-2 test is a real-time RT-PCR test intend ed for the qualitative detection of nucleic acid from SARS-CoV-2 in a nasopharyn geal swab specimen collected from individuals suspected of COVID-19 by their [facility] provider.This test has not been Food and Drug Administration (FDA) clear ed or approved. This is a modified version of an approved Emergency Use Authori zation (EUA) and is in the process of review by the FDA. Once authorized by [facility] FDA, the issued EUA will be effective until the declaration that circumstances exist justifying the authorization of the emergency use of in vitro diagnostic tests for detection and/or diagnosis of COVID-19 is terminated under Section 564 (b)(2) of the Act or the EUA is revoked under Section 564(g) of the Act.Fact She et for Healthcare Providers:https://www.[employer]/sites/default/files/product/d ocuments/Fakm_Iwzsv_EL_Yynulrcuz_Gavg_LZVO-CvM-5.pdfFact Sheet for Healthcare Pa dagmar:https://www.[employer]/sites/default/files/product/documents/Fact_Sheet_P qxknbdy_Izaj_RRLU-DbB-4.pdfPerforming Laboratory:[facility] [address], [place] [id number] 18:28:00* Test Item Value Reference Range Interpretation Comments PHOSPHORUS (BEAKER) (test code = 604) 4.0 mg/dL 2.3-4.7 Compotype Operator ID - BSHEPATIC FUNCTION [id number] 18:28:00* Test Item Value Reference Range Interpretation Comments TOTAL PROTEIN (BEAKER) (test code = 770) 6.8 gm/dL 6.0-8.3 ALBUMIN (BEAKER) (test code = 1145) 3.9 g/dL 3.5-5.0 BILIRUBIN TOTAL (BEAKER) (test code = 377) 0.3 mg/dL 0.2-1.2 BILIRUBIN DIRECT (BEAKER) (test code = 706) 0.2 mg/dL 0.1-0.5 ALKALINE PHOSPHATASE (BEAKER) (test code = 346) 96 U/L 40-150 AST (SGOT) (BEAKER) (test code = 353) 20 U/L 5-34 ALT (SGPT) (BEAKER) (test code = 347) 13 U/L 6-55 Compotype Operator ID - BSPROTHROMBIN TIME/[id number] 18:27:00* Test Item Value Reference Range Interpretation Comments PROTIME (BEAKER) (test code = 759) 15.1 seconds 11.9-14.2 H INR (BEAKER) (test code = 370) 1.2 <=5.9 Effective 10/25/2018: PT Reference Range ChangeNew: 11.9-14.2 Previous: 11.7-14. 7RECOMMENDED COUMADIN/WARFARIN INR THERAPY RANGESSTANDARD DOSE: 2.0-3.0 Include s: PROPHYLAXIS for venous thrombosis, systemic embolization; TREATMENT for venou s thrombosis and/or pulmonary embolus.HIGH RISK: Target INR is 2.5-3.5 for patie nts wiht mechanical heart valves.(CELLAVISION MANUAL DIFF)2019-12-17 17:45:00* Test Item Value Reference Range Interpretation Comments NEUTROPHILS - REL (CELLAVISION)(BEAKER) (test code = 2816) 76 % LYMPHOCYTES - REL (CELLAVISION)(BEAKER) (test code = 2817) 11 % MONOCYTES - REL (CELLAVISION)(BEAKER) (test code = 2818) 9 % EOSINOPHILS - REL (CELLAVISION)(BEAKER) (test code = 2819) 2 % BANDS - REL (CELLAVISION)(BEAKER) (test code = 2826) 2 % 0 -10 NEUTROPHILS - ABS (CELLAVISION)(BEAKER) (test code = 2830) 8.13 K/ul 1.56-6.13 H LYMPHOCYTES - ABS (CELLAVISION)(BEAKER) (test code = 2831) 1.18 K/ul 1.18-3.74 MONOCYTES - ABS (CELLAVISION)(BEAKER) (test code = 2832) 0.96 K/uL 0.24-0.36 H EOSINOPHILS - ABS (CELLAVISION)(BEAKER) (test code = 2834) 0.21 K/uL 0.04-0.36 BANDS - ABS (CELLAVISION)(BEAKER) (test code = 2840) 0.21 K/uL 0 .00-0.80 TOTAL COUNTED (BEAKER) (test code = 1351) 100 SMUDGE CELLS (BEAKER) (test code = 1371) Present GIANT PLATELETS (BEAKER) (test code = 313) Present LARGE PLT(BEAKER) (test code = 2156) Present POLYCHROMATOPHILLIC RBCS(BEAKER) (test code = 478) 1+ few ANISOCYTOSIS (BEAKER) (test code = 961) 1+ few MICROCYTES (BEAKER) (test code = 965) 1+ few POIKILOCYTES (BEAKER) (test code = 966) 1+ few SCHISTOCYTES (BEAKER) (test code = 765) 1+ few SPHEROCYTES (BEAKER) (test code = 768) 1+ few OVALOCYTES (BEAKER) (test code = 477) 1+ few TEAR DROP CELLS (BEAKER) (test code = 481) 1+ few ARTIFACT (CELLAVISION)(BEAKER) (test code = 3432) Present PLATELET CONCENTRATION (CELLAVISION)(BEAKER) (test code = 3438) Dec reased Compotype Operator ID - [id number] ID - [place] GurpreetfipourUsagustín comments: Slide comments: RAD, CHEST, 2 [id number] 17:12:00Reason for exam:->interval follow up for fungal pneumonia, AML patientShould this be performed at the bedside?->NoIs the patient ?->UnknownFINAL REPORT TECHNIQUE: Frontal and lateral views of the chest. INDICATION: 59-year-old woman with fungal pneumonia. COMPARISON: Chest radiograph 11/21/2019, chest CT 11/26/2019. FINDINGS: LINES/TUBES: Unchanged right upper extremity PICC. LUNGS: Lungs are well inflated. Persistent airspace opacities in both upper lobes. PLEURA: No pleural effusion or pneumothorax. HEART AND MEDIASTINUM: Cardiomediastinal silhouette is within normal limits. BONES AND SOFT TISSUES: Unremarkable. IMPRESSION:Persistent bilateral upper lobe airspace opacities. Signed: Vangie Lopez MDReport Verified Date/Time: 12/17/2019 17:12:04 Reading Location: [address] Consult Reading Room [id number] 16:14:00* Test Item Value Reference Range Interpretation Comments MAGNESIUM (BEAKER) (test code = 627) 2.1 mg/dL 1.6-2.6 Compotype Operator ID - BSCBC W/PLT COUNT & AUTO [id number] 16:01:00* Test Item Value Reference Range Interpretation Comments WHITE BLOOD CELL COUNT (BEAKER) (test code = 775) 10.7 K/ L 3.5- 10.5 H RED BLOOD CELL COUNT (BEAKER) (test code = 761) 3.10 M/ L 3.93-5 .22 L HEMOGLOBIN (BEAKER) (test code = 410) 9.0 GM/DL 11.2-15.7 L HEMATOCRIT (BEAKER) (test code = 411) 28.9 % 34.1-44.9 L MEAN CORPUSCULAR VOLUME (BEAKER) (test code = 753) 93.2 fL 79. 4-94.8 MEAN CORPUSCULAR HEMOGLOBIN (BEAKER) (test code = 751) 29.0 pg 25.6-32.2 MEAN CORPUSCULAR HEMOGLOBIN CONC (BEAKER) (test code = 752) 31.1 GM/DL 32.2-35.5 L RED CELL DISTRIBUTION WIDTH (BEAKER) (test code = 412) 18.6 % 11.7-14.4 H PLATELET COUNT (BEAKER) (test code = 756) 139 K/CU MM 150-450 L MEAN PLATELET VOLUME (BEAKER) (test code = 754) 10.6 fL 9.4-12 .3 NUCLEATED RED BLOOD CELLS (BEAKER) (test code = 413) 0 /100 WBC 0 -0 COMPREHENSIVE METABOLIC [id number] 13:59:00* Test Item Value Reference Range Interpretation Comments TOTAL PROTEIN (BEAKER) (test code = 770) 7.1 gm/dL 6.0-8.3 ALBUMIN (BEAKER) (test code = 1145) 4.0 g/dL 3.5-5.0 ALKALINE PHOSPHATASE (BEAKER) (test code = 346) 102 U/L 40-150 BILIRUBIN TOTAL (BEAKER) (test code = 377) 0.3 mg/dL 0.2-1.2 SODIUM (BEAKER) (test code = 381) 136 meq/L 136-145 POTASSIUM (BEAKER) (test code = 379) 3.9 meq/L 3.5-5.1 CHLORIDE (BEAKER) (test code = 382) 103 meq/L 98-107 CO2 (BEAKER) (test code = 355) 24 meq/L 22-29 BLOOD UREA NITROGEN (BEAKER) (test code = 354) 19 mg/dL 7-21 CREATININE (BEAKER) (test code = 358) 0.95 mg/dL 0.57-1.25 GLUCOSE RANDOM (BEAKER) (test code = 652) 95 mg/dL 70-105 CALCIUM (BEAKER) (test code = 697) 9.7 mg/dL 8.4-10.2 AST (SGOT) (BEAKER) (test code = 353) 24 U/L 5-34 ALT (SGPT) (BEAKER) (test code = 347) 15 U/L 6-55 EGFR (BEAKER) (test code = 1092) 60 mL/min/1.73 sq m ESTIMATED GFR IS NOT ACCURATE CREATININE CLEARANCE IN PREDICTING GLOMERULAR FILTRATION RATE. ESTIMATED GFR IS NOT APPLICABLE FOR DIALYSIS PATIENTS. Compotype Operator ID - IVANA CBlastomyces [id number] 11:18:00* Test Item Value Reference Range Interpretation Comments Blastomyces Ab,Id (test code = 20190703) Negative Test Not Performed. Due to technical issues with this assay we are unable toperform the test ordered at our [place] site. Your sample hasbeen sent to our [place] [facility] for [place]. We will communicatewhen the problem has been resolved and testing has been resumed at [facility].This is a corrected result. Previous result was TNP on 12/11/2019 at 0801 CDT KO (test code = KO) SEE ALSO #[id number] Performin g Lab *QDID [facility] [address] [place] [phone] Fly Calle MD [facility]LAST[facility] [id number] 11:18:00* Test Item Value Reference Range Interpretation Comments BLASTOMYCES AB,ID ,1(QUEST) (test code = 20190703) Negative Test Not Performed. Due to technical issues with this assay we are unable toperform the test ordered at our [place] site. Your sample hasbeen sent to our [place] laboratory for testing. We will communicatewhen the problem has been resolved and testing has been resumed at [facility].This is a corrected result. Previous result was TNP on 12/11/2019 at 0801 CDT SEE ALSO #[id number] Lab *QDID [employer]. [address] [place] [address], [place] [address] Jorden dozier MDBone Marrow [id number] 18:01:00* Test Item Value Reference Range Interpretation Comments Case Report (test code = 104) [facility] Pathology Re port Case: [id number] Authorizing Provider: Caitlyn White MD Collected: 11/28/2019 12:15 PM Ordering Location: [address] Received: 11/28/2019 12:32 PM SERVICE Pathologist: Radha Devries MD Specimens: A) - Iliac Crest, Right B) - C) - ADDENDUM 2 (test code = 3382) [id number]Tzo6gaOQThpQIdWcUrDmBbUrYfAtyvfSPbEKKkLrCis3osa601cRJm u5odOHHfJsY2lVSqIOAvoLPzZ309g3zfq6jhouNarET1UEHaAEJ5IOzfqzYwipH3VHbosQGcYrB5QHof ocJePBlggpLdkdDdZmm3EXKrQ624MTM6qAssc6ejIO Y5FFTzBLJcCmZyJc7snWYvJ901FYVmTVHCCSFvcZp4XCPdpdWmmwAunBKXe875F583g0zaXNToohPnyB qEayocc1xaC393QVFwiRPfdbYlDfTqGVZltSNnxVS1QQPdTL7zmofjUCotHPzeQUWmtrG7CQKimQMcK9 KlPYXzLU7asmrzLGY9RZwdJEXtASK9NzMxDRIlz7Hf cnp3RpZxdk7wsn50XXP8x4MpmHauXOP4PYC5KyNkTo2hrKUiOZXsAD4iGyUfgYBaQVImra92kVabMQik itQjgE8iSvMbIDOfrIQiQPOcHD2nlSWtTNUwhL2dfgceQANeViLcngtwMWTouIqhmlEsGp0qlTpxCTW2 SOpfT5ydcZ2pCaQ4XUmeY2ixwY2lVFe5BFclyCD5YG EeuY4dGZ9tqyxef3rmSDjqUAwtAOSlykU7uqS4YFOweWErS6YcbK0dMZPdQI4sbwbqd2piEET3UVwyNO PkNVJ6AzPpUGOsk0Hvqow8EvHbs6DcyBJsBCvoN19od684BUFikxVfN0nceHBrzfgwfICrlzevACxixr F4LVQnNZAuUUvkZITmBRDuQvAzqURdEfKnAtAmrTrx gNnnNPawRaVxLSIsAYojQ0mlYmDuTgGjVQYCYMNbU5JzjK2pn5RupN0ouYMaAb8lzVUpWP3oXGUgETFa DCJee5pvUyzygLA4YBbFYUgcw0jar3LkUMZgn3RyiWJvdBmmOEEaDL2nPMInBYYrIAkaU4LgJBDeBUaz HWTclCxspXnaiqQvsEMmo0Siic9fFErzBQPpcFNwWOCWOUxsACbdJFElbHPpOWAgla9= ADDENDUM (test code = 3381) r6svhPUzBPBcoWKiWhPcNJTtSKQye7qcXXHnsEJuIoEsPqQiAfTzQewnhKIhRPNcQxNwu1clq203gQJo v6lwIIHlGaH3rNTxGSBhiOBhV752a3xta2ehfiWlzZC9WEPzKYW5DChggyTvvsA8GCtcxIUrToA9KDyc jcKxLVbescMiboHmOty9NYJnC441GMN6pLzal4lcNF N5OHKePSFnEyTrMq7mpNJgS273LSMtFDLPWSNedJd3NVCggyDxxkPprWAIy489B416b2xdFQPcprYlqX kZvorub3juX766OHBvoACisjLtRjFjQCUajSCskAA4RUBxVP7eevctTBxpTTytFPAqztL2KCApgTYuE7 IwTNAlAZ7ddybuXIC1NDiuYFPzTPS4XjVsBZKvc7Bq rgz0HcEvwq8flw87LHD8w6YadCzlTVB3BNG8FiKmWy3vwOHhSVItSN4zXtMleMCdTMZryy20pUmjHSje ucOjvN2lNvEmGOMehPJzWYYkVX9esTEiPLOufK9qlxezZZKxQrJedkyyQLUhnYknqeMyUk2sgFksLSK3 SRscT5olfD7pRoE9HPebQ0fxtP7eUMo2VTdpiVF8AU SzjA7eRI0mowoeg1ieICxeRIdzVGLtztD6riK1CBUlrZKyP7FseM6tVRPlTY0svuomo8laOHB8EYhiAG WfQKY6WoMnUFUpn0Upohz2MyWxx9PxpEOkQWrkH94pd957IWUelaGsH0fmcHHzvulyaDYlwvzfLHzgxe L0UQLdWMMuAFuuDRJcIFMsNiAzeMIlXzQhFhBofAfh oLotFVzyDjZaUATdZOcjL6tuZmMoEuFuQXWRhRHgnw2loENmSLDng2GqaSYed5PdoSfaETI4eN0kJI4h kIrdUED0mEFmAFAoIG3orh52BNBhbATfIWGwCSVkcwQ3hT85s7j1SUExswWedlQjOXNtJRzpl0MlxwNq a5WhBUD1vSXmyPOwCPGbbR3woVelBEpcFYJ1 DIAGNOSIS (test code = 3220) k4xliUZtNOLzj1qoMONotZOqDmEaVtKzPdNfLevyfBIqIJwiuoMfNIhhp8HvR9RqNoYvDEybvrIdWUEd VewjozhgRGFhDPN0tnXmXTJsUWshVYIoOKmyWm9foAUdiOghGhZdOLTmi2jeeeOJlktiyWr6g7qjAQGz GdE6zVYfXUldU1bxhhTwyRLjPYSkBXy2lU95OZTywU 6bgFIgXYntwqMcKaZ5OOdbXIHvWxS5UDIgxMFtYDCyL6mvWYPgYEifAMFkWCmieTQhKRD3yRnys5R4mF YwaPWgxJnrEhJqIjAfFUWWf7XtIRf9vWmgZ8CvXQLtUgQ8cHMdHMPmXHdvSEHdJTWaerG9qX99QOfjyn F1sTXpl2Hos21qt193aI3hvTUxMRS8EOQvIMTnlTIr AKDjDJX1GOYnfCMvH3t8SvZtjJGxP8H8ObAfhDPiQ5G5YeZoyVZtJ6G5KaNreUXbOHNldRRuMo2daVAf lPNdpt4dym88LLY2h5UpxNmpTHK5GZO6UpBbGh6rrSDtJFAlSUCahWLaXRQyEH6ehHDsKWBeyD7gbiss CQRoIjDqelpxERByiZwhrzYfKt1vmUgnUSH6SLrqJ9 jdoO7kOvV7CZadB4ipsZ1fXCs2KWloeAS3MEVicB6dWI6ikcmmf9lyBaXeNW9gzknqa6kuHeLzPL7ubp w4g6ioZmAfWZ7imldgv1lcMdRqGBqpRWXhpyavRFOsc4KwfwqbBYJli9TqK7CwbTlgA90hrNciI02cMB KfsVqqhI8jeAyfpM2qUsFfGjQnUCtvuLipoDEgjpne HOlbcoVyCKuzgmyzASXqPByrH9pqGqQgTQGeiPfsQByfx3QwATAcWALsNdDoPx8BBXQFZYEZR9vmIMOJ ZZVYTAUhMPNSE6PkVYHHWDIXGZYBJLHRBtxADRNESE3YF7q4FYDvqpHzAlNXGNYACZgdH9TNSWFRKEAf KMPfLNzmQIhkELUVFf3PSPfEQLpfRKNWSOpAIHRQVU SJNK2UKL4PU8aRK6uYKUPUGTYiTYLEQZEOQDTbrTAhRE9OWH4RXC3PUNFHOA9PAW2XCSaYWUCCTMQXOQ ZxvAAcQGWklbMVQMDAECmMPqNNZOKAL00MFdvwJVBhYIUIGJ0BSMSFWeVlCJoXJ14RT5SUWY9FXR9SHR DfsYZkOPKubuRrwFscoG9cWvPpAwRqUGxpuTUtfxll JUmkrsQ6XJIpne81YPC7KzUfj2G6DEP9VSAnDVKnh2hdOMTehDXcEhIxKcWzAuXlSyzcjJFxVHZvGhNi y4qsw855sUSew6yyWLWcYqB9tSWgNWXmxOKcM426CWNxYUgux7xvk1DbSZHasHDkr0J7LHYJjwboaBa8 lKihJ05fa6E8FqpcJ1viAYLiUHUyM0ByRV1tHFGbOw k0PSJ1WDP8VHHwCLGhI6ChHH9iCEZbpTFfTUa9v8fbgVfgZNZxCVD2o5qlTYjiuuTeIF6pqg4kdJj5o7 bqdzOlGCYuAXTwuPQQSVVmJ7PfqWvrZq0oiKa2zTzvTjllELP2Fiw3GG7tcu73vwf4aWnfGJIyqsicFu M4LGbyTEVppiqsODg5NAxyCCMabDG6WTOmtUOtC6Si UGTxWF3xrew3LEA9XZwfBUFrFtO6BBCyyYRdFIPzuBkaOWpze340MOT0IuJmMG2kU0Wrl3Y7dE8kmUPf VJKcqCPtJoIcKHXgwc3imFKpWSatc5NfPJI1bhN7gXSlrPDpZDZwHrO9LBfvGS5uuv03AZOeOPM8iz7s iAHgjMemfmStiZRsWDrdU8OtFVIuj569DHKeU6NcFA Dln9E5ppFlSsEzMCBfmPR2vxK6FOCtGU3luslki5ecUCokTIqnJMRtgyB1dxP1SUIzjWXlJ1VcrD1jVN EdBF0girblx6vxEJB4TTrgQMVsZTN4FqVnNXCgc1Rtrhi7AhUgn5HmrZFuUIhbS02sc441MDDsokBhW6 xglCKvdxirrZSpxztoCCkmooR9PGKfETnzpxhqOFNp RSkdY4lkFoFrSMHahUzhJDlic5FqEUCkHHJtAaNtcZRpJQSxIfl7KMXpdOPfSYRlVcUfN6sshgpnCyBI GNMjm1eeG9xujIJDnMUoB0JqGEpwdtPaEFhwNMwvRNK6MHP4Pw38VoP5IFAjnk74 COMMENT (test code = 3359) c4zklDKiLDXueOExBlHsFQZzDJEpv9dzQOKxjNBhDqCbSdPqEzQdLymyoOChSKEbAyCpq6uex497rJHy i5itRUBaXmY9iVYuCUHvsZUoK417EOXeNGoff1sek3MrIADxzGZcx4C3BZGMqpsebZp2xGwtV90zn2U3 FwteI5itLTMjMPLoM0CaEC4mZQTkOqd1NHK3WPT7YA ZwQBVbS4DkHD1iVDIuhLQhJKn7j5ldrBgjNVElXCE2m9zkLKlrefNrVR9mbs4pxBl8q8cyktRfDDLeNT ZdtEGXKGCeE8HwhFloVf6inXq3hNfxCiemEQB7Iuc0DM1hox45pmo8nLwcAWZqytswTtO0IIqaXSLggv goFZf0XGggVHQdaHhvKXakODTsedndFRqyRJLlzYsb BFvwVTImUwxyFCufERMlIBE4AUpzy642MZZ0JDwao8ntv4yrdPGpTln1VHZjSxInFtbrMIbuv5Nhr8xm FZOtiv6yZNF0tWQylHwfj2O9hCQiABYzdXHxrwRjETNgUyT7WBquEU4njm95HSMqARF3tg5lqMOgdIhc smCeyKOmDMpdB3XhFARee978CONmL1SnEFXma7T8zb LiGuEvVGUoiCY7uyH2NQWgDOs2vWOllcW2iiTluFVaM2ifiM06DeUdnEFgB0YwhJ02MsLkiJCsC8WziZ 53KgDoyBOcZ8WhdO35VpEdjDPhWSDdyHYtKf4egXQbmSHxf2XnwQUjHFhcW39xx614COJimbUsP6fgyP FflhmsySJetovqRZqstyX3CULgCYBmWZwpJWDmMWSp WhIbyCLuFdFxPbMfuVnnzGbyLHwxSjCpFUUpUYcdP9rfDzGoRlYgKEDFWCXmXJLmTJ5aKUUoZSBaBZSw OKS6tgEyhhBkqr88OYJsi05cfDSfog25MZWksADaSOsblQToxwQvZaMjXVFzp3ojEDLmfKUyfETnu94r ERMcZLNnDWInVDCmWBDoBV7qm8N0cD8boH4uBHOcy2 gcH8d1w11zwCZzTtCupIUywNKnTUsSNcEuPDT5RZDlnbOpy2EpoWUzspWgTrvxRB0cxN4ifjRmj5CySU 6jrkTeMwFsodKenRMyjHVhv9PbIPO9BIKruBSlZQDor92vMUCIRQX3VWhqwZVph1X0RTmzeF7dVMytAI GlwSSyxJpryFZmu3m6eST4lPEtjQ9miLfaeM9teJEr xL7futCrw2yyjqXgCoPzKXKoWYAuDL1iLBYxnAWtnk21RDUqTYT2mw2cXGI2kQ6xJN1usJwdTUI1oNGs SMBbKGRlDASsapPwevwnAKEbRXB9zDbnGHMyMCHsyA8etPCcLODuhOKyDYYjkLgzUAIOwrSsLJAyyfD6 cVY4jFgfPYQrxQqemv5eXTVlwu6= CPT Code(s) (test code = 3357) z5nshRWhDCEguHDzBqZbXPLwETGxy2ugOYFbhQFkZhGnEcKjCkLpXkebcWRwBWUhIeFfj7qwz750jEEl g7enTDSjLcQ0xUVqEYNmqMAoF393JZExJHkpr6jhb0XgZVRecRIyz5T5ORXFjgfydXm8aVteW34fb2N1 QtdbF4hiVJByZPAzO7RnGB9iDWJmFne2DYS7AOH6KA BiHWZsY1QgYW8hEWJuvNDqERp3u0aeaFtkCYTcEKQ5g7glABrxxfB0SF6fgf0woDk9j1seqeKeVSVnPJ MquPDVEDSfH9OafEmrHp9iiBg2wMboJmaaVTT9Zqk9LN6eif03jfq2aAyvKDCcycvwHxW8TAsoYKTkze awZEn0WEryCREluMwmGDkfRWIhkxmjLJzjIAYxxApb IWkbDSIfMqseHSizDAXeQRB0KNceu162RLI0SJnzg5gvy7yjuIUySwt8HKIyNqUeZsweFFily1Ozu5yk FKStOiM3ABynPY5dir28FOIsLUF9cv4bhEFhnQhyjaLifHVdZHzrH5KeWHYbc846ZMZsP4KoHTJek5V2 rjUeBmQxHFJinGV5vbK2WHChGGd1sLKsuhM2onPuhB ZrB4khzK90EuQaxBQrA7ZufS84SuHknNZnB7SgpA32OuVpxKKzC6NtwI69NzZrzKKcHJBjkUFxQp2wkT RojTQtp0JuaZYhUJizW18sq552VCZefyLfD1slyUVdyfjyqBHwoqjhRNlhafR7RHGlYERxCCgpSKPfIJ ZzMjJcbGFuZzEwMzNcaGljaFxmMVxkYmNoXGYxXGxv V2vjUaLzUvTuTrB0WRM5IOniZORcJPn6IJd4WmN3SFagBirfDPzrPGZ8NAm9LgRtGxT8WQQ6UadzJBcy MOWxsRIjMTYpeqXngQdoxQ6wQtHzInEcERvoyYUbesgwQUiytkR5WJOtfk0= CLINICAL HISTORY (test code = 3356) z6voaAKpOHUnwPRhTxHiBZUuERNho1ltZXJrzEGeCrMvNoSxGaMdCjflsOExGFXuTzIib2ssg829iXMq v6bvGONlLnK5uCWxBRPdpECjS742VJVfPNldo8ema7QkMTDvoIYus8Z2BJVZpjzwjTd5iUveE86pe1J0 HeqyD3elGNVgUUEwF2BbCS7oJVCoPyw2PGR0QYT5XP NkERJjT8IuKD3hYSWrsHYeYXt6a4ielFudTPXcQWU7b9otGHiwdkCoKG0ngj7yvHp1d3cepsUkRRDjDI WrkDDYAGYbY6DhuTwgCz9eaZs9hRuhLoceJVN3Rnj2CX0jpc85esi2zFxmQRFjvoszKvP8ELpeCMQoam nfOJo1QNmdQLHpkSjqULnjQGLjatemCRdrYBCcqLus DYvkTLQdInsxDTmsROEnLXL5ICdca825HSM1OQrqu9hnr3egiYTbSxn2KKKbHsNwGsrbSHtbk3Vtk9ti WIYblr4rDSU5zYUvtMqiu7T3gEFgYHEtkWQlfoCxJKTgYyR0ZAmsBO2scv21UPEcRPN9dh3qxAWybEcy hgQoqXNuEWrtD1YqVGIwv338AKYsQ7RrGSJyd2D5ki UqUwOhXJTtpSG4ijC2OCAtOBn8hZPbhsW2mjOebDOgV8cvkT99EjKhdTXsT3UyaC32AbSyzVEcZ1TchN 91MxBktTMwT5WjyE44NxApjHJcIYZgjXDdLl9vrBKktWGrr4ReuMMuNAbiA06gu724JPAbmhIgB7fizA BqokfoxXPvreskDSwuqbE7XDgnOagxtNJlnDVxjJOe ZIJhDWKoNVktFDXuIDFgFsLosNMnGbXqJfNgmHcqcQpyNPeiXpItQPBdEVtyA7erRrBxFdBvHTRXB9Kb qMkwcnCpzKImx8SzUF6NHDxbFPQ8 SPECIMEN SOURCE (test code = 3377) v1nstHAsZSQpqLExUlLfMBZeOMWsq0sxREDhwKYrRcMtBwDxAqHpEbxtkRVbPARoPfRpr1hul479xIVp n3yjVTKhLgN8xORcQDZecSBwX039f4fqz6lalpJoiTD9VERqVYC6RRypckKeobB8OCqycERdNrA3FWvs nfXnMEbebcGunlUkTyw9VOXrX349HKT8fNeta8gdQI K4LYRgQYGkQvRtBd9wdJUgU905CGZfYVHCCNNslRz5XADnkuJvrsHdnATKg947Z699d7kiKMQwdgDfuC sYbtykb9btM404NCUbwJAznfCsInBwHXPnbQGvnNN5WWElPM2mxltjFpRlYQ7vfcdvIlFlHU7jdjr6Sl RnBV2cnmvwMeYlUGhkAZVbaqesDAKta2SpumyxAM3g N9Mzb6X8sX4htGGdKXMhmUEiLfPjWULocf6xtBUyQQthm8ZyHPG0bpA3gBDreOQeJIEsDP60Yjphq6Du EjlhMDS0IRPccmRer6Lmm7svOiDakpYvL0bbQ7TxLWWcCREyFYZhIbHbljWag6Tpv8YvkEFyiNn7x6ha QKQpCVOviEntx7hfROP1TXPxU5F6nLSaa6wdTQzoUV MtvCG9nytuXDidNFGzosQ3lwveVQswUUPvgNG9hmmaZSreKGAbRhX4fqkkBKvnXZShGFR5OJovm990PD A7NLlsJcfwEUvyQVQxeqOoqkPslUfuPSNrMJXpJPxiUWCsZSiwBRSeZSNeYeSanBfqkHwxhP3jMiZbEc ZvVTpeZV8eOYYdI1mtsEJvVSTnJNJtE0lqRuVhwA7xdUygMNtgigPwKOXqchItcZGjjd35HDAmuw3= GROSS DESCRIPTION (test code = 3366) z1mobAYbSUTciOZpXwRvUAFtDBKvw3juZJXdtNNcRnIrAxFhQjAbRxgewEDvZICxHnZkz0fil779uKXn i0omRDCvWfN0aPSvHUUjhTNlL247n8qnz3zlxmPewEW7HHWsBUK7UFjmyeJnwtK0VYbpnWXpWkH1VInu njObDIzamoGjscFqDzk5YUUhZ962VNO9mJbjo3djZM N8LXZyVUEsRkBzRz6suJEkH299BSByFQVBWUNaiJs1BGEsuuWxjwVdjZJJs008K874x6bsLXFwqbHjaN oDhhhvw8kfB326XEQycBIhwtKaLaJwPIXzaLHckQA0QONdRX8mzydtGsAlCT2udzbkZyRzAA3trvy1Lv MxHM8ttaliEiMqMSkoHQZlskbcKLPlw5IhzcrdRU6m V4Jnx8D6tL2fnMApSDWybMIbGaUoPCWuwb9weASlAEnqe6ShYPZ1kjC5kSYmcCVdJUBkZS53Pczpf4Qx BakdCOO3JVAnhzMar6Doh8cdXpXvyuIrB4poI7NlGNZhNPMdYMTxBuMztjFzp8Vpb6LdrHFkvRk9z2mx DRSzODYdhAwcg3weKZM9GEAaE0J7oZIsi5bbIEmoYC LwyDC4sykvCZcmJQQfpaE2slmgSWivIFGguQE5gdlcWYpiOMCyKuX6xchrHTclDRZrEND8XPhiw610ZD B4INvlCztzPEeqFJYsnwXjsiAdgPxjEXYiQMPcBCqyHJWmKAupPDOeQUYpEcChyAvveBknaY3sAzLrBs GfVLtyZL6fQYTqU1gnaPBiJQLgVBMyZ2zbFxOblL8l wVebHRrcusMgIPWgVJXnmLVdpQ1bozYhlxJwHKIgsHGcMYYzaaS0fTGeMCIdGAN3yiQezDqzxMFeEMur QDZ6qBPqJSIyJMLfGHPoWK09B0QvpvOkQGsveFKnsSZplDBiWJQgfmMiahDmNfQlJONwM3Zxk3Wey38l tqPhSuQzPuBuiGIhKPQhluGQzHWazY6lbvBXLOWsay Awn0CzQL0kJWPezxTcWFtlJLQpvUCyiSCmr73bANHgRRqbR6o8XMifKbWddoYjeD0feJPdhkLwSNJzeC JqEUVojgRetg8bUBU2NOwpTgAkrTQrGOFcpdGJsQUnkM4kpvFFVYRbtfLtl2WcCE5cLXXle42sPZRqb6 LivTTte0YclB0yWWSeHNS1KGVtCYX3QIRiTTCqeZ4o ZNyjKOQrVLGipHOgOAjoCNSfG7Oaz30kTMToklRrOX97gMDhzUvit4AdqIw5fMXlTDmiIYWaQwLipVMl GQPxutEVgTYqtU1mqaFSEVpjEINqE6JlrxOiTJdtOQGjkd7fdDplVRUnRLHdo38iaFL0eyVrDzB9ZZ6h voZlGJZklqKhI72aCDJqATZrqAJnvxsjfBFcPAFmOG Ktv27kNWIukxZmdASic6GtzB9gLGBtAtIxbLFidkIzVW4uyIhxEPC4Am4koGStMNBxpoUiecOpfCOrnc ZxBRXtEBW4CLUIZZJhz5EdFKUxQZkftBNfA6D7iL4eOpCrPHEgjCecuBDmqG== MICROSCOPIC DESCRIPTION (test code = 3371) x1spgUBzJCNiqOCxWpJrMBNoIGLyu9spPJQubXZkIqHhHkDvOtNhXgbbvAHpIKKrMgByg9ati842iDKz t8axGARqUtS0sRUcXZXylEPlI841EQLjTPpdt4dym7JsDNMoaQOcx1J4VJAKcbbrcRp3jNuwW72eu5M0 JsjhL0mhITXgFZJxA1VnQS6xHGAoNbw5ILG8RTJ4DR YvEGVmT8EsCI4gKVVonLVnQOa9q0taxStqIBPtNPF6l3xvNBlazjB1ET4fwg1jnQq4z8ggpiAtSJFfNV BirHXGWRLhU0KqiSsxGf7fyUk8nXagQiqqNLW5Quf5PS7dca33kgr3aGquJAZwmzgdLsO5QJgbJTVnsf hjWJd7JNeoVTSsdUwsRDgkZMRrauvrAKhsSZUwzOdk ESmyDUQuGwuuVNeyPVWsMER8HNktz442OBB8MJqii1xlw2qfdOCeEuh8ROFrWeEaNuqyVUpxe4Oae7zy GCKgOgQ0JNmyBO5jqc19NOCjUUZ7ze5rnMJhmGaelwNygKHrOGfnW1LyIKOtb028TLPfH1ThXNMku2F8 cjSlOdWuMQKwdKH2klG8ROQrVLn2oBFmwvE5jmYkiS ZcB7kvvJ05UuHrpDNkD1UzfQ28YgCuuVVaZ8WvrN15UoIfaASgH8FzxA59PgGpxNOrGGAuaYHsWa9bsD JwtSDjw7OugDCqLOvvD07si968UPGafvSrY8fqpXXhemaicEWgebyjNPzuniN5DQTwCCHxCKupJFFfOG ZzMjJcbGFuZzEwMzNcaGljaFxmMVxkYmNoXGYxXGxv M7bdReWjHaRyKcKHZ20CCG6MQoXRKfWMZ0LJLlMJNHrluZPpOUZRLEnGKKu0KQEgocNXw5AxvrE9MQ2w ELbcBBWstIInsAXtCDFmotBTn6NltHBfeYBwdD36ADZDRPDbqAL6NCfrTCQkcPZzCX9JNgODUbPANFZH NYQZKeDMUKteP10HKdC9ZB53dXUigwKgZyYsCCqjzc Wrh2DsyUIhIdMhHJSipIFbVXGvXLArYGD4pmHwpHEkRZUaNZMzi905VIlcD1s0GNBeJKWuxtNjHlQrJJ igjN7cbJQtsa0VVWFysZvafD0msCTivqAynJIdYRXjVRJOIZ5asa8JTQqmHF32PVCuQ5BhreYmf1D0yC LtUXgrELJtCHInAL8foK7faUgpfDKkVW4yTZQuGWB9 qbYbvvYaYHLprfEpFYWDRPVawHhvgNLmKV5qOKBaNMP2mtLskrLxGLIbogEeIBTrFUG7tGbzy5yoUFVo HNF1utMpwcEpBMGkhnEpDYQNbN5whT8eiOGkzgYseHBfQNRyWE0gph1cyEBoy9auYZSqKVWtNWrot95k KWFjfOktQGJehrbzGNIgBQbnwH2gMXsiJNZ5iBcny1 amGNEftNieEcSoVbI6FI4abz6lpWkcPWCftINjCSItOTU3vronWG0jrODIirElQZIoZNQyuOEcFSTmyn ZMccn5pUNwnD7xBMPlgecvHFEeiSCugRkbzUUzLRXpMFYht18vwNX6HPLdIAV6jmJ0yL9qSTZojzNnQS AgICAgICAgICAgICAgICAgICAgICAgICAgICAgIFxw XOWqYAgpwD5kd2koc7mvIuLZx5StCQijLS6eSQBkhGPqJNPaUM2wzDBoCGSsz12peSRrEUTdYVZzSMHr FTPsFSGlFSCqNVCaOAWbDHLiWUUyASRmRDPxMAFrIBZwLZZdKVXrRHMhAMwkOCXiGFWlAHtkaadxU8z2 ZEI7BXVXbeGaFX07MYqfFIQzyAOnNUX4OBqnYXEuFF WdlJ5pQSmkBMvpp11mN4Yvgk89SJByJDYxp5Zaf4LzOPUsVJWeUFYcjrPclaFctg0tMSS8HEbmDHKssl Gutz2tZXPxurZ3mNGfXBXwtOJhnKSpf21fHAVtJDAkBXEkGQPzAYDyZYYxCQ6xCZRrONM6JGJgIZ3wuw HxpxDrgQodjWyzzr6ozZLcPWJdKDCvMFYuUSZgXYMj ICAgICAgICAgICAgICAgICAgICAgICAgICAgICAgICAgICAgICAgICAgICAgICAgICAgICAgICAgICAg [file] gIVtjjfeEEdkpaR0VONjgx0= SPECIAL STUDIES (test code = 3376) [file] YWluXGYxXGZzMjJcbGFuZzEwMzNcaGljaFxmMVxkYm AhBBUtTGgnP9bmSiRfV7BuHPGzXkJviSEyI5zsjYBvXAPtURgfKINlEGCaVoUuhMIiXiQxZlMvwHvdqN yiAJjxDzKfYCDpUFnqE7twKwXmP0CaFVEeKdRlHY8ydE2erEdlpL1uwCJznDG5macecKPgbQ8fM9VsAO Qlj0Bxrrusr4VjYEWtjqVock9mCMIlyWMFVWkwp1Pr V4IcGId0a9XqoIvtaU7qIxBzEsTsDvxjLX7yJTJfJ2aaeTNlMJJxBITxY4veVpOisA4avDblXRnnKaPw LtErGzt5UYXlUiIsHdhpZHFpJUywPISiJWBoVpCbtKXjXwBlRbSfhFlayRhbCArmNlBzFPBrPVueL1qb FnUoD9ZnLXDfBuZsswIXJONcM9SxSYTkpnNoggqeCF L4qP3sa9a2YVfxOv6bWUJubeffd6mtbdLzvIHue0JcYGSzllNaj3IoJMIysbKbwYMlXXFrarQkqp0jxx EzWEIcIMZtI2EtifzsyZsftqQ9GNZbPCPuiDXqkHhjOVQvLUj9QCjgdnCgp3FcKoSsytFmyPVihhEwKH 1eGJNjgNJecgYyLKV5HWLsHSKMRpTrWRZvb8LoEB3v LKAckBpyPHCxkW2ca9GzDGNre14eBKCzODZLAYGodSPiBSCnwWCgfKydTLMzyJwtxSZxgYMqGRRjLMVy DX5kQZOqosJmfJJcm5JxdGStgrIpc5RploGxGUCoVDA7SpGPzWSvtSImpBDqcxY6i3ZsJHQywjVbyMmh dHUipRHpzOHvl2Twrb2lDGZdb3arfSshZX3qzYNtID DnHTeayhRoZMQxkyOyapEsw8EfO3Y8jT0dOUyen9ZbVu7aEWJjc3XqzhKeGlIVjMjeNEnnUf1iXTTpyp nfpBRjN0SywZusnUUoDKAmEWZrAYLjQLQEmRvdzYQozUIQMFKutzT3y4P0ONczjDLvbyFuOE66QNFbMP 9afIXkyFAkn0TmFCq9FQMyM3sADQ07ORlaTNQszHIo yGlwrCRzXEZlGJYtnuHhdc7woDuyqRMez67xvFO8kZB7IHSwnO7dY6KiJXnhFy6bNKSroqzkyMPluBqd Zq7wvYpvzR9pNkOyKlRpOqthKS1pFOXlQ3niiPPgJRBzOZApW4dvWkEjoM6diXcvMrbwzxIbEEAthjgn OQLvNRSsGKcrAOQkGBMaBoKqtTbzxA4aPrUoStUfQWseYAB2 Professional component was performed at (test code = 2 779) [facility], Department of Pathology, [address] [place] [address], [facility] [id number] 18:01:00Bone Marrow Pathology Report Case: [id number] Authorizing Provider: Caitlyn White MD Collected: 11/28/2019 12:15 PM Ordering Location: [address] Received: 11/28/2019 12:32 PM SERVICE Pathologist: Radha Devries MD Specimens: A) - Iliac Crest, Right B) - C) - Reticulin stain performed on the marrow biopsy (C1) shows a focal mild to moderate increase in r eticulin fibrosis. CPT: 97330 x 1Addendum electronically signed by Luis Carlos Devries MD on 12/06/2019 at 6:01 PMThe normal results of the cytogenetic stud ies do not alter the previously rendered diagnosis (see attached report). Addend um electronically signed by Radha Devries MD on 12/04/2019 at 10:21 AMBO NE MARROW ASPIRATE, CLOT, AND DECALCIFIED BIOPSY:-VARIABLY CELLULAR (20-80%) MAR ROW WITH TRILINEAGE HEMATOPOIESIS AND 1% BLASTS-PENDING CYTOGENETIC STUDIESPERIP HERAL BLOOD:-ANEMIA AND THROMBOCYTOPENIA Signing Pathologist Direct Phone Line: [phone] signed by Radha Devries MD on 0 at 2:34 PMLess than 5%(1%) blasts are noted on marrow touch imprints; marrow aspirate smears are less than optimal. Flow cytometric studies (F20-567) do not identify an increased nor aberrant myeloblast population. CD34 immunostaining is compatible with the morphologic impression of less than 5% marrow blasts. Cy togenetic studies are pending, and will be reported separately. An addendum rhiannon l follow. 13941; 54697; 49902 x 2; 44209; 43309; 97408; 99625Q/p therapy for AML Bone marrowThe specimen is received in three parts all labeled with the patient 's name, medical record number, accession number. Specimen A consists of several aspirate smears including one unstained slide for iron stain. Specimen B consis ts of blood clot measuring 0.8 x 0.5 x 0.5 cm. The specimen is sectioned and ent irely submitted in B1. Specimen C is received in formalin and consists of pascual-re d bone core measuring pascual-red bone core measuring 0.7 cm in length, submitted en tirely in cassette C1 for decalcification. HS/plBONE MARROW ASPIRATE:QUALITY:As pirate- Inadequate Touch imprint- AdequateMARROW DIFFERENTIAL COUNT: Number of cells counted: 3001% Blasts 2% Promyelocytes 36% Myelocytes/Metamyelocytes 30% B ands/Segmented granulocytes 0% Eosinophils and precursors 0% Basophils and precu rsors 28% Erythroid precursors 2% Lymphocytes 1% Monocytes0% Plasma cellsMyeloid : Erythroid Ratio: 2.5; NormalBlasts: Not IncreasedErythropoiesis: Left shifted and complete maturation Myelopoiesis: Normal and complete maturation Megakaryo cytes: Present Stainable storage iron cannot be assessed based on an iron stai n performed on the aspirate smear due to the lack of adequate marrow spicules. DELILAH NE MARROW BIOPSY:Biopsy- AdequateClot- InadequateVariable Cellular ( 20-80 %). There is stromal injury/chemotherapy effect. Erythropoiesis and myelopoiesis ar e complete. Megakaryocytes are adequate, best highlighted with the CD61 immuno histochemical stain. CD34 immunohistochemical staining shows very few (less than 5%) scattered positive blasts. Bony trabeculae : Compatible with a partially subcortical samplingStainable storage iron judy ot be assessed based on an iron stain performed on the clot section due to the lack of adequate marrow particles. PERIPHERAL BLOOD:Red cells: Normocytic, mild anisocytosisWhite cells: No circulating blasts; occasional reactive-appearing ly mphocytes; mild granulocytic left shift with toxic changesPlatelets: DecreasedTh e interpretation of this case included the use of immunohistochemistry or specia l stains.B1: ironC1: CD34, NA45Gqlmseg Slides Examined: In-house known positive controls were evaluated along with the test tissue. These control slides run a longside of the patients sample show appropriate staining. Internal positive and negative controls when available are evaluated Immunohistochemistry technical t esting was performed at [facility], Pathology Laboratory w here it was developed and its performance characteristics were determined. It brown s not been cleared or approved by the U.S. Food and Drug Administration. The FDA has determined that such clearance or approval is not necessary. The test is us ed for clinical purposes. It should not be regarded as investigational or for re search. This laboratory is certified under the Clinical Laboratory Improvement A mendments of 1988 (CLIA-88) as qualified to perform high complexity clinical lab oratory testing.[facility], Department of Pathology, [address] [place] [address], [place] [address], BPUFRE CULTURE, BLOOD (ISOLATOR)2019-12-06 08:30:00* Test Item Value Reference Range Interpretation Comments CULTURE (BEAKER) (test code = 1095) No fungus isolated Coccidioides [id number] 13:30:00* Test Item Value Reference Range Interpretation Comments Coccidioides Ab,Id (test code = 1975214) NEGATIVE REFERENCE RANGE: NEGATIVE INTERPRETIVE CRITERIA: NEGATIVE: Antibody Not Detected POSITIVE: Antibody Detected The immunodiffusion (ID) procedure correlates bothin sensitivity and clinical utility with the CFtest. The ID test, which detects IgG directed tothe "F" antigen, becomes positive within 4 weeksafter infection and remains positive throughoutclinically active disease. It is most useful inconfirming the specificity of low CF titers, whereline(s) of identity are formed with referenceantisera. Positive ID reactions are diagnostic forcoccidioidomycosis and usually indicate active orrecent disease and remain detectable for up to 1year thereafter. KO (test code = KO) SEE ALSO #[id number] Performin g Lab *[facility] [address] [place], [place] [id number] Fly Calle MD [facility]aHISTOPLASMA AB,[id number] 13:30:00* Test Item Value Reference Range Interpretation Comments Histoplasma Ab,Id (test code = 2505753) NEGATIVE REFERENCE RANGE: NEGATIVE INTERPRETIVE CRITERIA: NEGATIVE: Antibody Not Detected POSITIVE: Antibody Detected Positive immunodiffusion (ID) reactions involveone or more specific precipitin bands. Of thesebands the first to appear in active histoplasmosisis the "M" band, which is seen in kgfiukfsrurru50% of proven cases. This band is also seen insome patients with past infections and in 20% ofthose with recent histoplasmin skin testing. The"H" band is usually seen in active and progressivehistoplasmosis and almost always in the presenceof the "M" band, although it is found less often(approx. 10% of proven cases.) KO (test code = KO) SEE ALSO #[id number] Performin g Lab *[facility] [address] [place], [place] [id number] Fly Calle MD [facility]aAspergillus Antibody,[id number] 13:30:00* Test Item Value Reference Range Interpretation Comments Aspergillus flavus Ab (test code = 5674838) Negative Negative Aspergillus niger Ab (test code = 2135525) Negative Negative ASPERGILLUS FUMIGATUS AB (test code = 2425009) Negative Negativ e Interpretive Criteria: Negative: Antibody not detected Positive: Antibody detected A positive result is represented by 1 or moreprecipitin bands, and may indicate fungus ball,allergic bronchopulmonary aspergillosis (ROZ) orinvasive aspergillosis. Generally, the appearanceof 3-4 bands indicates either fungus ball or ROZ. KO (test code = KO) SEE ALSO #[id number] Performin g Lab 15 [facility], [address] [place] [address] [place] [address] Bird Mueller MD, PhD [facility]aCHROMOSOMES CANCER [id number] 12:20:00* Test Item Value Reference Range Interpretation Comments SCAN RESULT (test code = 8310758) Chromosomes Cancer [id number] 12:20:00Scan ResultCENTER FOR MEDICAL GENETICSCollege [facility] Costa MesaVORICONAZOLE [id number] 12:21:00* Test Item Value Reference Range Interpretation Comments VORICONAZOLE LEVEL (BEAKER) (test code = 2807) 2.6 g/mL 1-6 REFERENCE INTERVAL -Therapeutic Range (trough):1.0-6.0 g/mL Toxic Level:Greater than 6.0 g/mL INTERPRETIVE DATA -Toxic concentrations may cause nausea, vomiting, peripheral edema and elevated serum liver enzymes. [email or web address] Compliance Statement B:This test was developed and its performance characteristics determined by [employer]. The U.S. Food and Drug Administration has not approved or cleared this test; however, FDA clearance or approval is not currently required for clinical use. The results are not intended to be used as the sole means for clinical diagnosis or patient management decisions. Flow Cytometry [id number] 15:02:00* Test Item Value Reference Range Interpretation Comments Flow Cytometry (test code = 2758) See Separate Report Case # (test code = 2759) [id number] [facility]OW CYTOMET[facility] [id number] 15:02:00* Test Item Value Reference Range Interpretation Comments FLOW CYTOMETRY RESULT POINTER (BEAKER) (test code = 2758) See Se lobo Report FLOW CYTOMETRY AP CASE # (BEAKER) (test code = 2759) [id number] CBC W/PLT COUNT & AUTO [id number] 14:47:00* Test Item Value Reference Range Interpretation Comments WHITE BLOOD CELL COUNT (BEAKER) (test code = 775) 7.7 K/ L 3.5- 10.5 RED BLOOD CELL COUNT (BEAKER) (test code = 761) 2.65 M/ L 3.93-5 .22 L HEMOGLOBIN (BEAKER) (test code = 410) 7.8 GM/DL 11.2-15.7 L HEMATOCRIT (BEAKER) (test code = 411) 23.6 % 34.1-44.9 L MEAN CORPUSCULAR VOLUME (BEAKER) (test code = 753) 89.1 fL 79. 4-94.8 MEAN CORPUSCULAR HEMOGLOBIN (BEAKER) (test code = 751) 29.4 pg 25.6-32.2 MEAN CORPUSCULAR HEMOGLOBIN CONC (BEAKER) (test code = 752) 33.1 GM/DL 32.2-35.5 RED CELL DISTRIBUTION WIDTH (BEAKER) (test code = 412) 15.1 % 11.7-14.4 H PLATELET COUNT (BEAKER) (test code = 756) 19 K/CU MM 150-450 L MEAN PLATELET VOLUME (BEAKER) (test code = 754) 12.7 fL 9.4-12 .3 H NUCLEATED RED BLOOD CELLS (BEAKER) (test code = 413) 1 /100 WBC 0 -0 H (CELLAVISION MANUAL DIFF)2019-11-29 14:47:00* Test Item Value Reference Range Interpretation Comments NEUTROPHILS - REL (CELLAVISION)(BEAKER) (test code = 2816) 66 % LYMPHOCYTES - REL (CELLAVISION)(BEAKER) (test code = 2817) 4 % MONOCYTES - REL (CELLAVISION)(BEAKER) (test code = 2818) 18 % BASOPHILS - REL (CELLAVISION)(BEAKER) (test code = 2820) 1 % METAMYELOCYTES - REL (CELLAVISION)(BEAKER) (test code = 2821) 4 % 0-0 H MYELOCYTES - REL (CELLAVISION)(BEAKER) (test code = 2822) 5 % 0-0 H PROMYELOCYTES - REL (CELLAVSION)(BEAKER) (test code = 2825) 1 % 0-0 H ATYPICAL LYMPHOCYTES - REL (CELLAVISION)(BEAKER) (test code = 2829) 1 % 0-0 H NEUTROPHILS - ABS (CELLAVISION)(BEAKER) (test code = 2830) 5.08 K/ul 1.56-6.13 LYMPHOCYTES - ABS (CELLAVISION)(BEAKER) (test code = 2831) 0.31 K/ul 1.18-3.74 L MONOCYTES - ABS (CELLAVISION)(BEAKER) (test code = 2832) 1.39 K/uL 0.24-0.36 H BASOPHILS - ABS (CELLAVISION)(BEAKER) (test code = 2835) 0.08 K/uL 0.01-0.08 METAMYELOCYTES - ABS (CELLAVISION)(BEAKER) (test code = 2836 ) 0.31 K/uL 0.00-0.00 H MYELOCYTES-ABS (CELLAVISION)(BEAKER) (test code = 2837) 0.39 K/uL 0.00-0.00 H PROMYELOCYTES - ABS (CELLAVISION)(BEAKER) (test code = 2838) 0.08 K/uL 0.00-0.00 H ATYPICAL LYMPHOCYTES - ABS (CELLAVISION)(BEAKER) (test code = 2858) 0.08 K/uL 0.00-0.00 H TOTAL COUNTED (BEAKER) (test code = 1351) 100 MANUAL NRBC PER 100 CELLS (BEAKER) (test code = 1353) 1 /100 WBC 0-0 H WBC MORPHOLOGY (BEAKER) (test code = 487) Normal PLT MORPHOLOGY (BEAKER) (test code = 486) Normal POLYCHROMATOPHILLIC RBCS(BEAKER) (test code = 478) 1+ few ANISOCYTOSIS (BEAKER) (test code = 961) 1+ few MICROCYTES (BEAKER) (test code = 965) 1+ few ARTIFACT (CELLAVISION)(BEAKER) (test code = 3432) Present PLATELET CONCENTRATION (CELLAVISION)(BEAKER) (test code = 3438) Dec reased Compotype Operator ID - [id number] ID - Izabela Hanna comments: Slide comments: Flow [id number] 10:23:00* Test Item Value Reference Range Interpretation Comments Case Report (test code = 104) Flow Cytometry Report Case: [id number] Authorizing Provider: Caitlyn White MD Collected: 11/28/2019 12:15 PM Ordering Location: [address] Received: 11/28/2019 01:37 PM SERVICE Pathologist: Radha Devries MD Specimen: Other Flow Interpretation (test code = 3364) l1hvjYJrUZDoaOPiWhLtHMPlHUVwj8zjABSwoHOnFlGtLwCbLaHlNtlkiRPrUFLdPyRcm5ayd014wCKa b0oyROZuChP1fBObFMWhkXEfN305IXOlJRtxd5qwx5ImYMMssWUqv1C5MZXApgeyvDj2oGubH56rh5P6 FgpeL3lcDLTvQSZeZ3AgPS4hVJFzHiv8QHN7MKN7OK ErHSJwC2ArYB6zUSXlrMRqPAt6n8fgbHdmUGQsXZX7d5pyPVqcgvWcMP5txs8ngTb5s3qpdkYaPGWpEJ ZsvKYITGUtG1QrrWdzDl5zdMh5mNwfDnclMHU7Hwz6LJ1czx99uys7jNxrCVUaplvvXrE9UHeiNCEria vdFBa1HBajHFAcnMgjHHlrVXTnxshsSCndLVVizCkj IHzuNMYlVpfzEJgnSZYiVKS7LOsnz444VIU6EDjnr6yxl1yxoAQiXkk4GLJzYhCdQuipCKbau7Wtv8wj EXVbsm4rDVD8dKEwyEcgx3M0wNMxXBNyzMRsbsDtUJAeTxE6VOtqCL1abs05KDIwJAG4ts6ziZYfwXij ceIbnUSgFFqwD1YsXVWyt306XKFaN3ZwOYGkl7Z0in EvVnGvZLEeuFW4siU9ZDQdHUu2hNHvveD7qeNcxSBjL2nvwA60EvVpiTRiY1FffR78IuPrdFSdJ3FduN 58EyFlqFSwT6KyqB72KgRkcZCeBAGvvBLgOz0icIHwoGJip8SqmIPfORdaW39sv036ZXGivsEwD8zrvA XfauvtqBUwklypWRhekzG3KSOzUMOrMZobCDBtRRJi CxDjfTYvHzSvSsUorPzgkKbrFPiyIaBnYKVjOCwoH6bmOoEiMuZlHBRQH64XOI3KLvWHOzaqNleEXiAX AIPXEOBNKss3BYGtsdXiKv3tLR2DRbQSJ4SIXZ7JFVXGPHSSSO1QWS7SZInUXrvQG9EiMV6KEXlNXSqM EoZVMNPYERkGGPOFMYAarsDrV1DCQVFOFA8YRsMrfOBoJUVsic5= Flow Interpretation Comment (test code = 3365) v0ysjOErFJKcmSJjJwElJQTpXDMkg0khDHIxiSVzYvRzEbUxUkVrJoerpAHwTCMkXpLqu1tdv758eZKz a6zeDNHsJiN1pSLpHNEtmQJxG897XWQeKYsee7yey9RsGWCwuFDco4F8GHHFsaucxYx5cEcvY38fv8Z6 QspuZ1mwCUVnBSPxI5NkOC9tSUBuKnu2JJD7FRP5NH OwDZWlC1ZuWY6dWMMlnSQdXHi4o0hrzMrtDBVyLGS4w2hoPAqhyzFbNJ6uak0qeIi8w1uxewMfHIJqFS TfjHQCQUCnD0TzwXyyEk8wmCd6uAexBprjBFM7Mat1WT4fmi20ewz1rBuoOKRypkddSoG9XCecYKBnld mfQQz9WLmlEVPhbWyhWHnbDNRjrcrxKFtsHFHyiOaw IJczAYXoZyvuZEmlPORgPGD7NShxu873EFW0AHuiw2nli3npqJMsWkk8CPFiVnFqCzogCPydq9And9op VTFznk9bHCY4tKOvnZgzo2W4vITxTQYkgOAhhxIvOICaViG6ECszFG4dli67SGUsZKT2mn5crMXibEax htDcwSEyIAbdY7UiPOXkk647RPOlZ1ThNCBwv5M9oz IfLmYaTFTnuXN2uwM2DYInKRl2hRNbgyF4gvGegHQuW0romM94NyYclALxX2ZqmW04CzRuaVYoL4CzwP 57KqNfjUFwH5TquY21ChMdrMAfERDmoZEpRk2ktBAzpCVhu9MmvXQlWBpuS89an724ZQBivjNpP8tsfI NrlqbsbYArvqelQUxijvT0GNPgPRLeNXeoQFVtFUIv NvJbfLToWzThMrQgbXbrwYbcBEqtCyKiXLGoEZznI5yhQfRwHsZkLMJPhJLhnNpwdV4acLBpwQZwdK0k gQylWTG0agTjxtVww4SghOxlRCdmECWeDhR0r1RjsMHtKQyhuikqtXBcsmXiGuBbmePruXUgxTAeAIRk wR8hQU1gSONHSkbiiS8iS40mdOZpp8CxtS3ufTeoDP 9zx1EaWDS5sDTjsSfmmK3rtLChoMWit6VvmuGtdaPdyiW1lT79ukZgcF50AGW1uR5tIRNzaWFiBTFpbA DpgTqnflHeTMJxLT3zTSXxSNIuPE87FrNsWzGjC0UwQK1jYO2zCLHzMp0kMJQvwhGweZF7uI8iLOxlhD cpbRrdGV3wyqSch0noR1gbDWUeSZRvqHbyrmGxEWI8yGZvck3rBSViam7= CPT Code(s) (test code = 3357) j7zchMBuWQHchVIdMzDdFXSwBRZsp9urNSQssAXySyMyZwCrSxJzZcykcFOlVEHfHfGvp7csr195jUPt s0twDCVnDvQ7hMPtITFemJUmF529DJUzMOchu4pzr5KbIFQwyHJvn3V8YLSHvsfmcJz1zUjsD97qh0E9 KlmlZ6awQDFmLQEkV3PnER9pPHVqBvc4KPG4DPI7WR XkKERoA7XiKQ9aAESocLJyYMu3f0qydKzyXQJhTLS6c5tlUJndtbYnDB9bor9rmRl3s9uypzQrLNDuSE MhqSDSWTRbA9XgyZikXg7viQp5iAbtImxtVUX0Lyr4DR2qgg14vqn9tKmbZJIdpoypGtT2KYllDSNtxh veAXc9HUdrIKZtzOyoDSidRWOccezmPSebVPRncEtj CEffAMUfKbvjUOjqSDYiYDE2QSxqc780WPZ1FBzzr8krm3xyhDHlLom9PPVeYnGgLpolIDvwg0Ikv0vu YYBqdl5hJJP2vWQnyTsyw3K6dICwSYKaaHRfncEyLYZeWyP2RCniQF4piv89YOXiPYA4af8toFWukRco kzCsgYMtZSvgA5SyFHBby508HERlC2QsZENut8L2an TgTqNtHBIrfNP5emG2AKRiUZw6vDHltqI6uxAzvVHuP4djaN95HiDbwLLrX3QwlE85MqWmoZVqU2HwpT 42VjGfrEQyY8KuxF27CkWoyGHcLGZlhDNcRk3dlLJopWVsr3KaxIJgGEaeB10xh737TCHcsyYtS9hsuY WxrqhekYMsfxonFMrfryI2LSDjOYRpGIvcRVHmDLLf ZnJyzIWmWaJeIxVbdDkpiTrbDTmkVcDrEALdAYksG4ibLnUuLcNpRuW5FNG8KKwzdACotxwmADovcnOm JDkzrawqQICzLZvpY7buYpGnYELgdJrmGBbgm4XnYJWxVYLlOdQifLCjqD== CLINICAL HISTORY (test code = 3356) c8dwiACjEIGffLBsJeSkCDJnAAAez0hmVWLfvMSgXtSiAfEjCiPpUsojoMDjLOZwSwTfp9nrk240gKRs l7duKEIjFjZ2lZWfWMHmdGRaB070v5kng0zmdjXijOP6GIDeLHO0IPbmayJlvcH0KStkiEFjKaJ1OPbm srPnUJdpgaWhidGaJfn9SVFvG532HOR8uIqib2hgEA P8HAWxAVKiXfRzQp0wjGDaK285ZJStIXVXEMLnyHo7XNPmqnOedkQlqPKSo595Z718j4rjPKCnsiKnyK aUyyqcs9kjD868AHJhjENyfqLuWpMqNNSccSAfnLD9TWEcUR0uyubvDxKrZG4xdtosIuFuSX9enzm4Jn SvHK4gxuupZmNqNJkpTKFbsyakYHKdf7LwlgvzGJ7d W6Bpx9R8mU3mjCTkTTWteXDbOzAyIFPtdw3jgSWdOKepa7JyMMR5bfC4uZKqnFPrMVDcXL28Oxbgz0Io NdmuSUW0LBOhslDpf0Ajt9lnNsPndxVtZ2mlM9NlMKErJYDfFUQoQkPdbpUlr6Bzs2BcrAGuiOt3k5ij FBSbBSTlgQbtg1duXFA6SQEtK3V4iMOuw3goZQymXO TlsFB5qpafKLdsADDzinQ5mmleDWddBSQfiFH8omcmTWhdWMImZkF6vwvlVDlqYOOlZGD8JBxtt305HQ W2OGefYcktWTpoERNuodTnifAqhZswHNLgTHBxBOlwLSScHJjiDCAhKKFdWqYotAtsoBitdW1xTjDrWh ZsVImrTT1nKHRwM9eegHGpDDByRFFuL3nhAuGgfL0u gUheOAreabWzXRNctET5yBDcCDV1NEElswSwnPzhZXotZWUkKE30ECfioZCxotCgjNvyz77rzYDghA== SPECIMEN SOURCE (test code = 3377) u0zvvYJvEYMjdBQlQuVkCWWgHGTet4fhVGBqjFSxVmJvRxTvPuVtIuciyUPyEFSsVlVxa3wyy032xMPy l8mjPPCdHzX3gVAxGNAsjRHdU247j8ets7ragxDjjFS0RTAfUQX7TGdsqwDdgiF9BHcvuAEgIcN2OQdl wjWgOIxcuiUcyaJkUps0ZTGhN283BWB7qMwdz4deAI Q8ASGeMTEsHnDxNj6jkCUiW091GHEzMMSTDOLgiFb7WHIuseTnifSgrWAQx576L363p4klXWMscwRflH eAyohvn6dzB412UCYoxKCdpuKwKfDpRLIviJAglLQ9TFKlKE2meertDiRaIJ0lznklKsJkWW6qhzb2Mm YmNT0hcbmkMoPbTQfiMAOaitnnUSVzz9WiiccuZZ6y F5Kfz0C1nZ7xpSQxLNQzpDTjFdIlGKZvew9vaGKdQBehp2GwYYI2kwN9aZDsdEMxAJUiPE61Jungk2Qe SlwqYOX6RJIirjXkn4Mcm9lmBlQckxKbS1gfY6AwOAAdNEMaBBGwRlAfliGnw2Qeq3OcvQZmwOo2f0gn KNTbAYNwqIolp7dlBCI0ARHfR3W6aCTtz0nqKCqzHD JsvXN5gzzaXJlfRGWevpT7omnqUBgrDBHdxYU1kwvzBHlnCOYmZhX6falrAXtmXPDiKNL4YJdvf397CS U7CDimCqhqHOdtUZFdefOmftUduHkhKAYuVIQmKZlpFDGwKDulULCdHVDoHpKezQcrmYvmcL5qTcCkFe KnRLrhEP8oWXGcZ2bthLIqHUOaOZEaI4nbGaMleN9hwIvoQOyyunUfIUTbhlXahFFgqg34TKKrth9= CELLULAR BIOMARKER ANALYSIS (test code = 3380) n2nasEGxLREjfZLcGkMjBESwEDXpp1caFNVowUYdTmFxVrLaZlAeOmpxmAXfSXKbHfNor1bjs466sMSy x9seKJWfIsH9xEMiBRBpoAUpB557LHKlACjbu0uam2LwYPDcjPOya5V3VRGJozhzmJa2pUgrP35gf1G0 MyqqT7vkCNXpVIXyI5IyCY5tUQNeFbq6GTE7QYO1LQ WiINSvZ1AeVW8aOGByeHKoWOz5i2htlUweEDBmGCL1c6zmIJseigKnSX1iny8joOc2i0pigrQfXJOgWZ NekMYPYGWhY3EekUbvJe5cmVx9pCwiUvgqPFA1Aqz5SR8zlc97waw8wYrpYPYggghsZfP1IQtrRKXuye qiAJy8QVcqRFJxeQtiTQtfXXVygqvxUCioSUMuuOtb LBfgBUSkTwiyWFhoSNGpHYG2RBvui197ZXJ4JUzhf7vrq6rpzHUePdc2WMUcAnSbStorJQlzr4Ors8eq LGXeft8fMVW1mHLulIivg4E8cFSoZWFiwLMhyvIoCMDhRcT6WQipEJ1gnq48KCCgHKB7uy4fbFGhvWwh fjJxnQFaVNnvK4UnWIVnt861LWKcW8OpPJWbk7P6hq MvWsXdSQAjiBA1daE9UAHbBDy3wLCbcmP6zdDpjSFtY8mpwW59PfDfmCWzR9WdvK19LnDobPAhN0CjfM 50LlHmnYYuB8PppW86GtIesIZcBWRcgWJeLv1whEFfbCTeb0YvjMXrCWfcZ50lt887KINbaqLsH5mrjN VyvwyqzFBoyhizBOhbtjV1UKZvzoTfzBjafI4sUtUe WsVwVJnqMG5zJOPoE6nygJRoJYEcIKBbO7lsSnTnvU6dyOzsEKlrcnMtZYDjsIKrhFanv48aPcEzKhto LAACLHYrY3K5JUAiPPMZZgJnMHJIPMjrNNSCRoviW1UsOWNmV7SpJOYQHJQ2TBRVLNR5EXFFIGHnYMZD LYTwYzioV2HzWYVtVRYDPJOiOPREFDP2GUCPSKI7YT SFJJHyLSTVOGZ8SDLTCHPtNBZkUBYZPLEcABUAZOUouJJjnJ== IMMUNOPHENOTYPIC FINDINGS (test code = 3379) [file] VCEyGvCmoTxhaC7qTqIfHvKlCLbhBK7dWGApC0xt lANqUNFlSCEvC5foFtPznE4irRwnUNvehbXcIOCneb1= DISCLAIMER (test code = 3363) f6ixuMTgVASmxZHfEgDxKUYbWGOnj1ztAGOslIKxPnSqQwXbRcRcTxeroZKxGJZmXcVnr8zbb170nERe v0suONRyFtM9dPRuNLUeoBHbD319AMJdGZjxn7vxg1OxWEVlfSPjh2O5AOAWbkaqmWr3oRsmR94wl4E9 SrmbI7skBVNdWWEnF5TwYC1wHXAiEwv5QSC1GBC1XQ KtSOFgZ5RoJO2jMBGhaDDcHXl1o7jtlMvnXFEmJWN2s1bwFShgtgI5QF6jxi6snZh1q8ohwsLnGPTgVI ZghCVIUBNcO1IhtIkbRj9lgIh7vCkjHrydUIH9Sjz1SS2jjp90ots3kWxdFMXoinjzQuO9VCxfEMLqgs fsFVk9QHopHKLktYeaSXvmCKFdzfvoDAinQABmeZxa WDdtJSSyKttvGFfzOFQoHPN3BFhma538WUJ4RJufy6ngb4tsrFWdAyk6QZSgPyKdIwmeHVnpd4Jej2sh FTCzYdX9SBhiZZ8opp10JHDhOIM7sj8pxYLgrSwhdeKraSVlJTxvE8VrIJZno371EUJzD5PaFGRss9Y4 teCnTcEzDBWqfTL7djB3VNBaCJz9vQKjfiQ0zqLrdC MeO5fjwI27JsJooRSdD0VdwD80GyWfqDFtI7McbP69ZiVfiGCkY5EyxM82HzGmuLAgKFIpmHImOb8ihE EajYXle6RbzWHxYKloH72iv793KITzqnWyY0sqlCKlykmmeNCahrphPCxornY4HPOcEJXtBGzoRTMeFK ZzMjJcbGFuZzEwMzNcaGljaFxmMVxkYmNoXGYxXGxv T3kqIqWpEdTsClDVtCThVCJ7ZHB8gbS4SJSdJILxyjQzq4MsSUNuptLzfItjpWAcrAApCs1mlXMnZ6Fg R4ggqdDqqOOmbSO8bJMoPOGxeRSjfVrwWVAsDhreCiC6uG6tOER7FoEFyPjyI2LjQYGrgXRbrNJJVX76 DDFwDVSWcMV6VFwnbpVmsu10NPZzVL3fG8yiTBUkJB PjpeKbeTNju5MjXIBsyIV0kNBcRZ4OXjLBz65wNHIrXFWMiuLiZAHsnXwdqIE6ovQ0tX1yJcPLxQTkKk DXLGngyaVoVSQbuo8nwqVgJPDqCQMnh3ZoxFGgtSDgpuChV9Hnv6LuDFNmpb10CKiveXAqlb54CM1mR6 Zem7GilF5tPQQak7tqhFppIJ8scBKyKBZhEMnzcdFr IOLmphYevmWnk0UxQ3R5qI6rNNywr7VoCt1eGAFxh4DmlfVjMgPNdRnvEQldRw6qTARiebiojBXrD8Hg xAsdfRGgQWZcZWUfPAYqSPYWwBqebFXdjPMTTLMkdeR8i9Z2QLgizXRdtaEiLP70JBKlKU4ujVVllWWq c9AuJGe0HRZvXlASWPQlTRTiybIqvTNmhQUrAOVyoW 4yvOWbWu9ebPGoyPulBKEapALpPJpqqYgzX3kxrtusZFunhNXdqEhxPw2sjBNfUOPmfqEsxChkeX6pIc PgVlXhRRextXYlxsmpVAasscU8DJDhts8= Professional component was performed at (test code = 2 779) [facility], Department of Pathology, [address] [place] [address], [facility] [address], [facility] [id number] 10:23:00Flow Cytometry Report Case: [id number] Authorizing Provider: Caitlyn White MD Collected: 11/28/2019 12:15 PM Ordering Location: [address] Received: 11/28/2019 01:37 PM SERVICE Pathologist: Radha Devries MD Specimen: Other BONE MARROW, FLOW CYTOMETRY:-NO INCREASED OR ABERRANT MYELOBLAST POPULATION IDENTIFIED-SEE COMMENT The myeloblasts in the current sample ( 1% of total cells) lack aberrant expression of CD7, in contrast to the neoplasti c myeloblasts seen in previous flow cytometric evaluations (F20-315, F20-426). See M20-104 for correlation with the morphologic and other features. 79[address]T/p th erapy for high grade myeloid neoplasmBone marrow cytoplasmic (c) MPO, cCD79a, CD 34, CD19, CD7, CD3, cCD3, CD45, CD16, CD13, CD117, CD11b, CD10, CD36, CD64, CD3 3, CD14, HLA-DR, cTdT, SS23Nlajafgs Viability: 99.7% Number of Events Acqui red: [id number] The following populations are identified: Blasts: the dim CD45+ CD34+ CD117+CD13+CD33+HLA-DR+CD7- myeloblasts comprise 1.0% of total cells. Lymphocyte s: Bright CD45+ lymphocytes comprise 3.3% of total cells. Myeloid/monocytic popu lations: As identified by CD45 and light scatter characteristics, granulocytes c omprise 72.3% of cells analyzed, and CD14+ monocytes comprise 17.6% of total rosemarie ls. The remaining events analyzed represent nonviable cells, non-hematolymphoid cells, and debris.These tests were developed and their performance characteristi cs determined by [facility]. They have not been cleared o r approved by the U.S. Food and Drug Administration. The FDA has determined that such clearance or approval is not necessary. It should not be regarded as inves tigational or for research. This laboratory is certified under the Clinical Labo ratory Improvement Amendments of 1988 ("CLIA") as qualified to perform high-comp lexity clinical testing.[facility], Department of Patholog y, [address] [place] [id number], NELWN METABOLIC PANEL 2019-11-29 06:43:00* Test Item Value Reference Range Interpretation Comments SODIUM (BEAKER) (test code = 381) 142 meq/L 136-145 POTASSIUM (BEAKER) (test code = 379) 3.8 meq/L 3.5-5.1 CHLORIDE (BEAKER) (test code = 382) 112 meq/L 98-107 H CO2 (BEAKER) (test code = 355) 22 meq/L 22-29 BLOOD UREA NITROGEN (BEAKER) (test code = 354) 15 mg/dL 7-21 CREATININE (BEAKER) (test code = 358) 1.10 mg/dL 0.57-1.25 GLUCOSE RANDOM (BEAKER) (test code = 652) 86 mg/dL 70-105 CALCIUM (BEAKER) (test code = 697) 8.3 mg/dL 8.4-10.2 L EGFR (BEAKER) (test code = 1092) 51 mL/min/1.73 sq m ESTIMATED GFR IS NOT ACCURATE CREATININE CLEARANCE IN PREDICTING GLOMERULAR FILTRATION RATE. ESTIMATED GFR IS NOT APPLICABLE FOR DIALYSIS PATIENTS. Compotype Operator ID - BSBONE MARROW PROCESS.2019-11-28 12:50:00* Test Item Value Reference Range Interpretation Comments Anatomic Case# (test code = 2470) [id number] Ordering Physician (test code = 2457) [place] Performing Physician (test code = 2458) Lolly Clot Rec'd? (test code = 2459) Yes Biopsy Rec'd? (test code = 2460) Yes Rec'd for Culture? (test code = 2464) No Rec'd for Flow? (test code = 2461) Yes Rec'd for Cytogenetics? (test code = 2462) Yes Rec'd for Molecular Genetics? (test code = 2463) Yes KO (test code = KO) Good collection but aspirate slides not good lavander top clot(Molly[facility] 12:50:00* Test Item Value Reference Range Interpretation Comments ANATOMIC CASE# (BEAKER) (test code = 2470) [id number] ORDERED BY DOCTOR# (BEAKER) (test code = 2457) [place] PERFORMED BY DOCTOR# (BEAKER) (test code = 2458) Lolly CLOT RECEIVED? (BEAKER) (test code = 2459) Yes BIOPSY RECEIVED? (BEAKER) (test code = 2460) Yes CULTURE RECEIVED? (BEAKER) (test code = 2464) No FLOW RECEIVED? (BEAKER) (test code = 2461) Yes CYTOGENICS? (BEAKER) (test code = 2462) Yes MOLECULAR GENETICS? (BEAKER) (test code = 2463) Yes Good collection but aspirate slides not good lavander top clot(Molly)CBC W/PLT COUNT & AUTO [id number] 10:09:00* Test Item Value Reference Range Interpretation Comments WHITE BLOOD CELL COUNT (BEAKER) (test code = 775) 8.3 K/ L 3.5- 10.5 RED BLOOD CELL COUNT (BEAKER) (test code = 761) 2.73 M/ L 3.93-5 .22 L HEMOGLOBIN (BEAKER) (test code = 410) 8.0 GM/DL 11.2-15.7 L HEMATOCRIT (BEAKER) (test code = 411) 24.0 % 34.1-44.9 L MEAN CORPUSCULAR VOLUME (BEAKER) (test code = 753) 87.9 fL 79. 4-94.8 MEAN CORPUSCULAR HEMOGLOBIN (BEAKER) (test code = 751) 29.3 pg 25.6-32.2 MEAN CORPUSCULAR HEMOGLOBIN CONC (BEAKER) (test code = 752) 33.3 GM/DL 32.2-35.5 RED CELL DISTRIBUTION WIDTH (BEAKER) (test code = 412) 15.0 % 11.7-14.4 H PLATELET COUNT (BEAKER) (test code = 756) 14 K/CU MM 150-450 L MEAN PLATELET VOLUME (BEAKER) (test code = 754) Unable to report due to abnormal Platelet population distribution. NUCLEATED RED BLOOD CELLS (BEAKER) (test code = 413) 1 /100 WBC 0 -0 H (CELLAVISION MANUAL DIFF)2019-11-28 10:09:00* Test Item Value Reference Range Interpretation Comments NEUTROPHILS - REL (CELLAVISION)(BEAKER) (test code = 2816) 57 % LYMPHOCYTES - REL (CELLAVISION)(BEAKER) (test code = 2817) 4 % MONOCYTES - REL (CELLAVISION)(BEAKER) (test code = 2818) 23 % METAMYELOCYTES - REL (CELLAVISION)(BEAKER) (test code = 2821) 6 % 0-0 H MYELOCYTES - REL (CELLAVISION)(BEAKER) (test code = 2822) 4 % 0-0 H BANDS - REL (CELLAVISION)(BEAKER) (test code = 2826) 2 % 0 -10 ATYPICAL LYMPHOCYTES - REL (CELLAVISION)(BEAKER) (test code = 2829) 4 % 0-0 H NEUTROPHILS - ABS (CELLAVISION)(BEAKER) (test code = 2830) 4.73 K/ul 1.56-6.13 LYMPHOCYTES - ABS (CELLAVISION)(BEAKER) (test code = 2831) 0.33 K/ul 1.18-3.74 L MONOCYTES - ABS (CELLAVISION)(BEAKER) (test code = 2832) 1.91 K/uL 0.24-0.36 H METAMYELOCYTES - ABS (CELLAVISION)(BEAKER) (test code = 2836 ) 0.50 K/uL 0.00-0.00 H MYELOCYTES-ABS (CELLAVISION)(BEAKER) (test code = 2837) 0.33 K/uL 0.00-0.00 H BANDS - ABS (CELLAVISION)(BEAKER) (test code = 2840) 0.17 K/uL 0 .00-0.80 ATYPICAL LYMPHOCYTES - ABS (CELLAVISION)(BEAKER) (test code = 2858) 0.33 K/uL 0.00-0.00 H TOTAL COUNTED (BEAKER) (test code = 1351) 100 RBC MORPHOLOGY (BEAKER) (test code = 762) Normal SMUDGE CELLS (BEAKER) (test code = 1371) Present GIANT PLATELETS (BEAKER) (test code = 313) Present PLATELET CONCENTRATION (CELLAVISION)(BEAKER) (test code = 3438) Dec reased Compotype Operator ID - [id number] ID - Toshia Perez comments: Slide comments: BASIC METABOLIC [id number] 06:25:00* Test Item Value Reference Range Interpretation Comments SODIUM (BEAKER) (test code = 381) 141 meq/L 136-145 POTASSIUM (BEAKER) (test code = 379) 3.3 meq/L 3.5-5.1 L CHLORIDE (BEAKER) (test code = 382) 109 meq/L 98-107 H CO2 (BEAKER) (test code = 355) 21 meq/L 22-29 L BLOOD UREA NITROGEN (BEAKER) (test code = 354) 18 mg/dL 7-21 CREATININE (BEAKER) (test code = 358) 1.20 mg/dL 0.57-1.25 GLUCOSE RANDOM (BEAKER) (test code = 652) 101 mg/dL 70-105 CALCIUM (BEAKER) (test code = 697) 8.5 mg/dL 8.4-10.2 EGFR (BEAKER) (test code = 1092) 46 mL/min/1.73 sq m ESTIMATED GFR IS NOT ACCURATE CREATININE CLEARANCE IN PREDICTING GLOMERULAR FILTRATION RATE. ESTIMATED GFR IS NOT APPLICABLE FOR DIALYSIS PATIENTS. Compotype Operator ID - BSFungal [id number] 05:00:00* Test Item Value Reference Range Interpretation Comments Fungal Panel1 (test code = 2549) Refer to individual A spergillus, Blastomyces, Coccidioides & Histoplasma Ab results. [facility] W/Doppler(CW/PW/Color)2019-11-27 16:33:39 Ejection FractionSLEH ECHO HEARTLAB MKCKESSON CPACSInterface, External Ris In - 11/27/2019 4:33 PM CDTTransthoracic Echocardiography Report (TTE) Demographics Patient Name TIMOTHY DALY Date of Study 11/27/2019 BIMAL Gender Female Visit Number [id number] Race Unknown 59 Room Number 2010 Number Date of 1960 Referring Physician Renzo Porras Age 59 year(s) Sonog rapher Katia Conner Interpreting Isabel Daniels, Physician MD Bird pardo Type of Study TTE procedure:2DECHO W DOPPLER(CW/PW/COLOR) (Routine) Indications:Shortness of breath.Clinical HistoryHGB 8.1HCT 24.2 %CANCERHeight: 60 inches Weight: 57.61 kg (127 lbs) BSA: 1.54 m^2 BMI: 24.8 kg/m^2HR: 87 bpm BP : 165/84 mmHg Summary Global LV systolic function normal . No evidence of LV hyp ertrophy. Normal diastolic function. LA size is normal . A trace of aortic regur gitation. Estimated peak systolic PA pressure is 30-35 mmHg (normal range) . The estimated RA pressure by IVC dynamics 0-5mmHg . Previous Study In comparison w ith the prior exam on 09/19/19 there are no significant changes. Signature ---- Electronically sign ed by Isabel Daniels MD(Interpreting physician) on 11/27/2019 04:33 PM ------ Findings Left Ventr icle Global LV systolic function normal . LVEF by Aguilar's method of disk assessment is increased (>60%) . The left ventricle is chamber size (by vol index) is normal (female - LVED vol - 29-61ml/m2). No evidence of LV hypertrophy. Normal diastolic function. Left Atrium LA size is normal . Right Ventricle T he right ventricular chamber size and systolic function a re within normal limits. Right Atrium RA size is probably normal base d on available views. Aortic Valve Mild AoV cu sp thickening. A trace of aortic regurgitation. Mitral V alve Mild MV leaflet thickening. Trace mitral r egurgitation. Tricuspid Valve TV structure is normal. A trace of tricuspid regurgitation. Estimated peak s ystolic PA pressure is 30-35 mmHg (normal range) . Pulmo shira Valve Normal PV structure appears normal by available views. Aorta Aortic root size (SInus of Valsalva diam eter) is normal . Pericardium No significant pericardial effusion is visualized. IVC/SVC/PA/PV/Pleural The estimated RA pre ssure by IVC dynamics 0-5mmHg . Chambers/Structures Left Atrium LA Dimension: 3 .75 cm LA Area: 14.6 cm^2 LA Volume: 48.94 ml LA Vol. Index: 3 2 ml/m^2 Left Ventricle LVIDd: 4.52 cm LVEDV: 93.63 ml LVIDs: 2.65 cm LV Septum Diastolic: 0.79 cm LV PW Diastolic: 0.79 cm LV FS: 41.4 % LVEDV Aguilar's:64.23 ml LVESV Aguilar's:22.4 5 ml LVEDVI: 42 ml/m^2 LVEF Aguilar's: 65.1 % LVESVI: 15 ml/m^2 LVOT Diameter: 2.02 cm Right Ventricle RVOT V TI: 18.47 cm Doppler/Quantitative Measurements Mitral Valve MV Peak E-Wave: 0.9 m/s MV Peak A-Wave: 0.77 m/s E/A Ratio: 1.16 Peak Gradient: 3.21 m mHg Deceleration Time: 176 msec MV Josh. Peak: Tissue Doppler E' Septal Velocity: 0.07 m/s E' Lateral Velocity: 0.12 m/ s Aortic Valve Peak Velocity: 1.57 m/s Mean Velocity: 0.99 m/s P eak Gradient: 9.83 mmHg Mean Gradient: 4.64 mmHg AV Area (continuit y): 2.98 cm^2 AV VTI: 28.58 cm AR P1/2t: 333.5 msec Deceleratio n Time: 1149.9 msec AV DVI: 0.93 LVOT Peak Velocity: 1.38 m/s Pea k Gradient: 7.64 mmHg Mean Velocity: 0.8 m/s Mean Gradient: 3.09 mm Hg LVOT Diameter: 2.02 cm LVOT VTI: 26.56 cm LVOT Area: 3.2 cm^2 LVOT SV:85.07 ml LVOT CO: 7.4 l/min LVOT CI: 4.81 l/min/m^2 Tricuspid Valve TR Velocity: 2.67 m/s TR Gradient: 28.52 mmHg [facility](CELLAVISION MANUAL DIFF)2019-11-27 15:02:00* Test Item Value Reference Range Interpretation Comments NEUTROPHILS - REL (CELLAVISION)(BEAKER) (test code = 2816) 81 % LYMPHOCYTES - REL (CELLAVISION)(BEAKER) (test code = 2817) 5 % MONOCYTES - REL (CELLAVISION)(BEAKER) (test code = 2818) 14 % TOTAL COUNTED (BEAKER) (test code = 1351) RBC MORPHOLOGY (BEAKER) (test code = 762) Normal WBC MORPHOLOGY (BEAKER) (test code = 487) Normal PLT MORPHOLOGY (BEAKER) (test code = 486) Normal PLATELET CONCENTRATION (CELLAVISION)(BEAKER) (test code = 3438) Dec reased Compotype Operator ID - [id number] W/PLT COUNT & AUTO [id number] 15:02:00* Test Item Value Reference Range Interpretation Comments WHITE BLOOD CELL COUNT (BEAKER) (test code = 775) 10.5 K/ L 3.5- 10.5 RED BLOOD CELL COUNT (BEAKER) (test code = 761) 2.79 M/ L 3.93-5 .22 L HEMOGLOBIN (BEAKER) (test code = 410) 8.1 GM/DL 11.2-15.7 L HEMATOCRIT (BEAKER) (test code = 411) 24.2 % 34.1-44.9 L MEAN CORPUSCULAR VOLUME (BEAKER) (test code = 753) 86.7 fL 79. 4-94.8 MEAN CORPUSCULAR HEMOGLOBIN (BEAKER) (test code = 751) 29.0 pg 25.6-32.2 MEAN CORPUSCULAR HEMOGLOBIN CONC (BEAKER) (test code = 752) 33.5 GM/DL 32.2-35.5 RED CELL DISTRIBUTION WIDTH (BEAKER) (test code = 412) 14.7 % 11.7-14.4 H PLATELET COUNT (BEAKER) (test code = 756) 13 K/CU MM 150-450 L MEAN PLATELET VOLUME (BEAKER) (test code = 754) 10.6 fL 9.4-12 .3 NUCLEATED RED BLOOD CELLS (BEAKER) (test code = 413) 1 /100 WBC 0 -0 H Stool culture + Shiga [id number] 08:41:00* Test Item Value Reference Range Interpretation Comments Result (test code = 6463-4) No Salmonella, Shigella or Campyloba cter isolated KO (test code = KO) [facility] SHIGA [id number] 08:41:00* Test Item Value Reference Range Interpretation Comments CULTURE (BEAKER) (test code = 1095) No Salmonella, Christiana gella or Campylobacter isolated Reduced fecal floraCOMPREHENSIVE METABOLIC [id number] 07:30:00* Test Item Value Reference Range Interpretation Comments TOTAL PROTEIN (BEAKER) (test code = 770) 6.4 gm/dL 6.0-8.3 ALBUMIN (BEAKER) (test code = 1145) 3.3 g/dL 3.5-5.0 L ALKALINE PHOSPHATASE (BEAKER) (test code = 346) 188 U/L 40-150 H BILIRUBIN TOTAL (BEAKER) (test code = 377) 0.5 mg/dL 0.2-1.2 SODIUM (BEAKER) (test code = 381) 145 meq/L 136-145 POTASSIUM (BEAKER) (test code = 379) 3.1 meq/L 3.5-5.1 L CHLORIDE (BEAKER) (test code = 382) 113 meq/L 98-107 H CO2 (BEAKER) (test code = 355) 23 meq/L 22-29 BLOOD UREA NITROGEN (BEAKER) (test code = 354) 14 mg/dL 7-21 CREATININE (BEAKER) (test code = 358) 1.07 mg/dL 0.57-1.25 GLUCOSE RANDOM (BEAKER) (test code = 652) 85 mg/dL 70-105 CALCIUM (BEAKER) (test code = 697) 8.9 mg/dL 8.4-10.2 AST (SGOT) (DEBBIE) (test code = 353) 42 U/L 5-34 H ALT (SGPT) (DEBBIE) (test code = 347) 86 U/L 6-55 H EGFR (DEBBIE) (test code = 1092) 52 mL/min/1.73 sq m ESTIMATED GFR IS NOT ACCURATE CREATININE CLEARANCE IN PREDICTING GLOMERULAR FILTRATION RATE. ESTIMATED GFR IS NOT APPLICABLE FOR DIALYSIS PATIENTS. Compotype Operator ID - AIXA FCT, CHEST, WITHOUT [id number] 10:58:00 Anesthesia:->NoneFINAL REPORT CT of the Chest dated 11/26/2019 COMPARISON: October 24, 2019 CLINICAL INFORMATION: pulmonary mass on CXR, dyspnea Comment: Axial images of the chest were obtained from thoracic inlet to the upper abdomen without intravenous contrast. This exam was performed according to our departmental dose-optimization program, which includes automated exposure control, adjustment of the mA and/or kV according to patient size and/or use of interactive reconstruction technique. Heart is normal in size. Great vessels are unremarkable. No adenopathy in the mediastinum or perihilar region. Trachea and mainstem bronchi are patent. There is interval development of consolidation in both upper lobes with air bronchograms suggestive of pneumonia. Both lower lobes are clear. There is trace of bilateral pleural effusion. Visualized upper abdomen demonstrates no focal lesion. Impression: 1. Interval development airspace in both upper lobes consistent with pneumonia.2. Trace bilateral pleural effusion. Signed: Tayler Gallego Verified Date/Time: 11/26/2019 10:58:49 Reading Location: [address] Body Reading Room Shiga Toxin [id number] 10:47:00* Test Item Value Reference Range Interpretation Comments Shiga toxin 1 (test code = 00340-4) Not detected Not detected Shiga toxin 2 (test code = 19448-3) Not detected Not detected Lab Interpretation (test code = 75590-0) Normal [facility] [id number] 10:47:00* Test Item Value Reference Range Interpretation Comments Pathogen exam charged (test code = 2381) Done [facility] [id number] 10:47:00* Test Item Value Reference Range Interpretation Comments SHIGA TOXIN 1 (BEAKER) (test code = 2177) Not detected Not detected SHIGA TOXIN 2 (BEAKER) (test code = 2179) Not detected Not detected STOOL PATH [id number] 10:47:00* Test Item Value Reference Range Interpretation Comments PATHOGEN EXAM CHARGED (BEAKER) (test code = 2381) Done CBC W/PLT COUNT & AUTO [id number] 08:48:00* Test Item Value Reference Range Interpretation Comments WHITE BLOOD CELL COUNT (BEAKER) (test code = 775) 8.9 K/ L 3.5- 10.5 RED BLOOD CELL COUNT (BEAKER) (test code = 761) 2.48 M/ L 3.93-5 .22 L HEMOGLOBIN (BEAKER) (test code = 410) 7.4 GM/DL 11.2-15.7 L HEMATOCRIT (BEAKER) (test code = 411) 21.8 % 34.1-44.9 L MEAN CORPUSCULAR VOLUME (BEAKER) (test code = 753) 87.9 fL 79. 4-94.8 MEAN CORPUSCULAR HEMOGLOBIN (BEAKER) (test code = 751) 29.8 pg 25.6-32.2 MEAN CORPUSCULAR HEMOGLOBIN CONC (BEAKER) (test code = 752) 33.9 GM/DL 32.2-35.5 RED CELL DISTRIBUTION WIDTH (BEAKER) (test code = 412) 14.5 % 11.7-14.4 H PLATELET COUNT (BEAKER) (test code = 756) 16 K/CU MM 150-450 L MEAN PLATELET VOLUME (BEAKER) (test code = 754) 11.0 fL 9.4-12 .3 NUCLEATED RED BLOOD CELLS (BEAKER) (test code = 413) 1 /100 WBC 0 -0 H (CELLAVISION MANUAL DIFF)2019-11-26 08:48:00* Test Item Value Reference Range Interpretation Comments NEUTROPHILS - REL (CELLAVISION)(BEAKER) (test code = 2816) 78 % LYMPHOCYTES - REL (CELLAVISION)(BEAKER) (test code = 2817) 4 % MONOCYTES - REL (CELLAVISION)(BEAKER) (test code = 2818) 12 % METAMYELOCYTES - REL (CELLAVISION)(BEAKER) (test code = 2821) 1 % 0-0 H MYELOCYTES - REL (CELLAVISION)(BEAKER) (test code = 2822) 1 % 0-0 H BANDS - REL (CELLAVISION)(BEAKER) (test code = 2826) 3 % 0 -10 NEUTROPHILS - ABS (CELLAVISION)(BEAKER) (test code = 2830) 6.94 K/ul 1.56-6.13 H LYMPHOCYTES - ABS (CELLAVISION)(BEAKER) (test code = 2831) 0.36 K/ul 1.18-3.74 L MONOCYTES - ABS (CELLAVISION)(BEAKER) (test code = 2832) 1.07 K/uL 0.24-0.36 H METAMYELOCYTES - ABS (CELLAVISION)(BEAKER) (test code = 2836 ) 0.09 K/uL 0.00-0.00 H MYELOCYTES-ABS (CELLAVISION)(BEAKER) (test code = 2837) 0.09 K/uL 0.00-0.00 H BANDS - ABS (CELLAVISION)(BEAKER) (test code = 2840) 0.27 K/uL 0 .00-0.80 TOTAL COUNTED (BEAKER) (test code = 1351) 100 MANUAL NRBC PER 100 CELLS (BEAKER) (test code = 1353) 1 /100 WBC 0-0 H PLT MORPHOLOGY (BEAKER) (test code = 486) Normal SMUDGE CELLS (BEAKER) (test code = 1371) Present DOHLE BODIES (BEAKER) (test code = 359) Present TOXIC GRANULATION (BEAKER) (test code = 771) Present MICROCYTES (BEAKER) (test code = 965) 1+ few PLATELET CONCENTRATION (CELLAVISION)(BEAKER) (test code = 3438) Dec reased Compotype Operator ID - [id number] ID - Toshia Perez comments: Slide comments: BASIC METABOLIC [id number] 07:58:00* Test Item Value Reference Range Interpretation Comments SODIUM (BEAKER) (test code = 381) 142 meq/L 136-145 POTASSIUM (BEAKER) (test code = 379) 3.2 meq/L 3.5-5.1 L CHLORIDE (BEAKER) (test code = 382) 115 meq/L 98-107 H CO2 (BEAKER) (test code = 355) 18 meq/L 22-29 L BLOOD UREA NITROGEN (BEAKER) (test code = 354) 20 mg/dL 7-21 CREATININE (BEAKER) (test code = 358) 1.29 mg/dL 0.57-1.25 H GLUCOSE RANDOM (BEAKER) (test code = 652) 76 mg/dL 70-105 CALCIUM (BEAKER) (test code = 697) 8.0 mg/dL 8.4-10.2 L EGFR (BEAKER) (test code = 1092) 42 mL/min/1.73 sq m ESTIMATED GFR IS NOT ACCURATE CREATININE CLEARANCE IN PREDICTING GLOMERULAR FILTRATION RATE. ESTIMATED GFR IS NOT APPLICABLE FOR DIALYSIS PATIENTS. Compotype Operator ID - NTPBLOOD [id number] 22:00:00* Test Item Value Reference Range Interpretation Comments CULTURE (BEAKER) (test code = 1095) No growth in 5 days BLOOD [id number] 22:00:00* Test Item Value Reference Range Interpretation Comments CULTURE (BEAKER) (test code = 1095) No growth in 5 days CBC W/PLT COUNT & AUTO [id number] 10:54:00* Test Item Value Reference Range Interpretation Comments WHITE BLOOD CELL COUNT (BEAKER) (test code = 775) 4.7 K/ L 3.5- 10.5 RED BLOOD CELL COUNT (BEAKER) (test code = 761) 2.24 M/ L 3.93-5 .22 L HEMOGLOBIN (BEAKER) (test code = 410) 6.5 GM/DL 11.2-15.7 L HEMATOCRIT (BEAKER) (test code = 411) 19.3 % 34.1-44.9 L MEAN CORPUSCULAR VOLUME (BEAKER) (test code = 753) 86.2 fL 79. 4-94.8 MEAN CORPUSCULAR HEMOGLOBIN (BEAKER) (test code = 751) 29.0 pg 25.6-32.2 MEAN CORPUSCULAR HEMOGLOBIN CONC (BEAKER) (test code = 752) 33.7 GM/DL 32.2-35.5 RED CELL DISTRIBUTION WIDTH (BEAKER) (test code = 412) 14.2 % 11.7-14.4 PLATELET COUNT (BEAKER) (test code = 756) 23 K/CU MM 150-450 L MEAN PLATELET VOLUME (BEAKER) (test code = 754) 9.7 fL 9.4-12 .3 NUCLEATED RED BLOOD CELLS (BEAKER) (test code = 413) 1 /100 WBC 0 -0 H (CELLAVISION MANUAL DIFF)2019-11-25 10:54:00* Test Item Value Reference Range Interpretation Comments NEUTROPHILS - REL (CELLAVISION)(BEAKER) (test code = 2816) 84 % LYMPHOCYTES - REL (CELLAVISION)(BEAKER) (test code = 2817) 1 % MONOCYTES - REL (CELLAVISION)(BEAKER) (test code = 2818) 3 % METAMYELOCYTES - REL (CELLAVISION)(BEAKER) (test code = 2821) 3 % 0-0 H PROMYELOCYTES - REL (CELLAVSION)(BEAKER) (test code = 2825) 4 % 0-0 H BANDS - REL (CELLAVISION)(BEAKER) (test code = 2826) 4 % 0 -10 BLASTS - REL (CELLAVISION)(BEAKER) (test code = 2827) 1 % 0-0 H NEUTROPHILS - ABS (CELLAVISION)(BEAKER) (test code = 2830) 3.95 K/ul 1.56-6.13 LYMPHOCYTES - ABS (CELLAVISION)(BEAKER) (test code = 2831) 0.05 K/ul 1.18-3.74 L MONOCYTES - ABS (CELLAVISION)(BEAKER) (test code = 2832) 0.14 K/uL 0.24-0.36 L METAMYELOCYTES - ABS (CELLAVISION)(BEAKER) (test code = 2836 ) 0.14 K/uL 0.00-0.00 H PROMYELOCYTES - ABS (CELLAVISION)(BEAKER) (test code = 2838) 0.19 K/uL 0.00-0.00 H BANDS - ABS (CELLAVISION)(BEAKER) (test code = 2840) 0.19 K/uL 0 .00-0.80 BLASTS - ABS (CELLAVISION)(BEAKER) (test code = 2845) 0.05 K/uL 0.00-0.00 H TOTAL COUNTED (BEAKER) (test code = 1351) 100 MANUAL NRBC PER 100 CELLS (BEAKER) (test code = 1353) 1 /100 WBC 0-0 H WBC MORPHOLOGY (BEAKER) (test code = 487) Normal LARGE PLT(BEAKER) (test code = 2156) Present HYPOCHROMIA (BEAKER) (test code = 963) 2+ moderate ANISOCYTOSIS (BEAKER) (test code = 961) 1+ few MICROCYTES (BEAKER) (test code = 965) 2+ moderate POIKILOCYTES (BEAKER) (test code = 966) 2+ moderate ELLIPTOCYTES (BEAKER) (test code = 962) 2+ moderate OVALOCYTES (BEAKER) (test code = 477) 2+ moderate TEAR DROP CELLS (BEAKER) (test code = 481) 1+ few PLATELET CONCENTRATION (CELLAVISION)(BEAKER) (test code = 3438) Dec reased Compotype Operator ID - [id number] ID - Aixa García comments: Slide comments: WBC: SEGMENTED WITH TOXIC GRANULATIONS PRESENTBASIC METABOLIC [id number] 05:56:00* Test Item Value Reference Range Interpretation Comments SODIUM (BEAKER) (test code = 381) 141 meq/L 136-145 POTASSIUM (BEAKER) (test code = 379) 3.3 meq/L 3.5-5.1 L CHLORIDE (BEAKER) (test code = 382) 113 meq/L 98-107 H CO2 (BEAKER) (test code = 355) 21 meq/L 22-29 L BLOOD UREA NITROGEN (BEAKER) (test code = 354) 19 mg/dL 7-21 CREATININE (BEAKER) (test code = 358) 1.74 mg/dL 0.57-1.25 H GLUCOSE RANDOM (BEAKER) (test code = 652) 95 mg/dL 70-105 CALCIUM (BEAKER) (test code = 697) 8.4 mg/dL 8.4-10.2 EGFR (BEAKER) (test code = 1092) 30 mL/min/1.73 sq m ESTIMATED GFR IS NOT ACCURATE CREATININE CLEARANCE IN PREDICTING GLOMERULAR FILTRATION RATE. ESTIMATED GFR IS NOT APPLICABLE FOR DIALYSIS PATIENTS. Compotype Operator ID - LORIFILIPPO LClostridium difficile GDH [id number] 22:18:00* Test Item Value Reference Range Interpretation Comments C. Difficle Toxin (test code = 3708490735) Negative Negative C. Difficile GDH Antigen (test code = 1182623347) Negative Nega tive No indication of Clostridium difficile infection and no colonization. Discontinue enteric isolation and therapy. KO (test code = KO) Testing performed by [employer] R apid Cassette Assay. For GDH, published sensitivity of the assay is 98.7% compared to cytotoxicity testing. For Toxin AB, published sensitivity is 87.8% and specificity 99.4% compared to cytotoxicity testing.Verification of kit performance was done by the [facility] prior to clinical use. Lab Interpretation (test code = 22368-4) [facility] [id number] 22:18:00* Test Item Value Reference Range Interpretation Comments CDT TOXIN (test code = 8779193178) Negative Negative CDT GDH ANTIGEN (test code = 0042730358) Negative Negative No indication of Clostridium difficile infection and no colonization. Discontinue enteric isolation and therapy. Testing performed by [employer] Rapid Cassette Assay. For GDH, published sensitivity of the assay is 98.7% compared to cytotoxicity testing. For Toxin AB, publishe d sensitivity is 87.8% and specificity 99.4% compared to cytotoxicity testing.Ve rification of kit performance was done by the [facility] prior to cl inical use.Blood culture, routine [id number] 14:07:00* Test Item Value Reference Range Interpretation Comments Result (test code = 6463-4) No [facility]OUTINE [id number] 14:07:00 * Test Item Value Reference Range Interpretation Comments CULTURE (BEAKER) (test code = 1095) No growth CBC W/PLT COUNT & AUTO [id number] 10:10:00* Test Item Value Reference Range Interpretation Comments WHITE BLOOD CELL COUNT (BEAKER) (test code = 775) 1.9 K/ L 3.5- 10.5 L RED BLOOD CELL COUNT (BEAKER) (test code = 761) 2.50 M/ L 3.93-5 .22 L HEMOGLOBIN (BEAKER) (test code = 410) 7.2 GM/DL 11.2-15.7 L HEMATOCRIT (BEAKER) (test code = 411) 21.4 % 34.1-44.9 L MEAN CORPUSCULAR VOLUME (BEAKER) (test code = 753) 85.6 fL 79. 4-94.8 MEAN CORPUSCULAR HEMOGLOBIN (BEAKER) (test code = 751) 28.8 pg 25.6-32.2 MEAN CORPUSCULAR HEMOGLOBIN CONC (BEAKER) (test code = 752) 33.6 GM/DL 32.2-35.5 RED CELL DISTRIBUTION WIDTH (BEAKER) (test code = 412) 13.8 % 11.7-14.4 PLATELET COUNT (BEAKER) (test code = 756) 44 K/CU MM 150-450 L Discordant PLT result compared to previous result; clinical correlation required MEAN PLATELET VOLUME (BEAKER) (test code = 754) 10.9 fL 9.4-12 .3 NUCLEATED RED BLOOD CELLS (BEAKER) (test code = 413) 2 /100 WBC 0 -0 H (CELLAVISION MANUAL DIFF)2019-11-24 10:10:00* Test Item Value Reference Range Interpretation Comments NEUTROPHILS - REL (CELLAVISION)(BEAKER) (test code = 2816) 63 % LYMPHOCYTES - REL (CELLAVISION)(BEAKER) (test code = 2817) 1 % MONOCYTES - REL (CELLAVISION)(BEAKER) (test code = 2818) 20 % MYELOCYTES - REL (CELLAVISION)(BEAKER) (test code = 2822) 1 % 0-0 H BANDS - REL (CELLAVISION)(BEAKER) (test code = 2826) 15 % 0 -10 H NEUTROPHILS - ABS (CELLAVISION)(BEAKER) (test code = 2830) 1.20 K/ul 1.56-6.13 L LYMPHOCYTES - ABS (CELLAVISION)(BEAKER) (test code = 2831) 0.02 K/ul 1.18-3.74 L MONOCYTES - ABS (CELLAVISION)(BEAKER) (test code = 2832) 0.38 K/uL 0.24-0.36 H MYELOCYTES-ABS (CELLAVISION)(BEAKER) (test code = 2837) 0.02 K/uL 0.00-0.00 H BANDS - ABS (CELLAVISION)(BEAKER) (test code = 2840) 0.29 K/uL 0 .00-0.80 TOTAL COUNTED (BEAKER) (test code = 1351) 100 MANUAL NRBC PER 100 CELLS (BEAKER) (test code = 1353) 1 /100 WBC 0-0 H WBC MORPHOLOGY (BEAKER) (test code = 487) Normal PLT MORPHOLOGY (BEAKER) (test code = 486) Normal POLYCHROMATOPHILLIC RBCS(BEAKER) (test code = 478) 1+ few ARTIFACT (CELLAVISION)(BEAKER) (test code = 3432) Present PLATELET CONCENTRATION (CELLAVISION)(BEAKER) (test code = 3438) Dec reased Compotype Operator ID - [id number] ID - Rosalina OverholtUser comments: Slide comments: BASIC METABOLIC [id number] 06:51:00* Test Item Value Reference Range Interpretation Comments SODIUM (BEAKER) (test code = 381) 141 meq/L 136-145 POTASSIUM (BEAKER) (test code = 379) 3.2 meq/L 3.5-5.1 L CHLORIDE (BEAKER) (test code = 382) 111 meq/L 98-107 H CO2 (BEAKER) (test code = 355) 18 meq/L 22-29 L BLOOD UREA NITROGEN (BEAKER) (test code = 354) 24 mg/dL 7-21 H CREATININE (BEAKER) (test code = 358) 2.16 mg/dL 0.57-1.25 H GLUCOSE RANDOM (BEAKER) (test code = 652) 97 mg/dL 70-105 CALCIUM (BEAKER) (test code = 697) 8.9 mg/dL 8.4-10.2 EGFR (BEAKER) (test code = 1092) 23 mL/min/1.73 sq m ESTIMATED GFR IS NOT ACCURATE CREATININE CLEARANCE IN PREDICTING GLOMERULAR FILTRATION RATE. ESTIMATED GFR IS NOT APPLICABLE FOR DIALYSIS PATIENTS. Compotype Operator ID - LORIFILIPPO LUrinalysis w/Uhtoclzyoht7718-54-59 20:07:00* Test Item Value Reference Range Interpretation Comments Color, UA (test code = 5778-6) Light Yellow Clarity, UA (test code = 5767-9) Clear Specific [place], UA (test code = 5811-5) 1.011 1.001-1.035 pH, UA (test code = 5803-2) 5.5 5.0-8.0 Protein, UA (test code = 79176-1) 20 mg/dL Negative A Glucose, UA (test code = 365) Negative Negative Ketones, UA (test code = 2514-8) Negative Negative Bilirubin, UA (test code = 51680-0) Negative Negative Blood, UA (test code = 05531-8) Trace Negative A Nitrite, UA (test code = 5802-4) Negative Negative Leukocytes, UA (test code = 5799-2) Negative Negative Urobilinogen, UA (test code = 55415-1) 0.2 mg/dL 0.2-1 RBC, UA (test code = 74289-2) 8 /HPF WBC, UA (test code = 5821-4) 4 /HPF Bacteria, UA (test code = 22752-4) Rare Mucus (test code = 8247-9) Rare Squam Epithel, UA (test code = 63877-7) <1 /HPF Specimen Source (test code = 2795) KO (test code = KO) Compotype Operator ID - [auto]Compotype Operator ID - tech Lab Interpretation (test code = 87692-7) [facility] [id number] 20:07:00* Test Item Value Reference Range Interpretation Comments COLOR (BEAKER) (test code = 470) Light Yellow CLARITY (BEAKER) (test code = 469) Clear SPECIFIC GRAVITY UA (BEAKER) (test code = 468) 1.011 1.001-1 .035 PH UA (BEAKER) (test code = 467) 5.5 5.0-8.0 PROTEIN UA (BEAKER) (test code = 464) 20 mg/dL Negative A GLUCOSE UA (BEAKER) (test code = 365) Negative Negative KETONES UA (BEAKER) (test code = 371) Negative Negative BILIRUBIN UA (BEAKER) (test code = 462) Negative Negative BLOOD UA (BEAKER) (test code = 461) Trace Negative A NITRITE UA (BEAKER) (test code = 465) Negative Negative LEUKOCYTE ESTERASE UA (BEAKER) (test code = 466) Negative Negat neetu UROBILINOGEN UA (BEAKER) (test code = 463) 0.2 mg/dL 0.2-1.0 RBC UA (BEAKER) (test code = 519) 8 /HPF WBC UA (BEAKER) (test code = 520) 4 /HPF BACTERIA (BEAKER) (test code = 517) Rare MUCUS (BEAKER) (test code = 1574) Rare SQUAMOUS EPITHELIAL (BEAKER) (test code = 516) < /HPF SOURCE(BEAKER) (test code = 2795) Compotype Operator ID - [auto]Compotype Operator ID - techCBC W/PLT COUNT & AUTO DIFFERENTIAL 2019-11-23 11:07:00* Test Item Value Reference Range Interpretation Comments WHITE BLOOD CELL COUNT (BEAKER) (test code = 775) 0.7 K/ L 3.5- 10.5 LL RED BLOOD CELL COUNT (BEAKER) (test code = 761) 2.72 M/ L 3.93-5 .22 L HEMOGLOBIN (BEAKER) (test code = 410) 7.8 GM/DL 11.2-15.7 L HEMATOCRIT (BEAKER) (test code = 411) 23.5 % 34.1-44.9 L MEAN CORPUSCULAR VOLUME (BEAKER) (test code = 753) 86.4 fL 79. 4-94.8 MEAN CORPUSCULAR HEMOGLOBIN (BEAKER) (test code = 751) 28.7 pg 25.6-32.2 MEAN CORPUSCULAR HEMOGLOBIN CONC (BEAKER) (test code = 752) 33.2 GM/DL 32.2-35.5 RED CELL DISTRIBUTION WIDTH (BEAKER) (test code = 412) 13.5 % 11.7-14.4 PLATELET COUNT (BEAKER) (test code = 756) 13 K/CU MM 150-450 L Discordant PLT results compared to previous results; clinical correlation required. MEAN PLATELET VOLUME (BEAKER) (test code = 754) 10.5 fL 9.4-12 .3 NUCLEATED RED BLOOD CELLS (BEAKER) (test code = 413) 0 /100 WBC 0 -0 (MANUAL DIFFERENTIAL)2019-11-23 11:07:00* Test Item Value Reference Range Interpretation Comments NEUTROPHILS - REL (DIFF) (BEAKER) (test code = 1359) 77 % LYMPHOCYTES - REL (DIFF) (BEAKER) (test code = 1360) 5 % MONOCYTES - REL (DIFF) (BEAKER) (test code = 1361) 12 % EOSINOPHILS - REL (DIFF) (BEAKER) (test code = 1362) 0 % BASOPHILS - REL (DIFF) (BEAKER) (test code = 1363) 0 % METAMYELOCYTES-REL (DIFF) (BEAKER) (test code = 258) 1 % 0 -0 H MYELOCYTES-REL (DIFF) (BEAKER) (test code = 1594) 3 % 0-0 H BANDS - REL (DIFF) (BEAKER) (test code = 1348) 2 % 0-10 NEUTROPHILS - ABS (DIFF) (BEAKER) (test code = 1365) 0.54 K/ L 1 .80-8.00 L LYMPHOCYTES - ABS (DIFF) (BEAKER) (test code = 1366) 0.04 K/ L 1 .48-4.50 L MONOCYTES - ABS (DIFF) (BEAKER) (test code = 1367) 0.08 K/ L 0.0 0-1.30 EOSINOPHILS - ABS (DIFF) (BEAKER) (test code = 1368) 0.00 K/ L 0 .00-0.50 BASOPHILS - ABS (DIFF) (BEAKER) (test code = 1369) 0.00 K/ L 0.0 0-0.20 METAMYELOCTYES - ABS (DIFF) (BEAKER) (test code = 261) 0.01 K/ L 0.00-0.00 H BANDS-ABS (DIFF) (BEAKER) (test code = 1349) 0.0 K/ L 0.0-0.8 MYELOCYTES-ABS (DIFF) (BEAKER) (test code = 1593) 0.02 K/ L 0.00 -0.00 H TOTAL COUNTED (BEAKER) (test code = 1351) 100 BANDS + SEGMENTED NEUTROPHILS (BEAKER) (test code = 1352) 0.55 WBC MORPHOLOGY (BEAKER) (test code = 487) Normal PLT MORPHOLOGY (BEAKER) (test code = 486) Normal RBC MORPHOLOGY (BEAKER) (test code = 762) Normal BASIC METABOLIC [id number] 06:15:00* Test Item Value Reference Range Interpretation Comments SODIUM (BEAKER) (test code = 381) 140 meq/L 136-145 POTASSIUM (BEAKER) (test code = 379) 3.3 meq/L 3.5-5.1 L CHLORIDE (BEAKER) (test code = 382) 111 meq/L 98-107 H CO2 (BEAKER) (test code = 355) 17 meq/L 22-29 L BLOOD UREA NITROGEN (BEAKER) (test code = 354) 32 mg/dL 7-21 H CREATININE (BEAKER) (test code = 358) 2.09 mg/dL 0.57-1.25 H GLUCOSE RANDOM (BEAKER) (test code = 652) 100 mg/dL 70-105 CALCIUM (BEAKER) (test code = 697) 8.9 mg/dL 8.4-10.2 EGFR (BEAKER) (test code = 1092) 24 mL/min/1.73 sq m ESTIMATED GFR IS NOT ACCURATE CREATININE CLEARANCE IN PREDICTING GLOMERULAR FILTRATION RATE. ESTIMATED GFR IS NOT APPLICABLE FOR DIALYSIS PATIENTS. Compotype Operator ID - PIAYA LCryptococcal [id number] 11:36:00* Test Item Value Reference Range Interpretation Comments Cryptococcal Antigen, Serum (test code = 61221-0) Negative Negative, Interference Lab Interpretation (test code = 87480-0) [facility] [id number] 11:36:00* Test Item Value Reference Range Interpretation Comments CRYPTOCOCCAL ANTIGEN, SERUM (BEAKER) (test code = 1828) Nega tive Negative, Interference MR, EXTREMITY, LOWER, [id number] 10:35:00Please include knee and mid tibia regionFINAL REPORT MRI of the left leg with and without contrast. INDICATION: Left knee pain and necrotic left hoover lesion in febrile, neutropenic pt COMPARISON: No priors TECHNIQUE: Multiplanar multisequence MRI examination of the pelvis was performed with and without intravenous gadolinium. FINDINGS: There is no evidence of fracture, or malalignment. Rljb-eo-adxxmdve degenerative changes noted at the left knee, [...] leg, associated with a shallow ulceration. Signed: Kenzie Villeda Verified Date/Time: 11/22/2019 10:35:10 Reading Location: [place] [id number] Ortho Consult Reading Room lower extremity without & with IV contrast left side 2019-11-22 10:35:00Interface, External Ris In - 11/22/2019 10:37 AM CDTFINAL REPORT MRI of the left leg with and without contrast. INDICATION: Left knee pain and necrotic left hoover lesion in febrile, neutropenic pt COMPARISON: No priors TECHNIQUE: Multiplanar multisequence MRI examination of the pelvis was performed with and without intravenous gadolinium. FINDINGS: There is no evidence of fracture, or malalignment. Lpfh-ml-gqypwjwb degenerative changes noted at the left knee, [...] leg, associated with a shallow ulceration. Signed: Kenzie Villeda Verified Date/Time: 11/22/2019 10:35:10 Reading Location: [facility] [id number] Orth[facility] Consult Reading [facility]O [id number] 10:11:00* Test Item Value Reference Range Interpretation Comments WHITE BLOOD CELL COUNT (BEAKER) (test code = 775) 0.2 K/ L 3.5- 10.5 LL RED BLOOD CELL COUNT (BEAKER) (test code = 761) 2.21 M/ L 3.93-5 .22 L HEMOGLOBIN (BEAKER) (test code = 410) 6.4 GM/DL 11.2-15.7 L HEMATOCRIT (BEAKER) (test code = 411) 19.0 % 34.1-44.9 L MEAN CORPUSCULAR VOLUME (BEAKER) (test code = 753) 86.0 fL 79. 4-94.8 MEAN CORPUSCULAR HEMOGLOBIN (BEAKER) (test code = 751) 29.0 pg 25.6-32.2 MEAN CORPUSCULAR HEMOGLOBIN CONC (BEAKER) (test code = 752) 33.7 GM/DL 32.2-35.5 RED CELL DISTRIBUTION WIDTH (BEAKER) (test code = 412) 13.2 % 11.7-14.4 PLATELET COUNT (BEAKER) (test code = 756) 28 K/CU MM 150-450 L Discordant PLT results compared to previous results; clinical correlation required. MEAN PLATELET VOLUME (BEAKER) (test code = 754) 10.8 fL 9.4-12 .3 NUCLEATED RED BLOOD CELLS (BEAKER) (test code = 413) 0 /100 WBC 0 -0 (MANUAL DIFFERENTIAL)2019-11-22 10:11:00* Test Item Value Reference Range Interpretation Comments NEUTROPHILS - REL (DIFF) (BEAKER) (test code = 1359) 39 % LYMPHOCYTES - REL (DIFF) (BEAKER) (test code = 1360) 14 % MONOCYTES - REL (DIFF) (BEAKER) (test code = 1361) 13 % BANDS - REL (DIFF) (BEAKER) (test code = 1348) 34 % 0-10 H NEUTROPHILS - ABS (DIFF) (BEAKER) (test code = 1365) 0.08 K/ L 1 .80-8.00 L LYMPHOCYTES - ABS (DIFF) (BEAKER) (test code = 1366) 0.03 K/ L 1 .48-4.50 L MONOCYTES - ABS (DIFF) (BEAKER) (test code = 1367) 0.03 K/ L 0.0 0-1.30 BANDS-ABS (DIFF) (BEAKER) (test code = 1349) 0.1 K/ L 0.0-0.8 TOTAL COUNTED (BEAKER) (test code = 1351) 100 BANDS + SEGMENTED NEUTROPHILS (BEAKER) (test code = 1352) 0.15 WBC MORPHOLOGY (BEAKER) (test code = 487) Normal PLT MORPHOLOGY (BEAKER) (test code = 486) Normal ANISOCYTOSIS (BEAKER) (test code = 961) 1+ few MICROCYTES (BEAKER) (test code = 965) 1+ few Urine [id number] 10:02:00* Test Item Value Reference Range Interpretation Comments Result (test code = 6463-4) >100,000 col/[facility] [id number] 10:02:00* Test Item Value Reference Range Interpretation Comments CULTURE (BEAKER) (test code = 1095) >100,000 col/mL skin amandeep BASIC METABOLIC [id number] 06:10:00* Test Item Value Reference Range Interpretation Comments SODIUM (BEAKER) (test code = 381) 142 meq/L 136-145 POTASSIUM (BEAKER) (test code = 379) 3.5 meq/L 3.5-5.1 CHLORIDE (BEAKER) (test code = 382) 111 meq/L 98-107 H CO2 (BEAKER) (test code = 355) 22 meq/L 22-29 BLOOD UREA NITROGEN (BEAKER) (test code = 354) 21 mg/dL 7-21 CREATININE (BEAKER) (test code = 358) 1.15 mg/dL 0.57-1.25 GLUCOSE RANDOM (BEAKER) (test code = 652) 102 mg/dL 70-105 CALCIUM (BEAKER) (test code = 697) 8.9 mg/dL 8.4-10.2 EGFR (BEAKER) (test code = 1092) 48 mL/min/1.73 sq m ESTIMATED GFR IS NOT ACCURATE CREATININE CLEARANCE IN PREDICTING GLOMERULAR FILTRATION RATE. ESTIMATED GFR IS NOT APPLICABLE FOR DIALYSIS PATIENTS. Compotype Operator ID - PIAYA LCBC W/PLT COUNT & AUTO [id number] 11:29:00* Test Item Value Reference Range Interpretation Comments WHITE BLOOD CELL COUNT (BEAKER) (test code = 775) 0.1 K/ L 3.5- 10.5 LL RED BLOOD CELL COUNT (BEAKER) (test code = 761) 2.51 M/ L 3.93-5 .22 L HEMOGLOBIN (BEAKER) (test code = 410) 7.1 GM/DL 11.2-15.7 L HEMATOCRIT (BEAKER) (test code = 411) 21.4 % 34.1-44.9 L MEAN CORPUSCULAR VOLUME (BEAKER) (test code = 753) 85.3 fL 79. 4-94.8 MEAN CORPUSCULAR HEMOGLOBIN (BEAKER) (test code = 751) 28.3 pg 25.6-32.2 MEAN CORPUSCULAR HEMOGLOBIN CONC (BEAKER) (test code = 752) 33.2 GM/DL 32.2-35.5 RED CELL DISTRIBUTION WIDTH (BEAKER) (test code = 412) 13.4 % 11.7-14.4 PLATELET COUNT (BEAKER) (test code = 756) 63 K/CU MM 150-450 L MEAN PLATELET VOLUME (BEAKER) (test code = 754) 10.0 fL 9.4-12 .3 NUCLEATED RED BLOOD CELLS (BEAKER) (test code = 413) 0 /100 WBC 0 -0 (CELLAVISION MANUAL DIFF)2019-11-21 11:29:00* Test Item Value Reference Range Interpretation Comments NEUTROPHILS - REL (CELLAVISION)(BEAKER) (test code = 2816) 39 % LYMPHOCYTES - REL (CELLAVISION)(BEAKER) (test code = 2817) 43 % MONOCYTES - REL (CELLAVISION)(BEAKER) (test code = 2818) 15 % BLASTS - REL (CELLAVISION)(BEAKER) (test code = 2827) 1 % 0-0 H ATYPICAL LYMPHOCYTES - REL (CELLAVISION)(BEAKER) (test code = 2829) 4 % 0-0 H NEUTROPHILS - ABS (CELLAVISION)(BEAKER) (test code = 2830) 0.04 K/ul 1.56-6.13 L LYMPHOCYTES - ABS (CELLAVISION)(BEAKER) (test code = 2831) 0.04 K/ul 1.18-3.74 L MONOCYTES - ABS (CELLAVISION)(BEAKER) (test code = 2832) 0.02 K/uL 0.24-0.36 L BLASTS - ABS (CELLAVISION)(BEAKER) (test code = 2845) 0.00 K/uL 0.00-0.00 ATYPICAL LYMPHOCYTES - ABS (CELLAVISION)(BEAKER) (test code = 8168) 0.00 K/uL 0.00-0.00 TOTAL COUNTED (BEAKER) (test code = 1351) 100 WBC MORPHOLOGY (BEAKER) (test code = 487) Normal LARGE PLT(BEAKER) (test code = 2156) Present HYPOCHROMIA (BEAKER) (test code = 963) 1+ few ANISOCYTOSIS (BEAKER) (test code = 961) 1+ few MICROCYTES (BEAKER) (test code = 965) 1+ few POIKILOCYTES (BEAKER) (test code = 966) 1+ few SPHEROCYTES (BEAKER) (test code = 768) 1+ few ELLIPTOCYTES (BEAKER) (test code = 962) 1+ few TEAR DROP CELLS (BEAKER) (test code = 481) 1+ few ARTIFACT (CELLAVISION)(BEAKER) (test code = 3432) Present PLATELET CONCENTRATION (CELLAVISION)(BEAKER) (test code = 3438) Dec reased Compotype Operator ID - [id number] ID - Aixa Raquel comments: Slide comments: URINALYSIS W/ [id number] 10:18:00* Test Item Value Reference Range Interpretation Comments COLOR (BEAKER) (test code = 470) Yellow CLARITY (BEAKER) (test code = 469) Clear SPECIFIC GRAVITY UA (BEAKER) (test code = 468) 1.027 1.001-1 .035 PH UA (BEAKER) (test code = 467) 7.0 5.0-8.0 PROTEIN UA (BEAKER) (test code = 464) 20 mg/dL Negative A GLUCOSE UA (BEAKER) (test code = 365) Negative Negative KETONES UA (BEAKER) (test code = 371) Negative Negative BILIRUBIN UA (BEAKER) (test code = 462) Negative Negative BLOOD UA (BEAKER) (test code = 461) Negative Negative NITRITE UA (BEAKER) (test code = 465) Negative Negative LEUKOCYTE ESTERASE UA (BEAKER) (test code = 466) Negative Negat neetu UROBILINOGEN UA (BEAKER) (test code = 463) 2.0 mg/dL 0.2-1.0 H RBC UA (BEAKER) (test code = 519) 5 /HPF WBC UA (BEAKER) (test code = 520) 0 /HPF MUCUS (BEAKER) (test code = 1574) Occasional SQUAMOUS EPITHELIAL (BEAKER) (test code = 516) < /HPF SOURCE(BEAKER) (test code = 2795) Compotype Operator ID - [auto]Compotype Operator ID - techRAD, CHEST, 1 VIEW, NON [id number] 08:51:00Reason for exam:->feverShould this be performed at the bedside?->Yes FINAL REPORT RAD, CHEST, 1 VIEW, NON DEPT INDICATION: fev er COMPARISON: CT chest October 24, 2019 FINDINGS: Portable frontal view of the ches t. IMPRESSION: Support Lines: PICC tip overlies the SVC Lungs and pleura: New bilateral masslike opacities within the lungs. Given rapid interval development compared to CT October 24, 2019 these are favored to represent rapid evolution of i nfection. No pneumothorax.Heart and mediastinum: Stable contours.Additional find ings: None. Signed: Ulysses Estrella Verified Date/Time: 11/21/2019 08: 51:10 Reading Location: [facility] Radiology Reading Room Electronically sig sonia by: ULYSSES ESTRELLA MD on 11/21/2019 08:51 AM BASIC METABOLIC [id number] 07:11:00* Test Item Value Reference Range Interpretation Comments SODIUM (BEAKER) (test code = 381) 136 meq/L 136-145 POTASSIUM (BEAKER) (test code = 379) 3.7 meq/L 3.5-5.1 CHLORIDE (BEAKER) (test code = 382) 105 meq/L 98-107 CO2 (BEAKER) (test code = 355) 20 meq/L 22-29 L BLOOD UREA NITROGEN (BEAKER) (test code = 354) 13 mg/dL 7-21 CREATININE (BEAKER) (test code = 358) 0.70 mg/dL 0.57-1.25 GLUCOSE RANDOM (BEAKER) (test code = 652) 110 mg/dL 70-105 H CALCIUM (BEAKER) (test code = 697) 9.2 mg/dL 8.4-10.2 EGFR (BEAKER) (test code = 1092) 85 mL/min/1.73 sq m ESTIMATED GFR IS NOT ACCURATE CREATININE CLEARANCE IN PREDICTING GLOMERULAR FILTRATION RATE. ESTIMATED GFR IS NOT APPLICABLE FOR DIALYSIS PATIENTS. Compotype Operator ID - FLORENTINO BSARS-COV2/RT-PCR ([facility] [place] [facility])2019-11-17 10:06:00* Test Item Value Reference Range Interpretation Comments SARS-COV2/RT-PCR (test code = 8013257) Negative Not Detected, N egative SARS-COV-2 PERFORMING LAB (test code = 0816978) CPL CBC W/PLT COUNT & AUTO [id number] 13:03:00* Test Item Value Reference Range Interpretation Comments WHITE BLOOD CELL COUNT (BEAKER) (test code = 775) 0.1 K/ L 3.5- 10.5 LL RED BLOOD CELL COUNT (BEAKER) (test code = 761) 3.22 M/ L 3.93-5 .22 L HEMOGLOBIN (BEAKER) (test code = 410) 9.3 GM/DL 11.2-15.7 L Patient transfused HEMATOCRIT (BEAKER) (test code = 411) 27.3 % 34.1-44.9 L MEAN CORPUSCULAR VOLUME (BEAKER) (test code = 753) 84.8 fL 79. 4-94.8 MEAN CORPUSCULAR HEMOGLOBIN (BEAKER) (test code = 751) 28.9 pg 25.6-32.2 MEAN CORPUSCULAR HEMOGLOBIN CONC (BEAKER) (test code = 752) 34.1 GM/DL 32.2-35.5 RED CELL DISTRIBUTION WIDTH (BEAKER) (test code = 412) 13.3 % 11.7-14.4 PLATELET COUNT (BEAKER) (test code = 756) 47 K/CU MM 150-450 L Patient transfused MEAN PLATELET VOLUME (BEAKER) (test code = 754) 10.4 fL 9.4-12 .3 NUCLEATED RED BLOOD CELLS (BEAKER) (test code = 413) 0 /100 WBC 0 -0 (CELLAVISION MANUAL DIFF)2019-11-16 13:03:00* Test Item Value Reference Range Interpretation Comments NEUTROPHILS - REL (CELLAVISION)(BEAKER) (test code = 2816) 1 % LYMPHOCYTES - REL (CELLAVISION)(BEAKER) (test code = 2817) 94 % MONOCYTES - REL (CELLAVISION)(BEAKER) (test code = 2818) 2 % ATYPICAL LYMPHOCYTES - REL (CELLAVISION)(BEAKER) (test code = 2829) 3 % 0-0 H NEUTROPHILS - ABS (CELLAVISION)(BEAKER) (test code = 2830) 0.00 K/ul 1.56-6.13 L LYMPHOCYTES - ABS (CELLAVISION)(BEAKER) (test code = 2831) 0.09 K/ul 1.18-3.74 L MONOCYTES - ABS (CELLAVISION)(BEAKER) (test code = 2832) 0.00 K/uL 0.24-0.36 L ATYPICAL LYMPHOCYTES - ABS (CELLAVISION)(BEAKER) (test code = 2858) 0.00 K/uL 0.00-0.00 TOTAL COUNTED (BEAKER) (test code = 1351) 100 WBC MORPHOLOGY (BEAKER) (test code = 487) Normal PLT MORPHOLOGY (BEAKER) (test code = 486) Normal POIKILOCYTES (BEAKER) (test code = 966) 1+ few TITO CELLS (BEAKER) (test code = 474) 1+ few PLATELET CONCENTRATION (CELLAVISION)(BEAKER) (test code = 3438) Dec reased Compotype Operator ID - [id number] ID - Palak Engle comments: Slide comments: WBC: Cell d ifferential was performed on buffy coat smear.BASIC METABOLIC [id number] 09:56:00* Test Item Value Reference Range Interpretation Comments SODIUM (BEAKER) (test code = 381) 139 meq/L 136-145 POTASSIUM (BEAKER) (test code = 379) 3.8 meq/L 3.5-5.1 CHLORIDE (BEAKER) (test code = 382) 108 meq/L 98-107 H CO2 (BEAKER) (test code = 355) 26 meq/L 22-29 BLOOD UREA NITROGEN (BEAKER) (test code = 354) 13 mg/dL 7-21 CREATININE (BEAKER) (test code = 358) 0.62 mg/dL 0.57-1.25 GLUCOSE RANDOM (BEAKER) (test code = 652) 89 mg/dL 70-105 CALCIUM (BEAKER) (test code = 697) 9.3 mg/dL 8.4-10.2 EGFR (BEAKER) (test code = 1092) 98 mL/min/1.73 sq m ESTIMATED GFR IS NOT ACCURATE CREATININE CLEARANCE IN PREDICTING GLOMERULAR FILTRATION RATE. ESTIMATED GFR IS NOT APPLICABLE FOR DIALYSIS PATIENTS. Compotype Operator ID - CONSUELO M(CELLAVISION MANUAL DIFF)2019-11-15 21:27:00* Test Item Value Reference Range Interpretation Comments NEUTROPHILS - REL (CELLAVISION)(BEAKER) (test code = 2816) 3 % LYMPHOCYTES - REL (CELLAVISION)(BEAKER) (test code = 2817) 97 % NEUTROPHILS - ABS (CELLAVISION)(BEAKER) (test code = 2830) 0.00 K/ul 1.56-6.13 L LYMPHOCYTES - ABS (CELLAVISION)(BEAKER) (test code = 2831) 0.00 K/ul 1.18-3.74 L TOTAL COUNTED (BEAKER) (test code = 1351) 100 RBC MORPHOLOGY (BEAKER) (test code = 762) Normal WBC MORPHOLOGY (BEAKER) (test code = 487) Normal PLT MORPHOLOGY (BEAKER) (test code = 486) Normal ARTIFACT (CELLAVISION)(BEAKER) (test code = 3432) Present PLATELET CONCENTRATION (CELLAVISION)(BEAKER) (test code = 3438) Dec reased Compotype Operator ID - [id number] ID - Marielena Ortiz comments: Slide comments: BASIC METABOLIC [id number] 20:47:00* Test Item Value Reference Range Interpretation Comments SODIUM (BEAKER) (test code = 381) 137 meq/L 136-145 POTASSIUM (BEAKER) (test code = 379) 3.8 meq/L 3.5-5.1 Specimen slightly hemolyzed CHLORIDE (BEAKER) (test code = 382) 105 meq/L 98-107 CO2 (BEAKER) (test code = 355) 24 meq/L 22-29 BLOOD UREA NITROGEN (BEAKER) (test code = 354) 18 mg/dL 7-21 CREATININE (BEAKER) (test code = 358) 0.67 mg/dL 0.57-1.25 Specimen slightly hemolyzed GLUCOSE RANDOM (BEAKER) (test code = 652) 98 mg/dL 70-105 CALCIUM (BEAKER) (test code = 697) 9.1 mg/dL 8.4-10.2 EGFR (BEAKER) (test code = 1092) 90 mL/min/1.73 sq m ESTIMATED GFR IS NOT ACCURATE CREATININE CLEARANCE IN PREDICTING GLOMERULAR FILTRATION RATE. ESTIMATED GFR IS NOT APPLICABLE FOR DIALYSIS PATIENTS. Compotype Operator ID - DBCBC W/PLT COUNT & AUTO [id number] 20:41:00* Test Item Value Reference Range Interpretation Comments WHITE BLOOD CELL COUNT (BEAKER) (test code = 775) 0.0 K/ L 3.5- 10.5 LL RED BLOOD CELL COUNT (BEAKER) (test code = 761) 2.15 M/ L 3.93-5 .22 L HEMOGLOBIN (BEAKER) (test code = 410) 6.2 GM/DL 11.2-15.7 L HEMATOCRIT (BEAKER) (test code = 411) 18.2 % 34.1-44.9 L MEAN CORPUSCULAR VOLUME (BEAKER) (test code = 753) 84.7 fL 79. 4-94.8 MEAN CORPUSCULAR HEMOGLOBIN (BEAKER) (test code = 751) 28.8 pg 25.6-32.2 MEAN CORPUSCULAR HEMOGLOBIN CONC (BEAKER) (test code = 752) 34.1 GM/DL 32.2-35.5 RED CELL DISTRIBUTION WIDTH (BEAKER) (test code = 412) 13.8 % 11.7-14.4 PLATELET COUNT (BEAKER) (test code = 756) 4 K/CU MM 150-450 LL MEAN PLATELET VOLUME (BEAKER) (test code = 754) 8.2 fL 9.4-12 .3 L NUCLEATED RED BLOOD CELLS (BEAKER) (test code = 413) 0 /100 WBC 0 -0 Troponin [id number] 16:46:00* Test Item Value Reference Range Interpretation Comments Troponin I (test code = 46698-1) 0.05 ng/mL 0-0.03 H KO (test code = KO) Troponin I (TnI) levels must be interpreted in the context of the presenting symptoms and the clinical findings. Elevated TnI levels indicate myocardial damage, but are not specific for ischemic heart disease. Elevated TnI levels are seen in patients with other cardiac conditions (including myocarditis and congestive heart failure), and slight TnI elevations occur in patients with other conditions, including sepsis, renal failure, acidosis, acute neurological disease, and persistent tachyarrhythmia.Compotype Operator ID - CONSUELO M Lab Interpretation (test code = 76032-9) [id number] 16:46:00* Test Item Value Reference Range Interpretation Comments TROPONIN I (BEAKER) (test code = 397) 0.05 ng/mL 0.00-0.03 H Troponin I (TnI) levels must be interpreted in the context of the presenting sym ptoms and the clinical findings. Elevated TnI levels indicate myocardial damage, but are not specific for ischemic heart disease. Elevated TnI levels are seen i n patients with other cardiac conditions (including myocarditis and congestive h eart failure), and slight TnI elevations occur in patients with other conditions , including sepsis, renal failure, acidosis, acute neurological disease, and per sistent tachyarrhythmia.Compotype Operator ID - CONSUELO M(CELLAVISION MANUAL DIFF)2019-11-10 15:08:00* Test Item Value Reference Range Interpretation Comments LYMPHOCYTES - REL (CELLAVISION)(BEAKER) (test code = 2817) 97 % MONOCYTES - REL (CELLAVISION)(BEAKER) (test code = 2818) 1 % ATYPICAL LYMPHOCYTES - REL (CELLAVISION)(BEAKER) (test code = 2829) 2 % 0-0 H LYMPHOCYTES - ABS (CELLAVISION)(BEAKER) (test code = 2831) 0.10 K/ul 1.18-3.74 L MONOCYTES - ABS (CELLAVISION)(BEAKER) (test code = 2832) 0.00 K/uL 0.24-0.36 L ATYPICAL LYMPHOCYTES - ABS (CELLAVISION)(BEAKER) (test code = 2858) 0.00 K/uL 0.00-0.00 TOTAL COUNTED (BEAKER) (test code = 1351) 100 WBC MORPHOLOGY (BEAKER) (test code = 487) Normal GIANT PLATELETS (BEAKER) (test code = 313) Present ANISOCYTOSIS (BEAKER) (test code = 961) 1+ few MACROCYTES (BEAKER) (test code = 964) 1+ few ARTIFACT (CELLAVISION)(BEAKER) (test code = 3432) Present PLATELET CONCENTRATION (CELLAVISION)(BEAKER) (test code = 3438) Dec reased Compotype Operator ID - [id number] ID - florentino Espinoza comments: Slide comments: CBC W/PLT COUNT & AUTO [id number] 14:55:00* Test Item Value Reference Range Interpretation Comments WHITE BLOOD CELL COUNT (BEAKER) (test code = 775) 0.1 K/ L 3.5- 10.5 LL RED BLOOD CELL COUNT (BEAKER) (test code = 761) 3.00 M/ L 3.93-5 .22 L HEMOGLOBIN (BEAKER) (test code = 410) 8.8 GM/DL 11.2-15.7 L HEMATOCRIT (BEAKER) (test code = 411) 26.1 % 34.1-44.9 L MEAN CORPUSCULAR VOLUME (BEAKER) (test code = 753) 87.0 fL 79. 4-94.8 MEAN CORPUSCULAR HEMOGLOBIN (BEAKER) (test code = 751) 29.3 pg 25.6-32.2 MEAN CORPUSCULAR HEMOGLOBIN CONC (BEAKER) (test code = 752) 33.7 GM/DL 32.2-35.5 RED CELL DISTRIBUTION WIDTH (BEAKER) (test code = 412) 15.2 % 11.7-14.4 H PLATELET COUNT (BEAKER) (test code = 756) 8 K/CU MM 150-450 LL MEAN PLATELET VOLUME (BEAKER) (test code = 754) 9.9 fL 9.4-12 .3 NUCLEATED RED BLOOD CELLS (BEAKER) (test code = 413) 0 /100 WBC 0 -0 TROPONIN [id number] 14:45:00* Test Item Value Reference Range Interpretation Comments TROPONIN I (BEAKER) (test code = 397) 0.05 ng/mL 0.00-0.03 H Troponin I (TnI) levels must be interpreted in the context of the presenting sym ptoms and the clinical findings. Elevated TnI levels indicate myocardial damage, but are not specific for ischemic heart disease. Elevated TnI levels are seen i n patients with other cardiac conditions (including myocarditis and congestive h eart failure), and slight TnI elevations occur in patients with other conditions , including sepsis, renal failure, acidosis, acute neurological disease, and per sistent tachyarrhythmia.Compotype Operator ID - DBB-type Natriuretic Factor (BNP) 2019-11-10 14:44:00* Test Item Value Reference Range Interpretation Comments BNP (test code = 09790-5) 30 pg/mL 0-100 KO (test code = KO) Compotype Operator ID - DB Lab Interpretation (test code = 95711-4) [facility] (BNP)2019-11-10 14:44:00 * Test Item Value Reference Range Interpretation Comments B-TYPE NATRIURETIC PEPTIDE (BEAKER) (test code = 700) 30 pg/mL 0-100 Compotype Operator ID - [id number] 14:39:00* Test Item Value Reference Range Interpretation Comments PHOSPHORUS (BEAKER) (test code = 604) 4.0 mg/dL 2.3-4.7 Compotype Operator ID - [id number] 14:39:00* Test Item Value Reference Range Interpretation Comments MAGNESIUM (BEAKER) (test code = 627) 2.2 mg/dL 1.6-2.6 Compotype Operator ID - DBCOMPREHENSIVE METABOLIC [id number] 14:39:00* Test Item Value Reference Range Interpretation Comments TOTAL PROTEIN (BEAKER) (test code = 770) 6.6 gm/dL 6.0-8.3 ALBUMIN (BEAKER) (test code = 1145) 3.9 g/dL 3.5-5.0 ALKALINE PHOSPHATASE (BEAKER) (test code = 346) 117 U/L 40-150 BILIRUBIN TOTAL (BEAKER) (test code = 377) 0.8 mg/dL 0.2-1.2 SODIUM (BEAKER) (test code = 381) 136 meq/L 136-145 POTASSIUM (BEAKER) (test code = 379) 4.0 meq/L 3.5-5.1 CHLORIDE (BEAKER) (test code = 382) 103 meq/L 98-107 CO2 (BEAKER) (test code = 355) 25 meq/L 22-29 BLOOD UREA NITROGEN (BEAKER) (test code = 354) 21 mg/dL 7-21 CREATININE (BEAKER) (test code = 358) 0.69 mg/dL 0.57-1.25 GLUCOSE RANDOM (BEAKER) (test code = 652) 104 mg/dL 70-105 CALCIUM (BEAKER) (test code = 697) 9.5 mg/dL 8.4-10.2 AST (SGOT) (BEAKER) (test code = 353) 16 U/L 5-34 ALT (SGPT) (BEAKER) (test code = 347) 36 U/L 6-55 EGFR (BEEBONY) (test code = 1092) 87 mL/min/1.73 sq m ESTIMATED GFR IS NOT ACCURATE CREATININE CLEARANCE IN PREDICTING GLOMERULAR FILTRATION RATE. ESTIMATED GFR IS NOT APPLICABLE FOR DIALYSIS PATIENTS. Compotype Operator ID - DBBONTova MARROW [id number] 12:57:00Bone Marrow Pathology Report Case: [id number] Authorizing Provider: Abdulkadir Muller MD Collected: 10/23/2019 03:30 PM Ordering Location: [address] Received: 10/23/2019 04:20 PM SERVICE Pathologist: Jeremy Donahue MD Specimens: A) - Iliac Crest, Right B) - Bone Marrow, Clot C) - Bone Marrow, Core Karyotype studies were attempted however no metaphase cells were available for analysis.See attached scanned report.Addendum electronically signed by Jeremy Donahue MD on 11/08/2019 at 12:57 PMBONE MARROW ASPIRATE, CLOT, AND DECALCIFIED BIOPSY:HIGH GRADE MYELOID NEOPLASM WITH INCREASED BLASTS, APPROXIMATELY 20% ESTIMATED ON CORE BIOPSY.CYTOGENETIC STUDIES PENDING, ADDENDUM REPORT TO FOLLOW.SEE DIAGNOSTIC COMMENT.PERIPHERAL BLOOD:MARKED PANCYTOPENIA.RARE CIRCULATING BLASTS. 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 The patient has received induction chemotherapy within our own institu tion and the marrow core demonstrates features of therapy effect. The current delilah ne marrow aspirate and touch imprints are suboptimal for evaluation, however the core biopsy demonstrates an increased blast population which approaches approxi mately 20% as estimated on the core biopsy. The findings support the impression of persistently increased blasts above the threshold of what would be expected i n the regenerative phase after induction therapy. Cytogenetic studies are pendin g, with results to follow in an addendum report.[id number]; 16586; 00943 x 2; 61740; 39162, 14673, 60339m0, 44633Pwhxxbn neoplasm.Bone marrowThe specimen is received in three parts all labeled with the patient's name, medical record number, and accession number. Specimen A consists of one aspirate smear. Specimen B consist s of a blood clot measuring 0.7 x 0.7 x 0.7 cm. The specimen is sectioned and en tirely submitted in cassette B1. Specimen C is received in formalin and consist s of two pascual-red bone core measuring, one measuring 0.5 cm and the other 0.4 cm in length. Both are 0.2 cm in diameter. The specimen is submitted entirely in.ca ssette C1 for decalcification. DIAMANTE/Lawson MARROW ASPIRATE:QUALITY:Aspirate- [place] dequate, hemodilute and without particles.Touch imprint- Suboptimal, minimal mar row present.MARROW DIFFERENTIAL COUNT: A manual cell differential count is precl uded due to the extremely low cellularity of the touch imprints and aspirate sme ars. Rare marrow elements present are comprised of erythroid precursors with tash aloblastoid changes, unremarkable plasma cells, and left shifted granulocytes. M egakaryocytes are not readily identifiable. Cytochemical stain for iron performe d on the aspirate is non-contributory due to lack of material. Ring sideroblasts are not identified. BONE MARROW BIOPSY: Biopsy- AdequateClot- Suboptimal.The marrow core demonstrates a variable cellularity of approximately 30 to 50%. Ther apy effect is present, however some areas of maturing trilineage hematopoiesis a re also identified. Megakaryocytes are present and are unremarkable. Immunohisto chemical studies performed on the core biopsy (block C1) demonstrates increased, persistent leukemic blasts by CD117 immunostain, accounting for approximately 2 0% of the cellular marrow. This population is partially positive for CD34. E cad herin is positive in scattered erythroid precursors.Stainable iron is not identi fied on the clot section by the Perls iron special stain, however minimal marrow is present for evaluation. PERIPHERAL BLOOD:Red cells: Mild anisopoikilocytosis White cells: Marked leukopenia. Rare circulating blasts.Platelets: Unremarkable. This bone marrow aspirate and core biopsy procedure was performed by Dr. Jong Ambrocio, clinical pathologist.The interpretation of this case included the use of immunohistochemistry or special stains.BLOCK B1- PERLS IRONBLOCK C1- CD34, C D117, E-CADHERINControl Slides Examined: In-house known positive controls were evaluated along with the test tissue. These control slides run alongside of the patients sample show appropriate staining. Internal positive and negative contr ols when available are evaluated Immunohistochemistry technical testing was perf ormed at [facility] Pathology Laboratory where it was dev eloped and its performance characteristics were determined. It has not been bushra red or approved by the [place] Food and Drug Administration. The FDA has determined that such clearance or approval is not necessary. The test is used for clinical purposes. It should not be regarded as investigational or for research. This la boratory is certified under the Clinical Laboratory Improvement Amendments of 19 88 (CLIA-88) as qualified to perform high complexity clinical laboratory testing .[facility], Department of Pathology, [address] [place] [id number], [facility] of [facility], [address] [place] [id number], [facility], [facility], [address] [place] [address], JVP W/PLT COUNT & AUTO [id number] 12:37:00 * Test Item Value Reference Range Interpretation Comments WHITE BLOOD CELL COUNT (BEAKER) (test code = 775) 0.2 K/ L 3.5- 10.5 LL RED BLOOD CELL COUNT (BEAKER) (test code = 761) 2.33 M/ L 3.93-5 .22 L HEMOGLOBIN (BEAKER) (test code = 410) 6.9 GM/DL 11.2-15.7 L HEMATOCRIT (BEAKER) (test code = 411) 20.8 % 34.1-44.9 L MEAN CORPUSCULAR VOLUME (BEAKER) (test code = 753) 89.3 fL 79. 4-94.8 MEAN CORPUSCULAR HEMOGLOBIN (BEAKER) (test code = 751) 29.6 pg 25.6-32.2 MEAN CORPUSCULAR HEMOGLOBIN CONC (BEAKER) (test code = 752) 33.2 GM/DL 32.2-35.5 RED CELL DISTRIBUTION WIDTH (BEAKER) (test code = 412) 16.8 % 11.7-14.4 H PLATELET COUNT (BEAKER) (test code = 756) 31 K/CU MM 150-450 L MEAN PLATELET VOLUME (BEAKER) (test code = 754) 12.1 fL 9.4-12 .3 NUCLEATED RED BLOOD CELLS (BEAKER) (test code = 413) 0 /100 WBC 0 -0 (CELLAVISION MANUAL DIFF)2019-11-07 12:37:00* Test Item Value Reference Range Interpretation Comments NEUTROPHILS - REL (CELLAVISION)(BEAKER) (test code = 2816) 63 % LYMPHOCYTES - REL (CELLAVISION)(BEAKER) (test code = 2817) 34 % MONOCYTES - REL (CELLAVISION)(BEAKER) (test code = 2818) 2 % BANDS - REL (CELLAVISION)(BEAKER) (test code = 2826) 1 % 0 -10 NEUTROPHILS - ABS (CELLAVISION)(BEAKER) (test code = 2830) 0.13 K/ul 1.56-6.13 L LYMPHOCYTES - ABS (CELLAVISION)(BEAKER) (test code = 2831) 0.07 K/ul 1.18-3.74 L MONOCYTES - ABS (CELLAVISION)(BEAKER) (test code = 2832) 0.00 K/uL 0.24-0.36 L BANDS - ABS (CELLAVISION)(BEAKER) (test code = 2840) 0.00 K/uL 0 .00-0.80 TOTAL COUNTED (BEAKER) (test code = 1351) 100 WBC MORPHOLOGY (BEAKER) (test code = 487) Normal PLT MORPHOLOGY (BEAKER) (test code = 486) Normal POLYCHROMATOPHILLIC RBCS(BEAKER) (test code = 478) 1+ few HYPOCHROMIA (BEAKER) (test code = 963) 2+ moderate ANISOCYTOSIS (BEAKER) (test code = 961) 1+ few POIKILOCYTES (BEAKER) (test code = 966) 1+ few SPHEROCYTES (BEAKER) (test code = 768) 1+ few OVALOCYTES (BEAKER) (test code = 477) 1+ few Compotype Operator ID - [id number] [id number] 07:00:00* Test Item Value Reference Range Interpretation Comments CULTURE (BEAKER) (test code = 1095) No growth in 5 days BLOOD [id number] 07:00:00* Test Item Value Reference Range Interpretation Comments CULTURE (BEAKER) (test code = 1095) No growth in 5 days COMPREHENSIVE METABOLIC [id number] 06:45:00* Test Item Value Reference Range Interpretation Comments TOTAL PROTEIN (BEAKER) (test code = 770) 5.4 gm/dL 6.0-8.3 L ALBUMIN (BEAKER) (test code = 1145) 3.3 g/dL 3.5-5.0 L ALKALINE PHOSPHATASE (BEAKER) (test code = 346) 117 U/L 40-150 BILIRUBIN TOTAL (BEAKER) (test code = 377) 0.8 mg/dL 0.2-1.2 SODIUM (BEAKER) (test code = 381) 138 meq/L 136-145 POTASSIUM (BEAKER) (test code = 379) 4.1 meq/L 3.5-5.1 CHLORIDE (BEAKER) (test code = 382) 106 meq/L 98-107 CO2 (BEAKER) (test code = 355) 25 meq/L 22-29 BLOOD UREA NITROGEN (BEAKER) (test code = 354) 20 mg/dL 7-21 CREATININE (BEAKER) (test code = 358) 0.72 mg/dL 0.57-1.25 GLUCOSE RANDOM (BEAKER) (test code = 652) 102 mg/dL 70-105 CALCIUM (BEAKER) (test code = 697) 8.5 mg/dL 8.4-10.2 AST (SGOT) (BEAKER) (test code = 353) 24 U/L 5-34 ALT (SGPT) (BEAKER) (test code = 347) 66 U/L 6-55 H EGFR (BEAKER) (test code = 1092) 83 mL/min/1.73 sq m ESTIMATED GFR IS NOT ACCURATE CREATININE CLEARANCE IN PREDICTING GLOMERULAR FILTRATION RATE. ESTIMATED GFR IS NOT APPLICABLE FOR DIALYSIS PATIENTS. Compotype Operator ID - CONSUELO [facility]BC W/PLT COUNT & AUTO [id number] 09:38:00* Test Item Value Reference Range Interpretation Comments WHITE BLOOD CELL COUNT (BEAKER) (test code = 775) 0.9 K/ L 3.5- 10.5 LL RED BLOOD CELL COUNT (BEAKER) (test code = 761) 2.35 M/ L 3.93-5 .22 L HEMOGLOBIN (BEAKER) (test code = 410) 7.0 GM/DL 11.2-15.7 L HEMATOCRIT (BEAKER) (test code = 411) 21.1 % 34.1-44.9 L MEAN CORPUSCULAR VOLUME (BEAKER) (test code = 753) 89.8 fL 79. 4-94.8 MEAN CORPUSCULAR HEMOGLOBIN (BEAKER) (test code = 751) 29.8 pg 25.6-32.2 MEAN CORPUSCULAR HEMOGLOBIN CONC (BEAKER) (test code = 752) 33.2 GM/DL 32.2-35.5 RED CELL DISTRIBUTION WIDTH (BEAKER) (test code = 412) 17.2 % 11.7-14.4 H PLATELET COUNT (BEAKER) (test code = 756) 40 K/CU MM 150-450 L Discordant PLT results compared to previous results; clinical correlation required. MEAN PLATELET VOLUME (BEAKER) (test code = 754) 11.4 fL 9.4-12 .3 NUCLEATED RED BLOOD CELLS (BEAKER) (test code = 413) 0 /100 WBC 0 -0 (CELLAVISION MANUAL DIFF)2019-11-06 09:38:00* Test Item Value Reference Range Interpretation Comments NEUTROPHILS - REL (CELLAVISION)(BEAKER) (test code = 2816) 89 % LYMPHOCYTES - REL (CELLAVISION)(BEAKER) (test code = 2817) 9 % MONOCYTES - REL (CELLAVISION)(BEAKER) (test code = 2818) 2 % NEUTROPHILS - ABS (CELLAVISION)(BEAKER) (test code = 2830) 0.80 K/ul 1.56-6.13 L LYMPHOCYTES - ABS (CELLAVISION)(BEAKER) (test code = 2831) 0.08 K/ul 1.18-3.74 L MONOCYTES - ABS (CELLAVISION)(BEAKER) (test code = 2832) 0.02 K/uL 0.24-0.36 L TOTAL COUNTED (BEAKER) (test code = 1351) 100 MANUAL NRBC PER 100 CELLS (BEAKER) (test code = 1353) 1 /100 WBC 0-0 H CLUMPED PLATELETS (BEAKER) (test code = 436) Present DOHLE BODIES (BEAKER) (test code = 359) Present TOXIC GRANULATION (BEAKER) (test code = 771) Present ANISOCYTOSIS (BEAKER) (test code = 961) 1+ few POIKILOCYTES (BEAKER) (test code = 966) 1+ few ARTIFACT (CELLAVISION)(BEAKER) (test code = 3432) Present HELMET CELLS (CELLAVISION)(BEAKER) (test code = 3434) 1+ few PLATELET CONCENTRATION (CELLAVISION)(BEAKER) (test code = 3438) Dec reased Compotype Operator ID - [id number] ID - Palak Engle comments: Slide comments: COMPREHENSIVE METABOLIC [id number] 07:23:00* Test Item Value Reference Range Interpretation Comments TOTAL PROTEIN (BEAKER) (test code = 770) 5.7 gm/dL 6.0-8.3 L ALBUMIN (BEAKER) (test code = 1145) 3.4 g/dL 3.5-5.0 L ALKALINE PHOSPHATASE (BEAKER) (test code = 346) 132 U/L 40-150 BILIRUBIN TOTAL (BEAKER) (test code = 377) 0.7 mg/dL 0.2-1.2 SODIUM (BEAKER) (test code = 381) 138 meq/L 136-145 POTASSIUM (BEAKER) (test code = 379) 4.0 meq/L 3.5-5.1 CHLORIDE (BEAKER) (test code = 382) 108 meq/L 98-107 H CO2 (BEAKER) (test code = 355) 23 meq/L 22-29 BLOOD UREA NITROGEN (BEAKER) (test code = 354) 20 mg/dL 7-21 CREATININE (BEAKER) (test code = 358) 0.73 mg/dL 0.57-1.25 GLUCOSE RANDOM (BEAKER) (test code = 652) 177 mg/dL 70-105 H CALCIUM (BEAKER) (test code = 697) 8.5 mg/dL 8.4-10.2 AST (SGOT) (BEAKER) (test code = 353) 33 U/L 5-34 ALT (SGPT) (BEAKER) (test code = 347) 86 U/L 6-55 H EGFR (BEAKER) (test code = 1092) 81 mL/min/1.73 sq m ESTIMATED GFR IS NOT ACCURATE CREATININE CLEARANCE IN PREDICTING GLOMERULAR FILTRATION RATE. ESTIMATED GFR IS NOT APPLICABLE FOR DIALYSIS PATIENTS. Compotype Operator ID - CONSUELO MCBC W/PLT COUNT & AUTO [id number] 13:14:00* Test Item Value Reference Range Interpretation Comments WHITE BLOOD CELL COUNT (BEAKER) (test code = 775) 2.7 K/ L 3.5- 10.5 L RED BLOOD CELL COUNT (BEAKER) (test code = 761) 2.55 M/ L 3.93-5 .22 L HEMOGLOBIN (BEAKER) (test code = 410) 7.3 GM/DL 11.2-15.7 L HEMATOCRIT (BEAKER) (test code = 411) 23.0 % 34.1-44.9 L MEAN CORPUSCULAR VOLUME (BEAKER) (test code = 753) 90.2 fL 79. 4-94.8 MEAN CORPUSCULAR HEMOGLOBIN (BEAKER) (test code = 751) 28.6 pg 25.6-32.2 MEAN CORPUSCULAR HEMOGLOBIN CONC (BEAKER) (test code = 752) 31.7 GM/DL 32.2-35.5 L RED CELL DISTRIBUTION WIDTH (BEAKER) (test code = 412) 17.6 % 11.7-14.4 H PLATELET COUNT (BEAKER) (test code = 756) 8 K/CU MM 150-450 LL MEAN PLATELET VOLUME (BEAKER) (test code = 754) Unable to report due to abnormal Platelet population distribution. NUCLEATED RED BLOOD CELLS (BEAKER) (test code = 413) 0 /100 WBC 0 -0 (CELLAVISION MANUAL DIFF)2019-11-05 13:14:00* Test Item Value Reference Range Interpretation Comments NEUTROPHILS - REL (CELLAVISION)(BEAKER) (test code = 2816) 91 % LYMPHOCYTES - REL (CELLAVISION)(BEAKER) (test code = 2817) 5 % MONOCYTES - REL (CELLAVISION)(BEAKER) (test code = 2818) 2 % BANDS - REL (CELLAVISION)(BEAKER) (test code = 2826) 2 % 0 -10 NEUTROPHILS - ABS (CELLAVISION)(BEAKER) (test code = 2830) 2.46 K/ul 1.56-6.13 LYMPHOCYTES - ABS (CELLAVISION)(BEAKER) (test code = 2831) 0.14 K/ul 1.18-3.74 L MONOCYTES - ABS (CELLAVISION)(BEAKER) (test code = 2832) 0.05 K/uL 0.24-0.36 L BANDS - ABS (CELLAVISION)(BEAKER) (test code = 2840) 0.05 K/uL 0 .00-0.80 TOTAL COUNTED (BEAKER) (test code = 1351) 100 WBC MORPHOLOGY (BEAKER) (test code = 487) Normal LARGE PLT(BEAKER) (test code = 2156) Present POLYCHROMATOPHILLIC RBCS(BEAKER) (test code = 478) 3+ many HYPOCHROMIA (BEAKER) (test code = 963) 2+ moderate ANISOCYTOSIS (BEAKER) (test code = 961) 2+ moderate MICROCYTES (BEAKER) (test code = 965) 2+ moderate POIKILOCYTES (BEAKER) (test code = 966) 2+ moderate SPHEROCYTES (BEAKER) (test code = 768) 1+ few ELLIPTOCYTES (BEAKER) (test code = 962) 1+ few OVALOCYTES (BEAKER) (test code = 477) 2+ moderate TEAR DROP CELLS (BEAKER) (test code = 481) 2+ moderate ARTIFACT (CELLAVISION)(BEAKER) (test code = 3432) Present PLATELET CONCENTRATION (CELLAVISION)(BEAKER) (test code = 3438) Dec reased Compotype Operator ID - [id number] ID - Aixa García comments: Slide comments: WBC: SEGMENTED WITH TOXIC GRANULATIONS PRESENT COMPREHENSIVE METABOLIC PANEL 2019-11-05 05:17:00* Test Item Value Reference Range Interpretation Comments TOTAL PROTEIN (BEAKER) (test code = 770) 5.9 gm/dL 6.0-8.3 L ALBUMIN (BEAKER) (test code = 1145) 3.4 g/dL 3.5-5.0 L ALKALINE PHOSPHATASE (BEAKER) (test code = 346) 147 U/L 40-150 BILIRUBIN TOTAL (BEAKER) (test code = 377) 0.8 mg/dL 0.2-1.2 SODIUM (BEAKER) (test code = 381) 138 meq/L 136-145 POTASSIUM (BEAKER) (test code = 379) 4.4 meq/L 3.5-5.1 CHLORIDE (BEAKER) (test code = 382) 108 meq/L 98-107 H CO2 (BEAKER) (test code = 355) 24 meq/L 22-29 BLOOD UREA NITROGEN (BEAKER) (test code = 354) 22 mg/dL 7-21 H CREATININE (BEAKER) (test code = 358) 0.70 mg/dL 0.57-1.25 GLUCOSE RANDOM (BEAKER) (test code = 652) 135 mg/dL 70-105 H CALCIUM (BEAKER) (test code = 697) 8.8 mg/dL 8.4-10.2 AST (SGOT) (BEAKER) (test code = 353) 53 U/L 5-34 H ALT (SGPT) (BEAKER) (test code = 347) 106 U/L 6-55 H EGFR (BEAKER) (test code = 1092) 85 mL/min/1.73 sq m ESTIMATED GFR IS NOT ACCURATE CREATININE CLEARANCE IN PREDICTING GLOMERULAR FILTRATION RATE. ESTIMATED GFR IS NOT APPLICABLE FOR DIALYSIS PATIENTS. Compotype Operator ID - CONSUELO [facility]BC W/PLT COUNT & AUTO [id number] 10:53:00* Test Item Value Reference Range Interpretation Comments WHITE BLOOD CELL COUNT (BEAKER) (test code = 775) 3.5 K/ L 3.5- 10.5 RED BLOOD CELL COUNT (BEAKER) (test code = 761) 2.63 M/ L 3.93-5 .22 L HEMOGLOBIN (BEAKER) (test code = 410) 7.6 GM/DL 11.2-15.7 L HEMATOCRIT (BEAKER) (test code = 411) 23.5 % 34.1-44.9 L MEAN CORPUSCULAR VOLUME (BEAKER) (test code = 753) 89.4 fL 79. 4-94.8 MEAN CORPUSCULAR HEMOGLOBIN (BEAKER) (test code = 751) 28.9 pg 25.6-32.2 MEAN CORPUSCULAR HEMOGLOBIN CONC (BEAKER) (test code = 752) 32.3 GM/DL 32.2-35.5 RED CELL DISTRIBUTION WIDTH (BEAKER) (test code = 412) 17.8 % 11.7-14.4 H PLATELET COUNT (BEAKER) (test code = 756) 8 K/CU MM 150-450 LL MEAN PLATELET VOLUME (BEAKER) (test code = 754) Unable to report due to abnormal Platelet population distribution. NUCLEATED RED BLOOD CELLS (BEAKER) (test code = 413) 0 /100 WBC 0 -0 (CELLAVISION MANUAL DIFF)2019-11-04 10:53:00* Test Item Value Reference Range Interpretation Comments NEUTROPHILS - REL (CELLAVISION)(BEAKER) (test code = 2816) 85 % LYMPHOCYTES - REL (CELLAVISION)(BEAKER) (test code = 2817) 5 % MONOCYTES - REL (CELLAVISION)(BEAKER) (test code = 2818) 3 % BANDS - REL (CELLAVISION)(BEAKER) (test code = 2826) 5 % 0 -10 ATYPICAL LYMPHOCYTES - REL (CELLAVISION)(BEAKER) (test code = 2829) 1 % 0-0 H NEUTROPHILS - ABS (CELLAVISION)(BEAKER) (test code = 2830) 2.98 K/ul 1.56-6.13 LYMPHOCYTES - ABS (CELLAVISION)(BEAKER) (test code = 2831) 0.18 K/ul 1.18-3.74 L MONOCYTES - ABS (CELLAVISION)(BEAKER) (test code = 2832) 0.11 K/uL 0.24-0.36 L BANDS - ABS (CELLAVISION)(BEAKER) (test code = 2840) 0.18 K/uL 0 .00-0.80 ATYPICAL LYMPHOCYTES - ABS (CELLAVISION)(BEAKER) (test code = 7748) 0.04 K/uL 0.00-0.00 H TOTAL COUNTED (BEAKER) (test code = 1351) 100 WBC MORPHOLOGY (BEAKER) (test code = 487) Normal PLT MORPHOLOGY (BEAKER) (test code = 486) Normal POLYCHROMATOPHILLIC RBCS(BEAKER) (test code = 478) 1+ few ANISOCYTOSIS (BEAKER) (test code = 961) 1+ few MICROCYTES (BEAKER) (test code = 965) 1+ few POIKILOCYTES (BEAKER) (test code = 966) 1+ few ARTIFACT (CELLAVISION)(BEAKER) (test code = 3432) Present PLATELET CONCENTRATION (CELLAVISION)(BEAKER) (test code = 3438) Dec reased Compotype Operator ID - [id number] ID - Rosalina OverholtUser comments: Slide comments: COMPREHENSIVE METABOLIC [id number] 07:14:00* Test Item Value Reference Range Interpretation Comments TOTAL PROTEIN (BEAKER) (test code = 770) 5.9 gm/dL 6.0-8.3 L ALBUMIN (BEAKER) (test code = 1145) 3.4 g/dL 3.5-5.0 L ALKALINE PHOSPHATASE (BEAKER) (test code = 346) 170 U/L 40-150 H BILIRUBIN TOTAL (BEAKER) (test code = 377) 0.7 mg/dL 0.2-1.2 SODIUM (BEAKER) (test code = 381) 140 meq/L 136-145 POTASSIUM (BEAKER) (test code = 379) 4.3 meq/L 3.5-5.1 CHLORIDE (BEAKER) (test code = 382) 110 meq/L 98-107 H CO2 (BEAKER) (test code = 355) 23 meq/L 22-29 BLOOD UREA NITROGEN (BEAKER) (test code = 354) 25 mg/dL 7-21 H CREATININE (BEAKER) (test code = 358) 0.75 mg/dL 0.57-1.25 GLUCOSE RANDOM (BEAKER) (test code = 652) 142 mg/dL 70-105 H CALCIUM (BEAKER) (test code = 697) 8.6 mg/dL 8.4-10.2 AST (SGOT) (BEAKER) (test code = 353) 54 U/L 5-34 H ALT (SGPT) (BEAKER) (test code = 347) 100 U/L 6-55 H EGFR (BEAKER) (test code = 1092) 79 mL/min/1.73 sq m ESTIMATED GFR IS NOT ACCURATE CREATININE CLEARANCE IN PREDICTING GLOMERULAR FILTRATION RATE. ESTIMATED GFR IS NOT APPLICABLE FOR DIALYSIS PATIENTS. Compotype Operator ID - CONSUELO [facility]BC W/PLT COUNT & AUTO [id number] 11:15:00* Test Item Value Reference Range Interpretation Comments WHITE BLOOD CELL COUNT (BEAKER) (test code = 775) 3.8 K/ L 3.5- 10.5 RED BLOOD CELL COUNT (BEAKER) (test code = 761) 2.53 M/ L 3.93-5 .22 L HEMOGLOBIN (BEAKER) (test code = 410) 7.4 GM/DL 11.2-15.7 L HEMATOCRIT (BEAKER) (test code = 411) 22.5 % 34.1-44.9 L MEAN CORPUSCULAR VOLUME (BEAKER) (test code = 753) 88.9 fL 79. 4-94.8 MEAN CORPUSCULAR HEMOGLOBIN (BEAKER) (test code = 751) 29.2 pg 25.6-32.2 MEAN CORPUSCULAR HEMOGLOBIN CONC (BEAKER) (test code = 752) 32.9 GM/DL 32.2-35.5 RED CELL DISTRIBUTION WIDTH (BEAKER) (test code = 412) 17.8 % 11.7-14.4 H PLATELET COUNT (BEAKER) (test code = 756) 11 K/CU MM 150-450 L MEAN PLATELET VOLUME (BEAKER) (test code = 754) Unable to report due to abnormal Platelet population distribution. NUCLEATED RED BLOOD CELLS (BEAKER) (test code = 413) 1 /100 WBC 0 -0 H (CELLAVISION MANUAL DIFF)2019-11-03 11:15:00* Test Item Value Reference Range Interpretation Comments NEUTROPHILS - REL (CELLAVISION)(BEAKER) (test code = 2816) 86 % LYMPHOCYTES - REL (CELLAVISION)(BEAKER) (test code = 2817) 7 % MONOCYTES - REL (CELLAVISION)(BEAKER) (test code = 2818) 2 % BANDS - REL (CELLAVISION)(BEAKER) (test code = 2826) 5 % 0 -10 NEUTROPHILS - ABS (CELLAVISION)(BEAKER) (test code = 2830) 3.27 K/ul 1.56-6.13 LYMPHOCYTES - ABS (CELLAVISION)(BEAKER) (test code = 2831) 0.27 K/ul 1.18-3.74 L MONOCYTES - ABS (CELLAVISION)(BEAKER) (test code = 2832) 0.08 K/uL 0.24-0.36 L BANDS - ABS (CELLAVISION)(BEAKER) (test code = 2840) 0.19 K/uL 0 .00-0.80 TOTAL COUNTED (BEAKER) (test code = 1351) 100 SMUDGE CELLS (BEAKER) (test code = 1371) Present GIANT PLATELETS (BEAKER) (test code = 313) Present TOXIC GRANULATION (BEAKER) (test code = 771) Present ANISOCYTOSIS (BEAKER) (test code = 961) 1+ few MICROCYTES (BEAKER) (test code = 965) 1+ few POIKILOCYTES (BEAKER) (test code = 966) 1+ few OVALOCYTES (BEAKER) (test code = 477) 1+ few PLATELET CONCENTRATION (CELLAVISION)(BEAKER) (test code = 3438) Dec reased Compotype Operator ID - [id number] ID - Toshia Perez comments: Slide comments: MISCELLANEOUS LAB [id number] 07:59:00* Test Item Value Reference Range Interpretation Comments SCAN RESULT (test code = 8641800) COMPREHENSIVE METABOLIC [id number] 06:08:00* Test Item Value Reference Range Interpretation Comments TOTAL PROTEIN (BEAKER) (test code = 770) 5.7 gm/dL 6.0-8.3 L ALBUMIN (BEAKER) (test code = 1145) 3.2 g/dL 3.5-5.0 L ALKALINE PHOSPHATASE (BEAKER) (test code = 346) 176 U/L 40-150 H BILIRUBIN TOTAL (BEAKER) (test code = 377) 0.6 mg/dL 0.2-1.2 SODIUM (BEAKER) (test code = 381) 139 meq/L 136-145 POTASSIUM (BEAKER) (test code = 379) 4.4 meq/L 3.5-5.1 CHLORIDE (BEAKER) (test code = 382) 111 meq/L 98-107 H CO2 (BEAKER) (test code = 355) 22 meq/L 22-29 BLOOD UREA NITROGEN (BEAKER) (test code = 354) 22 mg/dL 7-21 H CREATININE (BEAKER) (test code = 358) 0.70 mg/dL 0.57-1.25 GLUCOSE RANDOM (BEAKER) (test code = 652) 151 mg/dL 70-105 H CALCIUM (BEAKER) (test code = 697) 8.5 mg/dL 8.4-10.2 AST (SGOT) (BEAKER) (test code = 353) 43 U/L 5-34 H ALT (SGPT) (BEAKER) (test code = 347) 96 U/L 6-55 H EGFR (BEAKER) (test code = 1092) 85 mL/min/1.73 sq m ESTIMATED GFR IS NOT ACCURATE CREATININE CLEARANCE IN PREDICTING GLOMERULAR FILTRATION RATE. ESTIMATED GFR IS NOT APPLICABLE FOR DIALYSIS PATIENTS. Compotype Operator HUNG MAYERS WCBC W/PLT COUNT & AUTO [id number] 12:14:00* Test Item Value Reference Range Interpretation Comments WHITE BLOOD CELL COUNT (BEAKER) (test code = 775) 4.1 K/ L 3.5- 10.5 RED BLOOD CELL COUNT (BEAKER) (test code = 761) 2.93 M/ L 3.93-5 .22 L HEMOGLOBIN (BEAKER) (test code = 410) 8.8 GM/DL 11.2-15.7 L HEMATOCRIT (BEAKER) (test code = 411) 25.5 % 34.1-44.9 L MEAN CORPUSCULAR VOLUME (BEAKER) (test code = 753) 87.0 fL 79. 4-94.8 MEAN CORPUSCULAR HEMOGLOBIN (BEAKER) (test code = 751) 30.0 pg 25.6-32.2 MEAN CORPUSCULAR HEMOGLOBIN CONC (BEAKER) (test code = 752) 34.5 GM/DL 32.2-35.5 RED CELL DISTRIBUTION WIDTH (BEAKER) (test code = 412) 17.4 % 11.7-14.4 H PLATELET COUNT (BEAKER) (test code = 756) 14 K/CU MM 150-450 L MEAN PLATELET VOLUME (BEAKER) (test code = 754) 10.0 fL 9.4-12 .3 NUCLEATED RED BLOOD CELLS (BEAKER) (test code = 413) 1 /100 WBC 0 -0 H (CELLAVISION MANUAL DIFF)2019-11-02 12:14:00* Test Item Value Reference Range Interpretation Comments NEUTROPHILS - REL (CELLAVISION)(BEAKER) (test code = 2816) 64 % LYMPHOCYTES - REL (CELLAVISION)(BEAKER) (test code = 2817) 8 % MONOCYTES - REL (CELLAVISION)(BEAKER) (test code = 2818) 8 % METAMYELOCYTES - REL (CELLAVISION)(BEAKER) (test code = 2821) 2 % 0-0 H PROMYELOCYTES - REL (CELLAVSION)(BEAKER) (test code = 2825) 1 % 0-0 H BANDS - REL (CELLAVISION)(BEAKER) (test code = 2826) 16 % 0 -10 H NEUTROPHILS - ABS (CELLAVISION)(BEAKER) (test code = 2830) 2.62 K/ul 1.56-6.13 LYMPHOCYTES - ABS (CELLAVISION)(BEAKER) (test code = 2831) 0.33 K/ul 1.18-3.74 L MONOCYTES - ABS (CELLAVISION)(BEAKER) (test code = 2832) 0.33 K/uL 0.24-0.36 METAMYELOCYTES - ABS (CELLAVISION)(BEAKER) (test code = 2836 ) 0.08 K/uL 0.00-0.00 H PROMYELOCYTES - ABS (CELLAVISION)(BEAKER) (test code = 2838) 0.04 K/uL 0.00-0.00 H BANDS - ABS (CELLAVISION)(BEAKER) (test code = 2840) 0.66 K/uL 0 .00-0.80 TOTAL COUNTED (BEAKER) (test code = 1351) 100 MANUAL NRBC PER 100 CELLS (BEAKER) (test code = 1353) 3 /100 WBC 0-0 H SMUDGE CELLS (BEAKER) (test code = 1371) Present GIANT PLATELETS (BEAKER) (test code = 313) Present ANISOCYTOSIS (BEAKER) (test code = 961) 2+ moderate MICROCYTES (BEAKER) (test code = 965) 2+ moderate OVALOCYTES (BEAKER) (test code = 477) 1+ few ARTIFACT (CELLAVISION)(BEAKER) (test code = 3432) Present PLATELET CONCENTRATION (CELLAVISION)(BEAKER) (test code = 3438) Dec reased Compotype Operator ID - [id number] ID - Kb Daniels comments: Slide comments: MAGNESIUM 2019-11-02 06:53:00* Test Item Value Reference Range Interpretation Comments MAGNESIUM (BEAKER) (test code = 627) 2.1 mg/dL 1.6-2.6 Compotype Operator ID - PIAYA LBASIC METABOLIC [id number] 06:53:00* Test Item Value Reference Range Interpretation Comments SODIUM (BEAKER) (test code = 381) 139 meq/L 136-145 POTASSIUM (BEAKER) (test code = 379) 4.4 meq/L 3.5-5.1 CHLORIDE (BEAKER) (test code = 382) 112 meq/L 98-107 H CO2 (BEAKER) (test code = 355) 20 meq/L 22-29 L BLOOD UREA NITROGEN (BEAKER) (test code = 354) 15 mg/dL 7-21 CREATININE (BEAKER) (test code = 358) 0.72 mg/dL 0.57-1.25 GLUCOSE RANDOM (BEAKER) (test code = 652) 140 mg/dL 70-105 H CALCIUM (BEAKER) (test code = 697) 9.0 mg/dL 8.4-10.2 EGFR (BEAKER) (test code = 1092) 83 mL/min/1.73 sq m ESTIMATED GFR IS NOT ACCURATE CREATININE CLEARANCE IN PREDICTING GLOMERULAR FILTRATION RATE. ESTIMATED GFR IS NOT APPLICABLE FOR DIALYSIS PATIENTS. Compotype Operator ID - PIAYA LHEPATIC FUNCTION [id number] 15:22:00* Test Item Value Reference Range Interpretation Comments TOTAL PROTEIN (BEAKER) (test code = 770) 5.6 gm/dL 6.0-8.3 L ALBUMIN (BEAKER) (test code = 1145) 3.1 g/dL 3.5-5.0 L BILIRUBIN TOTAL (BEAKER) (test code = 377) 0.6 mg/dL 0.2-1.2 BILIRUBIN DIRECT (BEAKER) (test code = 706) 0.4 mg/dL 0.1-0.5 ALKALINE PHOSPHATASE (BEAKER) (test code = 346) 181 U/L 40-150 H AST (SGOT) (BEAKER) (test code = 353) 79 U/L 5-34 H ALT (SGPT) (BEAKER) (test code = 347) 94 U/L 6-55 H Compotype Operator ID - BSCBC W/PLT COUNT & AUTO [id number] 12:52:00* Test Item Value Reference Range Interpretation Comments WHITE BLOOD CELL COUNT (BEAKER) (test code = 775) 1.8 K/ L 3.5- 10.5 L RED BLOOD CELL COUNT (BEAKER) (test code = 761) 2.31 M/ L 3.93-5 .22 L HEMOGLOBIN (BEAKER) (test code = 410) 6.6 GM/DL 11.2-15.7 L HEMATOCRIT (BEAKER) (test code = 411) 20.2 % 34.1-44.9 L MEAN CORPUSCULAR VOLUME (BEAKER) (test code = 753) 87.4 fL 79. 4-94.8 MEAN CORPUSCULAR HEMOGLOBIN (BEAKER) (test code = 751) 28.6 pg 25.6-32.2 MEAN CORPUSCULAR HEMOGLOBIN CONC (BEAKER) (test code = 752) 32.7 GM/DL 32.2-35.5 RED CELL DISTRIBUTION WIDTH (BEAKER) (test code = 412) 18.0 % 11.7-14.4 H PLATELET COUNT (BEAKER) (test code = 756) 14 K/CU MM 150-450 L MEAN PLATELET VOLUME (BEAKER) (test code = 754) 10.0 fL 9.4-12 .3 NUCLEATED RED BLOOD CELLS (BEAKER) (test code = 413) 2 /100 WBC 0 -0 H NEUTROPHILS RELATIVE PERCENT (BEAKER) (test code = 429) 73 % LYMPHOCYTES RELATIVE PERCENT (BEAKER) (test code = 430) 14 % MONOCYTES RELATIVE PERCENT (BEAKER) (test code = 431) 8 % EOSINOPHILS RELATIVE PERCENT (BEAKER) (test code = 432) 5 % BASOPHILS RELATIVE PERCENT (BEAKER) (test code = 437) 0 % NEUTROPHILS ABSOLUTE COUNT (BEAKER) (test code = 670) 1.30 K/ L 1.56-6.13 L LYMPHOCYTES ABSOLUTE COUNT (BEAKER) (test code = 414) 0.25 K/ L 1.18-3.74 L MONOCYTES ABSOLUTE COUNT (BEAKER) (test code = 415) 0.14 K/ L 0. 24-0.36 L EOSINOPHILS ABSOLUTE COUNT (BEAKER) (test code = 416) 0.08 K/ L 0.04-0.36 BASOPHILS ABSOLUTE COUNT (BEAKER) (test code = 417) 0.00 K/ L 0. 01-0.08 L IMMATURE GRANULOCYTES-RELATIVE PERCENT (BEAKER) (test code = 2801) 1 % 0-1 [id number] 05:37:00* Test Item Value Reference Range Interpretation Comments MAGNESIUM (BEAKER) (test code = 627) 1.9 mg/dL 1.6-2.6 Compotype Operator ID - LABASIC METABOLIC [id number] 05:37:00* Test Item Value Reference Range Interpretation Comments SODIUM (BEAKER) (test code = 381) 138 meq/L 136-145 POTASSIUM (BEAKER) (test code = 379) 3.5 meq/L 3.5-5.1 CHLORIDE (BEAKER) (test code = 382) 110 meq/L 98-107 H CO2 (BEAKER) (test code = 355) 21 meq/L 22-29 L BLOOD UREA NITROGEN (BEAKER) (test code = 354) 17 mg/dL 7-21 CREATININE (BEAKER) (test code = 358) 0.72 mg/dL 0.57-1.25 GLUCOSE RANDOM (BEAKER) (test code = 652) 99 mg/dL 70-105 CALCIUM (BEAKER) (test code = 697) 8.4 mg/dL 8.4-10.2 EGFR (BEAKER) (test code = 1092) 83 mL/min/1.73 sq m ESTIMATED GFR IS NOT ACCURATE CREATININE CLEARANCE IN PREDICTING GLOMERULAR FILTRATION RATE. ESTIMATED GFR IS NOT APPLICABLE FOR DIALYSIS PATIENTS. Compotype Operator ID - LABLOOD [id number] 23:00:00* Test Item Value Reference Range Interpretation Comments CULTURE (BEAKER) (test code = 1095) No growth in 5 days BLOOD [id number] 23:00:00* Test Item Value Reference Range Interpretation Comments CULTURE (BEAKER) (test code = 1095) No growth in 5 days Bartonella Species Abs, reflex to [id number] 19:40:00* Test Item Value Reference Range Interpretation Comments B. HENSELAE (IGG) SCREEN (test code = 0745830) NEGATIVE B.Roman Igg Screen (test code = 9882151) NEGATIVE B.Henselae Igm Screen (test code = 6700830) NEGATIVE B. roman IgM Screen (test code = 1418849) NEGATIVE REFERENCE RANGE: NEGATIVE Whereas sera from 10% of healthy controls exhibit Bartonellahenselae and Bartonella roman IgG titers of 1:64 - 1:128,none show titers of 1:256 or above. Sera from 95% of patientswith clinically defined cat scratch disease show IgG titers of1:64 and above; 79% exhibit titers of 1:256 and above. IgMtiters at 1:20 or higher have not been detected in the normaladult [facility] [place]. Individuals infected with either B. henselaeor B. roman may not have initial IgG titers greater than orequal to 1:64; confirmation of infection with either organismmay therefore require testing of serial specimens to detectincreasing IgG titers or the presence of IgM. IgG cross-reactivity between B. henselae and B. roman may occur atany titer. Crossreactivity of IgM between the two species islimited, and typically is not seen. This test was developed and its analytical performancecharacteristics have been determined by [facility]. It has not been cleared or approvedby FDA. This assay has been validated pursuant to theCLIA regulations and is used for clinical purposes. KO (test code = KO) Performing Lab *[facility] [address] [place] [address] Fly Calle MD [facility] W/PLT COUNT & AUTO [id number] 11:48:00* Test Item Value Reference Range Interpretation Comments WHITE BLOOD CELL COUNT (BEAKER) (test code = 775) 1.4 K/ L 3.5- 10.5 L RED BLOOD CELL COUNT (BEAKER) (test code = 761) 2.49 M/ L 3.93-5 .22 L HEMOGLOBIN (BEAKER) (test code = 410) 7.2 GM/DL 11.2-15.7 L HEMATOCRIT (BEAKER) (test code = 411) 21.4 % 34.1-44.9 L MEAN CORPUSCULAR VOLUME (BEAKER) (test code = 753) 85.9 fL 79. 4-94.8 MEAN CORPUSCULAR HEMOGLOBIN (BEAKER) (test code = 751) 28.9 pg 25.6-32.2 MEAN CORPUSCULAR HEMOGLOBIN CONC (BEAKER) (test code = 752) 33.6 GM/DL 32.2-35.5 RED CELL DISTRIBUTION WIDTH (BEAKER) (test code = 412) 17.8 % 11.7-14.4 H PLATELET COUNT (BEAKER) (test code = 756) 19 K/CU MM 150-450 L MEAN PLATELET VOLUME (BEAKER) (test code = 754) 10.7 fL 9.4-12 .3 NUCLEATED RED BLOOD CELLS (BEAKER) (test code = 413) 2 /100 WBC 0 -0 H (CELLAVISION MANUAL DIFF)2019-10-31 11:48:00* Test Item Value Reference Range Interpretation Comments NEUTROPHILS - REL (CELLAVISION)(BEAKER) (test code = 2816) 65 % LYMPHOCYTES - REL (CELLAVISION)(BEAKER) (test code = 2817) 13 % MONOCYTES - REL (CELLAVISION)(BEAKER) (test code = 2818) 8 % METAMYELOCYTES - REL (CELLAVISION)(BEAKER) (test code = 2821) 4 % 0-0 H BANDS - REL (CELLAVISION)(BEAKER) (test code = 2826) 10 % 0 -10 NEUTROPHILS - ABS (CELLAVISION)(BEAKER) (test code = 2830) 0.91 K/ul 1.56-6.13 L LYMPHOCYTES - ABS (CELLAVISION)(BEAKER) (test code = 2831) 0.18 K/ul 1.18-3.74 L MONOCYTES - ABS (CELLAVISION)(BEAKER) (test code = 2832) 0.11 K/uL 0.24-0.36 L METAMYELOCYTES - ABS (CELLAVISION)(BEAKER) (test code = 2836 ) 0.06 K/uL 0.00-0.00 H BANDS - ABS (CELLAVISION)(BEAKER) (test code = 2840) 0.14 K/uL 0 .00-0.80 TOTAL COUNTED (BEAKER) (test code = 1351) 100 WBC MORPHOLOGY (BEAKER) (test code = 487) Normal PLT MORPHOLOGY (BEAKER) (test code = 486) Normal POLYCHROMATOPHILLIC RBCS(BEAKER) (test code = 478) 1+ few HYPOCHROMIA (BEAKER) (test code = 963) 2+ moderate ANISOCYTOSIS (BEAKER) (test code = 961) 3+ many POIKILOCYTES (BEAKER) (test code = 966) 2+ moderate SPHEROCYTES (BEAKER) (test code = 768) 1+ few ELLIPTOCYTES (BEAKER) (test code = 962) 2+ moderate OVALOCYTES (BEAKER) (test code = 477) 2+ moderate TEAR DROP CELLS (BEAKER) (test code = 481) 1+ few TITO CELLS (BEAKER) (test code = 474) 1+ few Compotype Operator ID - [id number] 07:06:00* Test Item Value Reference Range Interpretation Comments MAGNESIUM (BEAKER) (test code = 627) 2.0 mg/dL 1.6-2.6 Compotype Operator ID - CONSUELO MBASIC METABOLIC [id number] 07:06:00* Test Item Value Reference Range Interpretation Comments SODIUM (BEAKER) (test code = 381) 138 meq/L 136-145 POTASSIUM (BEAKER) (test code = 379) 3.7 meq/L 3.5-5.1 CHLORIDE (BEAKER) (test code = 382) 109 meq/L 98-107 H CO2 (BEAKER) (test code = 355) 20 meq/L 22-29 L BLOOD UREA NITROGEN (BEAKER) (test code = 354) 18 mg/dL 7-21 CREATININE (BEAKER) (test code = 358) 0.83 mg/dL 0.57-1.25 GLUCOSE RANDOM (BEAKER) (test code = 652) 170 mg/dL 70-105 H CALCIUM (BEAKER) (test code = 697) 8.3 mg/dL 8.4-10.2 L EGFR (BEAKER) (test code = 1092) 70 mL/min/1.73 sq m ESTIMATED GFR IS NOT ACCURATE CREATININE CLEARANCE IN PREDICTING GLOMERULAR FILTRATION RATE. ESTIMATED GFR IS NOT APPLICABLE FOR DIALYSIS PATIENTS. Compotype Operator ID - CONSUELO [facility] W/PLT COUNT & AUTO [id number] 09:04:00* Test Item Value Reference Range Interpretation Comments WHITE BLOOD CELL COUNT (BEAKER) (test code = 775) 1.0 K/ L 3.5- 10.5 LL RED BLOOD CELL COUNT (BEAKER) (test code = 761) 2.63 M/ L 3.93-5 .22 L HEMOGLOBIN (BEAKER) (test code = 410) 7.5 GM/DL 11.2-15.7 L HEMATOCRIT (BEAKER) (test code = 411) 22.7 % 34.1-44.9 L MEAN CORPUSCULAR VOLUME (BEAKER) (test code = 753) 86.3 fL 79. 4-94.8 MEAN CORPUSCULAR HEMOGLOBIN (BEAKER) (test code = 751) 28.5 pg 25.6-32.2 MEAN CORPUSCULAR HEMOGLOBIN CONC (BEAKER) (test code = 752) 33.0 GM/DL 32.2-35.5 RED CELL DISTRIBUTION WIDTH (BEAKER) (test code = 412) 17.3 % 11.7-14.4 H PLATELET COUNT (BEAKER) (test code = 756) 27 K/CU MM 150-450 L MEAN PLATELET VOLUME (BEAKER) (test code = 754) 10.9 fL 9.4-12 .3 NUCLEATED RED BLOOD CELLS (BEAKER) (test code = 413) 2 /100 WBC 0 -0 H (MANUAL DIFFERENTIAL)2019-10-30 09:04:00* Test Item Value Reference Range Interpretation Comments NEUTROPHILS - REL (DIFF) (BEAKER) (test code = 1359) 54 % LYMPHOCYTES - REL (DIFF) (BEAKER) (test code = 1360) 9 % MONOCYTES - REL (DIFF) (BEAKER) (test code = 1361) 2 % EOSINOPHILS - REL (DIFF) (BEAKER) (test code = 1362) 0 % BASOPHILS - REL (DIFF) (BEAKER) (test code = 1363) 0 % METAMYELOCYTES-REL (DIFF) (BEAKER) (test code = 258) 2 % 0 -0 H MYELOCYTES-REL (DIFF) (BEAKER) (test code = 1594) 1 % 0-0 H BANDS - REL (DIFF) (BEAKER) (test code = 1348) 25 % 0-10 H ATYPICAL LYMPHOCYTE - REL (DIFF) (BEAKER) (test code = 260) 7 % 0-0 H NEUTROPHILS - ABS (DIFF) (BEAKER) (test code = 1365) 0.54 K/ L 1 .80-8.00 L LYMPHOCYTES - ABS (DIFF) (BEAKER) (test code = 1366) 0.09 K/ L 1 .48-4.50 L MONOCYTES - ABS (DIFF) (BEAKER) (test code = 1367) 0.02 K/ L 0.0 0-1.30 EOSINOPHILS - ABS (DIFF) (BEAKER) (test code = 1368) 0.00 K/ L 0 .00-0.50 BASOPHILS - ABS (DIFF) (BEAKER) (test code = 1369) 0.00 K/ L 0.0 0-0.20 METAMYELOCTYES - ABS (DIFF) (BEAKER) (test code = 261) 0.02 K/ L 0.00-0.00 H BANDS-ABS (DIFF) (BEAKER) (test code = 1349) 0.3 K/ L 0.0-0.8 ATYPICAL LYMPHOCYTES - ABS (DIFF) (BEAKER) (test code = 263) 0.07 K/ L 0.00-0.00 H MYELOCYTES-ABS (DIFF) (BEAKER) (test code = 1593) 0.01 K/ L 0.00 -0.00 H TOTAL COUNTED (BEAKER) (test code = 1351) 100 BANDS + SEGMENTED NEUTROPHILS (BEAKER) (test code = 1352) 0.79 MANUAL NRBC PER 100 CELLS (BEAKER) (test code = 1353) 5 /100 WBC 0-0 H WBC MORPHOLOGY (BEAKER) (test code = 487) Normal PLT MORPHOLOGY (BEAKER) (test code = 486) Normal ANISOCYTOSIS (BEAKER) (test code = 961) 2+ moderate POLYCHROMATOPHILLIC RBCS(BEAKER) (test code = 478) 1+ few CREATINE KINASE (CK)2019-10-30 08:57:00* Test Item Value Reference Range Interpretation Comments CREATINE KINASE TOTAL (BEAKER) (test code = 380) 22 U/L 29-20 0 L Compotype Operator ID - WU LCHROMOSOMES CANCER [id number] 07:48:00* Test Item Value Reference Range Interpretation Comments SCAN RESULT (test code = 2897440) [id number] 05:50:00* Test Item Value Reference Range Interpretation Comments MAGNESIUM (BEAKER) (test code = 627) 1.9 mg/dL 1.6-2.6 Compotype Operator ID - PIAYA LBASIC METABOLIC [id number] 05:50:00* Test Item Value Reference Range Interpretation Comments SODIUM (BEAKER) (test code = 381) 136 meq/L 136-145 POTASSIUM (BEAKER) (test code = 379) 3.5 meq/L 3.5-5.1 CHLORIDE (BEAKER) (test code = 382) 107 meq/L 98-107 CO2 (BEAKER) (test code = 355) 21 meq/L 22-29 L BLOOD UREA NITROGEN (BEAKER) (test code = 354) 11 mg/dL 7-21 CREATININE (BEAKER) (test code = 358) 0.63 mg/dL 0.57-1.25 GLUCOSE RANDOM (BEAKER) (test code = 652) 203 mg/dL 70-105 H CALCIUM (BEAKER) (test code = 697) 8.3 mg/dL 8.4-10.2 L EGFR (BEAKER) (test code = 1092) 96 mL/min/1.73 sq m ESTIMATED GFR IS NOT ACCURATE CREATININE CLEARANCE IN PREDICTING GLOMERULAR FILTRATION RATE. ESTIMATED GFR IS NOT APPLICABLE FOR DIALYSIS PATIENTS. Compotype Operator ID - PIAYA LCBC W/PLT COUNT & AUTO [id number] 14:15:00* Test Item Value Reference Range Interpretation Comments WHITE BLOOD CELL COUNT (BEAKER) (test code = 775) 0.8 K/ L 3.5- 10.5 LL RED BLOOD CELL COUNT (BEAKER) (test code = 761) 2.71 M/ L 3.93-5 .22 L HEMOGLOBIN (BEAKER) (test code = 410) 7.7 GM/DL 11.2-15.7 L HEMATOCRIT (BEAKER) (test code = 411) 22.9 % 34.1-44.9 L MEAN CORPUSCULAR VOLUME (BEAKER) (test code = 753) 84.5 fL 79. 4-94.8 MEAN CORPUSCULAR HEMOGLOBIN (BEAKER) (test code = 751) 28.4 pg 25.6-32.2 MEAN CORPUSCULAR HEMOGLOBIN CONC (BEAKER) (test code = 752) 33.6 GM/DL 32.2-35.5 RED CELL DISTRIBUTION WIDTH (BEAKER) (test code = 412) 17.1 % 11.7-14.4 H PLATELET COUNT (BEAKER) (test code = 756) 32 K/CU MM 150-450 L Discordant PLT result compared to previous result; clinical correlation required. MEAN PLATELET VOLUME (BEAKER) (test code = 754) 9.1 fL 9.4-12 .3 L NUCLEATED RED BLOOD CELLS (BEAKER) (test code = 413) 0 /100 WBC 0 -0 (CELLAVISION MANUAL DIFF)2019-10-29 14:15:00* Test Item Value Reference Range Interpretation Comments NEUTROPHILS - REL (CELLAVISION)(BEAKER) (test code = 2816) 46 % LYMPHOCYTES - REL (CELLAVISION)(BEAKER) (test code = 2817) 43 % MONOCYTES - REL (CELLAVISION)(BEAKER) (test code = 2818) 4 % EOSINOPHILS - REL (CELLAVISION)(BEAKER) (test code = 2819) 1 % BASOPHILS - REL (CELLAVISION)(BEAKER) (test code = 2820) 0 % BANDS - REL (CELLAVISION)(BEAKER) (test code = 2826) 3 % 0 -10 ATYPICAL LYMPHOCYTES - REL (CELLAVISION)(BEAKER) (test code = 2829) 3 % 0-0 H NEUTROPHILS - ABS (CELLAVISION)(BEAKER) (test code = 2830) 0.37 K/ul 1.56-6.13 L LYMPHOCYTES - ABS (CELLAVISION)(BEAKER) (test code = 2831) 0.34 K/ul 1.18-3.74 L MONOCYTES - ABS (CELLAVISION)(BEAKER) (test code = 2832) 0.03 K/uL 0.24-0.36 L EOSINOPHILS - ABS (CELLAVISION)(BEAKER) (test code = 2834) 0.01 K/uL 0.04-0.36 L BASOPHILS - ABS (CELLAVISION)(BEAKER) (test code = 2835) 0.00 K/uL 0.01-0.08 L BANDS - ABS (CELLAVISION)(BEAKER) (test code = 2840) 0.02 K/uL 0 .00-0.80 ATYPICAL LYMPHOCYTES - ABS (CELLAVISION)(BEAKER) (test code = 2858) 0.02 K/uL 0.00-0.00 H TOTAL COUNTED (BEAKER) (test code = 1351) 100 WBC MORPHOLOGY (BEAKER) (test code = 487) Normal PLT MORPHOLOGY (BEAKER) (test code = 486) Normal SPHEROCYTES (BEAKER) (test code = 768) 1+ few OVALOCYTES (BEAKER) (test code = 477) 1+ few PLATELET CONCENTRATION (CELLAVISION)(BEAKER) (test code = 3438) Dec reased Compotype Operator ID - [id number] LEVEL, [id number] 13:21:00* Test Item Value Reference Range Interpretation Comments VANCOMYCIN TROUGH (BEAKER) (test code = 522) 14.1 ug/mL 10.0-20.0 Compotype Operator ID - [id number] 05:34:00* Test Item Value Reference Range Interpretation Comments MAGNESIUM (BEAKER) (test code = 627) 2.1 mg/dL 1.6-2.6 Compotype Operator ID - PIAYA LBASIC METABOLIC [id number] 05:34:00* Test Item Value Reference Range Interpretation Comments SODIUM (BEAKER) (test code = 381) 140 meq/L 136-145 POTASSIUM (BEAKER) (test code = 379) 3.8 meq/L 3.5-5.1 CHLORIDE (BEAKER) (test code = 382) 108 meq/L 98-107 H CO2 (BEAKER) (test code = 355) 25 meq/L 22-29 BLOOD UREA NITROGEN (BEAKER) (test code = 354) 9 mg/dL 7-21 CREATININE (BEAKER) (test code = 358) 0.61 mg/dL 0.57-1.25 GLUCOSE RANDOM (BEAKER) (test code = 652) 97 mg/dL 70-105 CALCIUM (BEAKER) (test code = 697) 8.3 mg/dL 8.4-10.2 L EGFR (BEAKER) (test code = 1092) 100 mL/min/1.73 sq m ESTIMATED GFR IS NOT ACCURATE CREATININE CLEARANCE IN PREDICTING GLOMERULAR FILTRATION RATE. ESTIMATED GFR IS NOT APPLICABLE FOR DIALYSIS PATIENTS. Compotype Operator ID - WU L(CELLAVISION MANUAL DIFF)2019-10-28 10:32:00* Test Item Value Reference Range Interpretation Comments NEUTROPHILS - REL (CELLAVISION)(BEAKER) (test code = 2816) 63 % LYMPHOCYTES - REL (CELLAVISION)(BEAKER) (test code = 2817) 34 % MONOCYTES - REL (CELLAVISION)(BEAKER) (test code = 2818) 2 % BANDS - REL (CELLAVISION)(BEAKER) (test code = 2826) 2 % 0 -10 NEUTROPHILS - ABS (CELLAVISION)(BEAKER) (test code = 2830) 0.57 K/ul 1.56-6.13 L LYMPHOCYTES - ABS (CELLAVISION)(BEAKER) (test code = 2831) 0.31 K/ul 1.18-3.74 L MONOCYTES - ABS (CELLAVISION)(BEAKER) (test code = 2832) 0.02 K/uL 0.24-0.36 L BANDS - ABS (CELLAVISION)(BEAKER) (test code = 2840) 0.02 K/uL 0 .00-0.80 TOTAL COUNTED (BEAKER) (test code = 1351) 100 MANUAL NRBC PER 100 CELLS (BEAKER) (test code = 1353) 7 /100 WBC 0-0 H WBC MORPHOLOGY (BEAKER) (test code = 487) Normal GIANT PLATELETS (BEAKER) (test code = 313) Present POLYCHROMATOPHILLIC RBCS(BEAKER) (test code = 478) 2+ moderate HYPOCHROMIA (BEAKER) (test code = 963) 2+ moderate ANISOCYTOSIS (BEAKER) (test code = 961) 2+ moderate MICROCYTES (BEAKER) (test code = 965) 2+ moderate POIKILOCYTES (BEAKER) (test code = 966) 2+ moderate SPHEROCYTES (BEAKER) (test code = 768) 1+ few ELLIPTOCYTES (BEAKER) (test code = 962) 1+ few OVALOCYTES (BEAKER) (test code = 477) 2+ moderate TEAR DROP CELLS (BEAKER) (test code = 481) 1+ few ARTIFACT (CELLAVISION)(BEAKER) (test code = 3432) Present PLATELET CONCENTRATION (CELLAVISION)(BEAKER) (test code = 3438) Dec reased Compotype Operator ID - [id number] ID - Aixa SutherlandUser comments: Slide comments: WBC: SEGMENTED WITH TOXIC GRANULATIONS PRESENTCBC W/PLT COUNT & AUTO [id number] 10:32:00* Test Item Value Reference Range Interpretation Comments WHITE BLOOD CELL COUNT (BEAKER) (test code = 775) 0.9 K/ L 3.5- 10.5 LL RED BLOOD CELL COUNT (BEAKER) (test code = 761) 2.96 M/ L 3.93-5 .22 L HEMOGLOBIN (BEAKER) (test code = 410) 8.5 GM/DL 11.2-15.7 L HEMATOCRIT (BEAKER) (test code = 411) 25.0 % 34.1-44.9 L MEAN CORPUSCULAR VOLUME (BEAKER) (test code = 753) 84.5 fL 79. 4-94.8 MEAN CORPUSCULAR HEMOGLOBIN (BEAKER) (test code = 751) 28.7 pg 25.6-32.2 MEAN CORPUSCULAR HEMOGLOBIN CONC (BEAKER) (test code = 752) 34.0 GM/DL 32.2-35.5 RED CELL DISTRIBUTION WIDTH (BEAKER) (test code = 412) 17.3 % 11.7-14.4 H PLATELET COUNT (BEAKER) (test code = 756) 9 K/CU MM 150-450 LL MEAN PLATELET VOLUME (BEAKER) (test code = 754) Unable to report due to abnormal Platelet population distribution. NUCLEATED RED BLOOD CELLS (BEAKER) (test code = 413) 2 /100 WBC 0 -0 H [id number] 07:40:00* Test Item Value Reference Range Interpretation Comments MAGNESIUM (BEAKER) (test code = 627) 2.3 mg/dL 1.6-2.6 Compotype Operator ID - PIAYA LBASIC METABOLIC [id number] 07:40:00* Test Item Value Reference Range Interpretation Comments SODIUM (BEAKER) (test code = 381) 141 meq/L 136-145 POTASSIUM (BEAKER) (test code = 379) 3.9 meq/L 3.5-5.1 CHLORIDE (BEAKER) (test code = 382) 109 meq/L 98-107 H CO2 (BEAKER) (test code = 355) 24 meq/L 22-29 BLOOD UREA NITROGEN (BEAKER) (test code = 354) 9 mg/dL 7-21 CREATININE (BEAKER) (test code = 358) 0.55 mg/dL 0.57-1.25 L GLUCOSE RANDOM (BEAKER) (test code = 652) 90 mg/dL 70-105 CALCIUM (BEAKER) (test code = 697) 8.6 mg/dL 8.4-10.2 EGFR (BEAKER) (test code = 1092) 113 mL/min/1.73 sq m ESTIMATED GFR IS NOT ACCURATE CREATININE CLEARANCE IN PREDICTING GLOMERULAR FILTRATION RATE. ESTIMATED GFR IS NOT APPLICABLE FOR DIALYSIS PATIENTS. Compotype Operator ID - PIAYA LPrepare Leuko-Red [id number] 23:54:00* Test Item Value Reference Range Interpretation Comments Unit ABO (test code = 0514517) O Pos UNIT NUMBER (test code = 934-0) [id number] Status (test code = 7572460) TX_TIMEINCHART Blood Bank Product (test code = 2263) RED BLOOD CELLS PRODUCT CODE (test code = 933-2) [id number] CROSSMATCH (test code = 2264) [facility] [id number] 22:01:00* Test Item Value Reference Range Interpretation Comments CULTURE (BEAKER) (test code = 1095) No growth in 5 days BLOOD [id number] 22:01:00* Test Item Value Reference Range Interpretation Comments CULTURE (BEAKER) (test code = 1095) No growth in 5 days CBC W/PLT COUNT & AUTO [id number] 11:08:00* Test Item Value Reference Range Interpretation Comments WHITE BLOOD CELL COUNT (BEAKER) (test code = 775) 0.8 K/ L 3.5- 10.5 LL RED BLOOD CELL COUNT (BEAKER) (test code = 761) 3.02 M/ L 3.93-5 .22 L HEMOGLOBIN (BEAKER) (test code = 410) 8.7 GM/DL 11.2-15.7 L HEMATOCRIT (BEAKER) (test code = 411) 25.4 % 34.1-44.9 L MEAN CORPUSCULAR VOLUME (BEAKER) (test code = 753) 84.1 fL 79. 4-94.8 MEAN CORPUSCULAR HEMOGLOBIN (BEAKER) (test code = 751) 28.8 pg 25.6-32.2 MEAN CORPUSCULAR HEMOGLOBIN CONC (BEAKER) (test code = 752) 34.3 GM/DL 32.2-35.5 RED CELL DISTRIBUTION WIDTH (BEAKER) (test code = 412) 17.7 % 11.7-14.4 H PLATELET COUNT (BEAKER) (test code = 756) 12 K/CU MM 150-450 L MEAN PLATELET VOLUME (BEAKER) (test code = 754) Unable to report due to abnormal Platelet population distribution. NUCLEATED RED BLOOD CELLS (BEAKER) (test code = 413) 0 /100 WBC 0 -0 (MANUAL DIFFERENTIAL)2019-10-27 11:08:00* Test Item Value Reference Range Interpretation Comments NEUTROPHILS - REL (DIFF) (BEAKER) (test code = 1359) 41 % LYMPHOCYTES - REL (DIFF) (BEAKER) (test code = 1360) 39 % MONOCYTES - REL (DIFF) (BEAKER) (test code = 1361) 8 % EOSINOPHILS - REL (DIFF) (BEAKER) (test code = 1362) 2 % BANDS - REL (DIFF) (BEAKER) (test code = 1348) 10 % 0-10 NEUTROPHILS - ABS (DIFF) (BEAKER) (test code = 1365) 0.33 K/ L 1 .80-8.00 L LYMPHOCYTES - ABS (DIFF) (BEAKER) (test code = 1366) 0.31 K/ L 1 .48-4.50 L MONOCYTES - ABS (DIFF) (BEAKER) (test code = 1367) 0.06 K/ L 0.0 0-1.30 EOSINOPHILS - ABS (DIFF) (BEAKER) (test code = 1368) 0.02 K/ L 0 .00-0.50 BANDS-ABS (DIFF) (BEAKER) (test code = 1349) 0.1 K/ L 0.0-0.8 TOTAL COUNTED (BEAKER) (test code = 1351) 100 BANDS + SEGMENTED NEUTROPHILS (BEAKER) (test code = 1352) 0.41 PLT MORPHOLOGY (BEAKER) (test code = 486) Normal ATYPICAL LYMPHS(BEAKER) (test code = 1048) Present ANISOCYTOSIS (BEAKER) (test code = 961) 2+ moderate HYPOCHROMIA (BEAKER) (test code = 963) 1+ few MACROCYTES (BEAKER) (test code = 964) 2+ moderate MICROCYTES (BEAKER) (test code = 965) 1+ few OVALOCYTES (BEAKER) (test code = 477) 1+ few POIKILOCYTES (BEAKER) (test code = 966) 1+ few [id number] 06:56:00* Test Item Value Reference Range Interpretation Comments MAGNESIUM (BEAKER) (test code = 627) 2.3 mg/dL 1.6-2.6 Compotype Operator ID - WU LBASIC METABOLIC [id number] 06:56:00* Test Item Value Reference Range Interpretation Comments SODIUM (BEAKER) (test code = 381) 140 meq/L 136-145 POTASSIUM (BEAKER) (test code = 379) 3.7 meq/L 3.5-5.1 CHLORIDE (BEAKER) (test code = 382) 109 meq/L 98-107 H CO2 (BEAKER) (test code = 355) 25 meq/L 22-29 BLOOD UREA NITROGEN (BEAKER) (test code = 354) 10 mg/dL 7-21 CREATININE (BEAKER) (test code = 358) 0.60 mg/dL 0.57-1.25 GLUCOSE RANDOM (BEAKER) (test code = 652) 95 mg/dL 70-105 CALCIUM (BEAKER) (test code = 697) 8.5 mg/dL 8.4-10.2 EGFR (BEAKER) (test code = 1092) 102 mL/min/1.73 sq m ESTIMATED GFR IS NOT ACCURATE CREATININE CLEARANCE IN PREDICTING GLOMERULAR FILTRATION RATE. ESTIMATED GFR IS NOT APPLICABLE FOR DIALYSIS PATIENTS. Compotype Operator ID - WU LUrinalysis with Microscopic If [id number] 00:35:00 * Test Item Value Reference Range Interpretation Comments Color, UA (test code = 5778-6) Colorless Clarity, UA (test code = 5767-9) Clear Specific [place], UA (test code = 5811-5) 1.006 1.001-1.035 pH, UA (test code = 5803-2) 7.0 5.0-8.0 Protein, UA (test code = 73300-7) Negative Negative Glucose, UA (test code = 365) Negative Negative Ketones, UA (test code = 2514-8) Negative Negative Bilirubin, UA (test code = 19868-0) Negative Negative Blood, UA (test code = 49081-6) Negative Negative Nitrite, UA (test code = 5802-4) Negative Negative Leukocytes, UA (test code = 5799-2) Negative Negative Urobilinogen, UA (test code = 96459-3) 0.2 mg/dL 0.2-1 Specimen Source (test code = 2795) KO (test code = KO) Compotype Operator ID - [auto]Compotype Operator ID - christiane Compotype Operator [facility] [id number] 00:35:00* Test Item Value Reference Range Interpretation Comments COLOR (BEAKER) (test code = 470) Colorless CLARITY (BEAKER) (test code = 469) Clear SPECIFIC GRAVITY UA (BEAKER) (test code = 468) 1.006 1.001-1 .035 PH UA (BEAKER) (test code = 467) 7.0 5.0-8.0 PROTEIN UA (BEAKER) (test code = 464) Negative Negative GLUCOSE UA (BEAKER) (test code = 365) Negative Negative KETONES UA (BEAKER) (test code = 371) Negative Negative BILIRUBIN UA (BEAKER) (test code = 462) Negative Negative BLOOD UA (BEAKER) (test code = 461) Negative Negative NITRITE UA (BEAKER) (test code = 465) Negative Negative LEUKOCYTE ESTERASE UA (BEAKER) (test code = 466) Negative Negat neetu UROBILINOGEN UA (BEAKER) (test code = 463) 0.2 mg/dL 0.2-1.0 SOURCE(BEAKER) (test code = 2795) Compotype Operator ID - [auto]Compotype Operator ID - hankOperator ID - hankCBC W/PLT COUNT & AUTO [id number] 12:51:00* Test Item Value Reference Range Interpretation Comments WHITE BLOOD CELL COUNT (BEAKER) (test code = 775) 0.5 K/ L 3.5- 10.5 LL RED BLOOD CELL COUNT (BEAKER) (test code = 761) 2.28 M/ L 3.93-5 .22 L HEMOGLOBIN (BEAKER) (test code = 410) 6.7 GM/DL 11.2-15.7 L HEMATOCRIT (BEAKER) (test code = 411) 19.8 % 34.1-44.9 L MEAN CORPUSCULAR VOLUME (BEAKER) (test code = 753) 86.8 fL 79. 4-94.8 MEAN CORPUSCULAR HEMOGLOBIN (BEAKER) (test code = 751) 29.4 pg 25.6-32.2 MEAN CORPUSCULAR HEMOGLOBIN CONC (BEAKER) (test code = 752) 33.8 GM/DL 32.2-35.5 RED CELL DISTRIBUTION WIDTH (BEAKER) (test code = 412) 17.2 % 11.7-14.4 H PLATELET COUNT (BEAKER) (test code = 756) 20 K/CU MM 150-450 L MEAN PLATELET VOLUME (BEAKER) (test code = 754) 11.2 fL 9.4-12 .3 NUCLEATED RED BLOOD CELLS (BEAKER) (test code = 413) 4 /100 WBC 0 -0 H (CELLAVISION MANUAL DIFF)2019-10-26 12:51:00* Test Item Value Reference Range Interpretation Comments NEUTROPHILS - REL (CELLAVISION)(BEAKER) (test code = 2816) 35 % LYMPHOCYTES - REL (CELLAVISION)(BEAKER) (test code = 2817) 49 % MONOCYTES - REL (CELLAVISION)(BEAKER) (test code = 2818) 5 % EOSINOPHILS - REL (CELLAVISION)(BEAKER) (test code = 2819) 3 % BASOPHILS - REL (CELLAVISION)(BEAKER) (test code = 2820) 1 % BANDS - REL (CELLAVISION)(BEAKER) (test code = 2826) 4 % 0 -10 ATYPICAL LYMPHOCYTES - REL (CELLAVISION)(BEAKER) (test code = 2829) 2 % 0-0 H NEUTROPHILS - ABS (CELLAVISION)(BEAKER) (test code = 2830) 0.18 K/ul 1.56-6.13 L LYMPHOCYTES - ABS (CELLAVISION)(BEAKER) (test code = 2831) 0.25 K/ul 1.18-3.74 L MONOCYTES - ABS (CELLAVISION)(BEAKER) (test code = 2832) 0.03 K/uL 0.24-0.36 L EOSINOPHILS - ABS (CELLAVISION)(BEAKER) (test code = 2834) 0.02 K/uL 0.04-0.36 L BASOPHILS - ABS (CELLAVISION)(BEAKER) (test code = 2835) 0.01 K/uL 0.01-0.08 BANDS - ABS (CELLAVISION)(BEAKER) (test code = 2840) 0.02 K/uL 0 .00-0.80 ATYPICAL LYMPHOCYTES - ABS (CELLAVISION)(BEAKER) (test code = 2858) 0.01 K/uL 0.00-0.00 H TOTAL COUNTED (BEAKER) (test code = 1351) 100 MANUAL NRBC PER 100 CELLS (BEAKER) (test code = 1353) 3 /100 WBC 0-0 H WBC MORPHOLOGY (BEAKER) (test code = 487) Normal PLT MORPHOLOGY (BEAKER) (test code = 486) Normal POLYCHROMATOPHILLIC RBCS(BEAKER) (test code = 478) 1+ few HYPOCHROMIA (BEAKER) (test code = 963) 2+ moderate ANISOCYTOSIS (BEAKER) (test code = 961) 1+ few POIKILOCYTES (BEAKER) (test code = 966) 1+ few SPHEROCYTES (BEAKER) (test code = 768) 1+ few OVALOCYTES (BEAKER) (test code = 477) 1+ few Compotype Operator ID - [id number] 06:17:00* Test Item Value Reference Range Interpretation Comments MAGNESIUM (BEAKER) (test code = 627) 2.1 mg/dL 1.6-2.6 Compotype Operator ID - TALIB WBASIC METABOLIC [id number] 06:17:00* Test Item Value Reference Range Interpretation Comments SODIUM (BEAKER) (test code = 381) 138 meq/L 136-145 POTASSIUM (BEAKER) (test code = 379) 3.7 meq/L 3.5-5.1 CHLORIDE (BEAKER) (test code = 382) 106 meq/L 98-107 CO2 (BEAKER) (test code = 355) 25 meq/L 22-29 BLOOD UREA NITROGEN (BEAKER) (test code = 354) 11 mg/dL 7-21 CREATININE (BEAKER) (test code = 358) 0.56 mg/dL 0.57-1.25 L GLUCOSE RANDOM (BEAKER) (test code = 652) 98 mg/dL 70-105 CALCIUM (BEAKER) (test code = 697) 8.2 mg/dL 8.4-10.2 L EGFR (BEAKER) (test code = 1092) 110 mL/min/1.73 sq m ESTIMATED GFR IS NOT ACCURATE CREATININE CLEARANCE IN PREDICTING GLOMERULAR FILTRATION RATE. ESTIMATED GFR IS NOT APPLICABLE FOR DIALYSIS PATIENTS. Compotype Operator ID - TALIB WCBC W/PLT COUNT & AUTO [id number] 13:21:00* Test Item Value Reference Range Interpretation Comments WHITE BLOOD CELL COUNT (BEAKER) (test code = 775) 0.4 K/ L 3.5- 10.5 LL RED BLOOD CELL COUNT (BEAKER) (test code = 761) 2.67 M/ L 3.93-5 .22 L HEMOGLOBIN (BEAKER) (test code = 410) 7.9 GM/DL 11.2-15.7 L HEMATOCRIT (BEAKER) (test code = 411) 23.2 % 34.1-44.9 L MEAN CORPUSCULAR VOLUME (BEAKER) (test code = 753) 86.9 fL 79. 4-94.8 MEAN CORPUSCULAR HEMOGLOBIN (BEAKER) (test code = 751) 29.6 pg 25.6-32.2 MEAN CORPUSCULAR HEMOGLOBIN CONC (BEAKER) (test code = 752) 34.1 GM/DL 32.2-35.5 RED CELL DISTRIBUTION WIDTH (BEAKER) (test code = 412) 17.0 % 11.7-14.4 H PLATELET COUNT (BEAKER) (test code = 756) 32 K/CU MM 150-450 L Discordant PLT results compared to previous results; clinical correlation required. MEAN PLATELET VOLUME (BEAKER) (test code = 754) 9.5 fL 9.4-12 .3 NUCLEATED RED BLOOD CELLS (BEAKER) (test code = 413) 5 /100 WBC 0 -0 H (CELLAVISION MANUAL DIFF)2019-10-25 13:21:00* Test Item Value Reference Range Interpretation Comments NEUTROPHILS - REL (CELLAVISION)(BEAKER) (test code = 2816) 34 % LYMPHOCYTES - REL (CELLAVISION)(BEAKER) (test code = 2817) 42 % MONOCYTES - REL (CELLAVISION)(BEAKER) (test code = 2818) 16 % EOSINOPHILS - REL (CELLAVISION)(BEAKER) (test code = 2819) 1 % MYELOCYTES - REL (CELLAVISION)(BEAKER) (test code = 2822) 2 % 0-0 H BANDS - REL (CELLAVISION)(BEAKER) (test code = 2826) 1 % 0 -10 BLASTS - REL (CELLAVISION)(BEAKER) (test code = 2827) 4 % 0-0 H NEUTROPHILS - ABS (CELLAVISION)(BEAKER) (test code = 2830) 0.14 K/ul 1.56-6.13 L LYMPHOCYTES - ABS (CELLAVISION)(BEAKER) (test code = 2831) 0.17 K/ul 1.18-3.74 L MONOCYTES - ABS (CELLAVISION)(BEAKER) (test code = 2832) 0.06 K/uL 0.24-0.36 L EOSINOPHILS - ABS (CELLAVISION)(BEAKER) (test code = 2834) 0.00 K/uL 0.04-0.36 L MYELOCYTES-ABS (CELLAVISION)(BEAKER) (test code = 2837) 0.01 K/uL 0.00-0.00 H BANDS - ABS (CELLAVISION)(BEAKER) (test code = 2840) 0.00 K/uL 0 .00-0.80 BLASTS - ABS (CELLAVISION)(BEAKER) (test code = 2845) 0.02 K/uL 0.00-0.00 H TOTAL COUNTED (BEAKER) (test code = 1351) 100 RBC MORPHOLOGY (BEAKER) (test code = 762) Normal WBC MORPHOLOGY (BEAKER) (test code = 487) Normal PLT MORPHOLOGY (BEAKER) (test code = 486) Normal Compotype Operator ID - [id number] 06:06:00* Test Item Value Reference Range Interpretation Comments MAGNESIUM (BEAKER) (test code = 627) 2.2 mg/dL 1.6-2.6 Compotype Operator ID - CONSUELO MBASIC METABOLIC [id number] 06:06:00* Test Item Value Reference Range Interpretation Comments SODIUM (BEAKER) (test code = 381) 139 meq/L 136-145 POTASSIUM (BEAKER) (test code = 379) 4.2 meq/L 3.5-5.1 CHLORIDE (BEAKER) (test code = 382) 106 meq/L 98-107 CO2 (BEAKER) (test code = 355) 28 meq/L 22-29 BLOOD UREA NITROGEN (BEAKER) (test code = 354) 11 mg/dL 7-21 CREATININE (BEAKER) (test code = 358) 0.58 mg/dL 0.57-1.25 GLUCOSE RANDOM (BEAKER) (test code = 652) 98 mg/dL 70-105 CALCIUM (BEAKER) (test code = 697) 8.5 mg/dL 8.4-10.2 EGFR (BEAKER) (test code = 1092) 106 mL/min/1.73 sq m ESTIMATED GFR IS NOT ACCURATE CREATININE CLEARANCE IN PREDICTING GLOMERULAR FILTRATION RATE. ESTIMATED GFR IS NOT APPLICABLE FOR DIALYSIS PATIENTS. Compotype Operator ID - CONSUELO MFLOW CYTOMETRY [id number] 13:36:00* Test Item Value Reference Range Interpretation Comments FLOW CYTOMETRY RESULT POINTER (DEBBIE) (test code = 2758) See parate Report FLOW CYTOMETRY AP CASE # (DEBBIE) (test code = 2759) [id number] CT, [id number] 12:28:00FINAL REPORT CT of the chest, abdomen and [...] glands are normal. Kidneys demonstrate no mass, hydroneph rosis or radiopaque stone. No evidence of bowel obstruction, or abnormal bowel w all thickening. There is a moderate to large amount of fecal content in colon pathak ggests constipation. Appendix is not clearly identified, but there is no pericec al inflammatory change. In the pelvis, bladder, uterus and adnexa are unremarkab le. No ascites, free air, or lymphadenopathy. No suspicious bony lesion. Impress ion: A few tiny new hypodensities in the spleen, possibly reflecting microabsces s given history of neutropenic fever. Resolution of small groundglass foci in ri ght upper lobe. Signed: Kenzie Villeda MDReport Verified Date/Time: 10/24/2019 12:28: 17 Reading Location: [facility] C013X Ortho Consult Reading Room Electronical ly signed by: KENZIE VILLEDA M.D. on 10/24/2019 12:[address], CHEST, WITH CONTRAST 2019-10-24 12:28:00FINAL REPORT CT of the chest, abdomen and [...] glands are normal. Kidneys demonstrate no mass, hydroneph rosis or radiopaque stone. No evidence of bowel obstruction, or abnormal bowel w all thickening. There is a moderate to large amount of fecal content in colon pathak ggests constipation. Appendix is not clearly identified, but there is no pericec al inflammatory change. In the pelvis, bladder, uterus and adnexa are unremarkab le. No ascites, free air, or lymphadenopathy. No suspicious bony lesion. Impress ion: A few tiny new hypodensities in the spleen, possibly reflecting microabsces s given history of neutropenic fever. Resolution of small groundglass foci in ri ght upper lobe. Signed: Kenzie Villeda MDReport Verified Date/Time: 10/24/2019 12:28: 17 Reading Location: [facility] C013X Ortho Consult Reading Room Electronical ly signed by: KENZIE VILLEDA M.D. on 10/24/2019 12:[address] chest with IV contrast 2019-10-24 12:28:00Interface, External Ris In - 10/24/2019 12:[address] of the chest, abdomen and [...] bony lesion. Impression: A few tiny new hypodens ities in the spleen, possibly reflecting microabscess given history of neutropen ic fever. Resolution of small groundglass foci in right upper lobe. Signed: Kenzie Villeda MDReport Verified Date/Time: 10/24/2019 12:28:17 Reading Location: [facility] B1 C013X Ortho Consult Reading Room [facility] W/PLT COUNT & AUTO [id number] 10:32:00* Test Item Value Reference Range Interpretation Comments WHITE BLOOD CELL COUNT (BEAKER) (test code = 775) 0.3 K/ L 3.5- 10.5 LL RED BLOOD CELL COUNT (BEAKER) (test code = 761) 2.71 M/ L 3.93-5 .22 L HEMOGLOBIN (BEAKER) (test code = 410) 7.8 GM/DL 11.2-15.7 L HEMATOCRIT (BEAKER) (test code = 411) 23.4 % 34.1-44.9 L MEAN CORPUSCULAR VOLUME (BEAKER) (test code = 753) 86.3 fL 79. 4-94.8 MEAN CORPUSCULAR HEMOGLOBIN (BEAKER) (test code = 751) 28.8 pg 25.6-32.2 MEAN CORPUSCULAR HEMOGLOBIN CONC (BEAKER) (test code = 752) 33.3 GM/DL 32.2-35.5 RED CELL DISTRIBUTION WIDTH (BEAKER) (test code = 412) 17.0 % 11.7-14.4 H PLATELET COUNT (BEAKER) (test code = 756) 11 K/CU MM 150-450 L MEAN PLATELET VOLUME (BEAKER) (test code = 754) 9.2 fL 9.4-12 .3 L NUCLEATED RED BLOOD CELLS (BEAKER) (test code = 413) 6 /100 WBC 0 -0 H (CELLAVISION MANUAL DIFF)2019-10-24 10:32:00* Test Item Value Reference Range Interpretation Comments NEUTROPHILS - REL (CELLAVISION)(BEAKER) (test code = 2816) 28 % LYMPHOCYTES - REL (CELLAVISION)(BEAKER) (test code = 2817) 60 % MONOCYTES - REL (CELLAVISION)(BEAKER) (test code = 2818) 4 % BANDS - REL (CELLAVISION)(BEAKER) (test code = 2826) 1 % 0 -10 ATYPICAL LYMPHOCYTES - REL (CELLAVISION)(BEAKER) (test code = 2829) 7 % 0-0 H NEUTROPHILS - ABS (CELLAVISION)(BEAKER) (test code = 2830) 0.08 K/ul 1.56-6.13 L LYMPHOCYTES - ABS (CELLAVISION)(BEAKER) (test code = 2831) 0.18 K/ul 1.18-3.74 L MONOCYTES - ABS (CELLAVISION)(BEAKER) (test code = 2832) 0.01 K/uL 0.24-0.36 L BANDS - ABS (CELLAVISION)(BEAKER) (test code = 2840) 0.00 K/uL 0 .00-0.80 ATYPICAL LYMPHOCYTES - ABS (CELLAVISION)(BEAKER) (test code = 2858) 0.02 K/uL 0.00-0.00 H TOTAL COUNTED (BEAKER) (test code = 1351) 100 MANUAL NRBC PER 100 CELLS (BEAKER) (test code = 1353) 7 /100 WBC 0-0 H PLT MORPHOLOGY (BEAKER) (test code = 486) Normal TOXIC GRANULATION (BEAKER) (test code = 771) Present POLYCHROMATOPHILLIC RBCS(BEAKER) (test code = 478) 1+ few ANISOCYTOSIS (BEAKER) (test code = 961) 1+ few PLATELET CONCENTRATION (CELLAVISION)(BEAKER) (test code = 3438) Dec reased Compotype Operator ID - [id number] ID - Palak Engle comments: Slide comments: WBC: Cell d ifferntial performed on buffy coat smearFLOW [id number] 08:37:00Flow Cytometry Report Case: [id number] Authorizing Provider: Abdulkadir Muller MD Collected: 10/23/2019 04:00 PM Ordering Location: [address] Received: 10/23/2019 04:22 PM SERVICE Pathologist: Jeremy Donahue MD Specimen: Other BONE MARROW, FLOW CYTOMETRY:MYELOBLASTS ACCOUNT FOR 7.68% OF ANALYZED EVENTS.CORRELATION WITH MORPHOLOGIC FINDINGS OF THE BONE MARROW STUDY REQUIRED. 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 Bone marrowcytoplasmic (c) MPO, cCD79a, CD34, CD19, CD7, CD3, cCD3, CD45, CD16, CD13, CD117, CD11b, CD10, CD36, CD64, CD33, CD14, HLA-DR, cTdT, CD56.Specimen Viability: 80.7%Myeloblasts account for 7.68% of total cellularity and demonstrate the following immunopr ofile.POSITIVE: CD34, CD7, CD117, HLA-DR, CD33, [id number]: MPO, CD19, cCD79a, cCD3, CD3, CD16, CD11b, CD36, CD64, CD14, CD56, CD10, TDTIn addition, the follo wing populations are identified:Lymphocytes: Bright CD45+ lymphocytes comprise 3 0.9% of total cells. Myeloid/monocytic populations: As identified by CD45 and li ght scatter characteristics, granulocytes comprise the majority of cells analyze d, and monocytes comprise 3.19% of total cells.The remaining events analyzed rep resent nonviable cells, non-hematolymphoid cells, and debrisThese tests were dev eloped and their performance characteristics determined by [facility]. They have not been cleared or approved by the U.S. Food and Drug Administration. The FDA has determined that such clearance or approval is not necessary. It should not be regarded as investigational or for research. This laboratory is certified under the Clinical Laboratory Improvement Amendments of 1988 ("CLIA") as qualif ied to perform high-complexity clinical testing.[facility] , Department of Pathology, [address] [place] [address], [facility], [facility], [address] [place], [place] [address], [id number] 05:58:00* Test Item Value Reference Range Interpretation Comments MAGNESIUM (BEAKER) (test code = 627) 2.2 mg/dL 1.6-2.6 Compotype Operator ID - PIAYA LBASIC METABOLIC [id number] 05:58:00* Test Item Value Reference Range Interpretation Comments SODIUM (BEAKER) (test code = 381) 139 meq/L 136-145 POTASSIUM (BEAKER) (test code = 379) 4.2 meq/L 3.5-5.1 CHLORIDE (BEAKER) (test code = 382) 108 meq/L 98-107 H CO2 (BEAKER) (test code = 355) 28 meq/L 22-29 BLOOD UREA NITROGEN (BEAKER) (test code = 354) 12 mg/dL 7-21 CREATININE (BEAKER) (test code = 358) 0.58 mg/dL 0.57-1.25 GLUCOSE RANDOM (BEAKER) (test code = 652) 93 mg/dL 70-105 CALCIUM (BEAKER) (test code = 697) 8.2 mg/dL 8.4-10.2 L EGFR (BEAKER) (test code = 1092) 106 mL/min/1.73 sq m ESTIMATED GFR IS NOT ACCURATE CREATININE CLEARANCE IN PREDICTING GLOMERULAR FILTRATION RATE. ESTIMATED GFR IS NOT APPLICABLE FOR DIALYSIS PATIENTS. Compotype Operator ID - PIAYA LBONE MARROW PROCESS.2019-10-23 16:37:00* Test Item Value Reference Range Interpretation Comments ANATOMIC CASE# (BEAKER) (test code = 2470) [id number] ORDERED BY DOCTOR# (BEAKER) (test code = 2457) RENZO PERFORMED BY DOCTOR# (BEAKER) (test code = 2458) RENZO CLOT RECEIVED? (BEAKER) (test code = 2459) Yes BIOPSY RECEIVED? (BEAKER) (test code = 2460) Yes CULTURE RECEIVED? (BEAKER) (test code = 2464) No FLOW RECEIVED? (BEAKER) (test code = 2461) Yes CYTOGENICS? (BEAKER) (test code = 2462) No QNS MOLECULAR GENETICS? (BEAKER) (test code = 2463) Yes AML/MDS post-inductionCBC W/PLT COUNT & AUTO [id number] 10:30:00* Test Item Value Reference Range Interpretation Comments WHITE BLOOD CELL COUNT (BEAKER) (test code = 775) 0.3 K/ L 3.5- 10.5 LL RED BLOOD CELL COUNT (BEAKER) (test code = 761) 2.78 M/ L 3.93-5 .22 L HEMOGLOBIN (BEAKER) (test code = 410) 8.1 GM/DL 11.2-15.7 L HEMATOCRIT (BEAKER) (test code = 411) 23.9 % 34.1-44.9 L MEAN CORPUSCULAR VOLUME (BEAKER) (test code = 753) 86.0 fL 79. 4-94.8 MEAN CORPUSCULAR HEMOGLOBIN (BEAKER) (test code = 751) 29.1 pg 25.6-32.2 MEAN CORPUSCULAR HEMOGLOBIN CONC (BEAKER) (test code = 752) 33.9 GM/DL 32.2-35.5 RED CELL DISTRIBUTION WIDTH (BEAKER) (test code = 412) 16.7 % 11.7-14.4 H PLATELET COUNT (BEAKER) (test code = 756) 19 K/CU MM 150-450 L MEAN PLATELET VOLUME (BEAKER) (test code = 754) 12.1 fL 9.4-12 .3 NUCLEATED RED BLOOD CELLS (BEAKER) (test code = 413) 12 /100 WBC 0 -0 H (CELLAVISION MANUAL DIFF)2019-10-23 10:30:00* Test Item Value Reference Range Interpretation Comments NEUTROPHILS - REL (CELLAVISION)(BEAKER) (test code = 2816) 10 % LYMPHOCYTES - REL (CELLAVISION)(BEAKER) (test code = 2817) 75 % MONOCYTES - REL (CELLAVISION)(BEAKER) (test code = 2818) 4 % EOSINOPHILS - REL (CELLAVISION)(BEAKER) (test code = 2819) 1 % METAMYELOCYTES - REL (CELLAVISION)(BEAKER) (test code = 2821) 1 % 0-0 H ATYPICAL LYMPHOCYTES - REL (CELLAVISION)(BEAKER) (test code = 2829) 5 % 0-0 H NEUTROPHILS - ABS (CELLAVISION)(BEAKER) (test code = 2830) 0.03 K/ul 1.56-6.13 L LYMPHOCYTES - ABS (CELLAVISION)(BEAKER) (test code = 2831) 0.23 K/ul 1.18-3.74 L MONOCYTES - ABS (CELLAVISION)(BEAKER) (test code = 2832) 0.01 K/uL 0.24-0.36 L EOSINOPHILS - ABS (CELLAVISION)(BEAKER) (test code = 2834) 0.00 K/uL 0.04-0.36 L METAMYELOCYTES - ABS (CELLAVISION)(BEAKER) (test code = 2836 ) 0.00 K/uL 0.00-0.00 ATYPICAL LYMPHOCYTES - ABS (CELLAVISION)(BEAKER) (test code = 4318) 0.02 K/uL 0.00-0.00 H TOTAL COUNTED (BEAKER) (test code = 1351) 100 MANUAL NRBC PER 100 CELLS (BEAKER) (test code = 1353) 20 /100 WBC 0-0 H WBC MORPHOLOGY (BEAKER) (test code = 487) Normal PLT MORPHOLOGY (BEAKER) (test code = 486) Normal POLYCHROMATOPHILLIC RBCS(BEAKER) (test code = 478) 1+ few ANISOCYTOSIS (BEAKER) (test code = 961) 1+ few PLATELET CONCENTRATION (CELLAVISION)(BEAKER) (test code = 3438) Dec reased Compotype Operator ID - [id number] ID - Palak Ositoamrita comments: Slide comments: WBC: Cell d ifferential was performed on buffy coat smear.[id number] 06:59:00* Test Item Value Reference Range Interpretation Comments MAGNESIUM (BEAKER) (test code = 627) 2.0 mg/dL 1.6-2.6 Compotype Operator ID - LABASIC METABOLIC [id number] 06:59:00* Test Item Value Reference Range Interpretation Comments SODIUM (BEAKER) (test code = 381) 138 meq/L 136-145 POTASSIUM (BEAKER) (test code = 379) 4.1 meq/L 3.5-5.1 CHLORIDE (BEAKER) (test code = 382) 110 meq/L 98-107 H CO2 (BEAKER) (test code = 355) 25 meq/L 22-29 BLOOD UREA NITROGEN (BEAKER) (test code = 354) 12 mg/dL 7-21 CREATININE (BEAKER) (test code = 358) 0.63 mg/dL 0.57-1.25 GLUCOSE RANDOM (BEAKER) (test code = 652) 99 mg/dL 70-105 CALCIUM (BEAKER) (test code = 697) 8.1 mg/dL 8.4-10.2 L EGFR (BEAKER) (test code = 1092) 96 mL/min/1.73 sq m ESTIMATED GFR IS NOT ACCURATE CREATININE CLEARANCE IN PREDICTING GLOMERULAR FILTRATION RATE. ESTIMATED GFR IS NOT APPLICABLE FOR DIALYSIS PATIENTS. Compotype Operator ID - CAROLINE, CHEST, 1 VIEW, NON [id number] 20:54:00Reason for exam:- >feverFINAL REPORT History: Fever. Comparison: 10/10/2019 Findings: A single view of the chest is submitted. The cardiac silhouette is within normal limits for size. There is atherosclerotic calcification of the ectatic aorta. There is no focal consolidation, pneumothorax, large pleural effusion or evidence of overt pulmonary edema. A right PICC line tip is stable in position, overlying the junction of the innominate vein and SVC. There is no acute bony abnormality. Impression: No acute abnormality. Signed: Yesy De Leon MDReport Verified Date/Time: 10/22/2019 20:54:32 W/PLT COUNT & AUTO [id number] 10:36:00* Test Item Value Reference Range Interpretation Comments WHITE BLOOD CELL COUNT (BEAKER) (test code = 775) 0.2 K/ L 3.5- 10.5 LL RED BLOOD CELL COUNT (BEAKER) (test code = 761) 2.73 M/ L 3.93-5 .22 L HEMOGLOBIN (BEAKER) (test code = 410) 8.1 GM/DL 11.2-15.7 L HEMATOCRIT (BEAKER) (test code = 411) 23.8 % 34.1-44.9 L MEAN CORPUSCULAR VOLUME (BEAKER) (test code = 753) 87.2 fL 79. 4-94.8 MEAN CORPUSCULAR HEMOGLOBIN (BEAKER) (test code = 751) 29.7 pg 25.6-32.2 MEAN CORPUSCULAR HEMOGLOBIN CONC (BEAKER) (test code = 752) 34.0 GM/DL 32.2-35.5 RED CELL DISTRIBUTION WIDTH (BEAKER) (test code = 412) 16.6 % 11.7-14.4 H PLATELET COUNT (BEAKER) (test code = 756) 29 K/CU MM 150-450 L MEAN PLATELET VOLUME (BEAKER) (test code = 754) 13.2 fL 9.4-12 .3 H NUCLEATED RED BLOOD CELLS (BEAKER) (test code = 413) 10 /100 WBC 0 -0 H (CELLAVISION MANUAL DIFF)2019-10-22 10:36:00* Test Item Value Reference Range Interpretation Comments NEUTROPHILS - REL (CELLAVISION)(BEAKER) (test code = 2816) 5 % LYMPHOCYTES - REL (CELLAVISION)(BEAKER) (test code = 2817) 86 % MONOCYTES - REL (CELLAVISION)(BEAKER) (test code = 2818) 3 % BANDS - REL (CELLAVISION)(BEAKER) (test code = 2826) 3 % 0 -10 ATYPICAL LYMPHOCYTES - REL (CELLAVISION)(BEAKER) (test code = 2829) 4 % 0-0 H NEUTROPHILS - ABS (CELLAVISION)(BEAKER) (test code = 2830) 0.01 K/ul 1.56-6.13 L LYMPHOCYTES - ABS (CELLAVISION)(BEAKER) (test code = 2831) 0.17 K/ul 1.18-3.74 L MONOCYTES - ABS (CELLAVISION)(BEAKER) (test code = 2832) 0.01 K/uL 0.24-0.36 L BANDS - ABS (CELLAVISION)(BEAKER) (test code = 2840) 0.01 K/uL 0 .00-0.80 ATYPICAL LYMPHOCYTES - ABS (CELLAVISION)(BEAKER) (test code = 2858) 0.01 K/uL 0.00-0.00 H TOTAL COUNTED (BEAKER) (test code = 1351) 100 MANUAL NRBC PER 100 CELLS (BEAKER) (test code = 1353) 3 /100 WBC 0-0 H WBC MORPHOLOGY (BEAKER) (test code = 487) Normal PLT MORPHOLOGY (BEAKER) (test code = 486) Normal POLYCHROMATOPHILLIC RBCS(BEAKER) (test code = 478) 1+ few ANISOCYTOSIS (BEAKER) (test code = 961) 1+ few PLATELET CONCENTRATION (CELLAVISION)(BEAKER) (test code = 3438) Dec reased Compotype Operator ID - [id number] ID - Palak Engle comments: Slide comments: WBC: Cell d ifferential was performed on buffy coat smear.[id number] 06:51:00* Test Item Value Reference Range Interpretation Comments MAGNESIUM (BEAKER) (test code = 627) 2.2 mg/dL 1.6-2.6 Compotype Operator HUNG CORDERO MBASIC METABOLIC [id number] 06:51:00* Test Item Value Reference Range Interpretation Comments SODIUM (BEAKER) (test code = 381) 139 meq/L 136-145 POTASSIUM (BEAKER) (test code = 379) 3.9 meq/L 3.5-5.1 CHLORIDE (BEAKER) (test code = 382) 109 meq/L 98-107 H CO2 (BEAKER) (test code = 355) 25 meq/L 22-29 BLOOD UREA NITROGEN (BEAKER) (test code = 354) 14 mg/dL 7-21 CREATININE (BEAKER) (test code = 358) 0.56 mg/dL 0.57-1.25 L GLUCOSE RANDOM (BEAKER) (test code = 652) 86 mg/dL 70-105 CALCIUM (BEAKER) (test code = 697) 8.1 mg/dL 8.4-10.2 L EGFR (BEAKER) (test code = 1092) 110 mL/min/1.73 sq m ESTIMATED GFR IS NOT ACCURATE CREATININE CLEARANCE IN PREDICTING GLOMERULAR FILTRATION RATE. ESTIMATED GFR IS NOT APPLICABLE FOR DIALYSIS PATIENTS. Compotype Operator HUNG CORDERO MCBC W/PLT COUNT & AUTO [id number] 13:06:00* Test Item Value Reference Range Interpretation Comments WHITE BLOOD CELL COUNT (BEAKER) (test code = 775) 0.2 K/ L 3.5- 10.5 LL RED BLOOD CELL COUNT (BEAKER) (test code = 761) 2.80 M/ L 3.93-5 .22 L HEMOGLOBIN (BEAKER) (test code = 410) 8.1 GM/DL 11.2-15.7 L HEMATOCRIT (BEAKER) (test code = 411) 24.5 % 34.1-44.9 L MEAN CORPUSCULAR VOLUME (BEAKER) (test code = 753) 87.5 fL 79. 4-94.8 MEAN CORPUSCULAR HEMOGLOBIN (BEAKER) (test code = 751) 28.9 pg 25.6-32.2 MEAN CORPUSCULAR HEMOGLOBIN CONC (BEAKER) (test code = 752) 33.1 GM/DL 32.2-35.5 RED CELL DISTRIBUTION WIDTH (BEAKER) (test code = 412) 16.4 % 11.7-14.4 H PLATELET COUNT (BEAKER) (test code = 756) 33 K/CU MM 150-450 L MEAN PLATELET VOLUME (BEAKER) (test code = 754) 11.3 fL 9.4-12 .3 NUCLEATED RED BLOOD CELLS (BEAKER) (test code = 413) 11 /100 WBC 0 -0 H (MANUAL DIFFERENTIAL)2019-10-21 13:06:00* Test Item Value Reference Range Interpretation Comments NEUTROPHILS - REL (DIFF) (BEAKER) (test code = 1359) 5 % LYMPHOCYTES - REL (DIFF) (BEAKER) (test code = 1360) 74 % MONOCYTES - REL (DIFF) (BEAKER) (test code = 1361) 3 % EOSINOPHILS - REL (DIFF) (BEAKER) (test code = 1362) 2 % BASOPHILS - REL (DIFF) (BEAKER) (test code = 1363) 0 % BANDS - REL (DIFF) (BEAKER) (test code = 1348) 2 % 0-10 ATYPICAL LYMPHOCYTE - REL (DIFF) (BEAKER) (test code = 260) 14 % 0-0 H NEUTROPHILS - ABS (DIFF) (BEAKER) (test code = 1365) 0.01 K/ L 1 .80-8.00 L LYMPHOCYTES - ABS (DIFF) (BEAKER) (test code = 1366) 0.15 K/ L 1 .48-4.50 L MONOCYTES - ABS (DIFF) (BEAKER) (test code = 1367) 0.01 K/ L 0.0 0-1.30 EOSINOPHILS - ABS (DIFF) (BEAKER) (test code = 1368) 0.00 K/ L 0 .00-0.50 BASOPHILS - ABS (DIFF) (BEAKER) (test code = 1369) 0.00 K/ L 0.0 0-0.20 BANDS-ABS (DIFF) (BEAKER) (test code = 1349) 0.0 K/ L 0.0-0.8 ATYPICAL LYMPHOCYTES - ABS (DIFF) (BEAKER) (test code = 263) 0.03 K/ L 0.00-0.00 H TOTAL COUNTED (BEAKER) (test code = 1351) 100 BANDS + SEGMENTED NEUTROPHILS (BEAKER) (test code = 1352) 0.01 MANUAL NRBC PER 100 CELLS (BEAKER) (test code = 1353) 6 /100 WBC 0-0 H WBC MORPHOLOGY (BEAKER) (test code = 487) Normal PLT MORPHOLOGY (BEAKER) (test code = 486) Normal ANISOCYTOSIS (BEAKER) (test code = 961) 1+ few [id number] 05:56:00* Test Item Value Reference Range Interpretation Comments MAGNESIUM (BEAKER) (test code = 627) 2.1 mg/dL 1.6-2.6 [employer] Operator ID - CONSUELO MBASIC METABOLIC [id number] 05:56:00* Test Item Value Reference Range Interpretation Comments SODIUM (BEAKER) (test code = 381) 138 meq/L 136-145 POTASSIUM (BEAKER) (test code = 379) 4.1 meq/L 3.5-5.1 CHLORIDE (BEAKER) (test code = 382) 109 meq/L 98-107 H CO2 (BEAKER) (test code = 355) 25 meq/L 22-29 BLOOD UREA NITROGEN (BEAKER) (test code = 354) 14 mg/dL 7-21 CREATININE (BEAKER) (test code = 358) 0.58 mg/dL 0.57-1.25 GLUCOSE RANDOM (BEAKER) (test code = 652) 94 mg/dL 70-105 CALCIUM (BEAKER) (test code = 697) 8.3 mg/dL 8.4-10.2 L EGFR (BEAKER) (test code = 1092) 106 mL/min/1.73 sq m ESTIMATED GFR IS NOT ACCURATE CREATININE CLEARANCE IN PREDICTING GLOMERULAR FILTRATION RATE. ESTIMATED GFR IS NOT APPLICABLE FOR DIALYSIS PATIENTS. Compotype Operator ID - CONSUELO MCBC W/PLT COUNT & AUTO [id number] 10:18:00* Test Item Value Reference Range Interpretation Comments WHITE BLOOD CELL COUNT (BEAKER) (test code = 775) 0.2 K/ L 3.5- 10.5 LL RED BLOOD CELL COUNT (BEAKER) (test code = 761) 2.30 M/ L 3.93-5 .22 L HEMOGLOBIN (BEAKER) (test code = 410) 6.4 GM/DL 11.2-15.7 L HEMATOCRIT (BEAKER) (test code = 411) 19.4 % 34.1-44.9 L MEAN CORPUSCULAR VOLUME (BEAKER) (test code = 753) 84.3 fL 79. 4-94.8 MEAN CORPUSCULAR HEMOGLOBIN (BEAKER) (test code = 751) 27.8 pg 25.6-32.2 MEAN CORPUSCULAR HEMOGLOBIN CONC (BEAKER) (test code = 752) 33.0 GM/DL 32.2-35.5 RED CELL DISTRIBUTION WIDTH (BEAKER) (test code = 412) 14.8 % 11.7-14.4 H PLATELET COUNT (BEAKER) (test code = 756) 46 K/CU MM 150-450 L Verified by clinical historyDiscordant PLT results compared to previous results; clinical correlation required. MEAN PLATELET VOLUME (BEAKER) (test code = 754) 11.8 fL 9.4-12 .3 NUCLEATED RED BLOOD CELLS (BEAKER) (test code = 413) 0 /100 WBC 0 -0 (CELLAVISION MANUAL DIFF)2019-10-20 10:18:00* Test Item Value Reference Range Interpretation Comments NEUTROPHILS - REL (CELLAVISION)(BEAKER) (test code = 2816) 4 % LYMPHOCYTES - REL (CELLAVISION)(BEAKER) (test code = 2817) 92 % MONOCYTES - REL (CELLAVISION)(BEAKER) (test code = 2818) 4 % NEUTROPHILS - ABS (CELLAVISION)(BEAKER) (test code = 2830) 0.01 K/ul 1.56-6.13 L LYMPHOCYTES - ABS (CELLAVISION)(BEAKER) (test code = 2831) 0.18 K/ul 1.18-3.74 L MONOCYTES - ABS (CELLAVISION)(BEAKER) (test code = 2832) 0.01 K/uL 0.24-0.36 L TOTAL COUNTED (BEAKER) (test code = 1351) 100 RBC MORPHOLOGY (BEAKER) (test code = 762) Normal WBC MORPHOLOGY (BEAKER) (test code = 487) Normal PLT MORPHOLOGY (BEAKER) (test code = 486) Normal Compotype Operator ID - [id number] METABOLIC [id number] 06:04:00* Test Item Value Reference Range Interpretation Comments SODIUM (BEAKER) (test code = 381) 139 meq/L 136-145 POTASSIUM (BEAKER) (test code = 379) 3.9 meq/L 3.5-5.1 CHLORIDE (BEAKER) (test code = 382) 109 meq/L 98-107 H CO2 (BEAKER) (test code = 355) 26 meq/L 22-29 BLOOD UREA NITROGEN (BEAKER) (test code = 354) 10 mg/dL 7-21 CREATININE (BEAKER) (test code = 358) 0.57 mg/dL 0.57-1.25 GLUCOSE RANDOM (BEAKER) (test code = 652) 93 mg/dL 70-105 CALCIUM (BEAKER) (test code = 697) 8.0 mg/dL 8.4-10.2 L EGFR (BEAKER) (test code = 1092) 108 mL/min/1.73 sq m ESTIMATED GFR IS NOT ACCURATE CREATININE CLEARANCE IN PREDICTING GLOMERULAR FILTRATION RATE. ESTIMATED GFR IS NOT APPLICABLE FOR DIALYSIS PATIENTS. Compotype Operator ID - CONSUELO [id number] 05:48:00* Test Item Value Reference Range Interpretation Comments MAGNESIUM (BEAKER) (test code = 627) 2.3 mg/dL 1.6-2.6 Compotype Operator ID - CONSUELO MVANCOMYCIN LEVEL, [id number] 01:40:00* Test Item Value Reference Range Interpretation Comments VANCOMYCIN TROUGH (BEAKER) (test code = 522) 18.3 ug/mL 10.0-20.0 [facility] 2019-10-19 17:37:00* Test Item Value Reference Range Interpretation Comments Vitamin B12 (test code = 2132-9) 1087 pg/mL 213-816 H Folate (test code = 2284-8) 12.80 ng/mL >=7.00 KO (test code = KO) Vitamin B12= pg/mlReferenc e Range 200-1100 pg/ml Folate, Serum= ng/mlReference Range Low <3.4 Borderline 3.4- 5.4 Normal >5.4Performed by [facility] Interpretation (test code = 00865-3) [facility] [id number] 17:37:00* Test Item Value Reference Range Interpretation Comments VITAMIN B12 (BEAKER) (test code = 774) 1087 pg/mL 213-816 H FOLATE (BEAKER) (test code = 362) 12.80 ng/mL >=7.00 Vitamin B12= pg/mlReference Range 200-1100 pg/mlFolate, Serum= ng/mlReferenc e Range Low <3.4 Borderline 3.4-5.4 Normal >5.4[facility]formed by [facility] & AUTO [id number] 12:15:00* Test Item Value Reference Range Interpretation Comments WHITE BLOOD CELL COUNT (BEAKER) (test code = 775) 0.3 K/ L 3.5- 10.5 LL RED BLOOD CELL COUNT (BEAKER) (test code = 761) 2.62 M/ L 3.93-5 .22 L HEMOGLOBIN (BEAKER) (test code = 410) 7.4 GM/DL 11.2-15.7 L HEMATOCRIT (BEAKER) (test code = 411) 22.0 % 34.1-44.9 L MEAN CORPUSCULAR VOLUME (BEAKER) (test code = 753) 84.0 fL 79. 4-94.8 MEAN CORPUSCULAR HEMOGLOBIN (BEAKER) (test code = 751) 28.2 pg 25.6-32.2 MEAN CORPUSCULAR HEMOGLOBIN CONC (BEAKER) (test code = 752) 33.6 GM/DL 32.2-35.5 RED CELL DISTRIBUTION WIDTH (BEAKER) (test code = 412) 15.0 % 11.7-14.4 H PLATELET COUNT (BEAKER) (test code = 756) 11 K/CU MM 150-450 L MEAN PLATELET VOLUME (BEAKER) (test code = 754) 10.1 fL 9.4-12 .3 NUCLEATED RED BLOOD CELLS (BEAKER) (test code = 413) 0 /100 WBC 0 -0 (MANUAL DIFFERENTIAL)2019-10-19 12:15:00* Test Item Value Reference Range Interpretation Comments NEUTROPHILS - REL (DIFF) (BEAKER) (test code = 1359) 2 % LYMPHOCYTES - REL (DIFF) (BEAKER) (test code = 1360) 92 % MONOCYTES - REL (DIFF) (BEAKER) (test code = 1361) 3 % EOSINOPHILS - REL (DIFF) (BEAKER) (test code = 1362) 0 % BASOPHILS - REL (DIFF) (BEAKER) (test code = 1363) 0 % ATYPICAL LYMPHOCYTE - REL (DIFF) (BEAKER) (test code = 260) 3 % 0-0 H NEUTROPHILS - ABS (DIFF) (BEAKER) (test code = 1365) 0.01 K/ L 1 .80-8.00 L LYMPHOCYTES - ABS (DIFF) (BEAKER) (test code = 1366) 0.28 K/ L 1 .48-4.50 L MONOCYTES - ABS (DIFF) (BEAKER) (test code = 1367) 0.01 K/ L 0.0 0-1.30 EOSINOPHILS - ABS (DIFF) (BEAKER) (test code = 1368) 0.00 K/ L 0 .00-0.50 BASOPHILS - ABS (DIFF) (BEAKER) (test code = 1369) 0.00 K/ L 0.0 0-0.20 ATYPICAL LYMPHOCYTES - ABS (DIFF) (BEAKER) (test code = 263) 0.01 K/ L 0.00-0.00 H TOTAL COUNTED (BEAKER) (test code = 1351) 100 MANUAL NRBC PER 100 CELLS (BEAKER) (test code = 1353) 1 /100 WBC 0-0 H WBC MORPHOLOGY (BEAKER) (test code = 487) Normal PLT MORPHOLOGY (BEAKER) (test code = 486) Normal RBC MORPHOLOGY (BEAKER) (test code = 762) Normal [id number] 06:33:00* Test Item Value Reference Range Interpretation Comments MAGNESIUM (BEAKER) (test code = 627) 2.5 mg/dL 1.6-2.6 Compotype Operator ID - CONSUELO MBASIC METABOLIC [id number] 06:33:00* Test Item Value Reference Range Interpretation Comments SODIUM (BEAKER) (test code = 381) 138 meq/L 136-145 POTASSIUM (BEAKER) (test code = 379) 4.3 meq/L 3.5-5.1 CHLORIDE (BEAKER) (test code = 382) 107 meq/L 98-107 CO2 (BEAKER) (test code = 355) 27 meq/L 22-29 BLOOD UREA NITROGEN (BEAKER) (test code = 354) 10 mg/dL 7-21 CREATININE (BEAKER) (test code = 358) 0.62 mg/dL 0.57-1.25 GLUCOSE RANDOM (BEAKER) (test code = 652) 89 mg/dL 70-105 CALCIUM (BEAKER) (test code = 697) 8.5 mg/dL 8.4-10.2 EGFR (BEAKER) (test code = 1092) 98 mL/min/1.73 sq m ESTIMATED GFR IS NOT ACCURATE CREATININE CLEARANCE IN PREDICTING GLOMERULAR FILTRATION RATE. ESTIMATED GFR IS NOT APPLICABLE FOR DIALYSIS PATIENTS. Compotype Operator ID - CONSUELO [facility] W/PLT COUNT & AUTO [id number] 09:57:00* Test Item Value Reference Range Interpretation Comments WHITE BLOOD CELL COUNT (BEAKER) (test code = 775) 0.2 K/ L 3.5- 10.5 LL RED BLOOD CELL COUNT (BEAKER) (test code = 761) 2.61 M/ L 3.93-5 .22 L HEMOGLOBIN (BEAKER) (test code = 410) 7.1 GM/DL 11.2-15.7 L HEMATOCRIT (BEAKER) (test code = 411) 21.8 % 34.1-44.9 L MEAN CORPUSCULAR VOLUME (BEAKER) (test code = 753) 83.5 fL 79. 4-94.8 MEAN CORPUSCULAR HEMOGLOBIN (BEAKER) (test code = 751) 27.2 pg 25.6-32.2 MEAN CORPUSCULAR HEMOGLOBIN CONC (BEAKER) (test code = 752) 32.6 GM/DL 32.2-35.5 RED CELL DISTRIBUTION WIDTH (BEAKER) (test code = 412) 15.0 % 11.7-14.4 H PLATELET COUNT (BEAKER) (test code = 756) 18 K/CU MM 150-450 L MEAN PLATELET VOLUME (BEAKER) (test code = 754) 9.7 fL 9.4-12 .3 NUCLEATED RED BLOOD CELLS (BEAKER) (test code = 413) 0 /100 WBC 0 -0 (CELLAVISION MANUAL DIFF)2019-10-18 09:57:00* Test Item Value Reference Range Interpretation Comments NEUTROPHILS - REL (CELLAVISION)(BEAKER) (test code = 2816) 1 % LYMPHOCYTES - REL (CELLAVISION)(BEAKER) (test code = 2817) 91 % MONOCYTES - REL (CELLAVISION)(BEAKER) (test code = 2818) 2 % ATYPICAL LYMPHOCYTES - REL (CELLAVISION)(BEAKER) (test code = 2829) 6 % 0-0 H NEUTROPHILS - ABS (CELLAVISION)(BEAKER) (test code = 2830) 0.00 K/ul 1.56-6.13 L LYMPHOCYTES - ABS (CELLAVISION)(BEAKER) (test code = 2831) 0.18 K/ul 1.18-3.74 L MONOCYTES - ABS (CELLAVISION)(BEAKER) (test code = 2832) 0.00 K/uL 0.24-0.36 L ATYPICAL LYMPHOCYTES - ABS (CELLAVISION)(BEAKER) (test code = 2858) 0.01 K/uL 0.00-0.00 H TOTAL COUNTED (BEAKER) (test code = 1351) 100 WBC MORPHOLOGY (BEAKER) (test code = 487) Normal PLT MORPHOLOGY (BEAKER) (test code = 486) Normal POLYCHROMATOPHILLIC RBCS(BEAKER) (test code = 478) 1+ few PLATELET CONCENTRATION (CELLAVISION)(BEAKER) (test code = 3438) Dec reased Compotype Operator ID - [id number] ID - Nguyen Drake comments: Slide comments: [id number] 05:39:00* Test Item Value Reference Range Interpretation Comments MAGNESIUM (BEAKER) (test code = 627) 2.3 mg/dL 1.6-2.6 Compotype Operator ID - PIAYA LBASIC METABOLIC [id number] 05:39:00* Test Item Value Reference Range Interpretation Comments SODIUM (BEAKER) (test code = 381) 137 meq/L 136-145 POTASSIUM (BEAKER) (test code = 379) 4.0 meq/L 3.5-5.1 CHLORIDE (BEAKER) (test code = 382) 106 meq/L 98-107 CO2 (BEAKER) (test code = 355) 27 meq/L 22-29 BLOOD UREA NITROGEN (BEAKER) (test code = 354) 12 mg/dL 7-21 CREATININE (BEAKER) (test code = 358) 0.59 mg/dL 0.57-1.25 GLUCOSE RANDOM (BEAKER) (test code = 652) 91 mg/dL 70-105 CALCIUM (BEAKER) (test code = 697) 8.3 mg/dL 8.4-10.2 L EGFR (BEAKER) (test code = 1092) 104 mL/min/1.73 sq m ESTIMATED GFR IS NOT ACCURATE CREATININE CLEARANCE IN PREDICTING GLOMERULAR FILTRATION RATE. ESTIMATED GFR IS NOT APPLICABLE FOR DIALYSIS PATIENTS. Compotype Operator ID - PIAYA LCBC W/PLT COUNT & AUTO [id number] 09:31:00* Test Item Value Reference Range Interpretation Comments WHITE BLOOD CELL COUNT (BEAKER) (test code = 775) 0.2 K/ L 3.5- 10.5 LL RED BLOOD CELL COUNT (BEAKER) (test code = 761) 2.78 M/ L 3.93-5 .22 L HEMOGLOBIN (BEAKER) (test code = 410) 7.6 GM/DL 11.2-15.7 L HEMATOCRIT (BEAKER) (test code = 411) 23.7 % 34.1-44.9 L MEAN CORPUSCULAR VOLUME (BEAKER) (test code = 753) 85.3 fL 79. 4-94.8 MEAN CORPUSCULAR HEMOGLOBIN (BEAKER) (test code = 751) 27.3 pg 25.6-32.2 MEAN CORPUSCULAR HEMOGLOBIN CONC (BEAKER) (test code = 752) 32.1 GM/DL 32.2-35.5 L RED CELL DISTRIBUTION WIDTH (BEAKER) (test code = 412) 15.4 % 11.7-14.4 H PLATELET COUNT (BEAKER) (test code = 756) 27 K/CU MM 150-450 L MEAN PLATELET VOLUME (BEAKER) (test code = 754) 9.6 fL 9.4-12 .3 NUCLEATED RED BLOOD CELLS (BEAKER) (test code = 413) 0 /100 WBC 0 -0 (MANUAL DIFFERENTIAL)2019-10-17 09:31:00* Test Item Value Reference Range Interpretation Comments NEUTROPHILS - REL (DIFF) (BEAKER) (test code = 1359) 2 % LYMPHOCYTES - REL (DIFF) (BEAKER) (test code = 1360) 95 % MONOCYTES - REL (DIFF) (BEAKER) (test code = 1361) 0 % EOSINOPHILS - REL (DIFF) (BEAKER) (test code = 1362) 0 % BASOPHILS - REL (DIFF) (BEAKER) (test code = 1363) 0 % ATYPICAL LYMPHOCYTE - REL (DIFF) (BEAKER) (test code = 260) 3 % 0-0 H NEUTROPHILS - ABS (DIFF) (BEAKER) (test code = 1365) 0.00 K/ L 1 .80-8.00 L LYMPHOCYTES - ABS (DIFF) (BEAKER) (test code = 1366) 0.19 K/ L 1 .48-4.50 L MONOCYTES - ABS (DIFF) (BEAKER) (test code = 1367) 0.00 K/ L 0.0 0-1.30 EOSINOPHILS - ABS (DIFF) (BEAKER) (test code = 1368) 0.00 K/ L 0 .00-0.50 BASOPHILS - ABS (DIFF) (BEAKER) (test code = 1369) 0.00 K/ L 0.0 0-0.20 ATYPICAL LYMPHOCYTES - ABS (DIFF) (BEAKER) (test code = 263) 0.01 K/ L 0.00-0.00 H TOTAL COUNTED (BEAKER) (test code = 1351) 100 WBC MORPHOLOGY (BEAKER) (test code = 487) Normal PLT MORPHOLOGY (BEAKER) (test code = 486) Normal RBC MORPHOLOGY (BEAKER) (test code = 762) Normal [id number] 05:08:00* Test Item Value Reference Range Interpretation Comments MAGNESIUM (BEAKER) (test code = 627) 2.3 mg/dL 1.6-2.6 Compotype Operator HUNG - CONSUELO MBASIC METABOLIC [id number] 05:08:00* Test Item Value Reference Range Interpretation Comments SODIUM (BEAKER) (test code = 381) 138 meq/L 136-145 POTASSIUM (BEAKER) (test code = 379) 3.7 meq/L 3.5-5.1 CHLORIDE (BEAKER) (test code = 382) 106 meq/L 98-107 CO2 (BEAKER) (test code = 355) 26 meq/L 22-29 BLOOD UREA NITROGEN (BEAKER) (test code = 354) 10 mg/dL 7-21 CREATININE (BEAKER) (test code = 358) 0.60 mg/dL 0.57-1.25 GLUCOSE RANDOM (BEAKER) (test code = 652) 99 mg/dL 70-105 CALCIUM (BEAKER) (test code = 697) 8.3 mg/dL 8.4-10.2 L EGFR (BEAKER) (test code = 1092) 102 mL/min/1.73 sq m ESTIMATED GFR IS NOT ACCURATE CREATININE CLEARANCE IN PREDICTING GLOMERULAR FILTRATION RATE. ESTIMATED GFR IS NOT APPLICABLE FOR DIALYSIS PATIENTS. Compotype Operator ID - CONSUELO MCBC W/PLT COUNT & AUTO [id number] 09:45:00* Test Item Value Reference Range Interpretation Comments WHITE BLOOD CELL COUNT (BEAKER) (test code = 775) 0.2 K/ L 3.5- 10.5 LL RED BLOOD CELL COUNT (BEAKER) (test code = 761) 2.80 M/ L 3.93-5 .22 L HEMOGLOBIN (BEAKER) (test code = 410) 7.7 GM/DL 11.2-15.7 L HEMATOCRIT (BEAKER) (test code = 411) 23.5 % 34.1-44.9 L MEAN CORPUSCULAR VOLUME (BEAKER) (test code = 753) 83.9 fL 79. 4-94.8 MEAN CORPUSCULAR HEMOGLOBIN (BEAKER) (test code = 751) 27.5 pg 25.6-32.2 MEAN CORPUSCULAR HEMOGLOBIN CONC (BEAKER) (test code = 752) 32.8 GM/DL 32.2-35.5 RED CELL DISTRIBUTION WIDTH (BEAKER) (test code = 412) 15.6 % 11.7-14.4 H PLATELET COUNT (BEAKER) (test code = 756) 47 K/CU MM 150-450 L Discordant PLT result compared to previous result; clinical correlation required MEAN PLATELET VOLUME (BEAKER) (test code = 754) 10.0 fL 9.4-12 .3 NUCLEATED RED BLOOD CELLS (BEAKER) (test code = 413) 0 /100 WBC 0 -0 (MANUAL DIFFERENTIAL)2019-10-16 09:45:00* Test Item Value Reference Range Interpretation Comments NEUTROPHILS - REL (DIFF) (BEAKER) (test code = 1359) 6 % LYMPHOCYTES - REL (DIFF) (BEAKER) (test code = 1360) 85 % MONOCYTES - REL (DIFF) (BEAKER) (test code = 1361) 4 % EOSINOPHILS - REL (DIFF) (BEAKER) (test code = 1362) 0 % BASOPHILS - REL (DIFF) (BEAKER) (test code = 1363) 0 % ATYPICAL LYMPHOCYTE - REL (DIFF) (BEAKER) (test code = 260) 5 % 0-0 H NEUTROPHILS - ABS (DIFF) (BEAKER) (test code = 1365) 0.01 K/ L 1 .80-8.00 L LYMPHOCYTES - ABS (DIFF) (BEAKER) (test code = 1366) 0.17 K/ L 1 .48-4.50 L MONOCYTES - ABS (DIFF) (BEAKER) (test code = 1367) 0.01 K/ L 0.0 0-1.30 EOSINOPHILS - ABS (DIFF) (BEAKER) (test code = 1368) 0.00 K/ L 0 .00-0.50 BASOPHILS - ABS (DIFF) (BEAKER) (test code = 1369) 0.00 K/ L 0.0 0-0.20 ATYPICAL LYMPHOCYTES - ABS (DIFF) (BEAKER) (test code = 263) 0.01 K/ L 0.00-0.00 H TOTAL COUNTED (BEAKER) (test code = 1351) 100 WBC MORPHOLOGY (BEAKER) (test code = 487) Normal PLT MORPHOLOGY (BEAKER) (test code = 486) Normal OVALOCYTES (BEAKER) (test code = 477) 1+ few [id number] 07:15:00* Test Item Value Reference Range Interpretation Comments MAGNESIUM (BEAKER) (test code = 627) 2.3 mg/dL 1.6-2.6 Compotype Operator ID - CONSUELO MBASIC METABOLIC [id number] 07:15:00* Test Item Value Reference Range Interpretation Comments SODIUM (BEAKER) (test code = 381) 137 meq/L 136-145 POTASSIUM (BEAKER) (test code = 379) 3.9 meq/L 3.5-5.1 CHLORIDE (BEAKER) (test code = 382) 105 meq/L 98-107 CO2 (BEAKER) (test code = 355) 25 meq/L 22-29 BLOOD UREA NITROGEN (BEAKER) (test code = 354) 10 mg/dL 7-21 CREATININE (BEAKER) (test code = 358) 0.57 mg/dL 0.57-1.25 GLUCOSE RANDOM (BEAKER) (test code = 652) 92 mg/dL 70-105 CALCIUM (BEAKER) (test code = 697) 8.1 mg/dL 8.4-10.2 L EGFR (BEAKER) (test code = 1092) 108 mL/min/1.73 sq m ESTIMATED GFR IS NOT ACCURATE CREATININE CLEARANCE IN PREDICTING GLOMERULAR FILTRATION RATE. ESTIMATED GFR IS NOT APPLICABLE FOR DIALYSIS PATIENTS. Compotype Operator ID - CONSUELO MVANCOMYCIN LEVEL, [id number] 18:11:00* Test Item Value Reference Range Interpretation Comments VANCOMYCIN TROUGH (DEBBIE) (test code = 522) 11.7 ug/mL 10.0-20.0 Compotype Operator ID - BSCMV PCR, [id number] 14:29:00* Test Item Value Reference Range Interpretation Comments CMV VIRAL LOAD - NEGATIVE (DEBBIE) (test code = 2558) Negative or below the linear range of the assay (<375 copies/mL) <375- >375,000 copies/mL Cytomegalovirus (CMV) infection can cause significant disease in immunosuppresse d patients. However, it is common for CMV to manifest as a limited infection whi ch is of no clinical significance in immunosuppressed patients or in healthy ind ividuals.Viral load measurements are helpful to identify clinical CMV infection and to guide the pre-emptive management of antiviral therapy. For treatment of CMV infection due to reactivation in transplant recipients, a threshold between 4,000 and 5,000 copies/mL is suggested. For treatment of primary CMV infection, a lower threshold can be used.CMV infection may also be monitored using weekly serial measurements. Serial measurements of CMV DNA viral load can be evaluated by identifying a 10-fold change, as well as assessing the CMV DNA viral load and the clinical context for each patient.The plasma CMV DNA viral load was detecte d using quantitative polymerase chain reaction and fluorescent monitoring of a s pecific hybridized probe. Genetic variation and other factors can affect the acc uracy of nucleic acid testing. Therefore, the results should be interpreted in l ight of clinical data. A negative result may not exclude the presence of CMV dis ease.This test was developed and its performance characteristics determined by [facility] Pathology Department, Section of Molecular Patholog y. It has not been cleared or approved by the U.S. Food and Drug Administration (FDA), since FDA approval is not required for clinical use of the test. Validati on was done as required by The Clinical Laboratory Improvement Amendments of 198 8.CBC W/PLT COUNT & AUTO [id number] 09:56:00* Test Item Value Reference Range Interpretation Comments WHITE BLOOD CELL COUNT (BEAKER) (test code = 775) 0.2 K/ L 3.5- 10.5 LL RED BLOOD CELL COUNT (BEAKER) (test code = 761) 2.91 M/ L 3.93-5 .22 L HEMOGLOBIN (BEAKER) (test code = 410) 8.2 GM/DL 11.2-15.7 L HEMATOCRIT (BEAKER) (test code = 411) 24.6 % 34.1-44.9 L MEAN CORPUSCULAR VOLUME (BEAKER) (test code = 753) 84.5 fL 79. 4-94.8 MEAN CORPUSCULAR HEMOGLOBIN (BEAKER) (test code = 751) 28.2 pg 25.6-32.2 MEAN CORPUSCULAR HEMOGLOBIN CONC (BEAKER) (test code = 752) 33.3 GM/DL 32.2-35.5 RED CELL DISTRIBUTION WIDTH (BEAKER) (test code = 412) 15.8 % 11.7-14.4 H PLATELET COUNT (BEAKER) (test code = 756) 13 K/CU MM 150-450 L Discordant PLT result compared to previous result; clinical correlation required. MEAN PLATELET VOLUME (BEAKER) (test code = 754) 12.2 fL 9.4-12 .3 NUCLEATED RED BLOOD CELLS (BEAKER) (test code = 413) 0 /100 WBC 0 -0 (CELLAVISION MANUAL DIFF)2019-10-15 09:56:00* Test Item Value Reference Range Interpretation Comments NEUTROPHILS - REL (CELLAVISION)(BEAKER) (test code = 2816) 5 % LYMPHOCYTES - REL (CELLAVISION)(BEAKER) (test code = 2817) 93 % MONOCYTES - REL (CELLAVISION)(BEAKER) (test code = 2818) 1 % ATYPICAL LYMPHOCYTES - REL (CELLAVISION)(BEAKER) (test code = 2829) 1 % 0-0 H NEUTROPHILS - ABS (CELLAVISION)(BEAKER) (test code = 2830) 0.01 K/ul 1.56-6.13 L LYMPHOCYTES - ABS (CELLAVISION)(BEAKER) (test code = 2831) 0.19 K/ul 1.18-3.74 L MONOCYTES - ABS (CELLAVISION)(BEAKER) (test code = 2832) 0.00 K/uL 0.24-0.36 L ATYPICAL LYMPHOCYTES - ABS (CELLAVISION)(BEAKER) (test code = 2858) 0.00 K/uL 0.00-0.00 TOTAL COUNTED (BEAKER) (test code = 1351) 100 WBC MORPHOLOGY (BEAKER) (test code = 487) Normal PLT MORPHOLOGY (BEAKER) (test code = 486) Normal ANISOCYTOSIS (BEAKER) (test code = 961) 1+ few PLATELET CONCENTRATION (CELLAVISION)(BEAKER) (test code = 3438) Dec reased Compotype Operator ID - [id number] ID - Palak Engle comments: Slide comments: WBC: Cell d ifferential was performed on buffy coat smearBLOOD [id number] 09:00:00* Test Item Value Reference Range Interpretation Comments CULTURE (BEAKER) (test code = 1095) No growth in 5 days [id number] 08:51:00* Test Item Value Reference Range Interpretation Comments MAGNESIUM (BEAKER) (test code = 627) 2.5 mg/dL 1.6-2.6 Compotype Operator ID - AIXA FBASIC METABOLIC [id number] 08:51:00* Test Item Value Reference Range Interpretation Comments SODIUM (BEAKER) (test code = 381) 136 meq/L 136-145 POTASSIUM (BEAKER) (test code = 379) 4.0 meq/L 3.5-5.1 CHLORIDE (BEAKER) (test code = 382) 104 meq/L 98-107 CO2 (BEAKER) (test code = 355) 28 meq/L 22-29 BLOOD UREA NITROGEN (BEAKER) (test code = 354) 10 mg/dL 7-21 CREATININE (BEAKER) (test code = 358) 0.61 mg/dL 0.57-1.25 GLUCOSE RANDOM (BEAKER) (test code = 652) 96 mg/dL 70-105 CALCIUM (BEAKER) (test code = 697) 8.4 mg/dL 8.4-10.2 EGFR (BEAKER) (test code = 1092) 100 mL/min/1.73 sq m ESTIMATED GFR IS NOT ACCURATE CREATININE CLEARANCE IN PREDICTING GLOMERULAR FILTRATION RATE. ESTIMATED GFR IS NOT APPLICABLE FOR DIALYSIS PATIENTS. Compotype Operator ID - AIXA FCBC W/PLT COUNT & AUTO [id number] 12:24:00* Test Item Value Reference Range Interpretation Comments WHITE BLOOD CELL COUNT (BEAKER) (test code = 775) 0.2 K/ L 3.5- 10.5 LL RED BLOOD CELL COUNT (BEAKER) (test code = 761) 3.01 M/ L 3.93-5 .22 L HEMOGLOBIN (BEAKER) (test code = 410) 8.2 GM/DL 11.2-15.7 L HEMATOCRIT (BEAKER) (test code = 411) 25.6 % 34.1-44.9 L MEAN CORPUSCULAR VOLUME (BEAKER) (test code = 753) 85.0 fL 79. 4-94.8 MEAN CORPUSCULAR HEMOGLOBIN (BEAKER) (test code = 751) 27.2 pg 25.6-32.2 MEAN CORPUSCULAR HEMOGLOBIN CONC (BEAKER) (test code = 752) 32.0 GM/DL 32.2-35.5 L RED CELL DISTRIBUTION WIDTH (BEAKER) (test code = 412) 16.2 % 11.7-14.4 H PLATELET COUNT (BEAKER) (test code = 756) 32 K/CU MM 150-450 L Discordant PLT result compared to previous result; clinical correlation required. MEAN PLATELET VOLUME (BEAKER) (test code = 754) 10.6 fL 9.4-12 .3 NUCLEATED RED BLOOD CELLS (BEAKER) (test code = 413) 0 /100 WBC 0 -0 (CELLAVISION MANUAL DIFF)2019-10-14 12:24:00* Test Item Value Reference Range Interpretation Comments NEUTROPHILS - REL (CELLAVISION)(BEAKER) (test code = 2816) 8 % LYMPHOCYTES - REL (CELLAVISION)(BEAKER) (test code = 2817) 91 % BANDS - REL (CELLAVISION)(BEAKER) (test code = 2826) 1 % 0 -10 NEUTROPHILS - ABS (CELLAVISION)(BEAKER) (test code = 2830) 0.02 K/ul 1.56-6.13 L LYMPHOCYTES - ABS (CELLAVISION)(BEAKER) (test code = 2831) 0.18 K/ul 1.18-3.74 L BANDS - ABS (CELLAVISION)(BEAKER) (test code = 2840) 0.00 K/uL 0 .00-0.80 TOTAL COUNTED (BEAKER) (test code = 1351) 100 WBC MORPHOLOGY (BEAKER) (test code = 487) Normal PLT MORPHOLOGY (BEAKER) (test code = 486) Normal HYPOCHROMIA (BEAKER) (test code = 963) 1+ few ANISOCYTOSIS (BEAKER) (test code = 961) 1+ few Manual diff performed on buffy [id number] 06:38:00* Test Item Value Reference Range Interpretation Comments MAGNESIUM (BEAKER) (test code = 627) 2.1 mg/dL 1.6-2.6 Compotype Operator ID - WU AMBRIZASIC METABOLIC [id number] 06:38:00* Test Item Value Reference Range Interpretation Comments SODIUM (BEAKER) (test code = 381) 137 meq/L 136-145 POTASSIUM (BEAKER) (test code = 379) 3.7 meq/L 3.5-5.1 CHLORIDE (BEAKER) (test code = 382) 106 meq/L 98-107 CO2 (BEAKER) (test code = 355) 24 meq/L 22-29 BLOOD UREA NITROGEN (BEAKER) (test code = 354) 9 mg/dL 7-21 CREATININE (BEAKER) (test code = 358) 0.62 mg/dL 0.57-1.25 GLUCOSE RANDOM (BEAKER) (test code = 652) 115 mg/dL 70-105 H CALCIUM (BEAKER) (test code = 697) 8.1 mg/dL 8.4-10.2 L EGFR (BEAKER) (test code = 1092) 98 mL/min/1.73 sq m ESTIMATED GFR IS NOT ACCURATE CREATININE CLEARANCE IN PREDICTING GLOMERULAR FILTRATION RATE. ESTIMATED GFR IS NOT APPLICABLE FOR DIALYSIS PATIENTS. Compotype Operator ID - PIFILIPPO LBLOOD [id number] 22:01:00* Test Item Value Reference Range Interpretation Comments CULTURE (BEAKER) (test code = 1095) No growth in 5 days BLOOD [id number] 22:01:00* Test Item Value Reference Range Interpretation Comments CULTURE (BEAKER) (test code = 1095) No growth in 5 days CBC W/PLT COUNT & AUTO [id number] 09:50:00* Test Item Value Reference Range Interpretation Comments WHITE BLOOD CELL COUNT (BEAKER) (test code = 775) 0.3 K/ L 3.5- 10.5 LL RED BLOOD CELL COUNT (BEAKER) (test code = 761) 3.04 M/ L 3.93-5 .22 L HEMOGLOBIN (BEAKER) (test code = 410) 8.7 GM/DL 11.2-15.7 L HEMATOCRIT (BEAKER) (test code = 411) 25.6 % 34.1-44.9 L MEAN CORPUSCULAR VOLUME (BEAKER) (test code = 753) 84.2 fL 79. 4-94.8 MEAN CORPUSCULAR HEMOGLOBIN (BEAKER) (test code = 751) 28.6 pg 25.6-32.2 MEAN CORPUSCULAR HEMOGLOBIN CONC (BEAKER) (test code = 752) 34.0 GM/DL 32.2-35.5 RED CELL DISTRIBUTION WIDTH (BEAKER) (test code = 412) 16.2 % 11.7-14.4 H PLATELET COUNT (BEAKER) (test code = 756) 14 K/CU MM 150-450 L Discordant PLT result compared to previous result; clinical correlation required. MEAN PLATELET VOLUME (BEAKER) (test code = 754) Unable to report due to abnormal Platelet population distribution. NUCLEATED RED BLOOD CELLS (BEAKER) (test code = 413) 0 /100 WBC 0 -0 (MANUAL DIFFERENTIAL)2019-10-13 09:50:00* Test Item Value Reference Range Interpretation Comments NEUTROPHILS - REL (DIFF) (BEAKER) (test code = 1359) 18 % LYMPHOCYTES - REL (DIFF) (BEAKER) (test code = 1360) 70 % MONOCYTES - REL (DIFF) (BEAKER) (test code = 1361) 2 % BANDS - REL (DIFF) (BEAKER) (test code = 1348) 3 % 0-10 ATYPICAL LYMPHOCYTE - REL (DIFF) (BEAKER) (test code = 260) 7 % 0-0 H NEUTROPHILS - ABS (DIFF) (BEAKER) (test code = 1365) 0.05 K/ L 1 .80-8.00 L LYMPHOCYTES - ABS (DIFF) (BEAKER) (test code = 1366) 0.21 K/ L 1 .48-4.50 L MONOCYTES - ABS (DIFF) (BEAKER) (test code = 1367) 0.01 K/ L 0.0 0-1.30 BANDS-ABS (DIFF) (BEAKER) (test code = 1349) 0.0 K/ L 0.0-0.8 ATYPICAL LYMPHOCYTES - ABS (DIFF) (BEAKER) (test code = 263) 0.02 K/ L 0.00-0.00 H TOTAL COUNTED (BEAKER) (test code = 1351) 100 BANDS + SEGMENTED NEUTROPHILS (BEAKER) (test code = 1352) 0.06 WBC MORPHOLOGY (BEAKER) (test code = 487) Normal PLT MORPHOLOGY (BEAKER) (test code = 486) Normal ANISOCYTOSIS (BEAKER) (test code = 961) 2+ moderate HYPOCHROMIA (BEAKER) (test code = 963) 1+ few MACROCYTES (BEAKER) (test code = 964) 2+ moderate MICROCYTES (BEAKER) (test code = 965) 1+ few OVALOCYTES (BEAKER) (test code = 477) 1+ few POIKILOCYTES (BEAKER) (test code = 966) 1+ few [id number] 05:33:00* Test Item Value Reference Range Interpretation Comments MAGNESIUM (BEAKER) (test code = 627) 2.2 mg/dL 1.6-2.6 Compotype Operator HUNG - CONSUELO MBASIC METABOLIC [id number] 05:33:00* Test Item Value Reference Range Interpretation Comments SODIUM (BEAKER) (test code = 381) 140 meq/L 136-145 POTASSIUM (BEAKER) (test code = 379) 4.1 meq/L 3.5-5.1 CHLORIDE (BEAKER) (test code = 382) 107 meq/L 98-107 CO2 (BEAKER) (test code = 355) 26 meq/L 22-29 BLOOD UREA NITROGEN (BEAKER) (test code = 354) 8 mg/dL 7-21 CREATININE (BEAKER) (test code = 358) 0.54 mg/dL 0.57-1.25 L GLUCOSE RANDOM (BEAKER) (test code = 652) 88 mg/dL 70-105 CALCIUM (BEAKER) (test code = 697) 8.5 mg/dL 8.4-10.2 EGFR (BEAKER) (test code = 1092) 115 mL/min/1.73 sq m ESTIMATED GFR IS NOT ACCURATE CREATININE CLEARANCE IN PREDICTING GLOMERULAR FILTRATION RATE. ESTIMATED GFR IS NOT APPLICABLE FOR DIALYSIS PATIENTS. Compotype Operator ID - CONSUELO MCBC W/PLT COUNT & AUTO [id number] 09:42:00* Test Item Value Reference Range Interpretation Comments WHITE BLOOD CELL COUNT (BEAKER) (test code = 775) 0.3 K/ L 3.5- 10.5 LL RED BLOOD CELL COUNT (BEAKER) (test code = 761) 2.35 M/ L 3.93-5 .22 L HEMOGLOBIN (BEAKER) (test code = 410) 6.3 GM/DL 11.2-15.7 L HEMATOCRIT (BEAKER) (test code = 411) 19.7 % 34.1-44.9 L MEAN CORPUSCULAR VOLUME (BEAKER) (test code = 753) 83.8 fL 79. 4-94.8 MEAN CORPUSCULAR HEMOGLOBIN (BEAKER) (test code = 751) 26.8 pg 25.6-32.2 MEAN CORPUSCULAR HEMOGLOBIN CONC (BEAKER) (test code = 752) 32.0 GM/DL 32.2-35.5 L RED CELL DISTRIBUTION WIDTH (BEAKER) (test code = 412) 16.1 % 11.7-14.4 H PLATELET COUNT (BEAKER) (test code = 756) 28 K/CU MM 150-450 L MEAN PLATELET VOLUME (BEAKER) (test code = 754) 10.2 fL 9.4-12 .3 NUCLEATED RED BLOOD CELLS (BEAKER) (test code = 413) 0 /100 WBC 0 -0 (CELLAVISION MANUAL DIFF)2019-10-12 09:42:00* Test Item Value Reference Range Interpretation Comments NEUTROPHILS - REL (CELLAVISION)(BEAKER) (test code = 2816) 50 % LYMPHOCYTES - REL (CELLAVISION)(BEAKER) (test code = 2817) 46 % ATYPICAL LYMPHOCYTES - REL (CELLAVISION)(BEAKER) (test code = 2829) 4 % 0-0 H NEUTROPHILS - ABS (CELLAVISION)(BEAKER) (test code = 2830) 0.15 K/ul 1.56-6.13 L LYMPHOCYTES - ABS (CELLAVISION)(BEAKER) (test code = 2831) 0.14 K/ul 1.18-3.74 L ATYPICAL LYMPHOCYTES - ABS (CELLAVISION)(BEAKER) (test code = 2858) 0.01 K/uL 0.00-0.00 H TOTAL COUNTED (BEAKER) (test code = 1351) 100 WBC MORPHOLOGY (BEAKER) (test code = 487) Normal PLT MORPHOLOGY (BEAKER) (test code = 486) Normal POLYCHROMATOPHILLIC RBCS(BEAKER) (test code = 478) 3+ many HYPOCHROMIA (BEAKER) (test code = 963) 2+ moderate ANISOCYTOSIS (BEAKER) (test code = 961) 2+ moderate MICROCYTES (BEAKER) (test code = 965) 2+ moderate POIKILOCYTES (BEAKER) (test code = 966) 2+ moderate ROULEAUX (BEAKER) (test code = 763) 1+ few SPHEROCYTES (BEAKER) (test code = 768) 2+ moderate ELLIPTOCYTES (BEAKER) (test code = 962) 1+ few OVALOCYTES (BEAKER) (test code = 477) 1+ few ARTIFACT (CELLAVISION)(BEAKER) (test code = 3432) Present PLATELET CONCENTRATION (CELLAVISION)(BEAKER) (test code = 3438) Dec reased Compotype Operator ID - [id number] ID - Aixa García comments: Slide comments: CT, CHEST, WITH [id number] 09:02:00FINAL REPORT CT of the chest, abdomen and pelvis, with contrast Clinical History: neutropenic fever, LUQ pain Technique: CT of the chest, abdomen and pelvis is performed with intravenous contrast administration. This exam was performed according to our departmental dose optimization program which includes automated exposure control, adjustment of the mA and/or kV according to patient's size and/or use of iterative reconstructive technique. Comparison Film: September 30, 2019 Discussion: Visualized thyroid gland is normal. There is a right-sided PICC line. No supraclavicular, axillary, mediastinal or hilar lymphadenopathy. Heart and pericardium are unremarkable. There is no mass or consolidation two small nodular foci of groundglass opacities are seen in the right upper lobe. There is no pleural effusion. No bronchiectasis or bronchial wall thickening. No liver lesion is identified. No biliary ductal dilatation and the gallbladder is normal. Spleen, pancreas, adrenal glands are unremarkable. Kidneys demonstrate no hydronephrosis, mass or radiopaque stone. No evidence of bowel obstruction, or abnormal bowel wall thickening. No pericecal inflammatory change. Primarily liquid content in colon could reflect diarrhea. Small bowel is slightly fluid- filled as well. There is no significant mesenteric, or pericolonic edema. In the pelvis, bladder, uterus and adnexa are unremarkable. No ascites, free air, or lymphadenopathy. Osseous structures are intact. Impression: Two small nodular f oci of groundglass opacities in the right upper lobe are nonspecific and may ref lect infectious or inflammatory process. Findings suggest diarrhea. Correlate cl inically for enterocolitis. Signed: Kenzie Villeda Verified Date/Time: 10/11 09:02:21 Reading Location: [facility] C013X Ortho Consult Reading Room , ABDOMEN 2019-10-12 09:02:00FINAL REPORT CT of the chest, abdomen and pelvis, with contrast Clinical History: neutropenic fever, LUQ pain Technique: CT of the chest, abdomen and pelvis is performed with intravenous contrast administration. This exam was performed according to our departmental dose optimization program which includes automated exposure control, adjustment of the mA and/or kV according to patient's size and/or use of iterative reconstructive technique. Comparison Film: September 30, 2019 Discussion: Visualized thyroid gland is normal. There is a right-sided PICC line. No supraclavicular, axillary, mediastinal or hilar lymphadenopathy. Heart and pericardium are unremarkable. There is no mass or consolidation two small nodular foci of groundglass opacities are seen in the right upper lobe. There is no pleural effusion. No bronchiectasis or bronchial wall thickening. No liver lesion is identified. No biliary ductal dilatation and the gallbladder is normal. Spleen, pancreas, adrenal glands are unremarkable. Kidneys demonstrate no hydronephrosis, mass or radiopaque stone. No evidence of bowel obstruction, or abnormal bowel wall thickening. No pericecal inflammatory change. Primarily liquid content in colon could reflect diarrhea. Small bowel is slightly fluid- filled as well. There is no significant mesenteric, or pericolonic edema. In the pelvis, bladder, uterus and adnexa are unremarkable. No ascites, free air, or lymphadenopathy. Osseous structures are intact. Impression: Two small nodular f oci of groundglass opacities in the right upper lobe are nonspecific and may ref lect infectious or inflammatory process. Findings suggest diarrhea. Correlate cl inically for enterocolitis. Signed: Kenzie Villeda MDReport Verified Date/Time: 10/11 09:02:21 Reading Location: [facility] B1 C013X Ortho Consult Reading Room , MAXILLOFACIAL AREA, [id number] 07:09:00FINAL REPORT CT, MAXILLOFACIAL AREA, CONTRAST INDICATION: headache, neutropenic fever TECHNIQUE: Axial CT images are obtained through the paranasal sinuses with and withoutintravenous contrast. Coronal and sagittal reformatted images are provided. DOSE REDUCTION: Dose modulation, iterative reconstruction, and/or weight-based adjustment of the mA/kV was utilized to reduce the radiation dose to as low as reasonably achievable. COMPARISON: None FINDINGS:Right paranasal sinuses: Maxillary chambers: Clear. Ostium, infundibulum and hiatus semilunaris are clear. Ethmoid air cells: Normally pneumatized. Frontal sinus: Chamber and recess are clear. Sphenoid sinus: Chamber and ostium clear. Onodi cell: Not present. Left paranasal sinuses: Maxillary ch ambers: Clear. Ostium, infundibulum and hiatus semilunaris are clear. Ethmoi d air cells: Normally pneumatized. Frontal sinus: Chamber and recess are cl ear. Sphenoid sinus: Chamber and ostium clear. Onodi cell: Not present. Coronal images: Anterior skull base: Intact Anterior ethmoid artery can al: Intact Nasal septum: Mild leftward deviation, maximally 3 mm leftward wi thout contact on the adjacent turbinates. Additional findings: Visible brai n: Unremarkable Temporal structures: Mastoid and middle ear cavities clear Temporomandibular joints: Normally aligned Obits: Unremarkable No focal o r abnormal contrast enhancement IMPRESSION: No paranasal sinus disease. Signed : JR Valentino Robert MDReport Verified Date/Time: 10/12/2019 07:09:34 Candelaria nieves Location: [facility] B1 C013V Neuro Reading Room C METABOLIC [id number] 05:20:00* Test Item Value Reference Range Interpretation Comments SODIUM (BEAKER) (test code = 381) 137 meq/L 136-145 POTASSIUM (BEAKER) (test code = 379) 3.1 meq/L 3.5-5.1 L CHLORIDE (BEAKER) (test code = 382) 107 meq/L 98-107 CO2 (BEAKER) (test code = 355) 24 meq/L 22-29 BLOOD UREA NITROGEN (BEAKER) (test code = 354) 10 mg/dL 7-21 CREATININE (BEAKER) (test code = 358) 0.62 mg/dL 0.57-1.25 GLUCOSE RANDOM (BEAKER) (test code = 652) 123 mg/dL 70-105 H CALCIUM (BEAKER) (test code = 697) 8.0 mg/dL 8.4-10.2 L EGFR (BEAKER) (test code = 1092) 98 mL/min/1.73 sq m ESTIMATED GFR IS NOT ACCURATE CREATININE CLEARANCE IN PREDICTING GLOMERULAR FILTRATION RATE. ESTIMATED GFR IS NOT APPLICABLE FOR DIALYSIS PATIENTS. Compotype Operator ID - TALIB WCBC W/PLT COUNT & AUTO [id number] 11:59:00* Test Item Value Reference Range Interpretation Comments WHITE BLOOD CELL COUNT (BEAKER) (test code = 775) 0.2 K/ L 3.5- 10.5 LL RED BLOOD CELL COUNT (BEAKER) (test code = 761) 2.54 M/ L 3.93-5 .22 L HEMOGLOBIN (BEAKER) (test code = 410) 7.1 GM/DL 11.2-15.7 L HEMATOCRIT (BEAKER) (test code = 411) 21.4 % 34.1-44.9 L MEAN CORPUSCULAR VOLUME (BEAKER) (test code = 753) 84.3 fL 79. 4-94.8 MEAN CORPUSCULAR HEMOGLOBIN (BEAKER) (test code = 751) 28.0 pg 25.6-32.2 MEAN CORPUSCULAR HEMOGLOBIN CONC (BEAKER) (test code = 752) 33.2 GM/DL 32.2-35.5 RED CELL DISTRIBUTION WIDTH (BEAKER) (test code = 412) 15.8 % 11.7-14.4 H PLATELET COUNT (BEAKER) (test code = 756) 51 K/CU MM 150-450 L Discordant PLT result compared to previous result; clinical correlation required. MEAN PLATELET VOLUME (BEAKER) (test code = 754) 10.8 fL 9.4-12 .3 NUCLEATED RED BLOOD CELLS (BEAKER) (test code = 413) 0 /100 WBC 0 -0 (MANUAL DIFFERENTIAL)2019-10-11 11:59:00* Test Item Value Reference Range Interpretation Comments NEUTROPHILS - REL (DIFF) (BEAKER) (test code = 1359) 28 % LYMPHOCYTES - REL (DIFF) (BEAKER) (test code = 1360) 56 % MONOCYTES - REL (DIFF) (BEAKER) (test code = 1361) 3 % EOSINOPHILS - REL (DIFF) (BEAKER) (test code = 1362) 0 % BASOPHILS - REL (DIFF) (BEAKER) (test code = 1363) 0 % BANDS - REL (DIFF) (BEAKER) (test code = 1348) 6 % 0-10 ATYPICAL LYMPHOCYTE - REL (DIFF) (BEAKER) (test code = 260) 7 % 0-0 H NEUTROPHILS - ABS (DIFF) (BEAKER) (test code = 1365) 0.06 K/ L 1 .80-8.00 L LYMPHOCYTES - ABS (DIFF) (BEAKER) (test code = 1366) 0.11 K/ L 1 .48-4.50 L MONOCYTES - ABS (DIFF) (BEAKER) (test code = 1367) 0.01 K/ L 0.0 0-1.30 EOSINOPHILS - ABS (DIFF) (BEAKER) (test code = 1368) 0.00 K/ L 0 .00-0.50 BASOPHILS - ABS (DIFF) (BEAKER) (test code = 1369) 0.00 K/ L 0.0 0-0.20 BANDS-ABS (DIFF) (BEAKER) (test code = 1349) 0.0 K/ L 0.0-0.8 ATYPICAL LYMPHOCYTES - ABS (DIFF) (BEAKER) (test code = 263) 0.01 K/ L 0.00-0.00 H TOTAL COUNTED (BEAKER) (test code = 1351) 100 BANDS + SEGMENTED NEUTROPHILS (BEAKER) (test code = 1352) 0.07 WBC MORPHOLOGY (BEAKER) (test code = 487) Normal PLT MORPHOLOGY (BEAKER) (test code = 486) Normal RBC MORPHOLOGY (BEAKER) (test code = 762) Normal BASIC METABOLIC [id number] 06:01:00* Test Item Value Reference Range Interpretation Comments SODIUM (BEAKER) (test code = 381) 136 meq/L 136-145 POTASSIUM (BEAKER) (test code = 379) 3.1 meq/L 3.5-5.1 L CHLORIDE (BEAKER) (test code = 382) 106 meq/L 98-107 CO2 (BEAKER) (test code = 355) 25 meq/L 22-29 BLOOD UREA NITROGEN (BEAKER) (test code = 354) 7 mg/dL 7-21 CREATININE (BEAKER) (test code = 358) 0.57 mg/dL 0.57-1.25 GLUCOSE RANDOM (BEAKER) (test code = 652) 98 mg/dL 70-105 CALCIUM (BEAKER) (test code = 697) 8.6 mg/dL 8.4-10.2 EGFR (BEAKER) (test code = 1092) 108 mL/min/1.73 sq m ESTIMATED GFR IS NOT ACCURATE CREATININE CLEARANCE IN PREDICTING GLOMERULAR FILTRATION RATE. ESTIMATED GFR IS NOT APPLICABLE FOR DIALYSIS PATIENTS. Compotype Operator ID - CONSUELO MCBC W/PLT COUNT & AUTO [id number] 10:15:00* Test Item Value Reference Range Interpretation Comments WHITE BLOOD CELL COUNT (BEAKER) (test code = 775) 0.2 K/ L 3.5- 10.5 LL RED BLOOD CELL COUNT (BEAKER) (test code = 761) 2.50 M/ L 3.93-5 .22 L HEMOGLOBIN (BEAKER) (test code = 410) 7.1 GM/DL 11.2-15.7 L HEMATOCRIT (BEAKER) (test code = 411) 21.2 % 34.1-44.9 L MEAN CORPUSCULAR VOLUME (BEAKER) (test code = 753) 84.8 fL 79. 4-94.8 MEAN CORPUSCULAR HEMOGLOBIN (BEAKER) (test code = 751) 28.4 pg 25.6-32.2 MEAN CORPUSCULAR HEMOGLOBIN CONC (BEAKER) (test code = 752) 33.5 GM/DL 32.2-35.5 RED CELL DISTRIBUTION WIDTH (BEAKER) (test code = 412) 16.2 % 11.7-14.4 H PLATELET COUNT (BEAKER) (test code = 756) 15 K/CU MM 150-450 L MEAN PLATELET VOLUME (BEAKER) (test code = 754) 11.2 fL 9.4-12 .3 NUCLEATED RED BLOOD CELLS (BEAKER) (test code = 413) 0 /100 WBC 0 -0 (CELLAVISION MANUAL DIFF)2019-10-10 10:15:00* Test Item Value Reference Range Interpretation Comments NEUTROPHILS - REL (CELLAVISION)(BEAKER) (test code = 2816) 34 % LYMPHOCYTES - REL (CELLAVISION)(BEAKER) (test code = 2817) 60 % ATYPICAL LYMPHOCYTES - REL (CELLAVISION)(BEAKER) (test code = 2829) 6 % 0-0 H NEUTROPHILS - ABS (CELLAVISION)(BEAKER) (test code = 2830) 0.07 K/ul 1.56-6.13 L LYMPHOCYTES - ABS (CELLAVISION)(BEAKER) (test code = 2831) 0.12 K/ul 1.18-3.74 L ATYPICAL LYMPHOCYTES - ABS (CELLAVISION)(BEAKER) (test code = 2858) 0.01 K/uL 0.00-0.00 H TOTAL COUNTED (BEAKER) (test code = 1351) 100 WBC MORPHOLOGY (BEAKER) (test code = 487) Normal PLT MORPHOLOGY (BEAKER) (test code = 486) Normal POLYCHROMATOPHILLIC RBCS(BEAKER) (test code = 478) 1+ few HYPOCHROMIA (BEAKER) (test code = 963) 2+ moderate PLATELET CONCENTRATION (CELLAVISION)(BEAKER) (test code = 3438) Dec reased Compotype Operator ID - [id number] ID - Nguyen Drake comments: Slide comments: RAD, CHEST, 1 VIEW, NON [id number] 08:00:00Reason for exam:->feverShould this be performed at the bedside?->YesFINAL REPORT CLINICAL HISTORY: fever TECHNIQUE: 1 view of the chest. COMPARISON: 10/08/2019 IMPRESSION: The right PICC line remains in the SVC. There are no focal infiltrates or effusions. The cardiomediastinal silhouette is within normal limits for size. The osseous structures appear intact. Signed: Berto Roca Verified Date/Time: 10/10/2019 08:00:17 Reading Location: [facility] Radiology Reading Room C METABOLIC [id number] 06:31:00* Test Item Value Reference Range Interpretation Comments SODIUM (BEAKER) (test code = 381) 135 meq/L 136-145 L POTASSIUM (BEAKER) (test code = 379) 3.6 meq/L 3.5-5.1 CHLORIDE (BEAKER) (test code = 382) 105 meq/L 98-107 CO2 (BEAKER) (test code = 355) 25 meq/L 22-29 BLOOD UREA NITROGEN (BEAKER) (test code = 354) 8 mg/dL 7-21 CREATININE (BEAKER) (test code = 358) 0.64 mg/dL 0.57-1.25 GLUCOSE RANDOM (BEAKER) (test code = 652) 224 mg/dL 70-105 H CALCIUM (BEAKER) (test code = 697) 8.3 mg/dL 8.4-10.2 L EGFR (BEAKER) (test code = 1092) 95 mL/min/1.73 sq m ESTIMATED GFR IS NOT ACCURATE CREATININE CLEARANCE IN PREDICTING GLOMERULAR FILTRATION RATE. ESTIMATED GFR IS NOT APPLICABLE FOR DIALYSIS PATIENTS. Compotype Operator ID - PIAYA LCBC W/PLT COUNT & AUTO [id number] 10:04:00* Test Item Value Reference Range Interpretation Comments WHITE BLOOD CELL COUNT (BEAKER) (test code = 775) 0.2 K/ L 3.5- 10.5 LL RED BLOOD CELL COUNT (BEAKER) (test code = 761) 2.71 M/ L 3.93-5 .22 L HEMOGLOBIN (BEAKER) (test code = 410) 7.7 GM/DL 11.2-15.7 L HEMATOCRIT (BEAKER) (test code = 411) 23.1 % 34.1-44.9 L MEAN CORPUSCULAR VOLUME (BEAKER) (test code = 753) 85.2 fL 79. 4-94.8 MEAN CORPUSCULAR HEMOGLOBIN (BEAKER) (test code = 751) 28.4 pg 25.6-32.2 MEAN CORPUSCULAR HEMOGLOBIN CONC (BEAKER) (test code = 752) 33.3 GM/DL 32.2-35.5 RED CELL DISTRIBUTION WIDTH (BEAKER) (test code = 412) 16.5 % 11.7-14.4 H PLATELET COUNT (BEAKER) (test code = 756) 27 K/CU MM 150-450 L MEAN PLATELET VOLUME (BEAKER) (test code = 754) 11.2 fL 9.4-12 .3 NUCLEATED RED BLOOD CELLS (BEAKER) (test code = 413) 0 /100 WBC 0 -0 (CELLAVISION MANUAL DIFF)2019-10-09 10:04:00* Test Item Value Reference Range Interpretation Comments NEUTROPHILS - REL (CELLAVISION)(BEAKER) (test code = 2816) 28 % LYMPHOCYTES - REL (CELLAVISION)(BEAKER) (test code = 2817) 61 % MONOCYTES - REL (CELLAVISION)(BEAKER) (test code = 2818) 5 % EOSINOPHILS - REL (CELLAVISION)(BEAKER) (test code = 2819) 1 % BASOPHILS - REL (CELLAVISION)(BEAKER) (test code = 2820) 1 % METAMYELOCYTES - REL (CELLAVISION)(BEAKER) (test code = 2821) 1 % 0-0 H BANDS - REL (CELLAVISION)(BEAKER) (test code = 2826) 2 % 0 -10 ATYPICAL LYMPHOCYTES - REL (CELLAVISION)(BEAKER) (test code = 2829) 1 % 0-0 H NEUTROPHILS - ABS (CELLAVISION)(BEAKER) (test code = 2830) 0.06 K/ul 1.56-6.13 L LYMPHOCYTES - ABS (CELLAVISION)(BEAKER) (test code = 2831) 0.12 K/ul 1.18-3.74 L MONOCYTES - ABS (CELLAVISION)(BEAKER) (test code = 2832) 0.01 K/uL 0.24-0.36 L EOSINOPHILS - ABS (CELLAVISION)(BEAKER) (test code = 2834) 0.00 K/uL 0.04-0.36 L BASOPHILS - ABS (CELLAVISION)(BEAKER) (test code = 2835) 0.00 K/uL 0.01-0.08 L METAMYELOCYTES - ABS (CELLAVISION)(BEAKER) (test code = 2836 ) 0.00 K/uL 0.00-0.00 BANDS - ABS (CELLAVISION)(BEAKER) (test code = 2840) 0.00 K/uL 0 .00-0.80 ATYPICAL LYMPHOCYTES - ABS (CELLAVISION)(BEAKER) (test code = 2858) 0.00 K/uL 0.00-0.00 TOTAL COUNTED (BEAKER) (test code = 1351) 100 WBC MORPHOLOGY (BEAKER) (test code = 487) Normal PLT MORPHOLOGY (BEAKER) (test code = 486) Normal POLYCHROMATOPHILLIC RBCS(BEAKER) (test code = 478) 1+ few PLATELET CONCENTRATION (CELLAVISION)(BEAKER) (test code = 3438) Dec reased Compotype Operator ID - [id number] ID - Nguyen Drake comments: Slide comments: Wbc diff erential done on buffy coat smearBASI METABOLIC [id number] 06:13:00* Test Item Value Reference Range Interpretation Comments SODIUM (BEAKER) (test code = 381) 135 meq/L 136-145 L POTASSIUM (BEAKER) (test code = 379) 3.7 meq/L 3.5-5.1 CHLORIDE (BEAKER) (test code = 382) 104 meq/L 98-107 CO2 (BEAKER) (test code = 355) 24 meq/L 22-29 BLOOD UREA NITROGEN (BEAKER) (test code = 354) 10 mg/dL 7-21 CREATININE (BEAKER) (test code = 358) 0.44 mg/dL 0.57-1.25 L GLUCOSE RANDOM (BEAKER) (test code = 652) 108 mg/dL 70-105 H CALCIUM (BEAKER) (test code = 697) 8.4 mg/dL 8.4-10.2 EGFR (BEAKER) (test code = 1092) 146 mL/min/1.73 sq m ESTIMATED GFR IS NOT ACCURATE CREATININE CLEARANCE IN PREDICTING GLOMERULAR FILTRATION RATE. ESTIMATED GFR IS NOT APPLICABLE FOR DIALYSIS PATIENTS. Compotype Operator ID - WU LRAD, CHEST, 1 VIEW, NON [id number] 23:46:00Reason for exam:->feverFINAL REPORT RAD, CHEST, 1 VIEW, NON DEPT INDICATION: fever COMPARISON: September 30, 2019 FINDINGS: Portable frontal view of the chest. IMPRESSION: Support Lines: Right PICC tip overlies the proximal SVC. Lungs and pleura: Interval development of minimal opacities within the left lung base with partial obscuration of the left hemidiaphragm likely atelectasis but pneumonitis should be excluded clinically. The remainder of the lungs are clear. No large pleural effusion. No pneumothorax.Heart and mediastinum: Stable contours. Additional findings: None. Signed: Victoriano Davidson MDReport Verified Date/Time: 10/08/2019 23:46:32 ALYSIS W/ REFLEX URINE [id number] 22:05:00* Test Item Value Reference Range Interpretation Comments COLOR (BEAKER) (test code = 470) Light Yellow CLARITY (BEAKER) (test code = 469) Clear SPECIFIC GRAVITY UA (BEAKER) (test code = 468) 1.016 1.001-1 .035 PH UA (BEAKER) (test code = 467) 7.5 5.0-8.0 PROTEIN UA (BEAKER) (test code = 464) Negative Negative GLUCOSE UA (BEAKER) (test code = 365) Negative Negative KETONES UA (BEAKER) (test code = 371) Negative Negative BILIRUBIN UA (BEAKER) (test code = 462) Negative Negative BLOOD UA (BEAKER) (test code = 461) Negative Negative NITRITE UA (BEAKER) (test code = 465) Negative Negative LEUKOCYTE ESTERASE UA (BEAKER) (test code = 466) Negative Negat neetu UROBILINOGEN UA (BEAKER) (test code = 463) 0.2 mg/dL 0.2-1.0 RBC UA (BEAKER) (test code = 519) < /HPF WBC UA (BEAKER) (test code = 520) 0 /HPF MUCUS (BEAKER) (test code = 1574) Rare SQUAMOUS EPITHELIAL (BEAKER) (test code = 516) < /HPF SOURCE(BEAKER) (test code = 2795) Compotype Operator ID - [auto]Compotype Operator ID - techVANCOMYCIN LEVEL, [id number] 17:17:00* Test Item Value Reference Range Interpretation Comments VANCOMYCIN TROUGH (BEAKER) (test code = 522) 11.7 ug/mL 10.0-20.0 Compotype Operator ID - BSCBC W/PLT COUNT & AUTO [id number] 10:34:00* Test Item Value Reference Range Interpretation Comments WHITE BLOOD CELL COUNT (BEAKER) (test code = 775) 0.2 K/ L 3.5- 10.5 LL RED BLOOD CELL COUNT (BEAKER) (test code = 761) 2.82 M/ L 3.93-5 .22 L HEMOGLOBIN (BEAKER) (test code = 410) 8.0 GM/DL 11.2-15.7 L HEMATOCRIT (BEAKER) (test code = 411) 24.0 % 34.1-44.9 L MEAN CORPUSCULAR VOLUME (BEAKER) (test code = 753) 85.1 fL 79. 4-94.8 MEAN CORPUSCULAR HEMOGLOBIN (BEAKER) (test code = 751) 28.4 pg 25.6-32.2 MEAN CORPUSCULAR HEMOGLOBIN CONC (BEAKER) (test code = 752) 33.3 GM/DL 32.2-35.5 RED CELL DISTRIBUTION WIDTH (BEAKER) (test code = 412) 16.5 % 11.7-14.4 H PLATELET COUNT (BEAKER) (test code = 756) 40 K/CU MM 150-450 L Discordant PLT result compared to previous result; clinical correlation required. MEAN PLATELET VOLUME (BEAKER) (test code = 754) 9.9 fL 9.4-12 .3 NUCLEATED RED BLOOD CELLS (BEAKER) (test code = 413) 0 /100 WBC 0 -0 (CELLAVISION MANUAL DIFF)2019-10-08 10:34:00* Test Item Value Reference Range Interpretation Comments NEUTROPHILS - REL (CELLAVISION)(BEAKER) (test code = 2816) 9 % LYMPHOCYTES - REL (CELLAVISION)(BEAKER) (test code = 2817) 82 % MONOCYTES - REL (CELLAVISION)(BEAKER) (test code = 2818) 1 % ATYPICAL LYMPHOCYTES - REL (CELLAVISION)(BEAKER) (test code = 2829) 8 % 0-0 H NEUTROPHILS - ABS (CELLAVISION)(BEAKER) (test code = 2830) 0.02 K/ul 1.56-6.13 L LYMPHOCYTES - ABS (CELLAVISION)(BEAKER) (test code = 2831) 0.16 K/ul 1.18-3.74 L MONOCYTES - ABS (CELLAVISION)(BEAKER) (test code = 2832) 0.00 K/uL 0.24-0.36 L ATYPICAL LYMPHOCYTES - ABS (CELLAVISION)(BEAKER) (test code = 2858) 0.02 K/uL 0.00-0.00 H TOTAL COUNTED (BEAKER) (test code = 1351) 100 RBC MORPHOLOGY (BEAKER) (test code = 762) Normal WBC MORPHOLOGY (BEAKER) (test code = 487) Normal PLT MORPHOLOGY (BEAKER) (test code = 486) Normal Compotype Operator ID - [id number] METABOLIC [id number] 06:27:00* Test Item Value Reference Range Interpretation Comments SODIUM (BEAKER) (test code = 381) 133 meq/L 136-145 L POTASSIUM (BEAKER) (test code = 379) 4.0 meq/L 3.5-5.1 CHLORIDE (BEAKER) (test code = 382) 100 meq/L 98-107 CO2 (BEAKER) (test code = 355) 24 meq/L 22-29 BLOOD UREA NITROGEN (BEAKER) (test code = 354) 10 mg/dL 7-21 CREATININE (BEAKER) (test code = 358) 0.62 mg/dL 0.57-1.25 GLUCOSE RANDOM (BEAKER) (test code = 652) 99 mg/dL 70-105 CALCIUM (BEAKER) (test code = 697) 8.2 mg/dL 8.4-10.2 L EGFR (BEAKER) (test code = 1092) 98 mL/min/1.73 sq m ESTIMATED GFR IS NOT ACCURATE CREATININE CLEARANCE IN PREDICTING GLOMERULAR FILTRATION RATE. ESTIMATED GFR IS NOT APPLICABLE FOR DIALYSIS PATIENTS. Compotype Operator ID - DBCBC W/PLT COUNT & AUTO [id number] 11:48:00* Test Item Value Reference Range Interpretation Comments WHITE BLOOD CELL COUNT (BEAKER) (test code = 775) 0.3 K/ L 3.5- 10.5 LL RED BLOOD CELL COUNT (BEAKER) (test code = 761) 3.21 M/ L 3.93-5 .22 L HEMOGLOBIN (BEAKER) (test code = 410) 9.0 GM/DL 11.2-15.7 L HEMATOCRIT (BEAKER) (test code = 411) 27.0 % 34.1-44.9 L MEAN CORPUSCULAR VOLUME (BEAKER) (test code = 753) 84.1 fL 79. 4-94.8 MEAN CORPUSCULAR HEMOGLOBIN (BEAKER) (test code = 751) 28.0 pg 25.6-32.2 MEAN CORPUSCULAR HEMOGLOBIN CONC (BEAKER) (test code = 752) 33.3 GM/DL 32.2-35.5 RED CELL DISTRIBUTION WIDTH (BEAKER) (test code = 412) 17.0 % 11.7-14.4 H PLATELET COUNT (BEAKER) (test code = 756) 12 K/CU MM 150-450 L MEAN PLATELET VOLUME (BEAKER) (test code = 754) Unable to report due to abnormal Platelet population distribution. NUCLEATED RED BLOOD CELLS (BEAKER) (test code = 413) 0 /100 WBC 0 -0 (MANUAL DIFFERENTIAL)2019-10-07 11:48:00* Test Item Value Reference Range Interpretation Comments NEUTROPHILS - REL (DIFF) (BEAKER) (test code = 1359) 2 % LYMPHOCYTES - REL (DIFF) (BEAKER) (test code = 1360) 92 % MONOCYTES - REL (DIFF) (BEAKER) (test code = 1361) 3 % EOSINOPHILS - REL (DIFF) (BEAKER) (test code = 1362) 0 % BASOPHILS - REL (DIFF) (BEAKER) (test code = 1363) 0 % ATYPICAL LYMPHOCYTE - REL (DIFF) (BEAKER) (test code = 260) 3 % 0-0 H NEUTROPHILS - ABS (DIFF) (BEAKER) (test code = 1365) 0.01 K/ L 1 .80-8.00 L LYMPHOCYTES - ABS (DIFF) (BEAKER) (test code = 1366) 0.28 K/ L 1 .48-4.50 L MONOCYTES - ABS (DIFF) (BEAKER) (test code = 1367) 0.01 K/ L 0.0 0-1.30 EOSINOPHILS - ABS (DIFF) (BEAKER) (test code = 1368) 0.00 K/ L 0 .00-0.50 BASOPHILS - ABS (DIFF) (BEAKER) (test code = 1369) 0.00 K/ L 0.0 0-0.20 ATYPICAL LYMPHOCYTES - ABS (DIFF) (BEAKER) (test code = 263) 0.01 K/ L 0.00-0.00 H TOTAL COUNTED (BEAKER) (test code = 1351) 100 WBC MORPHOLOGY (BEAKER) (test code = 487) Normal PLT MORPHOLOGY (BEAKER) (test code = 486) Normal ANISOCYTOSIS (BEAKER) (test code = 961) 1+ few BASIC METABOLIC [id number] 06:07:00* Test Item Value Reference Range Interpretation Comments SODIUM (BEAKER) (test code = 381) 135 meq/L 136-145 L POTASSIUM (BEAKER) (test code = 379) 3.9 meq/L 3.5-5.1 Specimen slightly hemolyzed CHLORIDE (BEAKER) (test code = 382) 101 meq/L 98-107 CO2 (BEAKER) (test code = 355) 26 meq/L 22-29 BLOOD UREA NITROGEN (BEAKER) (test code = 354) 9 mg/dL 7-21 CREATININE (BEAKER) (test code = 358) 0.62 mg/dL 0.57-1.25 Specimen slightly hemolyzed GLUCOSE RANDOM (BEAKER) (test code = 652) 98 mg/dL 70-105 CALCIUM (BEAKER) (test code = 697) 8.8 mg/dL 8.4-10.2 EGFR (BEAKER) (test code = 1092) 98 mL/min/1.73 sq m ESTIMATED GFR IS NOT ACCURATE CREATININE CLEARANCE IN PREDICTING GLOMERULAR FILTRATION RATE. ESTIMATED GFR IS NOT APPLICABLE FOR DIALYSIS PATIENTS. Compotype Operator ID - CONSUELO MCBC W/PLT COUNT & AUTO [id number] 09:17:00* Test Item Value Reference Range Interpretation Comments WHITE BLOOD CELL COUNT (BEAKER) (test code = 775) 0.4 K/ L 3.5- 10.5 LL RED BLOOD CELL COUNT (BEAKER) (test code = 761) 2.78 M/ L 3.93-5 .22 L HEMOGLOBIN (BEAKER) (test code = 410) 7.9 GM/DL 11.2-15.7 L HEMATOCRIT (BEAKER) (test code = 411) 23.4 % 34.1-44.9 L MEAN CORPUSCULAR VOLUME (BEAKER) (test code = 753) 84.2 fL 79. 4-94.8 MEAN CORPUSCULAR HEMOGLOBIN (BEAKER) (test code = 751) 28.4 pg 25.6-32.2 MEAN CORPUSCULAR HEMOGLOBIN CONC (BEAKER) (test code = 752) 33.8 GM/DL 32.2-35.5 RED CELL DISTRIBUTION WIDTH (BEAKER) (test code = 412) 17.3 % 11.7-14.4 H PLATELET COUNT (BEAKER) (test code = 756) 23 K/CU MM 150-450 L MEAN PLATELET VOLUME (BEAKER) (test code = 754) 11.0 fL 9.4-12 .3 NUCLEATED RED BLOOD CELLS (BEAKER) (test code = 413) 0 /100 WBC 0 -0 (CELLAVISION MANUAL DIFF)2019-10-06 09:17:00* Test Item Value Reference Range Interpretation Comments NEUTROPHILS - REL (CELLAVISION)(BEAKER) (test code = 2816) 2 % LYMPHOCYTES - REL (CELLAVISION)(BEAKER) (test code = 2817) 97 % MONOCYTES - REL (CELLAVISION)(BEAKER) (test code = 2818) 1 % NEUTROPHILS - ABS (CELLAVISION)(BEAKER) (test code = 2830) 0.01 K/ul 1.56-6.13 L LYMPHOCYTES - ABS (CELLAVISION)(BEAKER) (test code = 2831) 0.39 K/ul 1.18-3.74 L MONOCYTES - ABS (CELLAVISION)(BEAKER) (test code = 2832) 0.00 K/uL 0.24-0.36 L TOTAL COUNTED (BEAKER) (test code = 1351) 100 WBC MORPHOLOGY (BEAKER) (test code = 487) Normal PLT MORPHOLOGY (BEAKER) (test code = 486) Normal POLYCHROMATOPHILLIC RBCS(BEAKER) (test code = 478) 1+ few HYPOCHROMIA (BEAKER) (test code = 963) 1+ few PLATELET CONCENTRATION (CELLAVISION)(BEAKER) (test code = 3438) Dec reased Compotype Operator ID - [id number] ID - Nguyen Drake comments: Slide comments: BASIC METABOLIC [id number] 06:00:00* Test Item Value Reference Range Interpretation Comments SODIUM (BEAKER) (test code = 381) 138 meq/L 136-145 POTASSIUM (BEAKER) (test code = 379) 3.9 meq/L 3.5-5.1 CHLORIDE (BEAKER) (test code = 382) 107 meq/L 98-107 CO2 (BEAKER) (test code = 355) 25 meq/L 22-29 BLOOD UREA NITROGEN (BEAKER) (test code = 354) 12 mg/dL 7-21 CREATININE (BEAKER) (test code = 358) 0.58 mg/dL 0.57-1.25 GLUCOSE RANDOM (BEAKER) (test code = 652) 85 mg/dL 70-105 CALCIUM (BEAKER) (test code = 697) 8.2 mg/dL 8.4-10.2 L EGFR (BEAKER) (test code = 1092) 106 mL/min/1.73 sq m ESTIMATED GFR IS NOT ACCURATE CREATININE CLEARANCE IN PREDICTING GLOMERULAR FILTRATION RATE. ESTIMATED GFR IS NOT APPLICABLE FOR DIALYSIS PATIENTS. Compotype Operator ID - PIAYA LVANCOMYCIN LEVEL, [id number] 16:01:00* Test Item Value Reference Range Interpretation Comments VANCOMYCIN TROUGH (BEAKER) (test code = 522) 9.5 ug/mL 10.0-20.0 L Compotype Operator ID - BSBLOOD [id number] 13:00:00* Test Item Value Reference Range Interpretation Comments CULTURE (BEAKER) (test code = 1095) No growth in 5 days BLOOD [id number] 13:00:00* Test Item Value Reference Range Interpretation Comments CULTURE (BEAKER) (test code = 1095) No growth in 5 days CBC W/PLT COUNT & AUTO [id number] 12:30:00* Test Item Value Reference Range Interpretation Comments WHITE BLOOD CELL COUNT (BEAKER) (test code = 775) 0.3 K/ L 3.5- 10.5 LL RED BLOOD CELL COUNT (BEAKER) (test code = 761) 3.34 M/ L 3.93-5 .22 L HEMOGLOBIN (BEAKER) (test code = 410) 9.3 GM/DL 11.2-15.7 L HEMATOCRIT (BEAKER) (test code = 411) 27.7 % 34.1-44.9 L MEAN CORPUSCULAR VOLUME (BEAKER) (test code = 753) 82.9 fL 79. 4-94.8 MEAN CORPUSCULAR HEMOGLOBIN (BEAKER) (test code = 751) 27.8 pg 25.6-32.2 MEAN CORPUSCULAR HEMOGLOBIN CONC (BEAKER) (test code = 752) 33.6 GM/DL 32.2-35.5 RED CELL DISTRIBUTION WIDTH (BEAKER) (test code = 412) 17.4 % 11.7-14.4 H PLATELET COUNT (BEAKER) (test code = 756) 41 K/CU MM 150-450 L Discordant PLT result compared to previous result; clinical correlation required. MEAN PLATELET VOLUME (BEAKER) (test code = 754) 9.8 fL 9.4-12 .3 NUCLEATED RED BLOOD CELLS (BEAKER) (test code = 413) 0 /100 WBC 0 -0 (MANUAL DIFFERENTIAL)2019-10-05 12:30:00* Test Item Value Reference Range Interpretation Comments NEUTROPHILS - REL (DIFF) (BEAKER) (test code = 1359) 0 % LYMPHOCYTES - REL (DIFF) (BEAKER) (test code = 1360) 98 % MONOCYTES - REL (DIFF) (BEAKER) (test code = 1361) 1 % EOSINOPHILS - REL (DIFF) (BEAKER) (test code = 1362) 0 % BASOPHILS - REL (DIFF) (BEAKER) (test code = 1363) 0 % ATYPICAL LYMPHOCYTE - REL (DIFF) (BEAKER) (test code = 260) 1 % 0-0 H NEUTROPHILS - ABS (DIFF) (BEAKER) (test code = 1365) 0.00 K/ L 1 .80-8.00 L LYMPHOCYTES - ABS (DIFF) (BEAKER) (test code = 1366) 0.29 K/ L 1 .48-4.50 L MONOCYTES - ABS (DIFF) (BEAKER) (test code = 1367) 0.00 K/ L 0.0 0-1.30 EOSINOPHILS - ABS (DIFF) (BEAKER) (test code = 1368) 0.00 K/ L 0 .00-0.50 BASOPHILS - ABS (DIFF) (BEAKER) (test code = 1369) 0.00 K/ L 0.0 0-0.20 ATYPICAL LYMPHOCYTES - ABS (DIFF) (BEAKER) (test code = 263) 0.00 K/ L 0.00-0.00 TOTAL COUNTED (BEAKER) (test code = 1351) 100 WBC MORPHOLOGY (BEAKER) (test code = 487) Normal PLT MORPHOLOGY (BEAKER) (test code = 486) Normal RBC MORPHOLOGY (BEAKER) (test code = 762) Normal BASIC METABOLIC [id number] 05:38:00* Test Item Value Reference Range Interpretation Comments SODIUM (BEAKER) (test code = 381) 139 meq/L 136-145 POTASSIUM (BEAKER) (test code = 379) 3.4 meq/L 3.5-5.1 L CHLORIDE (BEAKER) (test code = 382) 107 meq/L 98-107 CO2 (BEAKER) (test code = 355) 26 meq/L 22-29 BLOOD UREA NITROGEN (BEAKER) (test code = 354) 8 mg/dL 7-21 CREATININE (BEAKER) (test code = 358) 0.55 mg/dL 0.57-1.25 L GLUCOSE RANDOM (BEAKER) (test code = 652) 99 mg/dL 70-105 CALCIUM (BEAKER) (test code = 697) 8.6 mg/dL 8.4-10.2 EGFR (BEAKER) (test code = 1092) 113 mL/min/1.73 sq m ESTIMATED GFR IS NOT ACCURATE CREATININE CLEARANCE IN PREDICTING GLOMERULAR FILTRATION RATE. ESTIMATED GFR IS NOT APPLICABLE FOR DIALYSIS PATIENTS. Compotype Operator ID - TALIB WCBC W/PLT COUNT & AUTO [id number] 10:29:00* Test Item Value Reference Range Interpretation Comments WHITE BLOOD CELL COUNT (BEAKER) (test code = 775) 0.3 K/ L 3.5- 10.5 LL RED BLOOD CELL COUNT (BEAKER) (test code = 761) 3.14 M/ L 3.93-5 .22 L HEMOGLOBIN (BEAKER) (test code = 410) 8.8 GM/DL 11.2-15.7 L HEMATOCRIT (BEAKER) (test code = 411) 26.1 % 34.1-44.9 L MEAN CORPUSCULAR VOLUME (BEAKER) (test code = 753) 83.1 fL 79. 4-94.8 MEAN CORPUSCULAR HEMOGLOBIN (BEAKER) (test code = 751) 28.0 pg 25.6-32.2 MEAN CORPUSCULAR HEMOGLOBIN CONC (BEAKER) (test code = 752) 33.7 GM/DL 32.2-35.5 RED CELL DISTRIBUTION WIDTH (BEAKER) (test code = 412) 17.8 % 11.7-14.4 H PLATELET COUNT (BEAKER) (test code = 756) 8 K/CU MM 150-450 LL MEAN PLATELET VOLUME (BEAKER) (test code = 754) Unable to report due to abnormal Platelet population distribution. NUCLEATED RED BLOOD CELLS (BEAKER) (test code = 413) 0 /100 WBC 0 -0 (CELLAVISION MANUAL DIFF)2019-10-04 10:29:00* Test Item Value Reference Range Interpretation Comments LYMPHOCYTES - REL (CELLAVISION)(BEAKER) (test code = 2817) 97 % ATYPICAL LYMPHOCYTES - REL (CELLAVISION)(BEAKER) (test code = 2829) 3 % 0-0 H LYMPHOCYTES - ABS (CELLAVISION)(BEAKER) (test code = 2831) 0.29 K/ul 1.18-3.74 L ATYPICAL LYMPHOCYTES - ABS (CELLAVISION)(BEAKER) (test code = 2858) 0.01 K/uL 0.00-0.00 H TOTAL COUNTED (BEAKER) (test code = 1351) 100 WBC MORPHOLOGY (BEAKER) (test code = 487) Normal PLT MORPHOLOGY (BEAKER) (test code = 486) Normal ANISOCYTOSIS (BEAKER) (test code = 961) 1+ few PLATELET CONCENTRATION (CELLAVISION)(BEAKER) (test code = 3438) Dec reased Compotype Operator ID - [id number] ID - Palak Ositoamrita comments: Slide comments: WBC: Cell d ifferential performed on buffy coatBASIC METABOLIC [id number] 06:57:00* Test Item Value Reference Range Interpretation Comments SODIUM (BEAKER) (test code = 381) 136 meq/L 136-145 POTASSIUM (BEAKER) (test code = 379) 3.6 meq/L 3.5-5.1 Specimen slightly hemolyzed CHLORIDE (BEAKER) (test code = 382) 107 meq/L 98-107 CO2 (BEAKER) (test code = 355) 23 meq/L 22-29 BLOOD UREA NITROGEN (BEAKER) (test code = 354) 7 mg/dL 7-21 CREATININE (BEAKER) (test code = 358) 0.58 mg/dL 0.57-1.25 Specimen slightly hemolyzed GLUCOSE RANDOM (BEAKER) (test code = 652) 80 mg/dL 70-105 CALCIUM (BEAKER) (test code = 697) 8.0 mg/dL 8.4-10.2 L EGFR (BEAKER) (test code = 1092) 106 mL/min/1.73 sq m ESTIMATED GFR IS NOT ACCURATE CREATININE CLEARANCE IN PREDICTING GLOMERULAR FILTRATION RATE. ESTIMATED GFR IS NOT APPLICABLE FOR DIALYSIS PATIENTS. Compotype Operator HUNG MAYERS WCBC W/PLT COUNT & AUTO [id number] 11:33:00* Test Item Value Reference Range Interpretation Comments WHITE BLOOD CELL COUNT (BEAKER) (test code = 775) 0.2 K/ L 3.5- 10.5 LL RED BLOOD CELL COUNT (BEAKER) (test code = 761) 3.26 M/ L 3.93-5 .22 L HEMOGLOBIN (BEAKER) (test code = 410) 9.1 GM/DL 11.2-15.7 L HEMATOCRIT (BEAKER) (test code = 411) 26.9 % 34.1-44.9 L MEAN CORPUSCULAR VOLUME (BEAKER) (test code = 753) 82.5 fL 79. 4-94.8 Discordant MCV result compared to previous result; clinical correlation required. MEAN CORPUSCULAR HEMOGLOBIN (BEAKER) (test code = 751) 27.9 pg 25.6-32.2 MEAN CORPUSCULAR HEMOGLOBIN CONC (BEAKER) (test code = 752) 33.8 GM/DL 32.2-35.5 RED CELL DISTRIBUTION WIDTH (BEAKER) (test code = 412) 18.0 % 11.7-14.4 H PLATELET COUNT (BEAKER) (test code = 756) 17 K/CU MM 150-450 L MEAN PLATELET VOLUME (BEAKER) (test code = 754) Unable to report due to abnormal Platelet population distribution. NUCLEATED RED BLOOD CELLS (BEAKER) (test code = 413) 0 /100 WBC 0 -0 (CELLAVISION MANUAL DIFF)2019-10-03 11:33:00* Test Item Value Reference Range Interpretation Comments LYMPHOCYTES - REL (CELLAVISION)(BEAKER) (test code = 2817) 99 % ATYPICAL LYMPHOCYTES - REL (CELLAVISION)(BEAKER) (test code = 2829) 1 % 0-0 H LYMPHOCYTES - ABS (CELLAVISION)(BEAKER) (test code = 2831) 0.20 K/ul 1.18-3.74 L ATYPICAL LYMPHOCYTES - ABS (CELLAVISION)(BEAKER) (test code = 2858) 0.00 K/uL 0.00-0.00 TOTAL COUNTED (BEAKER) (test code = 1351) 100 WBC MORPHOLOGY (BEAKER) (test code = 487) Normal PLT MORPHOLOGY (BEAKER) (test code = 486) Normal ANISOCYTOSIS (BEAKER) (test code = 961) 1+ few PLATELET CONCENTRATION (CELLAVISION)(BEAKER) (test code = 3438) Dec reased Compotype Operator ID - [id number] ID - Palak Engle comments: Slide comments: WBC: Cell d ifferential performed on buffy coat smearBASI METABOLIC [id number] 06:16:00* Test Item Value Reference Range Interpretation Comments SODIUM (BEAKER) (test code = 381) 135 meq/L 136-145 L POTASSIUM (BEAKER) (test code = 379) 3.6 meq/L 3.5-5.1 CHLORIDE (BEAKER) (test code = 382) 108 meq/L 98-107 H CO2 (BEAKER) (test code = 355) 23 meq/L 22-29 BLOOD UREA NITROGEN (BEAKER) (test code = 354) 6 mg/dL 7-21 L CREATININE (BEAKER) (test code = 358) 0.52 mg/dL 0.57-1.25 L GLUCOSE RANDOM (BEAKER) (test code = 652) 83 mg/dL 70-105 CALCIUM (BEAKER) (test code = 697) 8.0 mg/dL 8.4-10.2 L EGFR (BEAKER) (test code = 1092) 120 mL/min/1.73 sq m ESTIMATED GFR IS NOT ACCURATE CREATININE CLEARANCE IN PREDICTING GLOMERULAR FILTRATION RATE. ESTIMATED GFR IS NOT APPLICABLE FOR DIALYSIS PATIENTS. Compotype Operator ID - CONSUELO MCBC W/PLT COUNT & AUTO [id number] 09:14:00* Test Item Value Reference Range Interpretation Comments WHITE BLOOD CELL COUNT (BEAKER) (test code = 775) 0.1 K/ L 3.5- 10.5 LL RED BLOOD CELL COUNT (BEAKER) (test code = 761) 2.39 M/ L 3.93-5 .22 L HEMOGLOBIN (BEAKER) (test code = 410) 6.9 GM/DL 11.2-15.7 L HEMATOCRIT (BEAKER) (test code = 411) 20.9 % 34.1-44.9 L MEAN CORPUSCULAR VOLUME (BEAKER) (test code = 753) 87.4 fL 79. 4-94.8 MEAN CORPUSCULAR HEMOGLOBIN (BEAKER) (test code = 751) 28.9 pg 25.6-32.2 MEAN CORPUSCULAR HEMOGLOBIN CONC (BEAKER) (test code = 752) 33.0 GM/DL 32.2-35.5 RED CELL DISTRIBUTION WIDTH (BEAKER) (test code = 412) 16.5 % 11.7-14.4 H PLATELET COUNT (BEAKER) (test code = 756) 21 K/CU MM 150-450 L Discordant PLT results compared to previous results; clinical correlation required. MEAN PLATELET VOLUME (BEAKER) (test code = 754) 10.4 fL 9.4-12 .3 NUCLEATED RED BLOOD CELLS (BEAKER) (test code = 413) 0 /100 WBC 0 -0 (CELLAVISION MANUAL DIFF)2019-10-02 09:14:00* Test Item Value Reference Range Interpretation Comments LYMPHOCYTES - REL (CELLAVISION)(BEAKER) (test code = 2817) 100 % LYMPHOCYTES - ABS (CELLAVISION)(BEAKER) (test code = 2831) 0.10 K/ul 1.18-3.74 L TOTAL COUNTED (BEAKER) (test code = 1351) 100 RBC MORPHOLOGY (BEAKER) (test code = 762) Normal WBC MORPHOLOGY (BEAKER) (test code = 487) Normal PLT MORPHOLOGY (BEAKER) (test code = 486) Normal Compotype Operator ID - [id number] 09:07:00* Test Item Value Reference Range Interpretation Comments CULTURE (BEAKER) (test code = 1095) 50-59,000 col/mL skin amandeep BASIC METABOLIC [id number] 07:23:00* Test Item Value Reference Range Interpretation Comments SODIUM (BEAKER) (test code = 381) 135 meq/L 136-145 L POTASSIUM (BEAKER) (test code = 379) 3.0 meq/L 3.5-5.1 L CHLORIDE (BEAKER) (test code = 382) 111 meq/L 98-107 H CO2 (BEAKER) (test code = 355) 20 meq/L 22-29 L BLOOD UREA NITROGEN (BEAKER) (test code = 354) 7 mg/dL 7-21 CREATININE (BEAKER) (test code = 358) 0.52 mg/dL 0.57-1.25 L GLUCOSE RANDOM (BEAKER) (test code = 652) 94 mg/dL 70-105 CALCIUM (BEAKER) (test code = 697) 7.1 mg/dL 8.4-10.2 L EGFR (BEAKER) (test code = 1092) 120 mL/min/1.73 sq m ESTIMATED GFR IS NOT ACCURATE CREATININE CLEARANCE IN PREDICTING GLOMERULAR FILTRATION RATE. ESTIMATED GFR IS NOT APPLICABLE FOR DIALYSIS PATIENTS. Compotype Operator ID - PIAYA LVANCOMYCIN LEVEL, [id number] 01:15:00* Test Item Value Reference Range Interpretation Comments VANCOMYCIN TROUGH (BEAKER) (test code = 522) 5.4 ug/mL 10.0-20.0 L Compotype Operator ID - DBCBC W/PLT COUNT & AUTO [id number] 11:41:00* Test Item Value Reference Range Interpretation Comments WHITE BLOOD CELL COUNT (BEAKER) (test code = 775) 0.1 K/ L 3.5- 10.5 LL RED BLOOD CELL COUNT (BEAKER) (test code = 761) 3.06 M/ L 3.93-5 .22 L HEMOGLOBIN (BEAKER) (test code = 410) 8.7 GM/DL 11.2-15.7 L HEMATOCRIT (BEAKER) (test code = 411) 26.6 % 34.1-44.9 L MEAN CORPUSCULAR VOLUME (BEAKER) (test code = 753) 86.9 fL 79. 4-94.8 MEAN CORPUSCULAR HEMOGLOBIN (BEAKER) (test code = 751) 28.4 pg 25.6-32.2 MEAN CORPUSCULAR HEMOGLOBIN CONC (BEAKER) (test code = 752) 32.7 GM/DL 32.2-35.5 RED CELL DISTRIBUTION WIDTH (BEAKER) (test code = 412) 16.5 % 11.7-14.4 H PLATELET COUNT (BEAKER) (test code = 756) 43 K/CU MM 150-450 L MEAN PLATELET VOLUME (BEAKER) (test code = 754) 10.9 fL 9.4-12 .3 NUCLEATED RED BLOOD CELLS (BEAKER) (test code = 413) 0 /100 WBC 0 -0 (CELLAVISION MANUAL DIFF)2019-10-01 11:41:00* Test Item Value Reference Range Interpretation Comments NEUTROPHILS - REL (CELLAVISION)(BEAKER) (test code = 2816) 1 % LYMPHOCYTES - REL (CELLAVISION)(BEAKER) (test code = 2817) 98 % MONOCYTES - REL (CELLAVISION)(BEAKER) (test code = 2818) 1 % NEUTROPHILS - ABS (CELLAVISION)(BEAKER) (test code = 2830) 0.00 K/ul 1.56-6.13 L LYMPHOCYTES - ABS (CELLAVISION)(BEAKER) (test code = 2831) 0.10 K/ul 1.18-3.74 L MONOCYTES - ABS (CELLAVISION)(BEAKER) (test code = 2832) 0.00 K/uL 0.24-0.36 L TOTAL COUNTED (BEAKER) (test code = 1351) 100 RBC MORPHOLOGY (BEAKER) (test code = 762) Normal WBC MORPHOLOGY (BEAKER) (test code = 487) Normal PLT MORPHOLOGY (BEAKER) (test code = 486) Normal Compotype Operator ID - [id number] 06:51:00* Test Item Value Reference Range Interpretation Comments MAGNESIUM (BEAKER) (test code = 627) 2.1 mg/dL 1.6-2.6 Compotype Operator ID - PIAYA LCOMPREHENSIVE METABOLIC [id number] 06:51:00* Test Item Value Reference Range Interpretation Comments TOTAL PROTEIN (BEAKER) (test code = 770) 6.1 gm/dL 6.0-8.3 ALBUMIN (BEAKER) (test code = 1145) 3.2 g/dL 3.5-5.0 L ALKALINE PHOSPHATASE (BEAKER) (test code = 346) 50 U/L 40-150 BILIRUBIN TOTAL (BEAKER) (test code = 377) 0.6 mg/dL 0.2-1.2 SODIUM (BEAKER) (test code = 381) 134 meq/L 136-145 L POTASSIUM (BEAKER) (test code = 379) 3.4 meq/L 3.5-5.1 L CHLORIDE (BEAKER) (test code = 382) 106 meq/L 98-107 CO2 (BEAKER) (test code = 355) 21 meq/L 22-29 L BLOOD UREA NITROGEN (BEAKER) (test code = 354) 6 mg/dL 7-21 L CREATININE (BEAKER) (test code = 358) 0.65 mg/dL 0.57-1.25 GLUCOSE RANDOM (BEAKER) (test code = 652) 120 mg/dL 70-105 H CALCIUM (BEAKER) (test code = 697) 8.5 mg/dL 8.4-10.2 AST (SGOT) (BEAKER) (test code = 353) 8 U/L 5-34 ALT (SGPT) (BEAKER) (test code = 347) 13 U/L 6-55 EGFR (BEAKER) (test code = 1092) 93 mL/min/1.73 sq m ESTIMATED GFR IS NOT ACCURATE CREATININE CLEARANCE IN PREDICTING GLOMERULAR FILTRATION RATE. ESTIMATED GFR IS NOT APPLICABLE FOR DIALYSIS PATIENTS. [employer] Operator ID - PIAYA LPT/[id number] 06:17:00* Test Item Value Reference Range Interpretation Comments PROTIME (BEAKER) (test code = 759) 16.8 seconds 11.9-14.2 H INR (BEAKER) (test code = 370) 1.4 <=5.9 PARTIAL THROMBOPLASTIN TIME (BEAKER) (test code = 760) 40.7 seconds 22.5-36.0 H Effective 10/25/2018: PT Reference Range ChangeNew: 11.9-14.2 Previous: 11.7-14. 7RECOMMENDED COUMADIN/WARFARIN INR THERAPY RANGESSTANDARD DOSE: 2.0-3.0 Include s: PROPHYLAXIS for venous thrombosis, systemic embolization; TREATMENT for venou s thrombosis and/or pulmonary embolus.HIGH RISK: Target INR is 2.5-3.5 for patie nts wiht mechanical heart valves.CT, [id number] 17:20:00FINAL REPORT TECHNIQUE: CT of the abdomen and pelvis WITH intravenous contrast and WITHOUT oral contrast. Dose modulation, iterative reconstruction, and/or weight-based adjustment of the mA/kV was utilized to reduce the radiation dose to as low as reasonably achievable. INDICATION: 59-year-old woman with neutropenic fever, abdominal pain, and vomiting. COMPARISON: None. FINDINGS: LOWER THORAX: Unremarkable. HEPATOBILIARY: 0.3 cm hypodensity in segment of the liver is too small to characterize, but is likely a benign entity such as a cyst. Gallbladder is unremarkable. No biliary ductal dilatation.SPLEEN: No splenomegaly.PANCREAS: No focal masses or ductal dilatation. ADRENALS: No adren al nodules.KIDNEYS/URETERS: No hydronephrosis, stones, or solid mass lesions.PEL CHIQUIS ORGANS/BLADDER: Bladder is distended. Questionable 1.3 x 1.1 cm uterine fibr oid in the left fundus. No adnexal mass. PERITONEUM/RETROPERITONEUM: No free air or fluid.LYMPH NODES: No lymphadenopathy.VESSELS: Unremarkable. GI TRACT: No di stention or wall thickening. Normal appendix. BONES AND SOFT TISSUES: Subcentime ter sclerotic focus in the right sacral ala, likely a bone island. Tiny fat-cont aining umbilical hernia. IMPRESSION:No acute abnormalities in the abdomen or pe lvis. Nonspecific distention of the bladder. Signed: Vangie Lopezeport Nubia rified Date/Time: 09/30/2019 17:20:20 Reading Location: [facility] C013Y CT Body Re ading Room 0 5:20 PM RAD, CHEST, 1 VIEW, NON [id number] 11:04:00Reason for exam:-> feverShould this be performed at the bedside?->YesFINAL REPORT Chest, 1 view, 09/30/2019 10:54 AM. History: Fever. Comparison: 09/14/2019. Discussion: The cardiomediastinal silhouette and pulmonary vasculature are within normal limits for a portable exam. The lungs are clear without evidence of consolidation or effusion. Right upper extremity PICC is present terminating near the proximal SVC. The soft tissues and osseous st ructures are intact. IMPRESSION: No acute cardiopulmonary abnormality. Signed: Balbir Joneseport Verified Date/Time: 09/30/2019 11:04:15 Reading Locatio n: [facility] B1 C013X Ortho Consult Reading Room W/PLT COUNT & AUTO DIFFERENTIAL 2019-09-30 11:01:00* Test Item Value Reference Range Interpretation Comments WHITE BLOOD CELL COUNT (BEAKER) (test code = 775) 0.1 K/ L 3.5- 10.5 LL RED BLOOD CELL COUNT (BEAKER) (test code = 761) 2.94 M/ L 3.93-5 .22 L HEMOGLOBIN (BEAKER) (test code = 410) 8.6 GM/DL 11.2-15.7 L HEMATOCRIT (BEAKER) (test code = 411) 25.4 % 34.1-44.9 L MEAN CORPUSCULAR VOLUME (BEAKER) (test code = 753) 86.4 fL 79. 4-94.8 MEAN CORPUSCULAR HEMOGLOBIN (BEAKER) (test code = 751) 29.3 pg 25.6-32.2 MEAN CORPUSCULAR HEMOGLOBIN CONC (BEAKER) (test code = 752) 33.9 GM/DL 32.2-35.5 RED CELL DISTRIBUTION WIDTH (BEAKER) (test code = 412) 16.3 % 11.7-14.4 H PLATELET COUNT (BEAKER) (test code = 756) 67 K/CU MM 150-450 L MEAN PLATELET VOLUME (BEAKER) (test code = 754) 10.2 fL 9.4-12 .3 NUCLEATED RED BLOOD CELLS (BEAKER) (test code = 413) 0 /100 WBC 0 -0 (CELLAVISION MANUAL DIFF)2019-09-30 11:01:00* Test Item Value Reference Range Interpretation Comments NEUTROPHILS - REL (CELLAVISION)(BEAKER) (test code = 2816) 2 % LYMPHOCYTES - REL (CELLAVISION)(BEAKER) (test code = 2817) 92 % MONOCYTES - REL (CELLAVISION)(BEAKER) (test code = 2818) 6 % NEUTROPHILS - ABS (CELLAVISION)(BEAKER) (test code = 2830) 0.00 K/ul 1.56-6.13 L LYMPHOCYTES - ABS (CELLAVISION)(BEAKER) (test code = 2831) 0.09 K/ul 1.18-3.74 L MONOCYTES - ABS (CELLAVISION)(BEAKER) (test code = 2832) 0.01 K/uL 0.24-0.36 L TOTAL COUNTED (BEAKER) (test code = 1351) 100 WBC MORPHOLOGY (BEAKER) (test code = 487) Normal PLT MORPHOLOGY (BEAKER) (test code = 486) Normal POLYCHROMATOPHILLIC RBCS(BEAKER) (test code = 478) 1+ few HYPOCHROMIA (BEAKER) (test code = 963) 1+ few ANISOCYTOSIS (BEAKER) (test code = 961) 1+ few POIKILOCYTES (BEAKER) (test code = 966) 1+ few SPHEROCYTES (BEAKER) (test code = 768) 1+ few ELLIPTOCYTES (BEAKER) (test code = 962) 1+ few OVALOCYTES (BEAKER) (test code = 477) 1+ few Compotype Operator ID - [id number] METABOLIC [id number] 06:41:00* Test Item Value Reference Range Interpretation Comments SODIUM (BEAKER) (test code = 381) 133 meq/L 136-145 L POTASSIUM (BEAKER) (test code = 379) 3.3 meq/L 3.5-5.1 L CHLORIDE (BEAKER) (test code = 382) 104 meq/L 98-107 CO2 (BEAKER) (test code = 355) 22 meq/L 22-29 BLOOD UREA NITROGEN (BEAKER) (test code = 354) 6 mg/dL 7-21 L CREATININE (BEAKER) (test code = 358) 0.61 mg/dL 0.57-1.25 GLUCOSE RANDOM (BEAKER) (test code = 652) 130 mg/dL 70-105 H CALCIUM (BEAKER) (test code = 697) 7.8 mg/dL 8.4-10.2 L EGFR (BEAKER) (test code = 1092) 100 mL/min/1.73 sq m ESTIMATED GFR IS NOT ACCURATE CREATININE CLEARANCE IN PREDICTING GLOMERULAR FILTRATION RATE. ESTIMATED GFR IS NOT APPLICABLE FOR DIALYSIS PATIENTS. Compotype Operator ID - PIAYA LCBC W/PLT COUNT & AUTO [id number] 08:38:00* Test Item Value Reference Range Interpretation Comments WHITE BLOOD CELL COUNT (BEAKER) (test code = 775) 0.3 K/ L 3.5- 10.5 LL RED BLOOD CELL COUNT (BEAKER) (test code = 761) 3.32 M/ L 3.93-5 .22 L HEMOGLOBIN (BEAKER) (test code = 410) 9.6 GM/DL 11.2-15.7 L HEMATOCRIT (BEAKER) (test code = 411) 28.2 % 34.1-44.9 L MEAN CORPUSCULAR VOLUME (BEAKER) (test code = 753) 84.9 fL 79. 4-94.8 MEAN CORPUSCULAR HEMOGLOBIN (BEAKER) (test code = 751) 28.9 pg 25.6-32.2 MEAN CORPUSCULAR HEMOGLOBIN CONC (BEAKER) (test code = 752) 34.0 GM/DL 32.2-35.5 RED CELL DISTRIBUTION WIDTH (BEAKER) (test code = 412) 16.0 % 11.7-14.4 H PLATELET COUNT (BEAKER) (test code = 756) 6 K/CU MM 150-450 LL MEAN PLATELET VOLUME (BEAKER) (test code = 754) Unable to report due to abnormal plt population distribution NUCLEATED RED BLOOD CELLS (BEAKER) (test code = 413) 0 /100 WBC 0 -0 (MANUAL DIFFERENTIAL)2019-09-29 08:38:00* Test Item Value Reference Range Interpretation Comments NEUTROPHILS - REL (DIFF) (BEAKER) (test code = 1359) 3 % LYMPHOCYTES - REL (DIFF) (BEAKER) (test code = 1360) 95 % MONOCYTES - REL (DIFF) (BEAKER) (test code = 1361) 2 % NEUTROPHILS - ABS (DIFF) (BEAKER) (test code = 1365) 0.01 K/ L 1 .80-8.00 L LYMPHOCYTES - ABS (DIFF) (BEAKER) (test code = 1366) 0.29 K/ L 1 .48-4.50 L MONOCYTES - ABS (DIFF) (BEAKER) (test code = 1367) 0.01 K/ L 0.0 0-1.30 TOTAL COUNTED (BEAKER) (test code = 1351) 100 WBC MORPHOLOGY (BEAKER) (test code = 487) Normal PLT MORPHOLOGY (BEAKER) (test code = 486) Normal ANISOCYTOSIS (BEAKER) (test code = 961) 1+ few HYPOCHROMIA (BEAKER) (test code = 963) 1+ few MACROCYTES (BEAKER) (test code = 964) 1+ few OVALOCYTES (BEAKER) (test code = 477) 1+ few POIKILOCYTES (BEAKER) (test code = 966) 1+ few BASIC METABOLIC [id number] 06:20:00* Test Item Value Reference Range Interpretation Comments SODIUM (BEAKER) (test code = 381) 133 meq/L 136-145 L POTASSIUM (BEAKER) (test code = 379) 3.9 meq/L 3.5-5.1 CHLORIDE (BEAKER) (test code = 382) 101 meq/L 98-107 CO2 (BEAKER) (test code = 355) 27 meq/L 22-29 BLOOD UREA NITROGEN (BEAKER) (test code = 354) 12 mg/dL 7-21 CREATININE (BEAKER) (test code = 358) 0.62 mg/dL 0.57-1.25 GLUCOSE RANDOM (BEAKER) (test code = 652) 100 mg/dL 70-105 CALCIUM (BEAKER) (test code = 697) 8.2 mg/dL 8.4-10.2 L EGFR (BEAKER) (test code = 1092) 98 mL/min/1.73 sq m ESTIMATED GFR IS NOT ACCURATE CREATININE CLEARANCE IN PREDICTING GLOMERULAR FILTRATION RATE. ESTIMATED GFR IS NOT APPLICABLE FOR DIALYSIS PATIENTS. Compotype Operator ID - PIAYA LCBC W/PLT COUNT & AUTO [id number] 09:32:00* Test Item Value Reference Range Interpretation Comments WHITE BLOOD CELL COUNT (BEAKER) (test code = 775) 0.6 K/ L 3.5- 10.5 LL RED BLOOD CELL COUNT (BEAKER) (test code = 761) 3.28 M/ L 3.93-5 .22 L HEMOGLOBIN (BEAKER) (test code = 410) 9.5 GM/DL 11.2-15.7 L HEMATOCRIT (BEAKER) (test code = 411) 28.2 % 34.1-44.9 L MEAN CORPUSCULAR VOLUME (BEAKER) (test code = 753) 86.0 fL 79. 4-94.8 MEAN CORPUSCULAR HEMOGLOBIN (BEAKER) (test code = 751) 29.0 pg 25.6-32.2 MEAN CORPUSCULAR HEMOGLOBIN CONC (BEAKER) (test code = 752) 33.7 GM/DL 32.2-35.5 RED CELL DISTRIBUTION WIDTH (BEAKER) (test code = 412) 16.3 % 11.7-14.4 H PLATELET COUNT (BEAKER) (test code = 756) 16 K/CU MM 150-450 L MEAN PLATELET VOLUME (BEAKER) (test code = 754) Unable to report due to abnormal Platelet population distribution. NUCLEATED RED BLOOD CELLS (BEAKER) (test code = 413) 0 /100 WBC 0 -0 (CELLAVISION MANUAL DIFF)2019-09-28 09:32:00* Test Item Value Reference Range Interpretation Comments NEUTROPHILS - REL (CELLAVISION)(BEAKER) (test code = 2816) 17 % LYMPHOCYTES - REL (CELLAVISION)(BEAKER) (test code = 2817) 80 % ATYPICAL LYMPHOCYTES - REL (CELLAVISION)(BEAKER) (test code = 2829) 3 % 0-0 H NEUTROPHILS - ABS (CELLAVISION)(BEAKER) (test code = 2830) 0.10 K/ul 1.56-6.13 L LYMPHOCYTES - ABS (CELLAVISION)(BEAKER) (test code = 2831) 0.48 K/ul 1.18-3.74 L ATYPICAL LYMPHOCYTES - ABS (CELLAVISION)(BEAKER) (test code = 2858) 0.02 K/uL 0.00-0.00 H TOTAL COUNTED (BEAKER) (test code = 1351) 100 WBC MORPHOLOGY (BEAKER) (test code = 487) Normal PLT MORPHOLOGY (BEAKER) (test code = 486) Normal POLYCHROMATOPHILLIC RBCS(BEAKER) (test code = 478) 1+ few HYPOCHROMIA (BEAKER) (test code = 963) 1+ few ARTIFACT (CELLAVISION)(BEAKER) (test code = 3432) Present PLATELET CONCENTRATION (CELLAVISION)(BEAKER) (test code = 3438) Dec reased Compotype Operator ID - [id number] ID - Nguyen Drake comments: Slide comments: BASIC METABOLIC [id number] 06:44:00* Test Item Value Reference Range Interpretation Comments SODIUM (BEAKER) (test code = 381) 136 meq/L 136-145 POTASSIUM (BEAKER) (test code = 379) 3.6 meq/L 3.5-5.1 CHLORIDE (BEAKER) (test code = 382) 105 meq/L 98-107 CO2 (BEAKER) (test code = 355) 25 meq/L 22-29 BLOOD UREA NITROGEN (BEAKER) (test code = 354) 15 mg/dL 7-21 CREATININE (BEAKER) (test code = 358) 0.63 mg/dL 0.57-1.25 GLUCOSE RANDOM (BEAKER) (test code = 652) 87 mg/dL 70-105 CALCIUM (BEAKER) (test code = 697) 7.9 mg/dL 8.4-10.2 L EGFR (BEAKER) (test code = 1092) 96 mL/min/1.73 sq m ESTIMATED GFR IS NOT ACCURATE CREATININE CLEARANCE IN PREDICTING GLOMERULAR FILTRATION RATE. ESTIMATED GFR IS NOT APPLICABLE FOR DIALYSIS PATIENTS. Compotype Operator ID - EMERSONCBC W/PLT COUNT & AUTO [id number] 12:39:00* Test Item Value Reference Range Interpretation Comments WHITE BLOOD CELL COUNT (BEAKER) (test code = 775) 0.4 K/ L 3.5- 10.5 LL RED BLOOD CELL COUNT (BEAKER) (test code = 761) 3.26 M/ L 3.93-5 .22 L HEMOGLOBIN (BEAKER) (test code = 410) 9.5 GM/DL 11.2-15.7 L HEMATOCRIT (BEAKER) (test code = 411) 28.1 % 34.1-44.9 L MEAN CORPUSCULAR VOLUME (BEAKER) (test code = 753) 86.2 fL 79. 4-94.8 MEAN CORPUSCULAR HEMOGLOBIN (BEAKER) (test code = 751) 29.1 pg 25.6-32.2 MEAN CORPUSCULAR HEMOGLOBIN CONC (BEAKER) (test code = 752) 33.8 GM/DL 32.2-35.5 RED CELL DISTRIBUTION WIDTH (BEAKER) (test code = 412) 16.4 % 11.7-14.4 H PLATELET COUNT (BEAKER) (test code = 756) 20 K/CU MM 150-450 L MEAN PLATELET VOLUME (BEAKER) (test code = 754) 9.6 fL 9.4-12 .3 NUCLEATED RED BLOOD CELLS (BEAKER) (test code = 413) 0 /100 WBC 0 -0 (CELLAVISION MANUAL DIFF)2019-09-27 12:39:00* Test Item Value Reference Range Interpretation Comments NEUTROPHILS - REL (CELLAVISION)(BEAKER) (test code = 2816) 22 % LYMPHOCYTES - REL (CELLAVISION)(BEAKER) (test code = 2817) 76 % EOSINOPHILS - REL (CELLAVISION)(BEAKER) (test code = 2819) 1 % BANDS - REL (CELLAVISION)(BEAKER) (test code = 2826) 1 % 0 -10 NEUTROPHILS - ABS (CELLAVISION)(BEAKER) (test code = 2830) 0.09 K/ul 1.56-6.13 L LYMPHOCYTES - ABS (CELLAVISION)(BEAKER) (test code = 2831) 0.30 K/ul 1.18-3.74 L EOSINOPHILS - ABS (CELLAVISION)(BEAKER) (test code = 2834) 0.00 K/uL 0.04-0.36 L BANDS - ABS (CELLAVISION)(BEAKER) (test code = 2840) 0.00 K/uL 0 .00-0.80 TOTAL COUNTED (BEAKER) (test code = 1351) 100 RBC MORPHOLOGY (BEAKER) (test code = 762) Normal WBC MORPHOLOGY (BEAKER) (test code = 487) Normal PLT MORPHOLOGY (BEAKER) (test code = 486) Normal Compotype Operator ID - [id number] METABOLIC [id number] 06:44:00* Test Item Value Reference Range Interpretation Comments SODIUM (BEAKER) (test code = 381) 137 meq/L 136-145 POTASSIUM (BEAKER) (test code = 379) 3.9 meq/L 3.5-5.1 CHLORIDE (BEAKER) (test code = 382) 106 meq/L 98-107 CO2 (BEAKER) (test code = 355) 27 meq/L 22-29 BLOOD UREA NITROGEN (BEAKER) (test code = 354) 17 mg/dL 7-21 CREATININE (BEAKER) (test code = 358) 0.66 mg/dL 0.57-1.25 GLUCOSE RANDOM (BEAKER) (test code = 652) 134 mg/dL 70-105 H CALCIUM (BEAKER) (test code = 697) 8.1 mg/dL 8.4-10.2 L EGFR (BEAKER) (test code = 1092) 91 mL/min/1.73 sq m ESTIMATED GFR IS NOT ACCURATE CREATININE CLEARANCE IN PREDICTING GLOMERULAR FILTRATION RATE. ESTIMATED GFR IS NOT APPLICABLE FOR DIALYSIS PATIENTS. Compotype Operator ID - LACBC W/PLT COUNT & AUTO [id number] 11:21:00* Test Item Value Reference Range Interpretation Comments WHITE BLOOD CELL COUNT (BEAKER) (test code = 775) 0.4 K/ L 3.5- 10.5 LL RED BLOOD CELL COUNT (BEAKER) (test code = 761) 2.33 M/ L 3.93-5 .22 L HEMOGLOBIN (BEAKER) (test code = 410) 6.8 GM/DL 11.2-15.7 L HEMATOCRIT (BEAKER) (test code = 411) 20.1 % 34.1-44.9 L MEAN CORPUSCULAR VOLUME (BEAKER) (test code = 753) 86.3 fL 79. 4-94.8 MEAN CORPUSCULAR HEMOGLOBIN (BEAKER) (test code = 751) 29.2 pg 25.6-32.2 MEAN CORPUSCULAR HEMOGLOBIN CONC (BEAKER) (test code = 752) 33.8 GM/DL 32.2-35.5 RED CELL DISTRIBUTION WIDTH (BEAKER) (test code = 412) 17.0 % 11.7-14.4 H PLATELET COUNT (BEAKER) (test code = 756) 32 K/CU MM 150-450 L MEAN PLATELET VOLUME (BEAKER) (test code = 754) Unable to report due to abnormal Platelet population distribution. NUCLEATED RED BLOOD CELLS (BEAKER) (test code = 413) 0 /100 WBC 0 -0 (CELLAVISION MANUAL DIFF)2019-09-26 11:21:00* Test Item Value Reference Range Interpretation Comments NEUTROPHILS - REL (CELLAVISION)(BEAKER) (test code = 2816) 41 % LYMPHOCYTES - REL (CELLAVISION)(BEAKER) (test code = 2817) 55 % MONOCYTES - REL (CELLAVISION)(BEAKER) (test code = 2818) 2 % METAMYELOCYTES - REL (CELLAVISION)(BEAKER) (test code = 2821) 1 % 0-0 H MYELOCYTES - REL (CELLAVISION)(BEAKER) (test code = 2822) 1 % 0-0 H NEUTROPHILS - ABS (CELLAVISION)(BEAKER) (test code = 2830) 0.16 K/ul 1.56-6.13 L LYMPHOCYTES - ABS (CELLAVISION)(BEAKER) (test code = 2831) 0.22 K/ul 1.18-3.74 L MONOCYTES - ABS (CELLAVISION)(BEAKER) (test code = 2832) 0.01 K/uL 0.24-0.36 L METAMYELOCYTES - ABS (CELLAVISION)(BEAKER) (test code = 2836 ) 0.00 K/uL 0.00-0.00 MYELOCYTES-ABS (CELLAVISION)(BEAKER) (test code = 2837) 0.00 K/uL 0.00-0.00 TOTAL COUNTED (BEAKER) (test code = 1351) 100 PLT MORPHOLOGY (BEAKER) (test code = 486) Normal HYPERSEGMENTATION (CELLAVISION)(BEAKER) (test code = 3445) Present ANISOCYTOSIS (BEAKER) (test code = 961) 1+ few MICROCYTES (BEAKER) (test code = 965) 1+ few POIKILOCYTES (BEAKER) (test code = 966) 1+ few SCHISTOCYTES (BEAKER) (test code = 765) 1+ few ELLIPTOCYTES (BEAKER) (test code = 962) 1+ few OVALOCYTES (BEAKER) (test code = 477) 1+ few PLATELET CONCENTRATION (CELLAVISION)(BEAKER) (test code = 3438) Dec reased Compotype Operator ID - [id number] differential done on buffy coat smearURIC [id number] 06:03:00* Test Item Value Reference Range Interpretation Comments URIC ACID (BEAKER) (test code = 773) 1.9 mg/dL 2.6-7.2 L Compotype Operator ID - LABASIC METABOLIC [id number] 06:03:00* Test Item Value Reference Range Interpretation Comments SODIUM (BEAKER) (test code = 381) 138 meq/L 136-145 POTASSIUM (BEAKER) (test code = 379) 3.7 meq/L 3.5-5.1 CHLORIDE (BEAKER) (test code = 382) 111 meq/L 98-107 H CO2 (BEAKER) (test code = 355) 23 meq/L 22-29 BLOOD UREA NITROGEN (BEAKER) (test code = 354) 17 mg/dL 7-21 CREATININE (BEAKER) (test code = 358) 0.62 mg/dL 0.57-1.25 GLUCOSE RANDOM (BEAKER) (test code = 652) 122 mg/dL 70-105 H CALCIUM (BEAKER) (test code = 697) 7.3 mg/dL 8.4-10.2 L EGFR (BEAKER) (test code = 1092) 98 mL/min/1.73 sq m ESTIMATED GFR IS NOT ACCURATE CREATININE CLEARANCE IN PREDICTING GLOMERULAR FILTRATION RATE. ESTIMATED GFR IS NOT APPLICABLE FOR DIALYSIS PATIENTS. Compotype Operator ID - LALactate dehydrogenase (LDH)2019-09-26 06:01:00* Test Item Value Reference Range Interpretation Comments LDH (test code = 2532-0) 206 U/L 125-220 KO (test code = KO) Compotype Operator ID - LA Lab Interpretation (test code = 72282-7) [facility]26 06:01:00* Test Item Value Reference Range Interpretation Comments LACTATE DEHYDROGENASE (BEAKER) (test code = 635) 206 U/L 125-2 20 Compotype Operator ID - LACBC W/PLT COUNT & AUTO [id number] 10:30:00* Test Item Value Reference Range Interpretation Comments WHITE BLOOD CELL COUNT (BEAKER) (test code = 775) 0.7 K/ L 3.5- 10.5 LL RED BLOOD CELL COUNT (BEAKER) (test code = 761) 2.77 M/ L 3.93-5 .22 L HEMOGLOBIN (BEAKER) (test code = 410) 8.1 GM/DL 11.2-15.7 L HEMATOCRIT (BEAKER) (test code = 411) 24.4 % 34.1-44.9 L MEAN CORPUSCULAR VOLUME (BEAKER) (test code = 753) 88.1 fL 79. 4-94.8 MEAN CORPUSCULAR HEMOGLOBIN (BEAKER) (test code = 751) 29.2 pg 25.6-32.2 MEAN CORPUSCULAR HEMOGLOBIN CONC (BEAKER) (test code = 752) 33.2 GM/DL 32.2-35.5 RED CELL DISTRIBUTION WIDTH (BEAKER) (test code = 412) 16.9 % 11.7-14.4 H PLATELET COUNT (BEAKER) (test code = 756) 39 K/CU MM 150-450 L MEAN PLATELET VOLUME (BEAKER) (test code = 754) 12.1 fL 9.4-12 .3 NUCLEATED RED BLOOD CELLS (BEAKER) (test code = 413) 0 /100 WBC 0 -0 (CELLAVISION MANUAL DIFF)2019-09-25 10:30:00* Test Item Value Reference Range Interpretation Comments NEUTROPHILS - REL (CELLAVISION)(BEAKER) (test code = 2816) 51 % LYMPHOCYTES - REL (CELLAVISION)(BEAKER) (test code = 2817) 49 % NEUTROPHILS - ABS (CELLAVISION)(BEAKER) (test code = 2830) 0.36 K/ul 1.56-6.13 L LYMPHOCYTES - ABS (CELLAVISION)(BEAKER) (test code = 2831) 0.34 K/ul 1.18-3.74 L TOTAL COUNTED (BEAKER) (test code = 1351) 100 WBC MORPHOLOGY (BEAKER) (test code = 487) Normal PLT MORPHOLOGY (BEAKER) (test code = 486) Normal POLYCHROMATOPHILLIC RBCS(BEAKER) (test code = 478) 1+ few ANISOCYTOSIS (BEAKER) (test code = 961) 1+ few MICROCYTES (BEAKER) (test code = 965) 1+ few MACROCYTES (BEAKER) (test code = 964) 1+ few POIKILOCYTES (BEAKER) (test code = 966) 1+ few SCHISTOCYTES (BEAKER) (test code = 765) 1+ few OVALOCYTES (BEAKER) (test code = 477) 1+ few TEAR DROP CELLS (BEAKER) (test code = 481) 1+ few ARTIFACT (CELLAVISION)(BEAKER) (test code = 3432) Present HELMET CELLS (CELLAVISION)(BEAKER) (test code = 3434) 1+ few PLATELET CONCENTRATION (CELLAVISION)(BEAKER) (test code = 3438) Dec reased Compotype Operator ID - [id number] ID - Zita comments: Slide comments: URIC ACID 2019-09-25 07:08:00* Test Item Value Reference Range Interpretation Comments URIC ACID (BEAKER) (test code = 773) 1.9 mg/dL 2.6-7.2 L Compotype Operator ID - CONSUELO OMPREHENSIVE METABOLIC [id number] 07:01:00* Test Item Value Reference Range Interpretation Comments TOTAL PROTEIN (BEAKER) (test code = 770) 6.4 gm/dL 6.0-8.3 ALBUMIN (BEAKER) (test code = 1145) 3.7 g/dL 3.5-5.0 ALKALINE PHOSPHATASE (BEAKER) (test code = 346) 57 U/L 40-150 BILIRUBIN TOTAL (BEAKER) (test code = 377) 0.5 mg/dL 0.2-1.2 SODIUM (BEAKER) (test code = 381) 139 meq/L 136-145 POTASSIUM (BEAKER) (test code = 379) 3.8 meq/L 3.5-5.1 CHLORIDE (BEAKER) (test code = 382) 111 meq/L 98-107 H CO2 (BEAKER) (test code = 355) 24 meq/L 22-29 BLOOD UREA NITROGEN (BEAKER) (test code = 354) 15 mg/dL 7-21 CREATININE (BEAKER) (test code = 358) 0.67 mg/dL 0.57-1.25 GLUCOSE RANDOM (BEAKER) (test code = 652) 113 mg/dL 70-105 H CALCIUM (BEAKER) (test code = 697) 8.2 mg/dL 8.4-10.2 L AST (SGOT) (BEAKER) (test code = 353) 16 U/L 5-34 ALT (SGPT) (BEAKER) (test code = 347) 14 U/L 6-55 EGFR (BEAKER) (test code = 1092) 90 mL/min/1.73 sq m ESTIMATED GFR IS NOT ACCURATE CREATININE CLEARANCE IN PREDICTING GLOMERULAR FILTRATION RATE. ESTIMATED GFR IS NOT APPLICABLE FOR DIALYSIS PATIENTS. Compotype Operator ID - CONSUELO MLACTATE DEHYDROGENASE (LDH)2019-09-25 07:01:00* Test Item Value Reference Range Interpretation Comments LACTATE DEHYDROGENASE (BEAKER) (test code = 635) 208 U/L 125-2 20 Compotype Operator ID - CONSUELO MCBC W/PLT COUNT & AUTO [id number] 09:06:00* Test Item Value Reference Range Interpretation Comments WHITE BLOOD CELL COUNT (BEAKER) (test code = 775) 0.7 K/ L 3.5- 10.5 LL RED BLOOD CELL COUNT (BEAKER) (test code = 761) 2.62 M/ L 3.93-5 .22 L HEMOGLOBIN (BEAKER) (test code = 410) 7.5 GM/DL 11.2-15.7 L HEMATOCRIT (BEAKER) (test code = 411) 23.0 % 34.1-44.9 L MEAN CORPUSCULAR VOLUME (BEAKER) (test code = 753) 87.8 fL 79. 4-94.8 MEAN CORPUSCULAR HEMOGLOBIN (BEAKER) (test code = 751) 28.6 pg 25.6-32.2 MEAN CORPUSCULAR HEMOGLOBIN CONC (BEAKER) (test code = 752) 32.6 GM/DL 32.2-35.5 RED CELL DISTRIBUTION WIDTH (BEAKER) (test code = 412) 17.2 % 11.7-14.4 H PLATELET COUNT (BEAKER) (test code = 756) 44 K/CU MM 150-450 L MEAN PLATELET VOLUME (BEAKER) (test code = 754) 12.9 fL 9.4-12 .3 H NUCLEATED RED BLOOD CELLS (BEAKER) (test code = 413) 0 /100 WBC 0 -0 (CELLAVISION MANUAL DIFF)2019-09-24 09:06:00* Test Item Value Reference Range Interpretation Comments NEUTROPHILS - REL (CELLAVISION)(BEAKER) (test code = 2816) 69 % LYMPHOCYTES - REL (CELLAVISION)(BEAKER) (test code = 2817) 27 % METAMYELOCYTES - REL (CELLAVISION)(BEAKER) (test code = 2821) 1 % 0-0 H MYELOCYTES - REL (CELLAVISION)(BEAKER) (test code = 2822) 1 % 0-0 H BANDS - REL (CELLAVISION)(BEAKER) (test code = 2826) 1 % 0 -10 NEUTROPHILS - ABS (CELLAVISION)(BEAKER) (test code = 2830) 0.48 K/ul 1.56-6.13 L LYMPHOCYTES - ABS (CELLAVISION)(BEAKER) (test code = 2831) 0.19 K/ul 1.18-3.74 L METAMYELOCYTES - ABS (CELLAVISION)(BEAKER) (test code = 2836 ) 0.01 K/uL 0.00-0.00 H MYELOCYTES-ABS (CELLAVISION)(BEAKER) (test code = 2837) 0.01 K/uL 0.00-0.00 H BANDS - ABS (CELLAVISION)(BEAKER) (test code = 2840) 0.01 K/uL 0 .00-0.80 TOTAL COUNTED (BEAKER) (test code = 1351) 100 WBC MORPHOLOGY (BEAKER) (test code = 487) Normal LARGE PLT(BEAKER) (test code = 2156) Present HYPOCHROMIA (BEAKER) (test code = 963) 2+ moderate ANISOCYTOSIS (BEAKER) (test code = 961) 1+ few POIKILOCYTES (BEAKER) (test code = 966) 1+ few ELLIPTOCYTES (BEAKER) (test code = 962) 2+ moderate OVALOCYTES (BEAKER) (test code = 477) 2+ moderate TITO CELLS (BEAKER) (test code = 474) 1+ few ARTIFACT (CELLAVISION)(BEAKER) (test code = 3432) Present PLATELET CONCENTRATION (CELLAVISION)(BEAKER) (test code = 3438) Dec reased Compotype Operator ID - [id number] ID - Aixa García comments: Slide comments: URIC [id number] 07:18:00* Test Item Value Reference Range Interpretation Comments URIC ACID (BEAKER) (test code = 773) 2.0 mg/dL 2.6-7.2 L Compotype Operator ID - WU LBASIC METABOLIC [id number] 07:18:00* Test Item Value Reference Range Interpretation Comments SODIUM (BEAKER) (test code = 381) 139 meq/L 136-145 POTASSIUM (BEAKER) (test code = 379) 3.8 meq/L 3.5-5.1 CHLORIDE (BEAKER) (test code = 382) 109 meq/L 98-107 H CO2 (BEAKER) (test code = 355) 26 meq/L 22-29 BLOOD UREA NITROGEN (BEAKER) (test code = 354) 17 mg/dL 7-21 CREATININE (BEAKER) (test code = 358) 0.72 mg/dL 0.57-1.25 GLUCOSE RANDOM (BEAKER) (test code = 652) 129 mg/dL 70-105 H CALCIUM (BEAKER) (test code = 697) 8.6 mg/dL 8.4-10.2 EGFR (BEAKER) (test code = 1092) 83 mL/min/1.73 sq m ESTIMATED GFR IS NOT ACCURATE CREATININE CLEARANCE IN PREDICTING GLOMERULAR FILTRATION RATE. ESTIMATED GFR IS NOT APPLICABLE FOR DIALYSIS PATIENTS. Compotype Operator ID Olinda WASHBURN LLACTATE DEHYDROGENASE (LDH)2019-09-24 07:18:00* Test Item Value Reference Range Interpretation Comments LACTATE DEHYDROGENASE (BEAKER) (test code = 635) 192 U/L 125-2 20 Compotype Operator HUNG WASHBURN LCBC W/PLT COUNT & AUTO [id number] 10:15:00* Test Item Value Reference Range Interpretation Comments WHITE BLOOD CELL COUNT (BEAKER) (test code = 775) 0.9 K/ L 3.5- 10.5 LL RED BLOOD CELL COUNT (BEAKER) (test code = 761) 2.74 M/ L 3.93-5 .22 L HEMOGLOBIN (BEAKER) (test code = 410) 7.9 GM/DL 11.2-15.7 L HEMATOCRIT (BEAKER) (test code = 411) 24.0 % 34.1-44.9 L MEAN CORPUSCULAR VOLUME (BEAKER) (test code = 753) 87.6 fL 79. 4-94.8 MEAN CORPUSCULAR HEMOGLOBIN (BEAKER) (test code = 751) 28.8 pg 25.6-32.2 MEAN CORPUSCULAR HEMOGLOBIN CONC (BEAKER) (test code = 752) 32.9 GM/DL 32.2-35.5 RED CELL DISTRIBUTION WIDTH (BEAKER) (test code = 412) 17.2 % 11.7-14.4 H PLATELET COUNT (BEAKER) (test code = 756) 50 K/CU MM 150-450 L MEAN PLATELET VOLUME (BEAKER) (test code = 754) 11.8 fL 9.4-12 .3 NUCLEATED RED BLOOD CELLS (BEAKER) (test code = 413) 0 /100 WBC 0 -0 (CELLAVISION MANUAL DIFF)2019-09-23 10:15:00* Test Item Value Reference Range Interpretation Comments NEUTROPHILS - REL (CELLAVISION)(BEAKER) (test code = 2816) 83 % LYMPHOCYTES - REL (CELLAVISION)(BEAKER) (test code = 2817) 15 % MONOCYTES - REL (CELLAVISION)(BEAKER) (test code = 2818) 2 % NEUTROPHILS - ABS (CELLAVISION)(BEAKER) (test code = 2830) 0.75 K/ul 1.56-6.13 L LYMPHOCYTES - ABS (CELLAVISION)(BEAKER) (test code = 2831) 0.14 K/ul 1.18-3.74 L MONOCYTES - ABS (CELLAVISION)(BEAKER) (test code = 2832) 0.02 K/uL 0.24-0.36 L TOTAL COUNTED (BEAKER) (test code = 1351) 100 WBC MORPHOLOGY (BEAKER) (test code = 487) Normal PLT MORPHOLOGY (BEAKER) (test code = 486) Normal POLYCHROMATOPHILLIC RBCS(BEAKER) (test code = 478) 1+ few HYPOCHROMIA (BEAKER) (test code = 963) 1+ few Compotype Operator ID - [id number] 05:40:00* Test Item Value Reference Range Interpretation Comments URIC ACID (BEAKER) (test code = 773) 2.1 mg/dL 2.6-7.2 L Compotype Operator ID - PIAYA LBASIC METABOLIC [id number] 05:40:00* Test Item Value Reference Range Interpretation Comments SODIUM (BEAKER) (test code = 381) 140 meq/L 136-145 POTASSIUM (BEAKER) (test code = 379) 3.7 meq/L 3.5-5.1 CHLORIDE (BEAKER) (test code = 382) 110 meq/L 98-107 H CO2 (BEAKER) (test code = 355) 24 meq/L 22-29 BLOOD UREA NITROGEN (BEAKER) (test code = 354) 15 mg/dL 7-21 CREATININE (BEAKER) (test code = 358) 0.66 mg/dL 0.57-1.25 GLUCOSE RANDOM (BEAKER) (test code = 652) 119 mg/dL 70-105 H CALCIUM (BEAKER) (test code = 697) 9.0 mg/dL 8.4-10.2 EGFR (BEAKER) (test code = 1092) 91 mL/min/1.73 sq m ESTIMATED GFR IS NOT ACCURATE CREATININE CLEARANCE IN PREDICTING GLOMERULAR FILTRATION RATE. ESTIMATED GFR IS NOT APPLICABLE FOR DIALYSIS PATIENTS. Compotype Operator ID - WU LLACTATE DEHYDROGENASE (LDH)2019-09-23 05:40:00* Test Item Value Reference Range Interpretation Comments LACTATE DEHYDROGENASE (BEAKER) (test code = 635) 207 U/L 125-2 20 Compotype Operator HUNG WASHBURN LCBC W/PLT COUNT & AUTO [id number] 09:48:00* Test Item Value Reference Range Interpretation Comments WHITE BLOOD CELL COUNT (BEAKER) (test code = 775) 0.9 K/ L 3.5- 10.5 LL RED BLOOD CELL COUNT (BEAKER) (test code = 761) 2.65 M/ L 3.93-5 .22 L HEMOGLOBIN (BEAKER) (test code = 410) 7.7 GM/DL 11.2-15.7 L HEMATOCRIT (BEAKER) (test code = 411) 23.1 % 34.1-44.9 L MEAN CORPUSCULAR VOLUME (BEAKER) (test code = 753) 87.2 fL 79. 4-94.8 MEAN CORPUSCULAR HEMOGLOBIN (BEAKER) (test code = 751) 29.1 pg 25.6-32.2 MEAN CORPUSCULAR HEMOGLOBIN CONC (BEAKER) (test code = 752) 33.3 GM/DL 32.2-35.5 RED CELL DISTRIBUTION WIDTH (BEAKER) (test code = 412) 17.2 % 11.7-14.4 H PLATELET COUNT (BEAKER) (test code = 756) 9 K/CU MM 150-450 LL MEAN PLATELET VOLUME (BEAKER) (test code = 754) Unable to report due to abnormal Platelet population distribution. NUCLEATED RED BLOOD CELLS (BEAKER) (test code = 413) 0 /100 WBC 0 -0 (CELLAVISION MANUAL DIFF)2019-09-22 09:48:00* Test Item Value Reference Range Interpretation Comments NEUTROPHILS - REL (CELLAVISION)(BEAKER) (test code = 2816) 87 % LYMPHOCYTES - REL (CELLAVISION)(BEAKER) (test code = 2817) 11 % MONOCYTES - REL (CELLAVISION)(BEAKER) (test code = 2818) 2 % NEUTROPHILS - ABS (CELLAVISION)(BEAKER) (test code = 2830) 0.78 K/ul 1.56-6.13 L LYMPHOCYTES - ABS (CELLAVISION)(BEAKER) (test code = 2831) 0.10 K/ul 1.18-3.74 L MONOCYTES - ABS (CELLAVISION)(BEAKER) (test code = 2832) 0.02 K/uL 0.24-0.36 L TOTAL COUNTED (BEAKER) (test code = 1351) 100 WBC MORPHOLOGY (BEAKER) (test code = 487) Normal PLT MORPHOLOGY (BEAKER) (test code = 486) Normal POLYCHROMATOPHILLIC RBCS(BEAKER) (test code = 478) 2+ moderate HYPOCHROMIA (BEAKER) (test code = 963) 1+ few OVALOCYTES (BEAKER) (test code = 477) 1+ few ARTIFACT (CELLAVISION)(BEAKER) (test code = 3432) Present PLATELET CONCENTRATION (CELLAVISION)(BEAKER) (test code = 3438) Dec reased Compotype Operator ID - [id number] ID - Nguyen Drake comments: Slide comments: URIC [id number] 06:25:00* Test Item Value Reference Range Interpretation Comments URIC ACID (BEAKER) (test code = 773) 2.2 mg/dL 2.6-7.2 L Compotype Operator ID - [id number] 06:25:00* Test Item Value Reference Range Interpretation Comments MAGNESIUM (BEAKER) (test code = 627) 2.1 mg/dL 1.6-2.6 Compotype Operator ID - [id number] 06:25:00* Test Item Value Reference Range Interpretation Comments PHOSPHORUS (BEAKER) (test code = 604) 3.6 mg/dL 2.3-4.7 Compotype Operator ID - DBBASIC METABOLIC [id number] 06:25:00* Test Item Value Reference Range Interpretation Comments SODIUM (BEAKER) (test code = 381) 139 meq/L 136-145 POTASSIUM (BEAKER) (test code = 379) 4.0 meq/L 3.5-5.1 CHLORIDE (BEAKER) (test code = 382) 112 meq/L 98-107 H CO2 (BEAKER) (test code = 355) 23 meq/L 22-29 BLOOD UREA NITROGEN (BEAKER) (test code = 354) 13 mg/dL 7-21 CREATININE (BEAKER) (test code = 358) 0.69 mg/dL 0.57-1.25 GLUCOSE RANDOM (BEAKER) (test code = 652) 131 mg/dL 70-105 H CALCIUM (BEAKER) (test code = 697) 8.7 mg/dL 8.4-10.2 EGFR (BEAKER) (test code = 1092) 87 mL/min/1.73 sq m ESTIMATED GFR IS NOT ACCURATE CREATININE CLEARANCE IN PREDICTING GLOMERULAR FILTRATION RATE. ESTIMATED GFR IS NOT APPLICABLE FOR DIALYSIS PATIENTS. Compotype Operator ID - DBLACTATE DEHYDROGENASE (LDH)2019-09-22 06:25:00* Test Item Value Reference Range Interpretation Comments LACTATE DEHYDROGENASE (BEAKER) (test code = 635) 192 U/L 125-2 20 Compotype Operator ID - DBCBC W/PLT COUNT & AUTO [id number] 14:25:00* Test Item Value Reference Range Interpretation Comments WHITE BLOOD CELL COUNT (BEAKER) (test code = 775) 1.2 K/ L 3.5- 10.5 L RED BLOOD CELL COUNT (BEAKER) (test code = 761) 2.93 M/ L 3.93-5 .22 L HEMOGLOBIN (BEAKER) (test code = 410) 8.2 GM/DL 11.2-15.7 L HEMATOCRIT (BEAKER) (test code = 411) 25.7 % 34.1-44.9 L MEAN CORPUSCULAR VOLUME (BEAKER) (test code = 753) 87.7 fL 79. 4-94.8 MEAN CORPUSCULAR HEMOGLOBIN (BEAKER) (test code = 751) 28.0 pg 25.6-32.2 MEAN CORPUSCULAR HEMOGLOBIN CONC (BEAKER) (test code = 752) 31.9 GM/DL 32.2-35.5 L RED CELL DISTRIBUTION WIDTH (BEAKER) (test code = 412) 17.0 % 11.7-14.4 H PLATELET COUNT (BEAKER) (test code = 756) 13 K/CU MM 150-450 L MEAN PLATELET VOLUME (BEAKER) (test code = 754) Unable to report due to abnormal Platelet population distribution. NUCLEATED RED BLOOD CELLS (BEAKER) (test code = 413) 2 /100 WBC 0 -0 H ANG, TUNNELED CATHETER [id number] 10:43:00Reason for Central Line/PICC?->> 21 days of IV infusion Reason for exam:->chemotherapyFINAL REPORT History: Leukemia. Need for long-term central IV access. PROCEDURE: Following informed written consent, the patient's right upper extremity was prepped and draped in usual sterile manner. Maximum sterile barrier techniques were utilized. 2% lidocaine was given locally for anesthesia. No conscious sedation was administered. Using ultrasound guidance a micropunctu re needle, access was gained to the patient's right basilic vein. A 5 Maldivian ariella l-lumen power PICC line was cut to a length of 32 cm and placed through a peel-a way sheath and over wire centrally into the superior vena cava under fluoroscopi c guidance. The catheter was flushed and secured to the skin using 2-0 silk sutu re. Overall, the patient tolerated the procedure well without immediate complica tions and was discharged from the department in stable condition. FINDINGS: Spot image of the chest following PICC line placement demonstrates the right upper e xtremity PICC to lie in expected position with its tip of the superior vena cava . Both ports of the catheter flush and aspirate without difficulty. Ultrasound i mages of the right upper extremity show patent compressible right brachial and b asilic veins. No evidence for thrombosis. These ultrasound images were archived to PACS. IMPRESSION: 1. Successful uncomplicated ultrasound and fluoroscopically guided placement of a right upper extremity 5 Maldivian dual lumen PICC line as de scribed above. Total fluoroscopy time: 0.4 minutes. Estimated total patient do se reported as (Ka,r): 0.6 mGy Signed: José Luis Lao MDReport Verified Date/Time : 09/21/2019 10:43:52 Reading Location: [place] [address] Angio Body Reading Room Tunneled Catheter [id number] 10:43:00Interface, External Ris In - 09/21/2019 10:46 AM CDTFINAL REPORT History: Leukemia. Need for long-term central IV access. PROCEDURE: Following informed written consent, the patient's right upper extremity was prepped and draped in usual sterile manner. Maximum sterile barrier techniques were utilized. 2% lidocaine was given locally for anesthesia. No conscious sedation was administered. Using ultrasound guidance a micropuncture needle, access was gained to the patient's right basilic vein. A 5 Maldivian dual-lumen power PICC line was cut to [...] difficulty. Ultrasound images of the right upper ext remity show patent compressible right brachial and basilic veins. No evidence fo r thrombosis. These ultrasound images were archived to PACS. IMPRESSION: 1. Succ essful uncomplicated ultrasound and fluoroscopically guided placement of a right upper extremity 5 Maldivian dual lumen PICC line as described above. Total fluor oscopy time: 0.4 minutes. Estimated total patient dose reported as (Ka,r): 0.6 m Gy Signed: José Luis Lao Verified Date/Time: 09/21/2019 10:43:52 Readi ng Location: [place] [address] Angio Body Reading Room [facility] (CELLAVISION MANUAL DIFF)2019-09-21 08:55:00* Test Item Value Reference Range Interpretation Comments NEUTROPHILS - REL (CELLAVISION)(BEAKER) (test code = 2816) 57 % LYMPHOCYTES - REL (CELLAVISION)(BEAKER) (test code = 2817) 42 % BANDS - REL (CELLAVISION)(BEAKER) (test code = 2826) 1 % 0 -10 NEUTROPHILS - ABS (CELLAVISION)(BEAKER) (test code = 2830) 0.68 K/ul 1.56-6.13 L LYMPHOCYTES - ABS (CELLAVISION)(BEAKER) (test code = 2831) 0.50 K/ul 1.18-3.74 L BANDS - ABS (CELLAVISION)(BEAKER) (test code = 2840) 0.01 K/uL 0 .00-0.80 TOTAL COUNTED (BEAKER) (test code = 1351) 100 WBC MORPHOLOGY (BEAKER) (test code = 487) Normal PLT MORPHOLOGY (BEAKER) (test code = 486) Normal ANISOCYTOSIS (BEAKER) (test code = 961) 1+ few MICROCYTES (BEAKER) (test code = 965) 1+ few POIKILOCYTES (BEAKER) (test code = 966) 2+ moderate SPHEROCYTES (BEAKER) (test code = 768) 1+ few ACANTHOCYTES (BEAKER) (test code = 471) 1+ few ARTIFACT (CELLAVISION)(BEAKER) (test code = 3432) Present PLATELET CONCENTRATION (CELLAVISION)(BEAKER) (test code = 3438) Dec reased Compotype Operator ID - [id number] ID - Izabela Hanna comments: Slide comments: URIC [id number] 05:15:00* Test Item Value Reference Range Interpretation Comments URIC ACID (BEAKER) (test code = 773) 2.0 mg/dL 2.6-7.2 L Compotype Operator ID - TALIB [id number] 05:15:00* Test Item Value Reference Range Interpretation Comments MAGNESIUM (BEAKER) (test code = 627) 2.1 mg/dL 1.6-2.6 Compotype Operator ID - TALIB [id number] 05:15:00* Test Item Value Reference Range Interpretation Comments PHOSPHORUS (BEAKER) (test code = 604) 3.6 mg/dL 2.3-4.7 Compotype Operator ID - TALIB WBASIC METABOLIC [id number] 05:15:00* Test Item Value Reference Range Interpretation Comments SODIUM (BEAKER) (test code = 381) 139 meq/L 136-145 POTASSIUM (BEAKER) (test code = 379) 3.9 meq/L 3.5-5.1 CHLORIDE (BEAKER) (test code = 382) 112 meq/L 98-107 H CO2 (BEAKER) (test code = 355) 23 meq/L 22-29 BLOOD UREA NITROGEN (BEAKER) (test code = 354) 17 mg/dL 7-21 CREATININE (BEAKER) (test code = 358) 0.72 mg/dL 0.57-1.25 GLUCOSE RANDOM (BEAKER) (test code = 652) 131 mg/dL 70-105 H CALCIUM (BEAKER) (test code = 697) 8.9 mg/dL 8.4-10.2 EGFR (BEAKER) (test code = 1092) 83 mL/min/1.73 sq m ESTIMATED GFR IS NOT ACCURATE CREATININE CLEARANCE IN PREDICTING GLOMERULAR FILTRATION RATE. ESTIMATED GFR IS NOT APPLICABLE FOR DIALYSIS PATIENTS. Compotype Operator ID - TALIB WLACTATE DEHYDROGENASE (LDH)2019-09-21 05:15:00* Test Item Value Reference Range Interpretation Comments LACTATE DEHYDROGENASE (BEAKER) (test code = 635) 199 U/L 125-2 20 Compotype Operator ID - TALIB [facility] [id number] 09:59:00* Test Item Value Reference Range Interpretation Comments ANTIBODY ID (BEAKER) (test code = 2253) UNID IgG Antibody Consult (test code = 2479) SIGNED OUT An IgG antibody of undetermined specificity is detected, transfuse crossmatch compatible RBCs.Electronic Signature: Giovanni Spain M.D. [facility] W/PLT COUNT & AUTO [id number] 07:58:00* Test Item Value Reference Range Interpretation Comments WHITE BLOOD CELL COUNT (BEAKER) (test code = 775) 1.5 K/ L 3.5- 10.5 L RED BLOOD CELL COUNT (BEAKER) (test code = 761) 2.37 M/ L 3.93-5 .22 L HEMOGLOBIN (BEAKER) (test code = 410) 6.8 GM/DL 11.2-15.7 L HEMATOCRIT (BEAKER) (test code = 411) 21.0 % 34.1-44.9 L MEAN CORPUSCULAR VOLUME (BEAKER) (test code = 753) 88.6 fL 79. 4-94.8 MEAN CORPUSCULAR HEMOGLOBIN (BEAKER) (test code = 751) 28.7 pg 25.6-32.2 MEAN CORPUSCULAR HEMOGLOBIN CONC (BEAKER) (test code = 752) 32.4 GM/DL 32.2-35.5 RED CELL DISTRIBUTION WIDTH (BEAKER) (test code = 412) 17.5 % 11.7-14.4 H PLATELET COUNT (BEAKER) (test code = 756) 15 K/CU MM 150-450 L MEAN PLATELET VOLUME (BEAKER) (test code = 754) Unable to report due to abnormal Platelet population distribution. NUCLEATED RED BLOOD CELLS (BEAKER) (test code = 413) 1 /100 WBC 0 -0 H (CELLAVISION MANUAL DIFF)2019-09-20 07:58:00* Test Item Value Reference Range Interpretation Comments NEUTROPHILS - REL (CELLAVISION)(BEAKER) (test code = 2816) 35 % LYMPHOCYTES - REL (CELLAVISION)(BEAKER) (test code = 2817) 63 % MONOCYTES - REL (CELLAVISION)(BEAKER) (test code = 2818) 2 % NEUTROPHILS - ABS (CELLAVISION)(BEAKER) (test code = 2830) 0.53 K/ul 1.56-6.13 L LYMPHOCYTES - ABS (CELLAVISION)(BEAKER) (test code = 2831) 0.95 K/ul 1.18-3.74 L MONOCYTES - ABS (CELLAVISION)(BEAKER) (test code = 2832) 0.03 K/uL 0.24-0.36 L TOTAL COUNTED (BEAKER) (test code = 1351) 100 MANUAL NRBC PER 100 CELLS (BEAKER) (test code = 1353) 2 /100 WBC 0-0 H PLT MORPHOLOGY (BEAKER) (test code = 486) Normal TOXIC GRANULATION (BEAKER) (test code = 771) Present POLYCHROMATOPHILLIC RBCS(BEAKER) (test code = 478) 1+ few ANISOCYTOSIS (BEAKER) (test code = 961) 1+ few MICROCYTES (BEAKER) (test code = 965) 1+ few POIKILOCYTES (BEAKER) (test code = 966) 1+ few SCHISTOCYTES (BEAKER) (test code = 765) 1+ few SPHEROCYTES (BEAKER) (test code = 768) 1+ few TEAR DROP CELLS (BEAKER) (test code = 481) 1+ few BASOPHILIC STIPPLING (BEAKER) (test code = 473) Present ARTIFACT (CELLAVISION)(BEAKER) (test code = 3432) Present PLATELET CONCENTRATION (CELLAVISION)(BEAKER) (test code = 3438) Dec reased Compotype Operator ID - [id number] ID - LanBonifacio comments: Slide comments: URIC ACID 2019-09-20 06:28:00* Test Item Value Reference Range Interpretation Comments URIC ACID (BEAKER) (test code = 773) 2.4 mg/dL 2.6-7.2 L Compotype Operator ID - CONSUELO [id number] 06:28:00* Test Item Value Reference Range Interpretation Comments MAGNESIUM (BEAKER) (test code = 627) 2.1 mg/dL 1.6-2.6 Compotype Operator ID - CONSUELO [id number] 06:28:00* Test Item Value Reference Range Interpretation Comments PHOSPHORUS (BEAKER) (test code = 604) 3.6 mg/dL 2.3-4.7 Compotype Operator ID - CONSUELO MBASIC METABOLIC [id number] 06:28:00* Test Item Value Reference Range Interpretation Comments SODIUM (BEAKER) (test code = 381) 137 meq/L 136-145 POTASSIUM (BEAKER) (test code = 379) 3.9 meq/L 3.5-5.1 CHLORIDE (BEAKER) (test code = 382) 108 meq/L 98-107 H CO2 (BEAKER) (test code = 355) 24 meq/L 22-29 BLOOD UREA NITROGEN (BEAKER) (test code = 354) 15 mg/dL 7-21 CREATININE (BEAKER) (test code = 358) 0.72 mg/dL 0.57-1.25 GLUCOSE RANDOM (BEAKER) (test code = 652) 98 mg/dL 70-105 CALCIUM (BEAKER) (test code = 697) 8.7 mg/dL 8.4-10.2 EGFR (BEAKER) (test code = 1092) 83 mL/min/1.73 sq m ESTIMATED GFR IS NOT ACCURATE CREATININE CLEARANCE IN PREDICTING GLOMERULAR FILTRATION RATE. ESTIMATED GFR IS NOT APPLICABLE FOR DIALYSIS PATIENTS. Compotype Operator ID Olinda CORDERO MLACTATE DEHYDROGENASE (LDH)2019-09-20 06:28:00* Test Item Value Reference Range Interpretation Comments LACTATE DEHYDROGENASE (DEBBIE) (test code = 635) 196 U/L 125-2 20 Compotype Operator ID - CONSUELO M2D Echo W/Doppler(CW/PW/Color)2019-09-19 17:14:51Ejection FractionSLEH ECHO HEARTLAB MKCKESSON CPACSInterface, External Ris In - 09/19/2019 5:15 PM CDTTransthoracic Echocardiography Report (TTE) Demographics Patient Name TIMOTHY DALY Date of Study 09/19/2019 FR ANCES Gender Female Visit Number [id number] Race Unknown Room Number 2047 Number Date of 1960 Referring Escudier Caitlyn Hammer Physician Age 59 year(s) Audience Coordinator Wale Hutchins Bingo Manager Karen ardon RDCS Interpreting Teri Gonzales Physician Procedure Type of Study TTE procedure:2DECHO W DOPPL ER(CW/PW/COLOR) (Routine) Indications:Palpitations.Clinical HistoryHGB 8.4HCT 25 .5 %THROMBOCYTOPENIA, ITP, MDS, HX OF LEUKEMIAHeight: 60 inches Weight: 59.87 kg (132 lbs) BSA: 1.56 m^2 BMI: 25.78 kg/m^2HR: 72 bpm BP: 168/78 mmHg Summary 1. Normal LV size. All LV segments are hyperkinetic LVEF by Aguilar's method of dis k assessment is increased (>70%) 2. Normal RV [...] is normal. Mild tricuspid regurgitation. Estimated peak systo lic PA pressure is 30-35 mmHg (normal range) . Pulmonic Valve Normal PV structure and function by limited views and Doppler. Aorta Aortic root size (SInus of Valsalva diameter) is normal . Pericardium No pericard ial effusion is visualized. IVC/SVC/PA/PV/Pleural The estimated RA pressure by IVC dynamics 0-5mmHg . Chambers/Structures Left Atrium LA Volume: 32.2 ml LA Area: 13.79 cm^2 LA Vol. Index: 21 ml/m^2 Left Ventricle L VIDd: 4.35 cm LVIDs: 2.5 cm LV Septum Diastolic: 0.84 cm LV PW Diastolic: 0.81 c m LV FS: 42.5 % LVEDV Aguilar's:60.12 ml LVESV Aguilar's:12.1 ml LVEDVI: 39 ml/m^2 LVEF Aguilar's: 79.9 % LVESVI: 8 ml/m^2 LVOT Diameter: 2.12 cm Aorta Ao Root S of Angie.: 2.87 cm Doppler/Quantitative Measurements Mitral Valve MV Peak E-Wave: 0.75 m/s MV Peak A-Wave: 0.75 m/s E/A Ratio: 1 Peak Gradient: 2.24 mmHg Deceleration Time: 174.9 msec MV Josh. Peak: Aortic Valve Peak Josh ocity: 1.38 m/s Mean Velocity: 0.92 m/s Peak Gradient: 7.66 mmH g Mean Gradient: 3.96 mmHg AV Area (continuity): 2.8 cm^2 AV VTI : 25.23 cm AV DVI: 0.79 LVOT Peak Velocity: 0.98 m/s Peak Gradien t: 3.85 mmHg Mean Velocity: 0.64 m/s Mean Gradient: 1.94 mmHg LVOT D iameter: 2.12 cm LVOT VTI: 20.02 cm LVOT Area: 3.53 cm^2 LVOT SV:70.63 ml LVOT CO: 5.09 l/min LVOT CI: 3.26 l/min/m^ 2 Tricuspid Valve TR Velocity: 2.61 m/s TR Gradient: 27.18 mmHg [facility] W/PLT COUNT & AUTO [id number] 16:07:00* Test Item Value Reference Range Interpretation Comments WHITE BLOOD CELL COUNT (BEAKER) (test code = 775) 1.6 K/ L 3.5- 10.5 L RED BLOOD CELL COUNT (BEAKER) (test code = 761) 2.45 M/ L 3.93-5 .22 L HEMOGLOBIN (BEAKER) (test code = 410) 7.2 GM/DL 11.2-15.7 L HEMATOCRIT (BEAKER) (test code = 411) 21.5 % 34.1-44.9 L MEAN CORPUSCULAR VOLUME (BEAKER) (test code = 753) 87.8 fL 79. 4-94.8 MEAN CORPUSCULAR HEMOGLOBIN (BEAKER) (test code = 751) 29.4 pg 25.6-32.2 MEAN CORPUSCULAR HEMOGLOBIN CONC (BEAKER) (test code = 752) 33.5 GM/DL 32.2-35.5 RED CELL DISTRIBUTION WIDTH (BEAKER) (test code = 412) 17.2 % 11.7-14.4 H PLATELET COUNT (BEAKER) (test code = 756) 23 K/CU MM 150-450 L MEAN PLATELET VOLUME (BEAKER) (test code = 754) Unable to report due to abnormal Platelet population distribution. NUCLEATED RED BLOOD CELLS (BEAKER) (test code = 413) 3 /100 WBC 0 -0 H (CELLAVISION MANUAL DIFF)2019-09-19 16:07:00* Test Item Value Reference Range Interpretation Comments NEUTROPHILS - REL (CELLAVISION)(BEAKER) (test code = 2816) 33 % LYMPHOCYTES - REL (CELLAVISION)(BEAKER) (test code = 2817) 54 % MONOCYTES - REL (CELLAVISION)(BEAKER) (test code = 2818) 4 % EOSINOPHILS - REL (CELLAVISION)(BEAKER) (test code = 2819) 1 % BANDS - REL (CELLAVISION)(BEAKER) (test code = 2826) 6 % 0 -10 ATYPICAL LYMPHOCYTES - REL (CELLAVISION)(BEAKER) (test code = 2829) 2 % 0-0 H NEUTROPHILS - ABS (CELLAVISION)(BEAKER) (test code = 2830) 0.53 K/ul 1.56-6.13 L LYMPHOCYTES - ABS (CELLAVISION)(BEAKER) (test code = 2831) 0.86 K/ul 1.18-3.74 L MONOCYTES - ABS (CELLAVISION)(BEAKER) (test code = 2832) 0.06 K/uL 0.24-0.36 L EOSINOPHILS - ABS (CELLAVISION)(BEAKER) (test code = 2834) 0.02 K/uL 0.04-0.36 L BANDS - ABS (CELLAVISION)(BEAKER) (test code = 2840) 0.10 K/uL 0 .00-0.80 ATYPICAL LYMPHOCYTES - ABS (CELLAVISION)(BEAKER) (test code = 2858) 0.03 K/uL 0.00-0.00 H TOTAL COUNTED (BEAKER) (test code = 1351) 100 MANUAL NRBC PER 100 CELLS (BEAKER) (test code = 1353) 2 /100 WBC 0-0 H SMUDGE CELLS (BEAKER) (test code = 1371) Present GIANT PLATELETS (BEAKER) (test code = 313) Present POLYCHROMATOPHILLIC RBCS(BEAKER) (test code = 478) 3+ many HYPOCHROMIA (BEAKER) (test code = 963) 1+ few ANISOCYTOSIS (BEAKER) (test code = 961) 3+ many MICROCYTES (BEAKER) (test code = 965) 3+ many POIKILOCYTES (BEAKER) (test code = 966) 1+ few OVALOCYTES (BEAKER) (test code = 477) 1+ few TEAR DROP CELLS (BEAKER) (test code = 481) 1+ few ARTIFACT (CELLAVISION)(BEAKER) (test code = 3432) Present PLATELET CONCENTRATION (CELLAVISION)(BEAKER) (test code = 3438) Dec reased Compotype Operator ID - [id number] ID - deana Carmona comments: Slide comments: [id number] 13:57:00* Test Item Value Reference Range Interpretation Comments MAGNESIUM (BEAKER) (test code = 627) 2.1 mg/dL 1.6-2.6 Compotype Operator ID - IVANA CHEPATIC FUNCTION [id number] 13:57:00* Test Item Value Reference Range Interpretation Comments TOTAL PROTEIN (BEAKER) (test code = 770) 7.0 gm/dL 6.0-8.3 ALBUMIN (BEAKER) (test code = 1145) 4.0 g/dL 3.5-5.0 BILIRUBIN TOTAL (BEAKER) (test code = 377) 0.7 mg/dL 0.2-1.2 BILIRUBIN DIRECT (BEAKER) (test code = 706) 0.3 mg/dL 0.1-0.5 ALKALINE PHOSPHATASE (BEAKER) (test code = 346) 66 U/L 40-150 AST (SGOT) (BEAKER) (test code = 353) 16 U/L 5-34 ALT (SGPT) (BEAKER) (test code = 347) 13 U/L 6-55 Compotype Operator ID - IVANA CCOMPREHENSIVE METABOLIC [id number] 13:57:00* Test Item Value Reference Range Interpretation Comments TOTAL PROTEIN (BEAKER) (test code = 770) 7.0 gm/dL 6.0-8.3 ALBUMIN (BEAKER) (test code = 1145) 4.0 g/dL 3.5-5.0 ALKALINE PHOSPHATASE (BEAKER) (test code = 346) 66 U/L 40-150 BILIRUBIN TOTAL (BEAKER) (test code = 377) 0.7 mg/dL 0.2-1.2 SODIUM (BEAKER) (test code = 381) 138 meq/L 136-145 POTASSIUM (BEAKER) (test code = 379) 3.8 meq/L 3.5-5.1 CHLORIDE (BEAKER) (test code = 382) 107 meq/L 98-107 CO2 (BEAKER) (test code = 355) 25 meq/L 22-29 BLOOD UREA NITROGEN (BEAKER) (test code = 354) 18 mg/dL 7-21 CREATININE (BEAKER) (test code = 358) 0.69 mg/dL 0.57-1.25 GLUCOSE RANDOM (BEAKER) (test code = 652) 87 mg/dL 70-105 CALCIUM (BEAKER) (test code = 697) 9.2 mg/dL 8.4-10.2 AST (SGOT) (BEAKER) (test code = 353) 16 U/L 5-34 ALT (SGPT) (BEAKER) (test code = 347) 13 U/L 6-55 EGFR (BEAKER) (test code = 1092) 87 mL/min/1.73 sq m ESTIMATED GFR IS NOT ACCURATE CREATININE CLEARANCE IN PREDICTING GLOMERULAR FILTRATION RATE. ESTIMATED GFR IS NOT APPLICABLE FOR DIALYSIS PATIENTS. Compotype Operator ID - IVANA CPT/[id number] 13:45:00* Test Item Value Reference Range Interpretation Comments PROTIME (BEAKER) (test code = 759) 14.2 seconds 11.9-14.2 INR (BEAKER) (test code = 370) 1.1 <=5.9 PARTIAL THROMBOPLASTIN TIME (BEAKER) (test code = 760) 37.3 seconds 22.5-36.0 H Effective 10/25/2018: PT Reference Range ChangeNew: 11.9-14.2 Previous: 11.7-14. 7RECOMMENDED COUMADIN/WARFARIN INR THERAPY RANGESSTANDARD DOSE: 2.0-3.0 Include s: PROPHYLAXIS for venous thrombosis, systemic embolization; TREATMENT for venou s thrombosis and/or pulmonary embolus.HIGH RISK: Target INR is 2.5-3.5 for patie nts wiht mechanical heart valves.CBC W/PLT COUNT & AUTO [id number] 12:13:00* Test Item Value Reference Range Interpretation Comments WHITE BLOOD CELL COUNT (BEAKER) (test code = 775) 1.7 K/ L 3.5- 10.5 L RED BLOOD CELL COUNT (BEAKER) (test code = 761) 2.99 M/ L 3.93-5 .22 L HEMOGLOBIN (BEAKER) (test code = 410) 8.9 GM/DL 11.2-15.7 L HEMATOCRIT (BEAKER) (test code = 411) 27.2 % 34.1-44.9 L MEAN CORPUSCULAR VOLUME (BEAKER) (test code = 753) 91.0 fL 79. 4-94.8 MEAN CORPUSCULAR HEMOGLOBIN (BEAKER) (test code = 751) 29.8 pg 25.6-32.2 MEAN CORPUSCULAR HEMOGLOBIN CONC (BEAKER) (test code = 752) 32.7 GM/DL 32.2-35.5 RED CELL DISTRIBUTION WIDTH (BEAKER) (test code = 412) 17.6 % 11.7-14.4 H PLATELET COUNT (BEAKER) (test code = 756) 20 K/CU MM 150-450 L MEAN PLATELET VOLUME (BEAKER) (test code = 754) 10.1 fL 9.4-12 .3 NUCLEATED RED BLOOD CELLS (BEAKER) (test code = 413) 2 /100 WBC 0 -0 H (CELLAVISION MANUAL DIFF)2019-09-14 12:13:00* Test Item Value Reference Range Interpretation Comments NEUTROPHILS - REL (CELLAVISION)(BEAKER) (test code = 2816) 26 % LYMPHOCYTES - REL (CELLAVISION)(BEAKER) (test code = 2817) 66 % MONOCYTES - REL (CELLAVISION)(BEAKER) (test code = 2818) 2 % EOSINOPHILS - REL (CELLAVISION)(BEAKER) (test code = 2819) 1 % ATYPICAL LYMPHOCYTES - REL (CELLAVISION)(BEAKER) (test code = 2829) 5 % 0-0 H NEUTROPHILS - ABS (CELLAVISION)(BEAKER) (test code = 2830) 0.44 K/ul 1.56-6.13 L LYMPHOCYTES - ABS (CELLAVISION)(BEAKER) (test code = 2831) 1.12 K/ul 1.18-3.74 L MONOCYTES - ABS (CELLAVISION)(BEAKER) (test code = 2832) 0.03 K/uL 0.24-0.36 L EOSINOPHILS - ABS (CELLAVISION)(BEAKER) (test code = 2834) 0.02 K/uL 0.04-0.36 L ATYPICAL LYMPHOCYTES - ABS (CELLAVISION)(BEAKER) (test code = 2858) 0.09 K/uL 0.00-0.00 H TOTAL COUNTED (BEAKER) (test code = 1351) 100 MANUAL NRBC PER 100 CELLS (BEAKER) (test code = 1353) 1 /100 WBC 0-0 H WBC MORPHOLOGY (BEAKER) (test code = 487) Normal PLT MORPHOLOGY (BEAKER) (test code = 486) Normal POLYCHROMATOPHILLIC RBCS(BEAKER) (test code = 478) 2+ moderate ANISOCYTOSIS (BEAKER) (test code = 961) 1+ few POIKILOCYTES (BEAKER) (test code = 966) 1+ few TITO CELLS (BEAKER) (test code = 474) 1+ few ARTIFACT (CELLAVISION)(BEAKER) (test code = 3432) Present PLATELET CONCENTRATION (CELLAVISION)(BEAKER) (test code = 3438) Dec reased Comp[employer] Operator ID - [id number] ID - Palak Engle comments: Slide comments: B-TYPE NATRIURETIC FACTOR (BNP)2019-09-14 11:44:00* Test Item Value Reference Range Interpretation Comments B-TYPE NATRIURETIC PEPTIDE (BEAKER) (test code = 700) < pg/mL 0-100 Compotype Operator ID - NTPTROPONIN [id number] 11:42:00* Test Item Value Reference Range Interpretation Comments TROPONIN I (BEAKER) (test code = 397) 0.02 ng/mL 0.00-0.03 Troponin I (TnI) levels must be interpreted in the context of the presenting sym ptoms and the clinical findings. Elevated TnI levels indicate myocardial damage, but are not specific for ischemic heart disease. Elevated TnI levels are seen i n patients with other cardiac conditions (including myocarditis and congestive h eart failure), and slight TnI elevations occur in patients with other conditions , including sepsis, renal failure, acidosis, acute neurological disease, and per sistent tachyarrhythmia.Compotype Operator ID - NTPRAD, CHEST, 1 VIEW, NON [id number] 11:37:00Reason for exam:->ABNORMAL LABShould this be performed at the bedside?-> YesFINAL REPORT CLINICAL HISTORY: ABNORMAL LAB TECHNIQUE: 1 view of the chest COMPARISON: None IMPRESSION: There are no focal infiltrates or pleural effusions. The cardiomediastinal silhouette is within normal limits for size. The visualized bones are intact. Signed: Berto Roca MDReport Verified Date/Time: 09/14/2019 11:37:55 Reading Location: [facility] Radiology Reading Room [id number] 11:35:00* Test Item Value Reference Range Interpretation Comments LIPASE (BEAKER) (test code = 749) 121 U/L 8-78 H Compotype Operator ID - NTPBASIC METABOLIC [id number] 11:35:00* Test Item Value Reference Range Interpretation Comments SODIUM (BEAKER) (test code = 381) 137 meq/L 136-145 POTASSIUM (BEAKER) (test code = 379) 4.2 meq/L 3.5-5.1 Specimen slightly hemolyzed CHLORIDE (BEAKER) (test code = 382) 107 meq/L 98-107 CO2 (BEAKER) (test code = 355) 23 meq/L 22-29 BLOOD UREA NITROGEN (BEAKER) (test code = 354) 16 mg/dL 7-21 CREATININE (BEAKER) (test code = 358) 0.75 mg/dL 0.57-1.25 Specimen slightly hemolyzed GLUCOSE RANDOM (BEAKER) (test code = 652) 89 mg/dL 70-105 CALCIUM (BEAKER) (test code = 697) 9.7 mg/dL 8.4-10.2 EGFR (BEAKER) (test code = 1092) 79 mL/min/1.73 sq m ESTIMATED GFR IS NOT ACCURATE CREATININE CLEARANCE IN PREDICTING GLOMERULAR FILTRATION RATE. ESTIMATED GFR IS NOT APPLICABLE FOR DIALYSIS PATIENTS. Compotype Operator ID - NTPHEPATIC FUNCTION [id number] 11:35:00* Test Item Value Reference Range Interpretation Comments TOTAL PROTEIN (BEAKER) (test code = 770) 7.6 gm/dL 6.0-8.3 Specimen slightly hemolyzed ALBUMIN (BEAKER) (test code = 1145) 4.3 g/dL 3.5-5.0 Specimen slightly hemolyzed BILIRUBIN TOTAL (BEAKER) (test code = 377) 1.0 mg/dL 0.2-1.2 Specimen slightly hemolyzed BILIRUBIN DIRECT (BEAKER) (test code = 706) 0.4 mg/dL 0.1-0.5 Specimen slightly hemolyzed ALKALINE PHOSPHATASE (BEAKER) (test code = 346) 70 U/L 40-150 AST (SGOT) (BEAKER) (test code = 353) 23 U/L 5-34 Specimen slightly hemolyzed ALT (SGPT) (BEAKER) (test code = 347) 18 U/L 6-55 Specimen slightly hemolyzed Compotype Operator ID - NTPD-dimer, [id number] 11:26:00* Test Item Value Reference Range Interpretation Comments D-Dimer, Quant (test code = 22506-7) 0.44 <0.50 MG/L FEU KO (test code = KO) Intended Use: The D-Dimer As say can be used to aid in the diagnosis of Deep Vein Thrombosis (DVT) and Pulmonary Embolism Disease (PED).In patients with low pre-test probability, various studies concerning STA Liatest D-dimer test have reported that with a cutoff value of 0.50 MG/L FEU, the Negative Predictive Value (NPV) regarding the exclusion of thrombosis is within 95-100% range. Lab Interpretation (test code = 74171-2) [id number] 11:26:00* Test Item Value Reference Range Interpretation Comments D-DIMER QUANTITATIVE (BEAKER) (test code = 671) 0.44 MG/L FEU <0.50 Intended Use: The D-Dimer Assay can be used to aid in the diagnosis of Deep Vein Thrombosis (DVT) and Pulmonary Embolism Disease (PED).In patients with low pre- test probability, various studies concerning STA Liatest D-dimer test have repor abiola that with a cutoff value of 0.50 MG/L FEU, the Negative Predictive Value (VINEYARD TENDER V) regarding the exclusion of thrombosis is within 95-100% range.FLOW CYTOMETRY [id number] 06:36:00* Test Item Value Reference Range Interpretation Comments FLOW CYTOMETRY RESULT POINTER (BEAKER) (test code = 2758) See Se parate Report FLOW CYTOMETRY AP CASE # ([id number]) (test code = 2759) [id number] FLOW [id number] 11:32:00Flow Cytometry Report Case: [id number] Authorizing Provider: Mario Roper, Collected: 09/07/2019 02:37 PM Ordering Location: [facility] Emergency Department Received: 09/07/2019 04:53 PM Pathologist: Jeremy Donahue MD Specimen: Other PERIPHERAL BLOOD, FLOW CYTOMETRY:ABNORMAL MYELOBLAST POPULATION (9.23% OF ANALYZED EVENTS).NO MONOCLONAL B CELL POPULATION.NO ABNORMAL T CELL POPULATION. This finding was communicated to Dr. Caitlyn White, clinical h ematologist, on 09/08/2019. [id number] blasts. Peripheral BloodCD8, surface -Cohoe, CD56, surface-Lambda, CD5, CD19, CD10, CD3, CD20, CD4, CD45, CD14, CD13, CD33, CD117, CD34, cytoplasmic (c) MPO, cCD79a, CD34, CD19, CD7, CD3, cCD3, CD4 5, CD16, CD13, CD117, CD11b, CD10, CD36, CD64, CD33, CD14, HLA-DR, cTdT, CD56Sp ecimen Viability: 97.0%Abnormal myeloblast population identified (9.23% of tota l cellularity)POSITIVE: CD34, CD117, CD13, CD33, CD7, HLA-DRNEGATIVE: CD19, CD14 , MPO, cCD3, CD3, cCD79A, CD16, CD11B, CD64, CD14, TDTIn addition, the following populations are identified:Lymphocytes: Bright CD45+ lymphocytes comprise 59% o f total cells. T cells show a CD4:CD8 ratio of 4.5. B cells are polytypic with a kappa:lambda ratio of 2.3. Myeloid/monocytic populations: As identified by CD45 and light scatter characteristics, granulocytes comprise the majority of cells analyzed, and monocytes comprise 2.12% of total cells.The remaining events alisha zed represent nonviable cells, non-hematolymphoid cells, and debrisThese tests w ere developed and their performance characteristics determined by [facility]. They have not been cleared or approved by the U.S. Food and Drug Administrati on. The FDA has determined that such clearance or approval is not necessary. It should not be regarded as investigational or for research. This laboratory is ce rtified under the Clinical Laboratory Improvement Amendments of 1988 ("CLIA") as qualified to perform high-complexity clinical testing.[facility], Department of Pathology, [address] [place] [address], Tel [phone], [facility] of [facility], [address] [place] [address], Aqdvlcnkka Blood Smear - Path Kfroln8412-91-91 16:41:00* Test Item Value Reference Range Interpretation Comments Pathologist Review (test code = 2640) Circulating flip ts present, No Favio rods identified. Reported to ER physician Dr. Roper on 09/07/2019. Pathologist: (test code = 2849) Jeremy Donahue M.D.(electroni c signature) [facility] - PATHOLOGIST REVIEW 2019-09-07 16:41:00* Test Item Value Reference Range Interpretation Comments PERIPHERAL SMR REVIEW (BEAKER) (test code = 2640) Circ ulating blasts present, No Favio rods identified. Reported to ER physician Dr. Roper on 09/07/2019. [id number] (BEAKER) (test code = 2849) Ghulam Donahue M.D.(electronic signature) (CELLAVISION MANUAL DIFF)2019-09-07 15:44:00* Test Item Value Reference Range Interpretation Comments NEUTROPHILS - REL (CELLAVISION)(BEAKER) (test code = 2816) 20 % LYMPHOCYTES - REL (CELLAVISION)(BEAKER) (test code = 2817) 63 % EOSINOPHILS - REL (CELLAVISION)(BEAKER) (test code = 2819) 2 % BANDS - REL (CELLAVISION)(BEAKER) (test code = 2826) 6 % 0 -10 BLASTS - REL (CELLAVISION)(BEAKER) (test code = 2827) 8 % 0-0 H ATYPICAL LYMPHOCYTES - REL (CELLAVISION)(BEAKER) (test code = 2829) 2 % 0-0 H NEUTROPHILS - ABS (CELLAVISION)(BEAKER) (test code = 2830) 0.36 K/ul 1.56-6.13 L LYMPHOCYTES - ABS (CELLAVISION)(BEAKER) (test code = 2831) 1.13 K/ul 1.18-3.74 L EOSINOPHILS - ABS (CELLAVISION)(BEAKER) (test code = 2834) 0.04 K/uL 0.04-0.36 BANDS - ABS (CELLAVISION)(BEAKER) (test code = 2840) 0.11 K/uL 0 .00-0.80 BLASTS - ABS (CELLAVISION)(BEAKER) (test code = 2845) 0.14 K/uL 0.00-0.00 H ATYPICAL LYMPHOCYTES - ABS (CELLAVISION)(BEAKER) (test code = 2858) 0.04 K/uL 0.00-0.00 H TOTAL COUNTED (BEAKER) (test code = 1351) 100 WBC MORPHOLOGY (BEAKER) (test code = 487) Normal GIANT PLATELETS (BEAKER) (test code = 313) Present POLYCHROMATOPHILLIC RBCS(BEAKER) (test code = 478) 1+ few ANISOCYTOSIS (BEAKER) (test code = 961) 1+ few MICROCYTES (BEAKER) (test code = 965) 1+ few POIKILOCYTES (BEAKER) (test code = 966) 2+ moderate ELLIPTOCYTES (BEAKER) (test code = 962) 1+ few TEAR DROP CELLS (BEAKER) (test code = 481) 1+ few ARTIFACT (CELLAVISION)(BEAKER) (test code = 3432) Present HELMET CELLS (CELLAVISION)(BEAKER) (test code = 3434) 1+ few PLATELET CONCENTRATION (CELLAVISION)(BEAKER) (test code = 3438) Dec reased Compotype Operator ID - [id number] ID - Jennifer comments: Slide comments: WBC: His tory of MDSABORH, gcurpb3976-03-54 15:39:00* Test Item Value Reference Range Interpretation Comments ABO Grouping (test code = 2588) O Rh Factor (test code = 2589) [facility] [id number] 15:09:00* Test Item Value Reference Range Interpretation Comments SODIUM (BEAKER) (test code = 381) 138 meq/L 136-145 POTASSIUM (BEAKER) (test code = 379) 3.8 meq/L 3.5-5.1 CHLORIDE (BEAKER) (test code = 382) 106 meq/L 98-107 CO2 (BEAKER) (test code = 355) 23 meq/L 22-29 BLOOD UREA NITROGEN (BEAKER) (test code = 354) 16 mg/dL 7-21 CREATININE (BEAKER) (test code = 358) 0.79 mg/dL 0.57-1.25 GLUCOSE RANDOM (BEAKER) (test code = 652) 91 mg/dL 70-105 CALCIUM (BEAKER) (test code = 697) 9.3 mg/dL 8.4-10.2 EGFR (BEAKER) (test code = 1092) 74 mL/min/1.73 sq m ESTIMATED GFR IS NOT ACCURATE CREATININE CLEARANCE IN PREDICTING GLOMERULAR FILTRATION RATE. ESTIMATED GFR IS NOT APPLICABLE FOR DIALYSIS PATIENTS. Compotype Operator ID - ROSIANGCBC W/PLT COUNT & AUTO [id number] 15:04:00* Test Item Value Reference Range Interpretation Comments WHITE BLOOD CELL COUNT (BEAKER) (test code = 775) 1.8 K/ L 3.5- 10.5 L RED BLOOD CELL COUNT (BEAKER) (test code = 761) 2.45 M/ L 3.93-5 .22 L HEMOGLOBIN (BEAKER) (test code = 410) 7.3 GM/DL 11.2-15.7 L HEMATOCRIT (BEAKER) (test code = 411) 22.4 % 34.1-44.9 L MEAN CORPUSCULAR VOLUME (BEAKER) (test code = 753) 91.4 fL 79. 4-94.8 MEAN CORPUSCULAR HEMOGLOBIN (BEAKER) (test code = 751) 29.8 pg 25.6-32.2 MEAN CORPUSCULAR HEMOGLOBIN CONC (BEAKER) (test code = 752) 32.6 GM/DL 32.2-35.5 RED CELL DISTRIBUTION WIDTH (BEAKER) (test code = 412) 18.1 % 11.7-14.4 H PLATELET COUNT (BEAKER) (test code = 756) 12 K/CU MM 150-450 L MEAN PLATELET VOLUME (BEAKER) (test code = 754) Unable to report due to abnormal Platelet population distribution. NUCLEATED RED BLOOD CELLS (BEAKER) (test code = 413) 2 /100 WBC 0 -0 H PT/[id number] 15:00:00* Test Item Value Reference Range Interpretation Comments PROTIME (BEAKER) (test code = 759) 14.7 seconds 11.9-14.2 H INR (BEAKER) (test code = 370) 1.2 <=5.9 PARTIAL THROMBOPLASTIN TIME (BEAKER) (test code = 760) 35.5 seconds 22.5-36.0 Effective 10/25/2018: PT Reference Range ChangeNew: 11.9-14.2 Previous: 11.7-14. 7RECOMMENDED COUMADIN/WARFARIN INR THERAPY RANGESSTANDARD DOSE: 2.0-3.0 Include s: PROPHYLAXIS for venous thrombosis, systemic embolization; TREATMENT for venou s thrombosis and/or pulmonary embolus.HIGH RISK: Target INR is 2.5-3.5 for patie nts wiht mechanical heart valves.immature granulocytes, percentage of total cells, tymof2307-37-65 09:41:00* Test Item Value Reference Range Interpretation Comments immature granulocytes, percentage of total cells, bloo d (test code = 33865-1) 1 % [facility]bas[facility], vaciwenh9703-37-58 09:41:00* Test Item Value Reference Range Interpretation Comments basophil count, absolute (test code = 38904-4) 0.0 x10E3/uL 0.0-0.2 [facility] CenterEosinophil Absolute Wccys7598-48-14 09:41:00* Test Item Value Reference Range Interpretation Comments Eosinophil Absolute Count (test code = 00462-1) 0.0 X10E3/UL 0.0-0. 4 [facility] Centermonocyte count, blood, zjsdwlwjw1827-88-70 09:41:00* Test Item Value Reference Range Interpretation Comments monocyte count, blood, automated (test code = 742-7) 0.2 X10E3/UL 0 .1-0.9 [facility] Centerlymph[facility] count, blood, wibbsnhqq3893-88-92 09:41:00* Test Item Value Reference Range Interpretation Comments lymphocyte count, blood, automated (test code = 731-0) 1.2 X10E3/UL 0.7-3.1 [facility] CenterAbsolute Lodnfcqgubr1106-07-46 09:41:00* Test Item Value Reference Range Interpretation Comments Absolute Neutrophils (test code = 69188-0) 0.9 X10E3/UL 1.4-7.0 L [facility] Centerbasophils as percent of blood anxkzzqzzm1138-67-41 09:41:00* Test Item Value Reference Range Interpretation Comments basophils as percent of blood leukocytes (test code = 707-0) 0 % [facility] Centereosinophils as percent of blood ztzlrdetem7239-26-80 09:41:00* Test Item Value Reference Range Interpretation Comments eosinophils as percent of blood leukocytes (test code = 713-8) 1 % [facility] Centermonocytes as percent of blood otoxeonoer3123-14-89 09:41:00* Test Item Value Reference Range Interpretation Comments monocytes as percent of blood leukocytes (test code = 5905-5) 7 % [facility] Centerlymphocytes as percent of blood ksymjbhdae2725-26-34 09:41:00* Test Item Value Reference Range Interpretation Comments lymphocytes as percent of blood leukocytes (test code = 736-9) 51 % [facility] Centerneutrophils as percent of blood ghixkbcrku9214-76-82 09:41:00* Test Item Value Reference Range Interpretation Comments neutrophils as percent of blood leukocytes (test code = 770-8) 40 % [facility] Centerplatelet uutgr5594-17-20 09:41:00* Test Item Value Reference Range Interpretation Comments platelet count (test code = 777-3) 15 X10E3/UL 150-450 [facility] Centerred blood cell distribution kspis6553-89-97 09:41:00* Test Item Value Reference Range Interpretation Comments red blood cell distribution width (test code = 788-0) 18.4 % 11.7-15.4 H [facility] corpuscular hemoglobin concentration, OQB2106-43-65 09:41:00* Test Item Value Reference Range Interpretation Comments mean corpuscular hemoglobin concentration, RBC (test code = 786-4) 33.1 G/DL 31.5-35.7 [facility] hemoglobin, HKI1364-75-56 09:41:00* Test Item Value Reference Range Interpretation Comments mean corpuscular hemoglobin, RBC (test code = 785-6) 30.7 pg 2 6.6-33.0 [facility] corpuscular volume, NCO1607-75-98 09:41:00* Test Item Value Reference Range Interpretation Comments mean corpuscular volume, RBC (test code = 787-2) 93 fL 79-97 [facility] Centerhematocrit, qkerc0983-95-69 09:41:00* Test Item Value Reference Range Interpretation Comments hematocrit, blood (test code = 4544-3) 25.4 % 34.0-46.6 L [facility] Centerhemoglobin, xhieq6506-69-11 09:41:00* Test Item Value Reference Range Interpretation Comments hemoglobin, blood (test code = 718-7) 8.4 g/dL 11.1-15.9 L [facility] Centererythrocyte (RBC) siyiy8693-25-79 09:41:00* Test Item Value Reference Range Interpretation Comments erythrocyte (RBC) count (test code = 789-8) 2.74 X10E6/UL 3.77-5.28 [facility]uk[facility], rygqf8975-27-75 09:41:00* Test Item Value Reference Range Interpretation Comments leukocyte count, blood (test code = 6690-2) 2.3 X10E3/UL 3.4-10.8 [facility]emManual zfhpbbpberlr1765-97-77 07:47:09* Test Item Value Reference Range Interpretation Comments Manual differential (test code = 83858-6) PERFORMED Neutrophils (test code = 46802-5) 31.0 % 36-66 L Corrected result; previously reported as 33.0 on 08/22/2019 at 06:16 by JGP Lymphocytes (test code = 49568-7) 61.0 % 24-44 H Corrected result; previously reported as 56.9 on 08/22/2019 at 06:16 by JGP Monocytes (test code = 00448-8) 7.0 % 0-6 H Corrected result; previously reported as 8.4 on 08/22/2019 at 06:16 by JGP Eosinophils (test code = 56613-5) 1.0 % 0-6 Corrected result; previously reported as 0.4 on 08/22/2019 at 06:16 by JGP Basophils (test code = 93007-0) 0.0 % 0-1.2 Metamyelocytes (test code = 740-1) 0 % 0-1 Promyelocytes (test code = 783-1) 0 % 0-1 Platelet slide review (test code = 26891-1) Mkd decreased A Anisocytosis (test code = 702-1) slight Polychromasia (test code = 39233-9) slight Tear drop cells (test code = 7791-7) Occasional Schistocytes (test code = 800-3) Occasional Ovalocytes (test code = 774-0) Occasional Hooven cells (test code = 7790-9) Occasional Enlarged platelets (test code = 25463-7) Occasional Giant platelets (test code = 5908-9) Occasional Lab Interpretation (test code = 05597-9) Abnormal [place] MethodistImmature platelet fmpdvsux0365-43-03 06:52:05* Test Item Value Reference Range Interpretation Comments IPF percentage (test code = 71994-6) 2.2 % 1-5.8 [place] MethodistBasic metabolic nwxub4767-54-45 06:39:32* Test Item Value Reference Range Interpretation Comments Sodium (test code = 2951-2) 139 135- 150 mEq/L Potassium (test code = 2823-3) 4.2 3.5- 5.0 mEq/L Chloride (test code = 2075-0) 104 98- 112 mEq/L CO2 (test code = 2028-9) 20 mmol/L 24-31 L Anion gap (test code = 70337-3) 15@ANIO 7- 15 mEq/L BUN (test code = 3094-0) 18 mg/dL 7-18 Creatinine (test code = 2160-0) 0.70 mg/dL 0.5-0.9 Glucose (test code = 2345-7) 99 mg/dL 65-100 Calcium (test code = 37118-9) 9.2 mg/dL 8.8-10.2 Lab Interpretation (test code = 02283-2) Abnormal [place] MethodistCT Bone Marrow Bx W Asp Same Plfh0925-07-86 13:41:26Hm Interface, Radiology Results 08/21/2019 1:44 PM CDTPerforming Rad iologist: Krish Yang MDAssistants: NoneAnesthesia Type: Under supervision of the physician, Versed and fentanyl were administered intravenously for moderate ivette tion. Pulse oximetry, heart rate, and blood pressure were continuously monitored by a radiology nurse. The physician spent 9 minutes of yakq-vb-gynd sedation ti me with the patient.Lidocaine 1% was used for local anesthetic. Pre Procedure Di agnosis:pancytopeniaPost Procedure Diagnosis:pancytopeniaProcedure:CT-guided bon e marrow biopsyTechnique:Written and informed consent for the procedure was obta ined from the patient. The patient was brought to the CT suite and placed in the prone position. Limited, noncontrast CT of the pelvis was obtained. An appropri ate site on the skin surface was then marked and prepped and draped in usual alejandro rile fashion. 1% lidocaine was used for local anesthesia.Under direct CT guidanc e, the posterior aspect of the right iliac bone was targeted using a 11 gauge On Control marrow biopsy needle. A bone marrow aspiration was attempted, however n o aspirate was obtained. The needle was repositioned and aspiration was reattemp abiola, however no further aspirate obtained. Single core biopsy were then obtained . The sample was given directly to a pharmaceutical representative from the hematology departme . The needle was then removed and hemostasis was achieved with manual compress ion.The patient tolerated the procedure well.Complications: NoneSpecimens Remove d:0 mL bone marrow aspirate; one core biopsy.Estimated Blood Loss: Less than 1 m LBlood/Blood Products: Administered: NoneGrafts/Implants: None.Findings:The bone s of the pelvis are unremarkable. 6 mm sclerotic lesion in the right sacrum, lik braxton a bone island.IMPRESSION:Successful CT-guided bone marrow biopsy of the righ t posterior ilium. No blood aspirated. Single core biopsy obtained. [facility] CITYJ-[id number] O28Keebehk MethodistHepatitis acute npadt6426-72-81 11:29:06* Test Item Value Reference Range Interpretation Comments Hepatitis A IgM (test code = 07362-4) Non-reactive Non-reactive Hepatitis B core IgM (test code = 93489-5) Non-reactive Non-reactiv e Hepatitis B surface Ag (test code = 5195-3) Non-reactive Non-reacti ve Hepatitis C Ab (test code = 83331-9) Non-reactive Non-reactive Luis Enrique MethodistTransthoracic Echocardiogram Complete, (w Contrast, Strain and 3D if needed)2019-08-21 09:21:28* Test Item Value Reference Range Interpretation Comments Velocity Ratio (V1/V2) (test code = 4689) 0.71 m/s AoV Mean PG (test code = 4374087732) 5.52 mmHg AV LVOT peak gradient (test code = 5222555731) 4.89 mmHg MV valve area p 1/2 method (test code = 4653966281) 6.23 cm2 E/A ratio (test code = 0624081896) 1.28 E wave decelartion time (test code = 2066666642) 121.72 msec LVOT Vmax (test code = 8700953825) 1.15 m/s LVOT VTI (test code = 5691131483) 0.22 m AoV Peak PG (test code = 8514359189) 10.10 mmHg MV Peak E Josh (test code = 4686966303) 0.95 m/s MV stenosis pressure 1/2 time (test code = 6412146966) 35.30 ms MV Peak A Josh (test code = 1333425107) 0.74 m/s BSA (test code = 9905803056) 1.51 m2 AoV Vmax (test code = 9808341290) 1.61 m/s BSA Owusu (test code = 0925802262) 1.59 m2 BSA Haycock (test code = 6791935048) 1.56 m2 TR Vpeak (test code = 5242004480) 2.90 mm/s BMI (test code = 7595241538) 26.75 kg/m2 MV E A ratio (test code = 4296704346) 1.28 TR pk grad (test code = 9605833233) 27.71 mmHg AR Press Half Time (test code = 2915582124) 361.65 ms LA area s A4C (test code = 5500358010) 19.34 cm2 LA Vol MOD A4C (test code = 0719003153) 59.43 ml AoV Vmn (test code = 6904592594) 1.11 AR slope (test code = 4198603799) 4.66 Ar Vmax (test code = 0583128968) 5.[address] A2C (test code = 9719083401) -23.25 % Glob [facility] [address] A4C (test code = 5332561586) -20.74 % Glob [facility] [address] ApLong (test code = 3898143688) -20.99 % Glob [address] (test code = 0854269203) -21.66 % AoV VTI (test code = 6699848043) 0.34 m MV AE ratio (test code = 0776955463) 0.78 LVOT Vmn (test code = 3791233642) 0.85 Pt Size (test code = 7187997782) 147.32 Pt Wt (test code = 2585329835) 58.06 LVOT mean grad (test code = 6542631022) 3.13 mmHg MAX Pred HR (test code = 8011464853) 159.39 85 of MPHR (test code = 1341196818) 135.48 AR DT (test code = 8283901283) 1115.03 msec AR pk grad (test code = 9360543907) 96.28 mmHg Calc MPHR (test code = 3220806870) 159.39 bpm MV Decel slope (test code = 5828021398) 7.79 m/s2 Pred Exer Dur R1 (test code = 8255006845) 7.84 Pred METS R1 (test code = 8864411481) 6.82 KO (test code = KO) Left ventricular systolic function is normal. Left Ventricular ejection fraction is 55 - 60%. Diastolic dysfunction is indeterminate. Left atrium size is moderately dilated. Mild tricuspid valve regurgitation. Mild mitral valve regurgitation. There is pericardial effusion. There is a trivial pericardial effusion localized near the right ventricle. No previous study available for comparison. [facility] Abdomen Sjtwntzn1299-45-00 09:21:23Hm Interface, Radiology Results 08/21/2019 9:24 AM CDTEXAM: US ABDOMEN COMPLETECLINICAL DATA: Abn liver function tests (LFTs), pancytopenia eval liver and spleenCOMPARISON: NONE.FINDINGS: PANCREAS: The head and body of the pancreas are unremarkable. The tail of the is not well seen on the current study.LIVER: The liver demonstrates normal echogenicity without focal mass or intrahepatic biliary ductal dilatation.MPV: Doppler evaluation of the portal vein demon strates normal hepatopedal flow. CBD: 0.37 cm within normal limits.GALLBLADDER: The gallbladder is without evidence of calculi. The gallbladder wall is not th ickened and there is no pericholecystic fluid.RIGHT KIDNEY: The right kidney is normal in size and echogenicity. There is no evidence of mass, calculi, or hydr onephrosis. The right kidney measures 9.39 cm LEFT KIDNEY: The left kidney is normal in size and echogenicity. There is no evidence of mass, calculi, or hydro nephrosis. The left kidney measures 8.78 cm .SPLEEN: The spleen is homogeneou s and not enlarged measuring 9.14 cm AORTA: The visualized upper abdominal aor ta demonstrates no evidence of ectasia or aneurysm.IVC: The visualized portions of the inferior vena cava are unremarkable.IMPRESSION:1. Normal abdominal ultr asound examination.2. The liver does not demonstrate any masses. There is no int rahepatic biliary dilatation.3. The gallbladder, spleen, kidneys and pancreas ar e unremarkable.[facility] CITYJ-[id number] ReligionPrepare RBC, 2 Wxbhp2105-96-60 23:46:00* Test Item Value Reference Range Interpretation Comments Product name (test code = 25) Red Blood Cells -1, Leukored Unit number (test code = 5683211) [id number] Product code (test code = 3092) [id number] Dispense status (test code = 24) Transfused Blood expiration date (test code = 302) [id number] Blood type code (test code = 308) 9500 Blood type (test code = 1314) O NEGATIVE Compatibility (test code = 6400) Compatible [place] AydveeousWglhkljahuy4512-34-73 23:31:59* Test Item Value Reference Range Interpretation Comments Haptoglobin (test code = 4542-7) 252 mg/dL 30-200 H Lab Interpretation (test code = 60126-7) Abnormal [place] ReligionVitamin B12 vhocl5037-15-60 22:53:26* Test Item Value Reference Range Interpretation Comments Vitamin B12 (test code = 2132-9) 665 pg/mL 231-931 Significant overlap exists between normal and deficiency states.However, most patients with deficiencies will have Serum B12 <200 pg/mL. [place] [facility]' (DEO)2019-08-20 19:44:00* Test Item Value Reference Range Interpretation Comments [id number]-IiH-[id number] Polyspecific (test code = 2585) NEG Luis nErique MaryXR Chest 1 Vw [id number] 18:56:16Hm Interface, Radiology Results 08/20/2019 6:59 PM CDTEXAMINATION: XR CHEST 1 VW PORTABLECLINICAL HISTORY: 59 years Female S OBCOMPARISON: NoneIMPRESSION:Heart size and pulmonary vasculature are normal. No focal infiltrate, pleural effusion or pneumothorax seen. Visualized osseous structures are intact. [id number] [facility] [id number] 18:18:38* Test Item Value Reference Range Interpretation Comments Ammonia (test code = 1841-6) 18 umol/L 11-51 Luis Enrique Mary
== END 2020-04-18 11:08 | disposition home or self-care (01) ==
LOC: ER 10:20
DX: D69.6 Thrombocytopenia, unspecified (principal); C92.00 Acute myeloblastic leukemia, not having achieved remission
CPT/HCPCS: 99282